=== PATIENT | female | born 1960 | race Caucasian/White ===

== ENCOUNTER 2018-04-14 04:39 | Emergency (ER) | payer MEDICARE, MEDICAID, SELFPAY ==
[2018-04-14 04:40] VITALS: BP 177/111; PULSE 90; RESP 17; TEMP 36.6; O2SAT 93; BMI 35.4
--- NOTE | 2018-04-14 04:48 | ED.VISSUMM ---
- ER Visit Summary Date of Service: 04/14/18 Chief Complaint: Constipation with abdominal cramping History of Present Illness: The patient is a 58 F with a history of hypertension and anxiety and depression. Only prior abdominal surgeries were for a C-sections ?2 and a tubal ligation. Patient states for the last 5-7 days she has had no significant bowel movement. She has a history of constipation. Denies any fever. States she is has lower abdominal cramping. Denies any dysuria, hematuria or urgency. States she is urinating normally. Denies any vaginal bleeding or discharge. Denies any trauma. States she has had some nausea and vomiting. Has never had a bowel obstruction. Has a known umbilical hernia. Physical Examination: Well-appearing older female. Vital signs are stable and afebrile. She does not look septic or toxic. She is in no acute distress. H EENT exam unremarkable. Moist wheeze membranes. Neck nontender. Lungs coarse breath sounds with a history of smoking but no rhonchi or rales. A few scattered minor wheezes. Heart regular rate and rhythm no murmur. Abdomen is soft. Nondistended. Normal bowel sounds. She is overweight. There is a umbilical hernia that easily reduces. It is not strangulated or incarcerated. It is nontender. She has no peritoneal signs. No masses. No pulsatile mass. There is no reproducible tenderness. Moving all 4 extremities. Neurovascularly intact. Back nontender. Neurologically awake and alert with no focal motor deficits. Test Results: Single view KUB film showed increased stool consistent with constipation otherwise unremarkable bowel gas pattern. No signs of obstruction. Emergency Department Course and Treatment: Patient will be treated his constipation. Her abdomen is benign. She will be discharged home with magnesium citrate. Treatment Plan: Oral magnesium citrate. Increase fiber and fluids. Stool softener as needed. Disposition: Discharge Impression: Acute constipation with abdominal cramping This note was generated with [employer] dictation software. It may contain incorrect words, spelling, and punctuation that were not noted in review of the chart prior to signing ED Disposition - Plan for ED Patient: Disposition: Home or Assisted Living Chief Complaint: Abd Pain Instructions: ED Constipation Referrals: Gloria Sheridan MD [Primary Care Provider] - 1-2 Days if not improving Additional Instructions: Plenty of water, fiber such as fruits and vegetables to help with constipation. Magnesium citrate to help with a bowel movement. Follow-up with the primary care physician if not improving.
--- NOTE | 2018-04-14 04:51 | ED.DEP ---
ED Disposition - Plan for ED Patient: Disposition: Home or Assisted Living Chief Complaint: Abd Pain Instructions: ED Constipation Prescriptions: Lisinopril/Hydrochlorothiazide [Zestoretic 20-12.5 mg Tablet] 1 ea PO DAILY #30 tab Referrals: Gloria Sheridan MD [Primary Care Provider] - 1-2 Days if not improving Additional Instructions: Plenty of water, fiber such as fruits and vegetables to help with constipation. Magnesium citrate to help with a bowel movement. Follow-up with the primary care physician if not improving.
[2018-04-14] MEDS: Magnesium Citrate 300 ML PO (05:27)
[2018-04-14 05:29] VITALS: PULSE 66; RESP 15; O2SAT 95
== END 2018-04-14 05:30 | disposition home or self-care (01) ==
PROVIDERS: Emergency Provider Emergency Medicine; Family Provider Internal Medicine; PCP Internal Medicine
DX: K59.00 Constipation, unspecified (principal); R10.9 Unspecified abdominal pain; R11.2 Nausea with vomiting, unspecified; K42.9 Umbilical hernia without obstruction or gangrene; I10 Essential (primary) hypertension; F41.9 Anxiety disorder, unspecified; F32.9 Major depressive disorder, single episode, unspecified; Z79.899 Other long term (current) drug therapy; Z72.0 Tobacco use
CPT/HCPCS: 74018; 99282

== ENCOUNTER 2018-04-24 05:58 | Emergency (ER) | payer MEDICARE, MEDICAID, SELFPAY ==
[2018-04-24 05:59] VITALS: BP 126/78; PULSE 92; RESP 22; TEMP 36.6; O2SAT 93; BMI 37.0
--- NOTE | 2018-04-24 06:17 | ED.DCSUM_ITS ---
- ER Visit Summary Date of Service: 04/24/18 Chief Complaint: Abdominal pain, constipation History of Present Illness: The patient is a 58 F who was seen in the ER on April 14 for constipation. A KUB revealed no obstruction. She was given magnesium citrate. Patient states this did clean her out but her symptoms have returned. She presents tonight by squad. She states she last ate yesterday morning. She is passing small pieces of hard stool. She has been passing gas. Past history significant for constipation, anxiety, hypertension, depression. She has had 2 prior C-sections and a tubal ligation. She does have an umbilical hernia. Physical Examination: Vital signs are unremarkable. Patient sitting upright in bed, moaning and rocking back and forth. Heart is regular rate and rhythm. Lung sounds are clear. Abdomen is soft with mild tenderness in the lower abdomen. There is no guarding or rebound. Hypoactive but present bowel sounds are noted throughout. Test Results: CBC was a white count of 18.4 but normal differential is noted. Hemoglobin is 16.2. Chemistry studies grossly unremarkable. CT scan of the abdomen and pelvis is pending. Emergency Department Course and Treatment: Patient was given morphine, Zofran, Bentyl, and IV fluids. On repeat evaluation she is resting much more comfortably. We will await CT scan results for final disposition and treatment. Treatment Plan: [] Disposition: [] Impression: 1. Abdominal pain 2. Constipation This note was generated with [employer] dictation software. It may contain incorrect words, spelling, and punctuation that were not noted in review of the chart prior to signing ED Disposition - Plan for ED Patient: Chief Complaint: Abd Pain Referrals: Gloria Sheridan MD [Primary Care Provider] -
[2018-04-24] MEDS: Ondansetron 4 MG/2 ML Vial IV (06:19)
[2018-04-24] MEDS: Dicyclomine 20 MG/2 ML Vial IM (06:19)
[2018-04-24] MEDS: Morphine 4 MG/ML Syringe IV (06:19)
[2018-04-24] MEDS: 0.9% Normal Saline 1,000 ML 150 ML IV (06:19)
[2018-04-24 06:36] LABS: Anion Gap 10 (5-15); BUN 13 mg/dL (7-18); BUN/Creat Ratio 11.8 RATIO (10-20); Calcium,Total 9.8 mg/dL (8.5-10.1); Chloride 102 mmol/L (98-107); EST Glomerular Filtration Rate 54 mL/min (>60); Est Glom Filt Rate - Afr Amer 65 mL/min (>60); Estimated Creatinine Clearance 46.96 ml/min; Glucose 142 mg/dL (74-106); Potassium 4.4 mmol/L (3.5-5.1); Sodium Level 137 mmol/L (136-145)
[2018-04-24 06:45] LABS: Absolute Lymphocyte Count 7.07 X10^3/ul (0.83-4.51); Absolute Neutrophil Count 9.7 X10^3/uL (2.0-7.7); Basophil# 0.08 X10^3/uL; Basophil% 0.4 % (0-1); Eosinophil# 0.26 X10^3/uL; Eosinophils% 1.4 % (0-5); Hematocrit 48.4 % (37-47); Hemoglobin 16.2 g/dl (12.0-15.0); Lymphocyte # 7.07 X10^3/ul (4.0); Lymphocyte % 38.5 % (19-41); Mean Corp Hgb Conc 33.5 g/gl (32-36); Mean Corpuscular Volume 95.7 fL (81-99); Mean Platelet Vol. 10.3 fl (6.2-12.0); Monocyte# 1.25 X10^3/uL; Monocyte% 6.8 % (0-10); Neutrophil # 9.68 X10^3/uL (2.7-7.7); Neutrophil % 52.7 % (47-70); Platelet Count 324 K/mm3 (150-450); RBC Distribution Width CV 13.2 % (11.6-14.6); RBC Distribution Width SD 45.7 fl (35.1-43.9); Red Blood Count 5.06 M/mm3 (4.2-5.4); White Blood Count 18.4 K/mm3 (4.4-11.0)
[2018-04-24 06:48] LABS: Differential Indicated SCAN CRITERIA MET; POSITIVE COUNT NO; POSITIVE DIFFERENTIAL YES; POSITIVE MORPHOLOGY NO
[2018-04-24 08:55] VITALS: BP 138/64; PULSE 72; RESP 15; O2SAT 96
[2018-04-24 10:17] VITALS: BP 124/69; PULSE 71; RESP 16; O2SAT 95
--- NOTE | 2018-04-24 12:28 | ED.DEP ---
ED Disposition - Plan for ED Patient: Chief Complaint: Abd Pain Instructions: ED Abdominal Pain Unkn Cause Prescriptions: Hydrocodone/Acetaminophen [[place] 5-325 Tablet] 1 ea PO 4X/DAY PRN PRN 5 Days #20 tab PRN Reason: Pain Metronidazole [Flagyl] 500 mg PO Q8H #21 tab Ciprofloxacin [Cipro] 500 mg PO BID #14 tab Referrals: Gloria Sheridan MD [Primary Care Provider] - 3-5 Days Sarita Montalvo MD [STAFF PHYSICIAN] - As soon as possible
--- NOTE | 2018-04-24 12:30 | ED.VISSUMM ---
- ER Visit Summary Date of Service: 04/24/18 Chief Complaint: [Abdominal pain] History of Present Illness: The patient is a 58 F [who presented to the emergency department complaint of abdominal pain that she has had for over a week. This is an addendum to initial dictation by Dr. Gregoria Belcher who fully evaluated patient initially saw the patient. Care of patient turned over to me in the morning awaiting results of CT scan of abdomen and pelvis. Patient apparently has been having some constipation issues and lower abdominal pain and cramping. Patient has not had any blood in her stool. She has not had any fevers. Patient's initial white blood cell count was elevated at 18,000. CT scan of the abdomen and pelvis obtained was read by radiology as 4.2 cm x 3.9 cm and homogenous hypodensity in the right adrenal gland and recommend correlation with MRI. CT scan also showed 3.2 x 2.5 x 4.6 cm hypodense mass in the cervix and recommended ultrasound for further evaluation. Ultrasound was obtained which showed a 3.3 x 3 x 2.3 cm complex solid cystic mass seen in the cul-de-sac which may represent an ovarian mass.] Physical Examination: [Patient continues to have some discomfort over the left lower quadrant. Her pain is significantly improved compared to presentation.] Test Results: [] Emergency Department Course and Treatment: [I discussed case with Dr. Montalvo who asked to see the patient in the office after discharge from ER.] Treatment Plan: [Patient will go up to the [facility] after discharge from ER. Patient also will follow up with her primary care physician regarding the findings on her adrenal gland to have outpatient MRI to evaluate further. Patient will be given a prescription for Cipro and Flagyl as I cannot rule out early diverticulitis given the location of the patient's pain and the elevated white count. Patient also describing a lot of cramping and pain with defecation. Patient also will be given a prescription for [place] for pain. Patient advised to take a daily stool softener.] Disposition: [Discharged home in stable condition] Impression: [Abdominal pain Adnexal mass Right adrenal mass] This note was generated with [employer] dictation software. It may contain incorrect words, spelling, and punctuation that were not noted in review of the chart prior to signing ED Disposition - Plan for ED Patient: Chief Complaint: Abd Pain Instructions: ED Abdominal Pain Unkn Cause Prescriptions: Hydrocodone/Acetaminophen [[place] 5-325 Tablet] 1 ea PO 4X/DAY PRN PRN 5 Days #20 tab PRN Reason: Pain Metronidazole [Flagyl] 500 mg PO Q8H #21 tab Ciprofloxacin [Cipro] 500 mg PO BID #14 tab Referrals: Gloria Sheridan MD [Primary Care Provider] - 3-5 Days Sarita Montalvo MD [STAFF PHYSICIAN] - As soon as possible
[2018-04-24] MEDS: metroNIDAZOLE 500 MG Tablet PO (12:45)
[2018-04-24] MEDS: Ciprofloxacin 500 MG Tablet PO (12:47)
[2018-04-24 12:53] VITALS: BP 128/74; PULSE 82; RESP 14; O2SAT 97; O2SAT 98
== END 2018-04-24 12:56 | disposition home or self-care (01) ==
PROVIDERS: Emergency Provider Emergency Medicine; Family Provider Internal Medicine; PCP Internal Medicine
DX: R10.32 Left lower quadrant pain (principal); R19.09 Other intra-abdominal and pelvic swelling, mass and lump; E27.9 Disorder of adrenal gland, unspecified; K59.00 Constipation, unspecified; F41.9 Anxiety disorder, unspecified; I10 Essential (primary) hypertension; F32.9 Major depressive disorder, single episode, unspecified; K42.9 Umbilical hernia without obstruction or gangrene; Z79.899 Other long term (current) drug therapy; N83.209 Unspecified ovarian cyst, unspecified side; N94.9 Unspecified condition associated with female genital organs and menstrual cycle
CPT/HCPCS: 74177; 76856; 80048; 82378; 85025; 86304; 96361; 96374; 96375; 99285; J7030; Q9967; A4216; J2405

== ENCOUNTER → 2018-04-24 13:38 | Outpatient (CLI) | payer MEDICARE, MEDICAID, SELFPAY ==
[2018-04-26 10:20] LABS: Cancer Antigen 125 28.9 U/mL (0.0-38.1); Carcinoembryonic Antigen 4.2 ng/mL (0.0-4.7)
== END ==
PROVIDERS: Family Provider Internal Medicine; PCP Internal Medicine; Visit Provider Nurse Practitioner Women's Health
DX: N83.209 Unspecified ovarian cyst, unspecified side (principal); N94.9 Unspecified condition associated with female genital organs and menstrual cycle
CPT/HCPCS: 82378; 86304

== ENCOUNTER 2018-05-14 06:10 | Emergency (ER) | payer MEDICARE, MEDICAID, SELFPAY ==
[2018-05-14 06:17] VITALS: BP 127/63; PULSE 87; RESP 20; TEMP 36.8; O2SAT 95; BMI 37.8
--- NOTE | 2018-05-14 06:31 | CT_ITS ---
STUDY: CT ABDOMEN WITH CONTRAST REASON FOR EXAM: Female, 58 years old. Abdominal pain and constipation. History of recent bowel surgery. Recent oophorectomy. RADIATION DOSAGE (If Supplied By Facility): CTDIvol = ( 18.36 ) mGy, DLP = ( 1162.03 ) mGycm TECHNIQUE: Transaxial images were obtained post I.V. administration of 100 ml of Isovue 300 contrast, and with oral contrast. Sagittal and coronal images were reconstructed. Individualized dose optimization techniques were used for this CT. COMPARISON: Comparison is made with prior study dated April 24, 2018. FINDINGS: Stable minimal increased linear markings in the anterior medial aspect of the lingular segment of the left upper lobe. The visualized portions of the heart are within normal limits. There is hepatomegaly with diffuse hepatic enlargement. Normal gallbladder and extrahepatic biliary system. Normal spleen. Normal pancreas. 4.2 cm x 3.9 cm hypodense mass in the right adrenal gland. This appears to contain fat within it suggestive of a large adrenal adenoma. Normal right kidney. Normal left kidney. There is a small hiatal hernia. Normal small intestine. There are multiple colonic diverticula consistent with diverticulosis. The appendix is visualized and appears normal. There is diffuse atherosclerotic calcification of the abdominal aorta, without a demonstrated aneurysm. Once again, mural thrombus is seen. The distal abdominal aorta has a transverse dimension of 2.3 cm. Normal inferior vena cava. Normal retroperitoneum. Stable 3.7 cm x 1.7 cm cystic structure is seen in the region of the uterine cervix. This may represent a large nabothian cyst. Since prior study, there has been repair of the umbilical hernia. Postoperative changes are seen in the subcutaneous fat. There are mild degenerative changes of the visualized lumbar spine. CT/Abdomen/Pelvis WITH Contrast IMPRESSION: Sigmoid diverticulosis. Stable cystic structure in the region of the uterine fundus suggestive of a possible nabothian cyst. Postoperative changes in the region of the umbilical hernia repair. Electronically Signed: Richard Ndiaye MD at 9:14 EDT Tel [phone], Service support ,
[2018-05-14] MEDS: 0.9% Normal Saline 1,000 ML 150 ML IV (06:41)
[2018-05-14 06:44] LABS: Mucous, Urine 0 SEEN /hpf (<or=2+); Red Blood Cells-Urine 0 SEEN /hpf (0-5)
[2018-05-14 06:54] LABS: Color, Urine Yellow (Yellow); Glucose, Dipstick Normal (Normal); Ketone-Dipstick Negative (Negative); Leukocyte Esterase-Dipstick 500 /ul (Negative); Nitrite-Dipstick Negative (Negative); Occult Blood-Urine 10 /ul (Negative); Protein-Dipstick Negative (Negative); Urine Bilirubin Dipstick Negative (Negative); Urine Clarity Clear (Clear); Urine Urobilinogen Normal (Normal)
[2018-05-14 07:02] LABS: Absolute Lymphocyte Count 3.33 X10^3/ul (0.83-4.51); Absolute Neutrophil Count 9.2 X10^3/uL (2.0-7.7); Bacteria RARE /hpf (None Seen); Basophil# 0.04 X10^3/uL; Basophil% 0.3 % (0-1); Eosinophils% 0.7 % (0-5); Hematocrit 44.4 % (37-47); Hemoglobin 14.6 g/dl (12.0-15.0); Lymphocyte # 3.33 X10^3/ul (4.0); Lymphocyte % 23.9 % (19-41); Mean Corp Hgb Conc 32.9 g/gl (32-36); Mean Corpuscular Hgb 31.1 pg (27.0-32.0); Mean Corpuscular Volume 94.7 fL (81-99); Mean Platelet Vol. 10.1 fl (6.2-12.0); Monocyte# 1.22 X10^3/uL; Monocyte% 8.7 % (0-10); Neutrophil # 9.24 X10^3/uL (2.7-7.7); Neutrophil % 66.3 % (47-70); Platelet Count 291 K/mm3 (150-450); RBC Distribution Width CV 13.3 % (11.6-14.6); RBC Distribution Width SD 45.7 fl (35.1-43.9); Red Blood Count 4.69 M/mm3 (4.2-5.4); Squamous Epithelial Cells - UA 5-10 SEEN /hpf (5-10); White Blood Cells 5-10 SEEN /hpf (0-5)
[2018-05-14 07:07] LABS: POSITIVE COUNT NO; POSITIVE DIFFERENTIAL NO; POSITIVE MORPHOLOGY NO
[2018-05-14 07:09] LABS: Anion Gap 10 (5-15); BUN 14 mg/dL (7-18); BUN/Creat Ratio 16.1 RATIO (10-20); Calcium,Total 9.1 mg/dL (8.5-10.1); Chloride 99 mmol/L (98-107); Creatinine, Serum 0.87 mg/dL (0.55-1.02); EST Glomerular Filtration Rate 71 mL/min (>60); Est Glom Filt Rate - Afr Amer 86 mL/min (>60); Estimated Creatinine Clearance 59.38 ml/min; Glucose 119 mg/dL (74-106); Potassium 3.9 mmol/L (3.5-5.1); Sodium Level 135 mmol/L (136-145)
--- NOTE | 2018-05-14 07:18 | ED.VISSUMM ---
- ER Visit Summary Date of Service: 05/14/18 Chief Complaint: Abdominal pain, constipation History of Present Illness: The patient is a 58 F with history of recurrent abdominal pain and constipation. On workup approximately 1 month ago patient was found to have what appeared to be left ovarian mass. She underwent BSO/hernia repair surgery May 06 for this pelvic mass at [facility] in [place]. Patient states that the pathology report on the ovaries was normal. She states the surgeon told her there is a cystic-like structure in the left lower quadrant but the surgeon believes to be part of the bowel that may be causing intermittent obstruction. Patient now presents with recurrent left lower quadrant pain and spasms and reports constipation. She states she had a small bowel movement this morning prior to arrival. Last bowel movement prior to that was 2 days ago. Physical Examination: Vital signs are unremarkable. Patient is sitting upright in bed. She is intermittently tearful. Head neck examination unremarkable. Heart is regular rate and rhythm. Lung sounds are clear. Abdomen is soft with mild lower abdominal tenderness. No guarding or rebound. Hypoactive bowel sounds noted throughout. Laparoscopy sites are clean without sign of infection. Test Results: CBC was a white count of 14.0 with normal differential. Chemistry studies unremarkable. Urinalysis shows 5-10 white cells, however there are 5-10 epithelial cells as well. No nitrites are noted. Emergency Department Course and Treatment: Patient is given IV fluids. She declines anything for pain. CT abdomen pelvis with contrast will be obtained. This will be sent out to oncoming physician. Treatment Plan: [] Disposition: Pending CT scan Impression: Postop abdominal pain This note was generated with [employer] dictation software. It may contain incorrect words, spelling, and punctuation that were not noted in review of the chart prior to signing ED Disposition - Plan for ED Patient: Chief Complaint: Abd Pain Referrals: Gloria Sheridan MD [Primary Care Provider] -
--- NOTE | 2018-05-14 07:21 | ED.DCSUM_ITS ---
- ER Visit Summary Date of Service: 05/14/18 Chief Complaint: Abdominal pain, constipation History of Present Illness: The patient is a 58 F with history of recurrent abdominal pain and constipation. On workup approximately 1 month ago patient was found to have what appeared to be left ovarian mass. She underwent BSO/ hernia repair surgery May 06 for this pelvic mass at [facility] in [place]. Patient states that the pathology report on the ovaries was normal. She states the surgeon told her there is a cystic-like structure in the left lower quadrant but the surgeon believes to be part of the bowel that may be causing intermittent obstruction. Patient now presents with recurrent left lower quadrant pain and spasms and reports constipation. She states she had a small bowel movement this morning prior to arrival. Last bowel movement prior to that was 2 days ago. Physical Examination: Vital signs are unremarkable. Patient is sitting upright in bed. She is intermittently tearful. Head neck examination unremarkable. Heart is regular rate and rhythm. Lung sounds are clear. Abdomen is soft with mild lower abdominal tenderness. No guarding or rebound. Hypoactive bowel sounds noted throughout. Laparoscopy sites are clean without sign of infection. Test Results: CBC was a white count of 14.0 with normal differential. Chemistry studies unremarkable. Urinalysis shows 5-10 white cells, however there are 5-10 epithelial cells as well. No nitrites are noted. Emergency Department Course and Treatment: Patient is given IV fluids. She declines anything for pain. CT abdomen pelvis with contrast will be obtained. This will be sent out to oncoming physician. Treatment Plan: [] Disposition: Pending CT scan Impression: Postop abdominal pain This note was generated with [employer] dictation software. It may contain incorrect words, spelling, and punctuation that were not noted in review of the chart prior to signing ED Disposition - Plan for ED Patient: Chief Complaint: Abd Pain Referrals: Gloria Sheridan MD [Primary Care Provider] -
[2018-05-14 08:38] VITALS: BP 155/74; PULSE 87; RESP 16; O2SAT 100
--- NOTE | 2018-05-14 09:32 | ED.DCSUM_ITS ---
- ER Visit Summary Date of Service: 05/14/18 Chief Complaint: [] History of Present Illness: The patient is a 58 F [] Physical Examination: [] Test Results: [] Emergency Department Course and Treatment: [] Treatment Plan: [] Disposition: [] Impression: [] This note was generated with [employer] dictation software. It may contain incorrect words, spelling, and punctuation that were not noted in review of the chart prior to signing ED Disposition - Plan for ED Patient: Disposition: Home or Assisted Living Chief Complaint: Abd Pain Instructions: ED Constipation, ED Abdominal Pain Unkn Cause Prescriptions: Dicyclomine HCl [Bentyl] 20 mg PO TIDAC #20 cap Referrals: Gloria Sheridan MD [Primary Care Provider] - Additional Instructions: Drink/take Metamucil 3 times a day until your bowels began to move. After you have results decrease to Metamucil twice a day.
[2018-05-14 10:22] VITALS: BP 154/78; PULSE 81; RESP 16; O2SAT 98
--- NOTE | 2018-05-14 11:01 | ED.VISSUMM ---
- ER Visit Summary Date of Service: 05/14/18 Chief Complaint: [] History of Present Illness: The patient is a 58 F [] Physical Examination: [] Test Results: [] Emergency Department Course and Treatment: [] Treatment Plan: [] Disposition: [] Impression: [] This note was generated with [employer] dictation software. It may contain incorrect words, spelling, and punctuation that were not noted in review of the chart prior to signing ED Disposition - Plan for ED Patient: Disposition: Home or Assisted Living Chief Complaint: Abd Pain Instructions: ED Abdominal Pain Unkn Cause, ED Constipation Prescriptions: Dicyclomine HCl [Bentyl] 20 mg PO TIDAC #20 cap Psyllium Husk [Metamucil] 660 gm PO TID #1 powder Referrals: Gloria Sheridan MD [Primary Care Provider] - Additional Instructions: Drink/take Metamucil 3 times a day until your bowels began to move. After you have results decrease to Metamucil twice a day.
--- NOTE | 2018-05-14 11:04 | ED.DCSUM_ITS ---
- ER Visit Summary Date of Service: 05/14/18 Chief Complaint: [] History of Present Illness: The patient is a 58 F [] Physical Examination: [] Test Results: [] Emergency Department Course and Treatment: [] Treatment Plan: [] Disposition: [] Impression: [] This note was generated with [employer] dictation software. It may contain incorrect words, spelling, and punctuation that were not noted in review of the chart prior to signing ED Disposition - Plan for ED Patient: Disposition: Home or Assisted Living Chief Complaint: Abd Pain Instructions: ED Abdominal Pain Unkn Cause, ED Constipation Prescriptions: Dicyclomine HCl [Bentyl] 20 mg PO TIDAC #20 cap Psyllium Husk [Metamucil] 660 gm PO TID #1 powder Referrals: Gloria Sheridan MD [Primary Care Provider] - Additional Instructions: Drink/take Metamucil 3 times a day until your bowels began to move. After you have results decrease to Metamucil twice a day.
== END 2018-05-14 11:00 | disposition home or self-care (01) ==
PROVIDERS: Emergency Medicine; Emergency Provider Emergency Medicine; Family Provider Internal Medicine; PCP Internal Medicine
DX: R10.32 Left lower quadrant pain (principal); Z98.890 Other specified postprocedural states; Z90.722 Acquired absence of ovaries, bilateral; K59.00 Constipation, unspecified; K57.30 Diverticulosis of large intestine without perforation or abscess without bleeding; N85.8 Other specified noninflammatory disorders of uterus; K21.9 Gastro-esophageal reflux disease without esophagitis; I10 Essential (primary) hypertension; F41.9 Anxiety disorder, unspecified; F32.9 Major depressive disorder, single episode, unspecified; Z87.19 Personal history of other diseases of the digestive system; Z79.899 Other long term (current) drug therapy; Z72.0 Tobacco use
CPT/HCPCS: 74177; 80048; 81001; 85025; 96360; 96361; 99285; Q9967

== ENCOUNTER 2018-06-22 07:10 | Inpatient (IN) | payer MEDICARE, MEDICAID, SELFPAY ==
[2018-06-22 07:11] VITALS: BP 150/107; PULSE 80; RESP 18; TEMP 37; O2SAT 99; BMI 36.6
--- NOTE | 2018-06-22 07:28 | CT_ITS ---
STUDY: CT ABDOMEN AND PELVIS WITH CONTRAST REASON FOR EXAM: Female, 58 years old. Abdominal pain, nausea and bloody stool. RADIATION DOSAGE (If Supplied By Facility): CTDIvol = ( 17.07 ) mGy, DLP = ( 1197.95 ) mGycm TECHNIQUE: Transaxial images were obtained from the dome of the diaphragm to the symphysis pubis without oral contrast. 100 ml of Isovue 300 contrast was administered. Sagittal and coronal images were reconstructed. Individualized dose optimization techniques were used for this CT. COMPARISON: 05/14/2018. FINDINGS: The visualized lung bases are essentially unremarkable. The visualized portions of the heart are within normal limits. Normal liver. Normal gallbladder and extrahepatic biliary system. Normal spleen. Normal pancreas. There again is a 4 cm hypodense mass in the right adrenal gland unchanged since prior examination which may represent adenoma. The left adrenal gland is unremarkable. Normal right kidney. Normal left kidney. There is a small hiatal hernia. There is thickening of the gastric wall probably due to underdistention. The small bowel loops are normal in caliber. There is fecal retention. There is diverticulosis of the sigmoid colon. There is thickening of the descending colon and proximal sigmoid colon likely due to colitis.. There is no evidence of free air. No drainable abscess is seen. The appendix is visualized and appears normal. There again are atherosclerotic calcifications of the abdominal aorta with intramural thrombus. There is ectasia of the distal abdominal aorta. Normal inferior vena cava. Normal retroperitoneum. Normal urinary bladder. There again is a cystic lesion in the region of the cervix measuring about 4.86 x 3 cm unchanged since prior exam. There again is stranding in the anterior abdominal wall consistent with previous hernia repair. Mild degenerative changes in the lower thoracic spine are again seen. CT/Abdomen/Pelvis W IV Cont ONLY IMPRESSION: 1. Thickening of the distal descending colon consistent with colitis extending to the to the region of the sigmoid diverticulosis. 2. No drainable abscess is seen. 3. Persistent cystic lesion in the region of the cervix unchanged since the prior exam. 4. Right adrenal mass unchanged since prior examination. Electronically Signed: Jed Hoff MD at 9:24 EDT Tel , Service support ,
[2018-06-22] MEDS: 0.9% Normal Saline 1,000 ML 125 ML IV ×3 (07:44→17:12)
[2018-06-22] MEDS: Morphine 4 MG/ML Syringe IV (07:44)
[2018-06-22] MEDS: Ondansetron 4 MG/2 ML Vial IV (07:45)
[2018-06-22 07:53] LABS: Absolute Lymphocyte Count 2.37 X10^3/ul (0.83-4.51); Absolute Neutrophil Count 14.8 X10^3/uL (2.0-7.7); Basophil# 0.05 X10^3/uL; Basophil% 0.3 % (0-1); Eosinophil# 0.01 X10^3/uL; Eosinophils% 0.1 % (0-5); Hematocrit 47.3 % (37-47); Hemoglobin 15.6 g/dl (12.0-15.0); Lymphocyte # 2.37 X10^3/ul (4.0); Lymphocyte % 13.1 % (19-41); Mean Corpuscular Hgb 31.4 pg (27.0-32.0); Mean Corpuscular Volume 95.2 fL (81-99); Mean Platelet Vol. 10.1 fl (6.2-12.0); Monocyte# 0.73 X10^3/uL; Neutrophil # 14.84 X10^3/uL (2.7-7.7); Neutrophil % 82.2 % (47-70); Platelet Count 264 K/mm3 (150-450); RBC Distribution Width CV 14.1 % (11.6-14.6); RBC Distribution Width SD 48.8 fl (35.1-43.9); Red Blood Count 4.97 M/mm3 (4.2-5.4); White Blood Count 18.1 K/mm3 (4.4-11.0)
--- NOTE | 2018-06-22 07:54 | ED.VISSUMM ---
- ER Visit Summary Date of Service: 06/22/18 Chief Complaint: Abdominal pain History of Present Illness: The patient is a 58 F who states that last evening she developed nausea and vomiting. He was having abdominal cramps. This morning she had several bowel movements (3) that were loose and had bright red blood with occasional clots. The patient states that she had surgery at the end of April at [facility]. She had umbilical hernia repair and bilateral oophorectomy. The oophorectomy reportedly was done for left ovarian mass per her was found not to be connected with the ovary and was determined to be benign. She took Bentyl at around 11 PM last night and states that helped. She has a history of diverticulosis. Physical Examination: Afebrile vital signs are stable Gen: Well-nourished well-developed obesity Head: Normocephalic atraumatic Eyes: Perrl EOMI ENT: TMs clear no rhinorrhea moist mucous membranes Neck: Supple no lymphadenopathy no JVD nontender CVS: Regular rate rhythm no murmurs normal S1-S2 Respiratory: No distress clear to auscultation bilaterally chest nontender Abdomen: Soft tender in the suprapubic and left lower quadrant regions nondistended normal bowel sounds no masses there are well-healed laparoscopic port incisions Back: Nontender Extremity: Nontender no edema Skin: Normal color no rash Neuro: alert orientated ?3 CN II-XII intact normal strength sensation reflexes gait cerebellar Psych: Anxious and dramatic affect and seemingly writhing around on the bed Test Results: White count elevated 18.1. Lactic acid 2.2. BUN of 20 with a creatinine of 0.95. Normal LFTs and lipase. CT of the abdomen pelvis with IV contrast demonstrated descending colitis. No obvious abscess. The see radiologist's read for further details. Emergency Department Course and Treatment: IV was established patient received IV fluids Zofran and morphine. She initially did not want any morphine and stated that she does not like the way that she feels however given her degree of moaning and writhing she decided she would take some. Before was pushed she was complaining that her whole arm was going numb but that resolved when it was identified that she had not yet received the medication. Since that time the patient has been resting quite comfortably even able to get some sleep. CT was reviewed with the patient as well as her lab work. She received Cipro and Flagyl. Plan is admission into the hospital. Impression: 1. Acute descending colitis 2. Sepsis This note was generated with [employer] dictation software. It may contain incorrect words, spelling, and punctuation that were not noted in review of the chart prior to signing ED Disposition - Plan for ED Patient: Chief Complaint: Abd Pain Referrals: Gloria Sheridan MD [Primary Care Provider] -
[2018-06-22 07:58] LABS: POSITIVE COUNT NO; POSITIVE DIFFERENTIAL NO; POSITIVE MORPHOLOGY NO
[2018-06-22 08:07] LABS: ALB/GLOB Ratio 0.8 RATIO (0.9-2.4); AST(SGOT) 16 U/L (15-37); Alanine Aminotransfer ALT/SGPT 22 U/L (13-56); Albumin, Serum 3.8 g/dL (3.2-5.0); Alkaline Phosphatase 92 U/L (45-117); Anion Gap 7 (5-15); BUN 20 mg/dL (7-18); Calcium,Total 9.7 mg/dL (8.5-10.1); Chloride 103 mmol/L (98-107); Creatinine, Serum 0.95 mg/dL (0.55-1.02); EST Glomerular Filtration Rate 64 mL/min (>60); Est Glom Filt Rate - Afr Amer 77 mL/min (>60); Estimated Creatinine Clearance 54.38 ml/min; Globulin 4.9 g/dL (2.2-4.2); Glucose 148 mg/dL (74-106); Lipase 64 U/L (73-393); Potassium 4.3 mmol/L (3.5-5.1); Protein, Total 8.7 g/dL (6.4-8.2); Sodium Level 136 mmol/L (136-145)
[2018-06-22 08:16] LABS: Lactic Acid 2.2 mmol/L (0.4-2.0)
--- NOTE | 2018-06-22 08:19 | ED.RN ---
lactic 2.2 called from the lab dr salcedo aware
[2018-06-22 08:28] LABS: International Normalized Ratio 0.9; Prothrombin Time (Protime)PT. 12.6 SECONDS (11.7-14.9)
[2018-06-22 08:29] LABS: Partial Thromboplast Time 30.9 Seconds (24.1-36.2)
[2018-06-22 09:00] VITALS: BP 129/56; PULSE 72; RESP 14; O2SAT 93
[2018-06-22] MEDS: Ciprofloxacin 400 MG/200 ML BAG 200 MG IV ×2 (09:37→21:31)
--- NOTE | 2018-06-22 09:51 | NURSING ---
DR ORANTES FOR DR PRESCOTT
--- NOTE | 2018-06-22 09:58 | NURSING ---
MED SURG ACUTE COLITIS ROBS
[2018-06-22 11:03] VITALS: BMI 35.9
[2018-06-22 11:22] VITALS: BP 115/77; PULSE 68; RESP 16; TEMP 36.9; O2SAT 93
[2018-06-22] MEDS: Morphine 2 MG/ML Syringe IV ×3 (11:42→22:17)
[2018-06-22] MEDS: Enoxaparin 40 MG/0.4 ML Syringe SC (11:44)
[2018-06-22 11:47] LABS: Reflex Lactate? Y
[2018-06-22 12:31] LABS: Lactic Acid 1.6 mmol/L (0.4-2.0)
[2018-06-22 14:47] VITALS: BP 100/52; PULSE 66; RESP 16; TEMP 37.2; O2SAT 92
--- NOTE | 2018-06-22 15:31 | HP.PCM_ITS ---
Problem List (1) HTN (hypertension) Status: Chronic (2) Colitis Status: Acute (3) GERD (gastroesophageal reflux disease) Status: Acute (4) HLD (hyperlipidemia) Status: Acute (5) Insomnia Status: Acute History of Present Illness Date of Admission: 06/22/18 Chief Complaint: Abdominal Pain The patient is a 58 year old F with a PMH as above who presents with a 1 day h/o abdominal pain, melena, and dry heaving with nausea. She has had this before with prior episodes of diverticulitis. She had recent abdominal surgery with an umbilical hernia repair as well as an oophorectomy for a mass that was benign. She is also aware of the adrenal mass. In the ER she had a CT scan with fat stranding in the LLQ without perforation. She had a leukocytosis to 18 and a lactic acid of 2.2. VSS. Some fevers and chills, but no SOB or CP. No radiation of her pain. Past Medical History Past Medical History (Chronic Problems): Chronic Problems (Last Updated 04/24/18 @ 13:20 by Chelsey Brunner) HTN (hypertension) (Chronic) Medical History: Medical History (Last Updated 04/24/18 @ 13:20 by Chelsey Brunner) Anxiety F41.9 Depression F32.9 History of high cholesterol Z86.39 PTSD (post-traumatic stress disorder) F43.10 Allergies Latex, Natural Rubber Allergy (Verified 06/22/18 11:15) Rash Penicillins Allergy (Verified 06/22/18 07:14) Rash Home Medications: Ambulatory Orders Medication Instructions Recorded Acetaminophen [Pain Relief] 500 mg PO Q6H PRN PRN 04/14/18 Lisinopril/Hydrochlorothiazide 1 ea PO DAILY #30 tab 04/14/18 [Zestoretic 20-12.5 mg Tablet] Omeprazole [Prilosec] 40 mg PO DAILY 04/24/18 Albuterol Inhaler [Ventolin Hfa 2 puff INHALATION Q4H PRN PRN 05/14/18 (SP)] Dicyclomine HCl [Bentyl] 20 mg PO TIDAC #20 cap 05/14/18 Hydroxyzine HCl 25 mg PO Q6H PRN 05/14/18 Simvastatin [Zocor] 40 mg PO QHS 06/22/18 traZODone [Desyrel] 50 mg PO QHS 06/22/18 Surgical History: Surgical History (Last Updated 04/24/18 @ 13:20 by Chelsey Brunner) H/O tubal ligation Z98.51 History of section, classical Z98.891 Smoking Status: Current every day smoker Alcohol: None Drugs: None - *Family History Maternal History Items: Diabetes, Heart Disease Review of Systems Constitutional: Reports: Chills, Fever HEENT: Denies: Head Aches, Sinus Congestion, Sinus Drainage Cardiovascular: Denies: Chest Pain, Palpitations Respiratory: Denies: Cough, Shortness of breath at rest, Sputum production Gastrointestinal: Reports: Abdominal Pain, Nausea, Melena. Denies: Vomiting Genitourinary: Denies: Dysuria Musculoskeletal: Denies: Joint Pain, Joint Tenderness Skin: Denies: Rash, Wounds Neurological: Denies: Numbness, Tingling, Focal weakness Psychiatric: Denies: Anxiety, Depression Hematologic/ Lymphatic: Denies: Easy Bruising, Easy Bleeding VTE Information - Inpt Only VTE Present on Admission: No Patient Problems: Active and Suspected Problems (Last Updated 04/24/18 @ 13:20 by Chelsey Brunner) Colitis (Acute) GERD (gastroesophageal reflux disease) (Acute) HLD (hyperlipidemia) (Acute) Insomnia (Acute) - Physical Exam General: Alert, Oriented x3, Cooperative, No apparent distress HEENT: Atraumatic, PERRLA, EOMI, Normocephalic Oral: Moist Mucosa Neck: Supple, No JVD Lungs: Normal air movement, No rhonchi, No rales, Wheezes Cardiovascular: Regular rate, Regular Rhythm, Normal S1, Normal S2, No murmurs Abdomen: Soft, Non-Distended, No Hepato-splenomegaly, Tender - mild, to LLQ Extremities: No edema, Capillary Refill Less than 3 Seconds Skin: No rashes, No breakdown Neurological: Neuro grossly intact, Sensory exam intact to light touch and pain Psych/Mental Status: Normal Affect, Appropriate Vital Signs Temp Pulse Resp BP Pulse Ox 98.9 F 66 16 100/52 L 92 06/22/18 14:47 06/22/18 14:47 06/22/18 14:47 06/22/18 14:47 06/22/18 14:47 Oxygen Delivery Method Room Air Weight: 209 lb Body Mass Index (BMI) 35.9 Laboratory Tests Past 24 Hrs 06/22/18 06/22/18 06/22/18 07:42 07:42 07:42 WBC 18.1 H RBC 4.97 Hgb 15.6 H Hct 47.3 H MCV 95.2 MCH 31.4 MCHC 33.0 RDW 14.1 RDW Differential 48.8 H Plt Count 264 MPV 10.1 Immature Gran % (Auto) 0.300 Neut % (Auto) 82.2 H Lymph % (Auto) 13.1 L Mckinley % (Auto) 4.0 Eos % (Auto) 0.1 Baso % (Auto) 0.3 Absolute Neuts (auto) 14.8 H Absolute Lymphs (auto) 2.37 Total Counted Not Reportable PT 12.6 INR 0.9 APTT 30.9 Sodium 136 Potassium 4.3 Chloride 103 Carbon Dioxide 26.0 Anion Gap 7 BUN 20 H Creatinine 0.95 Estim Creat Clear Calc 54.38 Est GFR (MDRD) Af Amer 77 Est GFR (MDRD) Non-Af 64 BUN/Creatinine Ratio 21.0 H Glucose 148 H Lactic Acid Calcium 9.7 Total Bilirubin 0.40 AST 16 ALT 22 Alkaline Phosphatase 92 Total Protein 8.7 H Albumin 3.8 Globulin 4.9 H Albumin/Globulin Ratio 0.8 L Lipase 64 L 06/22/18 06/22/18 07:42 11:55 WBC RBC Hgb Hct MCV MCH MCHC RDW RDW Differential Plt Count MPV Immature Gran % (Auto) Neut % (Auto) Lymph % (Auto) Mckinley % (Auto) Eos % (Auto) Baso % (Auto) Absolute Neuts (auto) Absolute Lymphs (auto) Total Counted PT INR APTT Sodium Potassium Chloride Carbon Dioxide Anion Gap BUN Creatinine Estim Creat Clear Calc Est GFR (MDRD) Af Amer Est GFR (MDRD) Non-Af BUN/Creatinine Ratio Glucose Lactic Acid 2.2 H 1.6 Calcium Total Bilirubin AST ALT Alkaline Phosphatase Total Protein Albumin Globulin Albumin/Globulin Ratio Lipase Assessment/Plan All Active Problems (Last Updated 04/24/18 @ 13:20 by Chelsey Brunner) Colitis (Acute) GERD (gastroesophageal reflux disease) (Acute) HLD (hyperlipidemia) (Acute) Insomnia (Acute) 1. Colitis - c/w Cipro flagyl for now - NPO - IVF@125 - Morphine PRN - Repeat lactate 1.6 2. Wheezing - she denies COPD/Asthma diagnosis - Will c/w albuterol 3. HTN/HLD - stable a 115/77 - C/w BP medications and statin 4. Depression/Anxiety/Insomnia - stable - c/w hydroxyzine and trazodone 5. GERD - stable - c/w PPI DVT: Lovenox Diet: NPO Code Visit Inpatient E&M: 57578 Init Hosp L3
[2018-06-22 20:15] VITALS: BP 106/47; PULSE 73; RESP 20; TEMP 37.1; O2SAT 96
[2018-06-22 20:20] VITALS: PULSE 76; RESP 20
[2018-06-22] MEDS: Atorvastatin Calcium 20 MG Tablet PO (22:09)
[2018-06-22] MEDS: traZODone 50 MG Tablet PO (22:09)
[2018-06-22] MEDS: 0.9% NaCl Peripheral Flush Adult/Peds IV ×2 (22:17→22:32)
[2018-06-23] MEDS: Morphine 2 MG/ML Syringe IV ×3 (03:39→15:50)
[2018-06-23] MEDS: 0.9% NaCl Peripheral Flush Adult/Peds IV (03:43)
[2018-06-23] MEDS: 0.9% Normal Saline 1,000 ML 125 ML IV ×3 (03:47→21:23)
[2018-06-23] MEDS: hydrOXYzine PAM 25 MG Capsule PO (03:47)
[2018-06-23 03:52] VITALS: BP 136/56; PULSE 73; RESP 18; TEMP 36.5; O2SAT 94
--- NOTE | 2018-06-23 03:53 | NURSING ---
Found patient sitting at side of bed talking on phone to her roommate. Patient was complaining that she hasnt been able to drink and eat since coming to this floor. Pt stated she was painful, and had stuffed up sinus from wearing 02 nasal cannula. Pt told roommate, she just wants to go home. When patient hung up. Nurse explained that nothing to eat or drink is the plan of care for someone with colitis. Pt c/o dry mouth, nurse encouraged patient to use mouth swabs set up at bedside for comfort of dry mouth. Pt very anxious. Nurse suggested that giving morphine for her pain, and vistaril for anxiety. Pt agreed to stay. Pt took a walk and is currently sitting in recliner about to fall asleep.
[2018-06-23 07:38] LABS: Absolute Lymphocyte Count 1.89 X10^3/ul (0.83-4.51); Absolute Neutrophil Count 8.1 X10^3/uL (2.0-7.7); Basophil# 0.02 X10^3/uL; Basophil% 0.2 % (0-1); Eosinophil# 0.03 X10^3/uL; Eosinophils% 0.3 % (0-5); Hematocrit 38.4 % (37-47); Hemoglobin 12.3 g/dl (12.0-15.0); Lymphocyte # 1.89 X10^3/ul (4.0); Lymphocyte % 17.4 % (19-41); Mean Corpuscular Hgb 31.1 pg (27.0-32.0); Mean Corpuscular Volume 97.2 fL (81-99); Monocyte# 0.85 X10^3/uL; Monocyte% 7.8 % (0-10); Neutrophil # 8.05 X10^3/uL (2.7-7.7); Neutrophil % 74.1 % (47-70); Platelet Count 194 K/mm3 (150-450); RBC Distribution Width CV 14.3 % (11.6-14.6); RBC Distribution Width SD 50.3 fl (35.1-43.9); Red Blood Count 3.95 M/mm3 (4.2-5.4); White Blood Count 10.9 K/mm3 (4.4-11.0)
[2018-06-23] MEDS: Dicyclomine 10 MG Capsule 20 MG PO ×3 (07:45→15:48)
[2018-06-23 07:50] LABS: POSITIVE COUNT NO; POSITIVE DIFFERENTIAL NO; POSITIVE MORPHOLOGY NO
[2018-06-23 07:54] VITALS: BP 115/45; PULSE 72; RESP 16; TEMP 37.3; O2SAT 92
[2018-06-23] MEDS: Acetaminophen 500 MG Tablet PO ×2 (08:02→23:14)
[2018-06-23 08:11] LABS: Anion Gap 6 (5-15); BUN 9 mg/dL (7-18); BUN/Creat Ratio 14.2 RATIO (10-20); Calcium,Total 8.6 mg/dL (8.5-10.1); Chloride 108 mmol/L (98-107); Creatinine, Serum 0.64 mg/dL (0.55-1.02); EST Glomerular Filtration Rate 101 mL/min (>60); Est Glom Filt Rate - Afr Amer 123 mL/min (>60); Estimated Creatinine Clearance 80.72 ml/min; Glucose 106 mg/dL (74-106); Potassium 3.8 mmol/L (3.5-5.1); Sodium Level 141 mmol/L (136-145)
[2018-06-23] MEDS: Ciprofloxacin 400 MG/200 ML BAG 200 MG IV ×2 (10:05→21:23)
[2018-06-23] MEDS: Enoxaparin 40 MG/0.4 ML Syringe SC (10:05)
[2018-06-23] MEDS: Pantoprazole Sodium 40 MG Tablet PO (10:07)
--- NOTE | 2018-06-23 11:20 | PCM.PN.HOSP ---
Patient Problems: Active and Suspected Problems (Last Updated 04/24/18 @ 13:20 by Chelsey Brunner) Colitis (Acute) GERD (gastroesophageal reflux disease) (Acute) HLD (hyperlipidemia) (Acute) Insomnia (Acute) Subjective: Feels a little better, still with abdominal pain though she has an appetite. She is unsure about discharge today and would like to go home tomorrow even if she tolerates a diet Vitals/I&O's: Vital Signs Temp Pulse Resp BP Pulse Ox 99.2 F H 72 16 115/45 L 92 06/23/18 07:54 06/23/18 07:54 06/23/18 07:54 06/23/18 07:54 06/23/18 07:54 Oxygen Flow Rate (L/min) 2 Oxygen Delivery Method Room Air Weight: 209 lb Body Mass Index (BMI) 35.9 Intake and Output for Last 24 Hours 06/21/18 06/22/18 06/23/18 23:59 23:59 23:59 Intake Total 650 / 650 1976 Output Total 400 / 400 700 / 700 Balance 250 / 250 1277 / 1277 General: Alert, Oriented x3, Cooperative, No apparent distress HEENT: Atraumatic, PERRLA, EOMI, Normocephalic Oral: Moist Mucosa Neck: Supple, No JVD Lungs: Normal air movement, No rhonchi, No rales, Wheezes Cardiovascular: Regular rate, Regular Rhythm, Normal S1, Normal S2, No murmurs Abdomen: Soft, Non-Distended, No Hepato-splenomegaly, Tender - mild, to LLQ Extremities: No edema, Capillary Refill Less than 3 Seconds Skin: No rashes, No breakdown Neurological: Neuro grossly intact, Sensory exam intact to light touch and pain Psych/Mental Status: Normal Affect, Appropriate Laboratory Results 06/22/18 11:55: Lactic Acid 1.6 06/23/18 07:02: WBC 10.9, RBC 3.95 L, Hgb 12.3, Hct 38.4, MCV 97.2, MCH 31.1, MCHC 32.0, RDW 14.3, RDW Differential 50.3 H, Plt Count 194, MPV 10.0, Immature Gran % (Auto) 0.200, Neut % (Auto) 74.1 H, Lymph % (Auto) 17.4 L, [place] % (Auto) 7.8, Eos % (Auto) 0.3, Baso % (Auto) 0.2, Absolute Neuts (auto) 8.1 H, Absolute Lymphs (auto) 1.89, Total Counted Not Reportable 06/23/18 07:02: Sodium 141, Potassium 3.8, Chloride 108 H, Carbon Dioxide 27.0, Anion Gap 6, BUN 9, Creatinine 0.64, Estim Creat Clear Calc 80.72, Est GFR (MDRD) Af Amer 123, Est GFR (MDRD) Non-Af 101, BUN/Creatinine Ratio 14.2, Glucose 106, Calcium 8.6 Current Medications Acetaminophen (Tylenol) 500 mg PO Q6H PRN PRN PRN Reason: PAIN Last Admin: 06/23/18 08:02 Dose: 500 mg Albuterol Sulfate (Ventolin Aerosols) 2.5 mg INHALATION Q4H PRN PRN PRN Reason: Wheezing Atorvastatin Calcium (Lipitor) 20 mg PO QHS [facility] Last Admin: 06/22/18 22:09 Dose: 20 mg Dicyclomine HCl (Bentyl) 20 mg PO TIDAC [facility] Last Admin: 06/23/18 10:12 Dose: 20 mg Enoxaparin Sodium (Lovenox) 40 mg SC DAILY@1000 [facility] Last Admin: 06/23/18 10:05 Dose: 40 mg Hydroxyzine Pamoate (Vistaril Pamoate Capsule) 25 mg PO Q6H PRN PRN PRN Reason: ANXIETY Last Admin: 06/23/18 03:47 Dose: 25 mg Sodium Chloride () 1,000 mls @ 125 mls/hr IV .Q8H [facility] Last Admin: 06/23/18 03:47 Dose: 125 mls/hr Ciprofloxacin (Cipro) 400 mg in 200 mls @ 200 mls/hr IV Q12 [facility] Last Admin: 06/23/18 10:05 Dose: 200 mls/hr Metronidazole (Flagyl) 500 mg in 100 mls @ 100 mls/hr IV Q8 [facility] Last Admin: 06/23/18 07:45 Dose: 100 mls/hr Magnesium Hydroxide (Milk Of Magnesia) 30 ml PO DAILY PRN PRN PRN Reason: Constipation Morphine Sulfate () 2 mg IV Q3H PRN PRN PRN Reason: SEVERE PAIN (6-06/05) Last Admin: 06/23/18 08:00 Dose: 2 mg Pantoprazole Sodium (Protonix) 40 mg PO DAILY [facility] Last Admin: 06/23/18 10:07 Dose: 40 mg Sodium Chloride () 5 - 30 ml IV UD PRN PRN Reason: SALINE FLUSH Last Admin: 06/23/18 03:43 Dose: 10 ml Trazodone HCl (Desyrel) 50 mg PO QHS [facility] Last Admin: 06/22/18 22:09 Dose: 50 mg Medical Necessity - Tobacco Use Smoking Status: Current every day smoker Assessment/Plan All Active Problems (Last Updated 04/24/18 @ 13:20 by Chelsey Brunner) Colitis (Acute) GERD (gastroesophageal reflux disease) (Acute) HLD (hyperlipidemia) (Acute) Insomnia (Acute) 1. Colitis - c/w Cipro flagyl for now - Full - IVF@125, can DC if tolerating PO - Morphine PRN - Repeat lactate 1.6 2. Wheezing - she denies COPD/Asthma diagnosis - Will c/w albuterol 3. HTN/HLD - stable a 115/45 - C/w BP medications and statin 4. Depression/Anxiety/Insomnia - stable - c/w hydroxyzine and trazodone 5. GERD - stable - c/w PPI DVT: Lovenox Diet: Fulls Code Visit Inpatient E&M: 68147 Subs Hosp L2
[2018-06-23 11:35] VITALS: BP 144/59; PULSE 72; RESP 16; TEMP 36.8; O2SAT 92
[2018-06-23 15:00] VITALS: BP 152/66; PULSE 73; RESP 16; TEMP 36.9; O2SAT 94
[2018-06-23 21:07] VITALS: BP 128/60; PULSE 74; RESP 20; TEMP 37.3; O2SAT 94
[2018-06-23] MEDS: traZODone 50 MG Tablet PO (22:38)
[2018-06-23] MEDS: Atorvastatin Calcium 20 MG Tablet PO (22:38)
[2018-06-24] MEDS: hydrOXYzine PAM 25 MG Capsule PO (01:32)
[2018-06-24 05:26] VITALS: BP 155/66; PULSE 77; RESP 18; TEMP 36.5; O2SAT 94
[2018-06-24] MEDS: 0.9% Normal Saline 1,000 ML 125 ML IV (06:18)
[2018-06-24 06:20] LABS: Anion Gap 7 (5-15); BUN 5 mg/dL (7-18); BUN/Creat Ratio 7.9 RATIO (10-20); Calcium,Total 8.6 mg/dL (8.5-10.1); Chloride 110 mmol/L (98-107); Creatinine, Serum 0.63 mg/dL (0.55-1.02); EST Glomerular Filtration Rate 102 mL/min (>60); Est Glom Filt Rate - Afr Amer 123 mL/min (>60); Glucose 101 mg/dL (74-106); Potassium 3.7 mmol/L (3.5-5.1); Sodium Level 144 mmol/L (136-145)
[2018-06-24] MEDS: Dicyclomine 10 MG Capsule 20 MG PO (07:07)
[2018-06-24 07:47] VITALS: PULSE 70; RESP 20; TEMP 36.8; O2SAT 97
--- NOTE | 2018-06-24 09:18 | DCINST_ITS ---
- Discharge Diagnoses Current Active Problems: Current Active and Chronic Problems (Last Updated 04/24/18 @ 13:20 by Chelsey Brunner) HTN (hypertension) (Chronic) Colitis (Acute) GERD (gastroesophageal reflux disease) (Acute) HLD (hyperlipidemia) (Acute) Insomnia (Acute) You will use the following diet at home:: Cardiac, Other - Soft light diet, advance as tolerated. Your food should be the consistency of: Soft (bite-sized & easy to chew/swallow) Discharge Activity: Return to Normal Activity, May not drive while taking narcotic pain medications. Weight Bearing Status: Full weight bearing Call your doctor if you observe: Fever of 101 or Higher, Shortness of breath, Dizziness, Fainting spells, Chest pain, Increased palpitations (irregular heartbeat), Uncontrolled pain Allergies/Adverse Reactions: Allergies Latex, Natural Rubber Allergy (Verified 06/22/18 11:15) Rash Penicillins Allergy (Verified 06/22/18 07:14) Rash Medications to take at Discharge Acetaminophen [Pain Relief] 500 mg PO Q6H PRN PRN 04/14/18 Lisinopril/Hydrochlorothiazide [Zestoretic 20-12.5 mg Tablet] 1 ea PO DAILY #30 tab 04/14/18 Omeprazole [Prilosec] 40 mg PO DAILY 04/24/18 Albuterol Inhaler [Ventolin Hfa] 2 puff INHALATION Q4H PRN PRN 05/14/18 Dicyclomine HCl [Bentyl] 20 mg PO TIDAC #20 cap 05/14/18 Hydroxyzine HCl 25 mg PO Q6H PRN 05/14/18 Simvastatin [Zocor] 40 mg PO QHS 06/22/18 traZODone [Desyrel] 50 mg PO QHS 06/22/18 Ciprofloxacin [Cipro] 500 mg PO BID #20 tablet 06/24/18 Metronidazole [Flagyl] 500 mg PO Q8H #30 tablet 06/24/18 Oxycodone [Oxyir] 5 mg PO Q8H PRN PRN 3 Days #10 tab 06/24/18 The following prescriptions were given: Oxycodone [Oxyir] 5 mg PO Q8H PRN PRN 3 Days #10 tab PRN Reason: Abdominal pain Metronidazole [Flagyl] 500 mg PO Q8H #30 tablet Ciprofloxacin [Cipro] 500 mg PO BID #20 tablet Primary Care Physician: Gloria Sheridan MD [Primary Care Provider] - Please follow up with your Primary Care Physician in: 1 week. Test Results: Test results from this visit will be discussed in further detail at your follow- up appointment, if applicable.
[2018-06-24] MEDS: Acetaminophen 500 MG Tablet PO (09:21)
[2018-06-24] MEDS: Morphine 2 MG/ML Syringe IV (09:24)
[2018-06-24] MEDS: Ciprofloxacin 400 MG/200 ML BAG 200 MG IV (09:25)
[2018-06-24] MEDS: Enoxaparin 40 MG/0.4 ML Syringe SC (09:28)
[2018-06-24] MEDS: Pantoprazole Sodium 40 MG Tablet PO (09:28)
[2018-06-24 09:50] VITALS: RESP 18; O2SAT 97
--- NOTE | 2018-06-24 10:30 | CASEMGMT ---
RN FREDDY Face to Face with patient for initial transition planning/care coordination assessment. RN CM introduced self and role at [facility]. Patient lying in bed, alert and oriented, friend at bedside. Patient willing to participate in assessment and is able to answer all questions appropriately. Care providers, pharmacy, and demographics verified. Patient wishes to discharge home, denies need for home health at this time. Patient states she has no further needs or concerns at this time. CM to follow for discharge planning needs that may arise. PCP: Fatimah Specialists: None Preferred Pharmacy: [facility] Prescription Benefit: Silver Script Living Will/HPOA: None, declined additional information LNOK: Friend, Lacy Jones Living Arrangements: Patient lives alone in 1 story house with 2 steps to enter home. Patient states she is independent Transportation: Self/Friend DME/HHC: Declined needs at this time. Disposition Plan: Patient to discharge home with support from friend and follow-up plans in place. Swathi JENSEN, RN, CM
--- NOTE | 2018-06-24 14:39 | PCM.DC.SUM ---
Discharge Date and Diagnosis Date of Admission: 06/22/18 Date of Discharge: 06/24/18 - Primary Discharge Diagnosis #1 acute colitis of the distal descending colon. #2 stable, chronic right adrenal mass. - Secondary Discharge Diagnosis Chronic Problems (Last Updated 04/24/18 @ 13:20 by Chesley Brunner) HTN (hypertension) (Chronic) Hospital Course and Treatment Imaging Results: Clinical Impression(s) from Imaging Studies Abdomen/Pelvis CT 06/22/18 07:28 IMPRESSION: 1. Thickening of the distal descending colon consistent with colitis extending to the to the region of the sigmoid diverticulosis. 2. No drainable abscess is seen. 3. Persistent cystic lesion in the region of the cervix unchanged since the prior exam. 4. Right adrenal mass unchanged since prior examination. Electronically Signed: Jed Hoff MD at 9:24 EDT Tel , Service support , Operations: None Procedures: None Summary of Care Provided: Patient seen and examined on the day of discharge and appeared to be stable to be discharged home. Her abdominal pain is improved but still there. She has been tolerating full liquid diet. Denies any more nausea vomiting. Denies fever chills. Her vital signs are stable. - Physical Exam General: Alert, Oriented x3, Cooperative, No apparent distress. HEENT: Atraumatic, PERRLA, EOMI. Neck: Supple, No JVD, Negative Carotid Bruits, Trachea Midline, Thyroid Normal. Lungs: Diminished breath sounds bilateral, otherwise clear, no rhonchi, No wheeze, No rales. Cardiovascular: Regular rate, Regular Rhythm, Normal S1, Normal S2, PMI Normal. Abdomen: Bowel Sounds Present, Soft, Non Tender, Non-Distended, No Hepato-splenomegaly. Extremities: No clubbing, No cyanosis, No edema Skin: No rashes, No breakdown Neurological: Neuro grossly intact Vital Signs are stable. Hospital course: This is a 58 years old female patient admitted because of abdominal pain she was found to have acute colitis of the distal descending colon on CT scan abdomen and pelvis. Her routine blood work was remarkable for leukocytosis, otherwise normal. She was treated with IV fluids, IV pain medications and IV antibiotics including IV Flagyl and ciprofloxacin. This acute colitis presumed to be due to infectious etiology likely viral. Patient did not have any diarrhea and no recent history of antibiotic use. Her LFT was normal as well as lipase. With IV antibiotic therapy, her vital cell count improved and symptoms improved as well. Patient tolerated full liquid diet. She continued to have mild right sided abdominal pain which is likely due to the acute colitis but improved. Patient discharged home in a stable medical condition, discharged on oral Flagyl and ciprofloxacin for 10 days of treatment, discharged on OxyIR as needed for pain, recommended to use soft light diet in the next few days and advance as tolerated, recommended follow-up with PCP in 1 week. - Physical Exam General: Alert, Oriented x3, Cooperative HEENT: Atraumatic, PERRLA, EOMI, Normocephalic Oral: Moist Mucosa, No Gingival or Mucosal Lesions/ Ulcerations Neck: Supple, No JVD, Negative Carotid Bruits, Trachea Midline, Thyroid Normal Size and Texture Lungs: Clear to auscultation, No rhonchi, No wheeze, No rales, Diminished Cardiovascular: Regular rate, Regular Rhythm, Normal S1, Normal S2, PMI Normal Abdomen: Bowel Sounds Present, Soft, Non Tender, Non-Distended, No Hepato-splenomegaly Extremities: No clubbing, No cyanosis, No edema Skin: No rashes, No breakdown Neurological: Neuro grossly intact Psych/Mental Status: Normal Affect, Appropriate Vital Signs Temp Pulse Resp BP Pulse Ox 98.3 F 70 18 155/66 H 97 06/24/18 07:47 06/24/18 07:47 06/24/18 09:50 06/24/18 05:26 06/24/18 09:50 Oxygen Flow Rate (L/min) 2 Oxygen Delivery Method Room Air Weight: 209 lb Body Mass Index (BMI) 35.9 Intake and Output for Last 24 Hours 06/22/18 06/23/18 06/24/18 23:59 23:59 23:59 Intake Total 650 / 650 3029 / 3029 1927 / 1927 Output Total 400 / 400 900 / 900 1000 / 1000 Balance 250 / 250 2129 / 2129 927 / 927 Laboratory Tests Past 24 Hrs 06/24/18 05:00 Sodium 144 Potassium 3.7 Chloride 110 H Carbon Dioxide 27.0 Anion Gap 7 BUN 5 L Creatinine 0.63 Estim Creat Clear Calc 82.00 Est GFR (MDRD) Af Amer 123 Est GFR (MDRD) Non-Af 102 BUN/Creatinine Ratio 7.9 L Glucose 101 Calcium 8.6 Discharge Activity: Return to Normal Activity, May not drive while taking narcotic pain medications. Weight Bearing Status: Full weight bearing Call your doctor if you observe: Fever of 101 or Higher, Shortness of breath, Dizziness, Fainting spells, Chest pain, Increased palpitations (irregular heartbeat), Uncontrolled pain Home Medications: Medications to take at Discharge Acetaminophen [Pain Relief] 500 mg PO Q6H PRN PRN 04/14/18 Lisinopril/Hydrochlorothiazide [Zestoretic 20-12.5 mg Tablet] 1 ea PO DAILY #30 tab 04/14/18 Omeprazole [Prilosec] 40 mg PO DAILY 04/24/18 Albuterol Inhaler [Ventolin Hfa] 2 puff INHALATION Q4H PRN PRN 05/14/18 Dicyclomine HCl [Bentyl] 20 mg PO TIDAC #20 cap 05/14/18 Hydroxyzine HCl 25 mg PO Q6H PRN 05/14/18 Simvastatin [Zocor] 40 mg PO QHS 06/22/18 traZODone [Desyrel] 50 mg PO QHS 06/22/18 Ciprofloxacin [Cipro] 500 mg PO BID #20 tablet 06/24/18 Metronidazole [Flagyl] 500 mg PO Q8H #30 tablet 06/24/18 Oxycodone [Oxyir] 5 mg PO Q8H PRN PRN 3 Days #10 tab 06/24/18 Following Prescrptions Were Given to Patient: Oxycodone [Oxyir] 5 mg PO Q8H PRN PRN 3 Days #10 tab PRN Reason: Abdominal pain Metronidazole [Flagyl] 500 mg PO Q8H #30 tablet Ciprofloxacin [Cipro] 500 mg PO BID #20 tablet Primary Care Physician: Gloria Sheridan MD [Primary Care Provider] - Please follow up with your Primary Care Physician in: 1 week. Medical Necessity - Tobacco Use Smoking Status: Current every day smoker Meaningful Use Info Meaningful Use Diagnoses (Choose all that apply): None applicable Code Visit Inpatient E&M: 91920 [facility] Hosp
== END 2018-06-24 11:54 | disposition home or self-care (01) | DRG 392 ==
LOC: ED 07:45 → MS3 10:16
PROVIDERS: Admitting Provider Family Medicine; Emergency Provider Emergency Medicine; Family Provider Internal Medicine; PCP Internal Medicine; Visit Provider Hospitalist
DX: A08.4 Viral intestinal infection, unspecified (principal); K21.9 Gastro-esophageal reflux disease without esophagitis; E78.5 Hyperlipidemia, unspecified; I10 Essential (primary) hypertension; E27.9 Disorder of adrenal gland, unspecified; Z23 Encounter for immunization; Z90.722 Acquired absence of ovaries, bilateral; F17.200 Nicotine dependence, unspecified, uncomplicated
CPT/HCPCS: 36415; 74177; 80048; 80053; 83605; 83690; 85025; 85610; 85730; 94640; 97162; 97166; 99282; 99406; J7030; Q9967; 90686; A4216; J0744; J2405

== ENCOUNTER 2018-11-09 00:25 | Emergency (ER) | payer MEDICARE, SELFPAY ==
[2018-11-09 00:26] VITALS: BP 191/96; PULSE 84; RESP 16; TEMP 36.8; O2SAT 96; BMI 37.5
--- NOTE | 2018-11-09 01:29 | CT_ITS ---
STUDY: CT ABDOMEN AND PELVIS WITH CONTRAST REASON FOR EXAM: Female, 58 years old. Left lower quadrant abdominal pain and rectal bleeding. Patient has history of diverticulitis. RADIATION DOSAGE (If Supplied By Facility): CTDIvol = ( 18.46 ) mGy, DLP = ( 1207.61 ) mGycm TECHNIQUE: Transaxial images were obtained from the dome of the diaphragm to the symphysis pubis without oral contrast. Isovue 300 100 ml IV was administered. Sagittal and coronal images were reconstructed. Individualized dose optimization techniques were used for this CT. COMPARISON: CT of the abdomen and pelvis dated June 22, 2018. FINDINGS: The visualized lung bases are unremarkable. The visualized portions of the heart are within normal limits. Normal liver. The gallbladder is contracted. Normal spleen. Normal pancreas. There is a right adrenal mass measuring approximately 5.1 x 3.6 x 4 cm in size. The left adrenal gland has a normal appearance. Right kidney is smaller in size compared to left kidney suggesting possible sequela of chronic renal insufficiency. There is a nonobstructing calculus in the lower pole of the left kidney measuring about 2 mm in size. There is no evidence for hydronephrosis, hydroureter or radiopaque ureteral calculus. Appears to be thickening of the drew of the gastric fundus which measure up to 2.6 cm. There is no evidence for dilated bowel, ascites or pneumoperitoneum. There is abnormal thickening of the drew of the proximal and mid descending colon. The drew measure up to 12.5 mm in thickness. This may be the result of a colitis. There is also abnormal thickening of the distal descending colon and sigmoid colon. The sigmoid colon appears to have multiple diverticula as well. This may also be related to colitis. The appendix is visualized and appears normal. The down the aorta has extensive atherosclerotic calcification in addition to noncalcified thrombus. 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 This appearance is similar to the previous study. Normal inferior vena cava. Normal retroperitoneum. Normal urinary bladder. Of the uterus has a generally normal appearance. There is a cystic process located posterior to the cervix and measures approximately 4.9 x 2.5 x 3.5 cm in size. There is a large periumbilical ventral hernia containing fat. There are diffuse degenerative changes of the visualized lumbar spine. CT/Abdomen/Pelvis W IV Cont ONLY IMPRESSION: 1. Abnormal thickening of the drew of the descending colon and sigmoid colon suggesting sequela of an acute infectious or inflammatory colitis. 2. 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 3. Nonspecific cystic lesion arising apparently from the posterior cervix. 4. Colonic diverticulosis. Electronically Signed: Janel Urias MD at 3:39 EDT , Service support ,
--- NOTE | 2018-11-09 01:31 | ED.VIS.GEN ---
History of Present Illness Chief Complaint: GI Bleed Informant: Patient Onset: Today Context: Gradual Onset Timing: Continuous Quality: BRBPR Location: rectal Current Severity: Moderate Maximum Severity: Moderate Associated Symptoms: diffuse abd pain, bloating, nausea in waves, chills Narrative: Patient has a history of diverticulosis, feels like she is having a bout of diverticulitis with significant bright red blood per rectum today. She is having diffuse abdominal pain with it. Waves of nausea, no vomiting. [place] like she was having fevers but has no thermometer. No history of bowel surgeries. Has had 5 bloody bowel movements this evening with clots. Denies any preceding melena. No lightheadedness or near syncope or chest pain. She is on no anticoagulants. Prior similar symptoms: Yes - Past Medical History (1) Diverticulosis Status: Chronic (2) Colitis Status: Chronic (3) GERD (gastroesophageal reflux disease) Status: Chronic (4) HLD (hyperlipidemia) Status: Chronic (5) Insomnia Status: Chronic (6) HTN (hypertension) Status: Chronic Past Medical History - Allergies and Home Meds Allergies/Adverse Reactions: Allergies Latex, Natural Rubber Allergy (Verified 11/09/18 00:27) Rash Penicillins Allergy (Verified 11/09/18 00:27) Rash Primary Care Physician: Gloria Sheridan MD [Primary Care Provider] - Surgical History: hysterectomy Lives: Alone Smoking Status: Current every day smoker Drugs: Marijuana - Family History Maternal Family History: Reports: Diabetes, Heart Disease Review of Systems General: Reports: Chills, Fever, Malaise, Subjective. Denies: Sweats Eyes: Denies: Visual changes - bilaterally, Diplopia ENT: Denies: Rhinorrhea, Sore throat Cardiovascular: Denies: Chest pain, Palpitations Respiratory: Denies: Dyspnea, Cough, Dyspnea on exertion Gastrointestinal: Reports: Abdominal pain, Nausea, Hematochezia. Denies: Vomiting, Diarrhea, Melena Genitourinary: Denies: Dysuria, Hematuria, Frequency Musculoskeletal: Denies: Back pain, Extremity Pain Skin: Denies: Rash, Abscess, Wounds Neurological: Denies: Headache, Weakness, Numbness Physical Exam Vital Signs/Narrative: Vital Signs Temp Pulse Resp BP Pulse Ox 11/09/18 00:26 98.2 F 84 16 191/96 H 96 Inital Vital Signs reviewed: Yes General: Well nourished, Well developed, No Acute Distress Head: Normocephalic, Atraumatic Eyes: Perrl, EOMI ENT: Moist mucous membranes, No rhinorrhea Neck: Supple, Nontender Cardiovascular: Regular rate, Regular rhythm, No murmurs Respiratory: No distress, CTA bilaterally, Chest nontender Abdomen: Soft, Nondistended, Normal bowel sounds, Tender - Left lower quadrant, left mid abdomen left upper quadrant. Otherwise, benign abdomen and nontender.. Negative for: Guarding, Rebound tenderness Rectal: Deferred Back: Nontender, Normal Inspection. Negative for: CVA tenderness Extremities: Nontender, No edema Skin: Normal color, No rash, No Trauma Neurological: Alert, Oriented x3, Cranial nerves II-XII grossly intact, Normal Strength, Normal Sensation Psychological: Normal affect, Normal Mood Diagnostic/Tx/Re-eval Impressions Abdomen/Pelvis CT 11/09/18 01:29 IMPRESSION: 1. Abnormal thickening of the drew of the descending colon and sigmoid colon suggesting sequela of an acute infectious or inflammatory colitis. 2. 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 3. Nonspecific cystic lesion arising apparently from the posterior cervix. 4. Colonic diverticulosis. Electronically Signed: Janel Urias MD at 3:39 EDT , Service support , 11/09/18 01:29 Abdomen/Pelvis W IV Cont ONLY [CT] Stat Laboratory Results 11/09/18 11/09/18 11/09/18 01:20 01:20 01:20 WBC 15.6 H RBC 4.93 Hgb 15.8 H Hct 46.2 MCV 93.7 MCH 32.0 MCHC 34.2 RDW 13.3 RDW Differential 44.3 H Plt Count 231 MPV 10.4 Immature Gran % (Auto) 0.300 Neut % (Auto) 84.8 H Lymph % (Auto) 11.2 L [place] % (Auto) 3.6 Eos % (Auto) 0.0 Baso % (Auto) 0.1 Absolute Neuts (auto) 13.3 H Absolute Lymphs (auto) 1.75 Total Counted Not Reportable Sodium 137 Potassium 4.0 Chloride 105 Carbon Dioxide 24.0 Anion Gap 8 BUN 27 H Creatinine 1.07 H Estim Creat Clear Calc 48.28 Est GFR (MDRD) Af Amer 67 Est GFR (MDRD) Non-Af 55 L BUN/Creatinine Ratio 25.2 H Glucose 140 H Calcium 9.2 Total Bilirubin 0.40 AST 18 ALT 22 Alkaline Phosphatase 86 Total Protein 7.9 Albumin 3.7 Globulin 4.2 Albumin/Globulin Ratio 0.9 Urine Color Urine Clarity Urine pH Ur Specific [place] Urine Protein Urine Glucose (UA) Urine Ketones Urine Occult Blood Urine Nitrite Urine Bilirubin Urine Urobilinogen Ur Leukocyte Esterase Urine RBC Urine WBC Ur Squamous Epith Cells Urine Bacteria Urine Mucus Blood Type A NEGATIVE Antibody Screen NEGATIVE 11/09/18 02:35 WBC RBC Hgb Hct MCV MCH MCHC RDW RDW Differential Plt Count MPV Immature Gran % (Auto) Neut % (Auto) Lymph % (Auto) [place] % (Auto) Eos % (Auto) Baso % (Auto) Absolute Neuts (auto) Absolute Lymphs (auto) Total Counted Sodium Potassium Chloride Carbon Dioxide Anion Gap BUN Creatinine Estim Creat Clear Calc Est GFR (MDRD) Af Amer Est GFR (MDRD) Non-Af BUN/Creatinine Ratio Glucose Calcium Total Bilirubin AST ALT Alkaline Phosphatase Total Protein Albumin Globulin Albumin/Globulin Ratio Urine Color Straw Urine Clarity Clear Urine pH 6.0 Ur Specific [place] 1.010 Urine Protein Negative Urine Glucose (UA) Normal Urine Ketones Negative Urine Occult Blood Negative Urine Nitrite Negative Urine Bilirubin Negative Urine Urobilinogen Normal Ur Leukocyte Esterase Negative Urine RBC 0 SEEN Urine WBC 0 SEEN Ur Squamous Epith Cells 0-5 SEEN Urine Bacteria 0 SEEN Urine Mucus 0 SEEN Blood Type Antibody Screen - Medical Decision Making Labs show a leukocytosis in the 15 range, mild prerenal azotemia, and a high hemoglobin almost 16, certainly not anemic. She was monitored for 4-1/2 hours total in the ER prior to discharge, and had no further episodes of rectal bleeding. She was treated with IV fluids, Zofran, oral Bentyl since we were out of parenteral, and she felt much better states that her abdominal pain was gone. CT shows colitis, also presence of diverticulosis and it was not designated as diverticulitis. Since her hemoglobin is so stable and she has apparently stopped bleeding, she wants to go home and I think that is reasonable. Infectious and inflammatory etiologies of her colitis are in the differential. She has a leukocytosis, I think empiric antibiotics are reasonable. She was started on Cipro and Flagyl here and given prescriptions for them. She states she had a colonoscopy 3 years ago at [facility], she states that other than diverticular disease they told her everything looked good and to come back in 10 years. I will refer her to our surgeons, who performs colonoscopies, for further evaluation. If she gets worse she is encouraged to return to the ER and she is comfortable with that overall plan. ED Disposition - Plan for ED Patient: Disposition: Home or Assisted Living Diagnosis: Acute hemorrhagic colitis Instructions: ED Hematochezia Stable, ED Diverticulosis Prescriptions: Dicyclomine HCl [Bentyl] 20 mg PO Q6H PRN PRN #20 capsule PRN Reason: abdominal cramping Ciprofloxacin [Cipro] 500 mg PO BID #20 tablet Metronidazole [Flagyl] 500 mg PO BID #20 tablet Referrals: Gloria Sheridan MD [Primary Care Provider] - Nicki Avila MD [STAFF PHYSICIAN] - 5-7 Days (call for appt)
[2018-11-09 01:40] VITALS: RESP 17
[2018-11-09] MEDS: 0.9% Normal Saline 1,000 ML 1000 ML IV (01:50)
[2018-11-09] MEDS: Ondansetron 4 MG/2 ML Vial IV (01:50)
[2018-11-09 01:52] LABS: Absolute Lymphocyte Count 1.75 X10^3/ul (0.83-4.51); Absolute Neutrophil Count 13.3 X10^3/uL (2.0-7.7); Basophil# 0.02 X10^3/uL; Basophil% 0.1 % (0-1); Hematocrit 46.2 % (37-47); Hemoglobin 15.8 g/dl (12.0-15.0); Lymphocyte # 1.75 X10^3/ul (4.0); Lymphocyte % 11.2 % (19-41); Mean Corp Hgb Conc 34.2 g/gl (32-36); Mean Corpuscular Volume 93.7 fL (81-99); Mean Platelet Vol. 10.4 fl (6.2-12.0); Monocyte# 0.57 X10^3/uL; Monocyte% 3.6 % (0-10); Neutrophil # 13.26 X10^3/uL (2.7-7.7); Neutrophil % 84.8 % (47-70); Platelet Count 231 K/mm3 (150-450); RBC Distribution Width CV 13.3 % (11.6-14.6); RBC Distribution Width SD 44.3 fl (35.1-43.9); Red Blood Count 4.93 M/mm3 (4.2-5.4); White Blood Count 15.6 K/mm3 (4.4-11.0)
[2018-11-09 01:57] LABS: POSITIVE COUNT NO; POSITIVE DIFFERENTIAL NO; POSITIVE MORPHOLOGY NO
[2018-11-09 02:02] LABS: ALB/GLOB Ratio 0.9 RATIO (0.9-2.4); AST(SGOT) 18 U/L (15-37); Alanine Aminotransfer ALT/SGPT 22 U/L (13-56); Albumin, Serum 3.7 g/dL (3.2-5.0); Alkaline Phosphatase 86 U/L (45-117); Anion Gap 8 (5-15); BUN 27 mg/dL (7-18); BUN/Creat Ratio 25.2 RATIO (10-20); Calcium,Total 9.2 mg/dL (8.5-10.1); Chloride 105 mmol/L (98-107); Creatinine, Serum 1.07 mg/dL (0.55-1.02); EST Glomerular Filtration Rate 55 mL/min (>60); Est Glom Filt Rate - Afr Amer 67 mL/min (>60); Estimated Creatinine Clearance 48.28 ml/min; Globulin 4.2 g/dL (2.2-4.2); Glucose 140 mg/dL (74-106); Protein, Total 7.9 g/dL (6.4-8.2); Sodium Level 137 mmol/L (136-145)
[2018-11-09 02:44] LABS: Bacteria 0 SEEN /hpf (None Seen); Color, Urine Straw (Yellow); Glucose, Dipstick Normal (Normal); Ketone-Dipstick Negative (Negative); Leukocyte Esterase-Dipstick Negative /ul (Negative); Mucous, Urine 0 SEEN /hpf (<or=2+); Nitrite-Dipstick Negative (Negative); Occult Blood-Urine Negative /ul (Negative); Protein-Dipstick Negative (Negative); Red Blood Cells-Urine 0 SEEN /hpf (0-5); Urine Bilirubin Dipstick Negative (Negative); Urine Clarity Clear (Clear); Urine Urobilinogen Normal (Normal); White Blood Cells 0 SEEN /hpf (0-5)
[2018-11-09] MEDS: Dicyclomine 10 MG Capsule 20 MG PO (02:54)
[2018-11-09 03:05] LABS: Squamous Epithelial Cells - UA 0-5 SEEN /hpf (5-10)
[2018-11-09] MEDS: metroNIDAZOLE 500 MG Tablet PO (05:00)
[2018-11-09] MEDS: Ciprofloxacin 500 MG Tablet PO (05:00)
[2018-11-09 05:07] VITALS: BP 163/81; PULSE 84; RESP 16; O2SAT 95
== END 2018-11-09 05:12 | disposition home or self-care (01) ==
PROVIDERS: Emergency Provider Emergency Medicine; Family Provider Internal Medicine; PCP Internal Medicine
DX: K52.9 Noninfective gastroenteritis and colitis, unspecified (principal); K57.30 Diverticulosis of large intestine without perforation or abscess without bleeding; K21.9 Gastro-esophageal reflux disease without esophagitis; D72.829 Elevated white blood cell count, unspecified; I10 Essential (primary) hypertension; E78.5 Hyperlipidemia, unspecified; F12.90 Cannabis use, unspecified, uncomplicated; F17.200 Nicotine dependence, unspecified, uncomplicated; Z79.899 Other long term (current) drug therapy
CPT/HCPCS: 74177; 80053; 81001; 85025; 86850; 86900; 96361; 96374; 99284; J7030; Q9967; A4216; J2405

== ENCOUNTER 2019-02-25 02:20 | Inpatient (IN) | payer MEDICARE, SELFPAY ==
[2019-02-25] VITALS (9 sets, daily range): BP systolic 96–139; BP diastolic 45–98; PULSE 61–88; RESP 16–22; TEMP 36.4–37.2; O2SAT 91–96; BMI 37.9; BMI 37.0
--- NOTE | 2019-02-25 02:41 | CT_ITS ---
STUDY: CT ABDOMEN AND PELVIS WITH CONTRAST REASON FOR EXAM: Female, 59 years old. Abdominal pain. Elevated WBC. History of colitis RADIATION DOSAGE (If Supplied By Facility): CTDIvol = ( 18.. 74 ) mGy, DLP = ( 1217.75 ) mGycm TECHNIQUE: Transaxial images were obtained. from the dome of the diaphragm to the symphysis pubis without oral contrast. 100ML IV Isovue 300 was administered. Sagittal and coronal images were reconstructed. Individualized dose optimization techniques were used for this CT. COMPARISON: None. The lung bases are clear. The liver is normal. No dilated intrahepatic biliary radicles. The gallbladder is normal with no calcifications within it. There is no pericholecystic fluid collection or streakiness The spleen is normal. The pancreas is normal. A 4.2 cm benign looking right adrenal mass Hounsfield units ranging from 7-30. The kidneys are normal with no masses, calculi or hydronephrosis The stomach is normal. There is no bowel distention and no acute appendicitis or acute diverticulitis but there is chronic diverticular disease in the sigmoid colon with a well-circumscribed 6.5 x 4.0 x 5.1 cm cystic mass with a small speck of air in its superior aspect. An abscess pocket is suspected. The collection has increased in size from about 3.2 cm in its widest diameter since the last examination of November 09, 2018. No constricting lesions are seen in large bowel. A small umbilical hernia. There is no ascites or any free intraperitoneal air. No indication of epiploic appendagitis Very heavy calcification of the distal aorta and iliac arteries There is no retrocrural, retroperitoneal or mesenteric adenopathy. The bones and joints are normal. The urinary bladder is normal. The uterus is normal. The previously noted 3.2 cm cystic mass posterior to the cervix has increased in size to 5.1 cm .. There is no inguinal or pelvic adenopathy. There is no inguinal hernia. . CT/Abdomen/Pelvis W IV Cont ONLY IMPRESSION: There is chronic diverticular disease involving the cerebral with a well-circumscribed 6.5 x 4.0 x 5.1 cm cystic mass with a speck of air within its superior end. An abscess pocket is suspected. A benign lytic and right adrenal mass. A small umbilical hernia. N.B. : The above information has been verbally conveyed by Gianluca Garsia MD to Mal Poe MD, on 02/25/2019 05:51:51 (ET). Electronically Signed: Gianluca Garsia MD at 5:01 EDT Tel , Service support ,
[2019-02-25] MEDS: proMETHazine 25 MG/ML Syringe 12.5 MG IV (03:08)
[2019-02-25] MEDS: fentaNYL 100 MCG/2 ML Ampul 50 MCG IV ×2 (03:09→05:49)
[2019-02-25] MEDS: 0.9% Normal Saline 1,000 ML 1000 ML IV (03:09)
[2019-02-25 03:35] LABS: Absolute Lymphocyte Count 2.28 X10^3/ul (0.83-4.51); Absolute Neutrophil Count 13.9 X10^3/uL (2.0-7.7); Basophil# 0.04 X10^3/uL; Basophil% 0.2 % (0-1); Eosinophil# 0.17 X10^3/uL; Hematocrit 47.4 % (37-47); Hemoglobin 16.2 g/dl (12.0-15.0); Lymphocyte # 2.28 X10^3/ul (4.0); Lymphocyte % 13.3 % (19-41); Mean Corp Hgb Conc 34.2 g/gl (32-36); Mean Corpuscular Hgb 31.3 pg (27.0-32.0); Mean Corpuscular Volume 91.7 fL (81-99); Mean Platelet Vol. 9.9 fl (6.2-12.0); Monocyte# 0.66 X10^3/uL; Monocyte% 3.9 % (0-10); Neutrophil # 13.87 X10^3/uL (2.7-7.7); Neutrophil % 81.1 % (47-70); Platelet Count 228 K/mm3 (150-450); RBC Distribution Width CV 13.5 % (11.6-14.6); RBC Distribution Width SD 44.6 fl (35.1-43.9); Red Blood Count 5.17 M/mm3 (4.2-5.4); White Blood Count 17.1 K/mm3 (4.4-11.0)
[2019-02-25 03:39] LABS: POSITIVE COUNT NO; POSITIVE DIFFERENTIAL NO; POSITIVE MORPHOLOGY NO
[2019-02-25 03:41] LABS: ALB/GLOB Ratio 0.8 RATIO (0.9-2.4); AST(SGOT) 14 U/L (15-37); Alanine Aminotransfer ALT/SGPT 19 U/L (13-56); Albumin, Serum 3.3 g/dL (3.2-5.0); Alkaline Phosphatase 90 U/L (45-117); Anion Gap 9 (5-15); BUN 30 mg/dL (7-18); BUN/Creat Ratio 22.1 RATIO (10-20); Chloride 103 mmol/L (98-107); Creatinine, Serum 1.36 mg/dL (0.55-1.02); EST Glomerular Filtration Rate 42 mL/min (>60); Est Glom Filt Rate - Afr Amer 51 mL/min (>60); Estimated Creatinine Clearance 37.51 ml/min; Globulin 4.1 g/dL (2.2-4.2); Glucose 142 mg/dL (74-106); Lipase 95 U/L (73-393); Potassium 3.2 mmol/L (3.5-5.1); Protein, Total 7.4 g/dL (6.4-8.2); Sodium Level 138 mmol/L (136-145)
[2019-02-25 04:16] LABS: Bacteria 0 SEEN /hpf (None Seen); Mucous, Urine 0 SEEN /hpf (<or=2+); Red Blood Cells-Urine 0 SEEN /hpf (0-5); Squamous Epithelial Cells - UA 0 SEEN /hpf (5-10); White Blood Cells 0 SEEN /hpf (0-5)
[2019-02-25 04:26] LABS: Color, Urine Yellow (Yellow); Glucose, Dipstick Normal (Normal); Ketone-Dipstick Negative (Negative); Leukocyte Esterase-Dipstick Negative /ul (Negative); Nitrite-Dipstick Negative (Negative); Occult Blood-Urine Negative /ul (Negative); Protein-Dipstick Negative (Negative); Urine Bilirubin Dipstick Negative (Negative); Urine Clarity Clear (Clear); Urine Urobilinogen Normal (Normal)
[2019-02-25] MEDS: Ciprofloxacin 400 MG/200 ML BAG 200 MG IV ×2 (05:27→16:47)
--- NOTE | 2019-02-25 05:33 | PCM.HP.STD ---
Problem List (1) HTN (hypertension) Status: Chronic (2) Colitis Status: Chronic History of Present Illness Date of Admission: 02/25/19 Chief Complaint: abdominal pain The patient is a 59 year old F with a significant history of hypertension; asthma; tobacco abuse who presented to the ED with 3 to 4 days of excruciating left-sided abdominal pain that radiated to her lower abdomen and to her back. Associated with her symptoms is nausea. Because at home patient felt that there was gas in her abdomen as she tried enema. At the emergency department patient reported having multiple loose stools with blood in it. Past Medical History Past Medical History (Chronic Problems): Chronic Problems (Last Reviewed 02/25/19 @ 06:26 by Manolo Oakley MD) HTN (hypertension) (Chronic) Colitis (Chronic) GERD (gastroesophageal reflux disease) (Chronic) HLD (hyperlipidemia) (Chronic) Insomnia (Chronic) Diverticulosis (Chronic) Medical History: Medical History (Last Reviewed 02/25/19 @ 06:26 by Manolo Oakley MD) Anxiety F41.9 Depression F32.9 History of high cholesterol Z86.39 PTSD (post-traumatic stress disorder) F43.10 Allergies Latex, Natural Rubber Allergy (Verified 02/25/19 02:21) Rash Penicillins Allergy (Verified 02/25/19 02:21) Rash Home Medications: Ambulatory Orders Medication Instructions Recorded Lisinopril/Hydrochlorothiazide 1 ea PO DAILY #30 tab 04/14/18 [Zestoretic 20-12.5 mg Tablet] Omeprazole [Prilosec] 40 mg PO DAILY 04/24/18 Albuterol Inhaler [Ventolin Hfa] 2 puff INHALATION Q4H PRN PRN 05/14/18 Simvastatin [Zocor] 40 mg PO QHS 06/22/18 Dicyclomine HCl [Bentyl] 20 mg PO Q6H PRN PRN #20 capsule 11/09/18 Docusate Sodium [Colace] 1 cap PO BID 02/25/19 Surgical History: Surgical History (Last Reviewed 02/25/19 @ 06:26 by Manolo Oakley MD) H/O tubal ligation Z98.51 History of section, classical Z98.891 Surgical History: hysterectomy Lives: Roommate Smoking Status: Current every day smoker Tobacco Use: Cigarettes - *Family History Maternal History Items: Diabetes, Heart Disease Review of Systems Constitutional: Denies: Chills, Fever, Weight Change HEENT: Denies: Head Aches, Sinus Congestion, Sinus Drainage Cardiovascular: Denies: Chest Pain, Palpitations Respiratory: Denies: Cough, Shortness of breath at rest, Sputum production Gastrointestinal: Reports: Abdominal Pain, Nausea. Denies: Vomiting Genitourinary: Denies: Dysuria Musculoskeletal: Denies: Joint Pain, Joint Tenderness Skin: Denies: Rash, Wounds Neurological: Denies: Numbness, Tingling, Focal weakness Psychiatric: Denies: Anxiety, Depression, Homicidal Ideations, Suicidal Ideations Hematologic/ Lymphatic: Denies: Easy Bruising, Easy Bleeding VTE Information - Inpt Only VTE Present on Admission: No VTE Mechan Device Prophylaxis: SCD's VTE Pharm Prophylaxis ordered?: No - Physical Exam General: Alert, Oriented x3, Cooperative HEENT: Atraumatic, PERRLA, EOMI, Normocephalic Neck: Supple, No JVD, Negative Carotid Bruits Lungs: Clear to auscultation, Normal air movement Cardiovascular: Regular rate, No murmurs Abdomen: Bowel Sounds Present, Soft, Tender Extremities: No edema, Capillary Refill Less than 3 Seconds Skin: No rashes, No breakdown Musculoskeletal: No Tenderness to Palpation of Joints or Extremities Neurological: Cranial nerves II-XII grossly intact Psych/Mental Status: Normal Affect, Appropriate Vital Signs Temp Pulse Resp BP Pulse Ox 97.6 F L 69 17 96/45 L 96 02/25/19 02:21 02/25/19 02:21 02/25/19 04:47 02/25/19 02:21 02/25/19 02:21 Oxygen Delivery Method Room Air Weight: 100.2 kg Body Mass Index (BMI) 37.9 Laboratory Tests Past 24 Hrs 02/25/19 02/25/19 02/25/19 03:15 03:15 04:10 WBC 17.1 H RBC 5.17 Hgb 16.2 H Hct 47.4 H MCV 91.7 MCH 31.3 MCHC 34.2 RDW 13.5 RDW Differential 44.6 H Plt Count 228 MPV 9.9 Immature Gran % (Auto) 0.500 Neut % (Auto) 81.1 H Lymph % (Auto) 13.3 L [place] % (Auto) 3.9 Eos % (Auto) 1.0 Baso % (Auto) 0.2 Absolute Neuts (auto) 13.9 H Absolute Lymphs (auto) 2.28 Total Counted Not Reportable Sodium 138 Potassium 3.2 L Chloride 103 Carbon Dioxide 26.0 Anion Gap 9 BUN 30 H Creatinine 1.36 H Estim Creat Clear Calc 37.51 Est GFR (MDRD) Af Amer 51 L Est GFR (MDRD) Non-Af 42 L BUN/Creatinine Ratio 22.1 H Glucose 142 H Calcium 9.0 Total Bilirubin 0.50 AST 14 L ALT 19 Alkaline Phosphatase 90 Total Protein 7.4 Albumin 3.3 Globulin 4.1 Albumin/Globulin Ratio 0.8 L Lipase 95 Urine Color Yellow Urine Clarity Clear Urine pH 6.0 Ur Specific [place] 1.010 Urine Protein Negative Urine Glucose (UA) Normal Urine Ketones Negative Urine Occult Blood Negative Urine Nitrite Negative Urine Bilirubin Negative Urine Urobilinogen Normal Ur Leukocyte Esterase Negative Urine RBC 0 SEEN Urine WBC 0 SEEN Ur Squamous Epith Cells 0 SEEN Urine Bacteria 0 SEEN Urine Mucus 0 SEEN Assessment/Plan The patient is a 59 year old F with a significant history of hypertension; asthma; tobacco abuse who presented to the ED with 3 to 4 days of excruciating left-sided abdominal pain that radiated to her lower abdomen and to her back and found to have leukocytosis and radiographic evidence of diverticular abscess. Diverticulitis with probable diverticular abscess CT of abdomen and pelvis showed chronic diverticular disease and probable abscess. Radiograph was independently reviewed. I agree with radiologist interpretation. Supportive treatment with lactated Ringer's with potassium; IV morphine as needed and IV antiemetics with Zofran. Interventional radiologist consult to see whether abscess can be drained percutaneously. General surgery consult. We will keep n.p.o. PT/INR ordered. Hypertension On presentation her blood pressure was low. No hypertensive medication at this time. Trend blood pressures. ELIAS On presentation her creatinine was 1.36 Review of order echo showed a creatinine baseline of less than 1. BUN over creatinine more than 20. Likely prerenal secondary to hypovolemia from diarrhea Gentle IV hydration Trend BMP Avoid nephrotoxic's. Adrenal mass. Patient reported history of this. Patient to follow outpatient. Tobacco abuse Counselled. Asthma Prn albuterol continued. DVT prophylaxis Because of bloody diarrhea no chemical prophylaxis at this time. SCD ordered. Code Visit Inpatient E&M: 53242 Init Hosp L3
[2019-02-25] MEDS: LORazepam 2 MG/ML Syringe 0.5 MG IV (05:48)
[2019-02-25] MEDS: metroNIDAZOLE 500 MG/100 ML BAG 100 MG IV ×3 (06:26→21:51)
[2019-02-25 07:23] LABS: International Normalized Ratio 1.1; Prothrombin Time (Protime)PT. 13.5 SECONDS (11.7-14.9)
--- NOTE | 2019-02-25 07:36 | ED.VISSUMM ---
- ER Visit Summary Date of Service: 02/25/19 Chief Complaint: Abdominal pain History of Present Illness: The patient is a 59 F arriving by EMS with severe pain the lower abdomen into her back for the past 2 days. She states she had some discomfort about 2 days prior to this. However is gotten gradually worse. She has a history of diverticulitis and colitis. She is seeing Dr. Waldron in the past. Surgical history in the abdomen included by lateral tubal ligation, oophorectomy and hernia repair. She denies any fevers. She states that she has been constipated. Physical Examination: Afebrile vital signs stable Gen: Well-nourished well-developed she does moaning loudly but can stop to allow EMS to speak to nursing Head: Normocephalic atraumatic Eyes: Perrl EOMI ENT: TMs clear no rhinorrhea moist mucous membranes Neck: Supple no lymphadenopathy no JVD nontender CVS: Regular rate rhythm no murmurs normal S1-S2 Respiratory: No distress clear to auscultation bilaterally chest nontender Abdomen: Soft tender to palpation in the suprapubic left lower quadrant with guarding nondistended normal bowel sounds no masses Back: Nontender Extremity: Nontender no edema Skin: Normal color no rash Neuro: alert orientated ?3 CN II-XII intact normal strength sensation Psych: Normal affect normal mood Test Results: White count elevated 17.1. Creatinine 1.36 BUN of 30 urinalysis normal liver lipase normal. CT the pelvis demonstrates a abscess near a significantly diseased colon with diverticulosis. Emergency Department Course and Treatment: I reviewed the patient's prior CT of October and I am concerned that this abscess has been growing since that time. Now this abscess is air in it. I think it is most likely diverticular in nature. Per the radiologist it it would be amendable to CT-guided drainage. Patient received fentanyl and Zofran. Gave her IV fluids Cipro and Flagyl and her plan is admission. The hospitalist and Dr. Alegre were contacted. Impression: 1. Pelvic abscess 2. Acute kidney injury This note was generated with [employer] software. It may contain incorrect words, spelling, and punctuation that were not noted in review of the chart prior to signing ED Disposition - Plan for ED Patient: Disposition: Home or Assisted Living
--- NOTE | 2019-02-25 09:20 | RAD_ITS ---
STUDY: X-RAY CHEST REASON FOR EXAM: Female, 59 years old. Shortness of breath, cough and wheezing. TECHNIQUE: AP and lateral views of the chest. COMPARISON: None. FINDINGS: Mild elevation of the right hemidiaphragm with mild degree of increased linear markings at the right lung base suggestive of atelectasis. There is no demonstrated pleural abnormality. Normal size heart. Normal mediastinum and mackenzie. Normal visualized pulmonary arteries. Normal visualized aortic arch and descending thoracic aorta. Normal visualized thoracic spine. Normal visualized ribs, clavicles, and shoulders. Small hiatal hernia. RAD/Chest PA and Lateral IMPRESSION: Findings suggest a mild degree of right basilar atelectasis and a small hiatal hernia. Electronically Signed: Richard Ndiaye, at 15:18 EDT , Service support ,
--- NOTE | 2019-02-25 09:26 | US_ITS ---
STUDY: ULTRASOUND OF THE FEMALE PELVIS - COMPLETE REASON FOR EXAM: Female, 59 years old. Possible pelvic abscess. LMP: The patient is postmenopausal. TECHNIQUE: Transvaginal TECHNICAL QUALITY: Limited. COMPARISON: Comparison is made with prior CT scan of the abdomen and pelvis done earlier today. FINDINGS: The uterus is anteverted and is in a midline position. The uterus measures 5.1 cm x 3.9 cm x 3.0 cm. Normal uterine cervix. The endometrium measures 3.3 mm in thickness, and is hyperechoic. There is no demonstrated endometrial mass. There is no demonstrated myometrial mass. I.U.D. - The patient does not have an I.U.D. The right ovary is non-visualized. The left ovary is non-visualized. Posterior to the cervix in the cul-de-sac, there is a 4.9 cm x 4.7 cm x 3.7 cm complex cystic collection. This may represent focal abscess collection or blood. US/Transvaginal Non- IMPRESSION: 4.9 cm x 4.7 cm x 3.3 cm complex fluid collection in the posterior cul-de-sac. This may represent either hemorrhagic collection or abscess collection. Electronically Signed: Richard Ndiaye, at 11:48 EDT , Service support ,
[2019-02-25] MEDS: HYDROmorphone 0.5 MG/0.5 ML SYRINGE IV (10:03)
--- NOTE | 2019-02-25 10:06 | PN_ITS ---
Subjective: Severe abdominal pain, suprpubic, and LLQ most prominantly, however points all over when asked where pain is. Severe abdominal cramping. Continues to have urge to move bowels, sits and has small amounts of red blood with mucus. She has had subjective chills this AM. She is wheezy but denies SOB. She does have a hx of asthma. She could not make it through the whole interview as she had to run to the bathroom. She states that it feels like my uterus is being torn in half and it feels like labor. - Physical Exam General: Alert, Oriented x3, Cooperative, - - groaning constantly holding abdomen, in clear discomfort HEENT: Atraumatic, PERRLA, EOMI, Normocephalic Neck: Supple, No JVD, Negative Carotid Bruits Lungs: Normal air movement, Wheezes Cardiovascular: Regular rate, No murmurs Abdomen: Hypoactive Bowel Sounds, Obese, Guarding, Tender, - - referred pain to LLQ when RLQ palpitated. Extremities: No edema, Capillary Refill Less than 3 Seconds Skin: No rashes, No breakdown Musculoskeletal: No Tenderness to Palpation of Joints or Extremities Neurological: Cranial nerves II-XII grossly intact Psych/Mental Status: Normal Affect, Appropriate Vital Signs Temp Pulse Resp BP Pulse Ox 98.0 F 63 16 131/45 H 93 02/25/19 09:08 02/25/19 09:08 02/25/19 09:08 02/25/19 07:02 02/25/19 09:08 Oxygen Delivery Method Room Air Weight: 215 lb 9.793 oz Body Mass Index (BMI) 37.0 Laboratory Tests Past 24 Hrs 02/25/19 02/25/19 02/25/19 03:15 03:15 03:15 WBC 17.1 H RBC 5.17 Hgb 16.2 H Hct 47.4 H MCV 91.7 MCH 31.3 MCHC 34.2 RDW 13.5 RDW Differential 44.6 H Plt Count 228 MPV 9.9 Immature Gran % (Auto) 0.500 Neut % (Auto) 81.1 H Lymph % (Auto) 13.3 L [place] % (Auto) 3.9 Eos % (Auto) 1.0 Baso % (Auto) 0.2 Absolute Neuts (auto) 13.9 H Absolute Lymphs (auto) 2.28 Total Counted Not Reportable PT 13.5 INR 1.1 Sodium 138 Potassium 3.2 L Chloride 103 Carbon Dioxide 26.0 Anion Gap 9 BUN 30 H Creatinine 1.36 H Estim Creat Clear Calc 37.51 Est GFR (MDRD) Af Amer 51 L Est GFR (MDRD) Non-Af 42 L BUN/Creatinine Ratio 22.1 H Glucose 142 H Calcium 9.0 Total Bilirubin 0.50 AST 14 L ALT 19 Alkaline Phosphatase 90 Total Protein 7.4 Albumin 3.3 Globulin 4.1 Albumin/Globulin Ratio 0.8 L Lipase 95 Urine Color Urine Clarity Urine pH Ur Specific [place] Urine Protein Urine Glucose (UA) Urine Ketones Urine Occult Blood Urine Nitrite Urine Bilirubin Urine Urobilinogen Ur Leukocyte Esterase Urine RBC Urine WBC Ur Squamous Epith Cells Urine Bacteria Urine Mucus 02/25/19 04:10 WBC RBC Hgb Hct MCV MCH MCHC RDW RDW Differential Plt Count MPV Immature Gran % (Auto) Neut % (Auto) Lymph % (Auto) [place] % (Auto) Eos % (Auto) Baso % (Auto) Absolute Neuts (auto) Absolute Lymphs (auto) Total Counted PT INR Sodium Potassium Chloride Carbon Dioxide Anion Gap BUN Creatinine Estim Creat Clear Calc Est GFR (MDRD) Af Amer Est GFR (MDRD) Non-Af BUN/Creatinine Ratio Glucose Calcium Total Bilirubin AST ALT Alkaline Phosphatase Total Protein Albumin Globulin Albumin/Globulin Ratio Lipase Urine Color Yellow Urine Clarity Clear Urine pH 6.0 Ur Specific [place] 1.010 Urine Protein Negative Urine Glucose (UA) Normal Urine Ketones Negative Urine Occult Blood Negative Urine Nitrite Negative Urine Bilirubin Negative Urine Urobilinogen Normal Ur Leukocyte Esterase Negative Urine RBC 0 SEEN Urine WBC 0 SEEN Ur Squamous Epith Cells 0 SEEN Urine Bacteria 0 SEEN Urine Mucus 0 SEEN Medical Necessity - Tobacco Use Smoking Status: Current every day smoker Tobacco Use: Cigarettes Assessment/Plan 1. Diverticular abscess with possible involvement of the uterus (per CT) - Severe pain, guarding, leukocytosis, chills. Continue flagyl, cipro. Allergic to PCN - hives. She has not had any PO today. She continues to have pain, cramps, and mucus/bloody BMs. Lipase neg. UA neg. -Attempt transvaginal US, however it is unclear if she will be able to get through the procedure with her current pain and inability to sit very long -nontransvag would require ingestion and holding of oral fluid bolus which i dont feel confident that she should have currently 2. Asthma - wheezing. Obtain CXR. Duoneb x1. No increased O2 demand and no stated SOB 3. ? ELIAS - continue IV fluids 4. Hx colitis, diverticulitis - last endoscopy [address] Mccall. 5. HTN/HLD - hold orals DVT ppx: SCDs This patient was seen by Landon Stone PA-C under the supervision of Dr. Rodriguez.
--- NOTE | 2019-02-25 10:30 | NURSING ---
Update provided to ridge arndt, over the phone.
[2019-02-25] MEDS: Ipratropium/Albuterol Sulfate 3 ML AMPUL.NEB INHALATION (12:13)
[2019-02-25 12:59] LABS: Hematocrit 44.1 % (37-47)
--- NOTE | 2019-02-25 13:30 | CASEMGMT ---
RN CM Assessment Presentation: Diverticulitis w/ possible abcess Intro role of CM and purpose of RN CM assessment to patient. Pt is sleepy, awakens but then falls back to sleep. RN CM requested to call friend Lacy and pt is agreable. Demographics, PCP and Pharmacy verified. -Call to friend Lacy who lives with pt. She verified address (changed in demographics). States pt is independent in ADL, however has difficulty due to back issues. No assistance at home and pt does not use any DME. States a nurse from [facility] comes to see pt once every 6 weeks. RN CM let friend know pt is stable, but sleepy and would not answer phone for now. Friend had called a few times to check on pt. Friend Lacy will attempt to call again this evening or tomorrow. PCP: Dr. Sheridan Specialists: none per pt. Preferred Pharmacy: [facility] Insurance: [employer] [facility] Prescription Benefit: yes LNOK: FriendLacy Living Arrangements: Lives in one story home with 2 steps to enter. Pt lives in friend Lacy. Is independent, but having more difficulty with ADL. Transportation: uses [facility] transportation or friend DME: No DME at home available. HHC: none Patient DC goals: Home DC PLAN: undetermined. PT/OT evaluations are pending. Ana Rosa JENSEN RN ACM
[2019-02-25] MEDS: HYDROmorphone 0.5 MG/0.5 ML SYRINGE 0.2 MG IV (16:18)
[2019-02-25 16:32] LABS: Absolute Lymphocyte Count 2.99 X10^3/ul (0.83-4.51); Absolute Neutrophil Count 8.5 X10^3/uL (2.0-7.7); Basophil# 0.04 X10^3/uL; Basophil% 0.3 % (0-1); Eosinophil# 0.08 X10^3/uL; Eosinophils% 0.6 % (0-5); Hematocrit 43.8 % (37-47); Hemoglobin 14.9 g/dl (12.0-15.0); Lymphocyte # 2.99 X10^3/ul (4.0); Lymphocyte % 23.9 % (19-41); Mean Corpuscular Hgb 31.9 pg (27.0-32.0); Mean Corpuscular Volume 93.8 fL (81-99); Mean Platelet Vol. 9.9 fl (6.2-12.0); Monocyte# 0.89 X10^3/uL; Monocyte% 7.1 % (0-10); Neutrophil # 8.48 X10^3/uL (2.7-7.7); Neutrophil % 67.9 % (47-70); Platelet Count 204 K/mm3 (150-450); RBC Distribution Width CV 13.6 % (11.6-14.6); RBC Distribution Width SD 46.3 fl (35.1-43.9); Red Blood Count 4.67 M/mm3 (4.2-5.4); White Blood Count 12.5 K/mm3 (4.4-11.0)
[2019-02-25 16:37] LABS: POSITIVE COUNT NO; POSITIVE DIFFERENTIAL NO; POSITIVE MORPHOLOGY NO
[2019-02-25 16:53] LABS: Phosphorus 3.7 mg/dL (2.5-4.9)
[2019-02-25 16:54] LABS: Lactic Acid 1.6 mmol/L (0.4-2.0)
[2019-02-25 16:55] LABS: Erythrocyte Sedimentation Rate 16 mm/hr (0-30)
[2019-02-25 16:56] LABS: Anion Gap 10 (5-15); BUN 21 mg/dL (7-18); BUN/Creat Ratio 23.2 RATIO (10-20); Calcium,Total 9.1 mg/dL (8.5-10.1); Chloride 106 mmol/L (98-107); EST Glomerular Filtration Rate 67 mL/min (>60); Est Glom Filt Rate - Afr Amer 81 mL/min (>60); Estimated Creatinine Clearance 56.68 ml/min; Glucose 102 mg/dL (74-106); Sodium Level 140 mmol/L (136-145)
[2019-02-25 19:40] LABS: Hemoglobin A1c 6.4 % (4.2-6.3)
--- NOTE | 2019-02-25 19:54 | CON.PCM_ITS ---
Reason for Consult Date of Consultation: 02/25/19 Reason for Consultation: pelvic mass, ? abscess, hematochezia History of Present Illness: The patient is a 59 year old F who presents with complaint of worsening abdominal pain in the left lower quadrant and pelvic area for the past. she noted some nausea but denied vomiting. With the pain persisted and she presented emergency department. In the emergency department she noted that she had multiple loose stools that were bloody in character. in the emergency department laboratory studies were obtained which inserted a white blood cell count of 17,000. CT scan of the abdomen pelvis was obtained with IV contrast. This demonstrated a 4 cm right adrenal mass. No bowel distention but was felt to be chronic diverticular changes in the sigmoid area along with a cystic mass 6.5 x 4.0 x 5.1 cm in size suspected to be an abscess. The patient had a previous CT scan in October 2018 which demonstrated a cystic area in this location to be 3.2 cm in size. the patient was admitted to the medicine service with plans for evaluation and possible procedures drainage mass. I was consulted for abdominal pain, questionable diverticular abscess and GI bleeding/hematochezia. the patient had presented to [facility] in March 2018. She underwent a CT scan of the abdomen and pelvis due to abdominal pain, constipation or leukocytosis. 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 a 3.2 cm hypodense area in the cervix was noted and CT scan at that time. the patient had a known pelvic mass previously which was questioned to be an ovarian or adnexal mass. The patient presented to [facility] and on May 06, 2018 underwent laparoscopic lysis of adhesions, laparoscopic bilateral salpingo-oophorectomy and laparoscopic umbilical hernia repair. This was performed by Dr. Lul Johnson M.D.interestingly, they did not see on laparoscopic inspection anything consistent with the 3 cm mass noted to be in the cul-de-sac.pathology returned as bilateral tubes and ovaries with 2 ovaries and fallopian tubes negative for malignancy and fibroadipose tissue consistent with a hernia sac. she returned To the emergency department at [facility] with a complaint of continued left lower quadrant pain on May 14, 2018. CT scan again demonstrated a 3.2 similar hypodense area within the cervix. it was questioned whether this represented a large nabothian cyst. CT scan also demonstrated a repair of the previous umbilical hernia. she was admitted to [facility] with a diagnosis of descending to sigmoid colon colitis from June 22 to June 24, 2018. CT scan demonstrated distal ascending colon thickening consistent with colitis extending to the sigmoid colon. There felt to be no drainable abnormalities and a persistent cystic lesion in the cervix was unchanged as was the right adrenal mass. The patient presented to [facility] on November 09, 2018. Again complaining with feeling like she is having about of diverticulitis and bright red blood per rectum. She noted 5 bloody bowel movements that date. CT scan suggested descending colon colitis. patient was discharged with emerged from and antibiotic instruction to follow up. I had seen the patient performed upper and lower endoscopy for issues related to his reflux and for screening colonoscopy. I performed upper and lower endoscopy on March 17, 2014. The patient was found to have mild duodenitis and gastritis. Colonoscopy was attempted but due to advanced diverticulosis and tortuosity was not able to be completed to be on the sigmoid colon. No specific abnormalities were seen in the sigmoid colon. A follow-up barium enema was otherwise unremarkable. Past Medical History Past Medical History (Chronic Problems): Chronic Problems (Last Reviewed 02/25/19 @ 06:26 by Manolo Oakley MD) HTN (hypertension) (Chronic) Colitis (Chronic) GERD (gastroesophageal reflux disease) (Chronic) HLD (hyperlipidemia) (Chronic) Insomnia (Chronic) Diverticulosis (Chronic) Medical History: Medical History (Last Reviewed 02/25/19 @ 06:26 by Manolo Oakley MD) Anxiety F41.9 Depression F32.9 History of high cholesterol Z86.39 PTSD (post-traumatic stress disorder) F43.10 Allergies Latex, Natural Rubber Allergy (Verified 02/25/19 07:05) Rash Penicillins Allergy (Verified 02/25/19 07:05) Rash Home Medications: Ambulatory Orders Medication Instructions Recorded Lisinopril/Hydrochlorothiazide 1 ea PO DAILY #30 tab 04/14/18 [Zestoretic 20-12.5 mg Tablet] Omeprazole [Prilosec] 40 mg PO DAILY 04/24/18 Albuterol Inhaler [Ventolin Hfa] 2 puff INHALATION Q4H PRN PRN 05/14/18 Simvastatin [Zocor] 40 mg PO QHS 10/27/18 Dicyclomine HCl [Bentyl] 20 mg PO Q6H PRN PRN #20 capsule 11/09/18 Docusate Sodium [Colace] 1 cap PO BID 02/25/19 Surgical History: Surgical History (Last Reviewed 02/25/19 @ 06:26 by Manolo Oakley MD) H/O tubal ligation Z98.51 History of section, classical Z98.891 Surgical History: - - bilateral [id number] 10, 2018- [facility] Lives: Roommate Smoking Status: Current every day smoker Tobacco Use: Cigarettes - *Family History Maternal History Items: Diabetes, Heart Disease Review of Systems Constitutional: Denies: Chills, Fever, Weight Change HEENT: Denies: Head Aches, Sinus Congestion, Sinus Drainage Cardiovascular: Denies: Chest Pain, Palpitations Respiratory: Denies: Cough, Shortness of breath at rest, Sputum production Gastrointestinal: Reports: Abdominal Pain, Hematochezia. Denies: Nausea, Vomiting Genitourinary: Denies: Dysuria Musculoskeletal: Denies: Joint Pain, Joint Tenderness Skin: Denies: Rash, Wounds Neurological: Denies: Numbness, Tingling, Focal weakness Psychiatric: Denies: Anxiety, Depression, Homicidal Ideations, Suicidal Ideations Hematologic/ Lymphatic: Denies: Easy Bruising, Easy Bleeding - Physical Exam General: Alert, Oriented x3, Cooperative Lungs: Clear to auscultation, Normal air movement Cardiovascular: Regular rate, No murmurs Abdomen: Bowel Sounds Present, Soft, Tender - left lower quadrant and suprapubic area Vital Signs Temp Pulse Resp BP Pulse Ox 98.0 F 64 16 136/60 H 92 02/25/19 17:40 02/25/19 17:40 02/25/19 17:40 02/25/19 17:40 02/25/19 17:40 Oxygen Delivery Method Room Air Weight: 97.8 kg Body Mass Index (BMI) 37.0 Intake and Output for Last 24 Hours 02/23/19 02/24/19 02/25/19 23:59 23:59 23:59 Intake Total 928 / 928 Balance 928 / 928 Laboratory Tests Past 24 Hrs 02/25/19 02/25/19 02/25/19 03:15 03:15 03:15 WBC 17.1 H RBC 5.17 Hgb 16.2 H Hct 47.4 H MCV 91.7 MCH 31.3 MCHC 34.2 RDW 13.5 RDW Differential 44.6 H Plt Count 228 MPV 9.9 Immature Gran % (Auto) 0.500 Neut % (Auto) 81.1 H Lymph % (Auto) 13.3 L [place] % (Auto) 3.9 Eos % (Auto) 1.0 Baso % (Auto) 0.2 Absolute Neuts (auto) 13.9 H Absolute Lymphs (auto) 2.28 Total Counted Not Reportable ESR PT 13.5 INR 1.1 Sodium 138 Potassium 3.2 L Chloride 103 Carbon Dioxide 26.0 Anion Gap 9 BUN 30 H Creatinine 1.36 H Estim Creat Clear Calc 37.51 Est GFR (MDRD) Af Amer 51 L Est GFR (MDRD) Non-Af 42 L BUN/Creatinine Ratio 22.1 H Glucose 142 H Hemoglobin A1c Lactic Acid Calcium 9.0 Phosphorus Magnesium Total Bilirubin 0.50 AST 14 L ALT 19 Alkaline Phosphatase 90 C-React Prot Ext Range Total Protein 7.4 Albumin 3.3 Globulin 4.1 Albumin/Globulin Ratio 0.8 L Lipase 95 Urine Color Urine Clarity Urine pH Ur Specific [place] Urine Protein Urine Glucose (UA) Urine Ketones Urine Occult Blood Urine Nitrite Urine Bilirubin Urine Urobilinogen Ur Leukocyte Esterase Urine RBC Urine WBC Ur Squamous Epith Cells Urine Bacteria Urine Mucus 02/25/19 02/25/19 02/25/19 03:15 04:10 12:45 WBC RBC Hgb 15.0 Hct 44.1 MCV MCH MCHC RDW RDW Differential Plt Count MPV Immature Gran % (Auto) Neut % (Auto) Lymph % (Auto) [place] % (Auto) Eos % (Auto) Baso % (Auto) Absolute Neuts (auto) Absolute Lymphs (auto) Total Counted ESR PT INR Sodium Potassium Chloride Carbon Dioxide Anion Gap BUN Creatinine Estim Creat Clear Calc Est GFR (MDRD) Af Amer Est GFR (MDRD) Non-Af BUN/Creatinine Ratio Glucose Hemoglobin A1c Lactic Acid Calcium Phosphorus 3.7 Magnesium Total Bilirubin AST ALT Alkaline Phosphatase C-React Prot Ext Range Total Protein Albumin Globulin Albumin/Globulin Ratio Lipase Urine Color Yellow Urine Clarity Clear Urine pH 6.0 Ur Specific [place] 1.010 Urine Protein Negative Urine Glucose (UA) Normal Urine Ketones Negative Urine Occult Blood Negative Urine Nitrite Negative Urine Bilirubin Negative Urine Urobilinogen Normal Ur Leukocyte Esterase Negative Urine RBC 0 SEEN Urine WBC 0 SEEN Ur Squamous Epith Cells 0 SEEN Urine Bacteria 0 SEEN Urine Mucus 0 SEEN 02/25/19 02/25/19 02/25/19 12:45 16:20 16:20 WBC 12.5 H RBC 4.67 Hgb 14.9 Hct 43.8 MCV 93.8 MCH 31.9 MCHC 34.0 RDW 13.6 RDW Differential 46.3 H Plt Count 204 MPV 9.9 Immature Gran % (Auto) 0.200 Neut % (Auto) 67.9 Lymph % (Auto) 23.9 [place] % (Auto) 7.1 Eos % (Auto) 0.6 Baso % (Auto) 0.3 Absolute Neuts (auto) 8.5 H Absolute Lymphs (auto) 2.99 Total Counted Not Reportable ESR 16 PT INR Sodium Potassium Chloride Carbon Dioxide Anion Gap BUN Creatinine Estim Creat Clear Calc Est GFR (MDRD) Af Amer Est GFR (MDRD) Non-Af BUN/Creatinine Ratio Glucose Hemoglobin A1c 6.4 H Lactic Acid 1.6 Calcium Phosphorus Magnesium Total Bilirubin AST ALT Alkaline Phosphatase C-React Prot Ext Range Total Protein Albumin Globulin Albumin/Globulin Ratio Lipase Urine Color Urine Clarity Urine pH Ur Specific [place] Urine Protein Urine Glucose (UA) Urine Ketones Urine Occult Blood Urine Nitrite Urine Bilirubin Urine Urobilinogen Ur Leukocyte Esterase Urine RBC Urine WBC Ur Squamous Epith Cells Urine Bacteria Urine Mucus 02/25/19 16:20 WBC RBC Hgb Hct MCV MCH MCHC RDW RDW Differential Plt Count MPV Immature Gran % (Auto) Neut % (Auto) Lymph % (Auto) [place] % (Auto) Eos % (Auto) Baso % (Auto) Absolute Neuts (auto) Absolute Lymphs (auto) Total Counted ESR PT INR Sodium 140 Potassium 4.0 Chloride 106 Carbon Dioxide 24.0 Anion Gap 10 BUN 21 H Creatinine 0.90 Estim Creat Clear Calc 56.68 Est GFR (MDRD) Af Amer 81 Est GFR (MDRD) Non-Af 67 BUN/Creatinine Ratio 23.2 H Glucose 102 Hemoglobin A1c Lactic Acid Calcium 9.1 Phosphorus Magnesium 2.0 Total Bilirubin AST ALT Alkaline Phosphatase C-React Prot Ext Range 19.50 H Total Protein Albumin Globulin Albumin/Globulin Ratio Lipase Urine Color Urine Clarity Urine pH Ur Specific [place] Urine Protein Urine Glucose (UA) Urine Ketones Urine Occult Blood Urine Nitrite Urine Bilirubin Urine Urobilinogen Ur Leukocyte Esterase Urine RBC Urine WBC Ur Squamous Epith Cells Urine Bacteria Urine Mucus Assessment/Plan seemingly stable until now slightly enlarged pelvic cystic structure questionable cervical cyst, hematochezia, leukocytosis-third episode the patient is being admitted to the medicine service and was started on Cipro and Flagyl. This sounds like his third episode of leukocytosis pain and bloody diarrhea. This ascending more consistent with inflammatory bowel disease. I would plan to perform an unprepped colonoscopy or if she is feeling better in the morning try a gentle prep of Naa lax and Gatorade and attempt colonoscopy later in the day. Stool cultures are currently pending. pelvic cystic structure in the cul-de-sac seems larger than 3 months previously. There was apparently no obvious intra-abdominal mass in the cul-de-sac on laparoscopy. I ultrasound, the cystic mass seems approximately the size previously noted. Would consider gynecology evaluation to assess cervical cyst versus attempted aspiration to assess contents of the cyst as an abscess was considered.. Clinically, diverticulitis should present as an infection or a diverticular bleed but not both. I would therefore be more inclined to believe this is recurrent colitis and that the cyst if there is grown or is not necessarily related to recurrent bleeding and pain episodes
[2019-02-26] VITALS (12 sets, daily range): BP systolic 115–179; BP diastolic 52–103; PULSE 62–89; RESP 16–28; TEMP 36.8–37.1; O2SAT 93–958
[2019-02-26] MEDS: LORazepam 2 MG/ML Syringe 0.5 MG IV ×2 (00:49→09:55)
[2019-02-26] MEDS: 0.9% NaCl Peripheral Flush Adult/Peds IV ×3 (00:50→05:27)
[2019-02-26] MEDS: Ciprofloxacin 400 MG/200 ML BAG 200 MG IV ×2 (04:53→16:58)
[2019-02-26] MEDS: HYDROmorphone 0.5 MG/0.5 ML SYRINGE 0.2 MG IV ×5 (05:06→22:59)
[2019-02-26 05:48] LABS: Absolute Lymphocyte Count 2.15 X10^3/ul (0.83-4.51); Absolute Neutrophil Count 6.9 X10^3/uL (2.0-7.7); Basophil# 0.02 X10^3/uL; Basophil% 0.2 % (0-1); Eosinophil# 0.07 X10^3/uL; Eosinophils% 0.7 % (0-5); Hematocrit 43.3 % (37-47); Hemoglobin 14.4 g/dl (12.0-15.0); Lymphocyte # 2.15 X10^3/ul (4.0); Lymphocyte % 22.1 % (19-41); Mean Corp Hgb Conc 33.3 g/gl (32-36); Mean Corpuscular Hgb 30.9 pg (27.0-32.0); Mean Corpuscular Volume 92.9 fL (81-99); Mean Platelet Vol. 9.7 fl (6.2-12.0); Monocyte# 0.59 X10^3/uL; Monocyte% 6.1 % (0-10); Neutrophil # 6.86 X10^3/uL (2.7-7.7); Neutrophil % 70.7 % (47-70); Platelet Count 223 K/mm3 (150-450); RBC Distribution Width CV 13.5 % (11.6-14.6); RBC Distribution Width SD 44.8 fl (35.1-43.9); Red Blood Count 4.66 M/mm3 (4.2-5.4); White Blood Count 9.7 K/mm3 (4.4-11.0)
[2019-02-26 06:04] LABS: POSITIVE COUNT NO; POSITIVE DIFFERENTIAL NO; POSITIVE MORPHOLOGY NO
[2019-02-26] MEDS: metroNIDAZOLE 500 MG/100 ML BAG 100 MG IV ×3 (06:11→22:48)
[2019-02-26 06:14] LABS: Anion Gap 7 (5-15); BUN 14 mg/dL (7-18); BUN/Creat Ratio 17.8 RATIO (10-20); Calcium,Total 9.2 mg/dL (8.5-10.1); Chloride 106 mmol/L (98-107); Creatinine, Serum 0.78 mg/dL (0.55-1.02); EST Glomerular Filtration Rate 79 mL/min (>60); Est Glom Filt Rate - Afr Amer 96 mL/min (>60); Glucose 126 mg/dL (74-106); Potassium 4.3 mmol/L (3.5-5.1); Sodium Level 139 mmol/L (136-145)
--- NOTE | 2019-02-26 08:26 | PCM.CONS.B ---
- Consult Date of Consult: 02/26/19 59 yo female admitted through the ED for abdominal cramping / pain, diarrhea and tenesmus with bloody and milky appearing stool . CC of nausea, multiple loose stools with blood. Severe LLQ pain radiating to low back and suprapubic region. She states it feels like her uterus is ripping out. She has known h/o diverticulosis/diverticulitis. 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 No PMB No history of abnormal paps. Past Medical History: HTN Colitis 05/2018 GERD Hyperlipidemia Diverticulosis Asthma Insomnia Past Surgical history: Two C sections Bilateral tubal ligation. Abdominal hernia repair Patient relates she had surgery last summer in Mar/Apr (2017) with Dr Yoon in [place] (BATH MIX OPERATOR ONC). Per patient, Dr Yoon took out both ovaries which were benign on pathology, and Dr Yoon informed her that she was full of scar tissue. Family History: unknown Social: Neg EtOH, + marijuana, smoker. Medications: See hospital [facility], includes Flagyl and Cipro Radiology studies: CT of pelvis and abdomen: 6.5 x 4.0 x 5.1 cystic mass with spec of air Cystic mass posterior to cervix 5.1 cm. (inc from 3.2 cm on 03/2018 study) Chronic diverticular disease with well circumscribed 6.5 x 4.0 x 5.1 cm cystic mass . Abscess picket suspected. Pelvic ultrasound: Uterus 5.1 x 3.9 x 3.0 cm with normal cervix. and thin endometrial stripe 3.3 mm. Neither ovary seen No free fluid or free air Posterior to cervix in the cul de sac 4.9 x 4.7 x 3.7 cm complex fluid collection Impression: Posterior to the cervix in the cul-de-sac, there is a 4.9 cm x 4.7 cm x 3.7 cm complex cystic collection. This may represent focal abscess collection or blood. LABS: WBCs at admission 17,100. Normalized by the time of consult. Hgb 16.2. BMP Cr 1.36. Potassium 3.2 Glucose 142. GFR low. UA negative. EXAM: Temp 98.7, pulse 71 BP 115/52 Alert, oriented, NAD, conversant. HEENT normocephalic atraumatic EOMI. Sclerae anicteric Neck supple Cranial nerves grossly intact Lungs: regular respiratory rate and rhythm. Pelvic exam deferred. A/P: Cystic mass posterior to cervix. Prior BSO with BATH MIX OPERATOR ONC, reportedly severe intraabdominal adhesions documented at that surgery per patient. Not likely BATH MIX OPERATOR origin and more likely due to adhesions in the dependent portion of the pelvis 2/2 prior inflammatory process. No h/o abnormal paps, nothing BATH MIX OPERATOR would cause her current symptoms. Suspect atypical presentation due to bowel process, possibly of diverticular disease Discussed impression with Dr Rodriguez.
[2019-02-26] MEDS: Electrolyte Solution/Peg's 4000 ML 2000 ML PO (09:32)
--- NOTE | 2019-02-26 13:00 | CT_ITS ---
PROCEDURE: CT DIRECTED ABSCESS DRAINAGE, PERITONEAL DATE OF EXAMINATION: February 26, 2019. INDICATION: Female, 59 years old. Pelvic abscess. PHYSICIAN: Richard Ndiaye M.D. CONSENT: Written informed consent was obtained having explained the risks, benefits and alternatives in detail with the patient who accepted the risks and agreed to proceed. Laboratory review and clinical assessment was performed. CONSCIOUS SEDATION PROTOCOL: The Drugs used were: 2 mg Versed, IV., and 100 mcg Fentanyl, IV. The sedation time was: 15 minutes. Conscious sedation was started at 2:07 PM estimated at 2:22 PM. The conscious sedation protocol was independently monitored. RADIATION DOSAGE (If Supplied By Facility): CTDIvol = ( 49.04 ) mGy, DLP = ( a 49.25 ) mGycm TECHNIQUE: CT sections were made through the abdomen and pelvis revealing an abscess in the right side of the pelvis. The skin surface was prepped and draped in a sterile fashion. Puncture of this collection was performed initially with a 5 Hungarian catheter and fluid was aspirated. Drainage catheter was then inserted into the collection and formed into position. Additional fluid was aspirated for a total of approximately 35 cc of cloudy red fluid. The catheter was sutured into position to allow for continued drainage. Followup CT sections reveals good position of the catheter. A followup CT examination was ordered within 48 hours.It could be done as indicated however. CT/CT Guidance Abscess Drg w/Cath IMPRESSION: 1. CT directed drainage of a fluid collection using CT image guidance and image documentation as described. 2. Conscious Sedation protocol utilized with independent monitoring Electronically Signed: Richard Ndiaye, at 15:31 EDT , Service support ,
--- NOTE | 2019-02-26 14:00 | FLU_PTH ---
PATIENT: BARI LAUGHLIN LOC: MS3 U#:[id number] AGE/SX: 59/F ROOM: MS311 RE02/25/[address]: Dr. Vesna Rodriguez DO : 1960 BED: 1 DIS: 02/28/2019 SPEC #: [id number] RECD: 02/26/19 14:51 STATUS: SHANNAN RELee #: [id number] ASHLEY: 02/26/19 14:[address]: Vesna Rodriguez DEPT: CYTOLOGY RECD BY: Deacon Johnson ENTERED: 02/28/19 14:48 SP TYPE: Fluid OTHR DR: MD Dr. Angelica Pearce MD Dr. Joseph Agyepong, MD Dr. Richard Guttman, MD Tissues: Abdomen, NOS Procedures: PAS Fungus (control) Special Stain Group II Special Stain Group I Surgery Specimen Level IV AFB Stain (control) Cytospin Fluid HEADER OPERATION: Abscess drainage PRE-OP DIAGNOSIS: Abdomen pain TISSUE SUBMITTED: Abscess drainage DIAGNOSIS CYTOLOGY Abscess drainage (cytospin and cell block): Negative for malignant cells. Marked acute inflammation consistent with abscess. Special stains for acid fast bacilli and fungi are negative for organisms; matched controls are appropriate. MERCY:wayne 03/03/19 CYTOLOGY STUDY Slides are reviewed. CYTOLOGY GROSS Received is 31 ml of cloudy red and green fluid labeled with the patient's name and and designated per the requisition as abscess. Submitted for cytology preparation including cell block. / 02/28/19 TC:2 CPT: 28653, 01706, 27861 x2
[2019-02-26] MEDS: Midazolam 2 MG/2 ML Syringe IV (14:06)
[2019-02-26] MEDS: fentaNYL 100 MCG/2 ML Ampul IV ×2 (14:07→14:22)
--- NOTE | 2019-02-26 14:34 | NURSING ---
02/26/19 am Micro notified this RN of positive enteric panel shiga [address] Mccall notified. He stated maybe we can treat the bacterial infection instead of colonoscopy which would be planned for 02/26/19 am. At 1425 micro notified me that they repeated the enteric panel and it is now negative. The am result was a false positive. infirmary attendant Kwaku updated.
--- NOTE | 2019-02-26 15:14 | CASEMGMT ---
Addendum entered by Brigette Wood 02/26/19 16:09: Per Dr Rodriguez, pt will not be discharged tomorrow d/t drain placed for abscess today by Dr Ndiaye. Spoke w/Chelsey @ [facility] and she states they are able to accept pt. She was made aware pt will not be discharged tomorrow. CM to follow. May need shelter added to [facility]. Original Note: RN FREDDY NOTE: Per Dr Rodriguez, she anticipates pt may discharge or Sunday. To room to talk with pt. Pt states she would like [facility] for therapy once she returns home. Pt confirms she is homebound and it takes considerable amount of effort for her to go places. Pt states she does not have a preference of agency as long as they are in network with her insurance. Call placed to [facility] and referral made. Green sheet on chart if pt discharges . Josef JENSEN RN CM
[2019-02-26 15:20] LABS: Cytology, Body Fluid / CSF SEE PATHOLOGY REPORT
--- NOTE | 2019-02-26 15:20 | CASEMGMT ---
Social Work Call to [facility] and name of pt CM obtained: Peggy Oglesby [phone]. Call placed to Peggy and VM left requesting a return call to discuss possibility of pt receiving services under the Waiver program. DAMIAN Robles
--- NOTE | 2019-02-26 15:58 | PCM.PROGNOTE ---
Subjective: Day #2 Bushra and Harjit Afebrile since admission Blood pressures are stable, blood pressure is mildly elevated when she is having pain Fluid balance since admission is +[phone] All lab was personally reviewed. The white blood cell count today is 9.7, down from 12.5 at admission. Neutrophils are 70.7%. Hemoglobin and platelets are within normal limits. The BUN is down to 14 from 21 with hydration. Creatinine is 0.78, down from 0.9 at admission. The sed rate was normal at 16. Hemoglobin A1c was 6.4. C-reactive protein is mildly elevated at 19.5. The patient was taken to radiology for a CT-guided drainage of the collection posterior to the cervix. There was 35 cc of bloody roa fluid aspirated. A drain was placed. Gram stain and culture of the aspirate are pending. Enteric pathogen panel was negative. C. difficile was negative. Stool lactoferrin was positive. Ova and parasites are pending. I reviewed Dr. Mccullough's consult and discussed with her on the phone. Patient is feeling somewhat better. The pain is adequately controlled with 0.2 mg of IV Dilaudid every few hours. She has not had a bowel movement today. She does complain of some pain at the site of insertion of the drain. She denies nausea and has not had emesis. - Physical Exam General: Alert, Oriented x3, Cooperative, - - Looks much more comfortable today Oral: Dry Mucosa Lungs: Clear to auscultation, Diminished - In the bases Cardiovascular: Regular rate, Regular Rhythm, Normal S1, Normal S2 Abdomen: Bowel Sounds Present, Soft, Non-Distended, Tender - mostly in the pelvis....she feels like her uterus is being pulled apart Extremities: No edema Skin: No rashes Neurological: Cranial nerves II-XII grossly intact, Neuro grossly intact Psych/Mental Status: Normal Affect, Appropriate Vital Signs Temp Pulse Resp BP Pulse Ox 98.4 F 70 18 131/57 H 95 02/26/19 15:30 02/26/19 15:30 02/26/19 15:30 02/26/19 15:30 02/26/19 15:30 Oxygen Delivery Method [4] Room Air Oxygen Delivery Method [3] Room Air Oxygen Delivery Method [2] Room Air Oxygen Delivery Method [1 ( Room Air Initial Baseline)] Oxygen Delivery Method Room Air Weight: 215 lb 9.793 oz Body Mass Index (BMI) 37.0 Intake and Output for Last 24 Hours 02/24/19 02/25/19 02/26/19 23:59 23:59 23:59 Intake Total 928 / 928 2494 / 2494 Output Total 400 / 400 Balance 928 / 928 2094 / 2094 Microbiology Past 72 Hours 02/25/19 16:00 Enteric Bacteriology - Final Stool 02/25/19 20:20 C. difficile DNA Amplification - Final Stool 02/25/19 20:20 Stool Lactoferrin - Final Stool Laboratory Tests Past 24 Hrs 02/25/19 02/25/19 02/25/19 03:15 12:45 16:20 WBC RBC Hgb Hct MCV MCH MCHC RDW RDW Differential Plt Count MPV Immature Gran % (Auto) Neut % (Auto) Lymph % (Auto) [place] % (Auto) Eos % (Auto) Baso % (Auto) Absolute Neuts (auto) Absolute Lymphs (auto) Total Counted ESR Sodium Potassium Chloride Carbon Dioxide Anion Gap BUN Creatinine Estim Creat Clear Calc Est GFR (MDRD) Af Amer Est GFR (MDRD) Non-Af BUN/Creatinine Ratio Glucose Hemoglobin A1c 6.4 H Lactic Acid 1.6 Calcium Phosphorus 3.7 Magnesium C-React Prot Ext Range Miscellaneous Cytology 02/25/19 02/25/19 02/26/19 16:20 16:20 05:34 WBC 12.5 H 9.7 RBC 4.67 4.66 Hgb 14.9 14.4 Hct 43.8 43.3 MCV 93.8 92.9 MCH 31.9 30.9 MCHC 34.0 33.3 RDW 13.6 13.5 RDW Differential 46.3 H 44.8 H Plt Count 204 223 MPV 9.9 9.7 Immature Gran % (Auto) 0.200 0.200 Neut % (Auto) 67.9 70.7 H Lymph % (Auto) 23.9 22.1 [place] % (Auto) 7.1 6.1 Eos % (Auto) 0.6 0.7 Baso % (Auto) 0.3 0.2 Absolute Neuts (auto) 8.5 H 6.9 Absolute Lymphs (auto) 2.99 2.15 Total Counted Not Reportable Not Reportable ESR 16 Sodium 140 Potassium 4.0 Chloride 106 Carbon Dioxide 24.0 Anion Gap 10 BUN 21 H Creatinine 0.90 Estim Creat Clear Calc 56.68 Est GFR (MDRD) Af Amer 81 Est GFR (MDRD) Non-Af 67 BUN/Creatinine Ratio 23.2 H Glucose 102 Hemoglobin A1c Lactic Acid Calcium 9.1 Phosphorus Magnesium 2.0 C-React Prot Ext Range 19.50 H Miscellaneous Cytology 02/26/19 02/26/19 05:34 15:15 WBC RBC Hgb Hct MCV MCH MCHC RDW RDW Differential Plt Count MPV Immature Gran % (Auto) Neut % (Auto) Lymph % (Auto) [place] % (Auto) Eos % (Auto) Baso % (Auto) Absolute Neuts (auto) Absolute Lymphs (auto) Total Counted ESR Sodium 139 Potassium 4.3 Chloride 106 Carbon Dioxide 26.0 Anion Gap 7 BUN 14 Creatinine 0.78 Estim Creat Clear Calc 65.40 Est GFR (MDRD) Af Amer 96 Est GFR (MDRD) Non-Af 79 BUN/Creatinine Ratio 17.8 Glucose 126 H Hemoglobin A1c Lactic Acid Calcium 9.2 Phosphorus Magnesium C-React Prot Ext Range Miscellaneous Cytology Pending Medical Necessity - Tobacco Use Smoking Status: Current every day smoker Tobacco Use: Cigarettes Assessment/Plan Impressions 1. pelvic abscess - drained with CT guidance on 02/26/19 and a drain was left in 3. bloody diarrhea -etiology? 4. HTN 5. Acute kidney injury 6. Diverticulosis 7. PTSD 8. Obesity 9. Prediabetes/glucose intolerance with a hemoglobin A1c of 6.4 Continue Flagyl and Cipro Repeat CT scan in 48 hours Advance diet to clears D/W Dr. Mccall - since we have no source for the bloody diarrhea and she has had this twice in the past year will plan on a colonoscopy Sunday Dietitian consult to educate the patient regarding carb control and weight loss Code Visit Inpatient E&M: 16511 Subs Hosp L2
[2019-02-26] MEDS: ALPRAZolam 0.25 MG Tablet PO (17:09)
[2019-02-27] VITALS (8 sets, daily range): BP systolic 135–200; BP diastolic 66–104; PULSE 65–90; RESP 16–18; TEMP 36.7–36.9; O2SAT 68–97
[2019-02-27] MEDS: LORazepam 2 MG/ML Syringe 0.5 MG IV (02:04)
[2019-02-27] MEDS: Ciprofloxacin 400 MG/200 ML BAG 200 MG IV ×2 (04:47→17:14)
[2019-02-27] MEDS: HYDROmorphone 0.5 MG/0.5 ML SYRINGE IV ×4 (05:03→22:55)
[2019-02-27] MEDS: metroNIDAZOLE 500 MG/100 ML BAG 100 MG IV ×3 (05:58→22:46)
--- NOTE | 2019-02-27 08:07 | PCM.PN.SRG ---
Subjective: Missed Note February 26-patient with continued left lower quadrant pain - Physical Exam General: Alert, Oriented x3 Lungs: Clear to auscultation, Normal air movement Cardiovascular: Regular rate, No murmurs Abdomen: Bowel Sounds Present, Soft, Tender - suprapubic and left lower quadrant area Vital Signs Temp Pulse Resp BP Pulse Ox 98.3 F 66 18 173/69 H 94 02/27/19 02:05 02/27/19 05:02 02/27/19 05:02 02/27/19 05:02 02/27/19 05:02 Oxygen Delivery Method [4] Room Air Oxygen Delivery Method [3] Room Air Oxygen Delivery Method [2] Room Air Oxygen Delivery Method [1 ( Room Air Initial Baseline)] Oxygen Delivery Method Room Air Weight: 97.8 kg Body Mass Index (BMI) 37.0 Intake and Output for Last 24 Hours 02/25/19 02/26/19 02/27/19 23:59 23:59 23:59 Intake Total 928 / 928 3338 / 3338 2496 / 2496 Output Total 900 / 900 1323 / 1323 Balance 928 / 928 2438 / 2438 1173 / 1173 Microbiology Past 72 Hours 02/25/19 16:00 Enteric Bacteriology - Final Stool 02/25/19 20:20 C. difficile DNA Amplification - Final Stool 02/25/19 20:20 Stool Lactoferrin - Final Stool Laboratory Tests Past 24 Hrs 02/26/19 15:15 Miscellaneous Cytology Pending Medical Necessity - Tobacco Use Smoking Status: Current every day smoker Tobacco Use: Cigarettes Assessment/Plan seemingly stable until now slightly enlarged pelvic cystic structure questionable cervical cyst, hematochezia, leukocytosis-third episode the patient is being admitted to the medicine service and was started on Cipro and Flagyl. This sounds like his third episode of leukocytosis pain and bloody diarrhea. This ascending more consistent with inflammatory bowel disease. I would plan to perform an unprepped colonoscopy or if she is feeling better in the morning try a gentle prep of Naa lax and Gatorade and attempt colonoscopy later in the day. Stool cultures are currently pending. pelvic cystic structure in the cul-de-sac seems larger than 3 months previously. There was apparently no obvious intra-abdominal mass in the cul-de-sac on laparoscopy. I ultrasound, the cystic mass seems approximately the size previously noted. Would consider gynecology evaluation to assess cervical cyst versus attempted aspiration to assess contents of the cyst as an abscess was considered. Clinically, diverticulitis should present as an infection or a diverticular bleed but not both. I would therefore be more inclined to believe this is recurrent colitis and that the cyst if there is grown or is not necessarily related to recurrent bleeding and pain episodes. I initially stool culture returned as positive for shiga toxin. Repeat test demonstrated no positive stool cultures-negative C. difficile, negative enteric pathogens. Fecal leukocytes were positive. initially planned for bowel prep this morning and colonoscopy later in the afternoon but then plan for drainage of abscess and CT scan which otherwise could not be done until Sunday was felt to be more clinically necessary. We'll plan for endoscopy in the next few days.
--- NOTE | 2019-02-27 08:10 | PCM.PN.SRG ---
Subjective: less abdominal pain after drainage of abscess but still left-sided complaints. Now buttock discomfort at drain site - Physical Exam General: Alert, Oriented x3, Cooperative Lungs: Clear to auscultation, Normal air movement Cardiovascular: Regular rate, No murmurs Abdomen: Bowel Sounds Present, Soft, Tender - less tender in suprapubic and left lower quadrant, pigtail draining buttock has serous bloody fluid. Vital Signs Temp Pulse Resp BP Pulse Ox 98.3 F 66 18 173/69 H 94 02/27/19 02:05 02/27/19 05:02 02/27/19 05:02 02/27/19 05:02 02/27/19 05:02 Oxygen Delivery Method [4] Room Air Oxygen Delivery Method [3] Room Air Oxygen Delivery Method [2] Room Air Oxygen Delivery Method [1 ( Room Air Initial Baseline)] Oxygen Delivery Method Room Air Weight: 97.8 kg Body Mass Index (BMI) 37.0 Intake and Output for Last 24 Hours 02/25/19 02/26/19 02/27/19 23:59 23:59 23:59 Intake Total 928 / 928 3338 / 3338 2496 / 2496 Output Total 900 / 900 1323 / 1323 Balance 928 / 928 2438 / 2438 1173 / 1173 Microbiology Past 72 Hours 02/25/19 16:00 Enteric Bacteriology - Final Stool 02/25/19 20:20 C. difficile DNA Amplification - Final Stool 02/25/19 20:20 Stool Lactoferrin - Final Stool Laboratory Tests Past 24 Hrs 02/26/19 15:15 Miscellaneous Cytology Pending Medical Necessity - Tobacco Use Smoking Status: Current every day smoker Tobacco Use: Cigarettes Assessment/Plan seemingly stable until now slightly enlarged pelvic cystic structure questionable cervical cyst, hematochezia, leukocytosis-third episode the patient is being admitted to the medicine service and was started on Cipro and Flagyl. This sounds like his third episode of leukocytosis pain and bloody diarrhea. This ascending more consistent with inflammatory bowel disease. I would plan to perform an unprepped colonoscopy or if she is feeling better in the morning try a gentle prep of Naa lax and Gatorade and attempt colonoscopy later in the day. Stool cultures are currently pending. pelvic cystic structure in the cul-de-sac seems larger than 3 months previously. There was apparently no obvious intra-abdominal mass in the cul-de-sac on laparoscopy. I ultrasound, the cystic mass seems approximately the size previously noted. Would consider gynecology evaluation to assess cervical cyst versus attempted aspiration to assess contents of the cyst as an abscess was considered. Clinically, diverticulitis should present as an infant infection or a diverticular bleed but not both. I would therefore be more inclined to believe this is recurrent colitis and that the cyst if there is grown or is not necessarily related to recurrent bleeding and pain episodes. I initially stool culture returned as positive for shiga toxin. Repeat test demonstrated no positive stool cultures-negative C. difficile, negative enteric pathogens. Fecal leukocytes were positive. initially planned for bowel prep this morning and colonoscopy later in the afternoon but then plan for drainage of abscess and CT scan which otherwise could not be done until Sunday was felt to be more clinically necessary. we'll plan for bowel prep later today and colonoscopy tomorrow. Cytology and cultures are pending from fluid. Questionable more consistent with cysts and abscesses? Follow drainage output
[2019-02-27] MEDS: Electrolyte Solution/Peg's 4000 ML 2000 ML PO (16:17)
--- NOTE | 2019-02-27 17:01 | NURSING ---
report given to carey ramires on ms3
--- NOTE | 2019-02-27 17:58 | PCM.PROGNOTE ---
Subjective: Day #3 Cipro and Flagyl Afebrile Vital signs are stable. Blood pressures intermittently elevated depending on her level of anxiety. Preliminary on the culture of the drainage from the pelvic abscess is 3+ group C strep Less pelvic pain today. No N/V. Scheduled for colonoscopy tomorrow. Having local pain at the drain site. - Physical Exam General: Alert, Oriented x3, Cooperative Oral: Moist Mucosa Lungs: Clear to auscultation Cardiovascular: Regular rate, Regular Rhythm, Normal S1, Normal S2, No Gallop Abdomen: Bowel Sounds Present, Soft, Non-Distended, Tender - mild LLQ and suprapubic.....mostly she is complaining of pain at the drain site Extremities: No edema Skin: No rashes Vital Signs Temp Pulse Resp BP Pulse Ox 98.3 F 85 18 200/104 H 68 02/27/19 17:49 02/27/19 17:49 02/27/19 17:49 02/27/19 17:49 02/27/19 17:49 Oxygen Delivery Method [4] Room Air Oxygen Delivery Method [3] Room Air Oxygen Delivery Method [2] Room Air Oxygen Delivery Method [1 ( Room Air Initial Baseline)] Oxygen Delivery Method Room Air Weight: 215 lb 9.793 oz Body Mass Index (BMI) 37.0 Intake and Output for Last 24 Hours 02/25/19 02/26/19 02/27/19 23:59 23:59 23:59 Intake Total 928 / 928 3338 / 3338 4392 / 4392 Output Total 900 / 900 2323 / 2323 Balance 928 / 928 2438 / 2438 2069 / 2069 Microbiology Past 72 Hours 02/26/19 15:15 Gram Stain - Final Fluid - Other Body Fluid Culture - Preliminary Streptococcus group C 02/25/19 16:00 Enteric Bacteriology - Final Stool 02/25/19 20:20 C. difficile DNA Amplification - Final Stool 02/25/19 20:20 Stool Lactoferrin - Final Stool Medical Necessity - Tobacco Use Smoking Status: Current every day smoker Tobacco Use: Cigarettes Assessment/Plan Impressions 1. pelvic abscess - drained with CT guidance on 02/26/19 and a drain was left in. Culture with Group C strep - final is pending. 3. bloody diarrhea -etiology? 4. HTN 5. Acute kidney injury-resolved 6. Diverticulosis 7. PTSD 8. Obesity 9. Prediabetes/glucose intolerance with a hemoglobin A1c of 6.4 Continue Flagyl and ULISES CIpro. Start Erythromycin Repeat the CT tomorrow afternoon or Sunday Continue clears in preparation for endoscopy tomorrow Recheck lab in the AM Code Visit Inpatient E&M: 70349 Subs Hosp L1
[2019-02-27] MEDS: ALPRAZolam 0.25 MG Tablet PO (18:08)
[2019-02-27] MEDS: Ondansetron 4 MG/2 ML Vial IV (19:15)
[2019-02-27] MEDS: levoFLOXacin IV 500 MG/100 ML BAG 100 MG IV (20:43)
[2019-02-27] MEDS: 0.9% NaCl Peripheral Flush Adult/Peds IV ×2 (20:58→22:55)
[2019-02-28] VITALS (9 sets, daily range): BP systolic 114–154; BP diastolic 48–98; PULSE 61–77; RESP 18; TEMP 36.3–37.1; O2SAT 93–97
[2019-02-28] MEDS: HYDROmorphone 0.5 MG/0.5 ML SYRINGE IV ×2 (03:16→09:04)
[2019-02-28] MEDS: 0.9% NaCl Peripheral Flush Adult/Peds IV ×4 (03:16→13:37)
[2019-02-28] MEDS: LORazepam 2 MG/ML Syringe 0.5 MG IV (04:16)
--- NOTE | 2019-02-28 05:00 | EKG12_ITS ---
Test Reason : AM EKG Blood Pressure : / mmHG Vent. Rate : 061 BPM Atrial Rate : 061 BPM P-R Int : 160 ms QRS Dur : 084 ms QT Int : 436 ms P-R-T Axes : 067 081 039 degrees QTc Int : 438 ms Normal sinus rhythm Nonspecific ST abnormality Abnormal ECG Confirmed by JACE LENNON, TOM ([id number]), writer editor DON JEFFREY ([id number]) on 03/03/2019 1:55:32 PM Referred By: KELSEY Confirmed By:TOM MCCORMICK MD
[2019-02-28] MEDS: metroNIDAZOLE 500 MG/100 ML BAG 100 MG IV ×2 (05:03→13:37)
--- NOTE | 2019-02-28 06:09 | NURSING ---
CALLED REPORT TO ENDO
[2019-02-28 06:21] LABS: Absolute Lymphocyte Count 1.71 X10^3/ul (0.83-4.51); Basophil# 0.02 X10^3/uL; Basophil% 0.3 % (0-1); Eosinophil# 0.14 X10^3/uL; Eosinophils% 1.9 % (0-5); Hematocrit 39.6 % (37-47); Hemoglobin 12.9 g/dl (12.0-15.0); Lymphocyte # 1.71 X10^3/ul (4.0); Lymphocyte % 22.7 % (19-41); Mean Corp Hgb Conc 32.6 g/gl (32-36); Mean Corpuscular Hgb 30.5 pg (27.0-32.0); Mean Corpuscular Volume 93.6 fL (81-99); Mean Platelet Vol. 9.7 fl (6.2-12.0); Monocyte# 0.61 X10^3/uL; Monocyte% 8.1 % (0-10); Neutrophil # 5.04 X10^3/uL (2.7-7.7); Neutrophil % 66.9 % (47-70); Platelet Count 192 K/mm3 (150-450); RBC Distribution Width CV 13.2 % (11.6-14.6); RBC Distribution Width SD 43.8 fl (35.1-43.9); Red Blood Count 4.23 M/mm3 (4.2-5.4); White Blood Count 7.5 K/mm3 (4.4-11.0)
[2019-02-28 06:22] LABS: POSITIVE COUNT NO; POSITIVE DIFFERENTIAL NO; POSITIVE MORPHOLOGY NO
[2019-02-28 06:42] LABS: Anion Gap 6 (5-15); BUN 6 mg/dL (7-18); BUN/Creat Ratio 7.9 RATIO (10-20); Calcium,Total 8.6 mg/dL (8.5-10.1); Chloride 107 mmol/L (98-107); Creatinine, Serum 0.76 mg/dL (0.55-1.02); EST Glomerular Filtration Rate 82 mL/min (>60); Est Glom Filt Rate - Afr Amer 100 mL/min (>60); Estimated Creatinine Clearance 67.13 ml/min; Glucose 96 mg/dL (74-106); Potassium 3.9 mmol/L (3.5-5.1); Sodium Level 143 mmol/L (136-145)
--- NOTE | 2019-02-28 07:11 | PN_ITS ---
Subjective: All events of the past 24 hours of been reviewed. Day #4 tarsha quinolone and Flagyl ( changed to Levaquin from Cipro yesterday for better Strep coverage) Afebrile. Blood pressures are erratic secondary to intermittent anxiety She is maintaining appropriate oxygen saturation on room air. All lab was personally reviewed. White blood cell count today is 7.5 with a normal differential. Hemoglobin and platelets are within normal limits. BMP is unremarkable. Preliminary report on the fluid drained from the pelvis is group C strep, anaerobic culture is pending - Physical Exam Vital Signs Temp Pulse Resp BP Pulse Ox 97.3 F L 77 18 154/98 H 94 02/28/19 03:04 02/28/19 03:04 02/28/19 03:04 02/28/19 03:04 02/28/19 03:04 Oxygen Delivery Method [4] Room Air Oxygen Delivery Method [3] Room Air Oxygen Delivery Method [2] Room Air Oxygen Delivery Method [1 ( Room Air Initial Baseline)] Oxygen Delivery Method Room Air Weight: 215 lb 9.793 oz Body Mass Index (BMI) 37.0 Intake and Output for Last 24 Hours 02/26/19 02/27/19 02/28/19 23:59 23:59 23:59 Intake Total 3338 / 3338 6080 / 6080 840 / 840 Output Total 900 / 900 2328 / 2328 Balance 2438 / 2438 3752 / 3752 840 / 840 Microbiology Past 72 Hours 02/26/19 15:15 Gram Stain - Final Fluid - Other Body Fluid Culture - Preliminary Streptococcus group C 02/25/19 16:00 Enteric Bacteriology - Final Stool 02/25/19 20:20 C. difficile DNA Amplification - Final Stool 02/25/19 20:20 Stool Lactoferrin - Final Stool Laboratory Tests Past 24 Hrs 02/28/19 02/28/19 05:50 05:50 WBC 7.5 RBC 4.23 Hgb 12.9 Hct 39.6 MCV 93.6 MCH 30.5 MCHC 32.6 RDW 13.2 RDW Differential 43.8 Plt Count 192 MPV 9.7 Immature Gran % (Auto) 0.100 Neut % (Auto) 66.9 Lymph % (Auto) 22.7 [place] % (Auto) 8.1 Eos % (Auto) 1.9 Baso % (Auto) 0.3 Absolute Neuts (auto) 5.0 Absolute Lymphs (auto) 1.71 Total Counted Not Reportable Sodium 143 Potassium 3.9 Chloride 107 Carbon Dioxide 30.0 Anion Gap 6 BUN 6 L Creatinine 0.76 Estim Creat Clear Calc 67.13 Est GFR (MDRD) Af Amer 100 Est GFR (MDRD) Non-Af 82 BUN/Creatinine Ratio 7.9 L Glucose 96 Calcium 8.6 Medical Necessity - Tobacco Use Smoking Status: Current every day smoker Tobacco Use: Cigarettes
--- NOTE | 2019-02-28 07:44 | OP.ENDO_ITS ---
02/28/2019 Gloria Sheridan [address] [id number] Re : Colonoscopy procedure for Beatris Micah Dear Dr. Sheridan This procedure was performed on Thursday, February 28, 2019. My impressions and recommendations are as follows: Impressions : - Diverticulosis in the sigmoid colon. - The distal rectum and anal verge are normal on retroflexion view. - No specimens collected. Recommendations : - [facility]. - No recommendation at this time regarding repeat colonoscopy. - Continue present medications. My findings are described in the full procedure note, which is enclosed. If I can be of further assistance, please feel free to contact me at Doctor phone number(s): , Work: . Sincerely, Ced Mccall MD 02/28/2019 7:43:45 AM This report has been signed electronically.
[2019-02-28] MEDS: levoFLOXacin IV 500 MG/100 ML BAG 100 MG IV (09:57)
--- NOTE | 2019-02-28 16:58 | PN.SURG_ITS ---
Subjective: still left upper quadrant discomfort - Physical Exam General: Alert, Oriented x3 Lungs: Clear to auscultation, Normal air movement Cardiovascular: Regular rate, No murmurs Abdomen: Bowel Sounds Present, Soft, Tender - left upper quadrant andsome suprapubic area. Pigtail drain, serosanguineous with minimal output Vital Signs Temp Pulse Resp BP Pulse Ox 98.8 F 61 18 126/48 H 94 02/28/19 14:44 02/28/19 14:44 02/28/19 14:44 02/28/19 14:44 02/28/19 14:44 Oxygen Delivery Method [4] Room Air Oxygen Delivery Method [3] Room Air Oxygen Delivery Method [2] Room Air Oxygen Delivery Method [1 ( Room Air Initial Baseline)] Oxygen Delivery Method Room Air Weight: 97.8 kg Body Mass Index (BMI) 37.0 Intake and Output for Last 24 Hours 02/26/19 02/27/19 02/28/19 23:59 23:59 23:59 Intake Total 3338 / 3338 6080 / 6080 2052 Output Total 900 / 900 2328 / 2328 Balance 2438 / 2438 3752 / 3752 2052 Microbiology Past 72 Hours 02/26/19 15:15 Gram Stain - Final Fluid - Other Body Fluid Culture - Final Streptococcus group C Anaerobic Culture - Preliminary Checking for anaerobes, further studies to follow. 02/25/19 16:00 Enteric Bacteriology - Final Stool 02/25/19 20:20 C. difficile DNA Amplification - Final Stool 02/25/19 20:20 Stool Lactoferrin - Final Stool Laboratory Tests Past 24 Hrs 02/28/19 02/28/19 05:50 05:50 WBC 7.5 RBC 4.23 Hgb 12.9 Hct 39.6 MCV 93.6 MCH 30.5 MCHC 32.6 RDW 13.2 RDW Differential 43.8 Plt Count 192 MPV 9.7 Immature Gran % (Auto) 0.100 Neut % (Auto) 66.9 Lymph % (Auto) 22.7 [place] % (Auto) 8.1 Eos % (Auto) 1.9 Baso % (Auto) 0.3 Absolute Neuts (auto) 5.0 Absolute Lymphs (auto) 1.71 Total Counted Not Reportable Sodium 143 Potassium 3.9 Chloride 107 Carbon Dioxide 30.0 Anion Gap 6 BUN 6 L Creatinine 0.76 Estim Creat Clear Calc 67.13 Est GFR (MDRD) Af Amer 100 Est GFR (MDRD) Non-Af 82 BUN/Creatinine Ratio 7.9 L Glucose 96 Calcium 8.6 Medical Necessity - Tobacco Use Smoking Status: Current every day smoker Tobacco Use: Cigarettes Assessment/Plan seemingly stable until now slightly enlarged pelvic cystic structure questionable cervical cyst, hematochezia, leukocytosis-third episode the patient is being admitted to the medicine service and was started on Cipro and Flagyl. This sounds like his third episode of leukocytosis pain and bloody diarrhea. This ascending more consistent with inflammatory bowel disease. I would plan to perform an unprepped colonoscopy or if she is feeling better in the morning try a gentle prep of Naa lax and Gatorade and attempt colonoscopy later in the day. Stool cultures are currently pending. pelvic cystic structure in the cul-de-sac seems larger than 3 months previously. There was apparently no obvious intra-abdominal mass in the cul-de-sac on laparoscopy. I ultrasound, the cystic mass seems approximately the size previously noted. Would consider gynecology evaluation to assess cervical cyst versus attempted aspiration to assess contents of the cyst as an abscess was considered. pigtail drain placed by interventional radiology. Culture returned as staphylococcal group C. Patient currently on antibiotics. Clinically, diverticulitis should present as an infection or a diverticular bleed but not both. I would therefore be more inclined to believe this is recurrent colitis and that the cyst if there is grown or is not necessarily related to recurrent bleeding and pain episodes. I initially stool culture returned as positive for shiga toxin. Repeat test demonstrated no positive stool cultures-negative C. difficile, negative enteric pathogens. Fecal leukocytes were positive. initially planned for bowel prep this morning and colonoscopy later in the afternoon but then plan for drainage of abscess and CT scan which otherwise could not be done until Sunday was felt to be more clinically necessary. bowel prep was performed yesterday. Patient was taken for attempted colonoscopy. Again due to tortuosity was able to advance the scope beyond 40 cm. Few diverticula were noted. The mucosa appeared unremarkable. There was no signs of blood. Postprocedure barium enema was a ordered but could not be obtained due to over scheduling. I'm comfortable with the patient and discharged home on antibiotics with plans for follow-up in my office next week will most likely consider referral to GI for endoscopy versus outpatient barium enema
--- NOTE | 2019-02-28 17:37 | PCM.DC ---
You will use the following diet at home:: Other - low residue Your food should be the consistency of: Regular Your liquids should be the consistency of: Regular/Thin Call your doctor if you observe: Fever of 101 or Higher, Inability to have a bowel movement, Shortness of breath, Dizziness, Uncontrolled pain, - - Recurrent bloody diarrhea Call your PCP if severe diarrhea ( > 5 stools a day), painful sores in the mouth, painful swallowing, rash or itching. Taking a probiotic such as Lactobacillus or Kefir can help with loose stools while taking antibiotics. Additional Instructions: I can not give you a prescription to obtain an out patient CT of the abdomen because I am not your PCP. you can follow up with Dr. mccall next week or you can follow up with your PCP to arrange for an OP CT. I suggest you see Dr. Mccall because he can pull the drain if the fluid collection has resolved. Allergies/Adverse Reactions: Allergies Latex, Natural Rubber Allergy (Verified 02/25/19 07:05) Rash Penicillins Allergy (Verified 02/25/19 07:05) Rash Medications to take at Discharge Lisinopril/Hydrochlorothiazide [Zestoretic 20-12.5 mg Tablet] 1 ea PO DAILY #30 tab 04/14/18 Omeprazole [Prilosec] 40 mg PO DAILY 04/24/18 Albuterol Inhaler [Ventolin Hfa] 2 puff INHALATION Q4H PRN PRN 05/14/18 Simvastatin [Zocor] 40 mg PO QHS 06/22/18 Dicyclomine HCl [Bentyl] 20 mg PO Q6H PRN PRN #20 capsule 11/09/18 Docusate Sodium [Colace] 1 cap PO BID 02/25/19 Levofloxacin [Levaquin] 500 mg PO DAILY #6 tab 02/28/19 Metronidazole [Flagyl] 500 mg PO TID #18 tab 02/28/19 The following prescriptions were given: Metronidazole [Flagyl] 500 mg PO TID #18 tab Transmission Status: Pending to [facility] #30 Levofloxacin [Levaquin] 500 mg PO DAILY #6 tab Transmission Status: Pending to [facility] Primary Care Physician: Gloria Sheridan MD [Primary Care Provider] - Please follow up with your Primary Care Physician in: next week Test Results: Test results from this visit will be discussed in further detail at your follow-up appointment, if applicable. Please Follow Up With: Ced Mccall MD When: next week Proposed Discharge Date: 02/28/19
--- NOTE | 2019-02-28 17:44 | PCM.DC.SUM ---
Discharge Date and Diagnosis - Problem List Patient Problems: Active and Suspected Problems (Last Reviewed 02/25/19 @ 06:26 by Manolo Oakley MD) Pelvic abscess (Acute) Date of Admission: 02/25/19 Date of Discharge: 02/28/19 - Primary Discharge Diagnosis Active and Suspected Problems (Last Reviewed 02/25/19 @ 06:26 by Manolo Oakley MD) Pelvic abscess (Acute)-due to group C strep. Final culture still pending at the time she left AGAINST MEDICAL ADVICE Placement of drain into the pelvic abscess by interventional radiology [place] PreDiabetes] bloody diarrhea - etiology unknown Hypokalemia - Secondary Discharge Diagnosis Chronic Problems (Last Reviewed 02/25/19 @ 06:26 by Manolo Oakley MD) HTN (hypertension) (Chronic) Colitis recurrent GERD (gastroesophageal reflux disease) (Chronic) HLD (hyperlipidemia) (Chronic) Insomnia (Chronic) Diverticulosis (Chronic) PTSD obesity Hospital Course and Treatment Imaging Results: Clinical Impression(s) from Imaging Studies Abdomen/Pelvis CT 02/25/19 02:41 IMPRESSION: There is chronic diverticular disease involving the cerebral with a well-circumscribed 6.5 x 4.0 x 5.1 cm cystic mass with a speck of air within its superior end. An abscess pocket is suspected. A benign lytic and right adrenal mass. A small umbilical hernia. N.B. : The above information has been verbally conveyed by Gianluca Garsia MD to Mal Poe MD, on 02/25/2019 05:51:51 (ET). Electronically Signed: Gianluca Garsia MD at 5:01 EDT Tel , Service support , ADDENDUM: 02/25/19 1128 IMPRESSION: There is chronic diverticular disease involving the cerebral with a well-circumscribed 6.5 x 4.0 x 5.1 cm cystic mass with a speck of air within its superior end. An abscess pocket is suspected. A benign lytic and right adrenal mass. A small umbilical hernia. N.B. : The above information has been verbally conveyed by Gianluca Garsia MD to Mal Poe MD, on 02/25/2019 05:51:51 (ET). Electronically Signed: Gianluca Garsia MD at 5:01 EDT Tel , Service support , Chest X-Ray 02/25/19 09:20 IMPRESSION: Findings suggest a mild degree of right basilar atelectasis and a small hiatal hernia. Electronically Signed: Richard Ndiaye, at 15:18 EDT , Service support , Transvaginal US 02/25/19 09:26 IMPRESSION: 4.9 cm x 4.7 cm x 3.3 cm complex fluid collection in the posterior cul-de-sac. This may represent either hemorrhagic collection or abscess collection. Electronically Signed: Richard Ndiaye, at 11:48 EDT , Service support , Abscess Drainage CT 02/26/19 13:00 IMPRESSION: 1. CT directed drainage of a fluid collection using CT image guidance and image documentation as described. 2. Conscious Sedation protocol utilized with independent monitoring Electronically Signed: Richard Ndiaye, at 15:31 EDT , Service support , Laboratory Results - last 24 hr 02/28/19 02/28/19 05:50 05:50 WBC 7.5 RBC 4.23 Hgb 12.9 Hct 39.6 MCV 93.6 MCH 30.5 MCHC 32.6 RDW 13.2 RDW Differential 43.8 Plt Count 192 MPV 9.7 Immature Gran % (Auto) 0.100 Neut % (Auto) 66.9 Lymph % (Auto) 22.7 [place] % (Auto) 8.1 Eos % (Auto) 1.9 Baso % (Auto) 0.3 Absolute Neuts (auto) 5.0 Absolute Lymphs (auto) 1.71 Total Counted Not Reportable Sodium 143 Potassium 3.9 Chloride 107 Carbon Dioxide 30.0 Anion Gap 6 BUN 6 L Creatinine 0.76 Estim Creat Clear Calc 67.13 Est GFR (MDRD) Af Amer 100 Est GFR (MDRD) Non-Af 82 BUN/Creatinine Ratio 7.9 L Glucose 96 Calcium 8.6 Microbiology 02/26/19 15:15 Fluid - Other Gram Stain - Final 02/26/19 15:15 Fluid - Other Body Fluid Culture - Final Streptococcus group C 02/26/19 15:15 Fluid - Other Anaerobic Culture - Preliminary Checking for anaerobes, further studies to follow. 02/25/19 16:00 Stool Enteric Bacteriology - Final 02/25/19 20:20 Stool C. difficile DNA Amplification - Final 02/25/19 20:20 Stool Stool Lactoferrin - Final Dr. Ced Mccall[facility] general surgery Dr. Angelica Mccullough-gynecology Operations: None Procedures: Colonoscopy - Impressions : - Diverticulosis in the sigmoid colon. - The distal rectum and anal verge are normal on retroflexion view. - No specimens collected., - - placement of drain in pelvic abscess by Dr. Ndiaye Summary of Care Provided: The patient is a 59YO female with a past medical history of hypertension, suspected infectious colitis in May 2018, GERD, hyperlipidemia, insomnia and diverticulosis. She presented to the emergency department at [facility] on 02/25/2019 complaining of severe left-sided abdominal pain radiating into the low back and suprapubic area. This was associated with nausea. She reported having multiple loose stools with blood in it. Vital signs at presentation to the emergency room were temp 97.6, pulse rate 69, blood pressure 96/45, respiratory rate 22 and she was 96% saturated on room air. The white blood cell count was 17.1 with left shift. Hemoglobin was 16.2 with normochromic normocytic indices and the platelets were within normal limits. Potassium was low at 3.2 and the BUN was elevated at 30 with a creatinine of 1.36, creat in May [address] scan of the abdomen and pelvis without oral contrast showed chronic sigmoid diverticular disease with a well-circumscribed 6.5 x 4.0 x 5.1 cm cystic mass with a small speck of air in its superior aspect? Not sure where this cystic mass s....I could not visualize and Dr. Mccall did not see either. Enteric pathogen panel was negative. Fecal leukocytes were positive. Ova and parasites are still pending. C. difficile was negative. ESR was normal at 16 and the CRP was mildly increased at 19.5. There was also a cystic mass posterior to the cervix which had increased in size from 3.2 cm to 5.1 cm when compared to an ultrasound done of the pelvis in March 2018. She saw Stella Faith in March [address] Shayne Dunn however, She was referred to [facility] and apparently had a BL oophorectomy and the ovaries were benign. There was no comment made on a pelvic abscess at that time. Dr. Ndiaye was consulted for a CT guided drainage of the reported abscess in the sigmoid or adjacent to the sigmoid but he requested a vaginal US because he felt the abscess was posterior to the cervix and not related to the sigmoid colon. He ultimately inserted a drain in the pelvic abscess posterior to the cervix on 02/26/2019. Approximately 35 cc of purulent looking material was aspirated. Preliminary results on the culture of the abscess fluid is group C strep with anaerobic culture still pending. She is allergic to PCN and Cipro was changed to Levaquin for better Strep coverage. Flagyl was continued. On 02/28 she was taken for colonoscopy by Dr. Mccall. He was unable to reach the cecum but did find diverticulosis in the sigmoid colon. The distal rectum and anal verge were normal on retroflexion view. No specimens were collected. He recommended continuing Levaquin and Flagyl since the diarrhea resolved with antibiotics. She was to have a repeat CT of the abd and pelvis on 03/01 with oral and IV contrast but, she elected to leave [place]. I did supply her with prescriptions for Levaquin and Flagyl to complete 10 days of treatment. She will have to follow up with either Dr. Mccall or Dr. Sheridan to arrange for an OP repeat CT scan with oral and IV contrast. The DC in the bulb suction was clear and appeared serosanguineous on the the day of DC. I recommended she follow up with Dr. Mccall since he can remove the drain if indicated. PHYSICAL EXAM: GENERAL: alert, oriented X 3, NAD, ambulating in the halls, histrionic ORAL: moist mucosa, no mucosal lesions NECK: No JVD, supple, trachea midline LUNGS: CTA, symmetric chest expansion HEART: RRR, Normal S1 and S2, no rub, no gallop ABDOMEN: soft, NT, ND, BS present, no guarding with palpation EXTREMITIES: no edema, no cyanosis, no calf tenderness SKIN: No rashes, no breakdown NEUROLOGIC: no focal neurologic deficits PSYCH: loud and histrionic at times. This note was generated with [employer] dictation software. It may contain incorrect words, spelling, and punctuation that were not noted in checking the note before signing. Patient Problems: Active and Suspected Problems (Last Reviewed 02/25/19 @ 06:26 by Manolo Oakley MD) Pelvic abscess (Acute) - Physical Exam Vital Signs Temp Pulse Resp BP Pulse Ox 98.8 F 61 18 126/48 H 94 02/28/19 14:44 02/28/19 14:44 02/28/19 14:44 02/28/19 14:44 02/28/19 14:44 Oxygen Delivery Method [4] Room Air Oxygen Delivery Method [3] Room Air Oxygen Delivery Method [2] Room Air Oxygen Delivery Method [1 ( Room Air Initial Baseline)] Oxygen Delivery Method Room Air Weight: 215 lb 9.793 oz Body Mass Index (BMI) 37.0 Intake and Output for Last 24 Hours 02/26/19 02/27/19 02/28/19 23:59 23:59 23:59 Intake Total 3338 / 3338 6080 / 6080 2663 / 2663 Output Total 900 / 900 2328 / 2328 Balance 2438 / 2438 3752 / 3752 2663 / 2663 Microbiology Past 72 Hours 02/26/19 15:15 Gram Stain - Final Fluid - Other Body Fluid Culture - Final Streptococcus group C Anaerobic Culture - Preliminary Checking for anaerobes, further studies to follow. 02/25/19 16:00 Enteric Bacteriology - Final Stool 02/25/19 20:20 C. difficile DNA Amplification - Final Stool 02/25/19 20:20 Stool Lactoferrin - Final Stool Laboratory Tests Past 24 Hrs 02/28/19 02/28/19 05:50 05:50 WBC 7.5 RBC 4.23 Hgb 12.9 Hct 39.6 MCV 93.6 MCH 30.5 MCHC 32.6 RDW 13.2 RDW Differential 43.8 Plt Count 192 MPV 9.7 Immature Gran % (Auto) 0.100 Neut % (Auto) 66.9 Lymph % (Auto) 22.7 [place] % (Auto) 8.1 Eos % (Auto) 1.9 Baso % (Auto) 0.3 Absolute Neuts (auto) 5.0 Absolute Lymphs (auto) 1.71 Total Counted Not Reportable Sodium 143 Potassium 3.9 Chloride 107 Carbon Dioxide 30.0 Anion Gap 6 BUN 6 L Creatinine 0.76 Estim Creat Clear Calc 67.13 Est GFR (MDRD) Af Amer 100 Est GFR (MDRD) Non-Af 82 BUN/Creatinine Ratio 7.9 L Glucose 96 Calcium 8.6 Call your doctor if you observe: Fever of 101 or Higher, Inability to have a bowel movement, Shortness of breath, Dizziness, Uncontrolled pain, - - Recurrent bloody diarrhea Call your PCP if severe diarrhea ( > 5 stools a day), painful sores in the mouth, painful swallowing, rash or itching. Taking a probiotic such as Lactobacillus or Kefir can help with loose stools while taking antibiotics. Home Medications: Medications to take at Discharge Lisinopril/Hydrochlorothiazide [Zestoretic 20-12.5 mg Tablet] 1 ea PO DAILY #30 tab 04/14/18 Omeprazole [Prilosec] 40 mg PO DAILY 04/24/18 Albuterol Inhaler [Ventolin Hfa] 2 puff INHALATION Q4H PRN PRN 05/14/18 Simvastatin [Zocor] 40 mg PO QHS 06/22/18 Dicyclomine HCl [Bentyl] 20 mg PO Q6H PRN PRN #20 capsule 11/09/18 Docusate Sodium [Colace] 1 cap PO BID 02/25/19 Levofloxacin [Levaquin] 500 mg PO DAILY #6 tab 02/28/19 Metronidazole [Flagyl] 500 mg PO TID #18 tab 02/28/19 Following Prescrptions Were Given to Patient: Metronidazole [Flagyl] 500 mg PO TID #18 tab Transmission Status: Pending to [facility] #30 Levofloxacin [Levaquin] 500 mg PO DAILY #6 tab Transmission Status: Pending to [facility] #[facility] Primary Care Physician: Gloria Sheridan MD [Primary Care Provider] - Please follow up with your Primary Care Physician in: next week Please Follow Up With: Ced Mccall MD When: next week Disposition: Against Medical Advice Minutes spent on discharge:: 30 Patient Condition:: Stable Medical Necessity - Tobacco Use Smoking Status: Current every day smoker Tobacco Use: Cigarettes Meaningful Use Info Meaningful Use Diagnoses (Choose all that apply): None applicable Code Visit Inpatient E&M: 08580 Disch Hosp
--- NOTE | 2019-02-28 17:45 | NURSING ---
Patient stating she wants to leave. Throwing phone around room. States she has bills to pay. Educated her on the importance of staying due to the SONIA drain in place and need for antibiotics. States she just cannot stay here any long and she has things to get done. AMA paperwork explained. Dr. Rodriguez notified. Dr. Rodriguez decided to discharge patient with antibiotics. Patient calling to find a ride home.
[2019-02-28] MEDS: ALPRAZolam 0.25 MG Tablet PO (18:00)
== END 2019-02-28 19:15 | disposition left against medical advice (07) | DRG 758 ==
LOC: ED 06:11 → PCU 06:37 → MS3 02-27 17:41
PROVIDERS: Physician Assistant; Surgery; Admitting Provider Hospitalist; Emergency Provider Emergency Medicine; Family Provider Internal Medicine; PCP Internal Medicine; Visit Provider Internal Medicine
PROC: 0DJD8ZZ Inspection of Lower Intestinal Tract, Via Natural or Artificial Opening Endoscopic (ICD-10-PCS; CPT 45378; principal; 2019-02-28 06:55)
DX: N73.0 Acute parametritis and pelvic cellulitis (principal); N17.9 Acute kidney failure, unspecified; J45.909 Unspecified asthma, uncomplicated; F17.210 Nicotine dependence, cigarettes, uncomplicated; R73.03 Prediabetes; E87.6 Hypokalemia; I10 Essential (primary) hypertension; K21.9 Gastro-esophageal reflux disease without esophagitis; E66.9 Obesity, unspecified; F43.10 Post-traumatic stress disorder, unspecified; E78.5 Hyperlipidemia, unspecified; G47.00 Insomnia, unspecified; R19.7 Diarrhea, unspecified; K52.9 Noninfective gastroenteritis and colitis, unspecified; K57.30 Diverticulosis of large intestine without perforation or abscess without bleeding; Z88.0 Allergy status to penicillin; B95.4 Other streptococcus as the cause of diseases classified elsewhere; Z68.37 Body mass index [BMI] 37.0-37.9, adult
CPT/HCPCS: 36415; 71046; 74177; 75989; 76830; 80048; 80053; 81001; 83036; 83605; 83630; 83690; 83735; 84100; 85014; 85018; 85025; 85610; 85652; 86140; 87070; 87075; 87077; 87177; 87205; 87209; 87493; 87506; 88108; 88305; 88312; 88313; 93005; 94640; 97803; 99156; 99285; J7030; J7040; J7120; Q9967; A4216; J0744; J2405

== ENCOUNTER → 2019-03-07 | Outpatient (CLI) | payer MEDICARE, SELFPAY ==
[2019-02-25 07:02] VITALS: BMI 37.0
--- NOTE | 2019-03-07 09:24 | RAD_ITS ---
STUDY: X-RAY - ABDOMEN/PELVIS REASON FOR EXAM: Female, 59 years old. 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 TECHNIQUE: Single AP view of the abdomen / pelvis. COMPARISON: None. FINDINGS: A refractory technician film was obtained. A drainage catheter is seen in the right hemipelvis. A moderate amount of fecal material is seen throughout the colon. Further cleansing is required. RAD/Abdomen Single View IMPRESSION: Residual fecal material precluding barium enema. The barium enema will be re-scheduled following further bowel prep. Electronically Signed: Richard Ndiaye, at 12:36 EDT , Service support ,
== END | disposition home or self-care (01) ==
LOC: RAD 09:22
PROVIDERS: Family Provider Internal Medicine; PCP Internal Medicine; Referring Provider Surgery; Visit Provider Surgery
DX: Z53.9 Procedure and treatment not carried out, unspecified reason (principal)
CPT/HCPCS: 74018

== ENCOUNTER → 2019-03-12 | Outpatient (CLI) | payer MEDICARE, SELFPAY ==
[2019-02-25 07:02] VITALS: BMI 37.0
--- NOTE | 2019-03-12 09:10 | RAD_ITS ---
STUDY: X-RAY - ABDOMEN/PELVIS REASON FOR EXAM: Female, 59 years old. 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 TECHNIQUE: Single AP view of the abdomen / pelvis. COMPARISON: Comparison is made with prior examination dated March 07, 2019. FINDINGS: Residual fecal material is seen in the rectosigmoid colon. Further operation is recommended for barium enema. Stable appearance of the right percutaneous catheter in the pelvis. RAD/Abdomen Single View IMPRESSION: Residual fecal material in the rectosigmoid colon. Further bowel prep is recommended for barium enema. Electronically Signed: Richard Ndiaye, at 12:38 EDT , Service support ,
== END | disposition home or self-care (01) ==
LOC: RAD 08:58
PROVIDERS: Family Provider Internal Medicine; PCP Internal Medicine; Referring Provider Surgery; Visit Provider Surgery
DX: A49.8 Other bacterial infections of unspecified site (principal); Z53.9 Procedure and treatment not carried out, unspecified reason
CPT/HCPCS: 74018

== ENCOUNTER 2019-04-18 04:25 | Inpatient (IN) | payer MEDICARE, SELFPAY ==
[2019-02-25 07:02] VITALS: BMI 37.0
[2019-04-18] VITALS (9 sets, daily range): BP systolic 112–153; BP diastolic 53–85; PULSE 63–87; RESP 18–22; TEMP 36–37.3; O2SAT 93–98; BMI 36.8; BMI 36.3; BMI 36.4
--- NOTE | 2019-04-18 04:39 | CT_ITS ---
HISTORY: CONSTIPATION, LOW BACK PAIN, RECTUM AND VAGINAl PAIN X 1 DAY, HX PELVIC ABSCESS, OOPHRECTOMY, HERNIA REPAIR, ADRENAL MASS, HTN EXAMINATION: CT Abdomen And Pelvis W/ Contrast TECHNIQUE: Helically acquired images were obtained of the abdomen and pelvis following IV contrast. A radiation dose optimization technique was used for this scan. IV Contrast dosage and agent: 100ML Isovue 300 Oral contrast: None. COMPARISON: 02/25/2019 and 05/14/2018 FINDINGS: Lower thorax: Clear. No pleural effusion or pericardial effusion. Normal liver, spleen, pancreas, gallbladder, and biliary system. Both kidneys are normal in position. Bilateral renal opacification without evidence of hydronephrosis, pyelonephritis, or suspicious renal lesion. 3 x 1 mm calyceal stone, lower pole of the left kidney. Right adrenal stable 4.3 cm circumscribed low density lesion. Normal left adrenal. Atherosclerotic abdominal aorta with a stable infrarenal 2.7 cm fusiform aneurysm. Aneurysm shows considerable mural thrombus together with calcified plaque salting and high-grade aortic stenosis. 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 Diverticulosis coli. Pelvis: The posterior cul-de-sac shows an oval circumscribed fluid collection with fluid level in keeping with residual or recurrent abscess measuring approximately 7 x 3 x 4 cm. Previous abscess drainage at this locale. The abscess lies posterior to the uterus and anterior to the rectum. No pneumoperitoneum. No significant free pelvic fluid. Ventral abdominal Wall: 4 cm fat-containing umbilical hernia. CT/Abdomen/Pelvis W IV Cont ONLY IMPRESSION: 1. Posterior cul-de-sac residual or recurrent 7 x 3 cm abscess with air-fluid level. 2. Diverticulosis coli. No pneumoperitoneum or free fluid. 3. 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 The aortoiliac findings appear unchanged. 4. Additional chronic findings include stable right adrenal lesion and fat-containing umbilical hernia. Individualized dose optimization techniques were used for this CT. at 0604 Reported and signed by: Ray Corral MD Electronically Signed: Ray Corral, at 6:02 EDT Tel , Service support ,
--- NOTE | 2019-04-18 04:40 | ED.VIS.GEN ---
History of Present Illness Chief Complaint: Abd Pain Informant: Patient Narrative: Stated for the last 2 days she has had some lower abdominal pain. It radiates into her back and into her rectal region. She does have a history of diverticular abscess as well as colitis. She is unsure if this is the cause or she does has to have a BM. Her last normal bowel movement was 2 days ago. She is passing gas. In February of this year she had to have an abscess drained. No fevers or chills. No nausea or vomiting. She is been using Tylenol. Current severity is moderate. - Past Medical History (1) Pelvic abscess Status: Acute (2) Colitis Status: Chronic (3) Diverticulosis Status: Chronic (4) GERD (gastroesophageal reflux disease) Status: Chronic (5) HLD (hyperlipidemia) Status: Chronic (6) HTN (hypertension) Status: Chronic (7) Insomnia Status: Chronic (8) Diarrhea Status: Resolved (9) Hematochezia Status: Resolved Past Medical History - Allergies and Home Meds Allergies/Adverse Reactions: Allergies Latex, Natural Rubber Allergy (Verified 04/18/19 05:02) Rash Penicillins Allergy (Verified 04/18/19 05:02) Rash Primary Care Physician: Gloria Sheridan MD [Primary Care Provider] - Prior records reviewed: Yes Past Medical History: - - See problem list, reviewed Surgical History: - - bilateral [id number] 10, 2018- [facility] Smoking Status: Current every day smoker Alcohol: None Drugs: None - Family History Maternal Family History: Reports: Diabetes, Heart Disease Review of Systems General: Denies: Chills, Fever, Sweats Eyes: Denies: Visual changes - bilaterally, Diplopia ENT: Denies: Rhinorrhea, Sore throat Cardiovascular: Denies: Chest pain, Palpitations Respiratory: Denies: Dyspnea, Cough, Dyspnea on exertion Gastrointestinal: Reports: Abdominal pain, Nausea, Constipation. Denies: Vomiting, Diarrhea, Melena, Hematochezia Genitourinary: Denies: Dysuria, Hematuria, Frequency Musculoskeletal: Reports: Back pain. Denies: Extremity Pain Skin: Denies: Rash, Wounds Neurological: Denies: Headache, Weakness, Numbness Physical Exam Vital Signs/Narrative: Vital Signs Temp Pulse Resp BP Pulse Ox 04/18/19 04:25 96.8 F L 87 22 H 146/85 H 96 General: Well nourished, Well developed, No Acute Distress Head: Normocephalic, Atraumatic Eyes: Perrl, EOMI ENT: Moist mucous membranes, No rhinorrhea Neck: Supple, Nontender Cardiovascular: Regular rate, Regular rhythm, No murmurs Respiratory: No distress, CTA bilaterally, Chest nontender Abdomen: Soft, Nondistended, Normal bowel sounds, Tender - Tender lower abdomen diffusely. Negative for: Nontender Back: Nontender, Normal Inspection Extremities: Nontender, No edema Skin: Normal color, No rash Neurological: Alert, Oriented x3, Cranial nerves II-XII grossly intact, Normal Strength, Normal Sensation Psychological: Normal affect, Normal Mood Diagnostic/Tx/Re-eval - Medical Decision Making Given IV fluids Zofran morphine. Lab work CT abdomen pelvis with IV contrast obtained. Work shows a white count of 19,000. Positive left shift. CT abdomen pelvis shows a recurrent abscess in the cul-de-sac. She had this drained last month. She had a drain in for a week and was removed by Dr. Ndiaye with surgery. She recovered well and it returned. She was given Cipro and Flagyl and will be admitted. Spoke to Dr. Waldron. He feels this is not general surgical nature. He did do a colonoscopy and found no inflammation to her diverticuli. He feels this is related to her uterus or cervix. She has a history of bilateral salpingo-oophorectomy last year. This was done in [place]. Does not have a current BUSINESS OBJECTS ANALYST locally. Of note the patient does have a chronic aortic aneurysm 2.7 cm with complete chronic occlusion of the iliacs ED Disposition - Plan for ED Patient: Disposition: Psychiatric Hospital or Unit Diagnosis: Pelvic abscess in female Referrals: Gloria Sheridan MD [Primary Care Provider] -
[2019-04-18 04:46] LABS: Absolute Lymphocyte Count 4.15 X10^3/uL (0.83-4.51); Absolute Neutrophil Count 13.6 X10^3/uL (2.0-7.7); Basophil# 0.07 X10^3/uL; Basophil% 0.4 % (0-1); Eosinophil# 0.04 X10^3/uL; Eosinophils% 0.2 % (0-5); Hematocrit 44.7 % (37-47); Hemoglobin 15.3 g/dL (12.0-15.0); Lymphocyte # 4.15 X10^3/ul (4.0); Lymphocyte % 21.4 % (19-41); Mean Corp Hgb Conc 34.2 g/dL (32-36); Mean Corpuscular Hgb 31.8 pg (27.0-32.0); Mean Corpuscular Volume 92.9 fL (81-99); Mean Platelet Vol. 10.2 fl (6.2-12.0); Monocyte# 1.41 X10^3/uL; Monocyte% 7.3 % (0-10); NRBC Flagged by Analyzer 0 % (0-5); Neutrophil # 13.64 X10^3/uL (2.7-7.7); Neutrophil % 70.1 % (47-70); Platelet Count 236 K/mm3 (150-450); RBC Distribution Width CV 12.8 % (11.6-14.6); Red Blood Count 4.81 M/mm3 (4.2-5.4); White Blood Count 19.4 K/mm3 (4.4-11.0)
[2019-04-18] MEDS: Morphine 4 MG/ML Syringe IV (04:46)
[2019-04-18] MEDS: Ondansetron 4 MG/2 ML Vial IV (04:46)
[2019-04-18] MEDS: 0.9% Normal Saline 1,000 ML 1000 ML IV (04:46)
[2019-04-18 04:56] LABS: Anion Gap 7 (5-15); BUN 12 mg/dL (7-18); BUN/Creat Ratio 16.6 RATIO (10-20); Calcium,Total 9.7 mg/dL (8.5-10.1); Chloride 104 mmol/L (98-107); Creatinine, Serum 0.72 mg/dL (0.55-1.02); EST Glomerular Filtration Rate 87 mL/min (>60); Est Glom Filt Rate - Afr Amer 105 mL/min (>60); Estimated Creatinine Clearance 70.85 ml/min; Glucose 132 mg/dL (74-106); Sodium Level 138 mmol/L (136-145)
[2019-04-18 05:54] LABS: Bacteria 0 SEEN /hpf (None Seen); Red Blood Cells-Urine 0 SEEN /hpf (0-5); White Blood Cells 0 SEEN /hpf (0-5)
[2019-04-18 06:03] LABS: Color, Urine Yellow (Yellow); Glucose, Dipstick Normal (Normal); Ketone-Dipstick Negative (Negative); Leukocyte Esterase-Dipstick Negative /ul (Negative); Nitrite-Dipstick Negative (Negative); Occult Blood-Urine Negative /ul (Negative); Protein-Dipstick Negative (Negative); Specific Gravity, Urine 1.005 (1.002-1.030); Urine Bilirubin Dipstick Negative (Negative); Urine Clarity Clear (Clear); Urine Urobilinogen Normal (Normal)
[2019-04-18 06:09] LABS: Squamous Epithelial Cells - UA 0-5 SEEN /hpf (5-10)
--- NOTE | 2019-04-18 06:14 | ED.RN ---
HOSPITALIST PAGED FOR DR BOJORQUEZ
--- NOTE | 2019-04-18 06:19 | HP.PCM_ITS ---
History of Present Illness The patient is a 59 year old F [] Past Medical History Past Medical History (Chronic Problems): Chronic Problems (Last Reviewed 02/25/19 @ 06:26 by Manolo Oakley MD) HTN (hypertension) (Chronic) Colitis (Chronic) GERD (gastroesophageal reflux disease) (Chronic) HLD (hyperlipidemia) (Chronic) Insomnia (Chronic) Diverticulosis (Chronic) Medical History: Medical History (Last Reviewed 02/25/19 @ 06:26 by Manolo Oakley MD) Anxiety F41.9 Depression F32.9 History of high cholesterol Z86.39 PTSD (post-traumatic stress disorder) F43.10 Allergies Latex, Natural Rubber Allergy (Verified 04/18/19 05:02) Rash Penicillins Allergy (Verified 04/18/19 05:02) Rash Home Medications: Ambulatory Orders Medication Instructions Recorded Lisinopril/Hydrochlorothiazide 1 ea PO DAILY #30 tab 04/14/18 [Zestoretic 20-12.5 mg Tablet] Omeprazole [Prilosec] 40 mg PO DAILY 04/24/18 Albuterol Inhaler [Ventolin Hfa] 2 puff INHALATION Q4H PRN PRN 05/14/18 Simvastatin [Zocor] 40 mg PO QHS 06/22/18 Docusate Sodium [Colace] 1 cap PO BID 02/25/19 Acetaminophen [Tylenol Extra 500 mg PO Q6H PRN PRN 04/18/19 Strength] Baclofen 10 mg PO TID PRN 04/18/19 Buspirone HCl 10 mg PO TID 04/18/19 Dicyclomine HCl [Bentyl] 10 mg PO Q6H PRN PRN 04/18/19 Gabapentin [Neurontin] 300 mg PO DAILY 04/18/19 Meloxicam [Mobic] 15 mg PO DAILY 04/18/19 Polyethylene Glycol 3350 [Miralax] 17 gm PO DAILY 04/18/19 Varenicline Tartrate [Chantix] 1 mg PO BID 04/18/19 Surgical History: Surgical History (Last Reviewed 02/25/19 @ 06:26 by Manolo Oakley MD) H/O tubal ligation Z98.51 History of section, classical Z98.891 Surgical History: - - bilateral fbozdmbk-agsniyruvpra-Ycwmnxpgo 10, [facility] Smoking Status: Current every day smoker Alcohol: None Drugs: None - *Family History Maternal History Items: Diabetes, Heart Disease - Physical Exam Vital Signs Temp Pulse Resp BP Pulse Ox 96.8 F L 87 22 H 146/85 H 96 04/18/19 04:25 04/18/19 04:25 04/18/19 04:25 04/18/19 04:25 04/18/19 04:25 Oxygen Delivery Method Room Air Weight: 97.2 kg Body Mass Index (BMI) 36.8 Laboratory Tests Past 24 Hrs 04/18/19 04/18/19 04/18/19 04:25 04:25 05:45 WBC 19.4 H RBC 4.81 Hgb 15.3 H Hct 44.7 MCV 92.9 MCH 31.8 MCHC 34.2 RDW Std Deviation 44.0 H RDW Coeff of Lola 12.8 Plt Count 236 MPV 10.2 Immature Gran % (Auto) 0.600 Neut % (Auto) 70.1 H Lymph % (Auto) 21.4 [place] % (Auto) 7.3 Eos % (Auto) 0.2 Baso % (Auto) 0.4 Absolute Neuts (auto) 13.6 H Absolute Lymphs (auto) 4.15 Nucleated RBC % 0 Sodium 138 Potassium 4.0 Chloride 104 Carbon Dioxide 27.0 Anion Gap 7 BUN 12 Creatinine 0.72 Estim Creat Clear Calc 70.85 Est GFR (MDRD) Af Amer 105 Est GFR (MDRD) Non-Af 87 BUN/Creatinine Ratio 16.6 Glucose 132 H Calcium 9.7 Urine Color Yellow Urine Clarity Clear Urine pH 7.0 Ur Specific [place] 1.005 Urine Protein Negative Urine Glucose (UA) Normal Urine Ketones Negative Urine Occult Blood Negative Urine Nitrite Negative Urine Bilirubin Negative Urine Urobilinogen Normal Ur Leukocyte Esterase Negative Urine RBC 0 SEEN Urine WBC 0 SEEN Ur Squamous Epith Cells 0-5 SEEN Urine Bacteria 0 SEEN Urine Mucus Not Reportable Assessment/Plan All Active Problems (Last Reviewed 02/25/19 @ 06:26 by Manolo Oakley MD) Diarrhea (Resolved) Hematochezia (Resolved) Pelvic abscess (Acute)
[2019-04-18] MEDS: Ciprofloxacin 400 MG/200 ML BAG 200 MG IV ×2 (06:22→22:22)
--- NOTE | 2019-04-18 06:27 | ED.RN ---
DR [address] FOR DR BOJORQUEZ
--- NOTE | 2019-04-18 08:08 | HP.PCM_ITS ---
Problem List (1) Sepsis Status: Acute (2) Pelvic abscess in female Status: Acute History of Present Illness Date of Admission: 04/18/19 Chief Complaint: back and abdominal pain The patient is a 59 year old F presents with a several week history of back pain. Over the past couple days, it has been gotten worse and also pain in her suprapubic region. Patient was seen and February and had a pelvic abscess at that t mayra which was aspirated and had a drain throughout group C strep. Patient said that she had drainage for a few weeks but left AGAINST MEDICAL ADVICE during hospitalization because she said she had to pay bills at home. When she presented the last time she had more left-sided abdominal pain associated with her diverticulitis that she initially presented with. She was suddenly found to have a pelvic abscess which led to the time. Dr. Alegre, of general surgery, was contacted and he anoscopy did not feel that the abscess was GI related. He recommended again evaluation. Dr. Montalvo was contacted and said that she would see the patient in consultation [] Past Medical History Past Medical History (Chronic Problems): Chronic Problems (Last Reviewed 02/25/19 @ 06:26 by Manolo Oakley MD) HTN (hypertension) (Chronic) Colitis (Chronic) GERD (gastroesophageal reflux disease) (Chronic) HLD (hyperlipidemia) (Chronic) Insomnia (Chronic) Diverticulosis (Chronic) Medical History: Medical History (Last Reviewed 04/18/19 @ 08:10 by Amrit Lacy DO) Anxiety F41.9 Depression F32.9 History of high cholesterol Z86.39 PTSD (post-traumatic stress disorder) F43.10 Allergies Latex, Natural Rubber Allergy (Verified 04/18/19 05:02) Rash Penicillins Allergy (Verified 04/18/19 05:02) Rash Home Medications: Ambulatory Orders Medication Instructions Recorded Lisinopril/Hydrochlorothiazide 1 ea PO DAILY #30 tab 04/14/18 [Zestoretic 20-12.5 mg Tablet] Omeprazole [Prilosec] 40 mg PO DAILY 04/24/18 Albuterol Inhaler [Ventolin Hfa] 2 puff INHALATION Q4H PRN PRN 05/14/18 Simvastatin [Zocor] 40 mg PO QHS 06/22/18 Docusate Sodium [Colace] 1 cap PO BID 02/25/19 Acetaminophen [Tylenol Extra 500 mg PO Q6H PRN PRN 04/18/19 Strength] Baclofen 10 mg PO TID PRN 04/18/19 Buspirone HCl 10 mg PO TID 04/18/19 Dicyclomine HCl [Bentyl] 10 mg PO Q6H PRN PRN 04/18/19 Gabapentin [Neurontin] 300 mg PO DAILY 04/18/19 Meloxicam [Mobic] 15 mg PO DAILY 04/18/19 Polyethylene Glycol 3350 [Miralax] 17 gm PO DAILY 04/18/19 Varenicline Tartrate [Chantix] 1 mg PO BID 04/18/19 Surgical History: Surgical History (Last Reviewed 04/18/19 @ 08:10 by Amrit Lacy DO) H/O tubal ligation Z98.51 History of section, classical Z98.891 Surgical History: - - bilateral pxqkjaax-epdfxboejhcn-Moesgkvem 10, 2018- [facility] Psychiatric 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 Denies: Fever, Night Sweats Eyes: Denies: Blurred vision, Double vision HEENT: Denies: Head Aches, Sinus Congestion, Sinus Drainage Cardiovascular: Denies: Chest Pain, Edema, Palpitations Respiratory: Denies: Cough, Shortness of breath at rest, Sputum production Gastrointestinal: Reports: Abdominal Pain - suprapubic, Nausea. Denies: Vomiting Genitourinary: Denies: Dysuria Musculoskeletal: Denies: Joint Pain, Joint Tenderness Skin: Denies: Dryness, Jaundice Neurological: Reports: Balance problems, - - Sciatica Psychiatric: Denies: Anxiety, Depression Endocrine: Denies: Change in Body Habitus Hematologic/ Lymphatic: Denies: Easy Bruising, Easy Bleeding, Hx of blood clot Comment: A 10 point review of systems were negative except as mentioned in the history of present illness and the other review of systems. VTE Information - Inpt Only VTE Present on Admission: No VTE Mechan Device Prophylaxis: None VTE Pharm Prophylaxis ordered?: Yes Patient Problems: Active and Suspected Problems (Last Reviewed 02/25/19 @ 06:26 by Manolo Oakley MD) Pelvic abscess in female (Acute) Sepsis (Acute) - Physical Exam General: Alert, Cooperative, No apparent distress HEENT: Atraumatic, PERRLA, EOMI, Normocephalic Oral: Moist Mucosa, No Gingival or Mucosal Lesions/ Ulcerations Neck: No Nodes, Thyroid Normal Size and Texture Lungs: Clear to auscultation, Normal air movement, No rhonchi, No wheeze, No rales, Diminished Cardiovascular: Regular rate, Regular Rhythm, Normal S1, Normal S2, No murmurs Abdomen: Bowel Sounds Present, Soft, Non-Distended, No Hepato-splenomegaly, Obese, Tender - suprapubic Extremities: No edema, No Calf Tenderness Skin: No rashes, No breakdown Musculoskeletal: No Tenderness to Palpation of Joints or Extremities, No Muscle Wasting Neurological: Cranial nerves II-XII grossly intact, Deep Tendon Reflexes 2+/4 and Symmetrical Psych/Mental Status: Normal Affect, Appropriate Vital Signs Temp Pulse Resp BP Pulse Ox 37.1 C 74 18 153/73 H 95 04/18/19 06:24 04/18/19 06:24 04/18/19 06:24 04/18/19 07:18 04/18/19 06:24 Oxygen Delivery Method Room Air Weight: 97.2 kg Body Mass Index (BMI) 36.8 Intake and Output for Last 24 Hours 04/16/19 04/17/19 04/18/19 23:59 23:59 23:59 Intake Total 1100 / 1100 Balance 1100 / 1100 Laboratory Tests Past 24 Hrs 04/18/19 04/18/19 04/18/19 04:25 04:25 05:45 WBC 19.4 H RBC 4.81 Hgb 15.3 H Hct 44.7 MCV 92.9 MCH 31.8 MCHC 34.2 RDW Std Deviation 44.0 H RDW Coeff of Lola 12.8 Plt Count 236 MPV 10.2 Immature Gran % (Auto) 0.600 Neut % (Auto) 70.1 H Lymph % (Auto) 21.4 [place] % (Auto) 7.3 Eos % (Auto) 0.2 Baso % (Auto) 0.4 Absolute Neuts (auto) 13.6 H Absolute Lymphs (auto) 4.15 Nucleated RBC % 0 Sodium 138 Potassium 4.0 Chloride 104 Carbon Dioxide 27.0 Anion Gap 7 BUN 12 Creatinine 0.72 Estim Creat Clear Calc 70.85 Est GFR (MDRD) Af Amer 105 Est GFR (MDRD) Non-Af 87 BUN/Creatinine Ratio 16.6 Glucose 132 H Calcium 9.7 Urine Color Yellow Urine Clarity Clear Urine pH 7.0 Ur Specific [place] 1.005 Urine Protein Negative Urine Glucose (UA) Normal Urine Ketones Negative Urine Occult Blood Negative Urine Nitrite Negative Urine Bilirubin Negative Urine Urobilinogen Normal Ur Leukocyte Esterase Negative Urine RBC 0 SEEN Urine WBC 0 SEEN Ur Squamous Epith Cells 0-5 SEEN Urine Bacteria 0 SEEN Urine Mucus Not Reportable Clinical Impression(s) from Imaging Studies Abdomen/Pelvis CT 04/18/19 04:39 IMPRESSION: 1. Posterior cul-de-sac residual or recurrent 7 x 3 cm abscess with air-fluid level. 2. Diverticulosis coli. No pneumoperitoneum or free fluid. 3. 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 The aortoiliac findings appear unchanged. 4. Additional chronic findings include stable right adrenal lesion and fat-containing umbilical hernia. Individualized dose optimization techniques were used for this CT. at 0604 Reported and signed by: Ray Corral MD Electronically Signed: Ray Corral, at 6:02 EDT Tel , Service support , Assessment/Plan All Active Problems (Last Reviewed 02/25/19 @ 06:26 by Manolo Oakley MD) Pelvic abscess in female (Acute) Sepsis (Acute) Diarrhea (Resolved) Hematochezia (Resolved) Pelvic abscess (Acute) 1. Sepsis * POA * 2/4 SIRS criteria: RR 22, WBC 19.4 * 2/2 pelvic abscess * check lactate * Recd metronidazole, cipro and CTX in ED and will continue on the floor * IV fluids 2. Pelvic abscess * Larger than last time. * +group C strep last time * continue current abx for now * consult Sign Manufacturer for evaluation * DW patient that she needs a procedure: another perc drain (which wouldn't be able to be done until next week) or surgery. She asked me what would need to be done surgery, told her that would be to remove the abscess but beyond that I could not speculate. But I told her that this would be done at the discretion and recommendation of the gynecology service. I told the patient that it is possible she may need to have another drain placed but she was very upset and said that this needs to be completely taken care of. Try to talk with her and calm her down this patient was very worked up over this but did seem to have some understanding after a very lengthy conversation. In the meantime, to continue with antibiotics and monitor. 3. Diabetes mellitus type 2, diet controlled * Sliding scale insulin 4. PTSD and anxiety * Continue with buspirone * My concern is that the patient may make some rational decisions that she last time she was in the hospital state that she had to pay off some bills. I am concerned that patient may make some additional rash decisions and could potentially leave AGAINST MEDICAL ADVICE again though she has not threatening to do so at this time. 5. VTE prophylaxis: Moderate risk. Low molecular weight heparin Code Visit Inpatient E&M: 81629 Init Hosp L3
[2019-04-18] MEDS: Ceftriaxone 1 GM/50 ML BAG IV (08:41)
[2019-04-18] MEDS: 0.9% Normal Saline 1,000 ML 150 ML IV ×2 (09:04→16:13)
[2019-04-18] MEDS: Morphine 2 MG/ML Syringe IV ×3 (09:05→22:08)
[2019-04-18] MEDS: metroNIDAZOLE 500 MG/100 ML BAG 100 MG IV ×2 (10:36→16:14)
[2019-04-18] MEDS: Pantoprazole Sodium 40 MG Tablet PO (11:01)
[2019-04-18] MEDS: Docusate Sodium 100 MG Capsule PO ×2 (11:01→22:17)
[2019-04-18] MEDS: Polyethylene Glycol 3350 17 GM PACKET PO (11:01)
[2019-04-18] MEDS: Lisinopril 20 MG Tablet PO (11:01)
[2019-04-18] MEDS: Enoxaparin 40 MG/0.4 ML Syringe SC (11:01)
[2019-04-18] MEDS: Varenicline 1 MG Tablet PO ×2 (11:02→22:16)
[2019-04-18] MEDS: Gabapentin 300 MG Capsule PO (11:02)
[2019-04-18] MEDS: hydroCHLOROthiazide 12.5mg 12.5 MG PO (11:02)
[2019-04-18] MEDS: Meloxicam 15 MG Tablet PO (11:02)
--- NOTE | 2019-04-18 11:40 | CASEMGMT ---
RN CM Face to Face with patient for initial transition planning/care coordination assessment. RN CM introduced self and role at [facility]. Patient lying in bed, alert and oriented. Patient willing to participate in assessment and is able to answer all questions appropriately. Care providers, pharmacy, and demographics verified. Patient wishes to discharge home, denies need for home health at this time. Patient states she has no further needs or concerns at this time. CM to follow for discharge planning needs that may arise. PCP: Fatimah Specialists: Stefany José Pharmacy: [facility] Insurance: [employer] [facility] Prescription Benefit: yes Living Will/HPOA: none LNOK: Friend Lacy Living Arrangements: Patient lives with friend in 1 story home with 2 steps to enter the home. Patient independent at home. [facility] DME/HHC: Patient denies DME in the home or previous HHC. Patient states she has CM at [facility] Disposition Plan: Patient to discharge home with support from friend and follow-up plans in place. CM to monitor for need for HHC pending course of treatment. Swathi ACUNAN, RN, CM
[2019-04-18] MEDS: busPIRone 5 MG Tablet 10 MG PO ×2 (13:34→22:16)
[2019-04-18 13:41] LABS: Bedside Glucose 113 mg/dL (70-110)
[2019-04-18] MEDS: Glucerna Shake 120 ML LIQUID PO (16:12)
[2019-04-18 16:16] LABS: Bedside Glucose 146 mg/dL (70-110)
[2019-04-18] MEDS: 0.9% NaCl Peripheral Flush Adult/Peds IV (17:34)
--- NOTE | 2019-04-18 21:30 | DCINST_ITS ---
- Discharge Diagnoses Current Active Problems: Current Active and Chronic Problems (Last Reviewed 04/18/19 @ 08:10 by Amrit Lacy DO) Pelvic abscess in female (Acute) Sepsis (Acute) Reason(s) for Visit for Discharge Instructions: Abd pain Allergies/Adverse Reactions: Allergies Latex, Natural Rubber Allergy (Verified 04/18/19 05:02) Rash Penicillins Allergy (Verified 04/18/19 05:02) Rash Medications to take at Discharge Lisinopril/Hydrochlorothiazide [Zestoretic 20-12.5 mg Tablet] 1 ea PO DAILY #30 tab 04/14/18 Omeprazole [Prilosec] 40 mg PO DAILY 04/24/18 Albuterol Inhaler [Ventolin Hfa] 2 puff INHALATION Q4H PRN PRN 05/14/18 Simvastatin [Zocor] 40 mg PO QHS 06/22/18 Docusate Sodium [Colace] 1 cap PO BID 02/25/19 Acetaminophen [Tylenol Extra Strength] 500 mg PO Q6H PRN PRN 04/18/19 Baclofen 10 mg PO TID PRN 04/18/19 Buspirone HCl 10 mg PO TID 04/18/19 Dicyclomine HCl 10 mg PO QHS 04/18/19 Dicyclomine HCl [Bentyl] 10 mg PO Q8 04/18/19 Gabapentin [Neurontin] 300 mg PO DAILY 04/18/19 Meloxicam [Mobic] 15 mg PO DAILY 04/18/19 Polyethylene Glycol 3350 [Miralax] 17 gm PO DAILY 04/18/19 Varenicline Tartrate [Chantix] 1 mg PO BID 04/18/19 Primary Care Physician: Gloria Sheridan MD [Primary Care Provider] - Test Results: Test results from this visit will be discussed in further detail at your follow- up appointment, if applicable. Proposed Discharge Date: 04/18/19
[2019-04-18] MEDS: Atorvastatin Calcium 20 MG Tablet PO (22:17)
--- NOTE | 2019-04-18 22:47 | NURSING ---
[facility] Care with Transfer will be here 20-30minutes.
[2019-04-19 00:16] LABS: Bedside Glucose 132 mg/dL (70-110)
== END 2019-04-18 23:30 | disposition short-term general hospital (02) | DRG 872 ==
LOC: ED 06:23 → MS3 07:54
PROVIDERS: Emergency Provider Emergency Medicine; Family Provider Internal Medicine; PCP Internal Medicine
DX: A41.9 Sepsis, unspecified organism (principal); N73.9 Female pelvic inflammatory disease, unspecified; F43.10 Post-traumatic stress disorder, unspecified; F41.9 Anxiety disorder, unspecified
CPT/HCPCS: 74177; 80048; 81001; 82962; 85025; 97166; 97802; 99285; 99406; J7030; Q9967; A4216; J0744; J2405

== ENCOUNTER 2019-05-03 14:51 | Emergency (ER) | payer MEDICARE, SELFPAY ==
[2019-04-18 08:17] VITALS: BMI 36.3
[2019-05-03 14:53] VITALS: BP 167/88; PULSE 64; RESP 18; TEMP 36.7; O2SAT 97; BMI 37.0
--- NOTE | 2019-05-03 15:25 | ED.DCSUM_ITS ---
- ER Visit Summary Date of Service: 05/03/19 Chief Complaint: Perineal pain and vaginal itching History of Present Illness: The patient is a 59 F who presents with vaginal itching and perineal pain is been getting worse over the past 5 days. Patient is being treated for diverticular abscess with Rocephin through PICC line. Patient developed vaginal itching and rash that has been getting worse. Patient describes as burning. Patient was recently started on fluconazole for 14 days. Patient states her pain is worse with urination and with sitting and walking. Patient denies any fevers or chills. Patient had an episode of nausea but denies any vomiting. Patient denies any chest pain or shortness of breath. Physical Examination: Vital signs are stable. Patient is afebrile. Patient is in no acute distress. Oral mucosa is pink and moist. Neck is supple. Trachea is midline. There is no JVD noted. Heart was regular rate and rhythm. Lungs are clear and equal bilaterally. Abdomen is soft. Bowel sounds are normal. There is no tenderness. Cranial nerves II through XII are intact. There are no focal motor or sensory deficits noted. Examination of the perineum shows an erythematous area with scaling along the borders that is consistent with tinea cruris Test Results: The comprehensive metabolic profile were within normal limits. Urinalysis shows leukocyte esterase of 100 with 0-5 white blood cells. This is most likely contaminant. However the patient is currently on Rocephin. Emergency Department Course and Treatment: The perineum was cleaned. Topical lidocaine was applied. Patient was given a prescription for Lotrisone lotion. Patient was instructed to continue her fluconazole as prescribed as well. Patient was instructed to follow-up with her primary care physician in 5 to 7 days. Patient understood and was agreeable with the plan. All questions were answered. Disposition: Discharge home Impression: Tinea cruris This note was generated with [employer] dictation software. It may contain incorrect words, spelling, and punctuation that were not noted in review of the chart prior to signing ED Disposition - Plan for ED Patient: Disposition: Home or Assisted Living Diagnosis: Tinea cruris Instructions: TINEA CRURIS, General Prescriptions: Clotrimazole/Betamethasone Dip [Clotrimazole-Betamethasone Lot] 10 ml TP BID #200 ml Prescription Printed Referrals: Gloria Sheridan MD [Primary Care Provider] - 3-5 Days
[2019-05-03 15:42] LABS: Mucous, Urine 0 SEEN /hpf (<or=2+); Red Blood Cells-Urine 0 SEEN /hpf (0-5)
[2019-05-03 15:52] LABS: Color, Urine Yellow (Yellow); Glucose, Dipstick Normal (Normal); Ketone-Dipstick Negative (Negative); Leukocyte Esterase-Dipstick 100 /ul (Negative); Nitrite-Dipstick Negative (Negative); Occult Blood-Urine Negative /ul (Negative); Protein-Dipstick Negative (Negative); Specific Gravity, Urine 1.015 (1.002-1.030); Urine Bilirubin Dipstick Negative (Negative); Urine Clarity Sl. Cloudy (Clear); Urine Urobilinogen Normal (Normal)
[2019-05-03] MEDS: 0.9% Normal Saline 1,000 ML 1000 ML IV (15:53)
[2019-05-03 16:05] LABS: Absolute Lymphocyte Count 3.01 X10^3/uL (0.83-4.51); Absolute Neutrophil Count 6.5 X10^3/uL (2.0-7.7); Basophil# 0.08 X10^3/uL; Basophil% 0.7 % (0-1); Eosinophil# 0.18 X10^3/uL; Eosinophils% 1.7 % (0-5); Hematocrit 41.3 % (37-47); Hemoglobin 13.6 g/dL (12.0-15.0); Lymphocyte # 3.01 X10^3/ul (4.0); Lymphocyte % 28.1 % (19-41); Mean Corp Hgb Conc 32.9 g/dL (32-36); Mean Corpuscular Hgb 31.9 pg (27.0-32.0); Mean Corpuscular Volume 96.9 fL (81-99); Mean Platelet Vol. 9.8 fl (6.2-12.0); Monocyte# 0.94 X10^3/uL; Monocyte% 8.8 % (0-10); NRBC Flagged by Analyzer 0 % (0-5); Neutrophil # 6.48 X10^3/uL (2.7-7.7); Neutrophil % 60.3 % (47-70); Platelet Count 300 K/mm3 (150-450); RBC Distribution Width CV 13.5 % (11.6-14.6); RBC Distribution Width SD 48.2 fl (35.1-43.9); Red Blood Count 4.26 M/mm3 (4.2-5.4); White Blood Count 10.7 K/mm3 (4.4-11.0)
[2019-05-03 16:06] LABS: Squamous Epithelial Cells - UA 0-5 SEEN /hpf (5-10); White Blood Cells 5-10 SEEN /hpf (0-5)
[2019-05-03 16:07] LABS: Bacteria RARE /hpf (None Seen)
[2019-05-03 16:09] LABS: ALB/GLOB Ratio 0.7 RATIO (0.9-2.4); AST(SGOT) 9 U/L (15-37); Alanine Aminotransfer ALT/SGPT 18 U/L (13-56); Albumin, Serum 3.4 g/dL (3.2-5.0); Alkaline Phosphatase 77 U/L (45-117); Anion Gap 3 (5-15); BUN 23 mg/dL (7-18); BUN/Creat Ratio 24.6 RATIO (10-20); Calcium,Total 9.6 mg/dL (8.5-10.1); Chloride 105 mmol/L (98-107); Creatinine, Serum 0.94 mg/dL (0.55-1.02); EST Glomerular Filtration Rate 65 mL/min (>60); Est Glom Filt Rate - Afr Amer 78 mL/min (>60); Estimated Creatinine Clearance 54.27 ml/min; Globulin 4.6 g/dL (2.2-4.2); Glucose 103 mg/dL (74-106); Sodium Level 140 mmol/L (136-145)
[2019-05-03 17:55] VITALS: BP 139/74; PULSE 68; RESP 18; O2SAT 97
== END 2019-05-03 18:49 | disposition home or self-care (01) ==
PROVIDERS: Emergency Provider Emergency Medicine; Family Provider Internal Medicine; PCP Internal Medicine
DX: B35.6 Tinea cruris (principal); K57.92 Diverticulitis of intestine, part unspecified, without perforation or abscess without bleeding; M54.9 Dorsalgia, unspecified; G89.29 Other chronic pain; E11.9 Type 2 diabetes mellitus without complications; I10 Essential (primary) hypertension; Z79.899 Other long term (current) drug therapy; F17.200 Nicotine dependence, unspecified, uncomplicated
CPT/HCPCS: 36415; 36592; 80053; 81001; 85025; 96360; 96361; 99284; J7030; A4216

== ENCOUNTER → 2019-09-24 12:50 | Outpatient (CLI) | payer MEDICARE, MEDICAID, SELFPAY ==
--- NOTE | 2019-09-24 13:17 | RAD_ITS ---
HISTORY: NECK PAIN COMPARISON: None FINDINGS: # of images incl. paperwork: 5 XR Spine Cervical 5 Views: 5 5 views of the cervical spine were obtained. All 7 cervical vertebral bodies are identified. No acute cervical spine fracture or subluxation. Normal cervical spine alignment. Odontoid is intact. Some uncovertebral hypertrophy is present at the C4-C5 and C6 levels. Some facet arthropathy is present. Bilateral calcific plaque is present within the carotid bulbs. RAD/Cerv Spine 4 or 5 Views IMPRESSION: No acute cervical spine fracture or subluxation. at 0601 Reported and signed by: Alexander Sharpe MD Electronically Signed: Alexander Sharpe MD at 6:00 EST Tel , Service support ,
== END ==
PROVIDERS: PCP Internal Medicine; Referring Provider Anesthesiology Pain Medicine; Visit Provider Anesthesiology Pain Medicine
DX: M54.2 Cervicalgia (principal)
CPT/HCPCS: 72050

== ENCOUNTER 2019-11-25 13:30 | Outpatient (RCR) | payer MEDICARE, MEDICAID, SELFPAY ==
--- NOTE | 2019-09-29 11:59 | HP.PTEVAL ---
Patient's Visit Information BARI LAUGHLIN is a 59 year old F referred to Physical Therapy by BRIT Diaz with a diagnosis of LUMBOSACRAL SPONDYLOSIS,LUMBAR RADICULOPATHY, DDD,. Date of Evaluation: 09/29/19 Physical Therapist: Dwain Galeas, PT, Cert MDT, OCS - Visit Plan Frequency: 2x /Week Duration: 4 Weeks Plan: PRECAUTION: LATEX ALLEGY. PT INTERVENTIONS BLE STRENGTHENING,POSTURAL EX'S,DLS,ENDURANCE PROGRAM - Subjective Findings: This 59 y/o female presents to physical therpy with back pain. Patient has multiple comorbities from being hospitalized 3 times past year with colonectomy,hernia repair and uterus with extensive hospital stay ,which was done in June.Pateint has open wound from surgery with drainage. Patient had developed weakness has difficulty with walking and distance with legs give way. Patient has had bcak pain for many years. Symptoms located symtrical lumbar . Aggraveting factors walking,standing,requires rest periods,bending ,lifting. alleviating factors rest. Patient has parathesia in legs. Coughing/sneezing-. Patient has difficulty with sleeping. Patient pain affects ability to perform ADLS' ,housework tasks and function.Patient also has DJD right. Patient seen pain managemnt had on epidural injection.Patient has had prior [facility] PT.PRECAUTION: LATEX ALLERGY. SOCAIL: single. VOCATION: disbality - Pain Bilateral Back Pain Intensity (Out of 10): 4 Pain Intensity Range: 10 - Objective POSTURE: mild foward posture. NEURO: c/o parathesia/tingling ,reflexes L3-4,L4-5,L5-S1. SYMMTRIES: align. PALAPTION: tender LS. GAIT: reciprocal antalgic gait foward posture ,slow leana. MMT: quads/hams R 3+/5,L 4-/5,HIP flexion /abd 3+/5,ankle 4/5. FLEXABLITY: hams mild hamstrings - Special Tests L/S Slump test left side: Negative L/S Slump test right side: Negative L/S Left Straight Leg Raise: Negative L/S Right Straight Leg Raise: Negative Lumbar Standing: Flexion - Mechanical Response: No effect Lumbar Standing: Flexion - Symptoms During Testing: No effect Lumbar Standing: Flexion - Symptoms After Testing: No effect Lumbar Standing: Extension - Mechanical Response: No effect Lumbar Standing: Extension - Symptoms During Testing: Increases Lumbar Standing: Extension - Symptoms After Testing: No worse Lumbar Standing: Right Side Glides - Mechanical Response: No effect Lumbar Standing: Right Side [place] - Symptoms During Testing: No effect Lumbar Standing: Right Side [place] - Symptoms After Testing: No effect Lumbar Standing: Left Side [place] - Mechanical Response: No effect Lumbar Standing: Left Side [place] - Symptoms During Testing: No effect Lumbar Standing: Left Side [place] - Symptoms After Testing: No effect - Goals Goal 1:: Independant with HEP. Goal Time Frame: 4-6 Weeks Goal 2:: Patient to decrease pain by 50% or > to improve function. Goal Time Frame: 4-6 Weeks Goal 3:: Patient increase lumbar ROM for function of recovery Goal Time Frame: 4-6 Weeks Goal 4:: Patient to improve strength quads/hams 4-/5 R,L 4/5,hip 4-/5 to improve function. Goal Time Frame: 4-6 Weeks Goal 5:: Patient to improve back owestry score by 5 points or > to improve QOL. Goal Time Frame: 4-6 Weeks Goal 6:: patient improve functional endurance with gait in community Goal Time Frame: 4-6 Weeks - Rehabilitation Potential Physical Therapy Diagnosis: This patient has multiple comorbities with being hospitalized past year with colon surgey this past Nov. along with back pain and weakness in legs impairs walking satnding affec ting ADLS' Rehabilitation Potential: Good - Anticipated Interventions Patient/Client Instruction: Educate patient on: Condition, Plan of Care For the Purpose of:: To decrease pain, To improve muscle performance and motor function, To improve ability to perform ADL's, To increase tolerance to activity/condition/position, To improve performance and independence with ADL's, To improve ability of physical actions for home/community/work/leisure, To improve gait and locomotor functions, To increase flexibility/ROM, To improve endurance, To improve balance, To improve ability to perform tasks related to life management Therapeutic Exercise to Include: Strength training, Endurance training, Balance training, Body mechanics, Postural training, Flexibilty training, Dynamic Lumbar Stabilization Comment: BLE For the Purpose of:: To decrease pain, To increase ROM, To improve muscle performance and motor function, To improve ability to perform ADL's, To increase tolerance to activity/condition/position, To improve ability of physical actions for home/community/work/leisure, To improve gait and locomotor functions, To decrease soft tissue restriction, To improve endurance, To improve balance, To improve ability to perform tasks related to life management TENS: Yes IF ES: Yes Thermo therapy (hot pack): Yes Ultrasound (thermal/non thermal): Yes For the Purpose of:: To decrease pain, To increase ROM, To improve health of tissue, To decrease soft tissue restriction Thank you for the opportunity to evaluate your patient. For Medicare and Medicare HMO plans, please review the plan of care and approve it. It will need to be FAXED BACK to us at [phone] for Medicare purposes. For Medicare only, by signing this I certify the plan of care. Please let me know if there are questions or concerns regarding this plan of care. Physician Signature: Date:
--- NOTE | 2019-09-29 19:52 | HP.PTEVAL ---
Patient's Visit Information BARI LAUGHLIN is a 59 year old F referred to Physical Therapy by BRIT Diaz with a diagnosis of LUMBOSACRAL SPONDYLOSIS,LUMBAR RADICULOPATHY, DDD,. Date of Evaluation: 09/29/19 Physical Therapist: Dwain Galeas, PT, Cert MDT, OCS - Visit Plan Frequency: 2x /Week Duration: 4 Weeks Plan: PRECAUTION: LATEX ALLEGY. RECOMMENDING ROLLATOR WALKER WITH SEAT FOR GAIT DUE TO DECREASE ENDURANCE AND STRENGTH IN ORDER TO MAINTAIN PATIENTS FUNCTION. PT INTERVENTIONS BLE STRENGTHENING,POSTURAL EX'S,DLS,ENDURANCE PROGRAM - Subjective Findings: This 59 y/o female presents to physical therpy with back pain. Patient has multiple comorbities from being hospitalized 3 times past year with colonectomy,hernia repair and uterus with extensive hospital stay ,which was done in June.Pateint has open wound from surgery with drainage. Patient had developed weakness has difficulty with walking and distance with legs give way. Patient has had back pain for many years. Symptoms located symtrical lumbar . Aggraveting factors walking,standing,requires rest periods,bending ,lifting. alleviating factors rest. Patient has parathesia in legs. Coughing/sneezing-. Patient has difficulty with sleeping. Patient pain affects ability to perform ADLS' ,housework tasks and function.Patient also has DJD right. Patient seen pain managemnt had on epidural injection.Patient has had prior [facility] PT.PRECAUTION: LATEX ALLERGY. SOCAIL: single. VOCATION: disbality - Pain Bilateral Back Pain Intensity (Out of 10): 4 Pain Intensity Range: 10 - Objective POSTURE: mild foward posture. NEURO: c/o parathesia/tingling ,reflexes L3-4,L4-5,L5-S1. SYMMTRIES: align. PALAPTION: tender LS. GAIT: reciprocal antalgic gait foward posture ,slow leana. MMT: quads/hams R 3+/5,L 4-/5,HIP flexion /abd 3+/5,ankle 4/5. FLEXABLITY: hams mild hamstrings - Special Tests L/S Slump test left side: Negative L/S Slump test right side: Negative L/S Left Straight Leg Raise: Negative L/S Right Straight Leg Raise: Negative Lumbar Standing: Flexion - Mechanical Response: No effect Lumbar Standing: Flexion - Symptoms During Testing: No effect Lumbar Standing: Flexion - Symptoms After Testing: No effect Lumbar Standing: Extension - Mechanical Response: No effect Lumbar Standing: Extension - Symptoms During Testing: Increases Lumbar Standing: Extension - Symptoms After Testing: No worse Lumbar Standing: Right Side Glides - Mechanical Response: No effect Lumbar Standing: Right Side [place] - Symptoms During Testing: No effect Lumbar Standing: Right Side [place] - Symptoms After Testing: No effect Lumbar Standing: Left Side [place] - Mechanical Response: No effect Lumbar Standing: Left Side [place] - Symptoms During Testing: No effect Lumbar Standing: Left Side [place] - Symptoms After Testing: No effect - Goals Goal 1:: Independant with HEP. Goal Time Frame: 4-6 Weeks Goal 2:: Patient to decrease pain by 50% or > to improve function. Goal Time Frame: 4-6 Weeks Goal 3:: Patient increase lumbar ROM for function of recovery Goal Time Frame: 4-6 Weeks Goal 4:: Patient to improve strength quads/hams 4-/5 R,L 4/5,hip 4-/5 to improve function. Goal Time Frame: 4-6 Weeks Goal 5:: Patient to improve back owestry score by 5 points or > to improve QOL. Goal Time Frame: 4-6 Weeks Goal 6:: patient improve functional endurance with gait in community Goal Time Frame: 4-6 Weeks - Rehabilitation Potential Physical Therapy Diagnosis: This patient has multiple comorbities with being hospitalized past year with colon surgey this past Nov. along with back pain and weakness in legs impairs walking satnding affecting ADLS' Rehabilitation Potential: Good - Anticipated Interventions Patient/Client Instruction: Educate patient on: Condition, Plan of Care For the Purpose of:: To decrease pain, To improve muscle performance and motor function, To improve ability to perform ADL's, To increase tolerance to activity/condition/position, To improve performance and independence with ADL's, To improve ability of physical actions for home/community/work/leisure, To improve gait and locomotor functions, To increase flexibility/ROM, To improve endurance, To improve balance, To improve ability to perform tasks related to life management Therapeutic Exercise to Include: Strength training, Endurance training, Balance training, Body mechanics, Postural training, Flexibilty training, Dynamic Lumbar Stabilization Comment: BLE For the Purpose of:: To decrease pain, To increase ROM, To improve muscle performance and motor function, To improve ability to perform ADL's, To increase tolerance to activity/condition/position, To improve ability of physical actions for home/community/work/leisure, To improve gait and locomotor functions, To decrease soft tissue restriction, To improve endurance, To improve balance, To improve ability to perform tasks related to life management TENS: Yes IF ES: Yes Thermo therapy (hot pack): Yes Ultrasound (thermal/non thermal): Yes For the Purpose of:: To decrease pain, To increase ROM, To improve health of tissue, To decrease soft tissue restriction Thank you for the opportunity to evaluate your patient. For Medicare and Medicare HMO plans, please review the plan of care and approve it. It will need to be FAXED BACK to us at [phone] for Medicare purposes. For Medicare only, by signing this I certify the plan of care. Please let me know if there are questions or concerns regarding this plan of care. Physician Signature: Date:
--- NOTE | 2019-12-23 12:41 | HP.PTDCNRP_ITS ---
BARI LAUGHLIN was seen in my office for initial evaluation on 09/29/19. The following Plan of Care was established for this patient: Initial Frequency: 2x /Week Initial Duration: 4 Weeks Patient/Client Instruction: Educate patient on: Condition, Plan of Care For the Purpose of:: To decrease pain, To improve muscle performance and motor function, To improve ability to perform ADL's, To increase tolerance to activity/condition/position, To improve performance and independence with ADL's, To improve ability of physical actions for home/community/work/leisure, To improve gait and locomotor functions, To increase flexibility/ROM, To improve endurance, To improve balance, To improve ability to perform tasks related to life management Therapeutic Exercise to Include: Strength training, Endurance training, Balance training, Body mechanics, Postural training, Flexibilty training, Dynamic Lumbar Stabilization For the Purpose of:: To decrease pain, To increase ROM, To improve muscle performance and motor function, To improve ability to perform ADL's, To increase tolerance to activity/condition/position, To improve ability of physical actions for home/community/work/leisure, To improve gait and locomotor functions, To d ecrease soft tissue restriction, To improve endurance, To improve balance, To improve ability to perform tasks related to life management TENS: Yes IF ES: Yes Thermo therapy (hot pack): Yes Ultrasound (thermal/non thermal): Yes For the Purpose of:: To decrease pain, To increase ROM, To improve health of tissue, To decrease soft tissue restriction This patient was last seen in our office . Pertinent comments regarding their Physical therapy will appear below: Patient seen for PT for lumbar radiculopathy for DLS,postural,ex's and conditioning ,thus is d/c admist of COVID-19 At this point I will be discontinuing this patient from physical therapy. I would be happy to see this patient again in the future if found appropriate by the physician. Thank you! Dwain Galeas, PT, Cert MDT, OCS
== END 2019-11-25 19:00 | disposition home or self-care (01) ==
LOC: PT 13:30
PROVIDERS: PCP Internal Medicine; Referring Provider Nurse Practitioner Family; Visit Provider Nurse Practitioner Family
DX: M51.17 Intervertebral disc disorders with radiculopathy, lumbosacral region (principal); M47.27 Other spondylosis with radiculopathy, lumbosacral region; M46.96 Unspecified inflammatory spondylopathy, lumbar region
CPT/HCPCS: 97110; 97162

== ENCOUNTER 2021-07-15 16:53 | Emergency (ER) | payer MEDICARE, MEDICAID, SELFPAY ==
[2021-07-15 16:54] VITALS: BP 159/90; PULSE 65; RESP 18; TEMP 36.6; O2SAT 97; BMI 36.7
--- NOTE | 2021-07-15 18:03 | EKG12_ITS ---
Test Reason : Blood Pressure : / mmHG Vent. Rate : 064 BPM Atrial Rate : 064 BPM P-R Int : 158 ms QRS Dur : 084 ms QT Int : 432 ms P-R-T Axes : 073 082 054 degrees QTc Int : 445 ms Normal sinus rhythm Normal ECG Confirmed by ISABELLA LENNON, ANDREA ([id number]), staff editor DON JEFFREY ([id number]) on 07/18/2021 1:17:44 PM Referred By: GISSELL Confirmed By:ANDREA MASON MD
--- NOTE | 2021-07-15 18:04 | EDS_ITS ---
HPI History of Present Illness Chief Complaint: General Illness Detail of Chief Complaint: Fatigue and generalized weakness Informant: patient Narrative Narrative: Patient presents to the emergency department with symptoms off and on for about a month. Patient was advised by her top lift nailer to come in and get evaluated. Patient complains of exertional dyspnea and just not having energy. Patient states that she has stage III kidney disease however she is not on dialysis currently. Patient denies any fever or recent illness. She denies urinary symptoms. She thinks maybe she has had a bit decreased urine output. She denies chest pain. She states that she has no pain anywhere. She denies blood in her stool or black tarry stools. Patient has had the Covid vaccine. She denies vomiting or diarrhea. Prior similar symptoms: No PFSH PFSH Medical History (Updated 07/15/21 @ 21:[address] Azucena Mccann, DO) Anxiety Depression History of high cholesterol PTSD (post-traumatic stress disorder) Home Medications albuterol sulfate [Ventolin HFA] 2 puff INHALATION Q4H PRN PRN 05/14/18 [History Last Taken 06/21/18] acetaminophen 500 mg PO Q6H PRN PRN 04/18/19 [History Last Taken Unknown] carvedilol 25 mg PO BID 07/15/21 [History Last Taken Unknown] nifedipine 60 mg PO BID 07/15/21 [History Last Taken Unknown] prednisone 20 mg PO BID #6 tab 07/15/21 [Rx Last Taken Unknown] Allergy/AdvReac Type Severity Reaction Status Date / Time Latex, Natural Rubber Allergy Rash Verified 07/15/21 16:56 Penicillins Allergy Rash Verified 07/15/21 16:56 Surgical History H/O tubal ligation History of section, classical Social History (Updated 04/24/18 @ 15:07 by Stella Faith NP, [employer]) Smoking Status: Current every day smoker tobacco type: cigarettes ROS ROS ED Constitutional Constitutional ED: Reports systems reviewed and no addt'l complaints, except as documented; Denies body ache(s), change in weight or chills Eyes Eyes: Denies acute decrease in peripheral vision, change in vision, double vision or loss of vision ENT ENT ED: Reports none; Denies ear pain, lip swelling, loss taste/smell, neck pain, otalgia or sore throat Cardiovascular Cardiovascular: Reports none; Denies abdominal pain, chest pain with activity, leg edema, lightheadedness, palpitations, rapid heart rate or syncope Respiratory/Chest Respiratory/Chest: Reports none; Denies change in mental status, dry cough, dyspnea, hemoptysis, shortness of breath at rest or shortness of breath with exertion Gastrointestinal Gastrointestinal: Reports none; Denies abdominal pain, change in stool character, diarrhea, hematemesis, hematochezia, melena, rectal bleeding or vomi ting Genitourinary Genitourinary ED: Reports none; Denies abdominal discomfort, anuria, dysuria, genital pain or polyuria Musculoskeletal Musculoskeletal: Reports none; Denies arthralgias, back pain, difficulty walking, extremity pain, muscle weakness or myalgias Integumentary Reports none; Denies abscess or rash Neurologic Neurologic: Reports none and weakness; Denies abnormal gait, confusion, focal weakness, frequent falls, headache(s), loss of vision, numbness, paresthesias, radicular pain or vertigo Psychiatric Psychiatric: Reports systems reviewed and no addt'l complaints, except as documented and none; Denies behavioral changes, confusion, difficulty concentrating, hallucinations, suicidal ideation, tactile hallucinations or visual hallucinations Endocrine Endocrinology: Denies none, cold intolerance, excessive sweating, fatigue or heat intolerance Hematologic/Lymphatic Hematologic/Lymphatic: Reports none; Denies anemia, easy bleeding or easy bruisi ng Allergic/Immunologic Allergic/Immunologic ED: Denies as per HPI, none, lip swelling, mouth swelling, throat swelling, tongue swelling or hives EXAM Physical Exam Const Vital Signs: 07/15/21 16:54 07/15/21 18:21 07/15/21 19:00 Temperature 97.8 F Temperature Source Temporal Pulse Rate 65 69 Respiratory Rate 18 Respiratory Effort Short of Breath Respiratory Pattern Blood Pressure 159/90 H Blood Pressure Mean 113 Pulse Ox 97 93 Oxygen Delivery Method Room Air Room Air 07/15/21 20:01 07/15/21 20:03 07/15/21 20:12 Temperature Temperature Source Pulse Rate 65 64 62 Respiratory Rate 20 H 20 H Respiratory Effort Respiratory Pattern Normal Blood Pressure Blood Pressure Mean Pulse Ox 89 96 Oxygen Delivery Method Room Air Room Air Positive well nourished and well developed General Appearance ED: well developed and NAD HEENT Reports TM's clear and moist mucous membranes normocephalic and atraumatic; Negative for trauma or tenderness Tympanic Membrane ED: Yes TM's clear Eyes PERRL and EOMs intact bilaterally General Eye ED: Negative for pale conjunctiva or scleral icterus Neck no lymphadenopathy, supple and no JVD General: Negative for tenderness Chest Wall inspection of chest normal and palpation of chest normal Chest: Negative for tenderness Resp normal respiratory effort and clear to auscultation bilaterally Effort and Inspection: Negative for respiratory distress or pain with movement Auscultation: Negative for rhonchi, wheezes or diminished lung sounds Cardio regular rate, regular rhythm, S1 normal heart sound, S2 normal heart sound and no murmurs Peripheral Pulses: pulses 2+ throughout GI normal to inspection, nondistended, normoactive bowel sounds, soft to palpation, non-tender, non-distended and no masses Back/Spine no CVA tenderness and no thoracic nor lumbar tenderness Extremity normal to inspection General Extremety ED: Negative for edema General Extremity: Negative for edema Neuro oriented x3, CN's II-XII intact bilaterally, no sensory deficits noted and gait normal Sensorium / Orientation: awake, alert, oriented to person, oriented to place and oriented to time Motor Exam: strength 5/5 throughout and strength abnormal Psych mental status grossly normal Skin no rashes or lesions noted and no wounds MDM MDM MDM Narrative Medical decision making narrative: IV line established on arrival. Patient was given a DuoNeb aerosol and started on prednisone 40 mg p.o. Her lab work-up only significant for slightly elevated white count of 12.8. Urinalysis was normal. Chest x-ray was unremarkable. Etiology of her generalized weakness is unclear. Patient will be given a prescription for prednisone for 3 days as she did have some wheezing on exam and has been complaining of some dyspnea. She is a longtime smoker and I suspect she likely has a component of COPD. Lab Data Attestation: I reviewed the patient's lab results. Labs: Laboratory Results - last 24 hr 07/15/21 07/15/21 07/15/21 18:19 18:19 18:54 WBC 12.8 H RBC 3.86 L Hgb 12.0 Hct 34.2 L MCV 88.6 MCH 31.1 MCHC 35.1 RDW Std Deviation 46.0 H RDW Coeff of Lola 14.3 Plt Count 219 MPV 9.4 Immature Gran % (Auto) 0.500 Neut % (Auto) 70.6 H Lymph % (Auto) 20.2 [place] % (Auto) 6.8 Eos % (Auto) 1.5 Baso % (Auto) 0.4 Absolute Neuts (auto) 9.0 H Absolute Lymphs (auto) 2.59 Nucleated RBC % 0 Sodium 138 Potassium 3.4 L Chloride 107 Carbon Dioxide 25.0 Anion Gap 6 BUN 35 H Creatinine 2.77 H Estim Creat Clear Calc 17.95 Est GFR (MDRD) Af Amer 22 L Est GFR (MDRD) Non-Af 18 L BUN/Creatinine Ratio 12.6 Glucose 102 Calcium 8.7 Troponin I High Sens 22 Urine Color Yellow Urine Clarity Sl. Cloudy Urine pH 6.0 Ur Specific [place] 1.020 Urine Protein 500 H Urine Glucose (UA) Normal Urine Ketones Negative Urine Occult Blood 25 H Urine Nitrite Negative Urine Bilirubin Negative Urine Urobilinogen Normal Ur Leukocyte Esterase Negative Urine RBC 0-5 SEEN Urine WBC 0 SEEN Ur Squamous Epith Cells 0-5 SEEN Urine Bacteria 0 SEEN Urine Mucus 0 SEEN Radiography Chest X-Ray - ED: 1 View Diagnostic Testing: Clinical Impression(s) from Imaging Studies Chest X-Ray 07/15/21 18:25 IMPRESSION: Minimal fluid in the right fissure. Electronically Signed: John Ramon MD at 18:49 EST , Service support , 1 view chest x-ray obtained interpreted by myself as no acute disease process. Radiology felt patient had minimal fluid in the right fissure. EKG Initial EKG: Attestation: I personally reviewed and interpreted this EKG as follows: Comments: Sinus rhythm with a ventricular rate of 64 bpm with no acute ST segment changes Discharge Plan Triage Chief Complaint: General Illness ED Provider: Azucena Mccann Dx/Rx/DC Orders Clinical Impression: Fatigue, Acute dyspnea Instructions: ED Dyspnea, ED Weakness (Uncertain Cause) Prescriptions: New prednisone 20 mg tablet 20 mg PO BID Qty: 6 RF: 0 No Action albuterol sulfate [Ventolin HFA] 1 INHALER inhaler 2 puff inhalation Q4H PRN PRN (Reason: Wheezing) RF: 0 acetaminophen 500 MG tablet 500 mg PO Q6H PRN PRN (Reason: Pain) RF: 0 carvedilol 25 mg Tablet 25 mg PO BID RF: 0 nifedipine 60 mg Tablet Extended Release 60 mg PO BID RF: 0 Primary Care Provider: Elvin Becerra Referrals: Elvin Becerra MD [Primary Care Provider] - 3-5 Days Disposition Disposition: Home, Self Care
[2021-07-15] MEDS: 0.9% Normal Saline 1,000 ML 150 ML IV (18:22)
--- NOTE | 2021-07-15 18:25 | RAD_ITS ---
STUDY: X-RAY CHEST REASON FOR EXAM: Female, 61 years old. Technologist Notes SENT BY LIBRARY TECHNICAL ASSISTANT FOR EVAL OF FATIGUE, STAGE 3 RENAL DISEASE dyspnea TECHNIQUE: XR Chest 1 View COMPARISON: 02/25/2019 FINDINGS: There is no pneumothorax. Minimal fluid in the right fissure. Normal size heart. Normal mediastinum and mackenzie. Normal visualized pulmonary arteries. There is atherosclerotic calcification of the aortic arch with tortuosity. There are diffuse degenerative changes of the visualized thoracic spine. There is degenerative osteoarthritis of the bilateral shoulders. There is no demonstrated abnormality of the visualized soft tissue structures of the upper abdomen. RAD/Chest 1 View (Portable) IMPRESSION: Minimal fluid in the right fissure. Electronically Signed: John Ramon MD at 18:49 EST , Service support ,
[2021-07-15 18:40] LABS: Absolute Lymphocyte Count 2.59 X10^3/uL (0.83-4.51); Basophil# 0.05 X10^3/uL; Basophil% 0.4 % (0-1); Eosinophil# 0.19 X10^3/uL; Eosinophils% 1.5 % (0-5); Hematocrit 34.2 % (37-47); Lymphocyte # 2.59 X10^3/ul (0.83-4.51); Lymphocyte % 20.2 % (19-41); Mean Corp Hgb Conc 35.1 g/dL (32-36); Mean Corpuscular Hgb 31.1 pg (27.0-32.0); Mean Corpuscular Volume 88.6 fL (81-99); Mean Platelet Vol. 9.4 fl (6.2-12.0); Monocyte# 0.87 X10^3/uL; Monocyte% 6.8 % (0-10); NRBC Flagged by Analyzer 0 % (0-5); Neutrophil # 9.04 X10^3/uL (2.7-7.7); Neutrophil % 70.6 % (47-70); Platelet Count 219 K/mm3 (150-450); RBC Distribution Width CV 14.3 % (11.6-14.6); Red Blood Count 3.86 M/mm3 (4.2-5.4); White Blood Count 12.8 K/mm3 (4.4-11.0)
[2021-07-15 18:57] LABS: Anion Gap 6 (5-15); BUN 35 mg/dL (7-18); BUN/Creat Ratio 12.6 RATIO (10-20); Calcium,Total 8.7 mg/dL (8.5-10.1); Chloride 107 mmol/L (98-107); Creatinine, Serum 2.77 mg/dL (0.55-1.02); EST Glomerular Filtration Rate 18 mL/min (>60); Est Glom Filt Rate - Afr Amer 22 mL/min (>60); Estimated Creatinine Clearance 17.95 ml/min; Glucose 102 mg/dL (74-106); Potassium 3.4 mmol/L (3.5-5.1); Sodium Level 138 mmol/L (136-145); Troponin-I HS 22 pg/mL (3.0-54.0)
[2021-07-15 18:59] LABS: Bacteria 0 SEEN /hpf (None Seen); Mucous, Urine 0 SEEN /hpf (<or=2+); White Blood Cells 0 SEEN /hpf (0-5)
[2021-07-15 19:00] VITALS: PULSE 69; O2SAT 93
[2021-07-15 19:01] LABS: Color, Urine Yellow (Yellow); Glucose, Dipstick Normal (Normal); Ketone-Dipstick Negative (Negative); Leukocyte Esterase-Dipstick Negative /ul (Negative); Nitrite-Dipstick Negative (Negative); Occult Blood-Urine 25 /ul (Negative); Protein-Dipstick 500 mg/dl (Negative); Urine Bilirubin Dipstick Negative (Negative); Urine Clarity Sl. Cloudy (Clear); Urine Urobilinogen Normal (Normal)
[2021-07-15 19:08] LABS: Red Blood Cells-Urine 0-5 SEEN /hpf (0-5); Squamous Epithelial Cells - UA 0-5 SEEN /hpf (5-10)
[2021-07-15] MEDS: predniSONE 20 MG Tablet 40 MG PO (20:00)
[2021-07-15 20:01] VITALS: PULSE 65; RESP 20; O2SAT 89
[2021-07-15 20:03] VITALS: PULSE 64; RESP 20
[2021-07-15] MEDS: Ipratropium/Albuterol Sulfate 3 ML AMPUL.NEB INHALATION (20:03)
[2021-07-15 20:12] VITALS: PULSE 62; O2SAT 96
[2021-07-15 21:27] VITALS: BP 150/78; PULSE 65; RESP 18; O2SAT 92
== END 2021-07-15 21:28 | disposition home or self-care (01) ==
PROVIDERS: Emergency Provider Emergency Medicine; PCP Family Medicine
DX: R06.00 Dyspnea, unspecified (principal); R53.83 Other fatigue; E78.00 Pure hypercholesterolemia, unspecified; F32.A Depression, unspecified; F43.10 Post-traumatic stress disorder, unspecified; Z79.899 Other long term (current) drug therapy; F17.210 Nicotine dependence, cigarettes, uncomplicated
CPT/HCPCS: 71045; 80048; 81001; 84484; 85025; 87426; 93005; 94640; 96360; 96361; 99283; J7030; A4216

== ENCOUNTER 2021-10-02 14:46 | Emergency (ER) | payer MEDICARE, MEDICAID, SELFPAY ==
[2021-10-02] VITALS (12 sets, daily range): BP systolic 133–190; BP diastolic 60–88; PULSE 69–80; RESP 17–90; TEMP 36.1; O2SAT 90–98; BMI 36.6
--- NOTE | 2021-10-02 14:51 | ED.RN ---
Patient tearful when asked regarding suicidal ideations. States I am just scared and not sure how I am going to do dialysis at home. Patient denies intentions, denies plan for suicide.
--- NOTE | 2021-10-02 15:11 | EKG12_ITS ---
Test Reason : SOB Blood Pressure : / mmHG Vent. Rate : 073 BPM Atrial Rate : 073 BPM P-R Int : 154 ms QRS Dur : 094 ms QT Int : 436 ms P-R-T Axes : 062 064 068 degrees QTc Int : 480 ms Normal sinus rhythm Nonspecific ST abnormality Abnormal ECG Confirmed by ISABELLA LENNON, ANDREA ([id number]), metropolitan editor DON JEFFREY ([id number]) on 10/03/2021 12:29:21 PM Referred By: LUCERO Confirmed By:ANDREA MASON MD
--- NOTE | 2021-10-02 15:37 | EDS_ITS ---
HPI <LEFTY Rod - Last Filed: 10/02/21 21:08> History of Present Illness Chief Complaint: Shortness of Breath Narrative Narrative: 61-year-old female with PMH of HTN, HLD, asthma, CKD, renal artery stenosis presents with progressive fatigue, dyspnea on exertion, nausea over the last 6 months. She states her kidneys have been getting worse and she was told she had blockages in the renal arteries. A week and a half ago they did a catheterization procedure at [place] but were unable to stent them. She is a patient of Dr. Dwain Fonseca, wound care center consultant at [facility], who is arranging peritoneal dialysis. He is also been adjusting her BP meds over the last few days. She takes nifedipine 60 mg once daily and clonidine 0.1 mg as needed if her SBP goes above 160. She states today she felt more nauseous and weak which prompted her to come in. PFSH <LEFTY Rod - Last Filed: 10/02/21 21:08> [facility] Medical History (Updated 10/02/21 @ 14:54 by Estefania Mckeon) Anxiety Asthma Depression History of high cholesterol Kidney disease PTSD (post-traumatic stress disorder) Home Medications albuterol sulfate [Ventolin HFA] 2 puff INHALATION Q4H PRN PRN 05/14/18 [History Last Taken 06/21/18] acetaminophen 500 mg PO Q6H PRN PRN 04/18/19 [History Last Taken Unknown] nifedipine 60 mg PO BID 07/15/21 [History Last Taken Unknown] cholecalciferol (vitamin D3) 25 mcg PO DAILY 10/02/21 [History Last Taken Unknown] clonidine HCl 0.1 mg PO DAILY 10/02/21 [History Last Taken Unknown] furosemide 40 mg PO DAILY 10/02/21 [History Last Taken Unknown] omeprazole 40 mg PO DAILY 10/02/21 [History Last Taken Unknown] Allergy/AdvReac Type Severity Reaction Status Date / Time Latex, Natural Rubber Allergy Rash Verified 10/02/21 14:53 Penicillins Allergy Rash Verified 10/02/21 14:53 Surgical History H/O tubal ligation History of section, classical Social History (Updated 04/24/18 @ 15:07 by Stella Faith NP, [employer]) Smoking Status: Current every day smoker tobacco type: cigarettes ROS <LEFTY Rod - Last Filed: 10/02/21 21:08> ROS ED ROS Narrative Constitutional: Positive for malaise. Negative for fever, chills. Eyes: Negative for visual change. ENT: Negative for sore throat, ear pain, rhinorrhea. CVS: Negative for palpitations, chest pain, syncope. Respiratory: Positive for shortness of breath. Negative for cough, orthopnea. GI: Positive for nausea. Negative for abdominal pain, vomiting, diarrhea, constipation, melena, hematochezia. : Negative for dysuria, hematuria or frequency. Neuro: Negative for headache, motor/sensory dysfunction. Skin: Negative for rash, abscess, or wound. Heme: Negative for easy bruising, bleeding, lymphadenopathy. EXAM <LEFTY Rod - Last Filed: 10/02/21 21:08> Physical Exam Narrative Exam Narrative: CONST: Patient sitting in no acute distress. EYES: Normal inspection. ENT: Normal inspection, moist mucous membranes. NECK: Normal inspection. RESP: No respiratory distress, CTAB. CVS: Regular rate and rhythm, no murmur, no gallop. ABD: Soft and nontender, no guarding or rebound, nondistended. SKIN: Color normal, no rash, warm, dry, intact. EXTREMITIES: Normal appearance, trace pedal edema. NEURO: Oriented x4. PSYCH: Normal affect. Const Vital Signs: 10/02/21 14:47 10/02/21 14:51 10/02/21 14:53 Temperature 97.0 F L 97.0 F L Temperature Source Oral Oral Pulse Rate 78 75 Respiratory Rate 19 H 20 H Respiratory Effort Short of Breath Respiratory Depth Normal Respiratory Pattern Normal Blood Pressure 163/70 H 163/70 H Blood Pressure Mean 101 101 Pulse Ox 97 97 Oxygen Delivery Method Room Air Room Air Room Air Oxygen Flow Rate (L/min) 10/02/21 16:00 10/02/21 17:00 10/02/21 17:55 Temperature Temperature Source Pulse Rate 77 80 Respiratory Rate 27 H 21 H Respiratory Effort Respiratory Depth Respiratory Pattern Blood Pressure 173/79 H 190/88 H Blood Pressure Mean 110 122 Pulse Ox 93 91 91 Oxygen Delivery Method Room Air Nasal Cannula Nasal Cannula Oxygen Flow Rate (L/min) 2 2 10/02/21 19:05 10/02/21 19:26 10/02/21 21:00 Temperature Temperature Source Pulse Rate 79 71 Respiratory Rate 90 H 17 Respiratory Effort Respiratory Depth Respiratory Pattern Blood Pressure 187/72 H 187/72 H 140/60 H Blood Pressure Mean 110 110 86 Pulse Ox 90 93 94 Oxygen Delivery Method Nasal Cannula Nasal Cannula Nasal Cannula Oxygen Flow Rate (L/min) 5 5 5 10/02/21 22:07 Temperature Temperature Source Pulse Rate 72 Respiratory Rate 20 H Respiratory Effort Respiratory Depth Respiratory Pattern Blood Pressure 145/71 H Blood Pressure Mean 95 Pulse Ox 93 Oxygen Delivery Method Nasal Cannula Oxygen Flow Rate (L/min) 5 <Dr. Armando Ochoa DO - Last Filed: 10/02/21 22:33> Physical Exam Const Vital Signs: 10/02/21 14:47 10/02/21 14:51 10/02/21 14:53 Temperature 97.0 F L 97.0 F L Temperature Source Oral Oral Pulse Rate 78 75 Respiratory Rate 19 H 20 H Respiratory Effort Short of Breath Respiratory Depth Normal Respiratory Pattern Normal Blood Pressure 163/70 H 163/70 H Blood Pressure Mean 101 101 Pulse Ox 97 97 Oxygen Delivery Method Room Air Room Air Room Air Oxygen Flow Rate (L/min) 10/02/21 16:00 10/02/21 17:00 10/02/21 17:55 Temperature Temperature Source Pulse Rate 77 80 Respiratory Rate 27 H 21 H Respiratory Effort Respiratory Depth Respiratory Pattern Blood Pressure 173/79 H 190/88 H Blood Pressure Mean 110 122 Pulse Ox 93 91 91 Oxygen Delivery Method Room Air Nasal Cannula Nasal Cannula Oxygen Flow Rate (L/min) 2 2 10/02/21 19:05 10/02/21 19:26 10/02/21 21:00 Temperature Temperature Source Pulse Rate 79 71 Respiratory Rate 90 H 17 Respiratory Effort Respiratory Depth Respiratory Pattern Blood Pressure 187/72 H 187/72 H 140/60 H Blood Pressure Mean 110 110 86 Pulse Ox 90 93 94 Oxygen Delivery Method Nasal Cannula Nasal Cannula Nasal Cannula Oxygen Flow Rate (L/min) 5 5 5 10/02/21 22:07 Temperature Temperature Source Pulse Rate 72 Respiratory Rate 20 H Respiratory Effort Respiratory Depth Respiratory Pattern Blood Pressure 145/71 H Blood Pressure Mean 95 Pulse Ox 93 Oxygen Delivery Method Nasal Cannula Oxygen Flow Rate (L/min) 5 MDM <LEFTY Rod - Last Filed: 10/02/21 21:08> MDM MDM Narrative Medical decision making narrative: Patient presents for evaluation of multiple complaints including progressive weakness, nausea, dyspnea on exertion that has been ongoing for months. She is also had intermittent chest pain. She appears well and nontoxic. Vital signs were unremarkable. She has had slightly elevated blood pressures but states her wound care center consultant goal is SBP under 160. On exam her heart is regular rate and rhythm, lungs are clear, abdomen soft and nontender, trace pedal edema is present. Labs show acute anemia of 9.1. She also has renal failure with BUN/creatinine of 43/4.43. Potassium is low at 2.9. Hemoccult was obtained due to the anemia and is negative. After review of records on [facility] [place] from 09/21/21 her hemoglobin was 9.0 and renal function 3.8 so this is not significantly changed. However today her troponin is elevated at 1338. EKG is normal sinus rhythm with no acute ischemic changes. Delta troponin is 1512. Patient's chest pain improved after administration of aspirin and morphine but with rising troponins I am concerned for NSTEMI. She also initially was in the low 90s on room air but became hypoxic and is requiring 5 L nasal cannula. I discussed with the hospitalist who feels with her renal issues and ongoing set up in anticipation of peritoneal dialysis she should be transferred to [facility]. Case was discussed with [facility] press tool maker, Dr. Sammi Angel, who advised heparin and agreed to transfer. Patient will be transferred as soon as a bed becomes a vailable. Diagnoses 1. Chronic renal failure 2. Hypokalemia 3. NSTEMI 4. Hypoxia 5. Anemia Lab Data Labs: Laboratory Results - last 24 hr 10/02/21 10/02/21 10/02/21 15:42 15:42 17:50 WBC 13.2 H RBC 2.88 L Hgb 9.1 L Hct 25.1 L MCV 87.2 MCH 31.6 MCHC 36.3 H RDW Std Deviation 46.7 H RDW Coeff of Lola 14.5 Plt Count 331 MPV 9.1 Immature Gran % (Auto) 0.600 Neut % (Auto) 83.3 H Lymph % (Auto) 9.3 L [place] % (Auto) 5.3 Eos % (Auto) 1.0 Baso % (Auto) 0.5 Absolute Neuts (auto) 11.0 H Absolute Lymphs (auto) 1.23 Nucleated RBC % 0 PT INR APTT Sodium 135 L Potassium 2.9 L Chloride 103 Carbon Dioxide 23.0 Anion Gap 9 BUN 43 H Creatinine 4.43 H Estim Creat Clear Calc 11.22 Est GFR (MDRD) Af Amer 13 L Est GFR (MDRD) Non-Af 11 L BUN/Creatinine Ratio 9.7 L Glucose 137 H Calcium 8.8 Troponin I High Sens 1338 H* 1517 H* 10/02/21 19:42 WBC RBC Hgb Hct MCV MCH MCHC RDW Std Deviation RDW Coeff of Lola Plt Count MPV Immature Gran % (Auto) Neut % (Auto) Lymph % (Auto) [place] % (Auto) Eos % (Auto) Baso % (Auto) Absolute Neuts (auto) Absolute Lymphs (auto) Nucleated RBC % PT 13.4 INR 1.1 APTT 34.3 Sodium Potassium Chloride Carbon Dioxide Anion Gap BUN Creatinine Estim Creat Clear Calc Est GFR (MDRD) Af Amer Est GFR (MDRD) Non-Af BUN/Creatinine Ratio Glucose Calcium Troponin I High Sens Radiography Diagnostic Testing: Clinical Impression(s) from Imaging Studies Chest X-Ray 10/02/21 15:55 IMPRESSION: Chronic appearing basilar interstitial markings with underlying bronchiectasis not excluded. No definite focal airspace disease. Electronically Signed: Landry Guzman DO at 16:12 EST Reading Location ID and State: [address] [place] [address] , Service support , EKG Initial EKG: Attestation: I personally reviewed and interpreted this EKG as follows: Comments: Normal sinus rhythm, 73 bpm, normal intervals and no acute ischemic changes <Dr. Armando Ochoa DO - Last Filed: 10/02/21 22:33> [facility] MDM Narrative Medical decision making narrative: Patient seen and evaluated on arrival by the PA. I agree with her history and physical exam as well as work-up. This is a 61-year-old male who presented with intermittent chest pain as well as complaints of progressive weakness shortness of breath some nausea which had been progressing over the course of months. Her vital signs are stable although she is hypertensive. She has chronic hypertension as well as renal artery stenosis which cannot be stented. It was reported that her goal systolic blood pressure should be under 160. She was given clonidine and her blood pressure has responded and is currently 145/71. EKG was obtained and on my interpretation this is a normal sinus rhythm with a ventricular rate of 71bpm without ST elevation or depression. Patient does also report that she has progressive worsening creatinine and was supposed to be set up at [facility] for peritoneal dialysis that she was not a candidate for a fistula due to poor access. She states they looked repeatedly at [facility]. Patient also has chronic anemia secondary to kidney disease. She has no history of black or bloody stools. She is Hemoccult negative here today. Her hemoglobin is 9.1. Creatinine is elevated at 4.43. Potassium is low at 2.9 and this was repleted. Previously her creatinine was 3.8 and her hemoglobin was 9 on 126 122. High-sensitivity troponin is positive at 1338. Delta troponin elevated at 2 hours is again elevated moving up at 1512. Patient initially reported chest pain had improved. It was noted that she was needing oxygen while she was sleeping however she has been turned up to 5 L currently. Chest x-ray on my interpretation does not show any acute cardiopulmonary process and the r adiologist does agree. Patient was initially attempted to be admitted to [facility] however Dr. Grant he did prefer the patient went to [facility] where she can get her renal care as well as her cardiac care. It is noted that if we cannot get her transfer that we would have to keep her here. The PA did discuss the case with Dr. Sammi Angel at [facility] and heparin drip was started. Patient was accepted in transfer is pending. Patient will have a repeat troponin drawn. Patient will be signed out to incoming ED physician. If the delay to care is prolonged greater than 6 hours we will attempt to admit the patient to [facility]. Patient is currently stable. Diagnoses 1. Chronic renal failure 2. Hypokalemia 3. NSTEMI 4. Hypoxia 5. Anemia Lab Data Attestation: I reviewed the patient's lab results. Labs: Laboratory Results - last 24 hr 10/02/21 10/02/21 10/02/21 15:42 15:42 17:50 WBC 13.2 H RBC 2.88 L Hgb 9.1 L Hct 25.1 L MCV 87.2 MCH 31.6 MCHC 36.3 H RDW Std Deviation 46.7 H RDW Coeff of Lola 14.5 Plt Count 331 MPV 9.1 Immature Gran % (Auto) 0.600 Neut % (Auto) 83.3 H Lymph % (Auto) 9.3 L [place] % (Auto) 5.3 Eos % (Auto) 1.0 Baso % (Auto) 0.5 Absolute Neuts (auto) 11.0 H Absolute Lymphs (auto) 1.23 Nucleated RBC % 0 PT INR APTT Sodium 135 L Potassium 2.9 L Chloride 103 Carbon Dioxide 23.0 Anion Gap 9 BUN 43 H Creatinine 4.43 H Estim Creat Clear Calc 11.22 Est GFR (MDRD) Af Amer 13 L Est GFR (MDRD) Non-Af 11 L BUN/Creatinine Ratio 9.7 L Glucose 137 H Calcium 8.8 Troponin I High Sens 1338 H* 1517 H* 10/02/21 19:42 WBC RBC Hgb Hct MCV MCH MCHC RDW Std Deviation RDW Coeff of Lola Plt Count MPV Immature Gran % (Auto) Neut % (Auto) Lymph % (Auto) [place] % (Auto) Eos % (Auto) Baso % (Auto) Absolute Neuts (auto) Absolute Lymphs (auto) Nucleated RBC % PT 13.4 INR 1.1 APTT 34.3 Sodium Potassium Chloride Carbon Dioxide Anion Gap BUN Creatinine Estim Creat Clear Calc Est GFR (MDRD) Af Amer Est GFR (MDRD) Non-Af BUN/Creatinine Ratio Glucose Calcium Troponin I High Sens Radiography Diagnostic Testing: Clinical Impression(s) from Imaging Studies Chest X-Ray 10/02/21 15:55 IMPRESSION: Chronic appearing basilar interstitial markings with underlying bronchiectasis not excluded. No definite focal airspace disease. Electronically Signed: Landry Guzman DO at 16:12 EST Reading Location ID and State: [facility] / [place] , Service support , Discharge Plan Triage Chief Complaint: Shortness of Breath Other Complaint: Palpitations ED Provider: Lucina Carney Dx/Rx/DC Orders Prescriptions: No Action albuterol sulfate [Ventolin HFA] 1 INHALER inhaler 2 puff inhalation Q4H PRN PRN (Reason: Wheezing) RF: 0 acetaminophen 500 MG tablet 500 mg PO Q6H PRN PRN (Reason: Pain) RF: 0 nifedipine 60 mg Tablet Extended Release 60 mg PO BID RF: 0 furosemide 40 mg tablet 40 mg PO DAILY RF: 0 clonidine HCl 0.1 mg tablet 0.1 mg PO DAILY RF: 0 omeprazole 40 mg capsule,delayed release(DR/EC) 40 mg PO DAILY RF: 0 cholecalciferol (vitamin D3) 25 mcg (1,000 unit) capsule 25 mcg PO DAILY RF: 0 Primary Care Provider: Elvin Becerra
--- NOTE | 2021-10-02 15:55 | RAD_ITS ---
STUDY: X-RAY CHEST REASON FOR EXAM: Female, 61 years old. dyspnea TECHNIQUE: Dyspnea. COMPARISON: None. FINDINGS: Bilateral mid lung atelectatic changes versus scarring is present. Chronic appearing basilar interstitial markings are noted. There is no demonstrated pleural abnormality. Normal size heart. Normal mediastinum and mackenzie. Normal visualized pulmonary arteries. Normal visualized aortic arch and descending thoracic aorta. Normal visualized thoracic spine. Normal visualized ribs, clavicles, and shoulders. There is no demonstrated abnormality of the visualized soft tissue structures of the upper abdomen. RAD/Chest 1 View (Portable) IMPRESSION: Chronic appearing basilar interstitial markings with underlying bronchiectasis not excluded. No definite focal airspace disease. Electronically Signed: Landry Guzman DO at 16:12 EST ,
[2021-10-02] MEDS: Morphine 4 MG/ML Syringe IV (15:59)
[2021-10-02] MEDS: Ondansetron 4 MG/2 ML Vial IV (15:59)
[2021-10-02 16:01] LABS: Absolute Lymphocyte Count 1.23 X10^3/uL (0.83-4.51); Basophil# 0.06 X10^3/uL; Basophil% 0.5 % (0-1); Eosinophil# 0.13 X10^3/uL; Hematocrit 25.1 % (37-47); Hemoglobin 9.1 g/dL (12.0-15.0); Lymphocyte # 1.23 X10^3/ul (0.83-4.51); Lymphocyte % 9.3 % (19-41); Mean Corp Hgb Conc 36.3 g/dL (32-36); Mean Corpuscular Hgb 31.6 pg (27.0-32.0); Mean Corpuscular Volume 87.2 fL (81-99); Mean Platelet Vol. 9.1 fl (6.2-12.0); Monocyte% 5.3 % (0-10); NRBC Flagged by Analyzer 0 % (0-5); Neutrophil # 11.01 X10^3/uL (2.7-7.7); Neutrophil % 83.3 % (47-70); Platelet Count 331 K/mm3 (150-450); RBC Distribution Width CV 14.5 % (11.6-14.6); RBC Distribution Width SD 46.7 fl (35.1-43.9); Red Blood Count 2.88 M/mm3 (4.2-5.4); White Blood Count 13.2 K/mm3 (4.4-11.0)
[2021-10-02 16:21] LABS: Anion Gap 9 (5-15); BUN 43 mg/dL (7-18); BUN/Creat Ratio 9.7 RATIO (10-20); Calcium,Total 8.8 mg/dL (8.5-10.1); Chloride 103 mmol/L (98-107); Creatinine, Serum 4.43 mg/dL (0.55-1.02); EST Glomerular Filtration Rate 11 mL/min (>60); Est Glom Filt Rate - Afr Amer 13 mL/min (>60); Estimated Creatinine Clearance 11.22 ml/min; Glucose 137 mg/dL (74-106); Potassium 2.9 mmol/L (3.5-5.1); Sodium Level 135 mmol/L (136-145); Troponin-I HS 1338 pg/mL (3.0-54.0)
[2021-10-02] MEDS: 0.9% Normal Saline 1,000 ML 999 ML IV (17:00)
[2021-10-02 18:36] LABS: Troponin-I HS 1517 pg/mL (3.0-54.0)
--- NOTE | 2021-10-02 19:13 | ED.RN ---
CALLED [facility] FOR TRANSFER, SAID WE NEED THE COVID RESULTS FIRST
[2021-10-02] MEDS: cloNIDine HCl 0.1 MG Tablet PO (19:25)
[2021-10-02] MEDS: Heparin Injection (Vial) 5,000 UNIT/ML VIAL 7500 UNIT IV (19:59)
[2021-10-02 20:01] LABS: International Normalized Ratio 1.1; Prothrombin Time (Protime)PT. 13.4 SECONDS (11.7-14.9)
[2021-10-02] MEDS: HEPARIN/D5w 25,000 UNITS 25,000 UNITS/250 ML IV.SOLN. 14 UNITS IV (20:01)
[2021-10-02 20:02] LABS: Partial Thromboplast Time 34.3 Seconds (24.1-36.2)
[2021-10-02] MEDS: Aspirin 325 MG Tablet PO (20:03)
[2021-10-02] MEDS: Potassium Chloride Oral Tablet 20 MEQ 40 MEQ PO (21:54)
--- NOTE | 2021-10-02 22:00 | EKG12_ITS ---
Test Reason : REPEAT Blood Pressure : / mmHG Vent. Rate : 071 BPM Atrial Rate : 071 BPM P-R Int : 150 ms QRS Dur : 092 ms QT Int : 440 ms P-R-T Axes : 054 044 051 degrees QTc Int : 478 ms Normal sinus rhythm Nonspecific ST abnormality Abnormal ECG Confirmed by ISABELLA LENNON, ANDREA ([id number]), order editor DON JEFFREY ([id number]) on 10/03/2021 12:28:05 PM Referred By: RAFIA Confirmed By:ANDREA MASON MD
[2021-10-02] MEDS: fentaNYL 100 MCG/2 ML Ampul 25 MCG IV (22:05)
[2021-10-02 22:47] LABS: Troponin-I HS 2056 pg/mL (3.0-54.0)
== END 2021-10-03 00:18 | disposition short-term general hospital (02) ==
PROVIDERS: Student in an Organized Health Care Education/Training Program; Emergency Provider Physician Assistant; PCP Family Medicine; Visit Provider Physician Assistant
DX: I12.9 Hypertensive chronic kidney disease with stage 1 through stage 4 chronic kidney disease, or unspecified chronic kidney disease (principal); I70.1 Atherosclerosis of renal artery; I21.4 Non-ST elevation (NSTEMI) myocardial infarction; E78.00 Pure hypercholesterolemia, unspecified; D63.1 Anemia in chronic kidney disease; E87.6 Hypokalemia; N18.9 Chronic kidney disease, unspecified; E78.5 Hyperlipidemia, unspecified; F17.210 Nicotine dependence, cigarettes, uncomplicated; F32.A Depression, unspecified; F43.10 Post-traumatic stress disorder, unspecified; J45.909 Unspecified asthma, uncomplicated; Z79.899 Other long term (current) drug therapy; D64.9 Anemia, unspecified; R09.02 Hypoxemia; F41.9 Anxiety disorder, unspecified
CPT/HCPCS: 71045; 80048; 82274; 84484; 85025; 85610; 85730; 87426; 93005; 96361; 96365; 96366; 96374; 96375; 99285; J7030; A4216; J2405

== ENCOUNTER 2021-10-15 08:20 | Outpatient (REF) | payer SELFPAY ==
[2021-10-15 09:26] LABS: Hematocrit 24.3 % (37-47); Hemoglobin 8.2 g/dL (12.0-15.0); Mean Corp Hgb Conc 33.7 g/dL (32-36); Mean Corpuscular Hgb 31.1 pg (27.0-32.0); Mean Platelet Vol. 10.2 fl (6.2-12.0); Platelet Count 331 K/mm3 (150-450); RBC Distribution Width CV 15.3 % (11.6-14.6); RBC Distribution Width SD 50.7 fl (35.1-43.9); Red Blood Count 2.64 M/mm3 (4.2-5.4); White Blood Count 11.8 K/mm3 (4.4-11.0)
[2021-10-15 09:52] LABS: Albumin, Serum 2.8 g/dL (3.2-5.0); Anion Gap 9 (5-15); BUN 47 mg/dL (7-18); BUN/Creat Ratio 11.8 RATIO (10-20); Chloride 97 mmol/L (98-107); EST Glomerular Filtration Rate 12 mL/min (>60); Est Glom Filt Rate - Afr Amer 15 mL/min (>60); Glucose 176 mg/dL (74-106); Potassium 3.7 mmol/L (3.5-5.1); Sodium Level 133 mmol/L (136-145)
[2021-10-15 10:43] LABS: Hemoglobin A1c 5.5 % (3.8-5.6)
[2021-10-17 09:44] LABS: Vitamin D,25 Hydroxy 32.6 ng/mL
== END 2021-10-15 23:59 | disposition home or self-care (01) ==
LOC: OLS.SW300 08:20
PROVIDERS: PCP Family Medicine; Referring Provider Internal Medicine; Visit Provider Internal Medicine
DX: E11.22 Type 2 diabetes mellitus with diabetic chronic kidney disease (principal); Z99.2 Dependence on renal dialysis; I50.9 Heart failure, unspecified; N18.5 Chronic kidney disease, stage 5; E78.5 Hyperlipidemia, unspecified; D64.9 Anemia, unspecified
CPT/HCPCS: 36415; 80048; 82040; 82306; 83036; 84443; 85027

== ENCOUNTER 2022-11-14 08:59 | Emergency (ER) | payer MEDICARE, MEDICAID, SELFPAY ==
[2022-11-14 09:00] VITALS: BP 170/68; PULSE 68; RESP 15; TEMP 36.5; O2SAT 93; BMI 30.7
--- NOTE | 2022-11-14 09:14 | EX.ED.DYSGE1 ---
HPI History of Present Illness Chief Complaint: Shortness of Breath Narrative Narrative: 62-year-old for male past medical history of hypertension, asthma, end-stage renal disease, gets dialysis every Sunday, , and Sunday presents with shortness of breath that she had at dialysis this morning. She last received her complete dialysis on Sunday, 3 days ago. She was at dialysis and felt like she could not breathe. She states that she felt like she had a wound VAC on her and that the air was getting sucked out. She used her albuterol inhaler without relief of her symptoms. She states that in she felt like she had a panic attack. EMS was called and after the nebulizer treatment, she feels improved. She is a smoker. She denies any fevers or chills. She has a chronic cough. She states she does not see a alteration worker. No increased welling of her legs, no other symptoms. She states that its been a while since she has been on steroids for her breathing. [facility] Medical History Anxiety Asthma Depression History of high cholesterol Kidney disease PTSD (post-traumatic stress disorder) Home Medications albuterol sulfate 90 mcg/actuation aerosol inhaler (Ventolin HFA) 2 puff inhalation Q4H PRN PRN Wheezing 05/14/18 [History Last Taken 06/21/18] acetaminophen 500 mg tablet 500 mg PO Q6H PRN PRN Pain 04/18/19 [History Last Taken Unknown] nifedipine 60 mg tablet,extended release 60 mg PO BID 07/15/21 [History Last Taken Unknown] cholecalciferol (vitamin D3) 25 mcg (1,000 unit) capsule 25 mcg PO DAILY 10/02/21 [History Last Taken Unknown] clonidine HCl 0.1 mg tablet 0.1 mg PO DAILY 10/02/21 [History Last Taken Unknown] furosemide 40 mg tablet 40 mg PO DAILY 10/02/21 [History Last Taken Unknown] omeprazole 40 mg capsule,delayed release 40 mg PO DAILY 10/02/21 [History Last Taken Unknown] albuterol sulfate 90 mcg/actuation aerosol inhaler (Ventolin HFA) 1 - 2 puff inhalation Q4H PRN PRN Wheezing #1 ea 11/14/22 [Rx Last Taken Unknown] prednisone 20 mg tablet 40 mg PO DAILY #14 tabs 11/14/22 [Rx Last Taken Unknown] Allergy/AdvReac Type Severity Reaction Status Date / Time Latex, Natural Rubber Allergy Rash Verified 10/02/21 14:53 Penicillins Allergy Rash Verified 10/02/21 14:53 Surgical History H/O tubal ligation History of section, classical Social History Smoking Status: Current every day smoker tobacco type: cigarettes ROS ROS ED ROS Narrative Constitutional: No fever, no chills. HEENT: No sore throat. No neck pain. No loss of vision. No rhinorrhea. Cardiovascular: No chest pain. No palpitations. No pedal edema. Respiratory: Chronic cough, positive shortness of breath. Abdominal: No abdominal pain. No nausea. No vomiting. Genitourinary: No dysuria. No hematuria. Musculoskeletal: No myalgias. No arthralgias. Neurologic: No headaches. No dizziness. No lightheadedness. Skin: No rash. No change in color. Psychiatric: No depression. No anxiety. EXAM Physical Exam Narrative Exam Narrative: Afebrile. Vital signs noted. HEENT: Normocephalic. Atraumatic. PERRL, EOMI. Neck soft and supple. No point tenderness or step off. Cardiovascular: Regular rate and rhythm. No murmurs, rubs, or gallops appreciated. Respiratory: No tachypnea. Positive expiratory wheezing. Speaking in full sentences. Gastrointestinal: Abdomen soft, nontender, with normoactive bowel sounds. No rebound or guarding. Neurological: Awake. Alert. Nonfocal, nonlateralizing. Skin: No rash. Normal color. No pallor. Musculoskeletal: No pedal edema. Full range of motion extremities. Theatric: Calm, cooperative. Const Vital Signs: 11/14/22 09:00 11/14/22 09:24 11/14/22 10:29 Temperature 97.7 F L Temperature Source Oral Pulse Rate 68 64 Respiratory Rate 15 22 H Respiratory Pattern Tachypnea Blood Pressure 170/68 H Blood Pressure Mean 102 Pulse Ox 93 85 Oxygen Delivery Method Room Air Room Air Oxygen Flow Rate (L/min) 11/14/22 10:29 11/14/22 11:02 Temperature Temperature Source Pulse Rate 74 Respiratory Rate 18 21 H Respiratory Pattern Blood Pressure 168/68 H Blood Pressure Mean 101 Pulse Ox 92 95 Oxygen Delivery Method Nasal Cannula Nasal Cannula Oxygen Flow Rate (L/min) 2 2 MDM MDM MDM Narrative Medical decision making narrative: I do feel that the patient may have underlying COPD and not simply asthma. She was administered Solu-Medrol 125 mg intravenously. She will be given another DuoNeb aerosolized treatment for her continued wheezing. Currently pulse ox 93% on room air. I will obtain a chest x-ray to rule out a pneumonia or pneumothorax. I do feel that she may have had a panic attack afterwards as she has a history of anxiety in review of her EMR. Additionally, in review of her prior ED visit, about a month ago she presented with shortness of breath and dyspnea. I will check her electrolytes to make sure she does not require emergent dialysis. EKG was obtained and interpreted by myself as normal sinus rhythm at 66 bpm without ectopy or acute ST changes. No STEMI. No significant change from EKG reviewed from October 02, 2021. I reviewed her laboratory work, she has slightly elevated white count of 11.6 which I think is nonspecific, hemoglobin stable at 10.8, hematocrit 31.7. Normal platelet count of 188. Potassium is slightly low at 3.2, BUN is elevated at 19 and creatinine 2.56 consistent with her end-stage renal disease. Glucose appropriately elevated at 114 with a normal anion gap of 7. Chest x-ray interpreted by myself shows no acute process, no significant fluid overload. I reviewed the radiology report which confirms my independent interpretation. After Solu-Medrol and a DuoNeb aerosolized treatment, she states she is feeling markedly improved. However, at rest she had transient hypoxia at 84% was placed on 2-1/2 L. She may have a VQ mismatch after her aerosols and steroids. However, given the significant hypoxia, I discussed with her observation overnight. Patient states that she would like to sign out AGAINST MEDICAL ADVICE because she has a dog and 5 cats at home that no one else can care for. She was not hypoxic when she made this decision, and I do feel that she has the capacity to sign out AGAINST MEDICAL ADVICE. She was told that she can return to the emergency department at any time for reevaluation. I will still write her prescription for an albuterol inhaler to use every 4-6 hours, and for prednisone burst of 40 mg daily for the next week. She will follow-up with her primary care physician. Additionally, as she is signing out AGAINST MEDICAL ADVICE she was advised to call her land department head to see when she should have her dialysis performed, whether it be tonight, tomorrow, or if he can wait until , during her next scheduled appointment. Disposition is signed out AGAINST MEDICAL ADVICE. Patient is in stable condition. History & Record Review Discussion w/independent historian: Patient Additional record(s) reviewed:: Prior ED visit Lab Data Attestation: I reviewed the patient's lab results. Labs: Laboratory Results - last 24 hr 11/14/22 11/14/22 09:25 09:25 WBC 11.6 H RBC 3.26 L Hgb 10.8 L Hct 31.7 L MCV 97.2 MCH 33.1 H MCHC 34.1 RDW Std Deviation 47.2 H RDW Coeff of Lola 13.2 Plt Count 188 MPV 9.7 Immature Gran % (Auto) 0.400 Neut % (Auto) 75.8 H Lymph % (Auto) 13.9 L [place] % (Auto) 7.4 Eos % (Auto) 2.0 Baso % (Auto) 0.5 Absolute Neuts (auto) 8.8 H Absolute Lymphs (auto) 1.60 Nucleated RBC % 0 Sodium 138 Potassium 3.2 L Chloride 101 Carbon Dioxide 30.0 Anion Gap 7 BUN 19 H Creatinine 2.56 H Estim Creat Clear Calc 19.98 Est GFR (MDRD) Af Amer 24 L Est GFR (MDRD) Non-Af 20 L BUN/Creatinine Ratio 7.4 L Glucose 114 H Calcium 8.7 Radiography Diagnostic Testing: Clinical Impression(s) from Imaging Studies Chest X-Ray 11/14/22 09:30 IMPRESSION: No acute abnormality is seen. Electronically Signed: Richard Ndiaye MD at 9:56 EDT , Discharge Plan Triage Chief Complaint: Shortness of Breath ED Provider: Reggie Quintanilla Dx/Rx/DC Orders Clinical Impression: Shortness of breath, Hypoxia, Left against medical advice Instructions: ED COPD Flare, ED Dyspnea Prescriptions: New albuterol sulfate [Ventolin HFA] 90 mcg/actuation HFA aerosol inhaler 1 - 2 puff inhalation Q4H PRN PRN (Reason: Wheezing) Qty: 1 0RF prednisone 20 mg tablet 40 mg PO DAILY Qty: 14 0RF No Action albuterol sulfate [Ventolin HFA] 1 INHALER inhaler 2 puff inhalation Q4H PRN PRN (Reason: Wheezing) acetaminophen 500 MG tablet 500 mg PO Q6H PRN PRN (Reason: Pain) nifedipine 60 mg Tablet Extended Release 60 mg PO BID furosemide 40 mg tablet 40 mg PO DAILY Label Comments: Take 1 tablet by mouth once daily. clonidine HCl 0.1 mg tablet 0.1 mg PO DAILY Label Comments: Take 1 tablet by mouth three times daily as needed (for Upper blood pressure number >160). omeprazole 40 mg capsule,delayed release(DR/EC) 40 mg PO DAILY Label Comments: Take 1 capsule by mouth once daily. cholecalciferol (vitamin D3) 25 mcg (1,000 unit) capsule 25 mcg PO DAILY Label Comments: Take 1 capsule by mouth once daily. Primary Care Provider: Elvin Becerra Referrals: Elvin Becerra MD [Primary Care Provider] - As soon as possible Activity Restrictions/Additional Instructions: Call your land department head to see when you should have dialysis, either later today, tomorrow, or if they want you to wait until . Disposition Disposition: Against Medical Advice
[2022-11-14] MEDS: Ipratropium/Albuterol Sulfate 3 ML AMPUL.NEB INHALATION (09:23)
[2022-11-14 09:24] VITALS: PULSE 64; RESP 22
[2022-11-14] MEDS: MethylPREDNISolone 125 MG/2 ML Vial IV (09:30)
--- NOTE | 2022-11-14 09:30 | RAD_ITS ---
STUDY: X-RAY CHEST REASON FOR EXAM: Female, 62 years old. Shortness of Breath TECHNIQUE: Single AP portable view of the chest. COMPARISON: Comparison is made with prior study dated October 02, 2021. FINDINGS: A right-sided double catheter seen with the tip at the junction of the superior vena cava and right atrium. EKG methods are seen. Surgical clips are seen in the right axilla. The lungs are clear and expanded. There is no demonstrated pleural abnormality. There is mild cardiac enlargement. Normal mediastinum and mackenzie. Normal visualized pulmonary arteries. There is atherosclerotic calcification of the aortic arch with tortuosity. Normal visualized thoracic spine. Normal visualized ribs, clavicles, and shoulders. Findings suggestive of a small hiatal hernia. RAD/Chest 1 View (Portable) IMPRESSION: No acute abnormality is seen. Electronically Signed: Richard Ndiaye MD at 9:56 EDT ,
[2022-11-14 09:41] LABS: Absolute Neutrophil Count 8.8 X10^3/uL (2.0-7.7); Basophil# 0.06 X10^3/uL; Basophil% 0.5 % (0-1); Eosinophil# 0.23 X10^3/uL; Hematocrit 31.7 % (37-47); Hemoglobin 10.8 g/dL (12.0-15.0); Lymphocyte % 13.9 % (19-41); Mean Corp Hgb Conc 34.1 g/dL (32-36); Mean Corpuscular Hgb 33.1 pg (27.0-32.0); Mean Corpuscular Volume 97.2 fL (81-99); Mean Platelet Vol. 9.7 fl (6.2-12.0); Monocyte# 0.86 X10^3/uL; Monocyte% 7.4 % (0-10); NRBC Flagged by Analyzer 0 % (0-5); Neutrophil # 8.75 X10^3/uL (2.7-7.7); Neutrophil % 75.8 % (47-70); Platelet Count 188 K/mm3 (150-450); RBC Distribution Width CV 13.2 % (11.6-14.6); RBC Distribution Width SD 47.2 fl (35.1-43.9); Red Blood Count 3.26 M/mm3 (4.2-5.4); White Blood Count 11.6 K/mm3 (4.4-11.0)
[2022-11-14 09:53] LABS: Anion Gap 7 (5-15); BUN 19 mg/dL (7-18); BUN/Creat Ratio 7.4 RATIO (10-20); Calcium,Total 8.7 mg/dL (8.5-10.1); Chloride 101 mmol/L (98-107); Creatinine, Serum 2.56 mg/dL (0.55-1.02); EST Glomerular Filtration Rate 20 mL/min (>60); Est Glom Filt Rate - Afr Amer 24 mL/min (>60); Estimated Creatinine Clearance 19.98 ml/min; Glucose 114 mg/dL (74-106); Potassium 3.2 mmol/L (3.5-5.1); Sodium Level 138 mmol/L (136-145)
[2022-11-14 10:29] VITALS: RESP 18; O2SAT 85; O2SAT 92
[2022-11-14 11:02] VITALS: BP 168/68; PULSE 74; RESP 21; O2SAT 95
[2022-11-14 11:16] VITALS: O2SAT 91
--- NOTE | 2022-11-14 11:33 | ED.RN ---
pt leaving against medication advice. encouraged pt to see if someone could help with her animals so she could return and be admitted. pt states that she needs to find someone to take her animals d/t her having a hard time caring for them. this rn recommended calling the [facility] to see if the could assist.
[2022-11-14 11:35] VITALS: BP 166/58; PULSE 76; RESP 18; O2SAT 87
== END 2022-11-14 11:36 | disposition left against medical advice (07) ==
PROVIDERS: Emergency Provider Emergency Medicine; PCP Family Medicine; Visit Provider Emergency Medicine
DX: Z53.29 Procedure and treatment not carried out because of patient's decision for other reasons (principal); Z99.2 Dependence on renal dialysis; N18.6 End stage renal disease; I12.0 Hypertensive chronic kidney disease with stage 5 chronic kidney disease or end stage renal disease; R06.02 Shortness of breath; E78.00 Pure hypercholesterolemia, unspecified; F17.210 Nicotine dependence, cigarettes, uncomplicated; R09.02 Hypoxemia; Z79.52 Long term (current) use of systemic steroids
CPT/HCPCS: 71045; 80048; 85025; 93005; 94640; A4216

== ENCOUNTER 2022-11-14 14:38 | Inpatient (IN) | payer MEDICARE, MEDICAID, SELFPAY ==
[2022-11-14] VITALS (8 sets, daily range): BP systolic 139–179; BP diastolic 50–72; PULSE 70–75; RESP 11–18; TEMP 36.4–36.8; O2SAT 92–95; BMI 31.7; BMI 29.8
--- NOTE | 2022-11-14 14:54 | ED.VIS.DYS ---
HPI History of Present Illness Chief Complaint: Cough Narrative Narrative: 62-year-old female past medical history of end-stage renal disease, asthma, smoker, was seen earlier in the emergency department by myself and then subsequently signed out AGAINST MEDICAL ADVICE. She was evaluated for shortness of breath and anxiety earlier this morning, but signed out AGAINST MEDICAL ADVICE because she needed to take care of her dog and 5 cats at home. She states that while she was at home taking care of her animals, she became dyspneic on exertion. Upon arrival to the ED, she was still hypoxic at 85 to 88% on room air. She does not wear oxygen at home. [facility] Medical History Anxiety Asthma Depression History of high cholesterol Kidney disease PTSD (post-traumatic stress disorder) Home Medications albuterol sulfate 90 mcg/actuation aerosol inhaler (Ventolin HFA) 2 puff inhalation Q4H PRN PRN Wheezing 05/14/18 [History Last Taken 06/21/18] acetaminophen 500 mg tablet 500 mg PO Q6H PRN PRN Pain 04/18/19 [History Last Taken Unknown] nifedipine 60 mg tablet,extended release 60 mg PO BID 07/15/21 [History Last Taken Unknown] cholecalciferol (vitamin D3) 25 mcg (1,000 unit) capsule 25 mcg PO DAILY 10/02/21 [History Last Taken Unknown] albuterol sulfate 90 mcg/actuation aerosol inhaler (Ventolin HFA) 1 - 2 puff inhalation Q4H PRN PRN Wheezing #1 ea 11/14/22 [Rx Last Taken Unknown] aspirin 81 mg tablet,delayed release 81 mg PO DAILY 11/14/22 [History Last Taken Unknown] atorvastatin 80 mg tablet 80 mg PO DAILY 11/14/22 [History Last Taken Unknown] carvedilol 25 mg tablet 25 mg PO BID 11/14/22 [History Last Taken Unknown] clonidine 0.1 mg/24 hr weekly transdermal patch 1 patch transdermal QWEEK 11/14/22 [History Last Taken Unknown] clopidogrel 75 mg tablet 75 mg PO DAILY 11/14/22 [History Last Taken Unknown] furosemide 80 mg tablet (Lasix) See Rx Instructions .Route .COMPLEX 11/14/22 [History Last Taken Unknown] mirtazapine 7.5 mg tablet 7.5 mg PO DAILY 11/14/22 [History Last Taken Unknown] pantoprazole 40 mg tablet,delayed release 40 mg PO DAILY 11/14/22 [History Last Taken Unknown] prednisone 20 mg tablet 50 mg PO DAILY 11/14/22 [History Last Taken Unknown] sevelamer carbonate 800 mg tablet 800 mg PO TIDCM 11/14/22 [History Last Taken Unknown] vitamin B complex-vitamin C-folic acid 0.8 mg tablet (Mojgan-Kirk) 1 tab PO DAILY 11/14/22 [History Last Taken Unknown] Allergy/AdvReac Type Severity Reaction Status Date / Time Latex, Natural Rubber Allergy Rash Verified 11/14/22 14:44 Penicillins Allergy Rash Verified 11/14/22 14:44 Surgical History H/O tubal ligation History of section, classical Social History Smoking Status: Current every day smoker tobacco type: cigarettes ROS ROS ED ROS Narrative Constitutional: No fever, no chills. HEENT: No sore throat. No neck pain. No loss of vision. No rhinorrhea. Cardiovascular: No chest pain. No palpitations. No pedal edema. Respiratory: No cough, positive shortness of breath and dyspnea on exertion. Abdominal: No abdominal pain. No nausea. No vomiting. Genitourinary: No dysuria. No hematuria. Musculoskeletal: No myalgias. No arthralgias. Neurologic: No headaches. No dizziness. No lightheadedness. Skin: No rash. No change in color. Psychiatric: No depression. Positive anxiety. States was scared to be at home alone secondary to her breathing difficulty. EXAM Physical Exam Narrative Exam Narrative: Afebrile. Vital signs noted. HEENT: Normocephalic. Atraumatic. PERRL, EOMI. Neck soft and supple. No point tenderness or step off. Cardiovascular: Regular rate and rhythm. No murmurs, rubs, or gallops appreciated. Respiratory: No tachypnea. Coarse breath sounds bilaterally, positive occasional expiratory wheezing. Gastrointestinal: Abdomen soft, nontender, with normoactive bowel sounds. No rebound or guarding. Neurological: Awake. Alert. Nonfocal, nonlateralizing. Skin: No rash. Normal color. No pallor. Musculoskeletal: No pedal edema. Full range of motion extremities. Const Vital Signs: 11/14/22 14:39 11/14/22 14:46 Temperature 98.2 F 98.2 F Temperature Source Temporal Temporal Pulse Rate 74 73 Respiratory Rate 18 16 Blood Pressure 179/63 H 174/72 H Blood Pressure Mean 101 106 Pulse Ox 92 92 Oxygen Delivery Method Room Air Nasal Cannula Oxygen Flow Rate (L/min) 2 MDM MDM MDM Narrative Medical decision making narrative: She had a work-up for her hypoxia and shortness of breath earlier this morning. I feel she is having more of a COPD exacerbation. Smoking cessation was once again discussed. She will be given a DuoNeb aerosolized treatment here. I discussed the patient with Dr. Sanders for admission to the medical surgical floor. Patient is in stable condition. Disposition is admit. History & Record Review Discussion w/independent historian: Patient Additional record(s) reviewed:: Prior ED visit Discharge Plan Dx/Rx/DC Orders Clinical Impression: Shortness of breath, Hypoxia, COPD exacerbation, Smoker Disposition Disposition: Acute Care Hospital [facility]
[2022-11-14] MEDS: Ipratropium/Albuterol Sulfate 3 ML AMPUL.NEB INHALATION ×2 (15:09→18:57)
--- NOTE | 2022-11-14 15:58 | HP.PCM.HOS_ITS ---
HPI - General General Date of Admission: 11/14/22 HPI Narrative BARI LAUGHLIN, is a 62 F who presents to the hospital this morning with significant shortness of breath at that time she was found to be 85% on room air and was started on oxygen however she decided to leave AMA. She had gotten short of breath while at dialysis and did not even complete a full run of dialysis today. She reported to the hospital by 3 hours after she left AMA because she was short of breath and panicking at home she called EMS. On return to the ER she was found to be 87% on room air and started back on oxygen. She did initially have some respiratory distress with tachypnea and disordered breathing however at the time of my evaluation she was more comfortable. Her white count is little bit elevated her hemoglobin is stable her renal function is at 2.56 unclear as to what her baseline is but she does receive dialysis every Sunday, , Sunday. Chest x-ray today was unremarkable. She states that she has a history of asthma but is never been told whether or not she has COPD, she is a smoker was never followed with pulmonology as an outpatient. [facility] Medical History (Updated 11/14/22 @ 16:10 by Bindu Mejias) Anxiety Asthma Congestive heart failure (CHF) Coronary artery disease Depression Diabetes Dialysis patient History of high cholesterol Kidney disease Migraines Myocardial infarct PTSD (post-traumatic stress disorder) Sleep apnea Substance abuse Home Medications albuterol sulfate 90 mcg/actuation aerosol inhaler (Ventolin HFA) 2 puff inhalation Q4H PRN PRN Wheezing 05/14/18 [History Last Taken 06/21/18] acetaminophen 500 mg tablet 500 mg PO Q6H PRN PRN Pain 04/18/19 [History Last Taken Unknown] nifedipine 60 mg tablet,extended release 60 mg PO BID 07/15/21 [History Last Taken Unknown] cholecalciferol (vitamin D3) 25 mcg (1,000 unit) capsule 25 mcg PO DAILY 10/02/21 [History Last Taken Unknown] albuterol sulfate 90 mcg/actuation aerosol inhaler (Ventolin HFA) 1 - 2 puff inhalation Q4H PRN PRN Wheezing #1 ea 11/14/22 [Rx Last Taken Unknown] aspirin 81 mg tablet,delayed release 81 mg PO DAILY 11/14/22 [History Last Taken Unknown] atorvastatin 80 mg tablet 80 mg PO DAILY 11/14/22 [History Last Taken Unknown] carvedilol 25 mg tablet 25 mg PO BID 11/14/22 [History Last Taken Unknown] clonidine 0.1 mg/24 hr weekly transdermal patch 1 patch transdermal QWEEK 11/14/22 [History Last Taken Unknown] clopidogrel 75 mg tablet 75 mg PO DAILY 11/14/22 [History Last Taken Unknown] furosemide 80 mg tablet (Lasix) See Rx Instructions .Route .COMPLEX 11/14/22 [History Last Taken Unknown] mirtazapine 7.5 mg tablet 7.5 mg PO DAILY 11/14/22 [History Last Taken Unknown] pantoprazole 40 mg tablet,delayed release 40 mg PO DAILY 11/14/22 [History Last Taken Unknown] prednisone 20 mg tablet 50 mg PO DAILY 11/14/22 [History Last Taken Unknown] sevelamer carbonate 800 mg tablet 800 mg PO TIDCM 11/14/22 [History Last Taken Unknown] vitamin B complex-vitamin C-folic acid 0.8 mg tablet (Mojgan-Kirk) 1 tab PO DAILY 11/14/22 [History Last Taken Unknown] Allergy/AdvReac Type Severity Reaction Status Date / Time Latex, Natural Rubber Allergy Rash Verified 11/14/22 14:44 Penicillins Allergy Rash Verified 11/14/22 14:44 Family History (Updated 11/14/22 @ 16:[address] Valnetin Sanders MD) Other CAD (coronary artery disease) Heart disease Surgical History (Updated 11/14/22 @ 16:07 by Bindu Mejias) H/O tubal ligation History of section, classical History of coronary artery stent placement Social History Smoking Status: Current every day smoker tobacco type: cigarettes ROS Constitutional Constitutional: Denies chills, fatigue, fever(s) or malaise Eyes Eyes: Denies blurry vision ENT HEENT: Denies headache(s) or nasal discharge Cardiovascular Cardiovascular: Denies chest pain, dyspnea on exertion or syncope Respiratory/Chest Respiratory/Chest: Reports shortness of breath at rest and shortness of breath with exertion; Denies cough Gastrointestinal Gastrointestinal: Denies constipation, diarrhea, nausea or vomiting Genitourinary Genitourinary: Denies dysuria Neurologic Neurologic: Denies focal weakness, numbness or tremor(s) Psychiatric Psychiatric: Denies anxiety or depression Vital Signs Vital Signs Vital Signs: 11/14/22 14:39 11/14/22 14:46 11/14/22 15:11 Temperature 98.2 F 98.2 F Temperature Source Temporal Temporal Pulse Rate 74 73 74 Respiratory Rate 18 16 16 Respiratory Effort Respiratory Depth Respiratory Pattern Normal Blood Pressure 179/63 H 174/72 H Blood Pressure Mean 101 106 Pulse Ox 92 92 Oxygen Delivery Method Room Air Nasal Cannula Oxygen Flow Rate (L/min) 2 11/14/22 15:11 11/14/22 15:39 Temperature 97.5 F L Temperature Source Temporal Pulse Rate 75 Respiratory Rate 16 Respiratory Effort Pursed Lip Respiratory Depth Shallow Respiratory Pattern Normal Blood Pressure 139/70 H Blood Pressure Mean 93 Pulse Ox 94 Oxygen Delivery Method Nasal Cannula Nasal Cannula Oxygen Flow Rate (L/min) 2 3 Weight Weight: 184 lb 11.958 oz Body Mass Index (BMI) 31.7 Physical Exam Narrative General: Alert, Oriented x3, Cooperative, No apparent distress HEENT: Atraumatic, PERRLA, EOMI, Normocephalic Oral: Moist Mucosa Neck: Supple, No JVD Lungs: Diminished, Normal air movement, No rhonchi, wheeze, No rales Cardiovascular: Regular rate, Regular Rhythm, Normal S1, Normal S2, No murmurs Abdomen: Soft, Non Tender, Non-Distended, No Hepato-splenomegaly Extremities: No edema, Capillary Refill Less than 3 Seconds, she has a right upper arm scar from her fistula with a thrill monitor wound Skin: No rashes, No breakdown Musculoskeletal: No Tenderness to Palpation of Joints or Extremities Neurological: Cranial nerves II-XII grossly intact, Motor Exam 5/5 strength throughout, Sensory exam intact to light touch and pain Psych/Mental Status: Normal Affect, Appropriate Assessment & Plan Assessment/Plan (1) Hypoxia: (2) COPD exacerbation: PLAN: Plan 1. Acute hypoxia with COPD exacerbation ? Continue with steroids and nebulizers ? Would recommend outpatient follow-up with pulmonology ? Chest x-ray was negative for any acute pathology ? Wean oxygen as able 2. HTN/HLD/CAD status post stent ? Blood pressures are currently stable ? Can resume her aspirin and Plavix as well as her Lipitor ? Can also resume her home Lasix and monitor her renal function ? Can resume all of her home pressure medications 3. End-stage renal disease on dialysis ? We will consult nephrology for dialysis ? She did have recent fistula surgery on her right upper extremity, wound is about 2 weeks old with significant scar burden and surrounding vascular issues, will monitor consult wound care 4. GERD ? Stable ? Continue with PPI DVT: SCDs Spent 75 minutes in chart review and in direct patient care Charges/Coding Visit Charges Inpatient E&M: 63457 Init Hosp L3
--- NOTE | 2022-11-14 16:37 | NURSING ---
acute dialysis nurse informed of patient's admittence w/ nephrology consulted.
[2022-11-14] MEDS: SEVELAMER CARBONATE 800 MG TABLET PO (17:17)
[2022-11-14] MEDS: NIFEdipine 60 MG Tablet PO (17:17)
[2022-11-14] MEDS: Carvedilol 25 MG Tablet PO (17:17)
[2022-11-14] MEDS: Atorvastatin Calcium 80 MG Tablet PO (17:17)
[2022-11-14] MEDS: 0.9% Saline Lock 10 ML Syringe IV ×2 (17:18→21:52)
[2022-11-15] VITALS (14 sets, daily range): BP systolic 137–205; BP diastolic 56–97; PULSE 63–83; RESP 18; TEMP 36.6–36.9; O2SAT 94–99
[2022-11-15] MEDS: 0.9% Saline Lock 10 ML Syringe IV ×6 (03:08→20:49)
[2022-11-15] MEDS: hydrALAZINE 20 MG/ML Vial 10 MG IV ×2 (03:08→15:31)
[2022-11-15] MEDS: Mirtazapine 15 MG Tablet 7.5 MG PO (05:34)
[2022-11-15] MEDS: Pantoprazole Sodium 40 MG Tablet PO (05:36)
[2022-11-15] MEDS: Carvedilol 25 MG Tablet PO ×2 (05:36→20:49)
[2022-11-15] MEDS: Aspirin E.C. 81 MG Tablet PO (05:36)
[2022-11-15] MEDS: Furosemide 80 MG Tablet PO ×2 (05:36→18:04)
[2022-11-15 05:37] LABS: Absolute Lymphocyte Count 0.89 X10^3/uL (0.83-4.51); Basophil# 0.01 X10^3/uL; Basophil% 0.1 % (0-1); Hemoglobin 10.7 g/dL (12.0-15.0); Lymphocyte # 0.89 X10^3/ul (0.83-4.51); Lymphocyte % 9.6 % (19-41); Mean Corp Hgb Conc 33.4 g/dL (32-36); Mean Corpuscular Hgb 33.2 pg (27.0-32.0); Mean Corpuscular Volume 99.4 fL (81-99); Mean Platelet Vol. 9.9 fl (6.2-12.0); Monocyte# 0.31 X10^3/uL; Monocyte% 3.3 % (0-10); NRBC Flagged by Analyzer 0 % (0-5); Neutrophil # 8.01 X10^3/uL (2.7-7.7); Neutrophil % 86.1 % (47-70); Platelet Count 200 K/mm3 (150-450); RBC Distribution Width CV 13.2 % (11.6-14.6); RBC Distribution Width SD 48.4 fl (35.1-43.9); Red Blood Count 3.22 M/mm3 (4.2-5.4); White Blood Count 9.3 K/mm3 (4.4-11.0)
[2022-11-15] MEDS: Clopidogrel Bisulfate 75 MG Tablet PO (05:37)
[2022-11-15 05:58] LABS: Anion Gap 8 (5-15); BUN 34 mg/dL (7-18); BUN/Creat Ratio 8.3 RATIO (10-20); Calcium,Total 9.3 mg/dL (8.5-10.1); Chloride 101 mmol/L (98-107); Creatinine, Serum 4.08 mg/dL (0.55-1.02); EST Glomerular Filtration Rate 12 mL/min (>60); Est Glom Filt Rate - Afr Amer 14 mL/min (>60); Estimated Creatinine Clearance 12.03 ml/min; Glucose 147 mg/dL (74-106); Potassium 4.3 mmol/L (3.5-5.1); Sodium Level 136 mmol/L (136-145)
[2022-11-15] MEDS: Ipratropium/Albuterol Sulfate 3 ML AMPUL.NEB INHALATION ×2 (07:00→19:09)
--- NOTE | 2022-11-15 07:50 | PCM.PN.HOSP ---
Reason for Visit Reason for Visit: Diagnoses Chronic obstructive pulmonary disease with (acute) exacerbation (11/14/22) Hypoxemia (11/14/22) Subjective Subjective Patient is a 62-year-old female admitted with progressive shortness of breath and assessment of COPD with acute exacerbation made admitted to regular nursing floor for further management Objective Data Objective Data Vital Signs: Vital Signs Temp Pulse Resp BP Pulse Ox O2 Del Method O2 Flow Rate 97.9 F 75 18 165/65 H 94 Nasal Cannula 1 11/15/22 02:35 11/15/22 07:00 11/15/22 07:00 11/15/22 07:26 11/15/22 07:00 11/15/22 07:00 11/15/22 07:00 Oxygen Flow Rate (L/min) 1 Oxygen Delivery Method Nasal Cannula Weight: 78.953 kg Body Mass Index (BMI) 29.8 Lab / Micro Data Result Diagrams: 11/15/22 05:08 11/15/22 05:08 Labs: Laboratory Results - last 24 hr 11/15/22 05:08: WBC 9.3, RBC 3.22 L, Hgb 10.7 L, Hct 32.0 L, MCV 99.4 H, MCH 33.2 H, MCHC 33.4, RDW Std Deviation 48.4 H, RDW Coeff of Lola 13.2, Plt Count 200, MPV 9.9, Immature Gran % (Auto) 0.900, Neut % (Auto) 86.1 H, Lymph % (Auto) 9.6 L, [place] % (Auto) 3.3, Eos % (Auto) 0.0, Baso % (Auto) 0.1, Absolute Neuts (auto) 8.0 H, Absolute Lymphs (auto) 0.89, Nucleated RBC % 0 11/15/22 05:08: Sodium 136, Potassium 4.3, Chloride 101, Carbon Dioxide 27.0, Anion Gap 8, BUN 34 H, Creatinine 4.08 H, Estim Creat Clear Calc 12.03, Est GFR (MDRD) Af Amer 14 L, Est GFR (MDRD) Non-Af 12 L, BUN/Creatinine Ratio 8.3 L, Glucose 147 H, Calcium 9.3 Physical Exam Narrative GENERAL: cooperative HEENT: Atraumatic; normocephalic EYES; Anicteric, Normal Conjunctiva NECK; supple, normal thyroid, RESPIRATORY: Diminished to auscultation CARDIOVASCULAR: Regular S1 S2, GI: soft, normoactive bowel sounds, : No Renal angle tenderness; EXTREMITIES: No edema, no clubbing, MUSCULOSKELETAL: no muscle wasting NEURO: Awake; no lateralizing signs. SKIN: No Rash PSYCH; Flat affect Assessment & Plan Assessment/Plan (1) Hypoxia: (2) COPD exacerbation: PLAN: Plan Patient is a 62-year-old female admitted with progressive shortness of breath and assessment of COPD with acute exacerbation made admitted to regular nursing floor for further management 1. COPD with acute exacerbation - Patient started on bronchodilator treatment, systemic steroid as well as antibiotic therapy. Patient placed on oxygen titrated to keep saturation greater than 90. 2. Coronary artery disease ? With previous PCI did continue recommended medications including aspirin, Plavix, atorvastatin beta-blockers 3. Dyslipidemia -Patient is on statin therapy, continued at home dose 4. Hypertension - Blood pressure controlled, home medications continued with dose adjustment as needed 5. End-stage renal disease ? On dialysis nephrology consulted for dialysis orders 6. GERD ? On PPI 7.DVT prophylaxis ? SC heparin Time spent in the patient's overall evaluation,decision-making process, review of diagnostic data, adjustment of management, discussion with other providers, nursing nursing and ancillary staff involved in patient's care documentation, 57 Minutes Charges/Coding Visit Charges Inpatient E&M: 62009 [facility] L3
--- NOTE | 2022-11-15 07:54 | WOUNDNOTE ---
wound photo: right upper inner arm
[2022-11-15] MEDS: SEVELAMER CARBONATE 800 MG TABLET PO ×3 (09:06→18:04)
--- NOTE | 2022-11-15 10:05 | CASEMGMT ---
JOHAN HAYES Face to Face with patient for initial transition planning/care coordination assessment. RN FREDDY introduced self and role at [facility]. Patient lying in bed, alert and oriented. Patient willing to participate in assessment and is able to answer all questions appropriately. Care providers, pharmacy, and demographics verified. Patient wishes to discharge home, denies need for home health at this time. JOHAN HAYES discussed Patient Link program with patient and is interested, referral made to Patient Link. Patient states she has no further needs or concerns at this time. CM to follow for discharge planning needs that may arise. PCP: [facility] Specialists: El[facility] vascular [facility]; Raymundo [facility] Preferred Pharmacy: [facility] Insurance: [employer] Prescription Benefit: yes Living Will/HPOA: none LNOK: aunt Living Arrangements: Patient lives alone in a first floor apartment with 3 steps to enter. Patient states she is independent at home. Transportation: Self, [place], [employer] DME/HHC: Patient has cane and walker at home. Will monitor for home oxygen. No previous HHC or SNF. Patient attends HD at [facility]. Patient has previously been to [facility], no previous HHC. Disposition Plan: Patient to discharge home with patient link, family support, and follow-up plans in place. Swathi JENSEN, RN, CM
[2022-11-15] MEDS: NIFEdipine 60 MG Tablet PO ×2 (10:21→20:49)
--- NOTE | 2022-11-15 10:40 | CON.PCM.RE_ITS ---
Assessment & Plan Assessment/Plan (1) ESRD (end stage renal disease): (2) COPD exacerbation: (3) Anemia of chronic disease: (4) HTN (hypertension): PLAN: Plan This is a 62-year-old female with past medical history significant for ESRD on hemodialysis Sunday who last dialyzed yesterday at the kidney center before coming off dialysis early due to complaints of shortness of breath and difficulty breathing. Patient dialyzed almost 2 hours yesterday. Reviewed chest x-ray, no infiltrates or pulmonary edema. Patient's potassium and bicarb as well as volume status is acceptable therefore no acute indication for [employer] today; patient appears near euvolemic today. We will plan for dialysis tomorrow. Patient is receiving treatment for COPD including IV steroids and DuoNeb treatments. Patient reports breathing is better, oxygenation has improved and she is on nasal cannula at 1 L. Blood pressures acceptable on current antihypertensives. Patient has a history of anemia of chronic disease, current hemoglobin trends are acceptable. Patient does have right upper arm AV fistula which was recently created. She has since followed up with vascular and had noted incisional drainage therefore just recently finished 1 week course of oral antibiotics. Patient continues to follow with vascular for AV fistula and is scheduled for further surgery first week of November. At this time we are using tunneled dialysis catheter for hemodialysis. Further orders forthcoming as hospitalization evolves. Thank you allowing us participate in the care of Ms. Laughlin. HPI Consult Data Date of Consult: 11/15/22 HPI Narrative HPI Narrative: BARI LAUGHLIN, is a 62 F with past medical history significant for hypertension, ESRD on hemodialysis Sunday schedule, history of diverticulitis and recurrent colitis with status post multiple bowel surgeries, history of pelvic abscess status post drain, history of tobacco abuse, history of anxiety who presented to the emergency room with complaints of shortness of breath during dialysis. Patient was admitted for exacerbation of asthma and/or COPD; chest x-ray was negative for any acute pathology. We were consulted as patient has a history of ESRD and for dialysis management. Patient did go to her dialysis center yesterday and underwent about 2 hours of hemodialysis but came off treatment early due to difficulty breathing. Patient reports her breathing is better today. She reports good appetite. Denies any recent fever or chills. Denies any nausea, vomiting or diarrhea. [facility] Medical History (Updated 11/15/22 @ 10:48 by BRIT Sexton) Anxiety Asthma Congestive heart failure (CHF) Coronary artery disease Depression Diabetes Dialysis patient History of high cholesterol Kidney disease Migraines Myocardial infarct PTSD (post-traumatic stress disorder) Sleep apnea Substance abuse Home Medications albuterol sulfate 90 mcg/actuation aerosol inhaler (Ventolin HFA) 2 puff inhalation Q4H PRN PRN Wheezing 05/14/18 [History Last Taken 11/14/22] acetaminophen 500 mg tablet 500 mg PO Q6H PRN PRN Pain 04/18/19 [History Last Taken Unknown] nifedipine 60 mg tablet,extended release 60 mg PO BID Check with primary doctor 07/15/21 [History Last Taken 11/14/22] cholecalciferol (vitamin D3) 25 mcg (1,000 unit) capsule 25 mcg PO DAILY supplement 10/02/21 [History Last Taken 11/14/22] albuterol sulfate 90 mcg/actuation aerosol inhaler (Ventolin HFA) 1 - 2 puff inhalation Q4H PRN PRN Wheezing #1 ea 11/14/22 [Rx Last Taken Unknown] aspirin 81 mg tablet,delayed release 81 mg PO DAILY heart 11/14/22 [History Last Taken 11/14/22] atorvastatin 80 mg tablet 80 mg PO DINNER cholesterol 11/14/22 [History Last Taken 11/13/22] carvedilol 25 mg tablet 25 mg PO BID heart 11/14/22 [History Last Taken 11/14/22] clonidine 0.1 mg/24 hr weekly transdermal patch 1 patch transdermal QWEEK bp? 11/14/22 [History Last Taken 11/10/22] clopidogrel 75 mg tablet 75 mg PO DAILY heart 11/14/22 [History Last Taken 11/14/22] furosemide 80 mg tablet (Lasix) See Rx Instructions .Route .COMPLEX water pill 11/14/22 [History Last Taken 11/14/22] mirtazapine 7.5 mg tablet 7.5 mg PO QHS sleep 11/14/22 [History Last Taken 11/13/22] nitroglycerin 0.4 mg sublingual tablet 0.4 mg sublingual DAILY PRN Heartburn 11/14/22 [History Last Taken Unknown] pantoprazole 40 mg tablet,delayed release 40 mg PO DAILY Check with primary doctor 11/14/22 [History Last Taken 11/14/22] prednisone 20 mg tablet 50 mg PO DAILY steroid 11/14/22 [History Last Taken 11/14/22] sevelamer carbonate 800 mg tablet 800 mg PO TIDCM Check with primary doctor 11/14/22 [History Last Taken 11/14/22] vitamin B complex-vitamin C-folic acid 0.8 mg tablet (Mojgan-Kirk) 1 tab PO DAILY supplement 11/14/22 [History Last Taken 11/14/22] Allergy/AdvReac Type Severity Reaction Status Date / Time Latex, Natural Rubber Allergy Rash Verified 11/14/22 14:44 Penicillins Allergy Rash Verified 11/14/22 14:44 Family History (Updated 11/14/22 @ 16:[address] Valentin Sanders MD) Other CAD (coronary artery disease) Heart disease Surgical History (Updated 11/14/22 @ 16:07 by Bindu Mejias) H/O tubal ligation History of section, classical History of coronary artery stent placement Social History Smoking Status: Current every day smoker tobacco type: cigarettes ROS ROS Narrative As per HPI Physical Exam Narrative Alert and oriented x3, no apparent distress S1, S2, RRR Lung sounds clear anteriorly, diminished breath sounds posterior bases with faint expiratory wheezing. No rhonchi or rales noted Abdomen soft, nontender, positive bowel sounds x4 quadrants No pitting edema noted bilateral lower legs, feet or arms Right upper arm AV fistula with positive thrill and bruit noted. Dry scab noted to incision. No redness or drainage noted. Tunneled dialysis catheter dressing clean, dry and intact Lab / Micro Data Result Diagrams: 11/15/22 05:08 11/15/22 05:08 Labs: Laboratory Results - last 24 hr 11/15/22 05:08: WBC 9.3, RBC 3.22 L, Hgb 10.7 L, Hct 32.0 L, MCV 99.4 H, MCH 33.2 H, MCHC 33.4, RDW Std Deviation 48.4 H, RDW Coeff of Lola 13.2, Plt Count 200, MPV 9.9, Immature Gran % (Auto) 0.900, Neut % (Auto) 86.1 H, Lymph % (Auto) 9.6 L, [place] % (Auto) 3.3, Eos % (Auto) 0.0, Baso % (Auto) 0.1, Absolute Neuts (auto) 8.0 H, Absolute Lymphs (auto) 0.89, Nucleated RBC % 0 11/15/22 05:08: Sodium 136, Potassium 4.3, Chloride 101, Carbon Dioxide 27.0, Anion Gap 8, BUN 34 H, Creatinine 4.08 H, Estim Creat Clear Calc 12.03, Est GFR (MDRD) Af Amer 14 L, Est GFR (MDRD) Non-Af 12 L, BUN/Creatinine Ratio 8.3 L, Glucose 147 H, Calcium 9.3
--- NOTE | 2022-11-15 14:58 | CASEMGMT ---
Provided pt with a local healthcare provider directory. Pt denies further needs.
[2022-11-15] MEDS: cloNIDine HCl 0.1 MG Patch TD (18:47)
[2022-11-15] MEDS: hydrALAZINE 20 MG/ML Vial IV (19:52)
[2022-11-15] MEDS: Acetaminophen 325 MG Tablet 650 MG PO (20:48)
[2022-11-15] MEDS: Atorvastatin Calcium 80 MG Tablet PO (20:49)
[2022-11-16] VITALS (8 sets, daily range): BP systolic 148–176; BP diastolic 56–69; PULSE 67–80; RESP 16–18; TEMP 36.1–37.4; O2SAT 93–97
[2022-11-16] MEDS: 0.9% Saline Lock 10 ML Syringe IV ×2 (02:41→04:32)
[2022-11-16] MEDS: hydrALAZINE 20 MG/ML Vial 10 MG IV (02:41)
--- NOTE | 2022-11-16 04:44 | NURSING ---
pt asked rn to call [facility] [phone] and leave message that she doesn't need picked up this am for dialysis. msg left and pt aware
[2022-11-16] MEDS: Ipratropium/Albuterol Sulfate 3 ML AMPUL.NEB INHALATION ×2 (07:02→10:07)
[2022-11-16 07:12] LABS: Absolute Lymphocyte Count 0.95 X10^3/uL (0.83-4.51); Absolute Neutrophil Count 12.5 X10^3/uL (2.0-7.7); Basophil# 0.02 X10^3/uL; Basophil% 0.1 % (0-1); Hematocrit 33.2 % (37-47); Hemoglobin 10.8 g/dL (12.0-15.0); Lymphocyte # 0.95 X10^3/ul (0.83-4.51); Lymphocyte % 6.6 % (19-41); Mean Corp Hgb Conc 32.5 g/dL (32-36); Mean Corpuscular Hgb 32.8 pg (27.0-32.0); Mean Corpuscular Volume 100.9 fL (81-99); Mean Platelet Vol. 9.9 fl (6.2-12.0); Monocyte# 0.65 X10^3/uL; Monocyte% 4.5 % (0-10); NRBC Flagged by Analyzer 0 % (0-5); Neutrophil # 12.54 X10^3/uL (2.7-7.7); Neutrophil % 87.5 % (47-70); Platelet Count 227 K/mm3 (150-450); RBC Distribution Width CV 13.4 % (11.6-14.6); RBC Distribution Width SD 49.9 fl (35.1-43.9); Red Blood Count 3.29 M/mm3 (4.2-5.4); White Blood Count 14.4 K/mm3 (4.4-11.0)
[2022-11-16 07:44] LABS: Anion Gap 12 (5-15); BUN 54 mg/dL (7-18); BUN/Creat Ratio 12.1 RATIO (10-20); Calcium,Total 9.3 mg/dL (8.5-10.1); Chloride 99 mmol/L (98-107); Creatinine, Serum 4.46 mg/dL (0.55-1.02); EST Glomerular Filtration Rate 11 mL/min (>60); Est Glom Filt Rate - Afr Amer 13 mL/min (>60); Glucose 151 mg/dL (74-106); Magnesium 2.2 mg/dL (1.6-2.6); Phosphorus 5.8 mg/dL (2.5-4.9); Potassium 4.4 mmol/L (3.5-5.1); Sodium Level 135 mmol/L (136-145)
--- NOTE | 2022-11-16 07:56 | PN.HOSP_ITS ---
Reason for Visit Reason for Visit: Diagnoses Chronic obstructive pulmonary disease with (acute) exacerbation (11/14/22) Hypoxemia (11/14/22) Subjective Subjective Patient seen admit to some improvement in her overall breathing. Plan is for patient to be assessed for home oxygen needs Objective Data Objective Data Vital Signs: Vital Signs Temp Pulse Resp BP Pulse Ox O2 Del Method O2 Flow Rate 97 F L 80 18 168/67 H 94 Nasal Cannula 1 11/16/22 02:40 11/16/22 07:03 11/16/22 07:03 11/16/22 02:40 11/16/22 07:03 11/16/22 07:03 11/16/22 07:03 Oxygen Flow Rate (L/min) 1 Oxygen Delivery Method Nasal Cannula Weight: 78.953 kg Body Mass Index (BMI) 29.8 Intake & Output: Intake and Output for Last 24 Hours 11/14/22 11/15/22 11/16/22 23:59 23:59 23:59 Intake Total 480 / 480 Balance 480 / 480 Medical Nutrition Assessment Dietitian: Malnutrition Criteria Met Start: 11/15/22 11:41 Freq: Status: Active Protocol: Document 11/15/22 11:41 AG (Rec: 11/15/22 11:41 AG [id number]) Nutrition Malnutrition Evidence of Malnutrition Exists Yes Malnutrition (severe): Chronic Evidenced By Suboptimal Energy Intake ( Severe),Weight Loss (Severe) Clinical Problem Chronic Disease or Condition Related Malnutrition Etiology severe, chronic malnutrition related to inadequate energy intake w/ increased energy needs d/t dialysis Signs/Symptoms as evidenced by reported unintentional ~40#/19% wt loss x 3 months; estimated PO intake meeting <75% of estimated energy needs > 3 months Status Active Problem Recommendation Dietitian Recommendations/Changes continue cardiac diet as tolerated; will add 240mL Nepro w/ breakfast for additional calories/protein if consumed. Will consider liberalizing diet if PO intake remains poor. Lab / Micro Data Result Diagrams: 11/16/22 06:33 11/16/22 06:33 Labs: Laboratory Results - last 24 hr 11/16/22 06:33: WBC 14.4 H, RBC 3.29 L, Hgb 10.8 L, Hct 33.2 L, MCV 100.9 H, MCH 32.8 H, MCHC 32.5, RDW Std Deviation 49.9 H, RDW Coeff of Lola 13.4, Plt Count 227, MPV 9.9, Immature Gran % (Auto) 1.300 H, Neut % (Auto) 87.5 H, Lymph % (Auto) 6.6 L, [place] % (Auto) 4.5, Eos % (Auto) 0.0, Baso % (Auto) 0.1, Absolute Neuts (auto) 12.5 H, Absolute Lymphs (auto) 0.95, Nucleated RBC % 0 11/16/22 06:33: Sodium 135 L, Potassium 4.4, Chloride 99, Carbon Dioxide 24.0, Anion Gap 12, BUN 54 H, Creatinine 4.46 H, Estim Creat Clear Calc 11.00, Est GFR (MDRD) Af Amer 13 L, Est GFR (MDRD) Non-Af 11 L, BUN/Creatinine Ratio 12.1, Glucose 151 H, Calcium 9.3, Phosphorus 5.8 H, Magnesium 2.2 Physical Exam Narrative GENERAL: cooperative HEENT: Atraumatic; normocephalic EYES; Anicteric, Normal Conjunctiva NECK; supple, normal thyroid, RESPIRATORY: Diminished to auscultation CARDIOVASCULAR: Regular S1 S2, GI: soft, normoactive bowel sounds, : No Renal angle tenderness; EXTREMITIES: No edema, no clubbing, MUSCULOSKELETAL: no muscle wasting NEURO: Awake; no lateralizing signs. SKIN: No Rash PSYCH; Flat affect Assessment & Plan Assessment/Plan (1) Hypoxia: (2) COPD exacerbation: PLAN: Plan Patient is a 62-year-old female admitted with progressive shortness of breath and assessment of COPD with acute exacerbation made admitted to regular nursing floor for further management 1. COPD with acute exacerbation - Patient started on bronchodilator treatment, systemic steroid as well as antibiotic therapy. Patient placed on oxygen titrated to keep saturation greater than 90. 2. Coronary artery disease ? With previous PCI did continue recommended medications including aspirin, Plavix, atorvastatin beta-blockers 3. Dyslipidemia -Patient is on statin therapy, continued at home dose 4. Hypertension - Blood pressure controlled, home medications continued with dose adjustment as needed 5. End-stage renal disease ? On dialysis nephrology consulted for dialysis orders 6. GERD ? On PPI 7.DVT prophylaxis ? SC heparin Time spent in the patient's overall evaluation,decision-making process, review of diagnostic data, adjustment of management, discussion with other providers, nursing nursing and ancillary staff involved in patient's care documentation, 37 Minutes Charges/Coding Visit Charges Inpatient E&M: 30875 [facility] L2
[2022-11-16] MEDS: Mirtazapine 15 MG Tablet 7.5 MG PO (08:30)
[2022-11-16] MEDS: Furosemide 80 MG Tablet PO (08:30)
[2022-11-16] MEDS: Aspirin E.C. 81 MG Tablet PO (08:31)
[2022-11-16] MEDS: SEVELAMER CARBONATE 800 MG TABLET PO ×3 (08:31→17:39)
[2022-11-16] MEDS: Pantoprazole Sodium 40 MG Tablet PO (08:31)
[2022-11-16] MEDS: NIFEdipine 60 MG Tablet PO (08:31)
[2022-11-16] MEDS: Carvedilol 25 MG Tablet PO ×2 (08:31→17:43)
[2022-11-16] MEDS: Clopidogrel Bisulfate 75 MG Tablet PO (08:32)
--- NOTE | 2022-11-16 10:08 | CASEMGMT ---
TC to [facility], the latest dialysis time today is arrival at 11am. Plan for pt to receive dialysis today and then dc. Pt does not qualify for home oxygen.
--- NOTE | 2022-11-16 10:11 | PCM.PN.REN ---
Subjective Subjective Sitting up on side of bed. Denies any complaints. Denies any shortness of breath. No overnight events. Objective Data Objective Data Vital Signs: Vital Signs Temp Pulse Resp BP Pulse Ox O2 Del Method O2 Flow Rate 99.4 F H 77 18 169/69 H 94 Nasal Cannula 1 11/16/22 08:52 11/16/22 10:08 11/16/22 10:08 11/16/22 08:52 11/16/22 08:56 11/16/22 08:52 11/16/22 08:52 Oxygen Flow Rate (L/min) 1 Oxygen Delivery Method Nasal Cannula Weight: 78.953 kg Body Mass Index (BMI) 29.8 Intake & Output: Intake and Output for Last 24 Hours 11/14/22 11/15/22 11/16/22 23:59 23:59 23:59 Intake Total 480 / 480 Balance 480 / 480 Medical Nutrition Assessment Dietitian: Malnutrition Criteria Met Start: 11/15/22 11:41 Freq: Status: Active Protocol: Document 11/15/22 11:41 AG (Rec: 11/15/22 11:41 AG [id number]) Nutrition Malnutrition Evidence of Malnutrition Exists Yes Malnutrition (severe): Chronic Evidenced By Suboptimal Energy Intake ( Severe),Weight Loss (Severe) Clinical Problem Chronic Disease or Condition Related Malnutrition Etiology severe, chronic malnutrition related to inadequate energy intake w/ increased energy needs d/t dialysis Signs/Symptoms as evidenced by reported unintentional ~40#/19% wt loss x 3 months; estimated PO intake meeting <75% of estimated energy needs > 3 months Status Active Problem Recommendation Dietitian Recommendations/Changes continue cardiac diet as tolerated; will add 240mL Nepro w/ breakfast for additional calories/protein if consumed. Will consider liberalizing diet if PO intake remains poor. Lab / Micro Data Result Diagrams: 11/16/22 06:33 11/16/22 06:33 Labs: Laboratory Results - last 24 hr 11/16/22 06:33: WBC 14.4 H, RBC 3.29 L, Hgb 10.8 L, Hct 33.2 L, MCV 100.9 H, MCH 32.8 H, MCHC 32.5, RDW Std Deviation 49.9 H, RDW Coeff of Lola 13.4, Plt Count 227, MPV 9.9, Immature Gran % (Auto) 1.300 H, Neut % (Auto) 87.5 H, Lymph % (Auto) 6.6 L, [place] % (Auto) 4.5, Eos % (Auto) 0.0, Baso % (Auto) 0.1, Absolute Neuts (auto) 12.5 H, Absolute Lymphs (auto) 0.95, Nucleated RBC % 0 11/16/ 06:33: Sodium 135 L, Potassium 4.4, Chloride 99, Carbon Dioxide 24.0, Anion Gap 12, BUN 54 H, Creatinine 4.46 H, Estim Creat Clear Calc 11.00, Est GFR (MDRD) Af Amer 13 L, Est GFR (MDRD) Non-Af 11 L, BUN/Creatinine Ratio 12.1, Glucose 151 H, Calcium 9.3, Phosphorus 5.8 H, Magnesium 2.2 Physical Exam Narrative Alert and oriented x3, no apparent distress S1, S2, RRR Lung sounds clear anteriorly, faint expiratory wheezing. No rhonchi or rales noted Abdomen soft, nontender, positive bowel sounds x4 quadrants No pitting edema noted bilateral lower legs, feet or arms Right upper arm AV fistula with positive thrill and bruit noted. Dry scab noted to incision. No redness or drainage noted. Dressing dry and intact over part of the incision. Tunneled dialysis catheter dressing clean, dry and intact Assessment & Plan Assessment/Plan (1) ESRD (end stage renal disease): (2) COPD exacerbation: (3) Anemia of chronic disease: (4) HTN (hypertension): PLAN: Plan - ESRD on hemodialysis Sunday; patient to dialyze today over 3.5 hours with around 1-2 L fluid removal. Patient typically does not have large fluid gains between treatment and able to get to EDW - COPD, improving on IV steroids and DuoNeb treatments. Patient reports breathing is better, oxygenation has improved and she is on nasal cannula at 1L - Blood pressures acceptable on carvedilol, furosemide, nifedipine, clonidine - history of anemia of chronic disease, current hemoglobin trends are acceptable; hemoglobin 10.8 - Patient continues to follow with vascular for post AV fistula surgery and is scheduled for further surgery first week of November. At this time we are using tunneled dialysis catheter for hemodialysis. -Discharge planning in progress
[2022-11-16] MEDS: Lactulose 20 GM/30 ML UDC PO (11:04)
--- NOTE | 2022-11-16 11:31 | DS.PCM_ITS ---
Providers Date of Admission: 11/14/22 Date of Discharge: 11/16/22 Primary Care Physician: Dr. 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 Comment: Reason for Consult:: Right arm scab from fistula Reason For Visit: COPD EXACERBATION, HYPOXIA Diagnosis Discharge Diagnosis (1) ESRD (end stage renal disease): Status: Acute Code(s): N18.6 - End stage renal disease (2) COPD exacerbation: Status: Chronic Code(s): J44.1 - Chronic obstructive pulmonary disease with (acute) exacerbation (3) Anemia of chronic disease: Status: Chronic Code(s): D63.8 - Anemia in other chronic diseases classified elsewhere (4) HTN (hypertension): Status: Chronic Code(s): I10 - Essential (primary) hypertension Plan Patient is a 62-year-old female admitted with progressive shortness of breath and assessment of COPD with acute exacerbation made admitted to regular nursing floor for further management 1. COPD with acute exacerbation - Patient started on bronchodilator treatment, systemic steroid as well as antibiotic therapy. Patient placed on oxygen titrated to keep saturation greater than 90. 2. Coronary artery disease ? With previous PCI did continue recommended medications including aspirin, Plavix, atorvastatin beta-blockers 3. Dyslipidemia -Patient is on statin therapy, continued at home dose 4. Hypertension - Blood pressure controlled, home medications continued with dose adjustment as needed 5. End-stage renal disease ? On dialysis nephrology consulted for dialysis orders 6. GERD ? On PPI 7.DVT prophylaxis ? SC heparin Time spent in the patient's overall evaluation,decision-making process, review of diagnostic data, adjustment of management, discussion with other providers, nursing nursing and ancillary staff involved in patient's care documentation, 37 Minutes Medications at Discharge Home Medications albuterol sulfate 90 mcg/actuation aerosol inhaler (Ventolin HFA) 2 puff inhalation Q4H PRN PRN Wheezing 05/14/18 acetaminophen 500 mg tablet 500 mg PO Q6H PRN PRN Pain 04/18/19 nifedipine 60 mg tablet,extended release 60 mg PO BID Check with primary doctor 11/19/21 cholecalciferol (vitamin D3) 25 mcg (1,000 unit) capsule 25 mcg PO DAILY supplement 10/02/21 albuterol sulfate 90 mcg/actuation aerosol inhaler (Ventolin HFA) 1 - 2 puff inhalation Q4H PRN PRN Wheezing #1 ea 11/14/22 aspirin 81 mg tablet,delayed release 81 mg PO DAILY heart 11/14/22 atorvastatin 80 mg tablet 80 mg PO DINNER cholesterol 11/14/22 carvedilol 25 mg tablet 25 mg PO BID heart 11/14/22 clonidine 0.1 mg/24 hr weekly transdermal patch 1 patch transdermal QWEEK bp? 11/14/22 clopidogrel 75 mg tablet 75 mg PO DAILY heart 11/14/22 furosemide 80 mg tablet (Lasix) See Rx Instructions .Route .COMPLEX water pill 11/14/22 mirtazapine 7.5 mg tablet 7.5 mg PO QHS sleep 11/14/22 nitroglycerin 0.4 mg sublingual tablet 0.4 mg sublingual DAILY PRN Heartburn 11/14/22 pantoprazole 40 mg tablet,delayed release 40 mg PO DAILY Check with primary doct or 11/14/22 prednisone 20 mg tablet 50 mg PO DAILY steroid 11/14/22 sevelamer carbonate 800 mg tablet 800 mg PO TIDCM Check with primary doctor 11/14/22 vitamin B complex-vitamin C-folic acid 0.8 mg tablet (Mojgan-Kirk) 1 tab PO DAILY supplement 11/14/22 azithromycin 500 mg tablet 500 mg PO DAILY 5 days #5 tabs 11/16/22 guaifenesin 600 mg tablet, extended release 12 hr (Mucus Relief ER) 1,200 mg PO Q12H cough #20 tabs 11/16/22 prednisone 20 mg tablet 40 mg PO DAILY #10 tabs 11/16/22 Hospital Course Summary of Care Provided Minutes Spent on Discharge: 37 Physical Exam Narrative GENERAL: cooperative HEENT: Atraumatic; normocephalic EYES; Anicteric, Normal Conjunctiva NECK; supple, normal thyroid, RESPIRATORY: Diminished to auscultation CARDIOVASCULAR: Regular S1 S2, GI: soft, normoactive bowel sounds, : No Renal angle tenderness; EXTREMITIES: No edema, no clubbing, MUSCULOSKELETAL: no muscle wasting NEURO: Awake; no lateralizing signs. SKIN: No Rash PSYCH; Flat affect Medical Records Data Medical Nutrition Assessment Dietitian: Malnutrition Criteria Met Start: 11/15/22 11:41 Freq: Status: Active Protocol: Document 11/15/22 11:41 (Rec: 11/15/22 11:41 AG [id number]) Nutrition Malnutrition Evidence of Malnutrition Exists Yes Malnutrition (severe): Chronic Evidenced By Suboptimal Energy Intake ( Severe),Weight Loss (Severe) Clinical Problem Chronic Disease or Condition Related Malnutrition Etiology severe, chronic malnutrition related to inadequate energy intake w/ increased energy needs d/t dialysis Signs/Symptoms as evidenced by reported unintentional ~40#/19% wt loss x 3 months; estimated PO intake meeting <75% of estimated energy needs > 3 months Status Active Problem Recommendation Dietitian Recommendations/Changes continue cardiac diet as tolerated; will add 240mL Nepro w/ breakfast for additional calories/protein if consumed. Will consider liberalizing diet if PO intake remains poor. Weight / BMI Weight Weight: 78.953 kg Body Mass Index (BMI) 29.8 ABG / Lab / Microbiology Data Result Diagrams: 11/16/22 06:33 11/16/22 06:33 Laboratory: Laboratory Results - last 24 hr 11/16/22 06:33: WBC 14.4 H, RBC 3.29 L, Hgb 10.8 L, Hct 33.2 L, MCV 100.9 H, MCH 32.8 H, MCHC 32.5, RDW Std Deviation 49.9 H, RDW Coeff of Lola 13.4, Plt Count 227, MPV 9.9, Immature Gran % (Auto) 1.300 H, Neut % (Auto) 87.5 H, Lymph % (Auto) 6.6 L, Toombs % (Auto) 4.5, Eos % (Auto) 0.0, Baso % (Auto) 0.1, Absolute Neuts (auto) 12.5 H, Absolute Lymphs (auto) 0.95, Nucleated RBC % 0 11/16/22 06:33: Sodium 135 L, Potassium 4.4, Chloride 99, Carbon Dioxide 24.0, Anion Gap 12, BUN 54 H, Creatinine 4.46 H, Estim Creat Clear Calc 11.00, Est GFR (MDRD) Af Amer 13 L, Est GFR (MDRD) Non-Af 11 L, BUN/Creatinine Ratio 12.1, Glucose 151 H, Calcium 9.3, Phosphorus 5.8 H, Magnesium 2.2 D/C Instructions Discharge Diet: Renal Diet Discharge Activity: Return to Normal Activity Call your doctor if you observe: Fever of 101 or Higher, Shortness of breath, Fainting spells and Chest pain Meaningful Use Info Meaningful Use Diagnoses (Choose all that apply): None applicable Discharge Plan Admission Admit Date/Time: 11/14/22 15:11 Attending Provider: Thomas Muir Primary Care Provider: Elvin Becerra Consulting Providers: Adrian Vazquez ; Valentin Sanders Discharge Orders/Prescriptions Prescriptions: New prednisone 20 mg tablet 40 mg PO DAILY Qty: 10 0RF azithromycin 500 mg tablet 500 mg PO DAILY 5 Days Qty: 5 0RF guaifenesin [Mucus Relief ER] 600 mg tablet extended release 12hr 1,200 mg PO Q12H Qty: 20 0RF Continued albuterol sulfate [Ventolin HFA] 1 INHALER inhaler 2 puff inhalation Q4H PRN PRN (Reason: Wheezing) acetaminophen 500 MG tablet 500 mg PO Q6H PRN PRN (Reason: Pain) nifedipine 60 mg Tablet Extended Release 60 mg PO BID cholecalciferol (vitamin D3) 25 mcg (1,000 unit) capsule 25 mcg PO DAILY Label Comments: Take 1 capsule by mouth once daily. albuterol sulfate [Ventolin HFA] 90 mcg/actuation HFA aerosol inhaler 1 - 2 puff inhalation Q4H PRN PRN (Reason: Wheezing) Qty: 1 0RF atorvastatin 80 mg tablet 80 mg PO DINNER Label Comments: Take 1 tablet by mouth daily at bedtime. carvedilol 25 mg tablet 25 mg PO BID Label Comments: TAKE 1 TABLET BY MOUTH TWICE DAILY clonidine 0.1 mg/24 hr patch weekly 1 patch transdermal QWEEK Label Comments: APPLY 1 PATCH EVERY WEEK Rx Instructions: Every fri clopidogrel 75 mg tablet 75 mg PO DAILY Label Comments: Take 1 tablet by mouth once daily. aspirin 81 mg tablet,delayed release (DR/EC) 81 mg PO DAILY furosemide [Lasix] 80 mg Tablet See Rx Instructions .ROUTE .COMPLEX Rx Instructions: 1 tab once daily on tu, thurs, sat 1 tabe twice daily on mon, wed, fri, and sun pantoprazole 40 mg tablet,delayed release (DR/EC) 40 mg PO DAILY Label Comments: TAKE 1 TABLET BY MOUTH EVERY DAY at 6am Mojgan-Kirk 0.8 mg tablet 1 tab PO DAILY Label Comments: TAKE 1 TABLET BY MOUTH EVERY DAY mirtazapine 7.5 mg tablet 7.5 mg PO QHS Label Comments: Take 1 tablet by mouth daily at bedtime. sevelamer carbonate 800 mg tablet 800 mg PO TIDCM Label Comments: TAKE 1 TABLET BY MOUTH THREE TIMES A DAY WITH MEALS prednisone 20 mg tablet 50 mg PO DAILY nitroglycerin 0.4 mg tablet, sublingual 0.4 mg sublingual DAILY PRN (Reason: Heartburn) Label Comments: Dissolve 1 tablet under the tongue as needed for chest pain. Referrals / Follow Up: Elvin Becerra MD [Primary Care Provider] - In 1 Week Disposition Disposition (needs filled in before D/C Order can be placed): Home, Self Care Charges/Coding Visit Charges Inpatient E&M: 51430 Disch Hosp >30min
--- NOTE | 2022-11-16 16:16 | DIALYSIS ---
Hemodialysis tx completed x 3 hours without complications. Pt tolerated tx fair, hypertensive throughout tx. Fluid removed 600ml. Verbal report to JOHAN Domniguez post tx
[2022-11-16] MEDS: Atorvastatin Calcium 80 MG Tablet PO (17:43)
== END 2022-11-16 18:33 | disposition home or self-care (01) | DRG 190 ==
LOC: ED 15:13 → MS3 16:22
PROVIDERS: Admitting Provider Family Medicine; Emergency Provider Emergency Medicine; PCP Family Medicine; Visit Provider Internal Medicine
DX: J44.1 Chronic obstructive pulmonary disease with (acute) exacerbation (principal); N18.6 End stage renal disease; I12.0 Hypertensive chronic kidney disease with stage 5 chronic kidney disease or end stage renal disease; D63.8 Anemia in other chronic diseases classified elsewhere; E11.22 Type 2 diabetes mellitus with diabetic chronic kidney disease; Z99.2 Dependence on renal dialysis; F17.210 Nicotine dependence, cigarettes, uncomplicated; K21.9 Gastro-esophageal reflux disease without esophagitis; I25.10 Atherosclerotic heart disease of native coronary artery without angina pectoris; E78.5 Hyperlipidemia, unspecified; Z79.82 Long term (current) use of aspirin; Z79.02 Long term (current) use of antithrombotics/antiplatelets; Z95.5 Presence of coronary angioplasty implant and graft
CPT/HCPCS: 36415; 71045; 80048; 83735; 84100; 85025; 90937; 93005; 94640; 96374; 97802; 99285; 99406; J7030; A4216; G0257

== ENCOUNTER 2022-12-20 12:30 | Outpatient (CLI) | payer MEDICARE, MEDICAID, SELFPAY ==
[2022-12-20 12:59] VITALS: BP 144/52; PULSE 58; RESP 20; TEMP 36.3; O2SAT 92; BMI 30.8
[2022-12-20] MEDS: 0.9% NaCl Peripheral Flush Adult/Peds IV (13:36)
[2022-12-20 14:04] VITALS: BP 144/52; PULSE 58; RESP 20; TEMP 36.3; O2SAT 92
[2022-12-20 14:19] VITALS: BP 143/48; PULSE 62; RESP 16; TEMP 36.8
[2022-12-20 15:19] VITALS: BP 163/47; PULSE 64; RESP 16; TEMP 37.1
[2022-12-20 16:08] VITALS: BP 162/47; PULSE 65; RESP 16; TEMP 37.3; O2SAT 90
== END 2022-12-20 12:31 | disposition home or self-care (01) ==
LOC: MEDOUTP 12:34
PROVIDERS: PCP Family Medicine; Referring Provider Internal Medicine; Visit Provider Internal Medicine
DX: D64.9 Anemia, unspecified (principal)
CPT/HCPCS: 36430; 86850; 86900; 86901; 86920; 86922; J7040; P9016; A4216

== ENCOUNTER 2022-12-22 21:08 | Emergency (ER) | payer MEDICARE, MEDICAID, SELFPAY ==
[2022-12-22 21:10] VITALS: BP 159/49; PULSE 69; RESP 18; TEMP 36.8; O2SAT 76; BMI 33.2
[2022-12-22 21:17] VITALS: O2SAT 92
--- NOTE | 2022-12-22 21:57 | EDS_ITS ---
HPI History of Present Illness HPI Narrative: 62-year-old female. History of diabetes end-stage renal disease dialysis. Recently had a fistula placed in her right upper arm and had it revised at the [facility]. Over the last several days has become red, warm and uncomfortable. She believes it is infected. Chief Complaint: Wound Informant: patient Onset/Context/Timing Onset: Days Context: Gradual Onset Timing: Continuous Current Severity: Mild Maximum Severity: Mild Associated Symptoms Associated Symptoms: Negative for Parasthesia, Weakness or Loss of Funtion Narrative Narrative: 62-year-old female with a history of diabetes, end-stage renal disease dialysis. Recent fistula with revision right upper extremity. Now red, warm and tender. Concerned it is infected. Prior similar symptoms: No Recent Illness/Hospitalization: Yes PFSH PFSH Medical History Anxiety Asthma Congestive heart failure (CHF) Coronary artery disease Depression Diabetes Dialysis patient History of high cholesterol Kidney disease Migraines Myocardial infarct PTSD (post-traumatic stress disorder) Sleep apnea Substance abuse Home Medications albuterol sulfate 90 mcg/actuation aerosol inhaler (Ventolin HFA) 2 puff inhalation Q4H PRN PRN Wheezing 05/14/18 [History Last Taken 11/14/22] acetaminophen 500 mg tablet 500 mg PO Q6H PRN PRN Pain 04/18/19 [History Last Taken Unknown] nifedipine 60 mg tablet,extended release 60 mg PO BID Check with primary doctor 07/15/21 [History Last Taken 11/14/22] cholecalciferol (vitamin D3) 25 mcg (1,000 unit) capsule 25 mcg PO DAILY supplement 10/02/21 [History Last Taken 11/14/22] albuterol sulfate 90 mcg/actuation aerosol inhaler (Ventolin HFA) 1 - 2 puff inhalation Q4H PRN PRN Wheezing #1 ea 11/14/22 [Rx Last Taken Unknown] aspirin 81 mg tablet,delayed release 81 mg PO DAILY heart 11/14/22 [History Last Taken 11/14/22] atorvastatin 80 mg tablet 80 mg PO DINNER cholesterol 11/14/22 [History Last Taken 11/13/22] carvedilol 25 mg tablet 25 mg PO BID heart 11/14/22 [History Last Taken 11/14/22] clonidine 0.1 mg/24 hr weekly transdermal patch 1 patch transdermal QWEEK bp? 11/14/22 [History Last Taken 11/10/22] clopidogrel 75 mg tablet 75 mg PO DAILY heart 11/14/22 [History Last Taken 11/14/22] furosemide 80 mg tablet (Lasix) See Rx Instructions .Route .COMPLEX water pill 11/14/22 [History Last Taken 11/14/22] mirtazapine 7.5 mg tablet 7.5 mg PO QHS sleep 11/14/22 [History Last Taken 11/13/22] nitroglycerin 0.4 mg sublingual tablet 0.4 mg sublingual DAILY PRN Heartburn 11/14/22 [History Last Taken Unknown] pantoprazole 40 mg tablet,delayed release 40 mg PO DAILY Check with primary doctor 11/14/22 [History Last Taken 11/14/22] prednisone 20 mg tablet 50 mg PO DAILY steroid 11/14/22 [History Last Taken 11/14/22] sevelamer carbonate 800 mg tablet 800 mg PO TIDCM Check with primary doctor 11/14/22 [History Last Taken 11/14/22] vitamin B complex-vitamin C-folic acid 0.8 mg tablet (Mojgan-Kirk) 1 tab PO DAILY supplement 11/14/22 [History Last Taken 11/14/22] azithromycin 500 mg tablet 500 mg PO DAILY 5 days #5 tabs 11/16/22 [Rx Last Taken Unknown] guaifenesin 600 mg tablet, extended release 12 hr (Mucus Relief ER) 1,200 mg PO Q12H cough #20 tabs 11/16/22 [Rx Last Taken Unknown] prednisone 20 mg tablet 40 mg PO DAILY #10 tabs 11/16/22 [Rx Last Taken Unknown] Allergy/AdvReac Type Severity Reaction Status Date / Time Latex, Natural Rubber Allergy Rash Verified 12/22/22 21:15 Penicillins Allergy Rash Verified 12/22/22 21:15 Family History Other CAD (coronary artery disease) Heart disease Surgical History H/O tubal ligation History of section, classical History of coronary artery stent placement Social History Smoking Status: Current every day smoker tobacco type: cigarettes ROS ROS ED ROS Narrative Right upper arm red and swollen. Tender. Review of Systems ROS Unobtainable: Denies due to encephalopathy Constitutional Constitutional ED: Denies chills or fever(s) Eyes Eyes: Denies blurry vision ENT ENT ED: Denies ear pain Cardiovascular Cardiovascular: Denies chest pain Respiratory/Chest Respiratory/Chest: Denies cough Gastrointestinal Gastrointestinal: Denies abdominal pain, constipation, diarrhea, melena, nausea or vomiting Genitourinary Genitourinary ED: Denies dysuria Musculoskeletal Musculoskeletal: Denies back pain Integumentary Denies abscess Neurologic Neurologic: Denies headache(s) Psychiatric Psychiatric: Denies anxiety or depression Hematologic/Lymphatic Hematologic/Lymphatic: Denies easy bleeding Allergic/Immunologic Allergic/Immunologic ED: Denies mouth swelling EXAM Physical Exam Narrative Exam Narrative: 62-year-old female no acute distress. Vital signs stable afebrile. She is typically on oxygen her nasal cannula is 92 on 4 L. H EENT exam unremarkable. Neck nontender no JVD. Lungs clear to auscultation. Heart regular rhythm no murmur. Chest wall nontender. She has a right-sided Vas-Cath. Abdomen soft nontender. Moving all 4 extremities. Right medial upper arm by the bicep medially she has a fistula that appears to be infected. It is red, swollen, tender with some drainage. Primarily edematous fluid I do not see any kira pus. 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 Left lower extremity swelling at the graft from those incisions are dry and clean. Calves are nontender without edema. Neurologically she is awake and alert. Const Vital Signs: 12/22/22 21:10 12/22/22 21:17 Temperature 98.2 F Temperature Source Oral Pulse Rate 69 Respiratory Rate 18 Blood Pressure 159/49 H Blood Pressure Mean 85 Pulse Ox 76 92 Oxygen Delivery Method Room Air Nasal Cannula Oxygen Flow Rate (L/min) 4 Positive well nourished, well developed and obese; Negative for cachectic, contractures or unkempt General Appearance ED: well developed and NAD; Negative for unkempt, cachectic, contractures, cyanotic or diaphoretic Nutritional Appearance: obese; Negative for cachectic HEENT Reports moist mucous membranes normocephalic and atraumatic; Negative for trauma or tenderness Eyes PERRL and EOMs intact bilaterally General Eye ED: Negative for other Neck full ROM and supple General: Negative for tenderness Lymph Lymphatic: Negative for other Chest Wall inspection of chest normal and palpation of chest normal Chest: Negative for other Resp normal respiratory effort and clear to auscultation bilaterally Effort and Inspection: Negative for pain with movement Auscultation: Negative for rales, rhonchi or wheezes Cardio regular rate, regular rhythm, S1 normal heart sound, S2 normal heart sound and no murmurs GI non-tender, non-distended and no masses Inspection: Negative for abdominal distention Auscultation: normoactive bowel sounds Palpation: soft; Negative for tender Back/Spine no CVA tenderness General Back: Negative for CVA tenderness Cervical Spine: Negative for cervical spine tenderness Thoracic Spine / Upper Back: Negative for thoracic spinal tenderness Lumbar Spine / Lower Back: Negative for lumbar spinal tenderness Extremity full ROM; Negative for normal to inspection Extremity Narrative: Status post right upper arm fistula that is now infected with redness, tenderness and cellulitis. Hand is neurovascularly intact. General Extremety ED: Yes edema General Extremity: edema Neuro oriented x3, CN's II-XII intact bilaterally, moves all extremities and no focal motor deficits Sensorium / Orientation: alert, oriented to person, oriented to place and oriented to time; Negative for orientation impaired or lethargic Motor Exam: strength 5/5 throughout Psych mental status grossly normal Appearance: Negative for unkempt Attitude: No agitated Mood & Affect: Negative for depressed, anxious or tearful Skin Skin Narrative: Right upper arm incision is infected. Surrounding cellulitis. General Skin Exam: Negative for petechiae Lesions: no lesions Rashes: No no rashes and rashes noted Trauma: no lacerations or abrasions MDM MDM MDM Narrative Medical decision making narrative: 62-year-old status post dialysis fistula right arm that needs revised. Now is infected. She was started on IV Unasyn. Screening labs will be obtained. She had this initially done about 3-1/2 weeks ago at [facility] I will contact them to see if they will accept her back in transfer. Repeat exam patient is doing well at 1045. The cellulitis does not look any worse. She is receiving her IV Unasyn. She did receive morphine for pain and said it greatly improved her discomfort. She is resting comfortably. I am awaiting to speak to the [facility] if they can take her she will be transferred there. If they have no bed available she will be admitted here. History & Record Review Discussion w/independent historian: Patient Lab Data Attestation: I reviewed the patient's lab results. Lab results narrative: CBC shows an elevated white count 18.3. The patient is chronically anemic as a hemoglobin of 7.9 with hematocrit of 23 which is her baseline. Chemistries unremarkable glucose of 130. Dialysis patient BUN of 55 creatinine 4.73. Discharge Plan Triage Chief Complaint: Wound ED Provider: Mario Gregory Dx/Rx/DC Orders Clinical Impression: Cellulitis of arm, right, Infected surgical wound, History of diabetes leslie litus, History of end stage renal disease, Family history of anemia of chronic illness Prescriptions: No Action albuterol sulfate [Ventolin HFA] 1 INHALER inhaler 2 puff inhalation Q4H PRN PRN (Reason: Wheezing) acetaminophen 500 MG tablet 500 mg PO Q6H PRN PRN (Reason: Pain) nifedipine 60 mg Tablet Extended Release 60 mg PO BID cholecalciferol (vitamin D3) 25 mcg (1,000 unit) capsule 25 mcg PO DAILY Label Comments: Take 1 capsule by mouth once daily. albuterol sulfate [Ventolin HFA] 90 mcg/actuation HFA aerosol inhaler 1 - 2 puff inhalation Q4H PRN PRN (Reason: Wheezing) Qty: 1 0RF atorvastatin 80 mg tablet 80 mg PO DINNER Label Comments: Take 1 tablet by mouth daily at bedtime. carvedilol 25 mg tablet 25 mg PO BID Label Comments: TAKE 1 TABLET BY MOUTH TWICE DAILY clonidine 0.1 mg/24 hr patch weekly 1 patch transdermal QWEEK Label Comments: APPLY 1 PATCH EVERY WEEK Rx Instructions: Every fri clopidogrel 75 mg tablet 75 mg PO DAILY Label Comments: Take 1 tablet by mouth once daily. aspirin 81 mg tablet,delayed release (DR/EC) 81 mg PO DAILY furosemide [Lasix] 80 mg Tablet See Rx Instructions .ROUTE .COMPLEX Rx Instructions: 1 tab once daily on , , sat 1 tabe twice daily on mon, wed, fri, and sun pantoprazole 40 mg tablet,delayed release (DR/EC) 40 mg PO DAILY Label Comments: TAKE 1 TABLET BY MOUTH EVERY DAY at 6am Mojgan-Kirk 0.8 mg tablet 1 tab PO DAILY Label Comments: TAKE 1 TABLET BY MOUTH EVERY DAY mirtazapine 7.5 mg tablet 7.5 mg PO QHS Label Comments: Take 1 tablet by mouth daily at bedtime. sevelamer carbonate 800 mg tablet 800 mg PO TIDCM Label Comments: TAKE 1 TABLET BY MOUTH THREE TIMES A DAY WITH MEALS prednisone 20 mg tablet 50 mg PO DAILY nitroglycerin 0.4 mg tablet, sublingual 0.4 mg sublingual DAILY PRN (Reason: Heartburn) Label Comments: Dissolve 1 tablet under the tongue as needed for chest pain. prednisone 20 mg tablet 40 mg PO DAILY Qty: 10 0RF azithromycin 500 mg tablet 500 mg PO DAILY 5 Days Qty: 5 0RF guaifenesin [Mucus Relief ER] 600 mg tablet extended release 12hr 1,200 mg PO Q12H Qty: 20 0RF Primary Care Provider: Elvin Becerra Referrals: Elvin Becerra MD [Primary Care Provider] - Disposition Disposition: Acute Care Hospital
[2022-12-22 22:15] LABS: Absolute Lymphocyte Count 0.75 X10^3/uL (0.83-4.51); Basophil# 0.04 X10^3/uL; Basophil% 0.2 % (0-1); Eosinophil# 0.11 X10^3/uL; Eosinophils% 0.6 % (0-5); Hemoglobin 7.9 g/dL (12.0-15.0); Lymphocyte # 0.75 X10^3/ul (0.83-4.51); Lymphocyte % 4.1 % (19-41); Mean Corp Hgb Conc 34.3 g/dL (32-36); Mean Corpuscular Hgb 33.6 pg (27.0-32.0); Mean Corpuscular Volume 97.9 fL (81-99); Mean Platelet Vol. 9.7 fl (6.2-12.0); Monocyte# 1.23 X10^3/uL; Monocyte% 6.7 % (0-10); NRBC Flagged by Analyzer 0 % (0-5); Neutrophil # 16.01 X10^3/uL (2.7-7.7); Neutrophil % 87.6 % (47-70); Platelet Count 175 K/mm3 (150-450); RBC Distribution Width CV 14.5 % (11.6-14.6); RBC Distribution Width SD 51.9 fl (35.1-43.9); Red Blood Count 2.35 M/mm3 (4.2-5.4); White Blood Count 18.3 K/mm3 (4.4-11.0)
[2022-12-22 22:19] LABS: POSITIVE DIFFERENTIAL NO
[2022-12-22 22:20] LABS: POSITIVE COUNT NO; POSITIVE MORPHOLOGY NO
[2022-12-22] MEDS: Ondansetron 4 MG/2 ML Vial IV (22:20)
[2022-12-22] MEDS: Morphine 4 MG/ML Syringe IV (22:21)
[2022-12-22 22:34] LABS: Anion Gap 7 (5-15); BUN 55 mg/dL (7-18); BUN/Creat Ratio 11.6 RATIO (10-20); Calcium,Total 8.8 mg/dL (8.5-10.1); Chloride 102 mmol/L (98-107); Creatinine, Serum 4.73 mg/dL (0.55-1.02); EST Glomerular Filtration Rate 10 mL/min (>60); Est Glom Filt Rate - Afr Amer 12 mL/min (>60); Estimated Creatinine Clearance 9.94 ml/min; Glucose 130 mg/dL (74-106); Potassium 3.5 mmol/L (3.5-5.1); Sodium Level 134 mmol/L (136-145)
[2022-12-22 23:08] VITALS: PULSE 62; RESP 18; O2SAT 92
[2022-12-23 01:00] VITALS: BP 160/55; PULSE 60; RESP 17; O2SAT 96
[2022-12-23 01:12] VITALS: BP 158/77; PULSE 63; RESP 17; O2SAT 93
[2022-12-23] MEDS: Morphine 4 MG/ML Syringe IV (02:57)
== END 2022-12-23 03:16 | disposition short-term general hospital (02) ==
PROVIDERS: Emergency Provider Emergency Medicine; PCP Family Medicine; Visit Provider Emergency Medicine
DX: T81.49XA Infection following a procedure, other surgical site, initial encounter (principal); I50.9 Heart failure, unspecified; E11.22 Type 2 diabetes mellitus with diabetic chronic kidney disease; N18.6 End stage renal disease; L03.113 Cellulitis of right upper limb; I25.10 Atherosclerotic heart disease of native coronary artery without angina pectoris; E78.00 Pure hypercholesterolemia, unspecified; F17.210 Nicotine dependence, cigarettes, uncomplicated; D64.9 Anemia, unspecified; J45.909 Unspecified asthma, uncomplicated; Z79.899 Other long term (current) drug therapy; Z79.82 Long term (current) use of aspirin; Z79.02 Long term (current) use of antithrombotics/antiplatelets; G47.30 Sleep apnea, unspecified; Z95.5 Presence of coronary angioplasty implant and graft
CPT/HCPCS: 80048; 85025; 96365; 96366; 96375; 96376; 99284; J7050; A4216; J0295; J2405

== ENCOUNTER 2023-03-27 10:22 | Emergency (ER) | payer MEDICARE, MEDICAID, SELFPAY ==
[2023-03-27] VITALS (7 sets, daily range): BP systolic 105–166; BP diastolic 61–64; PULSE 64–65; RESP 18–20; TEMP 36.4; O2SAT 85–93; BMI 30.7
--- NOTE | 2023-03-27 10:38 | ED.VIS.LOWEX ---
HPI History of Present Illness HPI Narrative: Patient presents with left knee injury that occurred today. Patient states she tripped over her neighbors dog's leash. Patient states she landed on both knees but her left knee is worse. Patient states her pain is worse with any weightbearing. Patient describes the pain as sharp and throbbing. Patient states she has some weakness in her left knee due to the pain. Patient denies any paresthesias. Patient states she did hit her head but denies any loss of consciousness. Patient denies any other injuries. Chief Complaint: Lower Extremity Injury Informant: patient Occured/Mechanism Mechanism/Context: Yes fall Onset/Context/Timing Onset: Today Context: Sudden Onset Timing: Continuous Quality of Pain: Sharp and Throbbing Location: Left knee Worsened by: Weightbearing Relieved by: Nothing Associated Symptoms Associated Symptoms: Positive for Weakness; Negative for Parasthesia or Loss of Funtion Narrative Tetanus Immunization: Unknown [facility] Medical History Anxiety Asthma Congestive heart failure (CHF) Coronary artery disease Depression Diabetes Dialysis patient History of high cholesterol Kidney disease Migraines Myocardial infarct PTSD (post-traumatic stress disorder) Sleep apnea Substance abuse Home Medications albuterol sulfate 90 mcg/actuation aerosol inhaler (Ventolin HFA) 2 puff inhalation Q4H PRN PRN Wheezing 05/14/18 [History Last Taken 11/14/22] acetaminophen 500 mg tablet 500 mg PO Q6H PRN PRN Pain 04/18/19 [History Last Taken Unknown] nifedipine 60 mg tablet,extended release 60 mg PO BID Check with primary doctor 07/15/21 [History Last Taken 11/14/22] cholecalciferol (vitamin D3) 25 mcg (1,000 unit) capsule 25 mcg PO DAILY supplement 10/02/21 [History Last Taken 11/14/22] albuterol sulfate 90 mcg/actuation aerosol inhaler (Ventolin HFA) 1 - 2 puff inhalation Q4H PRN PRN Wheezing #1 ea 11/14/22 [Rx Last Taken Unknown] aspirin 81 mg tablet,delayed release 81 mg PO DAILY heart 11/14/22 [History Last Taken 11/14/22] atorvastatin 80 mg tablet 80 mg PO DINNER cholesterol 11/14/22 [History Last Taken 11/13/22] carvedilol 25 mg tablet 25 mg PO BID heart 11/14/22 [History Last Taken 11/14/22] clonidine 0.1 mg/24 hr weekly transdermal patch 1 patch transdermal QWEEK bp? 11/14/22 [History Last Taken 11/10/22] clopidogrel 75 mg tablet 75 mg PO DAILY heart 11/14/22 [History Last Taken 11/14/22] furosemide 80 mg tablet (Lasix) See Rx Instructions .Route .COMPLEX water pill 11/14/22 [History Last Taken 11/14/22] mirtazapine 7.5 mg tablet 7.5 mg PO QHS sleep 11/14/22 [History Last Taken 11/13/22] nitroglycerin 0.4 mg sublingual tablet 0.4 mg sublingual DAILY PRN Heartburn 11/14/22 [History Last Taken Unknown] pantoprazole 40 mg tablet,delayed release 40 mg PO DAILY Check with primary doctor 11/14/22 [History Last Taken 11/14/22] prednisone 20 mg tablet 50 mg PO DAILY steroid 11/14/22 [History Last Taken 11/14/22] sevelamer carbonate 800 mg tablet 800 mg PO TIDCM Check with primary doctor 11/14/22 [History Last Taken 11/14/22] vitamin B complex-vitamin C-folic acid 0.8 mg tablet (Mojgan-Kirk) 1 tab PO DAILY supplement 11/14/22 [History Last Taken 11/14/22] azithromycin 500 mg tablet 500 mg PO DAILY 5 days #5 tabs 11/16/22 [Rx Last Taken Unknown] guaifenesin 600 mg tablet, extended release 12 hr (Mucus Relief ER) 1,200 mg (2 x 600 mg) PO Q12H cough #20 tabs 11/16/22 [Rx Last Taken Unknown] prednisone 20 mg tablet 40 mg (2 x 20 mg) PO DAILY #10 tabs 11/16/22 [Rx Last Taken Unknown] hydrocodone-acetaminophen 5-325mg 5mg-325mg 1 tab PO Q6H PRN PRN Pain 3 days #10 TABLETS 03/27/23 [Rx Last Taken Unknown] Allergy/AdvReac Type Severity Reaction Status Date / Time Latex, Natural Rubber Allergy Rash Verified 03/27/23 10:23 Penicillins Allergy Rash Verified 03/27/23 10:23 Family History Other CAD (coronary artery disease) Heart disease Surgical History H/O tubal ligation History of section, classical History of coronary artery stent placement Social History Smoking Status: Current every day smoker tobacco type: cigarettes ROS ROS ED Constitutional Constitutional ED: Denies chills or fever(s) Eyes Eyes: Denies blurry vision or change in vision ENT ENT ED: Denies rhinorrhea or sore throat Cardiovascular Cardiovascular: Denies chest pain or palpitations Respiratory/Chest Respiratory/Chest: Denies cough or dyspnea Gastrointestinal Gastrointestinal: Denies nausea or vomiting Genitourinary Genitourinary ED: Denies dysuria or hematuria Musculoskeletal Musculoskeletal: Denies back pain or neck pain Integumentary Denies abscess or rash Neurologic Neurologic: Denies headache(s) or weakness Allergic/Immunologic Allergic/Immunologic ED: Denies mouth swelling or urticaria EXAM Physical Exam Const Vital Signs: 03/27/23 10:23 Temperature 97.5 F L Temperature Source Temporal Pulse Rate 64 Respiratory Rate 20 H Blood Pressure 105/61 Blood Pressure Mean 75 Pulse Ox 91 Oxygen Delivery Method Room Air Positive well nourished and well developed General Appearance ED: well developed and NAD HEENT Reports moist mucous membranes Extremity Extremity Narrative: There is tenderness, edema, and ecchymosis over the anterior and lateral aspects of the left knee. There is no obvious deformity noted. There is no effusion noted. Range of motion was limited in flexion of the left knee secondary to pain. There is no laxity appreciated. There is no obvious deformity noted. Pedal pulses are equal bilaterally. Sensation was intact to light touch bilaterally in the lower extremities. Strength is 5/5 bilaterally in the lower extremities. Extensor mechanism is intact. Neuro oriented x3, CN's II-XII intact bilaterally, moves all extremities and no sensory deficits noted Sensorium / Orientation: alert Motor Exam: strength 5/5 throughout Psych mental status grossly normal MDM MDM MDM Narrative Medical decision making narrative: Differential diagnosis includes left knee sprain, fracture, and contusion. X-rays of the left knee will be obtained to assess for fracture. Radiography Diagnostic Testing: Clinical Impression(s) from Imaging Studies Knee X-Ray 03/27/23 11:04 IMPRESSION: No acute abnormality is seen. Electronically Signed: Richard Ndiaye MD at 11:17 EDT , X-rays of the left knee were obtained. There are 4 views. On my independent interpretation, there is no acute fracture or dislocation noted. Radiologist also interpreted the x-rays and agrees. Treatment and Re-Evaluation Narrative: Smoking cessation was discussed. Patient was advised of her findings. Patient was instructed to ice and elevate the left knee. Patient was given a prescription for a short course of Remer to take as needed for pain. Patient was instructed to follow-up with her primary care physician in 5 to 7 days. Discharge Plan Triage Chief Complaint: Lower Extremity Injury ED Provider: Amrit Puente Dx/Rx/DC Orders Clinical Impression: Left knee sprain, Smoker Instructions: ED Knee Sprain Prescriptions: New hydrocodone-acetaminophen [hydrocodone-acetaminophen] 5-325 mg tablet 1 tab PO Q6H PRN PRN (Reason: Pain) 3 Days Qty: 10 0RF No Action albuterol sulfate [Ventolin HFA] 1 INHALER inhaler 2 puff inhalation Q4H PRN PRN (Reason: Wheezing) acetaminophen 500 MG tablet 500 mg PO Q6H PRN PRN (Reason: Pain) nifedipine 60 mg Tablet Extended Release 60 mg PO BID cholecalciferol (vitamin D3) 25 mcg (1,000 unit) capsule 25 mcg PO DAILY Patient Comments: Take 1 capsule by mouth once daily. albuterol sulfate [Ventolin HFA] 90 mcg/actuation HFA aerosol inhaler 1 - 2 puff inhalation Q4H PRN PRN (Reason: Wheezing) Qty: 1 0RF atorvastatin 80 mg tablet 80 mg PO DINNER Patient Comments: Take 1 tablet by mouth daily at bedtime. carvedilol 25 mg tablet 25 mg PO BID Patient Comments: TAKE 1 TABLET BY MOUTH TWICE DAILY clonidine 0.1 mg/24 hr patch weekly 1 patch transdermal QWEEK Patient Comments: APPLY 1 PATCH EVERY WEEK Rx Instructions: Every sun clopidogrel 75 mg tablet 75 mg PO DAILY Patient Comments: Take 1 tablet by mouth once daily. aspirin 81 mg tablet,delayed release (DR/EC) 81 mg PO DAILY furosemide [Lasix] 80 mg Tablet See Rx Instructions .ROUTE .COMPLEX Rx Instructions: 1 tab once daily on , th, sat 1 tabe twice daily on mon, wed, fri, and sun pantoprazole 40 mg tablet,delayed release (DR/EC) 40 mg PO DAILY Patient Comments: TAKE 1 TABLET BY MOUTH EVERY DAY at 6am Mojgan-Kirk 0.8 mg tablet 1 tab PO DAILY Patient Comments: TAKE 1 TABLET BY MOUTH EVERY DAY mirtazapine 7.5 mg tablet 7.5 mg PO QHS Patient Comments: Take 1 tablet by mouth daily at bedtime. sevelamer carbonate 800 mg tablet 800 mg PO TIDCM Patient Comments: TAKE 1 TABLET BY MOUTH THREE TIMES A DAY WITH MEALS prednisone 20 mg tablet 50 mg PO DAILY nitroglycerin 0.4 mg tablet, sublingual 0.4 mg sublingual DAILY PRN (Reason: Heartburn) Patient Comments: Dissolve 1 tablet under the tongue as needed for chest pain. prednisone 20 mg tablet 40 mg PO DAILY Qty: 10 0RF azithromycin 500 mg tablet 500 mg PO DAILY 5 Days Qty: 5 0RF guaifenesin [Mucus Relief ER] 600 mg tablet extended release 12hr 1,200 mg PO Q12H Qty: 20 0RF Primary Care Provider: Elvin Becerra Referrals: Elvin Becerra MD [Primary Care Provider] - 5-7 Days Disposition Disposition: Home, Self Care
--- NOTE | 2023-03-27 11:04 | RAD_ITS ---
STUDY: X-RAY - LEFT KNEE REASON FOR EXAM: Female, 63 years old. Injury/Pain TECHNIQUE: 4 view(s) of the knee. COMPARISON: None. FINDINGS: Normal visualized distal femur. Normal visualized proximal tibia and fibula. Normal proximal tibiofibular articulation. Normal medial femorotibial compartment. Normal lateral femorotibial compartment. Normal patellofemoral articulation. Surgical clips are seen overlying the medial aspect of the thigh suggestive of possible vascular procedure. RAD/Knee 4 or More Views IMPRESSION: No acute abnormality is seen. Electronically Signed: Ricahrd Ndiaye MD at 11:17 EDT ,
--- NOTE | 2023-03-27 12:27 | ED.RN ---
PT STATES TO THIS RN AT 1228 THAT SHE TOOK HOME INHALER TO IMPROVE SPO2. PT NOW 88% ON ROOM AIR.
== END 2023-03-27 12:54 | disposition home or self-care (01) ==
PROVIDERS: Emergency Provider Emergency Medicine; PCP Family Medicine; Visit Provider Emergency Medicine
DX: S83.92XA Sprain of unspecified site of left knee, initial encounter (principal); I50.9 Heart failure, unspecified; E11.9 Type 2 diabetes mellitus without complications; F17.210 Nicotine dependence, cigarettes, uncomplicated; I25.10 Atherosclerotic heart disease of native coronary artery without angina pectoris; E78.00 Pure hypercholesterolemia, unspecified; Z79.899 Other long term (current) drug therapy; Z79.82 Long term (current) use of aspirin; Z79.02 Long term (current) use of antithrombotics/antiplatelets; G47.30 Sleep apnea, unspecified; I25.2 Old myocardial infarction; Z95.5 Presence of coronary angioplasty implant and graft; W01.10XA Fall on same level from slipping, tripping and stumbling with subsequent striking against unspecified object, initial encounter
CPT/HCPCS: 73564; 99282

== ENCOUNTER 2023-06-21 11:26 | Emergency (ER) | payer MEDICARE, MEDICAID, SELFPAY ==
[2023-06-21 11:28] VITALS: BP 193/62; PULSE 70; RESP 18; TEMP 35.7; O2SAT 95; BMI 29.4
--- NOTE | 2023-06-21 12:01 | EDS_ITS ---
HPI History of Present Illness HPI Narrative: Patient presents with hematoma to her right upper arm that has been getting worse over the past 1 to 2 weeks. Patient states she was at dialysis and moved her arm. Patient states that her dialysis infiltrated. Patient states she has been going to dialysis since this happened and she has not had any problems accessing her dialysis fistula. Patient states she has been getting dialysis regularly without any problems. Patient states she has some pain in her right upper arm whenever she bumps it on something. Patient admits to some chronic numbness and tingling in her right arm but denies any other paresthesias or weakness. Patient denies any fevers or chills. Patient states they told me to come to the emergency department to see if it could be drained. Chief Complaint: Wound Check Informant: patient Onset/Context/Timing Onset: Weeks Context: Sudden Onset Timing: Continuous Quality of Pain: Dull and Aching Location: Right upper arm Worsened by: Palpation Relieved by: Nothing Associated Symptoms Associated Symptoms: Positive for Parasthesia (Chronic); Negative for Weakness or Loss of Funtion PFS PFS Medical History Anxiety Asthma Congestive heart failure (CHF) Coronary artery disease Depression Diabetes Dialysis patient History of high cholesterol Kidney disease Migraines Myocardial infarct PTSD (post-traumatic stress disorder) Sleep apnea Substance abuse Home Medications albuterol sulfate 90 mcg/actuation aerosol inhaler (Ventolin HFA) 2 puff inhalation Q4H PRN PRN Wheezing 05/14/18 [History Last Taken 11/14/22] acetaminophen 500 mg tablet 500 mg PO Q6H PRN PRN Pain 04/18/19 [History Last Taken Unknown] nifedipine 60 mg tablet,extended release 60 mg PO BID Check with primary doctor 07/15/21 [History Last Taken 11/14/22] cholecalciferol (vitamin D3) 25 mcg (1,000 unit) capsule 25 mcg PO DAILY supplement 10/02/21 [History Last Taken 11/14/22] albuterol sulfate 90 mcg/actuation aerosol inhaler (Ventolin HFA) 1 - 2 puff inhalation Q4H PRN PRN Wheezing #1 ea 11/14/22 [Rx Last Taken Unknown] aspirin 81 mg tablet,delayed release 81 mg PO DAILY heart 11/14/22 [History Last Taken 11/14/22] atorvastatin 80 mg tablet 80 mg PO DINNER cholesterol 11/14/22 [History Last Taken 11/13/22] carvedilol 25 mg tablet 25 mg PO BID heart 11/14/22 [History Last Taken 11/14/22] clonidine 0.1 mg/24 hr weekly transdermal patch 1 patch transdermal QWEEK bp? 11/14/22 [History Last Taken 11/10/22] clopidogrel 75 mg tablet 75 mg PO DAILY heart 11/14/22 [History Last Taken 11/14/22] furosemide 80 mg tablet (Lasix) See Rx Instructions .Route .COMPLEX water pill 11/14/22 [History Last Taken 11/14/22] mirtazapine 7.5 mg tablet 7.5 mg PO QHS sleep 11/14/22 [History Last Taken 11/13/22] nitroglycerin 0.4 mg sublingual tablet 0.4 mg sublingual DAILY PRN Heartburn 11/14/22 [History Last Taken Unknown] pantoprazole 40 mg tablet,delayed release 40 mg PO DAILY Check with primary doctor 11/14/22 [History Last Taken 11/14/22] sevelamer carbonate 800 mg tablet 800 mg PO TIDCM Check with primary doctor 0 11/14/22 [History Last Taken 11/14/22] vitamin B complex-vitamin C-folic acid 0.8 mg tablet (Mojgan-Kirk) 1 tab PO DAILY supplement 11/14/22 [History Last Taken 11/14/22] guaifenesin 600 mg tablet, extended release 12 hr (Mucus Relief ER) 1,200 mg (2 x 600 mg) PO Q12H cough #20 tabs 11/16/22 [Rx Last Taken Unknown] hydrocodone-acetaminophen 5-325mg 5mg-325mg 1 tab PO Q6H PRN PRN Pain 3 days #10 TABLETS 03/27/23 [Rx Last Taken Unknown] Allergy/AdvReac Type Severity Reaction Status Date / Time Latex, Natural Rubber Allergy Rash Verified 06/21/23 11:28 Penicillins Allergy Rash Verified 06/21/23 11:28 Family History Other CAD (coronary artery disease) Heart disease Surgical History H/O tubal ligation History of arteriovenostomy for renal dialysis History of section, classical History of colectomy History of coronary artery stent placement History of ligation of vein History of total hysterectomy Hx of umbilical hernia repair Social History Smoking Status: Current every day smoker tobacco type: cigarettes ROS ROS ED Constitutional Constitutional ED: Denies chills or fever(s) Eyes Eyes: Denies blurry vision or change in vision ENT ENT ED: Denies rhinorrhea or sore throat Cardiovascular Cardiovascular: Denies chest pain or palpitations Respiratory/Chest Respiratory/Chest: Denies cough or dyspnea Gastrointestinal Gastrointestinal: Denies nausea or vomiting Genitourinary Genitourinary ED: Denies dysuria or hematuria Musculoskeletal Musculoskeletal: Reports back pain; Denies neck pain Integumentary Denies abscess or rash Neurologic Neurologic: Denies headache(s) or weakness Allergic/Immunologic Allergic/Immunologic ED: Denies mouth swelling or urticaria EXAM Physical Exam Const Vital Signs: 06/21/23 11:28 Temperature 96.3 F L Temperature Source Temporal Pulse Rate 70 Respiratory Rate 18 Blood Pressure 193/62 H Blood Pressure Mean 105 Pulse Ox 95 Oxygen Delivery Method Room Air Positive well nourished and well developed General Appearance ED: well developed and NAD HEENT Reports moist mucous membranes Neck full ROM and supple Extremity Extremity Narrative: There is a hematoma to the right upper arm. It is soft. Upper arm compartments are soft. There is a palpable thrill over the fistula in the right upper arm. There is no thrill palpated over the hematoma. There is full range of motion. There is no deformity noted. Sensation was intact to light touch in the radial, median, and ulnar areas. Strength is 5/5 in the radial, median, and ulnar areas. Neuro oriented x3, CN's II-XII intact bilaterally, moves all extremities and no focal motor deficits Sensorium / Orientation: alert Motor Exam: strength 5/5 throughout Psych mental status grossly normal MDM MDM MDM Narrative Medical decision making narrative: Patient was advised that this is a localized hematoma to her right upper arm. I do not feel this requires emergent drainage. Patient was instructed to use warm compresses to the area. Patient was instructed to follow-up with her vascular surgeon for possible drainage. Patient was instructed to return if any worsening of the swelling or signs of compartment syndrome. Patient understands and is agreeable with the plan. All questions were answered. Discharge Plan Triage Chief Complaint: Wound Check ED Provider: Amrit Puente Dx/Rx/DC Orders Clinical Impression: Hematoma, ESRD (end stage renal disease) Instructions: ED Hematoma Prescriptions: No Action albuterol sulfate [Ventolin HFA] 1 INHALER inhaler 2 puff inhalation Q4H PRN PRN (Reason: Wheezing) acetaminophen 500 MG tablet 500 mg PO Q6H PRN PRN (Reason: Pain) nifedipine 60 mg Tablet Extended Release 60 mg PO BID cholecalciferol (vitamin D3) 25 mcg (1,000 unit) capsule 25 mcg PO DAILY Patient Comments: Take 1 capsule by mouth once daily. albuterol sulfate [Ventolin HFA] 90 mcg/actuation HFA aerosol inhaler 1 - 2 puff inhalation Q4H PRN PRN (Reason: Wheezing) Qty: 1 0RF atorvastatin 80 mg tablet 80 mg PO DINNER Patient Comments: Take 1 tablet by mouth daily at bedtime. carvedilol 25 mg tablet 25 mg PO BID Patient Comments: TAKE 1 TABLET BY MOUTH TWICE DAILY clonidine 0.1 mg/24 hr patch weekly 1 patch transdermal QWEEK Patient Comments: APPLY 1 PATCH EVERY WEEK Rx Instructions: Every fri clopidogrel 75 mg tablet 75 mg PO DAILY Patient Comments: Take 1 tablet by mouth once daily. aspirin 81 mg tablet,delayed release (DR/EC) 81 mg PO DAILY furosemide [Lasix] 80 mg Tablet See Rx Instructions .ROUTE .COMPLEX Rx Instructions: 1 tab once daily on tu, th, sat 1 tabe twice daily on mon, wed, fri, and sun pantoprazole 40 mg tablet,delayed release (DR/EC) 40 mg PO DAILY Patient Comments: TAKE 1 TABLET BY MOUTH EVERY DAY at 6am Mojgan-Kirk 0.8 mg tablet 1 tab PO DAILY Patient Comments: TAKE 1 TABLET BY MOUTH EVERY DAY mirtazapine 7.5 mg tablet 7.5 mg PO QHS Patient Comments: Take 1 tablet by mouth daily at bedtime. sevelamer carbonate 800 mg tablet 800 mg PO TIDCM Patient Comments: TAKE 1 TABLET BY MOUTH THREE TIMES A DAY WITH MEALS nitroglycerin 0.4 mg tablet, sublingual 0.4 mg sublingual DAILY PRN (Reason: Heartburn) Patient Comments: Dissolve 1 tablet under the tongue as needed for chest pain. guaifenesin [Mucus Relief ER] 600 mg tablet extended release 12hr 1,200 mg PO Q12H Qty: 20 0RF hydrocodone-acetaminophen [hydrocodone-acetaminophen] 5-325 mg tablet 1 tab PO Q6H PRN PRN (Reason: Pain) 3 Days Qty: 10 0RF Primary Care Provider: Elvin Becerra Referrals: Elvin Becerra MD [Primary Care Provider] - 5-7 Days Disposition Disposition: Home, Self Care
== END 2023-06-21 12:32 | disposition home or self-care (01) ==
PROVIDERS: Emergency Provider Emergency Medicine; PCP Family Medicine; Visit Provider Emergency Medicine
DX: S40.021A Contusion of right upper arm, initial encounter (principal); Z99.2 Dependence on renal dialysis; I50.9 Heart failure, unspecified; E11.22 Type 2 diabetes mellitus with diabetic chronic kidney disease; N18.6 End stage renal disease; E78.00 Pure hypercholesterolemia, unspecified; I25.10 Atherosclerotic heart disease of native coronary artery without angina pectoris; F17.210 Nicotine dependence, cigarettes, uncomplicated; X58.XXXA Exposure to other specified factors, initial encounter; Y92.89 Other specified places as the place of occurrence of the external cause; I25.2 Old myocardial infarction; J45.909 Unspecified asthma, uncomplicated; Z79.899 Other long term (current) drug therapy; Z79.82 Long term (current) use of aspirin; Z79.02 Long term (current) use of antithrombotics/antiplatelets; G47.30 Sleep apnea, unspecified; Z90.49 Acquired absence of other specified parts of digestive tract; Z95.5 Presence of coronary angioplasty implant and graft; Z90.710 Acquired absence of both cervix and uterus
CPT/HCPCS: 99282

== ENCOUNTER 2023-08-07 10:55 | Inpatient (IN) | payer MEDICARE, MEDICAID, SELFPAY ==
[2023-08-07] VITALS (18 sets, daily range): BP systolic 114–160; BP diastolic 53–127; PULSE 72–84; RESP 16–28; TEMP 36.2–37.3; O2SAT 81–99; BMI 29.6; BMI 27.4
--- NOTE | 2023-08-07 11:06 | EKG12_ITS ---
Test Reason : SOB Blood Pressure : / mmHG Vent. Rate : 075 BPM Atrial Rate : 075 BPM P-R Int : 152 ms QRS Dur : 076 ms QT Int : 432 ms P-R-T Axes : 047 045 040 degrees QTc Int : 482 ms Normal sinus rhythm Nonspecific ST and T wave abnormality Abnormal ECG Confirmed by ANDREA LENNON, BELEN ([id number]), editorial director BENNY WATKINS ([id number]) on 08/13/2023 7:04:19 AM Referred By: Confirmed By:KATELYN MENDEZ MD
--- NOTE | 2023-08-07 11:10 | ED.VIS.DYS ---
HPI History of Present Illness Chief Complaint: Shortness of Breath Detail of Chief Complaint: Dyspnea, cough, right-sided pleuritic chest pain Informant: patient Onset/Context/Timing Onset: Days Context: sudden Timing: Continuous and Waxes and wanes Quality: Positive for Dyspnea on exertion and Wheezing; Negative for Orthopnea or PND Current Severity: Mild Maximum Severity: Severe Worsened by: Exertion and Coughing Relieved by: Nothing Associated Symptoms cough and sweats; Negative for rhinorrhea, post nasal drip, ear pain, fever, sore throat, subjective or chills Chest Pain: Positive for Intermittent and Sharp (Over the right lower lobe anteriorly) Narrative Narrative: Patient is a 63-year-old woman with history of end-stage renal disease on hemodialysis Sunday, and Sunday. She had a Vas-Cath placed left side by Dr. Johnson June 13. Operative note was reviewed. Patient denies history of PE or DVT. She does report cough. She states she is unable to get the sputum up and out. She sleeps with 1 pillow. She denies PND. She denies leg pain, swelling or discoloration. She denies history of congestive heart failure. She denies ill contacts to her knowledge. Of note after reviewing prior records patient is noted to have history of congestive heart failure. She denies headache, visual, ocular auditory symptoms. She does endorse change in voice. That started 2 to 3 days ago. She denies abdominal pain, nausea, vomiting or diarrhea. She states she still urinates. She denies dysuria, frequency, urgency or hematuria. She reports compliance with her medication. PE Risk Factors: Negative for Cancer, OCP + Smoking + > 35, Prior DVT or PE, Recent immobilization, Recent surgery or Recent travel Prior similar symptoms: No Recent Illness/Hospitalization: No PFSH PFSH Medical History Anxiety Asthma Congestive heart failure (CHF) Coronary artery disease Depression Diabetes Dialysis patient History of high cholesterol Kidney disease Migraines Myocardial infarct PTSD (post-traumatic stress disorder) Sleep apnea Substance abuse Home Medications cholecalciferol (vitamin D3) 25 mcg (1,000 unit) capsule 50 mcg PO DAILY SUPPLEMENT 10/02/21 [History Last Taken 08/07/23] aspirin 81 mg tablet,delayed release 81 mg PO DAILY HEART 11/14/22 [History Last Taken 08/07/23] atorvastatin 80 mg tablet 80 mg PO QHS CHOLESTEROL 11/14/22 [History Last Taken 08/06/23] carvedilol 25 mg tablet 25 mg PO BID HEART 11/14/22 [History Last Taken 08/07/23] clopidogrel 75 mg tablet 75 mg PO DAILY BLOOD THINNER 11/14/22 [History Last Taken 08/07/23] furosemide 80 mg tablet (Lasix) 80 mg PO TUTHSA FLUID 11/14/22 [History Last Taken 08/07/23] mirtazapine 7.5 mg tablet 7.5 mg PO QHS INSOMNIA 11/14/22 [History Last Taken 08/06/23] nitroglycerin 0.4 mg sublingual tablet 0.4 mg sublingual DAILY PRN CHEST PAIN 11/14/22 [History Last Taken Unknown] pantoprazole 40 mg tablet,delayed release 40 mg PO DAILY ACID REFLUX 11/14/22 [History Last Taken 08/07/23] sevelamer carbonate 800 mg tablet 800 mg PO TIDCM PHOSPHATE 11/14/22 [History Last Taken 08/06/23] vitamin B complex-vitamin C-folic acid 0.8 mg tablet (Mojgan-Kirk) 1 tab PO DAILY SUPPLEMENT 11/14/22 [History Last Taken 08/07/23] guaifenesin 600 mg tablet, extended release 12 hr (Mucus Relief ER) 1,200 mg (2 x 600 mg) PO Q12H COUGH #20 tabs 11/16/22 [Rx Last Taken 08/07/23] acetaminophen 325 mg capsule 650 mg PO BID PRN PAIN 08/07/23 [History Last Taken 08/06/23] albuterol sulfate 90 mcg/actuation aerosol inhaler (Ventolin HFA) 1 puff inhalation Q4H PRN WHEEZING 08/07/23 [History Last Taken Unknown] furosemide 80 mg tablet 80 mg PO BID FLUID 08/07/23 [History Last Taken 08/06/23] nifedipine 90 mg tablet,extended release 24 hr 90 mg PO BID BLOOD PRESSURE 08/07/23 [History Last Taken 08/07/23] sertraline 25 mg tablet 25 mg PO DAILY DEPRESSION 08/07/23 [History Last Taken 08/07/23] Allergy/AdvReac Type Severity Reaction Status Date / Time Latex, Natural Rubber Allergy Rash Verified 06/21/23 11:28 Penicillins Allergy Rash Verified 06/21/23 11:28 Family History Other CAD (coronary artery disease) Heart disease Surgical History H/O tubal ligation History of arteriovenostomy for renal dialysis History of section, classical History of colectomy History of coronary artery stent placement History of ligation of vein History of total hysterectomy Hx of umbilical hernia repair Social History (Updated 08/07/23 @ 11:[address] Torsten Velasquez MD) household members: none Smoking Status: Current every day smoker tobacco type: cigarettes substance use type: does not use ROS ROS ED Constitutional Constitutional ED: Denies chills, fever(s), sweats or weight loss Eyes Eyes: Denies blurry vision, change in vision or diplopia ENT ENT ED: Denies ear pain, rhinorrhea or sore throat Cardiovascular Cardiovascular: Reports chest pain; Denies orthopnea, palpitations, paroxysmal nocturnal dyspnea or racing heartbeat Respiratory/Chest Respiratory/Chest: Reports cough, dyspnea, dyspnea on exertion and sputum; Denies orthopnea or paroxysmal nocturnal dyspnea Gastrointestinal Gastrointestinal: Denies abdominal pain, constipation, diarrhea, nausea or vomiting Genitourinary Genitourinary ED: Denies dysuria, hematuria or urinary frequency Musculoskeletal Musculoskeletal: Denies arthralgias or myalgias Integumentary Denies rash Neurologic Neurologic: Denies headache(s) or paresthesias Endocrine Endocrinology: Denies cold intolerance or heat intolerance Hematologic/Lymphatic Hematologic/Lymphatic: Denies easy bleeding or easy bruising EXAM Physical Exam Const Vital Signs: 08/07/23 10:57 08/07/23 11:08 08/07/23 11:09 Temperature 98.7 F 98.7 F 98.7 F Temperature Source Oral Oral Oral Pulse Rate 73 72 74 Respiratory Rate 17 22 H Respiratory Effort Respiratory Depth Respiratory Pattern Blood Pressure 157/127 H 157/127 H Blood Pressure Mean 137 137 Pulse Ox 86 81 86 Oxygen Delivery Method Nasal Cannula Nasal Cannula Nasal Cannula Oxygen Flow Rate (L/min) 4 4 08/07/23 11:19 08/07/23 11:20 08/07/23 11:28 Temperature Temperature Source Pulse Rate Respiratory Rate Respiratory Effort Short of Breath Labored Head Bobbing Respiratory Depth Shallow Respiratory Pattern Tachypnea Blood Pressure 114/93 H Blood Pressure Mean 100 Pulse Ox 97 Oxygen Delivery Method Nasal Cannula Nasal Cannula Oxygen Flow Rate (L/min) 4 4 08/07/23 11:42 08/07/23 11:23 08/07/23 12:25 Temperature 98.7 F Temperature Source Oral Pulse Rate 75 74 84 Respiratory Rate 28 H 24 H 18 Respiratory Effort Respiratory Depth Respiratory Pattern Normal Blood Pressure 155/57 H 146/65 H Blood Pressure Mean 89 92 Pulse Ox 95 95 Oxygen Delivery Method Nasal Cannula Nasal Cannula Oxygen Flow Rate (L/min) 4 4 08/07/23 14:03 Temperature 99.2 F H Temperature Source Oral Pulse Rate 78 Respiratory Rate 24 H Respiratory Effort Respiratory Depth Respiratory Pattern Blood Pressure 145/67 H Blood Pressure Mean 93 Pulse Ox 94 Oxygen Delivery Method Nasal Cannula Oxygen Flow Rate (L/min) 6 Positive well nourished, well developed and obese Constitutional Narrative: Patient is in obvious respiratory distress with use of accessory muscles and retractions. She gives 1-2 word sentences. She is able to say 1 or 2 letters of the alphabet before gasping for breath. She denies prior intubation. She states she does have a history of COPD. 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 General Appearance ED: well developed; Negative for NAD or pallor Nutritional Appearance: obese HEENT Reports dry mucous membranes HEENT Narrative: Ears are normal. Nares patent. Posterior pharynx unremarkable. Patient does have a hoarse voice. atraumatic Mouth ED: Yes dry mucous membranes Mouth: dry mucous membranes Eyes PERRL and EOMs intact bilaterally Eyes Narrative: Conjunctive are slightly pink. General Eye ED: Negative for scleral icterus Neck no lymphadenopathy, supple, no meningeal signs and no JVD Chest Wall Chest Narrative: Vas-Cath noted left subclavian region. Resp No normal respiratory effort and No clear to auscultation bilaterally Resp Narrative: Patient has use of accessory muscles. There is retractions. Trachea is midline. There is no stridor. Limited answers due to respiratory distress. There is increased expiratory phase with wheezing noted throughout. Breath sounds diminished left side greater than right. There is dullness to percussion on the left. Cardio regular rate, regular rhythm, S1 normal heart sound, S2 normal heart sound and no murmurs GI non-tender, non-distended and no masses Auscultation: normoactive bowel sounds Palpation: soft Back/Spine no CVA tenderness Extremity Extremity Narrative: There is mild edema of the lower extremities. Patient is noted to have a fistula right arm. General Extremety ED: Yes edema General Extremity: edema Neuro oriented x3, CN's II-XII intact bilaterally and no sensory deficits noted Bethesda Coma Scale: document GCS findings Spontaneous Obeys Commands Oriented 15 Sensorium / Orientation: alert Psych Attitude: agitated Skin Skin Narrative: There are multiple bruises noted. General Skin Exam: Negative for jaundice or pallor Sepsis Attestation Sepsis Attestation: Sepsis Ruled Out MDM MDM MDM Narrative Medical decision making narrative: Differential diagnoses include pneumothorax, exacerbated COPD due to respiratory infection, exacerbated COPD due to pneumonia, pulmonary embolus is a possibility since she is complaining of right-sided pleuritic chest pain. If chest x-ray does not reveal any abnormality and workup is unremarkable for infectious etiology will obtain CTA to evaluate for pulmonary embolus. Surgical record authored by Dr. Johnson was reviewed. Will obtain CTA to rule out pulmonary embolus also to help delineate if there is an infiltrate left lower lobe. White count is elevated. However differential is broad and uncertain whether patient truly does have an infectious process. Therefore will withhold antibiotics until CTA is performed. History & Record Review Additional record(s) reviewed:: Prior outpatient record, Prior ED visit and Prior labs Lab Data Attestation: I reviewed the patient's lab results. Lab results narrative: White count is elevated 16,000 with shift. There is no bandemia. Patient's hemoglobin is markedly elevated which raises concern for hemoconcentration. Patient's BUN is normal with a creatinine of 2.38. Per old records she is on hemodialysis Sunday, and Sunday. Albumin is slightly low at 2.5. Lactate is normal at 0.9. Labs: Laboratory Results - last 24 hr 08/07/23 11:20 WBC 16.0 H RBC 3.52 L Hgb 11.2 L Hct 35.0 L MCV 99.4 H MCH 31.8 MCHC 32.0 RDW Std Deviation 56.1 H RDW Coeff of Lola 15.6 H Plt Count 291 MPV 8.9 Immature Gran % (Auto) 0.600 Neut % (Auto) 89.7 H Lymph % (Auto) 2.6 L Pierce % (Auto) 5.7 Eos % (Auto) 1.0 Baso % (Auto) 0.4 Absolute Neuts (auto) 14.4 H Absolute Lymphs (auto) 0.41 L Nucleated RBC % 0 Differential Comment SCANNED Sodium 138 Potassium 3.2 L Chloride 97 L Carbon Dioxide 33.0 H Anion Gap 8 BUN 16 Creatinine 2.38 H Estim Creat Clear Calc 20.35 Est GFR (MDRD) Af Amer 26 L Est GFR (MDRD) Non-Af 22 L BUN/Creatinine Ratio 6.7 L Glucose 133 H Lactic Acid 0.9 Calcium 8.2 L Total Bilirubin 0.50 AST 15 ALT 17 Alkaline Phosphatase 67 Total Protein 7.3 Albumin 2.5 L Globulin 4.8 H Albumin/Globulin Ratio 0.5 L ABG Data Attestation: I personally reviewed and interpreted this ABG as follows: Interpretation: ABG reveals no acid-base disturbance. Patient does have a significant AA gradient. She is hypoxic. This is on 4 L. ABG results: ABG 08/07/23 12:10 Specimen Type ART Sample Site L Radial pH 7.45 Bicarbonate Actual 31.2 H Total CO2 33 Base Excess 7 H O2 Saturation 89 L O2 % 4.0 ABG pCO2 44.9 ABG pO2 54 L Kit Test Positive O2 Delivery Device Cannula Vent Mode Not entered Radiography Chest X-Ray - ED: 1 View and Read by ED Physician (Small right pleural effusion with possible atelectasis cannot rule out infiltrate. Patient has a significant left pleural effusion with obscuring of the left heart border. Unable to determine if there is infiltrate or not. This is a new finding since October 2022. Vas-Cath is noted left side.) Diagnostic Testing: Clinical Impression(s) from Imaging Studies Chest X-Ray 08/07/23 11:35 IMPRESSION: Mild degree of CHF with large left pleural effusion with the left basilar atelectasis with mild atelectasis at the right lung base. Electronically Signed: Richard Ndiaye MD at 12:34 EST , Chest CTA 08/07/23 12:38 IMPRESSION: Bilateral pleural effusions left greater than right with compressive atelectasis at the lung bases worse on the left side. Small to moderate sized pericardial effusion. 3.9 cm x 3 cm fat-containing mass in the right adrenal gland with calcifications. Unchanged since prior study dated April 18, 2019. Electronically Signed: Richard Ndiaye MD at 13:57 EST , CT of the chest for pulmonary embolus reveals a moderate to large left pleural effusion. There is a moderate right pleural effusion with atelectasis. There is no obvious PE per my review. Patient also has evidence of a pericardial effusion. Awaiting formal read by radiologist. Rhythm Strip Rhythm Strip: Sinus Rhythm Rate: 80 EKG Initial EKG: Attestation: I personally reviewed and interpreted this EKG as follows: Interpretation: Sinus Rhythm (Sinus rhythm rate of 75 with significant artifact due to respiratory distress. [place] interval is 152 ms. Cures duration 76 ms. QT duration 432 ms. [place] is normal.) Management Discussion w/another healthcare provider: Hospitalist (Hospitals been paged for admission. She was made aware of patient's history, physical and findings.) and Radiologist (Since the adrenal mass is calcified this will need further investigation.) Treatment and Re-Evaluation :: Patient is still complaining of significant right-sided pleuritic chest pain. CTA for pulm embolus was ordered. Patient will require admission. This will also help delineate if there is an infiltrate on the left side which may be obscured because of the significant left pleural effusion. Critical Care Time Critical Care Time: Yes Critical care time (excluding procedures): 30-74 minutes (32), Including time spent: (History, physical, documentation, independent rotation of laboratory results and chest x-ray,), Discussing w/Patient &/or Family/Weed Burner, Discussing w/Consultants and Arranging Admission or Transfer Discharge Plan Dx/Rx/DC Orders Clinical Impression: Acute hypoxemic respiratory failure, HLD (hyperlipidemia), Anemia of chronic disease, HTN (hypertension), Bilateral pleural effusion, Acute pericardial effusion, End-stage renal disease on hemodialysis, Pleuritic pain, Leukocytosis, Mass of right adrenal gland Disposition Disposition: [facility]
[2023-08-07] MEDS: MethylPREDNISolone 125 MG/2 ML Vial IV (11:22)
[2023-08-07] MEDS: Albuterol 2.5 MG/3 ML VIAL.NEB. INHALATION ×3 (11:23)
[2023-08-07] MEDS: Ipratropium/Albuterol Sulfate 3 ML AMPUL.NEB INHALATION ×2 (11:23→21:30)
[2023-08-07 11:25] LABS: Absolute Lymphocyte Count 0.41 X10^3/uL (0.83-4.51); Absolute Neutrophil Count 14.4 X10^3/uL (2.0-7.7); Basophil# 0.06 X10^3/uL; Basophil% 0.4 % (0-1); Eosinophil# 0.16 X10^3/uL; Hemoglobin 11.2 g/dL (12.0-15.0); Lymphocyte # 0.41 X10^3/ul (0.83-4.51); Lymphocyte % 2.6 % (19-41); Mean Corpuscular Hgb 31.8 pg (27.0-32.0); Mean Corpuscular Volume 99.4 fL (81-99); Mean Platelet Vol. 8.9 fl (6.2-12.0); Monocyte# 0.91 X10^3/uL; Monocyte% 5.7 % (0-10); NRBC Flagged by Analyzer 0 % (0-5); Neutrophil # 14.38 X10^3/uL (2.7-7.7); Neutrophil % 89.7 % (47-70); POSITIVE DIFFERENTIAL YES; Platelet Count 291 K/mm3 (150-450); RBC Distribution Width CV 15.6 % (11.6-14.6); RBC Distribution Width SD 56.1 fl (35.1-43.9); Red Blood Count 3.52 M/mm3 (4.2-5.4)
[2023-08-07 11:30] LABS: Differential Indicated SCAN CRITERIA MET
--- NOTE | 2023-08-07 11:35 | RAD_ITS ---
STUDY: X-RAY CHEST REASON FOR EXAM: Female, 63 years old. Cough, wheezing, respiratory distress TECHNIQUE: Single AP portable view of the chest. COMPARISON: Comparison is made with prior study dated November 14, 2022. FINDINGS: A left-sided dialysis catheter seen with the tip in the right atrium. EKG electrodes are seen. Surgical clips are seen overlying the proximal right arm. Large left pleural effusion with underlying atelectasis and/or infiltration. Blunting of the right burton angle with increased markings at the right lung base. Mild degree of CHF. Normal size heart. Normal mediastinum and mackenzie. Normal visualized pulmonary arteries. Normal visualized aortic arch and descending thoracic aorta. There are diffuse degenerative changes of the visualized thoracic spine. Normal visualized ribs, clavicles, and shoulders. There is no demonstrated abnormality of the visualized soft tissue structures of the upper abdomen. RAD/Chest 1 View (Portable) IMPRESSION: Mild degree of CHF with large left pleural effusion with the left basilar atelectasis with mild atelectasis at the right lung base. Electronically Signed: Richard Ndiaye MD at 12:34 EST ,
[2023-08-07 11:47] LABS: Differential Comment SCANNED
[2023-08-07 11:52] LABS: ALB/GLOB Ratio 0.5 RATIO (0.9-2.4); AST(SGOT) 15 U/L (15-37); Alanine Aminotransfer ALT/SGPT 17 U/L (13-56); Albumin, Serum 2.5 g/dL (3.2-5.0); Alkaline Phosphatase 67 U/L (45-117); Anion Gap 8 (5-15); BUN 16 mg/dL (7-18); BUN/Creat Ratio 6.7 RATIO (10-20); Calcium,Total 8.2 mg/dL (8.5-10.1); Chloride 97 mmol/L (98-107); Creatinine, Serum 2.38 mg/dL (0.55-1.02); EST Glomerular Filtration Rate 22 mL/min (>60); Est Glom Filt Rate - Afr Amer 26 mL/min (>60); Estimated Creatinine Clearance 20.35 ml/min; Globulin 4.8 g/dL (2.2-4.2); Glucose 133 mg/dL (74-106); Potassium 3.2 mmol/L (3.5-5.1); Protein, Total 7.3 g/dL (6.4-8.2); Sodium Level 138 mmol/L (136-145)
[2023-08-07 11:53] LABS: Lactic Acid 0.9 mmol/L (0.4-1.9)
[2023-08-07 12:13] LABS: Allen Test Positive; Base Excess 7 mmol/L (-2 to +2); Bicarbonate 31.2 mmol/L (22-26); Blood Gas Specimen Type ART; Mode Not entered; O2 Delivery Device Cannula; PO2 54 mmHG (75-100); SITE L Radial; SO2 89 % (95-99); Total Carbon Dioxide 33 mmol/L; pCO2 44.9 mmHg (35-45); pH 7.45 (7.35-7.45)
--- NOTE | 2023-08-07 12:38 | CT_ITS ---
STUDY: CTA CHEST REASON FOR EXAM: Female, 63 years old. PE high probability RADIATION DOSAGE (If Supplied By Facility): CTDIvol = ( 8.91 ) mGy, DLP = ( 506.17 ) mGycm TECHNIQUE: The examination was performed with the intravenous administration of IV 100mL [id number]. Post-processing of the angiographic images was performed, with multiplanar reformation and 3D reconstruction. Individualized dose optimization techniques were used for this CT. COMPARISON: Comparison is made with prior chest radiograph done earlier today. FINDINGS: Normal enhancement of the main pulmonary artery and right and left pulmonary arteries. Normal enhancement of the bilateral peripheral pulmonary arteries. There is no demonstrated pulmonary embolism. There is atherosclerotic calcification of the aortic arch with tortuosity. There is no demonstrated aortic dissection. Small to moderate-sized pericardial effusion. There are calcifications of the coronary arteries. Normal mediastinum. Normal hilar regions. Normal visualized trachea and bronchi. Bilateral pleural effusions left greater than right with compressive atelectasis at the lung bases worse on the left side. Normal pleura. Normal chest wall structures. There are degenerative changes of thoracic spine. There is a 3.9 cm x 3 cm fat-containing mass in the right adrenal gland with calcifications. This is unchanged as compared to prior CT scan the abdomen dated April 18, 2019. CT/CTA Chest W/WO Contrast IMPRESSION: Bilateral pleural effusions left greater than right with compressive atelectasis at the lung bases worse on the left side. Small to moderate sized pericardial effusion. 3.9 cm x 3 cm fat-containing mass in the right adrenal gland with calcifications. Unchanged since prior study dated April 18, 2019. Electronically Signed: Richard Ndiaye MD at 13:57 EST ,
[2023-08-07] MEDS: Morphine 4 MG/ML Syringe IV (12:42)
--- NOTE | 2023-08-07 14:05 | NURSING ---
DR LEIGHA CHAVEZ
--- NOTE | 2023-08-07 14:17 | NURSING ---
PCU [facility] RESP FAILURE, BILATERAL PLEURAL EFFUSION, PERICARDIAL EFFUSION
--- NOTE | 2023-08-07 14:27 | HP.PCM.HOS_ITS ---
HPI - General General Date of Admission: 08/07/23 Date of Service: 08/07/23 Chief Complaint: SOB HPI Narrative BARI LAUGHLIN, is a 63-year-old female history of end-stage renal disease on hemodialysis Sunday, , Sunday with Vas-Cath placed by Dr. Avila June 13, sleep apnea, PTSD, depression, coronary artery disease, GERD who presented to [facility] 08/07/2023 with cough and increasing shortness of breath with some pleuritic right-sided chest pain. In ED patient initially 81% on 4 L nasal cannula and became tachypneic with respiratory rate of 28 but this improved to 95% on 4 L nasal cannula and respiratory rate went down to 18, heart rate and blood pressure as well as temperature within normal limits. Did have ABG which showed pO2 of 54 on 4 L nasal cannula. In ED chest x-ray with large left pleural effusion and mild degree of CHF and CTA obtained given her pleuritic chest pain and this showed bilateral pleural effusions left greater than right with compressive atelectasis at bases and small to moderate pericardial effusion. Because of patient's tachypnea and hypoxia hospitalist contacted for admission. Patient evaluated at bedside and intermittently very irritable and uncooperative and was an inconsistent historian. Reported her shortness of breath is only been since last night however revealed she was recently started on 2 L of nasal cannula that she got on Sunday but was not able to explain this further. She said she has a chronic cough but feels it is worse today though she is not getting anything up, has also had some right-sided pleuritic chest pain since dialysis earlier today. Does seem to have some increased swelling in lower extremities as well. Unable to get any further meaningful history. [facility] Medical History Anxiety Asthma Congestive heart failure (CHF) Coronary artery disease Depression Diabetes Dialysis patient History of high cholesterol Kidney disease Migraines Myocardial infarct PTSD (post-traumatic stress disorder) Sleep apnea Substance abuse Home Medications cholecalciferol (vitamin D3) 25 mcg (1,000 unit) capsule 50 mcg PO DAILY SUPPLEMENT 10/02/21 [History Last Taken 08/07/23] aspirin 81 mg tablet,delayed release 81 mg PO DAILY HEART 11/14/22 [History Last Taken 08/07/23] atorvastatin 80 mg tablet 80 mg PO QHS CHOLESTEROL 11/14/22 [History Last Taken 08/06/23] carvedilol 25 mg tablet 25 mg PO BID HEART 11/14/22 [History Last Taken 08/07/23] clopidogrel 75 mg tablet 75 mg PO DAILY BLOOD THINNER 11/14/22 [History Last Taken 08/07/23] furosemide 80 mg tablet (Lasix) 80 mg PO TUTHSA FLUID 11/14/22 [History Last Taken 08/07/23] mirtazapine 7.5 mg tablet 7.5 mg PO QHS INSOMNIA 11/14/22 [History Last Taken 08/06/23] nitroglycerin 0.4 mg sublingual tablet 0.4 mg sublingual DAILY PRN CHEST PAIN 11/14/22 [History Last Taken Unknown] pantoprazole 40 mg tablet,delayed release 40 mg PO DAILY ACID REFLUX 11/14/22 [History Last Taken 08/07/23] sevelamer carbonate 800 mg tablet 800 mg PO TIDCM PHOSPHATE 11/14/22 [History Last Taken 08/06/23] vitamin B complex-vitamin C-folic acid 0.8 mg tablet (Mojgan-Kirk) 1 tab PO DAILY SUPPLEMENT 11/14/22 [History Last Taken 08/07/23] guaifenesin 600 mg tablet, extended release 12 hr (Mucus Relief ER) 1,200 mg (2 x 600 mg) PO Q12H COUGH #20 tabs 11/16/22 [Rx Last Taken 08/07/23] acetaminophen 325 mg capsule 650 mg PO BID PRN PAIN 08/07/23 [History Last Taken 08/06/23] albuterol sulfate 90 mcg/actuation aerosol inhaler (Ventolin HFA) 1 puff inhalation Q4H PRN WHEEZING 08/07/23 [History Last Taken Unknown] furosemide 80 mg tablet 80 mg PO BID FLUID 08/07/23 [History Last Taken 08/06/23] nifedipine 90 mg tablet,extended release 24 hr 90 mg PO BID BLOOD PRESSURE 08/07/23 [History Last Taken 08/07/23] sertraline 25 mg tablet 25 mg PO DAILY DEPRESSION 08/07/23 [History Last Taken 08/07/23] Allergy/AdvReac Type Severity Reaction Status Date / Time Latex, Natural Rubber Allergy Rash Verified 06/21/23 11:28 Penicillins Allergy Rash Verified 06/21/23 11:28 Family History Other CAD (coronary artery disease) Heart disease Surgical History H/O tubal ligation History of arteriovenostomy for renal dialysis History of section, classical History of colectomy History of coronary artery stent placement History of ligation of vein History of total hysterectomy Hx of umbilical hernia repair Social History (Updated 08/07/23 @ 11:[address] Torsten Velasquez MD) household members: none Smoking Status: Current every day smoker tobacco type: cigarettes substance use type: does not use ROS ROS Narrative General: Denies fever/chills HENT: Denies headache, denies stuffy nose, denies sore throat EYES: Denies changes in vision Resp: Increasing SOB, increasing cough x1 day Cardiac: Denies chest pain GI: Denies abdominal pain, denies changes in bowel, denies nausea/vomiting : Denies changes in urination Extremity: increased swelling in LE, left chronically > R MSK: Denies weakness Neuro: Denies any numbness/tingling Heme: Denies any bleeding or bruising Skin: Denies rashes Psychiatric: Increased irritable and does not want to stay Vital Signs Vital Signs Vital Signs: 08/07/23 10:57 08/07/23 11:08 08/07/23 11:09 Temperature 98.7 F 98.7 F 98.7 F Temperature Source Oral Oral Oral Pulse Rate 73 72 74 Respiratory Rate 17 22 H Respiratory Effort Respiratory Depth Respiratory Pattern Blood Pressure 157/127 H 157/127 H Blood Pressure Mean 137 137 Pulse Ox 86 81 86 Oxygen Delivery Method Nasal Cannula Nasal Cannula Nasal Cannula Oxygen Flow Rate (L/min) 4 4 08/07/23 11:19 08/07/23 11:20 08/07/23 11:28 Temperature Temperature Source Pulse Rate Respiratory Rate Respiratory Effort Short of Breath Labored Head Bobbing Respiratory Depth Shallow Respiratory Pattern Tachypnea Blood Pressure 114/93 H Blood Pressure Mean 100 Pulse Ox 97 Oxygen Delivery Method Nasal Cannula Nasal Cannula Oxygen Flow Rate (L/min) 4 4 08/07/23 11:42 08/07/23 11:23 08/07/23 12:25 Temperature 98.7 F Temperature Source Oral Pulse Rate 75 74 84 Respiratory Rate 28 H 24 H 18 Respiratory Effort Respiratory Depth Respiratory Pattern Normal Blood Pressure 155/57 H 146/65 H Blood Pressure Mean 89 92 Pulse Ox 95 95 Oxygen Delivery Method Nasal Cannula Nasal Cannula Oxygen Flow Rate (L/min) 4 4 08/07/23 14:03 Temperature 99.2 F H Temperature Source Oral Pulse Rate 78 Respiratory Rate 24 H Respiratory Effort Respiratory Depth Respiratory Pattern Blood Pressure 145/67 H Blood Pressure Mean 93 Pulse Ox 94 Oxygen Delivery Method Nasal Cannula Oxygen Flow Rate (L/min) 6 Weight Weight: 78.4 kg Body Mass Index (BMI) 29.6 Physical Exam Narrative General: Alert, oriented HEENT: Atraumatic, normocephalic Eyes: Anicteric, normal conjunctiva, extraocular movements grossly intact Neck: Supple Respiratory: Diminished bilaterally with increased respiratory effort Cardiovascular: Regular rate GI: Soft, nontender, nondistended Extremities: Trace to 1+ edema right lower extremity 1+ left lower extremity which she reports is chronically greater than right Musculoskeletal: Moving all extremities Neuro: No overt focal neurological deficits Skin: No overt rashes appreciated Psych: Very irritable and intermittently explosive Results Lab / Micro Data 08/07/23 11:20 08/07/23 11:20 Labs: Laboratory Results - last 24 hr 08/07/23 11:20: WBC 16.0 H, RBC 3.52 L, Hgb 11.2 L, Hct 35.0 L, MCV 99.4 H, MCH 31.8, MCHC 32.0, RDW Std Deviation 56.1 H, RDW Coeff of Lola 15.6 H, Plt Count 291, MPV 8.9, Immature Gran % (Auto) 0.600, Neut % (Auto) 89.7 H, Lymph % (Auto) 2.6 L, [place] % (Auto) 5.7, Eos % (Auto) 1.0, Baso % (Auto) 0.4, Absolute Neuts (auto) 14.4 H, Absolute Lymphs (auto) 0.41 L, Nucleated RBC % 0, Differential Comment SCANNED, Sodium 138, Potassium 3.2 L, Chloride 97 L, Carbon Dioxide 33.0 H, Anion Gap 8, BUN 16, Creatinine 2.38 H, Estim Creat Clear Calc 20.35, Est GFR (MDRD) Af Amer 26 L, Est GFR (MDRD) Non-Af 22 L, BUN/Creatinine Ratio 6.7 L, Glucose 133 H, Lactic Acid 0.9, Calcium 8.2 L, Total Bilirubin 0.50, AST 15, ALT 17, Alkaline Phosphatase 67, Total Protein 7.3, Albumin 2.5 L, Globulin 4.8 H, Albumin/Globulin Ratio 0.5 L Micro: Microbiology 08/07/23 11:31 Nasal Secretion SARS-CoV-2 & FLU Antigen (Rapid) - Final 08/07/23 11:31 Mucosa - Nasopharyngeal Rapid RSV (DFA) - Final ABG Data ABG results: ABG 08/07/23 12:10 Specimen Type ART Sample Site L Radial pH 7.45 Bicarbonate Actual 31.2 H Total CO2 33 Base Excess 7 H O2 Saturation 89 L O2 % 4.0 ABG pCO2 44.9 ABG pO2 54 L Kit Test Positive O2 Delivery Device Cannula Vent Mode Not entered Rhythm Strip Rhythm Strip: Sinus Rhythm Rate: 80 Imagaing Radiology Impression Chest X-Ray 08/07/23 11:35 IMPRESSION: Mild degree of CHF with large left pleural effusion with the left basilar atelectasis with mild atelectasis at the right lung base. Electronically Signed: Richard Ndiaye MD at 12:34 EST , Chest CTA 08/07/23 12:38 IMPRESSION: Bilateral pleural effusions left greater than right with compressive atelectasis at the lung bases worse on the left side. Small to moderate sized pericardial effusion. 3.9 cm x 3 cm fat-containing mass in the right adrenal gland with calcifications. Unchanged since prior study dated April 18, 2019. Electronically Signed: Richard Ndiaye MD at 13:57 EST , Assessment & Plan Assessment/Plan (1) Acute hypoxemic respiratory failure: (2) Bilateral pleural effusion: (3) ESRD (end stage renal disease): (4) GERD (gastroesophageal reflux disease): (5) HTN (hypertension): PLAN: Plan # Acute hypoxia with increased shortness of breath secondary to bilateral pleural effusions left greater than right -initially 81% on 4 L nasal cannula and became tachypneic with respiratory rate of 28 but this improved to 95% on 4 L nasal cannula and respiratory rate went down to 18, heart rate and blood pressure as well as temperature within normal limits - ABG which showed pO2 of 54 on 4 L nasal cannula -chest x-ray with large left pleural effusion and mild degree of CHF -CTA obtained given her pleuritic chest pain and this with no PE but bilateral pleural effusions left greater than right and small pericardial effusion -Patient still mildly tachypneic and requiring 6 L, will place order for thoracentesis -Order BNP and echo -Unclear if infectious component as patient has had increased cough and elevated white blood cell count, will add CAP coverage and sputum studies and respiratory panels in the event there is an infectious component -Daily weights, I's and O's, incentive spirometry -Mucinex and nebs #Pericardial effusion -Will order echo to better assess #Adrenal mass -3.9 cm x 3 cm fat-containing mass in the right adrenal gland with calcifications. Unchanged since prior study dated April 18, 2019. #End-stage renal disease on HD Sunday, , Sunday -Consult nephrology #PTSD and depression -Continue home medications #GERD -Continue PPI #CAD -Holding Plavix pending thoracentesis, this will need resumed when able, continue other home medications # Hypertension -Continue home medications #DVT ppx: Heparin subcu Raven Wylie MD Charges/Coding Visit Charges Inpatient E&M: 84253 Init Hosp L2
--- NOTE | 2023-08-07 14:33 | ECHOD_ITS ---
Reason For Study: DYSPNEA/SOB Procedure This was a 2D Doppler, Color Flow transthoracic echocardiogram. Exam performed in department. Left Ventricle Normal LV size. The estimated ejection fraction is 60 %. No evidence for diastolic dysfunction. No regional wall motion abnormalities noted. Right Ventricle Normal RV size. Normal systolic function. Atria Normal left atrium. Normal right atrium. No doppler evidence for ASD. Mitral Valve There is moderate to severe mitral annular calcification. There is no mitral valve stenosis. No mitral valve insufficiency. Tricuspid Valve There is no tricuspid stenosis. Unable to estimate RV systolic pressure due to inadequate jet, pulmonary artery pressure probably normal. Aortic Valve Trisinus/trileaflet aortic valve. There is no aortic stenosis. No aortic valve insufficiency. Pulmonic Valve There is no pulmonic valvular stenosis. No pulmonic valve insufficiency. Great Vessels Normal aortic root. Pericardium/Pleural Small pericardial effusion. MMode/2D Measurements & Calculations LVIDd: 4.8 cm IVSd: 1.3 cm Ao root diam: 3.0 cm LVIDs: 3.2 cm LVPWd: 1.1 cm FS: 33.8 % LAV(MOD-bp): 52.9 ml LVAd ap4: 32.4 cm2 SV(MOD-sp4): 74.8 ml LAV(MOD-bp) Indexed: 28.7 ml/m2 LVLd ap4: 7.5 cm LAV(MOD-sp2): 50.1 ml EDV(MOD-sp4): 114.0 ml LAV(MOD-sp4): 53.6 ml EDV(sp4-el): 118.7 ml LVAs ap4: 17.2 cm2 LVLs ap4: 6.4 cm ESV(MOD-sp4): 39.2 ml ESV(sp4-el): 39.2 ml EF(MOD-sp4): 65.6 % EF(sp4-el): 67.0 % SV(sp4-el): 79.5 ml LA A4 area: 20.1 cm2 LA dimension(2D): 3.4 cm RA A4 area: 16.4 cm2 Time Measurements MV dec time: 0.22 sec Doppler Measurements & Calculations MV E max edgardo: 127.0 cm/sec Lat Peak E' Edgardo: 12.7 cm/sec Med Peak E' Edgardo: 7.0 cm/sec MV A max edgardo: 98.8 cm/sec E/E' lat: 10.0 E/E' med: 18.2 MV E/A: 1.3 Ao V2 max: 162.2 cm/sec LV V1 max: 134.9 cm/sec PA V2 max: 108.1 cm/sec Ao max P.5 mmHg LV V1 max P.3 mmHg ECHO/Echo Complete Interpretation Summary The estimated ejection fraction is 60 %. No evidence for diastolic dysfunction. Small pericardial effusion. Ordering Physician: Raven Wylie Referring Physician: YANA JEAN Performed By: Karma Walker, LIZETT
[2023-08-07 15:07] LABS: BNP,B-Type NATRIURETIC PEPTIDE 1114.1 pg/mL (0-100)
[2023-08-07 15:09] LABS: T4 Free Direct 1.02 ng/dL (0.76-1.46)
[2023-08-07] MEDS: Lidocaine 2% (20 ml mdv) 20 ML Vial INFILT (15:10)
--- NOTE | 2023-08-07 15:10 | FLU_PTH ---
PATHOLOGY RESULTS PATIENT: BARI LAUGHLIN LOC: [facility] U#:[id number] AGE/SX: 63/F ROOM: ICU02 RE08/07/[address]: Dr. Aden Larry MD : 1960 BED: 1 DIS: 08/23/2023 SPEC #: [id number] RECD: 08/08/23 07:44 STATUS: SHANNAN RELee #: [id number] ASHLEY: 08/07/23 15:[address]: Ana Luisa Rosa DEPT: CYTOLOGY RECD BY: Roxana Dawkins ENTERED: 08/08/23 07:45 SP TYPE: Fluid OTHR DR: MD Dr. Raven Wilson MD Dr. William Lago, MD Tissues: Pleural fluid, NOS Procedures: Special Stain Group II Surgery Specimen Level IV Cytospin Fluid HEADER OPERATION: Ultrasound-guided thoracentesis PRE-OP DIAGNOSIS: Left pleural effusion TISSUE SUBMITTED: Thoracentesis fluid for cytology DIAGNOSIS CYTOLOGY Thoracentesis fluid for cytology (cytospin and cell block): Negative for malignant cells. See comment. [facility]:wayne 08/09/2023 COMMENT Clinical correlation and appropriate follow up are necessary. CYTOLOGY STUDY Slides are reviewed. CYTOLOGY GROSS Received is 75 ml of yellow cloudy fluid labeled with the patient's name and and designated per the requisition as thoracentesis. Submitted for cytology preparation including cell block. / wayne 08/08/2023 TC:5 CPT: 63269, 01258
--- NOTE | 2023-08-07 15:20 | RAD_ITS ---
STUDY: X-RAY CHEST REASON FOR EXAM: Female, 63 years old. Post thora TECHNIQUE: A PA inspiration and expiration views. COMPARISON: Comparison is made with prior study done earlier today. FINDINGS: The patient status post left thoracentesis. There is no evidence of pneumothorax. RAD/Chest Insp/Exp 2 View IMPRESSION: Status post left thoracentesis. No evidence of pneumothorax. Electronically Signed: Richard Ndiaye MD at 15:38 EST ,
--- NOTE | 2023-08-07 15:26 | PRO.PCM_ITS ---
Procedure Report Date of Procedure: 08/07/23 Assessment & Plan Assessment/Plan (1) Bilateral pleural effusion: PLAN: PROCEDURE: Ultrasound Guided Thoracentesis ORDERING PROVIDER: Dr. Raven Wylie INDICATION: Female, 63 years old. Bilateral pleural effusions. PROVIDER: MARJAN Maldonado PROCEDURE: The risks, benefits, and alternatives to the procedure were explained to the patient. The specific risks of bleeding, infection, and pneumothorax requiring chest tube insertion were discussed and accepted. This patient did verify that her last dose of Plavix was today. Thoracentesis is a very low bleeding risk procedure, and this patient has a HAS-BLED score of 2 for renal failure and Plavix. Per SIR guideline, for a patient with a HAS-BLED score of 2, there is no need to hold antithrombotics paracentesis. Written informed consent was obtained. The patient was placed in the sitting, upright position. Ultrasonographic evaluation of the bilateral lower pleural spaces was carried out. An adequate pocket was identified in the left lower pleural space.The overlying skin was prepped and draped in sterile fashion. 2% lidocaine was administered subcutaneously for local anesthesia. Under ultrasound guidance, a 5-Polish thoracentesis needle/catheter system was advanced into the left posterior lower pleural fluid collection. 1280 ml of clear yellow colored fluid was drained. 100 mL of this fluid was collected and sent to the laboratory for analysis, as per requesting physician. The catheter was removed, and a sterile dressing was applied. The patient tolerated the procedure well. A chest x-ray was ordered. IMPRESSION: Successful ultrasound-guided thoracentesis of left pleural effusion Procedures Radiology Radiology US Procedures: 99652 Thoracentesis
[2023-08-07 15:34] LABS: Cytology, Body Fluid / CSF SEE PATHOLOGY REPORT
[2023-08-07 16:14] LABS: Body Fluid Mononuclear WBC # 0.727 10^3/uL; Body Fluid Mononuclear WBC % 73.5 %; Body Fluid Polynuclear WBC # 0.263 10^3/uL; Body Fluid Polynuclear WBC % 26.5 %; Body Fluid Total Cells Counted 1.029 10^3/ul
[2023-08-07 16:28] LABS: Glucose, Body Fluid 111 mg/dL (40-70); LDH,Body Fluid 242 Units/L (Not Establ.); Protein, Body Fluid 3.6 g/dL (Not Establ.)
[2023-08-07 16:55] LABS: Auto B Fluid Analyzer BKGD Ct COUNTS W/IN LIMITS (W/IN LIMITS)
[2023-08-07 16:56] LABS: Appearance/Body Fluid CLEAR; Color/Body Fluid YELLOW; Source- Body Fluid THORACENTESIS
[2023-08-07 16:57] LABS: Red Cell Count/Body Fluid 45 /mm3
[2023-08-07 17:18] LABS: Lymphocytes 7 %; Neutrophil (Segs) 34 %
[2023-08-07 17:19] LABS: Monocytes 58 %; Other Cell Type/BF 1 %
[2023-08-07 17:29] LABS: Body Fluid QC Type(s) BF1Q
[2023-08-07 19:13] LABS: ALB/GLOB Ratio 0.6 RATIO (0.9-2.4); Globulin 4.6 g/dL (2.2-4.2); LDH 208 U/L (84-246); Protein, Total 7.2 g/dL (6.4-8.2)
[2023-08-07] MEDS: Ceftriaxone 2 GM in 0.9% Normal Saline (50mL MB+) 50 ML IV (20:05)
[2023-08-07] MEDS: Potassium Chloride Oral Tablet 20 MEQ PO (20:09)
[2023-08-07] MEDS: Furosemide 40 MG/4 ML Vial IV (20:39)
[2023-08-07] MEDS: oxyCODONE 5 MG Tablet PO (20:52)
[2023-08-07] MEDS: 0.9% Saline Lock 10 ML Syringe IV (21:03)
[2023-08-07] MEDS: Azithromycin 500 MG in Dextrose 5%-Water (250mL Bag) 250 ML 250 MG IV (21:03)
[2023-08-07] MEDS: Mirtazapine 15 MG Tablet 7.5 MG PO (22:18)
[2023-08-07] MEDS: NIFEdipine 90 MG Tablet PO (22:18)
[2023-08-07] MEDS: guaiFENesin 1,200 MG Tablet 1200 MG PO (22:18)
[2023-08-07] MEDS: Heparin Injection (Vial) 5,000 UNIT/ML VIAL 5000 UNIT SC (22:19)
[2023-08-07] MEDS: Atorvastatin Calcium 80 MG Tablet PO (22:19)
[2023-08-07] MEDS: Carvedilol 25 MG Tablet PO (22:19)
[2023-08-08] VITALS (7 sets, daily range): BP systolic 147–157; BP diastolic 61–66; PULSE 70–76; RESP 16–20; TEMP 36.4–36.8; O2SAT 85–93; BMI 28.0
[2023-08-08 08:07] LABS: Hematocrit 32.3 % (37-47); Hemoglobin 10.4 g/dL (12.0-15.0); Mean Corp Hgb Conc 32.2 g/dL (32-36); Mean Corpuscular Hgb 33.1 pg (27.0-32.0); Mean Corpuscular Volume 102.9 fL (81-99); Mean Platelet Vol. 9.2 fl (6.2-12.0); Platelet Count 260 K/mm3 (150-450); RBC Distribution Width CV 15.9 % (11.6-14.6); RBC Distribution Width SD 59.7 fl (35.1-43.9); Red Blood Count 3.14 M/mm3 (4.2-5.4)
[2023-08-08 08:40] LABS: Anion Gap 7 (5-15); BUN 40 mg/dL (7-18); BUN/Creat Ratio 11.1 RATIO (10-20); Calcium,Total 9.8 mg/dL (8.5-10.1); Chloride 97 mmol/L (98-107); Creatinine, Serum 3.59 mg/dL (0.55-1.02); EST Glomerular Filtration Rate 14 mL/min (>60); Est Glom Filt Rate - Afr Amer 16 mL/min (>60); Estimated Creatinine Clearance 13.49 ml/min; Glucose 159 mg/dL (74-106); Potassium 3.9 mmol/L (3.5-5.1); Sodium Level 135 mmol/L (136-145); Thyroid Stim Hormone (TSH) 1.07 uIU/mL (0.358-3.74)
[2023-08-08] MEDS: Heparin Injection (Vial) 5,000 UNIT/ML VIAL 5000 UNIT SC ×2 (08:51→21:30)
[2023-08-08] MEDS: Aspirin E.C. 81 MG Tablet PO (08:51)
[2023-08-08] MEDS: Carvedilol 25 MG Tablet PO ×2 (08:51→21:29)
[2023-08-08] MEDS: SEVELAMER CARBONATE 800 MG TABLET PO ×3 (08:51→17:14)
[2023-08-08] MEDS: Furosemide 40 MG/4 ML Vial IV ×2 (08:52→17:14)
[2023-08-08] MEDS: Clopidogrel Bisulfate 75 MG Tablet PO (08:53)
[2023-08-08] MEDS: NIFEdipine 90 MG Tablet PO ×2 (08:53→21:30)
[2023-08-08] MEDS: Folic Acid/Vitamin B Comp W-C 1 Capsule 1 CAP PO (08:53)
[2023-08-08] MEDS: guaiFENesin 1,200 MG Tablet 1200 MG PO ×2 (08:53→21:30)
[2023-08-08] MEDS: Sertraline 50 MG Tablet 25 MG PO (08:54)
[2023-08-08] MEDS: Pantoprazole Sodium 40 MG Tablet PO (08:54)
[2023-08-08] MEDS: Cholecalciferol (VIT D3) 25 MCG TABLET (1,000 UNITS) 50 MCG PO (08:54)
[2023-08-08] MEDS: 0.9% Saline Lock 10 ML Syringe IV ×5 (08:55→22:46)
[2023-08-08] MEDS: oxyCODONE 5 MG Tablet PO (09:00)
--- NOTE | 2023-08-08 12:45 | PN_ITS ---
Subjective Subjective Patient seen and examined. SHe was admitted with a complaint of shortness of breath. Imaging done showed a large left pleural effusion with evidence of heart failure. CT of the chest showed bilateral effusions left greater than right with compressive atelectasis mild to moderate pericardial effusion. She had thoracentesis done and is being diuresed with Lasix. She still feels short of breath today though she is status much better. She is wheezing. She denies any chest pain or palpitations, dizziness, nausea or vomiting or any other symptoms. Review of systems otherwise negative. Objective Data Objective Data Vital Signs: Vital Signs Temp Pulse Resp BP Pulse Ox O2 Del Method O2 Flow Rate 98.2 F 72 18 147/66 H 92 Nasal Cannula 6 08/08/23 09:15 08/08/23 09:15 08/08/23 09:15 08/08/23 09:15 08/08/23 09:15 08/08/23 09:15 08/08/23 09:15 Oxygen Flow Rate (L/min) 6 Oxygen Delivery Method Nasal Cannula Weight: 163 lb 2.273 oz Body Mass Index (BMI) 28.0 Intake & Output: Intake and Output for Last 24 Hours 08/06/23 08/07/23 08/08/23 23:59 23:59 23:59 Intake Total 765 / 765 670 / 670 Output Total 1430 / 1430 0 / 0 Balance -665 / -665 670 / 670 Lab / Micro Data 08/08/23 07:30 08/08/23 07:30 Labs: Laboratory Results - last 24 hr 08/07/23 11:20: Lactate Dehydrogenase 208, B-Natriuretic Peptide 1114.1 H, Total Protein 7.2, Globulin 4.6 H, Albumin/Globulin Ratio 0.6 L, Free T4 1.02 08/07/23 15:10: Fluid Source THORACENTESIS, Fluid Color YELLOW, Fluid Appearance CLEAR, Fluid WBC 0.990, Fluid RBC 45, Fluid Tot Cell Count 1.029 H, Fld Polynuclear WBCs # 0.263, Fld Polynuclear WBCs % 26.5, Fluid Mononuclear WBCs 0.727, Fld Mononuclear WBCs % 73.5, Fluid Neutrophils 34, Fluid Lymphocytes 7, Fluid Monocytes 58, Fluid Other Cells 1, Fl Pathologist Comment May follow, Fluid Glucose 111 H, Fluid Total Protein 3.6, Fluid LDH 242, Fluid Comment 2 SEE COMMENT 08/08/23 07:30: WBC 17.0 H, RBC 3.14 L, Hgb 10.4 L, Hct 32.3 L, MCV 102.9 H, MCH 33.1 H, MCHC 32.2, RDW Std Deviation 59.7 H, RDW Coeff of Lola 15.9 H, Plt Count 260, MPV 9.2, Sodium 135 L, Potassium 3.9, Chloride 97 L, Carbon Dioxide 31.0, Anion Gap 7, BUN 40 H, Creatinine 3.59 H, Estim Creat Clear Calc 13.49, Est GFR (MDRD) Af Amer 16 L, Est GFR (MDRD) Non-Af 14 L, BUN/Creatinine Ratio 11.1, Glucose 159 H, Calcium 9.8, TSH 1.07 Micro: Microbiology 08/07/23 15:10 Fluid - Thoracentesis Fluid Gram Stain - Final 08/07/23 21:25 Mucosa - Nasopharyngeal Respiratory Panel (PCR) - Final 08/07/23 11:31 Nasal Secretion SARS-CoV-2 & FLU Antigen (Rapid) - Final 08/07/23 11:31 Mucosa - Nasopharyngeal Rapid RSV (DFA) - Final Radiography Diagnostic Testing: Radiology Impression Chest CTA 08/07/23 12:38 IMPRESSION: Bilateral pleural effusions left greater than right with compressive atelectasis at the lung bases worse on the left side. Small to moderate sized pericardial effusion. 3.9 cm x 3 cm fat-containing mass in the right adrenal gland with calcifications. Unchanged since prior study dated April 18, 2019. Electronically Signed: Richard Ndiaye MD at 13:57 EST , Chest X-Ray 08/07/23 15:20 IMPRESSION: Status post left thoracentesis. No evidence of pneumothorax. Electronically Signed: Richard Ndiaye MD at 15:38 EST , Rhythm Strip Rhythm Strip: Sinus Rhythm Rate: 80 Physical Exam Const alert, oriented x3 and no apparent distress General Appearance: cooperative HEENT normocephalic, head/scalp atraumatic, moist oral mucous membranes and oropharynx normal Eyes PERRL and EOMs intact bilaterally Neck no lymphadenopathy and supple Lymph Lymphatic: no lymphadenopathy noted and no lymphedema noted Resp Resp Narrative: Moderately diminished breath sounds bibasilarly. Lungs sound very tight. Few expiratory crackles. On 6L of oxygen by nasal canula. Cardio regular rate, regular rhythm, S1 normal heart sound, S2 normal heart sound and no murmurs GI normal to inspection, nondistended, normoactive bowel sounds, soft to palpation, non-tender and non-distended Extremity normal capillary refill, no clubbing, cyanosis or edema and no calf tenderness General Extremity: no tenderness to palpation of joints or extremities Skin General Skin Exam: no breakdown and turgor normal Neuro CN's II-XII intact bilaterally, no focal motor deficits, no sensory deficits not ed and deep tendon reflexes 2+ bilaterally Motor Exam: strength 5/5 throughout and general weakness Psych thought process normal, cooperative and affect normal Appearance: appropriate Assessment & Plan Assessment/Plan (1) Bilateral pleural effusion: (2) Acute hypoxemic respiratory failure: (3) Acute pericardial effusion: PLAN: Plan #Acute hypoxic respiratory failure * due to fluid overload and bilateral pleural effusions. * Chest CT showed bilateral effusion, with large effusion on the left. * had thoracentesis yesterday with removal of 1280mls * titrate oxygen to maintain sats >90% * breathing treatment with bronchodilators * 2D echo pending * currently on 6L of oxygen * on IV antibiotics also to cover any possible pneumonia * will add on IV prednisone due o wheezing and patient's long history of smoking * per Light criteria, fluid is a transudative effusion #Acute heart failure of [facility] EF * BNP is 1114. Likely due to heart failure. * 2D echo pending * not being diuresed due ot ESRD state. Should improve with dialysis * # Adrenal mass: Imaging showed a 3.9 x 3 cm right adrenal gland lesion which was a change since previous studies from March 2019. #ESRD: on HD on Sunday, or Sunday. #GERD: on PPI #CAD: plavix held due to thoracentesis. #Hypertension; DVT prophylaxis: heparin Charges/Coding Visit Charges Inpatient E&M: 67193 Subs Hosp L3
[2023-08-08] MEDS: Ipratropium/Albuterol Sulfate 3 ML AMPUL.NEB INHALATION ×2 (12:52→20:22)
--- NOTE | 2023-08-08 13:30 | CASEMGMT ---
JOHAN HAYES Face to Face with patient for initial transition planning/care coordination assessment. RN CM introduced self and role at [facility]. Patient lying in bed, alert and oriented. Patient willing to participate in assessment and is able to answer all questions appropriately. Care providers, pharmacy, and demographics verified. Patient wishes to discharge home, will monitor progress with therapy. Patient states she has no further needs or concerns at this time. CM to follow for discharge planning needs that may arise. PCP: Hernan Specialists: Jacoby Rosenthal, glaze handler; Cindy, cardiologsit; Vascular at [facility] Preferred Pharmacy: [facility] Insurance: [employer] Prescription Benefit: yes Living Will/HPOA: none LNOK: aunt Living Arrangements: Patient lives alone in a first floor apartment with 3 steps and railing to enter the home. Patient is independent at home. Transportation: Self DME/HHC: Patient has cane, rollator, and home oxygen with [employer] with 2lpm. Patient has been to [facility] in the past. Patient has had HHC in the past but could not recall agency Disposition Plan: Patient to discharge home with follow-up plans in place. Will monitor for increase in home oxygen and possible HHC Swathi JENSEN, RN, CM
--- NOTE | 2023-08-08 14:26 | PCM.CONS.R ---
Assessment & Plan Assessment/Plan (1) End-stage renal disease on hemodialysis: (2) Bilateral pleural effusion: (3) Anemia of chronic disease: PLAN: Plan This is a 63-year-old female with past medical history significant for ESRD on hemodialysis Sunday schedule who presented emergency room with complaints of shortness of breath after dialysis. Found to have bilateral pleural effusions and pericardial effusion. Nephrology consulted for hemodialysis needs. There is no acute indication for [facility] today, will plan for dialysis tomorrow over 3.5 hours and attempt fluid removal as patient/blood pressure tolerates. Likely will lower dry weight, outpatient EDW 74.5 kg, this was recently lowered. Patient underwent thoracentesis with 1280 mL fluid removed today and sent. Per patient breathing has improved, she is also receiving breathing treatments, IV steroids and IV antibiotics. Will continue IV Lasix as ordered as patient still has urine output. Echo shows EF 60%, no evidence diastolic dysfunction, normal LV size, small pericardial effusion. Patient has history of anemia of chronic disease and receives SANTINO and iron at dialysis. Will monitor hemoglobin trends. Current blood pressures acceptable, recommend holding carvedilol and Procardia mornings of dialysis. Further orders forthcoming as hospitalization evolves, thank you for allowing us to participate in the care of Ms. Laughlin. HPI Consult Data Date of Consult: 08/08/23 HPI Narrative HPI Narrative: BARI LAUGHLIN, is a 63 F with past medical history significant for ESRD on hemodialysis Sunday who presented to the emergency room yesterday from dialysis center with complaints of worsening shortness of breath after dialysis as well as anxiety. Workup in the emergency room included chest x-ray patient found to have large left pleural effusion, mild degree of CHF; CTA showed bilateral pleural effusions left greater than right, small to moderate pericardial effusion. Patient was admitted for further evaluation and treatment. Nephrology consulted for hemodialysis needs. Patient underwent thoracentesis today and reports breathing has improved. She denies any recent fever chills, nausea, vomiting or diarrhea [facility] Medical History (Updated 08/07/23 @ 18:07 by Bindu Mejias) AAA (abdominal aortic aneurysm) Anxiety Asthma Congestive heart failure (CHF) Coronary artery disease Depression Diabetes Dialysis patient History of high cholesterol Kidney disease Migraines Myocardial infarct On home oxygen therapy PTSD (post-traumatic stress disorder) Sleep apnea Substance abuse Home Medications cholecalciferol (vitamin D3) 25 mcg (1,000 unit) capsule 50 mcg PO DAILY SUPPLEMENT 10/02/21 [History Last Taken 08/07/23] aspirin 81 mg tablet,delayed release 81 mg PO DAILY HEART 11/14/22 [History Last Taken 08/07/23] atorvastatin 80 mg tablet 80 mg PO QHS CHOLESTEROL 11/14/22 [History Last Taken 08/06/23] carvedilol 25 mg tablet 25 mg PO BID HEART 11/14/22 [History Last Taken 08/07/23] clopidogrel 75 mg tablet 75 mg PO DAILY BLOOD THINNER 11/14/22 [History Last Taken 08/07/23] furosemide 80 mg tablet (Lasix) 80 mg PO TUTHSA FLUID 11/14/22 [History Last Taken 08/07/23] mirtazapine 7.5 mg tablet 7.5 mg PO QHS INSOMNIA 11/14/22 [History Last Taken 08/06/23] nitroglycerin 0.4 mg sublingual tablet 0.4 mg sublingual DAILY PRN CHEST PAIN 11/14/22 [History Last Taken Unknown] pantoprazole 40 mg tablet,delayed release 40 mg PO DAILY ACID REFLUX 11/14/22 [History Last Taken 08/07/23] sevelamer carbonate 800 mg tablet 800 mg PO TIDCM PHOSPHATE 11/14/22 [History Last Taken 08/06/23] vitamin B complex-vitamin C-folic acid 0.8 mg tablet (Mojgan-Kirk) 1 tab PO DAILY SUPPLEMENT 11/14/22 [History Last Taken 08/07/23] guaifenesin 600 mg tablet, extended release 12 hr (Mucus Relief ER) 1,200 mg (2 x 600 mg) PO Q12H COUGH #20 tabs 11/16/22 [Rx Last Taken 08/07/23] acetaminophen 325 mg capsule 650 mg PO BID PRN PAIN 08/07/23 [History Last Taken 08/06/23] albuterol sulfate 90 mcg/actuation aerosol inhaler (Ventolin HFA) 1 puff inhalation Q4H PRN WHEEZING 08/07/23 [History Last Taken Unknown] furosemide 80 mg tablet 80 mg PO BID FLUID 08/07/23 [History Last Taken 08/06/23] nifedipine 90 mg tablet,extended release 24 hr 90 mg PO BID BLOOD PRESSURE 08/07/23 [History Last Taken 08/07/23] sertraline 25 mg tablet 25 mg PO DAILY DEPRESSION 08/07/23 [History Last Taken 08/07/23] Allergy/AdvReac Type Severity Reaction Status Date / Time Latex, Natural Rubber Allergy Rash Verified 06/21/23 11:28 Penicillins Allergy Rash Verified 06/21/23 11:28 Family History Other CAD (coronary artery disease) Heart disease Surgical History H/O tubal ligation History of arteriovenostomy for renal dialysis History of section, classical History of colectomy History of coronary artery stent placement History of ligation of vein History of total hysterectomy Hx of umbilical hernia repair Social History (Updated 08/07/23 @ 11:[address] Torsten Velasquez MD) household members: none Smoking Status: Current every day smoker tobacco type: cigarettes substance use type: does not use ROS ROS Narrative As in HPI and past medical history Physical Exam Narrative Alert orient x 3, no apparent distress S1, S2, RRR Diminished breath sounds, no rhonchi or rales Abdomen soft, nontender No pitting edema Left chest tunneled HD catheter dressing clean, dry and intact Right upper arm AV fistula positive thrill and bruit Lab / Micro Data 08/08/23 07:30 08/08/23 07:30 Labs: Laboratory Results - last 24 hr 08/07/23 11:20: Lactate Dehydrogenase 208, B-Natriuretic Peptide 1114.1 H, Total Protein 7.2, Globulin 4.6 H, Albumin/Globulin Ratio 0.6 L, Free T4 1.02 08/07/23 15:10: Fluid Source THORACENTESIS, Fluid Color YELLOW, Fluid Appearance CLEAR, Fluid WBC 0.990, Fluid RBC 45, Fluid Tot Cell Count 1.029 H, Fld Polynuclear WBCs # 0.263, Fld Polynuclear WBCs % 26.5, Fluid Mononuclear WBCs 0.727, Fld Mononuclear WBCs % 73.5, Fluid Neutrophils 34, Fluid Lymphocytes 7, Fluid Monocytes 58, Fluid Other Cells 1, Fl Pathologist Comment May follow, Fluid Glucose 111 H, Fluid Total Protein 3.6, Fluid LDH 242, Fluid Comment 2 SEE COMMENT 08/08/23 07:30: WBC 17.0 H, RBC 3.14 L, Hgb 10.4 L, Hct 32.3 L, MCV 102.9 H, MCH 33.1 H, MCHC 32.2, RDW Std Deviation 59.7 H, RDW Coeff of Lola 15.9 H, Plt Count 260, MPV 9.2, Sodium 135 L, Potassium 3.9, Chloride 97 L, Carbon Dioxide 31.0, Anion Gap 7, BUN 40 H, Creatinine 3.59 H, Estim Creat Clear Calc 13.49, Est GFR (MDRD) Af Amer 16 L, Est GFR (MDRD) Non-Af 14 L, BUN/Creatinine Ratio 11.1, Glucose 159 H, Calcium 9.8, TSH 1.07 Micro: Microbiology 08/07/23 15:10 Fluid - Thoracentesis Fluid Gram Stain - Final 08/07/23 21:25 Mucosa - Nasopharyngeal Respiratory Panel (PCR) - Final 08/07/23 11:31 Nasal Secretion SARS-CoV-2 & FLU Antigen (Rapid) - Final 08/07/23 11:31 Mucosa - Nasopharyngeal Rapid RSV (DFA) - Final Rhythm Strip Rhythm Strip: Sinus Rhythm Rate: 80 Imagaing Radiology Impression Echocardiogram 08/07/23 14:33 Interpretation Summary The estimated ejection fraction is 60 %. No evidence for diastolic dysfunction. Small pericardial effusion. Ordering Physician: Raven Wylie Referring Physician: YANA JEAN Performed By: Karma Walker, RDCS Chest X-Ray 08/07/23 15:20 IMPRESSION: Status post left thoracentesis. No evidence of pneumothorax. Electronically Signed: Richard Ndiaye MD at 15:38 EST ,
[2023-08-08] MEDS: Ceftriaxone 2 GM in 0.9% Normal Saline (50mL MB+) 50 ML IV (21:25)
[2023-08-08] MEDS: Atorvastatin Calcium 80 MG Tablet PO (21:30)
[2023-08-08] MEDS: Mirtazapine 15 MG Tablet 7.5 MG PO (21:31)
[2023-08-08] MEDS: Azithromycin 500 MG in Dextrose 5%-Water (250mL Bag) 250 ML 250 MG IV (22:25)
[2023-08-08] MEDS: HYDROmorphone Inj 0.2 MG/ML SYRINGE 0.200000000000000011 MG IV (22:45)
[2023-08-09] VITALS (14 sets, daily range): BP systolic 147–197; BP diastolic 61–98; PULSE 66–80; RESP 17–20; TEMP 36.6–36.8; O2SAT 86–96; BMI 28.8; BMI 29.5; BMI 29.3
[2023-08-09] MEDS: 0.9% Saline Lock 10 ML Syringe IV ×4 (05:53→22:12)
[2023-08-09] MEDS: Ipratropium/Albuterol Sulfate 3 ML AMPUL.NEB INHALATION ×2 (07:28→19:15)
[2023-08-09 07:55] LABS: Absolute Lymphocyte Count 0.44 X10^3/uL (0.83-4.51); Basophil# 0.05 X10^3/uL; Basophil% 0.3 % (0-1); Eosinophil# 0.03 X10^3/uL; Eosinophils% 0.2 % (0-5); Hematocrit 31.6 % (37-47); Hemoglobin 9.9 g/dL (12.0-15.0); Lymphocyte # 0.44 X10^3/ul (0.83-4.51); Lymphocyte % 2.6 % (19-41); Mean Corp Hgb Conc 31.3 g/dL (32-36); Mean Corpuscular Hgb 31.7 pg (27.0-32.0); Mean Corpuscular Volume 101.3 fL (81-99); Mean Platelet Vol. 9.3 fl (6.2-12.0); Monocyte% 2.3 % (0-10); NRBC Flagged by Analyzer 0 % (0-5); Neutrophil # 16.04 X10^3/uL (2.7-7.7); Neutrophil % 93.1 % (47-70); POSITIVE DIFFERENTIAL YES; Platelet Count 268 K/mm3 (150-450); RBC Distribution Width CV 15.1 % (11.6-14.6); RBC Distribution Width SD 55.5 fl (35.1-43.9); Red Blood Count 3.12 M/mm3 (4.2-5.4); White Blood Count 17.2 K/mm3 (4.4-11.0)
[2023-08-09 08:06] LABS: Differential Indicated SCAN CRITERIA MET
[2023-08-09 08:30] LABS: Pathologist Comment/Body Fluid Reviewed
[2023-08-09 08:32] LABS: Differential Comment SCANNED
[2023-08-09] MEDS: PureFlow B 2K Dialysis Soln 1 BAG 6 BAG PF (08:41)
[2023-08-09] MEDS: 0.9% Normal Saline 1,000 ML IV.SOLN. 1000 ML OPERA.SITE (08:41)
[2023-08-09] MEDS: Aspirin E.C. 81 MG Tablet PO (09:21)
[2023-08-09] MEDS: SEVELAMER CARBONATE 800 MG TABLET PO ×3 (09:21→17:47)
[2023-08-09 10:34] LABS: Anion Gap 12 (5-15); BUN 53 mg/dL (7-18); BUN/Creat Ratio 12.6 RATIO (10-20); Calcium,Total 8.9 mg/dL (8.5-10.1); Chloride 98 mmol/L (98-107); Creatinine, Serum 4.21 mg/dL (0.55-1.02); EST Glomerular Filtration Rate 11 mL/min (>60); Est Glom Filt Rate - Afr Amer 14 mL/min (>60); Glucose 130 mg/dL (74-106); Potassium 4.3 mmol/L (3.5-5.1); Sodium Level 136 mmol/L (136-145)
--- NOTE | 2023-08-09 11:54 | PCM.PN.REN ---
Subjective Subjective Resting in bed. Seen and examined on dialysis. No overnight events. Reports has been having some anxiety. Objective Data Objective Data Vital Signs: Vital Signs Temp Pulse Resp BP Pulse Ox O2 Del Method O2 Flow Rate 97.9 F 80 18 149/98 H 86 High Flow 9 08/09/23 09:20 08/09/23 11:25 08/09/23 11:25 08/09/23 11:25 08/09/23 11:25 08/09/23 11:25 08/09/23 11:25 Oxygen Flow Rate (L/min) 9 Oxygen Delivery Method High Flow Weight: 78.109 kg Body Mass Index (BMI) 29.5 Intake & Output: Intake and Output for Last 24 Hours 08/07/23 08/08/23 08/09/23 23:59 23:59 23:59 Intake Total 765 / 765 1785 / 1785 0 / 0 Output Total 1430 / 1430 0 / 0 200 / 200 Balance -665 / -665 1785 / 1785 -200 / -200 Lab / Micro Data 08/09/23 07:30 08/09/23 07:30 Labs: Laboratory Results - last 24 hr 08/07/23 15:10: Fl Pathologist Comment Reviewed 08/09/23 07:30: WBC 17.2 H, RBC 3.12 L, Hgb 9.9 L, Hct 31.6 L, MCV 101.3 H, MCH 31.7, MCHC 31.3 L, RDW Std Deviation 55.5 H, RDW Coeff of Lola 15.1 H, Plt Count 268, MPV 9.3, Immature Gran % (Auto) 1.500 H, Neut % (Auto) 93.1 H, Lymph % (Auto) 2.6 L, [place] % (Auto) 2.3, Eos % (Auto) 0.2, Baso % (Auto) 0.3, Absolute Neuts (auto) 16.0 H, Absolute Lymphs (auto) 0.44 L, Nucleated RBC % 0, Differential Comment SCANNED, Sodium 136, Potassium 4.3, Chloride 98, Carbon Dioxide 26.0, Anion Gap 12, BUN 53 H, Creatinine 4.21 H, Estim Creat Clear Calc 11.50, Est GFR (MDRD) Af Amer 14 L, Est GFR (MDRD) Non-Af 11 L, BUN/Creatinine Ratio 12.6, Glucose 130 H, Calcium 8.9 Micro: Microbiology 08/09/23 04:59 Urine, Clean Catch Streptococcus pneumoniae Antigen (M - Final 08/09/23 04:59 Urine, Clean Catch Legionella Antigen - Final 08/08/23 10:17 Sputum, Expectorated/Coughed Gram Stain - Final 08/07/23 15:10 Fluid - Thoracentesis Fluid Gram Stain - Final 08/07/23 21:25 Mucosa - Nasopharyngeal Respiratory Panel (PCR) - Final 08/07/23 11:31 Nasal Secretion SARS-CoV-2 & FLU Antigen (Rapid) - Final 08/07/23 11:31 Mucosa - Nasopharyngeal Rapid RSV (DFA) - Final Radiography Diagnostic Testing: Radiology Impression Echocardiogram 08/07/23 14:33 Interpretation Summary The estimated ejection fraction is 60 %. No evidence for diastolic dysfunction. Small pericardial effusion. Ordering Physician: Raven Wylie Referring Physician: YANA JEAN Performed By: Karma Walker RDCS Rhythm Strip Rhythm Strip: Sinus Rhythm Rate: 80 Physical Exam Narrative Alert orient x 3, no apparent distress S1, S2, RRR Diminished breath sounds, no rhonchi or rales Abdomen soft, nontender No pitting edema Left chest tunneled HD catheter dressing clean, dry and intact; accessed for hemodialysis Right upper arm AV fistula positive thrill and bruit Assessment & Plan Assessment/Plan (1) End-stage renal disease on hemodialysis: (2) Bilateral pleural effusion: (3) Anemia of chronic disease: PLAN: Plan - ESRD on hemodialysis Sunday schedule; undergoing hemodialysis today with around 2 L fluid removal. Will evaluate for dialysis needs tomorrow. Outpatient EDW was 74.5 kg. Weight this morning 78 kg. Likely will have new lowered dry weight by time of hospital discharge - bilateral pleural effusions and pericardial effusion. s/p thoracentesis with 1280 mL fluid removed and fluid sent. Per patient breathing has improved, she is also receiving breathing treatments, IV steroids and IV antibiotics. Will continue IV Lasix as ordered as patient still has urine output. Echo shows EF 60%, no evidence diastolic dysfunction, normal LV size, small pericardial effusion. Patient also has history of anxiety which may cause difficulty breathing at times for patient. - history of anemia of chronic disease and receives SANTINO and iron at dialysis. Will monitor hemoglobin trends. - Current blood pressures acceptable, recommend holding carvedilol and Procardia mornings of dialysis.
[2023-08-09] MEDS: Heparin 10,000 UNITS/10 ML Vial IV (11:56)
[2023-08-09] MEDS: oxyCODONE 5 MG Tablet PO (12:27)
[2023-08-09] MEDS: Sertraline 50 MG Tablet 25 MG PO (12:27)
[2023-08-09] MEDS: Cholecalciferol (VIT D3) 25 MCG TABLET (1,000 UNITS) 50 MCG PO (12:28)
[2023-08-09] MEDS: guaiFENesin 1,200 MG Tablet 1200 MG PO ×2 (12:29→21:38)
[2023-08-09] MEDS: Folic Acid/Vitamin B Comp W-C 1 Capsule 1 CAP PO (12:29)
[2023-08-09] MEDS: Clopidogrel Bisulfate 75 MG Tablet PO (12:29)
[2023-08-09] MEDS: NIFEdipine 90 MG Tablet PO ×2 (12:29→21:38)
[2023-08-09] MEDS: Carvedilol 25 MG Tablet PO ×2 (12:29→21:37)
[2023-08-09] MEDS: Pantoprazole Sodium 40 MG Tablet PO (12:29)
[2023-08-09] MEDS: Heparin Injection (Vial) 5,000 UNIT/ML VIAL 5000 UNIT SC ×2 (12:30→21:38)
[2023-08-09] MEDS: Furosemide 40 MG/4 ML Vial IV ×2 (12:30→17:47)
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
[2023-08-09] MEDS: Senna/Docusate Sodium 1 Tablet 2 TABLET PO (14:37)
[2023-08-09] MEDS: Ceftriaxone 2 GM in 0.9% Normal Saline (50mL MB+) 50 ML IV (21:36)
[2023-08-09] MEDS: Azithromycin 500 MG in Dextrose 5%-Water (250mL Bag) 250 ML 250 MG IV (21:36)
[2023-08-09] MEDS: Mirtazapine 15 MG Tablet 7.5 MG PO (21:37)
[2023-08-09] MEDS: Atorvastatin Calcium 80 MG Tablet PO (21:38)
[2023-08-10] VITALS (10 sets, daily range): BP systolic 170–183; BP diastolic 66–68; PULSE 67–84; RESP 16–20; TEMP 36.5–36.7; O2SAT 85–94; BMI 29.3
[2023-08-10] MEDS: 0.9% Saline Lock 10 ML Syringe IV ×4 (06:20→21:46)
[2023-08-10] MEDS: Ipratropium/Albuterol Sulfate 3 ML AMPUL.NEB INHALATION ×3 (07:19→19:55)
[2023-08-10 07:45] LABS: Absolute Lymphocyte Count 0.77 X10^3/uL (0.83-4.51); Absolute Neutrophil Count 15.5 X10^3/uL (2.0-7.7); Basophil# 0.04 X10^3/uL; Basophil% 0.2 % (0-1); Eosinophil# 0.08 X10^3/uL; Eosinophils% 0.5 % (0-5); Hematocrit 31.3 % (37-47); Hemoglobin 9.8 g/dL (12.0-15.0); Lymphocyte # 0.77 X10^3/ul (0.83-4.51); Lymphocyte % 4.4 % (19-41); Mean Corp Hgb Conc 31.3 g/dL (32-36); Mean Corpuscular Hgb 31.6 pg (27.0-32.0); Mean Platelet Vol. 9.1 fl (6.2-12.0); Monocyte# 0.66 X10^3/uL; Monocyte% 3.8 % (0-10); NRBC Flagged by Analyzer 0 % (0-5); Neutrophil # 15.53 X10^3/uL (2.7-7.7); Neutrophil % 89.2 % (47-70); Platelet Count 275 K/mm3 (150-450); RBC Distribution Width CV 15.1 % (11.6-14.6); RBC Distribution Width SD 56.3 fl (35.1-43.9); White Blood Count 17.4 K/mm3 (4.4-11.0)
[2023-08-10 08:04] LABS: Anion Gap 8 (5-15); BUN 47 mg/dL (7-18); BUN/Creat Ratio 13.9 RATIO (10-20); Calcium,Total 9.3 mg/dL (8.5-10.1); Chloride 98 mmol/L (98-107); Creatinine, Serum 3.39 mg/dL (0.55-1.02); EST Glomerular Filtration Rate 14 mL/min (>60); Est Glom Filt Rate - Afr Amer 18 mL/min (>60); Estimated Creatinine Clearance 14.29 ml/min; Glucose 96 mg/dL (74-106); Potassium 4.1 mmol/L (3.5-5.1); Sodium Level 135 mmol/L (136-145)
[2023-08-10] MEDS: NIFEdipine 90 MG Tablet PO ×2 (08:32→22:51)
[2023-08-10] MEDS: Carvedilol 25 MG Tablet PO ×2 (08:32→22:51)
[2023-08-10] MEDS: Pantoprazole Sodium 40 MG Tablet PO (08:32)
[2023-08-10] MEDS: Clopidogrel Bisulfate 75 MG Tablet PO (08:32)
[2023-08-10] MEDS: SEVELAMER CARBONATE 800 MG TABLET PO ×3 (08:32→17:45)
[2023-08-10] MEDS: Cholecalciferol (VIT D3) 25 MCG TABLET (1,000 UNITS) 50 MCG PO (08:32)
[2023-08-10] MEDS: Aspirin E.C. 81 MG Tablet PO (08:32)
[2023-08-10] MEDS: Furosemide 40 MG/4 ML Vial IV ×2 (08:33→17:45)
[2023-08-10] MEDS: guaiFENesin 1,200 MG Tablet 1200 MG PO ×2 (08:33→22:51)
[2023-08-10] MEDS: Heparin Injection (Vial) 5,000 UNIT/ML VIAL 5000 UNIT SC ×2 (08:33→21:45)
[2023-08-10] MEDS: Sertraline 50 MG Tablet 25 MG PO (08:34)
[2023-08-10] MEDS: Folic Acid/Vitamin B Comp W-C 1 Capsule 1 CAP PO (08:34)
[2023-08-10] MEDS: Acetaminophen 325 MG Tablet 650 MG PO (08:38)
[2023-08-10] MEDS: Senna/Docusate Sodium 1 Tablet 2 TABLET PO (08:38)
--- NOTE | 2023-08-10 10:40 | PCM.PN.REN ---
Subjective Subjective Sitting up in bed. Reports feeling better overall today. Reports breathing has improved. Denies any shortness of breath at rest. Objective Data Objective Data Vital Signs: Vital Signs Temp Pulse Resp BP Pulse Ox O2 Del Method O2 Flow Rate 97.7 F L 73 18 183/66 H 94 High Flow 7 08/10/23 08:51 08/10/23 08:51 08/10/23 08:51 08/10/23 08:51 08/10/23 08:51 08/10/23 08:51 08/10/23 08:51 Oxygen Flow Rate (L/min) 7 Oxygen Delivery Method High Flow Weight: 77.56 kg Body Mass Index (BMI) 29.3 Intake & Output: Intake and Output for Last 24 Hours 08/08/23 08/09/23 08/10/23 23:59 23:59 23:59 Intake Total 1785 / 1785 705 / 725 Output Total 0 / 0 2240 / 2240 0 / 0 Balance 1785 / 1785 -1535 / -1515 Lab / Micro Data 08/10/23 07:15 08/10/23 07:15 Labs: Laboratory Results - last 24 hr 08/10/23 07:15: WBC 17.4 H, RBC 3.10 L, Hgb 9.8 L, Hct 31.3 L, MCV 101.0 H, MCH 31.6, MCHC 31.3 L, RDW Std Deviation 56.3 H, RDW Coeff of Lola 15.1 H, Plt Count 275, MPV 9.1, Immature Gran % (Auto) 1.900 H, Neut % (Auto) 89.2 H, Lymph % (Auto) 4.4 L, [place] % (Auto) 3.8, Eos % (Auto) 0.5, Baso % (Auto) 0.2, Absolute Neuts (auto) 15.5 H, Absolute Lymphs (auto) 0.77 L, Nucleated RBC % 0, Sodium 135 L, Potassium 4.1, Chloride 98, Carbon Dioxide 29.0, Anion Gap 8, BUN 47 H, Creatinine 3.39 H, Estim Creat Clear Calc 14.29, Est GFR (MDRD) Af Amer 18 L, Est GFR (MDRD) Non-Af 14 L, BUN/Creatinine Ratio 13.9, Glucose 96, Calcium 9.3 Micro: Microbiology 08/08/23 10:17 Sputum, Expectorated/Coughed Gram Stain - Final 08/08/23 10:17 Sputum, Expectorated/Coughed Respiratory Culture - Final Presumptive C albicans 08/07/23 15:10 Fluid - Thoracentesis Fluid Gram Stain - Final 08/07/23 15:10 Fluid - Thoracentesis Fluid Body Fluid Culture - Final No growth aerobically. 08/09/23 04:59 Urine, Clean Catch Streptococcus pneumoniae Antigen (M - Final 08/09/23 04:59 Urine, Clean Catch Legionella Antigen - Final 08/07/23 21:25 Mucosa - Nasopharyngeal Respiratory Panel (PCR) - Final 08/07/23 11:31 Nasal Secretion SARS-CoV-2 & FLU Antigen (Rapid) - Final 08/07/23 11:31 Mucosa - Nasopharyngeal Rapid RSV (DFA) - Final Rhythm Strip Rhythm Strip: Sinus Rhythm Rate: 80 Physical Exam Narrative Alert orient x 3, no apparent distress S1, S2, RRR Diminished breath sounds, no rhonchi or rales Abdomen soft, nontender No pitting edema Left chest tunneled HD catheter dressing clean, dry and intact Right upper arm AV fistula positive thrill and bruit Assessment & Plan Assessment/Plan (1) End-stage renal disease on hemodialysis: (2) Bilateral pleural effusion: (3) Anemia of chronic disease: PLAN: Plan - ESRD on hemodialysis Sunday schedule; patient underwent hemodialysis yesterday with around 2 L fluid removal. No acute indication for [employer]OR OF MEDICAL SERVICES today. Will plan for dialysis tomorrow over at least 3.5hrs with around 3 L fluid removal as patient/blood pressure tolerates. Will obtain chest x-ray tomorrow morning predialysis. Outpatient EDW was 74.5 kg. Weight predialysis yesterday 78 kg. Likely will have new lowered dry weight by time of hospital discharge - bilateral pleural effusions (L > R) and pericardial effusion. s/p left thoracentesis with 1280 mL fluid removed and fluid sent. Per patient breathing has improved, she is also receiving breathing treatments, IV steroids and IV antibiotics. Will continue IV Lasix as ordered as patient still has urine output. Echo shows EF 60%, no evidence diastolic dysfunction, normal LV size, small pericardial effusion. Patient also has history of anxiety which may cause difficulty breathing at times for patient. - history of anemia of chronic disease and receives SANTINO and iron at dialysis. Will monitor hemoglobin trends. - Current blood pressures acceptable, recommend holding carvedilol and Procardia mornings of dialysis.
--- NOTE | 2023-08-10 11:01 | PN_ITS ---
Subjective Subjective Patient seen and examined. She had no active complaints today. She is still has wheezing, but no nausea, vomiting. She is still feels short of breath. She is now on 7L of oxygen. Review of systems is otherwise negative. Objective Data Objective Data Vital Signs: Vital Signs Temp Pulse Resp BP Pulse Ox O2 Del Method O2 Flow Rate 97.7 F L 73 18 183/66 H 94 High Flow 7 08/10/23 08:51 08/10/23 08:51 08/10/23 08:51 08/10/23 08:51 08/10/23 08:51 08/10/23 08:51 08/10/23 08:51 Oxygen Flow Rate (L/min) 7 Oxygen Delivery Method High Flow Weight: 170 lb 15.848 oz Body Mass Index (BMI) 29.3 Intake & Output: Intake and Output for Last 24 Hours 08/08/23 08/09/23 08/10/23 23:59 23:59 23:59 Intake Total 1785 / 1785 705 / 725 Output Total 0 / 0 2240 / 2240 0 / 0 Balance 1785 / 1785 -1535 / -1515 Lab / Micro Data 08/10/23 07:15 08/10/23 07:15 Labs: Laboratory Results - last 24 hr 08/10/23 07:15: WBC 17.4 H, RBC 3.10 L, Hgb 9.8 L, Hct 31.3 L, MCV 101.0 H, MCH 31.6, MCHC 31.3 L, RDW Std Deviation 56.3 H, RDW Coeff of Lola 15.1 H, Plt Count 275, MPV 9.1, Immature Gran % (Auto) 1.900 H, Neut % (Auto) 89.2 H, Lymph % (Auto) 4.4 L, [place] % (Auto) 3.8, Eos % (Auto) 0.5, Baso % (Auto) 0.2, Absolute Neuts (auto) 15.5 H, Absolute Lymphs (auto) 0.77 L, Nucleated RBC % 0, Sodium 135 L, Potassium 4.1, Chloride 98, Carbon Dioxide 29.0, Anion Gap 8, BUN 47 H, Creatinine 3.39 H, Estim Creat Clear Calc 14.29, Est GFR (MDRD) Af Amer 18 L, Est GFR (MDRD) Non-Af 14 L, BUN/Creatinine Ratio 13.9, Glucose 96, Calcium 9.3 Micro: Microbiology 08/07/23 15:10 Fluid - Thoracentesis Fluid Gram Stain - Final 08/07/23 15:10 Fluid - Thoracentesis Fluid Body Fluid Culture - Final No growth aerobically. 08/07/23 15:10 Fluid - Thoracentesis Fluid Anaerobic Culture - Preliminary No growth in 48 hours. 08/08/23 10:17 Sputum, Expectorated/Coughed Gram Stain - Final 08/08/23 10:17 Sputum, Expectorated/Coughed Respiratory Culture - Final Presumptive C albicans 08/09/23 04:59 Urine, Clean Catch Streptococcus pneumoniae Antigen (M - Fi nal 08/09/23 04:59 Urine, Clean Catch Legionella Antigen - Final 08/07/23 21:25 Mucosa - Nasopharyngeal Respiratory Panel (PCR) - Final 08/07/23 11:31 Nasal Secretion SARS-CoV-2 & FLU Antigen (Rapid) - Final 08/07/23 11:31 Mucosa - Nasopharyngeal Rapid RSV (DFA) - Final Rhythm Strip Rhythm Strip: Sinus Rhythm Rate: 80 Physical Exam Const alert, oriented x3 and no apparent distress General Appearance: cooperative HEENT normocephalic, head/scalp atraumatic, moist oral mucous membranes and oropharynx normal Eyes PERRL and EOMs intact bilaterally Neck no lymphadenopathy and supple Lymph Lymphatic: no lymphadenopathy noted and no lymphedema noted Resp Resp Narrative: moderately diminished breath sounds bibasally, mild bilateral wheezing, no crackles. On 7L of oxygen by nasal canula. Cardio regular rate, regular rhythm, S1 normal heart sound, S2 normal heart sound and no murmurs GI normal to inspection, nondistended, normoactive bowel sounds, soft to palpation, non-tender and non-distended Extremity normal capillary refill, no clubbing, cyanosis or edema and no calf tenderness General Extremity: no tenderness to palpation of joints or extremities Skin General Skin Exam: no breakdown and turgor normal Neuro CN's II-XII intact bilaterally, no focal motor deficits, no sensory deficits noted and deep tendon reflexes 2+ bilaterally Motor Exam: strength 5/5 throughout and general weakness Psych thought process normal, cooperative and affect normal Appearance: appropriate Assessment & Plan Assessment/Plan (1) Bilateral pleural effusion: (2) Acute hypoxemic respiratory failure: (3) Acute pericardial effusion: PLAN: Plan #Acute hypoxic respiratory failure * due to fluid overload and bilateral pleural effusions as well as probable COPD exacerbation * Chest CT showed bilateral effusion, with large effusion on the left. * had thoracentesis on admission with removal of 1280mls * titrate oxygen to maintain sats >90% * breathing treatment with bronchodilators * 2D echo showed EF of 60% with no evidence of diastolic dysfunction and no regional wall motion abnormalities noted. Small pericardial effusion. * Now up to 7L of oxygen. * On ceftriaxone and azithromycin * will add on IV prednisone due of wheezing and patient's long history of smoking * per Light criteria, fluid is a transudative effusion * will repeat CXR today as she is still shorgt of breath #Acute heart failure with preserved EF * BNP is 1114. Likely due to heart failure. * 2D echo as above * not being diuresed due ot ESRD state. Should improve with dialysis * #Probable COPD exacerbation: * Patient has a long history of smoking. Also wheezing. * on IV solumedrol * Titrate oxygen to maintain saturation above 90%. Breathing treatments with bronchodilators. 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 #ESRD: on HD on Sunday, and Sunday. Nephrology on board. On sevelamer #GERD: on PPI #CAD: plavix held due to thoracentesis. DVT prophylaxis: heparin Charges/Coding Visit Charges Inpatient E&M: 30694 Subs Hosp L2
[2023-08-10] MEDS: oxyCODONE 5 MG Tablet PO ×2 (11:58→22:51)
--- NOTE | 2023-08-10 14:52 | RAD_ITS ---
STUDY: X-RAY CHEST REASON FOR EXAM: Female, 63 years old. shortness of breath TECHNIQUE: PA and lateral views of the chest. COMPARISON: 08/07/2023 FINDINGS: Tunneled left internal jugular dialysis catheter which is unchanged. The lungs are clear and expanded. Enlarging bilateral moderate pleural effusions with bibasilar atelectasis. There is moderate cardiac enlargement. Normal mediastinum and mackenzie. There is prominence of the pulmonary hilar arteries and peripheral pulmonary arteries, consistent with congestive heart failure (CHF). Normal visualized aortic arch and descending thoracic aorta. Normal visualized thoracic spine. Normal visualized ribs, clavicles, and shoulders. There is no demonstrated abnormality of the visualized soft tissue structures of the upper abdomen. RAD/Chest PA and Lateral IMPRESSION: Volume overload with enlarging moderate bilateral pleural effusions. Electronically Signed: Ced Beebe MD at 17:13 EST ,
--- NOTE | 2023-08-10 15:45 | CASEMGMT ---
Per nursing admission questions patient does not have a Healthcare Power of Carpet Technician or Healthcare Living Will and is not interested in documents. Naty Lei [employer]
[2023-08-10] MEDS: Azithromycin 500 MG in Dextrose 5%-Water (250mL Bag) 250 ML 250 MG IV (21:45)
[2023-08-10] MEDS: Ceftriaxone 2 GM in 0.9% Normal Saline (50mL MB+) 50 ML IV (21:45)
[2023-08-10] MEDS: Ondansetron 4 MG/2 ML Vial IV (21:46)
[2023-08-10] MEDS: Mirtazapine 15 MG Tablet 7.5 MG PO (22:50)
[2023-08-10] MEDS: Atorvastatin Calcium 80 MG Tablet PO (22:51)
[2023-08-11] VITALS (33 sets, daily range): BP systolic 110–257; BP diastolic 37–173; PULSE 54–89; RESP 12–23; TEMP 36.4–37.1; O2SAT 85–100; BMI 29.4; BMI 28.3
--- NOTE | 2023-08-11 00:13 | NURSING ---
Patient appeared to be SOB at 0000 when this nurse entered room. SpO2 assessed and while on 6L NC oxygen saturation 87%. Patient sat up and flow rate increased to 9 without much improvement. When flow rate increased to 13, oxygen saturation increased to 91%. Respiratory contacted and airvo to be initiated.
--- NOTE | 2023-08-11 00:17 | PCM.HOSP.N ---
Hospitalist Note Patient with worsening respiratory status, increased oxygen needs, will trial airvo but given review of chart suspect will need BIPAP given overload concurrently.
--- NOTE | 2023-08-11 00:20 | CPS ---
Pt did not tolerate AIRVO at all. Switched pt to bipap 15/10 65% spo2 93%
[2023-08-11] MEDS: Ipratropium/Albuterol Sulfate 3 ML AMPUL.NEB INHALATION ×4 (03:02→19:17)
--- NOTE | 2023-08-11 07:00 | RAD_ITS ---
EXAM: XR CHEST, 2 VIEWS CLINICAL INDICATION: shortness of breath TECHNIQUE: Frontal and lateral views of the chest. COMPARISON: 08/10/2023. FINDINGS: LUNGS AND PLEURAL SPACES: Bilateral pleural effusions and opacities in the lower lungs bilaterally that may be due to atelectasis and/or edema similar to the prior exam. No pneumothorax. HEART: Stable cardiomegaly. MEDIASTINUM: Central airways and mediastinal contour are unremarkable. BONES/JOINTS: Unremarkable. No acute fracture. SOFT TISSUES: Unremarkable. TUBES, LINES AND DEVICES: No change dialysis catheter. RAD/Chest PA and Lateral IMPRESSION: 1. Bilateral pleural effusions and opacities in the lower lungs bilaterally that may be due to atelectasis and/or edema similar to the prior exam. 2. Stable cardiomegaly. 3. No change dialysis catheter. Electronically Signed: Jason Guillen MD at 5:36 EST ,
[2023-08-11 07:05] LABS: Absolute Lymphocyte Count 0.86 X10^3/uL (0.83-4.51); Absolute Neutrophil Count 13.6 X10^3/uL (2.0-7.7); Basophil# 0.06 X10^3/uL; Basophil% 0.4 % (0-1); Eosinophil# 0.05 X10^3/uL; Eosinophils% 0.3 % (0-5); Hematocrit 31.2 % (37-47); Hemoglobin 9.7 g/dL (12.0-15.0); Lymphocyte # 0.86 X10^3/ul (0.83-4.51); Lymphocyte % 5.5 % (19-41); Mean Corp Hgb Conc 31.1 g/dL (32-36); Mean Corpuscular Hgb 31.6 pg (27.0-32.0); Mean Corpuscular Volume 101.6 fL (81-99); Mean Platelet Vol. 9.2 fl (6.2-12.0); Monocyte# 0.64 X10^3/uL; Monocyte% 4.1 % (0-10); NRBC Flagged by Analyzer 0 % (0-5); Neutrophil # 13.59 X10^3/uL (2.7-7.7); Platelet Count 284 K/mm3 (150-450); RBC Distribution Width CV 14.9 % (11.6-14.6); RBC Distribution Width SD 55.8 fl (35.1-43.9); Red Blood Count 3.07 M/mm3 (4.2-5.4); White Blood Count 15.6 K/mm3 (4.4-11.0)
[2023-08-11 07:26] LABS: Anion Gap 5 (5-15); BUN 40 mg/dL (7-18); BUN/Creat Ratio 9.1 RATIO (10-20); Calcium,Total 8.9 mg/dL (8.5-10.1); Chloride 98 mmol/L (98-107); Creatinine, Serum 4.38 mg/dL (0.55-1.02); EST Glomerular Filtration Rate 11 mL/min (>60); Est Glom Filt Rate - Afr Amer 13 mL/min (>60); Estimated Creatinine Clearance 11.06 ml/min; Glucose 89 mg/dL (74-106); Potassium 4.3 mmol/L (3.5-5.1); Sodium Level 134 mmol/L (136-145)
[2023-08-11] MEDS: Pantoprazole Sodium 40 MG Tablet PO (09:29)
[2023-08-11] MEDS: Sertraline 50 MG Tablet 25 MG PO (09:29)
[2023-08-11] MEDS: NIFEdipine 90 MG Tablet PO ×2 (09:29→21:24)
[2023-08-11] MEDS: SEVELAMER CARBONATE 800 MG TABLET PO ×2 (09:30→18:37)
[2023-08-11] MEDS: Aspirin E.C. 81 MG Tablet PO (09:30)
[2023-08-11] MEDS: Cholecalciferol (VIT D3) 25 MCG TABLET (1,000 UNITS) 50 MCG PO (09:30)
[2023-08-11] MEDS: Carvedilol 25 MG Tablet PO ×2 (09:31→21:18)
[2023-08-11] MEDS: Heparin Injection (Vial) 5,000 UNIT/ML VIAL 5000 UNIT SC ×2 (09:31→21:23)
[2023-08-11] MEDS: guaiFENesin 1,200 MG Tablet 1200 MG PO ×2 (09:31→21:24)
[2023-08-11] MEDS: Furosemide 40 MG/4 ML Vial IV ×2 (09:31→18:37)
[2023-08-11] MEDS: Folic Acid/Vitamin B Comp W-C 1 Capsule 1 CAP PO (09:32)
[2023-08-11] MEDS: Clopidogrel Bisulfate 75 MG Tablet PO (09:32)
--- NOTE | 2023-08-11 10:10 | CPS ---
Attempted ABG draw times one without success. Patient refused second attempt. RN and charge nurse aware.
--- NOTE | 2023-08-11 12:52 | EX.PCM.CONCC ---
Assessment & Plan Assessment/Plan (1) Bilateral pleural effusion: PLAN: Plan Assessment Acute on chronic hypoxic respiratory failure COPD exacerbation Volume overload and pulmonary edema ESRD on hemodialysis Bilateral pleural effusion Pericardial effusion Anemia of chronic disease CAD on aspirin and Plavix HTN Tobacco use Plan ?Reports she is on home oxygen. She is unsure of amount of oxygen she is usually on ? She received thoracentesis with around 1200 cc pleural fluid removed. Pleural fluid protein was less than 50% of serum however LDH was more than 60% of serum LDH which by definition would make fluid Exudative however being on Lasix may disrupt some of the pleural fluid chemistry readings and thus serum albumin to fluid albumin ratio would be a better test however unfortunately pleural fluid albumin was not tested. However given the patient's overall clinical status suspect that fluid is secondary to volume overload ? Chest x-ray today similar to post thoracentesis chest x-ray with signs of volume overload. Patient is due for dialysis today with the hopes that this improves her oxygen requirements. Discussed with medicine team if patient continues to be on 10+ liters via nasal cannula then patient to be transferred to the ICU -Upon evaluation patient did not appear to be in respiratory distress. I did wanted an ABG to ensure accurate PaO2 however patient refused it. ?If patient continues to be hypoxic despite dialysis today she may benefit from [id number] dialysis given her volume overload and hypertension ? Continue Solu-Medrol and breathing treatments. ? Monitor for worsening hemodynamics given pericardial effusion although per reports pericardial effusion is small ? PT OT, incentive spirometry and DVT prophylaxis HPI Consult Data Date of Consult: 08/11/23 HPI Narrative Reason for Consultation: Acute hypoxic respiratory failure HPI Narrative: BARI LAUGHLIN, is a 63 F past medical history of chronic hypoxic respiratory failure on home oxygen, ESRD on hemodialysis TTS, HTN, hyperlipidemia and COPD who presents with acute shortness of breath and volume overload. She underwent thoracentesis on the with over a liter of fluid removed. Patient continued to have shortness of breath. She is somewhat irritable and does not provide good history but reports that she has been having shortness of breath for several days now. She reports that she is a smoker but quit 2 weeks ago. She was found to have a vaping device on her person while she is in the hospital but insisted that she is not vaping. On evaluation patient was on 13 L of oxygen via nasal cannula. Apparently she refused heated high flow and BiPAP because she was not comfortable. She appeared comfortable on nasal cannula was speaking in full sentences. She was however frustrated with her current clinical status. [facility] Medical History (Updated 08/07/23 @ 18:07 by Bindu Mejias) AAA (abdominal aortic aneurysm) Anxiety Asthma Congestive heart failure (CHF) Coronary artery disease Depression Diabetes Dialysis patient History of high cholesterol Kidney disease Migraines Myocardial infarct On home oxygen therapy PTSD (post-traumatic stress disorder) Sleep apnea Substance abuse Home Medications cholecalciferol (vitamin D3) 25 mcg (1,000 unit) capsule 50 mcg PO DAILY SUPPLEMENT 10/02/21 [History Last Taken 08/07/23] aspirin 81 mg tablet,delayed release 81 mg PO DAILY HEART 11/14/22 [History Last Taken 08/07/23] atorvastatin 80 mg tablet 80 mg PO QHS CHOLESTEROL 11/14/22 [History Last Taken 08/06/23] carvedilol 25 mg tablet 25 mg PO BID HEART 11/14/22 [History Last Taken 08/07/23] clopidogrel 75 mg tablet 75 mg PO DAILY BLOOD THINNER 11/14/22 [History Last Taken 08/07/23] furosemide 80 mg tablet (Lasix) 80 mg PO TUTHSA FLUID 11/14/22 [History Last Taken 08/07/23] mirtazapine 7.5 mg tablet 7.5 mg PO QHS INSOMNIA 11/14/22 [History Last Taken 08/06/23] nitroglycerin 0.4 mg sublingual tablet 0.4 mg sublingual DAILY PRN CHEST PAIN 11/14/22 [History Last Taken Unknown] pantoprazole 40 mg tablet,delayed release 40 mg PO DAILY ACID REFLUX 11/14/22 [History Last Taken 08/07/23] sevelamer carbonate 800 mg tablet 800 mg PO TIDCM PHOSPHATE 11/14/22 [History Last Taken 08/06/23] vitamin B complex-vitamin C-folic acid 0.8 mg tablet (Mojgan-Kirk) 1 tab PO DAILY SUPPLEMENT 11/14/22 [History Last Taken 08/07/23] guaifenesin 600 mg tablet, extended release 12 hr (Mucus Relief ER) 1,200 mg (2 x 600 mg) PO Q12H COUGH #20 tabs 11/16/22 [Rx Last Taken 08/07/23] acetaminophen 325 mg capsule 650 mg PO BID PRN PAIN 08/07/23 [History Last Taken 08/06/23] albuterol sulfate 90 mcg/actuation aerosol inhaler (Ventolin HFA) 1 puff inhalation Q4H PRN WHEEZING 08/07/23 [History Last Taken Unknown] furosemide 80 mg tablet 80 mg PO BID FLUID 08/07/23 [History Last Taken 08/06/23] nifedipine 90 mg tablet,extended release 24 hr 90 mg PO BID BLOOD PRESSURE 08/07/23 [History Last Taken 08/07/23] sertraline 25 mg tablet 25 mg PO DAILY DEPRESSION 08/07/23 [History Last Taken 08/07/23] Allergy/AdvReac Type Severity Reaction Status Date / Time Latex, Natural Rubber Allergy Rash Verified 06/21/23 11:28 Penicillins Allergy Rash Verified 06/21/23 11:28 Family History Other CAD (coronary artery disease) Heart disease Surgical History H/O tubal ligation History of arteriovenostomy for renal dialysis History of section, classical History of colectomy History of coronary artery stent placement History of ligation of vein History of total hysterectomy Hx of umbilical hernia repair Social History (Updated 08/07/23 @ 11:[address] Torsten Velasquez MD) household members: none Smoking Status: Current every day smoker tobacco type: cigarettes substance use type: does not use ROS ROS Narrative Pertinent positives and pertinent negatives as noted in HPI. All other systems were reviewed and are negative Physical Exam Narrative General alert oriented in no acute distress HEENT. Normocephalic atraumatic, pupils equal and reactive Respiratory reduced air entry bilaterally, end expiratory wheeze Cardiac S1-S2, regular rate and rhythm GI abdomen soft and nontender MSK no lower extremity edema Skin no rashes Neuro moves all extremities, no dysarthria, no facial droop Lab / Micro Data 08/11/23 06:38 08/11/23 06:38 Labs: Laboratory Results - last 24 hr 08/07/23 15:10: Miscellaneous Cytology SEE PATHOLOGY REPORT 08/11/23 06:38: WBC 15.6 H, RBC 3.07 L, Hgb 9.7 L, Hct 31.2 L, MCV 101.6 H, MCH 31.6, MCHC 31.1 L, RDW Std Deviation 55.8 H, RDW Coeff of Lola 14.9 H, Plt Count 284, MPV 9.2, Immature Gran % (Auto) 2.700 H, Neut % (Auto) 87.0 H, Lymph % (Auto) 5.5 L, [place] % (Auto) 4.1, Eos % (Auto) 0.3, Baso % (Auto) 0.4, Absolute Neuts (auto) 13.6 H, Absolute Lymphs (auto) 0.86, Nucleated RBC % 0, Sodium 134 L, Potassium 4.3, Chloride 98, Carbon Dioxide 31.0, Anion Gap 5, BUN 40 H, Creatinine 4.38 H, Estim Creat Clear Calc 11.06, Est GFR (MDRD) Af Amer 13 L, Est GFR (MDRD) Non-Af 11 L, BUN/Creatinine Ratio 9.1 L, Glucose 89, Calcium 8.9 Micro: Microbiology 08/07/23 15:10 Fluid - Thoracentesis Fluid Gram Stain - Final 08/07/23 15:10 Fluid - Thoracentesis Fluid Body Fluid Culture - Final No growth aerobically. 08/07/23 15:10 Fluid - Thoracentesis Fluid Anaerobic Culture - Preliminary No growth in 48 hours. 08/08/23 10:17 Sputum, Expectorated/Coughed Gram Stain - Final 08/08/23 10:17 Sputum, Expectorated/Coughed Respiratory Culture - Final Presumptive C albicans Rhythm Strip Rhythm Strip: Sinus Rhythm Rate: 80 Imagaing Radiology Impression Chest X-Ray 08/10/23 14:52 IMPRESSION: Volume overload with enlarging moderate bilateral pleural effusions. Electronically Signed: Ced Beebe MD at 17:13 EST , Charges/Coding Visit Charges Inpatient E&M: 86533 Init Hosp L3
--- NOTE | 2023-08-11 13:53 | PN_ITS ---
Subjective Subjective Patient seen and examined. She is requiring increasing amounts of oxygen and was up to 15 L this morning. Subsequently came down to 10 L but was up to 13 L by afternoon. She says she still feels short of breath. She is still wheezing. She is not coughing and denies any chest pain or palpitations, dizziness or any other symptoms. Review of systems otherwise negative. Objective Data Objective Data Vital Signs: Vital Signs Temp Pulse Resp BP Pulse Ox O2 Del Method O2 Flow Rate 97.8 F 55 L 18 150/54 H 93 High Flow 13 08/11/23 09:41 08/11/23 13:40 08/11/23 13:40 08/11/23 13:40 08/11/23 13:40 08/11/23 13:40 08/11/23 13:40 FiO2 65 08/11/23 00:25 Oxygen Flow Rate (L/min) 13 Oxygen Delivery Method High Flow Weight: 171 lb 4.787 oz Body Mass Index (BMI) 29.4 Intake & Output: Intake and Output for Last 24 Hours 08/09/23 08/10/23 08/11/23 23:59 23:59 23:59 Intake Total 705 / 725 1065 / 1265 500 / 500 Output Total 2240 / 2240 0 / 0 0 / 0 Balance -1535 / -1515 1065 / 1265 500 / 500 Lab / Micro Data 08/11/23 06:38 08/11/23 06:38 Labs: Laboratory Results - last 24 hr 08/11/23 06:38: WBC 15.6 H, RBC 3.07 L, Hgb 9.7 L, Hct 31.2 L, MCV 101.6 H, MCH 31.6, MCHC 31.1 L, RDW Std Deviation 55.8 H, RDW Coeff of Lola 14.9 H, Plt Count 284, MPV 9.2, Immature Gran % (Auto) 2.700 H, Neut % (Auto) 87.0 H, Lymph % (Auto) 5.5 L, [place] % (Auto) 4.1, Eos % (Auto) 0.3, Baso % (Auto) 0.4, Absolute Neuts (auto) 13.6 H, Absolute Lymphs (auto) 0.86, Nucleated RBC % 0, Sodium 134 L, Potassium 4.3, Chloride 98, Carbon Dioxide 31.0, Anion Gap 5, BUN 40 H, Creatinine 4.38 H, Estim Creat Clear Calc 11.06, Est GFR (MDRD) Af Amer 13 L, Est GFR (MDRD) Non-Af 11 L, BUN/Creatinine Ratio 9.1 L, Glucose 89, Calcium 8.9 Micro: Microbiology 08/07/23 15:10 Fluid - Thoracentesis Fluid Gram Stain - Final 08/07/23 15:10 Fluid - Thoracentesis Fluid Body Fluid Culture - Final No growth aerobically. 08/07/23 15:10 Fluid - Thoracentesis Fluid Anaerobic Culture - Preliminary No growth in 48 hours. 08/08/23 10:17 Sputum, Expectorated/Coughed Gram Stain - Final 08/08/23 10:17 Sputum, Expectorated/Coughed Respiratory Culture - Final Presumptive C albicans 08/09/23 04:59 Urine, Clean Catch Streptococcus pneumoniae Antigen (M - Final 08/09/23 04:59 Urine, Clean Catch Legionella Antigen - Final 08/07/23 21:25 Mucosa - Nasopharyngeal Respiratory Panel (PCR) - Final 08/07/23 11:31 Nasal Secretion SARS-CoV-2 & FLU Antigen (Rapid) - Final 08/07/23 11:31 Mucosa - Nasopharyngeal Rapid RSV (DFA) - Final Radiography Diagnostic Testing: Radiology Impression Chest X-Ray 08/10/23 14:52 IMPRESSION: Volume overload with enlarging moderate bilateral pleural effusions. Electronically Signed: Ced Beebe MD at 17:13 EST , Rhythm Strip Rhythm Strip: Sinus Rhythm Rate: 80 Physical Exam Const alert and oriented x3 Constitutional Narrative: in mild respiratory distress General Appearance: cooperative HEENT normocephalic, head/scalp atraumatic, moist oral mucous membranes and oropharynx normal Eyes PERRL and EOMs intact bilaterally Neck no lymphadenopathy and supple Lymph Lymphatic: no lymphadenopathy noted and no lymphedema noted Resp Resp Narrative: moderately diminished breath sounds bibasally, mild bilateral wheezing, no crackles. On 13L of oxygen by nasal canula. Cardio regular rate, regular rhythm, S1 normal heart sound, S2 normal heart sound and no murmurs GI normal to inspection, nondistended, normoactive bowel sounds, soft to palpation, non-tender and non-distended Extremity normal capillary refill, no clubbing, cyanosis or edema and no calf tenderness General Extremity: no tenderness to palpation of joints or extremities Skin General Skin Exam: no breakdown and turgor normal Neuro CN's II-XII intact bilaterally, no focal motor deficits, no sensory deficits noted and deep tendon reflexes 2+ bilaterally Motor Exam: strength 5/5 throughout and general weakness Psych thought process normal, cooperative and affect normal Appearance: appropriate Assessment & Plan Assessment/Plan (1) Bilateral pleural effusion: (2) Acute hypoxemic respiratory failure: (3) Acute pericardial effusion: PLAN: Plan #Acute hypoxic respiratory failure * due to fluid overload and bilateral pleural effusions as well as probable COPD exacerbation * Chest CT showed bilateral effusion, with large effusion on the left. * had thoracentesis on admission with removal of 1280mls * titrate oxygen to maintain sats >90% * breathing treatment with bronchodilators * 2D echo showed EF of 60% with no evidence of diastolic dysfunction and no regional wall motion abnormalities noted. Small pericardial effusion. * On ceftriaxone and azithromycin. Also on IV Solu-Medrol. * Now up to 13 L of oxygen and required as much as 15 L of oxygen. * Repeat chest x-ray done showed enlarging bilateral pleural effusions. * Pulmonology consulted due to increasing oxygen requirements. She is getting dialysis today which will help with fluid removal. * Low threshold to transfer to ICU. * #Acute heart failure with preserved EF * BNP is 1114. Likely due to heart failure. * 2D echo as above * not being diuresed due ot ESRD state. * mnanagment as above * #Probable COPD exacerbation: * Patient has a long history of smoking. Also wheezing. * on IV solumedrol * requiring increasing amounts of oxygen, so pulmonology consulted * Titrate oxygen to maintain saturation above 90%. Breathing treatments with bronchodilators. 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 #ESRD: on HD on Sunday, and Sunday. Nephrology on board. On sevelamer #GERD: on PPI #CAD: plavix held due to thoracentesis. DVT prophylaxis: heparin Charges/Coding Visit Charges Inpatient E&M: 64498 Subs Hosp L3
[2023-08-11] MEDS: PureFlow B 2K Dialysis Soln 1 BAG 6 BAG PF (14:53)
[2023-08-11] MEDS: 0.9% Normal Saline 1,000 ML IV.SOLN. 1000 ML OPERA.SITE (14:53)
[2023-08-11] MEDS: Heparin 10,000 UNITS/10 ML Vial IV (14:54)
[2023-08-11] MEDS: 0.9% Saline Lock 10 ML Syringe IV ×2 (14:54→21:19)
--- NOTE | 2023-08-11 15:20 | NURSING ---
Patient will be transferred to ICU for increasing oxygen demands
[2023-08-11] MEDS: oxyCODONE 5 MG Tablet PO ×2 (16:43→21:31)
[2023-08-11] MEDS: Ceftriaxone 2 GM in 0.9% Normal Saline (50mL MB+) 50 ML IV (21:18)
[2023-08-11] MEDS: Mirtazapine 15 MG Tablet 7.5 MG PO (21:24)
[2023-08-11] MEDS: Atorvastatin Calcium 80 MG Tablet PO (21:24)
[2023-08-11] MEDS: Azithromycin 500 MG in Dextrose 5%-Water (250mL Bag) 250 ML 250 MG IV (21:56)
[2023-08-11] MEDS: Mag Hydrox/Al Hydrox/Simeth 30 ML UDC 15 ML PO (23:18)
[2023-08-12] VITALS (38 sets, daily range): BP systolic 111–190; BP diastolic 43–73; PULSE 50–121; RESP 15–31; TEMP 35.9–36.6; O2SAT 87–99; BMI 28.3
--- NOTE | 2023-08-12 | IMM_PTH ---
PATHOLOGY RESULTS PATIENT: BARI LAUGHLIN LOC: [facility] U#:[id number] AGE/SX: 63/F ROOM: ICU02 RE08/07/[address]: Dr. Aden Larry MD : 1960 BED: 1 DIS: 08/23/2023 SPEC #: [id number] RECD: 08/15/23 14:48 STATUS: SHANNAN REQ #: [id number] ASHLEY: 08/12/23 00:[address]: Valentin Sanders DEPT: IMMUNOHISTOCHEMISTRY RECD BY: Lupe Whittington ENTERED: 08/15/23 14:50 SP TYPE: IMMUNO OTHR DR: MD Dr. Ermias Guadalupe, MD Dr. Kamran Son Dr., MD Dr. Mark Tereletsky, DO Dr. Paige Pierce, MD Dr. Tanmay Panchabhai, MD Dr. William Lago, MD Christina Muller, INTERNATIONAL LOGISTICS COORDINATOR-C Tissues: THORACIC FLUID Procedures: RCC (add) NAPSIN A (add) [place] Ret (add) CK20 (add) CK5-6 (add) CK7 (add) CK8 (add) HEP PAR (add) MN (add) TTF1 (add) Vimentin (add) Pankeratin (add) P40 (add) CD68 (ADD) ER (initial) PHYSICIAN & INSTITUTION [address] [address] SPECIMEN INFORMATION: Tissue Source: Thoracentesis fluid Clinical Info: Pleural effusion Specimen Number: [id number] CPT code: 43075, 30442 x14 METHODOLOGY: Deparaffinized sections of prefer/formalin-fixed tissue or PAP/DQ stained slides are incubated with monoclonal/polyclonal antibodies/oligonucleotide probes. Localization is made via biotin free immunoperoxidase method. Appropriate controls are performed and reacted as expected. Results on target cell population are indicated in the following table: RESULTS: ANTIBODY / CLONE RESULT ER (6F11) negative MN (1E2) negative AE1-3 (AE1/AE3/PCK26) negative * CK7 (OV-TL12/30) negative * CK8 (58uwtqX91) negative * CK20 (KS20.8) negative Vimentin (V9) negative * CD68 (KP-1) negative TTF-1 (8G7G3/1) negative Napsin A (Rabbit Polyclonal) negative HepPar (OCh1E5) negative RCC (PN-15) negative CALRET (polyclonal) negative * CK5-6 (D5 & 1684) negative * P40 (BC28) negative *?Positive in mesothelial cells. These tests were developed and their performance characteristics determined by [facility]. They may not have been cleared or approved by the U.S. Food and Drug Administration. The FDA has determined that such clearance or approval is not necessary. The above immunohistochemical/dualISH markers are ordered and reviewed by the Pathologist. INTERPRETATION: Thoracentesis fluid (cell block): Negative for malignant cells. See comment. SJ:wayne 08/16/2023 Comment: Reactive mesothelial cells are noted.
[2023-08-12] MEDS: hydrALAZINE 20 MG/ML Vial 10 MG IV (00:19)
[2023-08-12] MEDS: hydrALAZINE 20 MG/ML Vial IV ×3 (02:43→23:19)
[2023-08-12] MEDS: 0.9% Saline Lock 10 ML Syringe IV ×8 (02:43→23:20)
[2023-08-12] MEDS: Metoprolol Tartrate 5 MG/5 ML Vial IV ×2 (04:13→06:22)
[2023-08-12 04:30] LABS: Absolute Lymphocyte Count 0.61 X10^3/uL (0.83-4.51); Absolute Neutrophil Count 12.7 X10^3/uL (2.0-7.7); Basophil# 0.05 X10^3/uL; Basophil% 0.3 % (0-1); Eosinophil# 0.05 X10^3/uL; Eosinophils% 0.3 % (0-5); Hematocrit 32.8 % (37-47); Hemoglobin 10.2 g/dL (12.0-15.0); Lymphocyte # 0.61 X10^3/ul (0.83-4.51); Lymphocyte % 4.2 % (19-41); Mean Corp Hgb Conc 31.1 g/dL (32-36); Mean Corpuscular Hgb 30.9 pg (27.0-32.0); Mean Corpuscular Volume 99.4 fL (81-99); Mean Platelet Vol. 8.9 fl (6.2-12.0); Monocyte# 0.63 X10^3/uL; Monocyte% 4.3 % (0-10); NRBC Flagged by Analyzer 0 % (0-5); Neutrophil # 12.69 X10^3/uL (2.7-7.7); Neutrophil % 86.7 % (47-70); Platelet Count 258 K/mm3 (150-450); RBC Distribution Width CV 14.7 % (11.6-14.6); RBC Distribution Width SD 53.4 fl (35.1-43.9); White Blood Count 14.6 K/mm3 (4.4-11.0)
[2023-08-12 04:51] LABS: Anion Gap 8 (5-15); BUN 51 mg/dL (7-18); BUN/Creat Ratio 15.7 RATIO (10-20); Calcium,Total 9.3 mg/dL (8.5-10.1); Chloride 99 mmol/L (98-107); Creatinine, Serum 3.25 mg/dL (0.55-1.02); EST Glomerular Filtration Rate 15 mL/min (>60); Est Glom Filt Rate - Afr Amer 18 mL/min (>60); Glucose 114 mg/dL (74-106); LDH 202 U/L (84-246); Sodium Level 137 mmol/L (136-145)
--- NOTE | 2023-08-12 05:50 | PCM.HOSP.N ---
Hospitalist Note BP elevated, hydralazine PRN not markedly effective. Will dose with IV BB. Will need oral regimen adjustment pending further BP trending.
[2023-08-12] MEDS: Clopidogrel Bisulfate 75 MG Tablet PO (08:20)
[2023-08-12] MEDS: Sertraline 50 MG Tablet 25 MG PO (08:20)
[2023-08-12] MEDS: guaiFENesin 1,200 MG Tablet 1200 MG PO ×2 (08:20→20:42)
[2023-08-12] MEDS: Carvedilol 25 MG Tablet PO ×2 (08:20→20:41)
[2023-08-12] MEDS: NIFEdipine 90 MG Tablet PO ×2 (08:21→20:41)
[2023-08-12] MEDS: Folic Acid/Vitamin B Comp W-C 1 Capsule 1 CAP PO (08:21)
[2023-08-12] MEDS: Cholecalciferol (VIT D3) 25 MCG TABLET (1,000 UNITS) 50 MCG PO (08:21)
[2023-08-12] MEDS: Pantoprazole Sodium 40 MG Tablet PO (08:21)
[2023-08-12] MEDS: Furosemide 40 MG/4 ML Vial IV ×2 (08:26→17:09)
[2023-08-12] MEDS: Aspirin E.C. 81 MG Tablet PO (08:26)
[2023-08-12 09:03] LABS: Blood Gas Specimen Type VEN; O2 Delivery Device Not entered; SITE L Brach; VBG BASE EXCESS 1 mmol/L (-1.0-3.5); VBG Bicarbonate 26 mmol/L (22-26); VBG PO2 47 mmHg (25-40); VBG SO2 81 % (50-70); VBG TCO2 28 mmol/L (23-33); VBG pCO2 45.4 mmHg (41-51); VBG pH 7.37 (7.32-7.42)
[2023-08-12] MEDS: SEVELAMER CARBONATE 800 MG TABLET PO ×2 (09:17→17:10)
[2023-08-12] MEDS: Heparin Injection (Vial) 5,000 UNIT/ML VIAL 5000 UNIT SC ×2 (09:17→20:40)
--- NOTE | 2023-08-12 10:19 | RAD_ITS ---
EXAM: XR CHEST, 1 VIEW CLINICAL INDICATION: Postthoracentesis. TECHNIQUE: Frontal view of the chest. COMPARISON: 08/11/2023. FINDINGS: LUNGS AND PLEURAL SPACES: Subsegmental atelectases in the right lower lung zone and mild compressive atelectasis of left lung base. Horizontal linear scarring subsegmental atelectases in the left midlung is unchanged. Bilateral pleural effusions. No pneumothorax. HEART: Cardiomegaly is unchanged. MEDIASTINUM: Central airways and mediastinal contour are unremarkable. BONES/JOINTS: Unremarkable. No acute fracture. SOFT TISSUES: Unremarkable. TUBES, LINES AND DEVICES: Left IJ approach double lumen catheter tip remains in the distal SVC. RAD/Chest 1 View (Portable) IMPRESSION: 1. No pneumothorax or acute cardiopulmonary pathology following thoracentesis. 2. Subsegmental atelectasis in the right lung zone, compressive atelectasis of left lung base and horizontal linear subsegmental atelectasis or scarring in the left midlung are unchanged. Electronically Signed: Reggie Uriarte MD at 14:00 EST ,
[2023-08-12] MEDS: LORazepam 2 MG/ML Syringe 1 MG IV (10:26)
[2023-08-12] MEDS: HYDROmorphone Inj 0.2 MG/ML SYRINGE 0.200000000000000011 MG IV ×2 (10:27→20:35)
--- NOTE | 2023-08-12 11:00 | FLU_PTH ---
PATHOLOGY RESULTS PATIENT: BARI LAUGHLIN LOC: [facility] U#:[id number] AGE/SX: 63/F ROOM: ICU02 RE08/07/[address]: Dr. Aden Larry MD : 1960 BED: 1 DIS: 08/23/2023 SPEC #: [id number] RECD: 08/14/23 12:57 STATUS: SHANNAN RELee #: [id number] ASHLEY: 08/12/23 11:[address]: Valentin Sanders DEPT: CYTOLOGY RECD BY: Rachel Arias ENTERED: 08/14/23 12:57 SP TYPE: Fluid OTHR DR: MD Dr. Ermias Guadalupe, MD Dr. Kamran Son Dr., MD Dr. Mark Tereletsky, DO Dr. Paige Pierce, MD Dr. Tanmay Panchabhai, MD Dr. William Lago, MD Christina Muller, BROOM MAN-C Tissues: THORACIC FLUID Procedures: Special Stain Group II Mucicarmine Stain (control) Surgery Specimen Level IV Cytospin Fluid HEADER OPERATION: Thoracentesis PRE-OP DIAGNOSIS: Pleural effusion TISSUE SUBMITTED: Thoracentesis fluid for cytology DIAGNOSIS CYTOLOGY Thoracentesis fluid for cytology (cytospin and cell block): Negative for malignant cells. See comment. SJ:wayne 08/16/2023 COMMENT Immunohistochemistry ([id number]) supports the above diagnosis. Reactive mesothelial cells are noted. Mucin stain with matched control is also used in the evaluation of the specimen. Case has been reviewed in consultation with Dr. Roy who concurs with the above diagnosis. IDC:AM CYTOLOGY STUDY Slides are reviewed. CYTOLOGY GROSS Received is 10 ml of elen cloudy fluid labeled with the patient's name and and designated per the requisition as thoracentesis. Submitted for cytology preparation including cell block. / wayne 08/14/2023 TC:5 CPT: 37312, 02714, 74742
--- NOTE | 2023-08-12 11:19 | PCM.OP.PRO ---
Procedure Report Date of Procedure: 08/12/23 Date of Procedure: 08/12/23 US guided R sided thoracentesis Indication: Acute on chronic hypoxic resp failure , Large pleural effusion Consent obtained from patient A time-out was completed verifying correct patient, procedure, site, positioning, and special equipment if applicable. The patient?s <right> side was prepped and draped in a sterile manner after the appropriate infiltration level was confirmed by ultrasound. 1% lidocaine was used anesthetize the surrounding skin. A finder needle was then used to locate fluid and clear yellow fluid was obtained. A 10-blade scalpel used to make the incision. The thoracentesis catheter was then threaded without difficulty. The patient had <1000mL> of orange fluid removed. A post-procedure chest x-ray was ordered and the fluid will be sent for several studies. Procedures Hospitalists Procedures: 88941 Aspirate Pleura w/Imaging
--- NOTE | 2023-08-12 12:12 | PN.CC_ITS ---
Assessment & Plan Assessment/Plan (1) Bilateral pleural effusion: PLAN: Plan Assessment * Acute on chronic hypoxic respiratory failure * COPD exacerbation * Volume overload and pulmonary edema * ESRD on hemodialysis * Bilateral pleural effusion s/p b/l thoras * Pericardial effusion * Anemia of chronic disease * CAD on aspirin and Plavix * HTN * Tobacco use Plan ?Reports she is on home oxygen. She is unsure of amount of oxygen she is usually on ? She received thoracentesis with around 1200 cc pleural fluid removed from L on 08/07. Today R thora with 1000cc removed and she had alot of pain despite manual drainage instead of the -ve pressure bottle. Post procedural CXR showing signs of trapped lung. Fluid sent for eval. -She remains very hypoxic and uncooperative. Her sats improved with Airvo but precedex had to be started as well as a dose of ativan and dilaudid. She will benefit from daily HD as she appears volume overloaded as evident by her b/l Pleural effusions and persistent elevated bp. Nephro will evaluate. ? Continue Solu-Medrol and breathing treatments. ? Monitor for worsening hemodynamics given pericardial effusion although per reports pericardial effusion is small ? PT OT, incentive spirometry and DVT prophylaxis Subjective Subjective continues to be hypoxic. Initially refused airvo due to feeling of claustrophobia. She then agreed after she took her ativan and dilaudid. She was complaining of pain with the thora. likely 2/2 trapped lung Objective Data Objective Data Vital Signs: Vital Signs Temp Pulse Resp BP Pulse Ox O2 Del Method O2 Flow Rate 36.2 C L 52 L 16 138/55 H 97 Airvo 60 08/12/23 12:00 08/12/23 12:00 08/12/23 12:00 08/12/23 12:00 08/12/23 12:00 08/12/23 12:00 08/12/23 12:00 FiO2 92 08/12/23 12:00 Oxygen Flow Rate (L/min) 60 Oxygen Delivery Method Airvo Weight: 75 kg Body Mass Index (BMI) 28.3 Intake & Output: Intake and Output for Last 24 Hours 08/10/23 08/11/23 08/12/23 23:59 23:59 23:59 Intake Total 1065 / 1265 925 / 925 210 / 210 Output Total 0 / 0 2750 / 2750 1200 / 1200 Balance 1065 / 1265 -1825 / -1825 -990 / -990 Lab / Micro Data 08/12/23 04:19 08/12/23 04:19 Labs: Laboratory Results - last 24 hr 08/12/23 04:19: WBC 14.6 H, RBC 3.30 L, Hgb 10.2 L, Hct 32.8 L, MCV 99.4 H, MCH 30.9, MCHC 31.1 L, RDW Std Deviation 53.4 H, RDW Coeff of Lola 14.7 H, Plt Count 258, MPV 8.9, Immature Gran % (Auto) 4.200 H, Neut % (Auto) 86.7 H, Lymph % (Auto) 4.2 L, [place] % (Auto) 4.3, Eos % (Auto) 0.3, Baso % (Auto) 0.3, Absolute Neuts (auto) 12.7 H, Absolute Lymphs (auto) 0.61 L, Nucleated RBC % 0, Sodium 137, Potassium 4.0, Chloride 99, Carbon Dioxide 30.0, Anion Gap 8, BUN 51 H, Creatinine 3.25 H, Estim Creat Clear Calc 14.90, Est GFR (MDRD) Af Amer 18 L, Est GFR (MDRD) Non-Af 15 L, BUN/Creatinine Ratio 15.7, Glucose 114 H, Calcium 9.3, Lactate Dehydrogenase 202 Micro: Microbiology 08/07/23 15:10 Fluid - Thoracentesis Fluid Gram Stain - Final 08/07/23 15:10 Fluid - Thoracentesis Fluid Body Fluid Culture - Final No growth aerobically. 08/07/23 15:10 Fluid - Thoracentesis Fluid Anaerobic Culture - Preliminary No growth in 48 hours. 08/08/23 10:17 Sputum, Expectorated/Coughed Gram Stain - Final 08/08/23 10:17 Sputum, Expectorated/Coughed Respiratory Culture - Final Presumptive C albicans 08/09/23 04:59 Urine, Clean Catch Streptococcus pneumoniae Antigen (M - Final 08/09/23 04:59 Urine, Clean Catch Legionella Antigen - Final 08/07/23 21:25 Mucosa - Nasopharyngeal Respiratory Panel (PCR) - Final 08/07/23 11:31 Nasal Secretion SARS-CoV-2 & FLU Antigen (Rapid) - Final 08/07/23 11:31 Mucosa - Nasopharyngeal Rapid RSV (DFA) - Final ABG Data ABG results: ABG 08/12/23 08:58 Specimen Type SORAYA Sample Site L Brach O2 % 12.0 VBG pH 7.37 VBG pO2 47 H VBG HCO3 26 VBG Total CO2 28 VBG O2 Sat (Calc) 81 H VBG Base Excess 1 POC Mix VBG pCO2 Pt Tmp 45.4 O2 Delivery Device Not entered Radiography Diagnostic Testing: Radiology Impression Chest X-Ray 08/11/23 07:00 IMPRESSION: 1. Bilateral pleural effusions and opacities in the lower lungs bilaterally that may be due to atelectasis and/or edema similar to the prior exam. 2. Stable cardiomegaly. 3. No change dialysis catheter. Electronically Signed: Jason Guillen MD at 5:36 EST , Rhythm Strip Rhythm Strip: Sinus Rhythm Rate: 80 Physical Exam Narrative General alert oriented HEENT. Normocephalic atraumatic, pupils equal and reactive Respiratory reduced air entry bilaterally, end expiratory wheeze Cardiac S1-S2, regular rate and rhythm GI abdomen soft and nontender MSK 1+ lower extremity edema Skin no rashes Neuro moves all extremities, no dysarthria, no facial droop Charges/Coding Visit Charges Inpatient E&M: 54322 Subs Hosp L3
[2023-08-12] MEDS: Ipratropium/Albuterol Sulfate 3 ML AMPUL.NEB INHALATION ×2 (12:14→19:18)
--- NOTE | 2023-08-12 12:53 | PN.HOSP_ITS ---
Reason for Visit Reason for Visit: Diagnoses Essential (primary) hypertension (08/07/23) Acute pericarditis, unspecified (08/07/23) Pleural effusion, not elsewhere classified (08/07/23) Acute respiratory failure with hypoxia (08/07/23) Gastro-esophageal reflux disease without esophagitis (08/07/23) End stage renal disease (08/07/23) Subjective Subjective Patient was seen and examined today, I talked briefly with pulmonary medicine about her care. She underwent a right thoracentesis today with removal of approximately 1000 cc of blood-tinged fluid. Patient is currently on Airvo at this time. Objective Data Objective Data Vital Signs: Vital Signs Temp Pulse Resp BP Pulse Ox O2 Del Method O2 Flow Rate 97.2 F L 53 L 16 138/55 H 97 Airvo 60 08/12/23 12:00 08/12/23 12:14 08/12/23 12:14 08/12/23 12:00 08/12/23 12:14 08/12/23 12:00 08/12/23 12:00 FiO2 90 08/12/23 12:14 Oxygen Flow Rate (L/min) 60 Oxygen Delivery Method Airvo Weight: 75 kg Body Mass Index (BMI) 28.3 Intake & Output: Intake and Output for Last 24 Hours 08/10/23 08/11/23 08/12/23 23:59 23:59 23:59 Intake Total 1065 / 1265 925 / 925 210 / 210 Output Total 0 / 0 2750 / 2750 1200 / 1200 Balance 1065 / 1265 -1825 / -1825 -990 / -990 Lab / Micro Data 08/12/23 04:19 08/12/23 04:19 Labs: Laboratory Results - last 24 hr 08/12/23 04:19: WBC 14.6 H, RBC 3.30 L, Hgb 10.2 L, Hct 32.8 L, MCV 99.4 H, MCH 30.9, MCHC 31.1 L, RDW Std Deviation 53.4 H, RDW Coeff of Lola 14.7 H, Plt Count 258, MPV 8.9, Immature Gran % (Auto) 4.200 H, Neut % (Auto) 86.7 H, Lymph % (Auto) 4.2 L, [place] % (Auto) 4.3, Eos % (Auto) 0.3, Baso % (Auto) 0.3, Absolute Neuts (auto) 12.7 H, Absolute Lymphs (auto) 0.61 L, Nucleated RBC % 0, Sodium 137, Potassium 4.0, Chloride 99, Carbon Dioxide 30.0, Anion Gap 8, BUN 51 H, Creatinine 3.25 H, Estim Creat Clear Calc 14.90, Est GFR (MDRD) Af Amer 18 L, Est GFR (MDRD) Non-Af 15 L, BUN/Creatinine Ratio 15.7, Glucose 114 H, Calcium 9.3, Lactate Dehydrogenase 202 Micro: Microbiology 08/07/23 15:10 Fluid - Thoracentesis Fluid Gram Stain - Final 08/07/23 15:10 Fluid - Thoracentesis Fluid Body Fluid Culture - Final No growth aerobically. 08/07/23 15:10 Fluid - Thoracentesis Fluid Anaerobic Culture - Preliminary No growth in 48 hours. 08/08/23 10:17 Sputum, Expectorated/Coughed Gram Stain - Final 08/08/23 10:17 Sputum, Expectorated/Coughed Respiratory Culture - Final Presumptive C albicans 08/09/23 04:59 Urine, Clean Catch Streptococcus pneumoniae Antigen (M - Final 08/09/23 04:59 Urine, Clean Catch Legionella Antigen - Final 08/07/23 21:25 Mucosa - Nasopharyngeal Respiratory Panel (PCR) - Final 08/07/23 11:31 Nasal Secretion SARS-CoV-2 & FLU Antigen (Rapid) - Final 08/07/23 11:31 Mucosa - Nasopharyngeal Rapid RSV (DFA) - Final ABG Data ABG results: ABG 08/12/23 08:58 Specimen Type SORAYA Sample Site L Brach O2 % 12.0 VBG pH 7.37 VBG pO2 47 H VBG HCO3 26 VBG Total CO2 28 VBG O2 Sat (Calc) 81 H VBG Base Excess 1 POC Mix VBG pCO2 Pt Tmp 45.4 O2 Delivery Device Not entered Radiography Diagnostic Testing: Radiology Impression Chest X-Ray 08/11/23 07:00 IMPRESSION: 1. Bilateral pleural effusions and opacities in the lower lungs bilaterally that may be due to atelectasis and/or edema similar to the prior exam. 2. Stable cardiomegaly. 3. No change dialysis catheter. Electronically Signed: Jason Guillen MD at 5:36 EST , Rhythm Strip Rhythm Strip: Sinus Rhythm Rate: 80 Physical Exam Const alert and no apparent distress General Appearance: cooperative, well kempt and well developed Orientation / Consciousness: awake, oriented to person and oriented to place HEENT normocephalic, head/scalp atraumatic and moist oral mucous membranes Eyes PERRL, EOMs intact bilaterally and conjunctivae normal Neck supple, no JVD, thyroid normal and no carotid bruits General: trachea midline Resp normal respiratory effort, no retractions and no use of accessory muscles Resp Narrative: Breath sounds are diminished bilaterally at the bases Auscultation: Negative for rales, rhonchi or wheezes Cardio regular rate, regular rhythm, S1 normal heart sound, S2 normal heart sound, no murmurs, no rub and no gallops GI normal to inspection, nondistended, normoactive bowel sounds, soft to palpation, non-tender and non-distended Extremity no clubbing, cyanosis or edema Skin no rashes or lesions noted General Skin Exam: no breakdown Neuro CN's II-XII intact bilaterally, moves all extremities, no focal motor deficits and no sensory deficits noted Sensorium / Orientation: awake, alert, oriented to person and oriented to place Speech: speech normal Psych Psych Narrative: Patient appears mildly anxious at the time of my examination Assessment & Plan Assessment/Plan (1) Acute hypoxemic respiratory failure: PLAN: Plan 1. Acute on chronic hypoxic respiratory failure-patient is currently on Airvo, pulmonary medicine is participating in her care #2 bilateral pleural effusions-status post thoracentesis right side today #3 end-stage renal disease on hemodialysis-nephrology is participating in her care #4 exacerbation of COPD-patient will continue Solu-Medrol and aerosol treatment #5 anemia of chronic renal disease-labs will be monitored #6 essential hypertension-patient will remain on her present medications Total clinical time spent by myself addressing the patient's medical issues, reviewing all of her data, and collaborating with patient's care team: 35 minutes Charges/Coding Visit Charges Inpatient E&M: 06779 Subs Hosp L2
[2023-08-12 13:18] LABS: Hematocrit 32.3 % (37-47); Hemoglobin 10.2 g/dL (12.0-15.0)
[2023-08-12 13:27] LABS: Glucose, Body Fluid 121 mg/dL (40-70); LDH,Body Fluid 224 Units/L (Not Establ.); Protein, Body Fluid 2.8 g/dL (Not Establ.)
[2023-08-12 13:47] LABS: Body Fluid Mononuclear WBC # 1.398 10^3/uL; Body Fluid Mononuclear WBC % 84.2 %; Body Fluid Polynuclear WBC # 0.262 10^3/uL; Body Fluid Polynuclear WBC % 15.8 %; Body Fluid Total Cells Counted 1.757 10^3/ul; Red Cell Count/Body Fluid 0.009 10^6/ul
[2023-08-12 14:56] LABS: Auto B Fluid Analyzer BKGD Ct COUNTS W/IN LIMITS (W/IN LIMITS); Color/Body Fluid YELLOW; Lymphocytes 61 %; Macrophages 25 %; Mesothelial Cells 1 %; Monocytes 1 %; Neutrophil (Segs) 12 %; Source- Body Fluid THORACENTESIS
[2023-08-12 14:57] LABS: Appearance/Body Fluid CLOUDY; Body Fluid QC Type(s) BF1Q
[2023-08-12 17:38] LABS: Bedside Glucose 117 mg/dL (74-106)
[2023-08-12] MEDS: Ceftriaxone 2 GM in 0.9% Normal Saline (50mL MB+) 50 ML IV (20:35)
[2023-08-12] MEDS: Atorvastatin Calcium 80 MG Tablet PO (20:40)
[2023-08-12] MEDS: Mirtazapine 15 MG Tablet 7.5 MG PO (20:41)
--- NOTE | 2023-08-12 21:08 | PCM.PN.REN ---
Subjective Subjective events noted. in ICU. s/p right thoracocentesis. remains dyspneic. Objective Data Objective Data Vital Signs: Vital Signs Temp Pulse Resp BP Pulse Ox O2 Del Method O2 Flow Rate 97 F L 66 20 H 176/64 H 95 Airvo 60 08/12/23 18:00 08/12/23 19:00 08/12/23 19:00 08/12/23 19:00 08/12/23 19:00 08/12/23 19:00 08/12/23 19:00 FiO2 70 08/12/23 19:00 Oxygen Flow Rate (L/min) 60 Oxygen Delivery Method Airvo Weight: 75 kg Body Mass Index (BMI) 28.3 Intake & Output: Intake and Output for Last 24 Hours 08/10/23 08/11/23 08/12/23 23:59 23:59 23:59 Intake Total 1065 / 1265 925 / 925 210 / 210 Output Total 0 / 0 2750 / 2750 1200 / 1200 Balance 1065 / 1265 -1825 / -1825 -990 / -990 Lab / Micro Data 08/12/23 13:10 08/12/23 04:19 Labs: Laboratory Results - last 24 hr 08/12/23 04:19: WBC 14.6 H, RBC 3.30 L, Hgb 10.2 L, Hct 32.8 L, MCV 99.4 H, MCH 30.9, MCHC 31.1 L, RDW Std Deviation 53.4 H, RDW Coeff of Lola 14.7 H, Plt Count 258, MPV 8.9, Immature Gran % (Auto) 4.200 H, Neut % (Auto) 86.7 H, Lymph % (Auto) 4.2 L, [place] % (Auto) 4.3, Eos % (Auto) 0.3, Baso % (Auto) 0.3, Absolute Neuts (auto) 12.7 H, Absolute Lymphs (auto) 0.61 L, Nucleated RBC % 0, Sodium 137, Potassium 4.0, Chloride 99, Carbon Dioxide 30.0, Anion Gap 8, BUN 51 H, Creatinine 3.25 H, Estim Creat Clear Calc 14.90, Est GFR (MDRD) Af Amer 18 L, Est GFR (MDRD) Non-Af 15 L, BUN/Creatinine Ratio 15.7, Glucose 114 H, Calcium 9.3, Lactate Dehydrogenase 202 08/12/23 11:00: Fluid Source THORACENTESIS, Fluid Color YELLOW, Fluid Appearance CLOUDY, Fluid WBC 1.660, Fluid RBC 0.009, Fluid Tot Cell Count 1.757 H, Fld Polynuclear WBCs # 0.262, Fld Polynuclear WBCs % 15.8, Fluid Mononuclear WBCs 1.398, Fld Mononuclear WBCs % 84.2, Fluid Neutrophils 12, Fluid Lymphocytes 61, Fluid Monocytes 1, Fluid Macrophages 25, Fld Mesothelial Cells 1, Fl Pathologist Comment May follow, Fluid Glucose 121 H, Fluid Total Protein 2.8, Fluid LDH 224, Fluid Comment 2 SEE COMMENT 08/12/23 13:10: Hgb 10.2 L, Hct 32.3 L 08/12/23 17:17: POC Glucose 117 H Micro: Microbiology 08/12/23 11:00 Fluid - Thoracentesis Fluid Gram Stain - Final 08/07/23 15:10 Fluid - Thoracentesis Fluid Gram Stain - Final 08/07/23 15:10 Fluid - Thoracentesis Fluid Body Fluid Culture - Final No growth aerobically. 08/07/23 15:10 Fluid - Thoracentesis Fluid Anaerobic Culture - Preliminary No growth in 48 hours. 08/08/23 10:17 Sputum, Expectorated/Coughed Gram Stain - Final 08/08/23 10:17 Sputum, Expectorated/Coughed Respiratory Culture - Final Presumptive C albicans 08/09/23 04:59 Urine, Clean Catch Streptococcus pneumoniae Antigen (M - Final 08/09/23 04:59 Urine, Clean Catch Legionella Antigen - Final 08/07/23 21:25 Mucosa - Nasopharyngeal Respiratory Panel (PCR) - Final 08/07/23 11:31 Nasal Secretion SARS-CoV-2 & FLU Antigen (Rapid) - Final 08/07/23 11:31 Mucosa - Nasopharyngeal Rapid RSV (DFA) - Final ABG Data ABG results: ABG 08/12/23 08:58 Specimen Type SORAYA Sample Site L Brach O2 % 12.0 VBG pH 7.37 VBG pO2 47 H VBG HCO3 26 VBG Total CO2 28 VBG O2 Sat (Calc) 81 H VBG Base Excess 1 POC Mix VBG pCO2 Pt Tmp 45.4 O2 Delivery Device Not entered Radiography Diagnostic Testing: Radiology Impression Chest X-Ray 08/11/23 07:00 IMPRESSION: 1. Bilateral pleural effusions and opacities in the lower lungs bilaterally that may be due to atelectasis and/or edema similar to the prior exam. 2. Stable cardiomegaly. 3. No change dialysis catheter. Electronically Signed: Jason Guillen MD at 5:36 EST , Chest X-Ray 08/12/23 10:19 IMPRESSION: 1. No pneumothorax or acute cardiopulmonary pathology following thoracentesis. 2. Subsegmental atelectasis in the right lung zone, compressive atelectasis of left lung base and horizontal linear subsegmental atelectasis or scarring in the left midlung are unchanged. Electronically Signed: Reggie Uriarte MD at 14:00 EST , Rhythm Strip Rhythm Strip: Sinus Rhythm Rate: 80 Physical Exam Narrative S1, S2, RRR Diminished breath sounds, no rhonchi or rales Abdomen soft, nontender No pitting edema Left chest tunneled HD catheter dressing clean, dry and intact Right upper arm AV fistula positive thrill and bruit Assessment & Plan Assessment/Plan (1) End-stage renal disease on hemodialysis: (2) Bilateral pleural effusion: (3) Anemia of chronic disease: PLAN: Plan - ESRD on hemodialysis Sunday schedule; HD yesterday. CXR reviewed. s/p r thoracocentesis. trapped lung on right side. will send SEAN levels due to repeated significant effusions. will plan for UF tomorrow. will likely do daily HD for few sessions and assess.
[2023-08-13] VITALS (46 sets, daily range): BP systolic 101–202; BP diastolic 51–91; PULSE 51–126; RESP 12–26; TEMP 35.9–36.8; O2SAT 88–98; BMI 26.8; BMI 25.9
[2023-08-13] MEDS: Metoprolol Tartrate 5 MG/5 ML Vial IV (02:43)
[2023-08-13 05:35] LABS: Absolute Lymphocyte Count 0.82 X10^3/uL (0.83-4.51); Absolute Neutrophil Count 14.4 X10^3/uL (2.0-7.7); Anion Gap 10 (5-15); BUN 65 mg/dL (7-18); BUN/Creat Ratio 16.2 RATIO (10-20); Basophil% 0.6 % (0-1); Calcium,Total 9.5 mg/dL (8.5-10.1); Chloride 100 mmol/L (98-107); Creatinine, Serum 4.01 mg/dL (0.55-1.02); EST Glomerular Filtration Rate 12 mL/min (>60); Eosinophil# 0.03 X10^3/uL; Eosinophils% 0.2 % (0-5); Est Glom Filt Rate - Afr Amer 14 mL/min (>60); Estimated Creatinine Clearance 12.08 ml/min; Glucose 121 mg/dL (74-106); Hematocrit 33.4 % (37-47); Hemoglobin 10.4 g/dL (12.0-15.0); Lymphocyte # 0.82 X10^3/ul (0.83-4.51); Lymphocyte % 4.9 % (19-41); Mean Corp Hgb Conc 31.1 g/dL (32-36); Mean Corpuscular Hgb 31.3 pg (27.0-32.0); Mean Corpuscular Volume 100.6 fL (81-99); Mean Platelet Vol. 9.4 fl (6.2-12.0); Monocyte# 0.61 X10^3/uL; Monocyte% 3.7 % (0-10); NRBC Flagged by Analyzer 0 % (0-5); Neutrophil # 14.35 X10^3/uL (2.7-7.7); Platelet Count 267 K/mm3 (150-450); Potassium 4.7 mmol/L (3.5-5.1); RBC Distribution Width CV 14.8 % (11.6-14.6); RBC Distribution Width SD 54.2 fl (35.1-43.9); Red Blood Count 3.32 M/mm3 (4.2-5.4); Sodium Level 136 mmol/L (136-145); White Blood Count 16.7 K/mm3 (4.4-11.0)
--- NOTE | 2023-08-13 06:25 | RAD_ITS ---
STUDY: X-RAY CHEST REASON FOR EXAM: Female, 63 years old. hypoxia TECHNIQUE: Single AP portable view of the chest. COMPARISON: Yesterday FINDINGS: Stable appearance of EKG leads and a left subclavian catheter. Lungs are underexpanded with persistent opacifications in both lung bases and bilateral pleural effusions. Overall, no interval change since previous study. Normal size heart. Normal mediastinum and mackenzie. Normal visualized pulmonary arteries. There is atherosclerotic calcification of the aortic arch with tortuosity. There are diffuse degenerative changes of the visualized thoracic spine. Normal visualized ribs, clavicles, and shoulders. There is no demonstrated abnormality of the visualized soft tissue structures of the upper abdomen. RAD/Chest 1 View (Portable) IMPRESSION: No interval change Electronically Signed: Raffi August MD at 10:58 EST ,
[2023-08-13] MEDS: Ipratropium/Albuterol Sulfate 3 ML AMPUL.NEB INHALATION ×3 (07:36→20:16)
[2023-08-13] MEDS: 0.9% Saline Lock 10 ML Syringe IV ×2 (08:10→20:00)
[2023-08-13] MEDS: 0.9% Normal Saline 1,000 ML IV.SOLN. 1000 ML OPERA.SITE (08:10)
--- NOTE | 2023-08-13 08:20 | PN.CC_ITS ---
Assessment & Plan Assessment/Plan (1) Bilateral pleural effusion: (2) Acute hypoxemic respiratory failure: PLAN: Plan RECOMMENDATIONS: 1. Continue aggressive volume removal 2. Wean oxygen as tolerated 3. Increase activity as tolerated 4. Continue empiric antibiotics, Solu-Medrol with bronchodilators for now 5. Discontinue Precedex therapy off the OCT 6. Possible outpatient thoracic surgery evaluation IMPRESSIONS: 1. Acute on chronic hypoxic respiratory failure secondary to fluid overload with bilateral pleural effusions Unclear if patient has an element of trapped lung. Patient has received bilateral thoracentesis with rapid reaccumulation and fluid studies consistent with a transudate. Patient does appear to be overall volume overloaded. Continue to wean supplemental oxygen as tolerated. Patient is a smoker with some concern of COPD, so the use of Solu-Medrol and breathing treatments would be appropriate. Clinical suspicion is for a multifactorial etiology. Chest x- ray this morning does show some improvement, but persistence of effusions. Transudate effusions do not typically lead to trapped lung. Patient may need outpatient evaluation by thoracic surgery. It is unclear if this lung can be recruited again as patient may have had fibrotic contraction secondary to persistent effusion versus previous empyema 2. End-stage renal disease on hemodialysis Patient does appear to be volume overloaded at this time. Patient with hypertension overnight. Continue volume removal as tolerated. Defer to nephrology on timing of hemodialysis. 3. Anemia of chronic disease/hypertension/CAD/history of tobacco abuse/anxiety Complicates care, management, recovery and prognosis. Patient does have a history of GI bleed in the past, but hemoglobins appear to be at her baseline. Patient does have significant hypertension, but this may be secondary to volume overloaded. Patient is on baseline medications. Subjective Subjective Patient did okay overnight. Patient is still requiring Airvo to maintain saturations. Patient did have a thoracentesis yesterday and reportedly had discomfort. Patient also able to tolerate hemodialysis with 2.5 L removed yes terday. Patient been sleeping most of the evening, but reportedly told nursing that she needs to be sedated to tolerate Airvo. Objective Data Objective Data Vital Signs: Vital Signs Temp Pulse Resp BP Pulse Ox O2 Del Method O2 Flow Rate 36.1 C L 56 L 16 143/57 H 95 Airvo 60 08/13/23 07:55 08/13/23 08:16 08/13/23 08:16 08/13/23 08:16 08/13/23 08:16 08/13/23 08:16 08/13/23 08:00 FiO2 50 08/13/23 08:16 Oxygen Flow Rate (L/min) 60 Oxygen Delivery Method Airvo Weight: 70.8 kg Body Mass Index (BMI) 26.8 Intake & Output: Intake and Output for Last 24 Hours 08/11/23 08/12/23 08/13/23 23:59 23:59 23:59 Intake Total 925 / 925 260 / 510 600 / 600 Output Total 2750 / 2750 1200 / 1450 400 / 400 Balance -1825 / -1825 -940 / -940 200 / 200 Lab / Micro Data Attestation: I reviewed the patient's lab results. 08/13/23 05:05 08/13/23 05:05 Labs: Laboratory Results - last 24 hr 08/12/23 11:00: Fluid Source THORACENTESIS, Fluid Color YELLOW, Fluid Appearance CLOUDY, Fluid WBC 1.660, Fluid RBC 0.009, Fluid Tot Cell Count 1.757 H, Fld Polynuclear WBCs # 0.262, Fld Polynuclear WBCs % 15.8, Fluid Mononuclear WBCs 1.398, Fld Mononuclear WBCs % 84.2, Fluid Neutrophils 12, Fluid Lymphocytes 61, Fluid Monocytes 1, Fluid Macrophages 25, Fld Mesothelial Cells 1, Fl Pathologist Comment May follow, Fluid Glucose 121 H, Fluid Total Protein 2.8, Fluid LDH 224, Fluid Comment 2 SEE COMMENT 08/12/23 13:10: Hgb 10.2 L, Hct 32.3 L 08/12/23 17:17: POC Glucose 117 H 08/13/23 05:05: WBC 16.7 H, RBC 3.32 L, Hgb 10.4 L, Hct 33.4 L, MCV 100.6 H, MCH 31.3, MCHC 31.1 L, RDW Std Deviation 54.2 H, RDW Coeff of Lola 14.8 H, Plt Count 267, MPV 9.4, Immature Gran % (Auto) 4.600 H, Neut % (Auto) 86.0 H, Lymph % (Auto) 4.9 L, [place] % (Auto) 3.7, Eos % (Auto) 0.2, Baso % (Auto) 0.6, Absolute Neuts (auto) 14.4 H, Absolute Lymphs (auto) 0.82 L, Nucleated RBC % 0, Sodium 136, Potassium 4.7, Chloride 100, Carbon Dioxide 26.0, Anion Gap 10, BUN 65 H, Creatinine 4.01 H, Estim Creat Clear Calc 12.08, Est GFR (MDRD) Af Amer 14 L, Est GFR (MDRD) Non-Af 12 L, BUN/Creatinine Ratio 16.2, Glucose 121 H, Calcium 9.5 Micro: Microbiology 08/12/23 11:00 Fluid - Thoracentesis Fluid Gram Stain - Final 08/07/23 15:10 Fluid - Thoracentesis Fluid Gram Stain - Final 08/07/23 15:10 Fluid - Thoracentesis Fluid Body Fluid Culture - Final No growth aerobically. 08/07/23 15:10 Fluid - Thoracentesis Fluid Anaerobic Culture - Preliminary No growth in 48 hours. 08/08/23 10:17 Sputum, Expectorated/Coughed Gram Stain - Final 08/08/23 10:17 Sputum, Expectorated/Coughed Respiratory Culture - Final Presumptive C albicans 08/09/23 04:59 Urine, Clean Catch Streptococcus pneumoniae Antigen (M - Final 08/09/23 04:59 Urine, Clean Catch Legionella Antigen - Final 08/07/23 21:25 Mucosa - Nasopharyngeal Respiratory Panel (PCR) - Final 08/07/23 11:31 Nasal Secretion SARS-CoV-2 & FLU Antigen (Rapid) - Final 08/07/23 11:31 Mucosa - Nasopharyngeal Rapid RSV (DFA) - Final ABG Data ABG results: ABG 08/12/23 08:58 Specimen Type SORAYA Sample Site L Brach O2 % 12.0 VBG pH 7.37 VBG pO2 47 H VBG HCO3 26 VBG Total CO2 28 VBG O2 Sat (Calc) 81 H VBG Base Excess 1 POC Mix VBG pCO2 Pt Tmp 45.4 O2 Delivery Device Not entered Radiography Diagnostic Testing: Radiology Impression Chest X-Ray 08/12/23 10:19 IMPRESSION: 1. No pneumothorax or acute cardiopulmonary pathology following thoracentesis. 2. Subsegmental atelectasis in the right lung zone, compressive atelectasis of left lung base and horizontal linear subsegmental atelectasis or scarring in the left midlung are unchanged. Electronically Signed: Reggie Uriarte MD at 14:00 EST , Rhythm Strip Rhythm Strip: Sinus Rhythm Rate: 64 Physical Exam Const Constitutional Narrative: Resting comfortably on my evaluation. HEENT normocephalic and head/scalp atraumatic HEENT Narrative: Airvo in place Eyes PERRL and conjunctivae normal Neck full ROM Resp Auscultation: wheezes expiratory wheezes (End); Negative for rales or rhonchi Percussion: dullness Cardio regular rate, regular rhythm, S1 normal heart sound, S2 normal heart sound, no murmurs, no rub and no gallops GI normal to inspection, nondistended, normoactive bowel sounds Extremity General Extremity: edema; Negative for clubbing Neuro no focal motor deficits Psych Mood & Affect: flat affect Charges/Coding Visit Charges Inpatient E&M: 01157 Subs Hosp L3
--- NOTE | 2023-08-13 08:49 | PN.HOSP_ITS ---
Subjective Subjective Doing well and respiratory status is stable while on Airvo. She did have a thoracentesis which was transudative and dialysis yesterday. She is negative almost 2 L of fluid Objective Data Objective Data Vital Signs: Vital Signs Temp Pulse Resp BP Pulse Ox O2 Del Method O2 Flow Rate 96.9 F L 56 L 18 140/59 H 90 Airvo 50 08/13/23 07:55 08/13/23 08:43 08/13/23 08:43 08/13/23 08:43 08/13/23 08:43 08/13/23 08:43 08/13/23 08:43 FiO2 50 08/13/23 08:28 Oxygen Flow Rate (L/min) 50 Oxygen Delivery Method Airvo Weight: 156 lb 1.396 oz Body Mass Index (BMI) 26.8 Intake & Output: Intake and Output for Last 24 Hours 08/12/23 08/13/23 08/14/23 03:59 03:59 03:59 Intake Total 725 / 725 510 / 510 350 / 350 Output Total 2750 / 2750 1450 / 1450 150 / 150 Balance -2025 / -2025 -940 / -940 200 / 200 Lab / Micro Data 08/13/23 05:05 08/13/23 05:05 Labs: Laboratory Results - last 24 hr 08/12/23 11:00: Fluid Source THORACENTESIS, Fluid Color YELLOW, Fluid Appearance CLOUDY, Fluid WBC 1.660, Fluid RBC 0.009, Fluid Tot Cell Count 1.757 H, Fld Polynuclear WBCs # 0.262, Fld Polynuclear WBCs % 15.8, Fluid Mononuclear WBCs 1.398, Fld Mononuclear WBCs % 84.2, Fluid Neutrophils 12, Fluid Lymphocytes 61, Fluid Monocytes 1, Fluid Macrophages 25, Fld Mesothelial Cells 1, Fl Pathologist Comment May follow, Fluid Glucose 121 H, Fluid Total Protein 2.8, Fluid LDH 224, Fluid Comment 2 SEE COMMENT 08/12/23 13:10: Hgb 10.2 L, Hct 32.3 L 08/12/23 17:17: POC Glucose 117 H 08/13/23 05:05: WBC 16.7 H, RBC 3.32 L, Hgb 10.4 L, Hct 33.4 L, MCV 100.6 H, MCH 31.3, MCHC 31.1 L, RDW Std Deviation 54.2 H, RDW Coeff of Lola 14.8 H, Plt Count 267, MPV 9.4, Immature Gran % (Auto) 4.600 H, Neut % (Auto) 86.0 H, Lymph % (Auto) 4.9 L, [place] % (Auto) 3.7, Eos % (Auto) 0.2, Baso % (Auto) 0.6, Absolute Neuts (auto) 14.4 H, Absolute Lymphs (auto) 0.82 L, Nucleated RBC % 0, Sodium 136, Potassium 4.7, Chloride 100, Carbon Dioxide 26.0, Anion Gap 10, BUN 65 H, Creatinine 4.01 H, Estim Creat Clear Calc 12.08, Est GFR (MDRD) Af Amer 14 L, Est GFR (MDRD) Non-Af 12 L, BUN/Creatinine Ratio 16.2, Glucose 121 H, Calcium 9.5 Micro: Microbiology 08/12/23 11:00 Fluid - Thoracentesis Fluid Gram Stain - Final 08/07/23 15:10 Fluid - Thoracentesis Fluid Gram Stain - Final 08/07/23 15:10 Fluid - Thoracentesis Fluid Body Fluid Culture - Final No growth aerobically. 08/07/23 15:10 Fluid - Thoracentesis Fluid Anaerobic Culture - Preliminary No growth in 48 hours. 08/08/23 10:17 Sputum, Expectorated/Coughed Gram Stain - Final 08/08/23 10:17 Sputum, Expectorated/Coughed Respiratory Culture - Final Presumptive C albicans 08/09/23 04:59 Urine, Clean Catch Streptococcus pneumoniae Antigen (M - Final 08/09/23 04:59 Urine, Clean Catch Legionella Antigen - Final 08/07/23 21:25 Mucosa - Nasopharyngeal Respiratory Panel (PCR) - Final 08/07/23 11:31 Nasal Secretion SARS-CoV-2 & FLU Antigen (Rapid) - Final 08/07/23 11:31 Mucosa - Nasopharyngeal Rapid RSV (DFA) - Final ABG Data ABG results: ABG 08/12/23 08:58 Specimen Type SORAYA Sample Site L Brach O2 % 12.0 VBG pH 7.37 VBG pO2 47 H VBG HCO3 26 VBG Total CO2 28 VBG O2 Sat (Calc) 81 H VBG Base Excess 1 POC Mix VBG pCO2 Pt Tmp 45.4 O2 Delivery Device Not entered Radiography Diagnostic Testing: Radiology Impression Chest X-Ray 08/12/23 10:19 IMPRESSION: 1. No pneumothorax or acute cardiopulmonary pathology following thoracentesis. 2. Subsegmental atelectasis in the right lung zone, compressive atelectasis of left lung base and horizontal linear subsegmental atelectasis or scarring in the left midlung are unchanged. Electronically Signed: Reggie Uriarte MD at 14:00 EST , Rhythm Strip Rhythm Strip: Sinus Rhythm Rate: 64 Physical Exam Narrative General: Alert, Oriented x3, Cooperative, No apparent distress HEENT: Atraumatic, PERRLA, EOMI, Normocephalic Oral: Moist Mucosa Neck: Supple, No JVD Lungs: Diminished, normal air movement, No rhonchi, wheeze, No rales Cardiovascular: Regular rate, Regular Rhythm, Normal S1, Normal S2, No murmurs Abdomen: Soft, Non Tender, Non-Distended, No Hepato-splenomegaly Extremities: Edema, Capillary Refill Less than 3 Seconds Skin: No rashes, No breakdown Musculoskeletal: No Tenderness to Palpation of Joints or Extremities Neurological: Cranial nerves II-XII grossly intact, Motor Exam 5/5 strength throughout, Sensory exam intact to light touch and pain Psych/Mental Status: Flat Assessment & Plan Assessment/Plan (1) Acute hypoxemic respiratory failure: PLAN: Plan 1. Acute on chronic hypoxic respiratory failure secondary to volume overload and bilateral pleural effusions/COPD exacerbation ? Status postthoracentesis ? Continue with Airvo ? Appreciate pulmonology's assistance ? Continue with dialysis ? Continue with Solu-Medrol, continue with Rocephin ? Per discussion with pulmonology there is feeling that she has possible trapped lung which is not typically due to a transudative effusion so may benefit from outpatient evaluation by thoracic surgery when stable 2. End-stage renal disease/anemia of chronic disease ? Stable, continue to monitor hemoglobin ? Continue with dialysis ? Appreciate nephrology's assistance 3. HTN/HLD/CAD ? Echo on this admission with an EF of 60% and no diastolic dysfunction ? Continue with her blood pressure medications ? We will monitor make adjustments as necessary ? Continue with diuresis 4. GERD ? Stable ? Continue with PPI 5. Anxiety/depression ? Stable ? Continue with Remeron and Zoloft DVT: Heparin Charges/Coding Visit Charges Inpatient E&M: 05863 Subs Hosp L2
--- NOTE | 2023-08-13 09:12 | NURSING ---
pt attempted to eat breakfast, but could not eat w/ airvo on. pt took removed airvo, but SPO2 dropped to 72%. pt advised to discontinue eating for now & resume airvo. pt expressed extreme frustration stating no one ever lets me eat . This RN advised that at this point in time her airway is most important & that respiratory may re-evaluate to find a solution. pt back on airvo Sao2 back up to 90% at this time
--- NOTE | 2023-08-13 10:36 | PCM.PN.REN ---
Subjective Subjective Patient is on dialysis, tolerating treatment well. Objective Data Objective Data Vital Signs: Vital Signs Temp Pulse Resp BP Pulse Ox O2 Del Method O2 Flow Rate 96.9 F L 51 L 13 132/58 H 95 Airvo 50 08/13/23 07:55 08/13/23 10:30 08/13/23 10:30 08/13/23 10:30 08/13/23 10:30 08/13/23 10:30 08/13/23 10:30 FiO2 50 08/13/23 08:28 Oxygen Flow Rate (L/min) 50 Oxygen Delivery Method Airvo Weight: 70.8 kg Body Mass Index (BMI) 26.8 Intake & Output: Intake and Output for Last 24 Hours 08/11/23 08/12/23 08/13/23 23:59 23:59 23:59 Intake Total 925 / 925 260 / 510 600 / 600 Output Total 2750 / 2750 1200 / 1450 400 / 400 Balance -1825 / -1825 -940 / -940 200 / 200 Lab / Micro Data 08/13/23 05:05 08/13/23 05:05 Labs: Laboratory Results - last 24 hr 08/12/23 11:00: Fluid Source THORACENTESIS, Fluid Color YELLOW, Fluid Appearance CLOUDY, Fluid WBC 1.660, Fluid RBC 0.009, Fluid Tot Cell Count 1.757 H, Fld Polynuclear WBCs # 0.262, Fld Polynuclear WBCs % 15.8, Fluid Mononuclear WBCs 1.398, Fld Mononuclear WBCs % 84.2, Fluid Neutrophils 12, Fluid Lymphocytes 61, Fluid Monocytes 1, Fluid Macrophages 25, Fld Mesothelial Cells 1, Fl Pathologist Comment May follow, Fluid Glucose 121 H, Fluid Total Protein 2.8, Fluid LDH 224, Fluid Comment 2 SEE COMMENT 08/12/23 13:10: Hgb 10.2 L, Hct 32.3 L 08/12/23 17:17: POC Glucose 117 H 08/13/23 05:05: WBC 16.7 H, RBC 3.32 L, Hgb 10.4 L, Hct 33.4 L, MCV 100.6 H, MCH 31.3, MCHC 31.1 L, RDW Std Deviation 54.2 H, RDW Coeff of Lola 14.8 H, Plt Count 267, MPV 9.4, Immature Gran % (Auto) 4.600 H, Neut % (Auto) 86.0 H, Lymph % (Auto) 4.9 L, [place] % (Auto) 3.7, Eos % (Auto) 0.2, Baso % (Auto) 0.6, Absolute Neuts (auto) 14.4 H, Absolute Lymphs (auto) 0.82 L, Nucleated RBC % 0, Sodium 136, Potassium 4.7, Chloride 100, Carbon Dioxide 26.0, Anion Gap 10, BUN 65 H, Creatinine 4.01 H, Estim Creat Clear Calc 12.08, Est GFR (MDRD) Af Amer 14 L, Est GFR (MDRD) Non-Af 12 L, BUN/Creatinine Ratio 16.2, Glucose 121 H, Calcium 9.5 Micro: Microbiology 08/07/23 15:10 Fluid - Thoracentesis Fluid Gram Stain - Final 08/07/23 15:10 Fluid - Thoracentesis Fluid Body Fluid Culture - Final No growth aerobically. 08/07/23 15:10 Fluid - Thoracentesis Fluid Anaerobic Culture - Final No growth in 5 days. 08/12/23 11:00 Fluid - Thoracentesis Fluid Gram Stain - Final 08/08/23 10:17 Sputum, Expectorated/Coughed Gram Stain - Final 08/08/23 10:17 Sputum, Expectorated/Coughed Respiratory Culture - Final Presumptive C albicans 08/09/23 04:59 Urine, Clean Catch Streptococcus pneumoniae Antigen (M - Final 08/09/23 04:59 Urine, Clean Catch Legionella Antigen - Final 08/07/23 21:25 Mucosa - Nasopharyngeal Respiratory Panel (PCR) - Final 08/07/23 11:31 Nasal Secretion SARS-CoV-2 & FLU Antigen (Rapid) - Final 08/07/23 11:31 Mucosa - Nasopharyngeal Rapid RSV (DFA) - Final Radiography Diagnostic Testing: Radiology Impression Chest X-Ray 08/12/23 10:19 IMPRESSION: 1. No pneumothorax or acute cardiopulmonary pathology following thoracentesis. 2. Subsegmental atelectasis in the right lung zone, compressive atelectasis of left lung base and horizontal linear subsegmental atelectasis or scarring in the left midlung are unchanged. Electronically Signed: Reggie Uriarte MD at 14:00 EST , Rhythm Strip Rhythm Strip: Sinus Rhythm Rate: 64 Physical Exam Narrative Alert, oriented S1, S2, RRR Diminished breath sounds with scattered rales Abdomen soft, nontender No pitting edema to her legs Left chest tunneled HD catheter accessed for hemodialysis Right upper arm AV fistula positive thrill and bruit Assessment & Plan Assessment/Plan (1) End-stage renal disease on hemodialysis: (2) Bilateral pleural effusion: (3) Anemia of chronic disease: PLAN: Plan - ESRD on hemodialysis Sunday schedule; patient undergoing hemodialysis/sequential treatment today over 3 hours and attempting 3 L fluid removal. Will plan for hemodialysis again tomorrow over 3-1/2 hours and attempt 3-4 L fluid removal as patient/blood pressure tolerates. Outpatient EDW was 74.5 kg. Weight this morning 70.8 kg. Quite possibly new lowered EDW around 65 kg. Status post left thoracentesis with 1.2 L off on 08/07, right thoracentesis with 1 L 08/12. Will send SEAN, p-ANCA and c-ANCA levels due to repeated significant effusions. Hold antihypertensives morning of dialysis. -Anemia of chronic disease; hemoglobin 10.4. Does not need SANTINO with dialysis today.
[2023-08-13] MEDS: Heparin 10,000 UNITS/10 ML Vial IV (10:57)
[2023-08-13] MEDS: LORazepam 2 MG/ML Syringe 1 MG IV (11:05)
[2023-08-13] MEDS: HYDROmorphone Inj 0.2 MG/ML SYRINGE 0.200000000000000011 MG IV ×2 (11:25→21:21)
[2023-08-13] MEDS: Furosemide 40 MG/4 ML Vial IV ×2 (11:26→16:40)
[2023-08-13] MEDS: Lidocaine 5% Patch 1 PATCH TOPICAL (11:26)
[2023-08-13] MEDS: SEVELAMER CARBONATE 800 MG TABLET PO ×2 (11:27→16:40)
[2023-08-13] MEDS: Carvedilol 25 MG Tablet PO ×2 (11:27→19:52)
[2023-08-13] MEDS: Pantoprazole Sodium 40 MG Tablet PO (11:27)
[2023-08-13] MEDS: Heparin Injection (Vial) 5,000 UNIT/ML VIAL 5000 UNIT SC ×2 (11:27→19:52)
[2023-08-13] MEDS: NIFEdipine 90 MG Tablet PO ×2 (11:28→19:53)
[2023-08-13] MEDS: Folic Acid/Vitamin B Comp W-C 1 Capsule 1 CAP PO (11:28)
[2023-08-13] MEDS: Sertraline 50 MG Tablet 25 MG PO (11:28)
[2023-08-13] MEDS: guaiFENesin 1,200 MG Tablet 1200 MG PO ×2 (11:29→19:53)
[2023-08-13] MEDS: Clopidogrel Bisulfate 75 MG Tablet PO (11:30)
[2023-08-13] MEDS: Aspirin E.C. 81 MG Tablet PO (11:39)
[2023-08-13] MEDS: Cholecalciferol (VIT D3) 25 MCG TABLET (1,000 UNITS) 50 MCG PO (11:39)
[2023-08-13 16:09] LABS: Amylase Body Fluid 29 U/L (.); pH, Body Fluid 11254 7.2 (Not Estab.)
[2023-08-13] MEDS: Atorvastatin Calcium 80 MG Tablet PO (19:53)
[2023-08-13] MEDS: Ceftriaxone 2 GM in 0.9% Normal Saline (50mL MB+) 50 ML IV (19:53)
[2023-08-13] MEDS: Mirtazapine 15 MG Tablet 7.5 MG PO (19:54)
[2023-08-13] MEDS: hydrALAZINE 20 MG/ML Vial IV (21:21)
[2023-08-13] MEDS: Enalaprilat 1.25 MG/ML Vial IV (22:31)
[2023-08-14] VITALS (44 sets, daily range): BP systolic 101–231; BP diastolic 44–98; PULSE 55–96; RESP 12–24; TEMP 36.2–36.8; O2SAT 30–98; BMI 25.9; BMI 25.2
[2023-08-14 04:09] LABS: Absolute Neutrophil Count 12.4 X10^3/uL (2.0-7.7); Basophil# 0.07 X10^3/uL; Basophil% 0.5 % (0-1); Eosinophil# 0.01 X10^3/uL; Eosinophils% 0.1 % (0-5); Hematocrit 33.1 % (37-47); Hemoglobin 10.4 g/dL (12.0-15.0); Lymphocyte % 6.2 % (19-41); Mean Corp Hgb Conc 31.4 g/dL (32-36); Mean Corpuscular Volume 98.8 fL (81-99); Mean Platelet Vol. 9.4 fl (6.2-12.0); Monocyte# 0.51 X10^3/uL; Monocyte% 3.5 % (0-10); NRBC Flagged by Analyzer 0 % (0-5); Neutrophil % 84.9 % (47-70); Platelet Count 291 K/mm3 (150-450); RBC Distribution Width SD 54.4 fl (35.1-43.9); Red Blood Count 3.35 M/mm3 (4.2-5.4); White Blood Count 14.6 K/mm3 (4.4-11.0)
[2023-08-14 04:36] LABS: Anion Gap 12 (5-15); BUN 86 mg/dL (7-18); BUN/Creat Ratio 17.5 RATIO (10-20); Chloride 100 mmol/L (98-107); Creatinine, Serum 4.91 mg/dL (0.55-1.02); EST Glomerular Filtration Rate 9 mL/min (>60); Est Glom Filt Rate - Afr Amer 11 mL/min (>60); Estimated Creatinine Clearance 9.86 ml/min; Glucose 106 mg/dL (74-106); Potassium 5.3 mmol/L (3.5-5.1); Sodium Level 136 mmol/L (136-145)
[2023-08-14] MEDS: hydrALAZINE 20 MG/ML Vial IV (05:03)
--- NOTE | 2023-08-14 06:25 | PN.CC_ITS ---
Assessment & Plan Assessment/Plan (1) Bilateral pleural effusion: (2) Acute hypoxemic respiratory failure: PLAN: Plan RECOMMENDATIONS: 1. Ongoing dialysis per nephrology recommendations. 2. Continue to wean supplemental oxygen to maintain saturations at or above 90%. 3. Antimicrobials to complete 7 days of therapy. 4. Continue bronchodilators and steroids. 5. Encourage incentive spirometer use and mobilize patient as tolerated. IMPRESSIONS: 1. Acute on chronic hypoxic respiratory failure secondary to fluid overload with bilateral pleural effusions Unclear if patient has an element of trapped lung. The patient has received bilateral thoracentesis with rapid reaccumulation and fluid studies consistent with a transudate. Continue to wean supplemental oxygen as tolerated. The patient is a smoker with some concern of COPD, so the use of Solu-Medrol and breathing treatments would be appropriate. The patient may ultimately require outpatient thoracic surgery evaluation. It is unclear if this lung can be recruited again as patient may have had fibrotic contraction secondary to persistent effusion. 2. End-stage renal disease on hemodialysis Continue ongoing hemodialysis support per nephrology recommendations. 3. Anemia of chronic disease/hypertension/CAD/history of tobacco abuse/anxiety Complicates care, management, recovery and prognosis. The patient does have a history of GI bleed in the past, but hemoglobins appear to be at her baseline. This note was generated with [employer] dictation software. It may contain incorrect words, spelling, and punctuation that were not noted in checking the note before signing. Subjective Subjective The patient was seen and examined at the bedside this morning. Events from the last 24 hours have been reviewed. The patient is currently afebrile, hemodynamically stable and maintaining appropriate oxygen saturations on 10 L/min high flow nasal cannula. No overnight issues were identified by the nursing staff. The patient is documented to be overall net -5.1 L for the hospitalization. Potassium is elevated at 5.3 with a creatinine of 4.9. Objective Data Objective Data The patient's most recent lab work, culture data and imaging studies have all been personally reviewed. Surface echocardiogram demonstrated an ejection fraction of 60%. Infectious workup has been unrevealing to date. Vital Signs: Vital Signs Temp Pulse Resp BP Pulse Ox O2 Del Method O2 Flow Rate 98.1 F 57 L 14 140/60 H 94 High Flow 10 08/14/23 06:00 08/14/23 06:00 08/14/23 06:00 08/14/23 06:00 08/14/23 06:00 08/14/23 06:00 08/14/23 06:00 FiO2 72 08/13/23 19:00 Oxygen Flow Rate (L/min) 10 Oxygen Delivery Method High Flow Weight: 152 lb 5.431 oz Body Mass Index (BMI) 25.9 Intake & Output: Intake and Output for Last 24 Hours 08/12/23 08/13/23 08/14/23 23:59 23:59 23:59 Intake Total 260 / 510 650 / 880 230 / 230 Output Total 1200 / 1450 3770 / 3870 125 / 125 Balance -940 / -940 -3120 / -2990 105 / 105 Lab / Micro Data Attestation: I reviewed the patient's lab results. 08/14/23 03:58 08/14/23 03:58 Labs: Laboratory Results - last 24 hr 08/07/23 15:10: Fluid pH 7.2, Fluid Amylase 29 08/14/23 03:58: WBC 14.6 H, RBC 3.35 L, Hgb 10.4 L, Hct 33.1 L, MCV 98.8, MCH 31.0, MCHC 31.4 L, RDW Std Deviation 54.4 H, RDW Coeff of Lola 15.0 H, Plt Count 291, MPV 9.4, Immature Gran % (Auto) 4.800 H, Neut % (Auto) 84.9 H, Lymph % (Auto) 6.2 L, [place] % (Auto) 3.5, Eos % (Auto) 0.1, Baso % (Auto) 0.5, Absolute Neuts (auto) 12.4 H, Absolute Lymphs (auto) 0.90, Nucleated RBC % 0, Sodium 136, Potassium 5.3 H, Chloride 100, Carbon Dioxide 24.0, Anion Gap 12, BUN 86 H, Creatinine 4.91 H, Estim Creat Clear Calc 9.86, Est GFR (MDRD) Af Amer 11 L, Est GFR (MDRD) Non-Af 9 L, BUN/Creatinine Ratio 17.5, Glucose 106, Calcium 9.0 Micro: Microbiology 08/12/23 11:00 Fluid - Thoracentesis Fluid Gram Stain - Final 08/12/23 11:00 Fluid - Thoracentesis Fluid Body Fluid Culture - Preliminary No growth-Final to follow 08/07/23 15:10 Fluid - Thoracentesis Fluid Gram Stain - Final 08/07/23 15:10 Fluid - Thoracentesis Fluid Body Fluid Culture - Final No growth aerobically. 08/07/23 15:10 Fluid - Thoracentesis Fluid Anaerobic Culture - Final No growth in 5 days. 08/08/23 10:17 Sputum, Expectorated/Coughed Gram Stain - Final 08/08/23 10:17 Sputum, Expectorated/Coughed Respiratory Culture - Final Presumptive C albicans 08/09/23 04:59 Urine, Clean Catch Streptococcus pneumoniae Antigen (M - Fin al 08/09/23 04:59 Urine, Clean Catch Legionella Antigen - Final 08/07/23 21:25 Mucosa - Nasopharyngeal Respiratory Panel (PCR) - Final 08/07/23 11:31 Nasal Secretion SARS-CoV-2 & FLU Antigen (Rapid) - Final 08/07/23 11:31 Mucosa - Nasopharyngeal Rapid RSV (DFA) - Final Radiography Diagnostic Testing: Radiology Impression Chest X-Ray 08/13/23 06:25 IMPRESSION: No interval change Electronically Signed: Raffi August MD at 10:58 EST , Rhythm Strip Rhythm Strip: Sinus Rhythm Rate: 64 Physical Exam Const alert and no apparent distress General Appearance: cooperative HEENT normocephalic, head/scalp atraumatic and moist oral mucous membranes Eyes PERRL, EOMs intact bilaterally and conjunctivae normal Neck supple General: trachea midline Chest inspection of chest normal Resp normal respiratory effort Auscultation: Negative for rales, rhonchi or wheezes Cardio regular rate, regular rhythm, S1 normal heart sound and S2 normal heart sound Heart Sounds: murmur GI normal to inspection, nondistended, normoactive bowel sounds Extremity General Extremity: edema; Negative for clubbing Skin no rashes or lesions noted Neuro CN's II-XII intact bilaterally, moves all extremities and no focal motor deficits Psych Mood & Affect: flat affect Charges/Coding Visit Charges Inpatient E&M: 19606 Subs Hosp L2
[2023-08-14] MEDS: Ipratropium/Albuterol Sulfate 3 ML AMPUL.NEB INHALATION ×2 (06:54→18:49)
[2023-08-14] MEDS: 0.9% Normal Saline 1,000 ML IV.SOLN. 1000 ML OPERA.SITE (07:53)
[2023-08-14] MEDS: PureFlow B 2K Dialysis Soln 1 BAG 6 BAG PF (07:53)
[2023-08-14] MEDS: 0.9% Saline Lock 10 ML Syringe IV (07:53)
[2023-08-14] MEDS: Clopidogrel Bisulfate 75 MG Tablet PO (08:50)
[2023-08-14] MEDS: Cholecalciferol (VIT D3) 25 MCG TABLET (1,000 UNITS) 50 MCG PO (08:50)
[2023-08-14] MEDS: Heparin Injection (Vial) 5,000 UNIT/ML VIAL 5000 UNIT SC ×2 (08:50→20:38)
[2023-08-14] MEDS: Sertraline 50 MG Tablet 25 MG PO (08:50)
[2023-08-14] MEDS: SEVELAMER CARBONATE 800 MG TABLET PO ×3 (08:50→16:26)
[2023-08-14] MEDS: Furosemide 40 MG/4 ML Vial IV ×2 (08:51→16:25)
[2023-08-14] MEDS: Carvedilol 25 MG Tablet PO ×2 (08:51→20:38)
[2023-08-14] MEDS: Aspirin E.C. 81 MG Tablet PO (08:51)
[2023-08-14] MEDS: guaiFENesin 1,200 MG Tablet 1200 MG PO ×2 (08:51→20:38)
[2023-08-14] MEDS: NIFEdipine 90 MG Tablet PO ×2 (08:51→20:38)
[2023-08-14] MEDS: Lidocaine 5% Patch 1 PATCH TOPICAL (08:51)
[2023-08-14] MEDS: Pantoprazole Sodium 40 MG Tablet PO (08:52)
[2023-08-14] MEDS: Folic Acid/Vitamin B Comp W-C 1 Capsule 1 CAP PO (08:52)
--- NOTE | 2023-08-14 09:42 | PCM.PN.HOSP ---
Subjective Subjective Doing well, breathing little bit better had 3 L taken off with dialysis yesterday Objective Data Objective Data Vital Signs: Vital Signs Temp Pulse Resp BP Pulse Ox O2 Del Method O2 Flow Rate 97.1 F L 63 18 110/55 L 87 High Flow 9 08/14/23 07:29 08/14/23 09:30 08/14/23 09:30 08/14/23 09:30 08/14/23 09:30 08/14/23 09:30 08/14/23 09:30 FiO2 72 08/13/23 19:00 Oxygen Flow Rate (L/min) 9 Oxygen Delivery Method High Flow Weight: 152 lb 5.431 oz Body Mass Index (BMI) 25.9 Intake & Output: Intake and Output for Last 24 Hours 08/13/23 08/14/23 08/15/23 03:59 03:59 03:59 Intake Total 510 / 510 630 / 630 0 / 0 Output Total 1450 / 1450 3620 / 3620 25 / 25 Balance -940 / -940 -2990 / -2990 -25 / -25 Lab / Micro Data 08/14/23 03:58 08/14/23 03:58 Labs: Laboratory Results - last 24 hr 08/07/23 15:10: Fluid pH 7.2, Fluid Amylase 29 08/14/23 03:58: WBC 14.6 H, RBC 3.35 L, Hgb 10.4 L, Hct 33.1 L, MCV 98.8, MCH 31.0, MCHC 31.4 L, RDW Std Deviation 54.4 H, RDW Coeff of Lola 15.0 H, Plt Count 291, MPV 9.4, Immature Gran % (Auto) 4.800 H, Neut % (Auto) 84.9 H, Lymph % (Auto) 6.2 L, [place] % (Auto) 3.5, Eos % (Auto) 0.1, Baso % (Auto) 0.5, Absolute Neuts (auto) 12.4 H, Absolute Lymphs (auto) 0.90, Nucleated RBC % 0, Sodium 136, Potassium 5.3 H, Chloride 100, Carbon Dioxide 24.0, Anion Gap 12, BUN 86 H, Creatinine 4.91 H, Estim Creat Clear Calc 9.86, Est GFR (MDRD) Af Amer 11 L, Est GFR (MDRD) Non-Af 9 L, BUN/Creatinine Ratio 17.5, Glucose 106, Calcium 9.0 Micro: Microbiology 08/12/23 11:00 Fluid - Thoracentesis Fluid Gram Stain - Final 08/12/23 11:00 Fluid - Thoracentesis Fluid Body Fluid Culture - Preliminary No growth-Final to follow 08/12/23 11:00 Fluid - Thoracentesis Fluid Anaerobic Culture - Preliminary No growth in 48 hours. 08/07/23 15:10 Fluid - Thoracentesis Fluid Gram Stain - Final 08/07/23 15:10 Fluid - Thoracentesis Fluid Body Fluid Culture - Final No growth aerobically. 08/07/23 15:10 Fluid - Thoracentesis Fluid Anaerobic Culture - Final No growth in 5 days. 08/08/23 10:17 Sputum, Expectorated/Coughed Gram Stain - Final 08/08/23 10:17 Sputum, Expectorated/Coughed Respiratory Culture - Final Presumptive C albicans 08/09/23 04:59 Urine, Clean Catch Streptococcus pneumoniae Antigen (M - Final 08/09/23 04:59 Urine, Clean Catch Legionella Antigen - Final 08/07/23 21:25 Mucosa - Nasopharyngeal Respiratory Panel (PCR) - Final 08/07/23 11:31 Nasal Secretion SARS-CoV-2 & FLU Antigen (Rapid) - Final 08/07/23 11:31 Mucosa - Nasopharyngeal Rapid RSV (DFA) - Final Radiography Diagnostic Testing: Radiology Impression Chest X-Ray 08/13/23 06:25 IMPRESSION: No interval change Electronically Signed: Raffi August MD at 10:58 EST Reading Location ID and State: [facility] / [place] , Service support , Rhythm Strip Rhythm Strip: Sinus Rhythm Rate: 64 Physical Exam Narrative General: Alert, Oriented x3, Cooperative, No apparent distress HEENT: Atraumatic, PERRLA, EOMI, Normocephalic Oral: Moist Mucosa Neck: Supple, No JVD Lungs: Diminished, normal air movement, No rhonchi, wheeze, No rales Cardiovascular: Regular rate, Regular Rhythm, Normal S1, Normal S2, No murmurs Abdomen: Soft, Non Tender, Non-Distended, No Hepato-splenomegaly Extremities: Edema, Capillary Refill Less than 3 Seconds Skin: No rashes, No breakdown Musculoskeletal: No Tenderness to Palpation of Joints or Extremities Neurological: Cranial nerves II-XII grossly intact, Motor Exam 5/5 strength throughout, Sensory exam intact to light touch and pain Psych/Mental Status: Flat Assessment & Plan Assessment/Plan (1) Acute hypoxemic respiratory failure: PLAN: Plan 1. Acute on chronic hypoxic respiratory failure secondary to volume overload and bilateral pleural effusions/COPD exacerbation ? Status postthoracentesis ? Continue with Airvo ? Appreciate pulmonology's assistance ? Continue with dialysis ? Continue with Solu-Medrol, continue with Rocephin ? Per discussion with pulmonology there is feeling that she has possible trapped lung which is not typically due to a transudative effusion so may benefit from outpatient evaluation by thoracic surgery when stable 2. End-stage renal disease/anemia of chronic disease ? Stable, continue to monitor hemoglobin ? Continue with dialysis ? Appreciate nephrology's assistance 3. HTN/HLD/CAD ? Echo on this admission with an EF of 60% and no diastolic dysfunction ? Continue with her blood pressure medications ? We will monitor make adjustments as necessary ? Continue with diuresis 4. GERD ? Stable ? Continue with PPI 5. Anxiety/depression ? Stable ? Continue with Remeron and Zoloft DVT: Heparin Charges/Coding Visit Charges Inpatient E&M: 24116 Subs Hosp L2
--- NOTE | 2023-08-14 10:07 | NURSING ---
pt c/o new onset numbness, cold in fingers of access arm. extremity feels cold to touch, consistent w/ Moseley Syndrome. fistula has good thrill/bruit. fistula has egg sized hematoma from previous infiltration back in May, pt thinks . currently using dialysis cvc for treatment
[2023-08-14] MEDS: Heparin 10,000 UNITS/10 ML Vial IV (10:42)
[2023-08-14 11:09] LABS: ANTINUCLEAR ANTIBODIES DIRECT Negative (Negative)
[2023-08-14] MEDS: Acetaminophen 325 MG Tablet 650 MG PO (11:52)
[2023-08-14] MEDS: oxyCODONE 5 MG Tablet PO ×2 (11:52→16:25)
[2023-08-14 12:25] LABS: Cytology, Body Fluid / CSF SEE PATHOLOGY REPORT
--- NOTE | 2023-08-14 13:36 | CASEMGMT ---
RN FREDDY Follow-up: This RN CM met with pt at bedside. Pt resting quietly with eyes closed, easily aroused. Discussed pt's discharge goal which pt states is to return home with her 9 cats and 1 dog. Pt states the person who is currently caring for them cannot care for them forever and that she does not have a choice but to return home to care for her animals. Pt states she attends hemodialysis for the past year at [facility] on T/H/S and states she has someone who transports her. Pt states she is not going to a SNF as she experienced an infection in her arm during a previous stay and she does not want to return. This RN CM encouraged pt to participate in therapy to improve her strength to help her reach her discharge goal of home and to care for her animals. Pt then states I couldn't care for them before. Why do you think I had someone coming by the house! Pt inconsistent in her view of her ability to care for self and return home. Continued to encourage pt to increase her mobility for increased strength. Pt upset and states I just want to sleep! Will continue to follow pt's progress in therapy for further determination of discharge disposition. Maxim Delgado RN ACM
--- NOTE | 2023-08-14 14:03 | PCM.PN.REN ---
Subjective Subjective Somewhat sleepy today Objective Data Objective Data Vital Signs: Vital Signs Temp Pulse Resp BP Pulse Ox O2 Del Method O2 Flow Rate 97.7 F L 59 L 20 H 141/55 H 93 Nasal Cannula 9 08/14/23 13:00 08/14/23 13:00 08/14/23 13:00 08/14/23 13:00 08/14/23 13:32 08/14/23 13:32 08/14/23 13:32 FiO2 72 08/13/23 19:00 Oxygen Flow Rate (L/min) 9 Oxygen Delivery Method Nasal Cannula Weight: 66.9 kg Body Mass Index (BMI) 25.2 Intake & Output: Intake and Output for Last 24 Hours 08/12/23 08/13/23 08/14/23 23:59 23:59 23:59 Intake Total 260 / 510 650 / 880 230 / 230 Output Total 1200 / 1450 3770 / 3870 2700 / 2700 Balance -940 / -940 -3120 / -2990 -2470 / -2470 Lab / Micro Data 08/14/23 03:58 08/14/23 03:58 Labs: Laboratory Results - last 24 hr 08/07/23 15:10: Fluid pH 7.2, Fluid Amylase 29 08/13/23 05:05: SEAN Screen Negative 08/14/23 03:58: WBC 14.6 H, RBC 3.35 L, Hgb 10.4 L, Hct 33.1 L, MCV 98.8, MCH 31.0, MCHC 31.4 L, RDW Std Deviation 54.4 H, RDW Coeff of Lola 15.0 H, Plt Count 291, MPV 9.4, Immature Gran % (Auto) 4.800 H, Neut % (Auto) 84.9 H, Lymph % (Auto) 6.2 L, [place] % (Auto) 3.5, Eos % (Auto) 0.1, Baso % (Auto) 0.5, Absolute Neuts (auto) 12.4 H, Absolute Lymphs (auto) 0.90, Nucleated RBC % 0, Sodium 136, Potassium 5.3 H, Chloride 100, Carbon Dioxide 24.0, Anion Gap 12, BUN 86 H, Creatinine 4.91 H, Estim Creat Clear Calc 9.86, Est GFR (MDRD) Af Amer 11 L, Est GFR (MDRD) Non-Af 9 L, BUN/Creatinine Ratio 17.5, Glucose 106, Calcium 9.0 Micro: Microbiology 08/12/23 11:00 Fluid - Thoracentesis Fluid Gram Stain - Final 08/12/23 11:00 Fluid - Thoracentesis Fluid Body Fluid Culture - Preliminary No growth-Final to follow 08/12/23 11:00 Fluid - Thoracentesis Fluid Anaerobic Culture - Preliminary No growth in 48 hours. 08/07/23 15:10 Fluid - Thoracentesis Fluid Gram Stain - Final 08/07/23 15:10 Fluid - Thoracentesis Fluid Body Fluid Culture - Final No growth aerobically. 08/07/23 15:10 Fluid - Thoracentesis Fluid Anaerobic Culture - Final No growth in 5 days. 08/08/23 10:17 Sputum, Expectorated/Coughed Gram Stain - Final 08/08/23 10:17 Sputum, Expectorated/Coughed Respiratory Culture - Final Presumptive C albicans 08/09/23 04:59 Urine, Clean Catch Streptococcus pneumoniae Antigen (M - Final 08/09/23 04:59 Urine, Clean Catch Legionella Antigen - Final 08/07/23 21:25 Mucosa - Nasopharyngeal Respiratory Panel (PCR) - Final 08/07/23 11:31 Nasal Secretion SARS-CoV-2 & FLU Antigen (Rapid) - Final 08/07/23 11:31 Mucosa - Nasopharyngeal Rapid RSV (DFA) - Final Rhythm Strip Rhythm Strip: Sinus Rhythm Rate: 64 Physical Exam Narrative Alert, oriented S1, S2, RRR Diminished breath sounds with scattered rales Abdomen soft, nontender No pitting edema to her legs Left chest tunneled HD catheter accessed for hemodialysis Right upper arm AV fistula positive thrill and bruit Assessment & Plan Assessment/Plan (1) End-stage renal disease on hemodialysis: (2) Bilateral pleural effusion: (3) Anemia of chronic disease: PLAN: Plan - ESRD on hemodialysis Sunday schedule; volume removal with dialysis today. Overall doing better. Chest x-ray shows improving effusions. Currently saturating well on nasal cannula. Serologies are pending. -Anemia of chronic disease; hemoglobin 10.4. Does not need SANTINO with dialysis today.
[2023-08-14 15:08] LABS: Cytoplasmic Ab (C-ANCA) <1:20 titer (Neg:<1:20); Perinuclear Ab (P-ANCA) <1:20 titer (Neg:<1:20)
[2023-08-14] MEDS: Senna/Docusate Sodium 1 Tablet 2 TABLET PO (16:25)
[2023-08-14] MEDS: Atorvastatin Calcium 80 MG Tablet PO (20:38)
[2023-08-14] MEDS: Mirtazapine 15 MG Tablet 7.5 MG PO (20:39)
[2023-08-15] VITALS (47 sets, daily range): BP systolic 88–199; BP diastolic 46–83; PULSE 55–72; RESP 13–24; TEMP 36–36.6; O2SAT 82–98; BMI 26.1; BMI 24.9
--- NOTE | 2023-08-15 03:31 | CPS ---
[0325] Water bag replaced to maintain humidity for pt. while wearing AirVo.
[2023-08-15] MEDS: hydrALAZINE 20 MG/ML Vial IV (05:22)
[2023-08-15 05:42] LABS: Absolute Lymphocyte Count 0.99 X10^3/uL (0.83-4.51); Absolute Neutrophil Count 14.1 X10^3/uL (2.0-7.7); Basophil# 0.08 X10^3/uL; Basophil% 0.5 % (0-1); Eosinophil# 0.01 X10^3/uL; Eosinophils% 0.1 % (0-5); Hematocrit 34.5 % (37-47); Hemoglobin 11.1 g/dL (12.0-15.0); Lymphocyte # 0.99 X10^3/ul (0.83-4.51); Mean Corp Hgb Conc 32.2 g/dL (32-36); Mean Corpuscular Hgb 31.8 pg (27.0-32.0); Mean Corpuscular Volume 98.9 fL (81-99); Mean Platelet Vol. 9.3 fl (6.2-12.0); Monocyte# 0.51 X10^3/uL; Monocyte% 3.1 % (0-10); NRBC Flagged by Analyzer 0 % (0-5); Neutrophil # 14.14 X10^3/uL (2.7-7.7); Neutrophil % 86.2 % (47-70); Platelet Count 269 K/mm3 (150-450); RBC Distribution Width CV 15.1 % (11.6-14.6); Red Blood Count 3.49 M/mm3 (4.2-5.4); White Blood Count 16.4 K/mm3 (4.4-11.0)
[2023-08-15 06:02] LABS: Anion Gap 9 (5-15); BUN 79 mg/dL (7-18); BUN/Creat Ratio 18.3 RATIO (10-20); Chloride 100 mmol/L (98-107); Creatinine, Serum 4.31 mg/dL (0.55-1.02); EST Glomerular Filtration Rate 11 mL/min (>60); Est Glom Filt Rate - Afr Amer 13 mL/min (>60); Estimated Creatinine Clearance 11.24 ml/min; Glucose 123 mg/dL (74-106); Potassium 4.9 mmol/L (3.5-5.1); Sodium Level 135 mmol/L (136-145)
[2023-08-15] MEDS: Acetaminophen 325 MG Tablet 650 MG PO ×2 (06:07→15:04)
[2023-08-15] MEDS: oxyCODONE 5 MG Tablet PO ×2 (06:08→15:04)
[2023-08-15] MEDS: Senna/Docusate Sodium 1 Tablet 2 TABLET PO (06:08)
[2023-08-15] MEDS: Ipratropium/Albuterol Sulfate 3 ML AMPUL.NEB INHALATION ×3 (07:13→19:05)
--- NOTE | 2023-08-15 07:49 | RAD_ITS ---
HISTORY: increased oxygen needs. TECHNIQUE: XR Chest 1 View. COMPARISON: 08/13/2023. FINDINGS: LINES/TUBES: Left internal jugular central venous catheter tip at the superior cavoatrial junction. CARDIOMEDIASTINAL BORDERS: Stable enlargement of the cardiac silhouette. LUNGS: Right upper lobe opacity unchanged. Increased bibasilar opacities. PLEURA: Mild pleural effusions, increased on the right. RAD/Chest 1 View (Portable) IMPRESSION: Mild pleural effusions with increased bibasilar atelectasis or pneumonia. Electronically Signed: Lizette Dunn MD at 8:10 EST ,
[2023-08-15] MEDS: 0.9% Normal Saline 1,000 ML IV.SOLN. 1000 ML OPERA.SITE (08:38)
[2023-08-15] MEDS: 0.9% Saline Lock 10 ML Syringe IV (08:39)
[2023-08-15 09:08] LABS: Albumin, Body Fluid 1.6 g/dL (Not Estab.)
--- NOTE | 2023-08-15 10:10 | PN.CC_ITS ---
Assessment & Plan Assessment/Plan (1) Bilateral pleural effusion: (2) Acute hypoxemic respiratory failure: PLAN: Plan RECOMMENDATIONS: 1. Ongoing dialysis per nephrology recommendations. 2. Continue to wean supplemental oxygen to maintain saturations at or above 90%. 3. Antimicrobials to complete 7 days of therapy. 4. Continue bronchodilators and wean steroids. 5. Encourage incentive spirometer use and mobilize patient as tolerated. IMPRESSIONS: 1. Acute on chronic hypoxic respiratory failure secondary to fluid overload with bilateral pleural effusions Unclear if patient has an element of trapped lung. The patient has received bilateral thoracentesis with rapid reaccumulation and fluid studies consistent with a transudate. Continue to wean supplemental oxygen as tolerated. The patient is a smoker with some concern of COPD, so the use of Solu-Medrol and breathing treatments would be appropriate. Patient will have the Solu-Medrol weaned today. The patient may ultimately require outpatient thoracic surgery evaluation, but surgical options would be very limited. It is unclear if this lung can be recruited again as patient may have had fibrotic contraction secondary to persistent effusion. Chest x-ray this morning shows stability to improvement compared to yesterday. If patient persists in high oxygen requirements, may need to evaluate for possible shunt 2. End-stage renal disease on hemodialysis Continue ongoing hemodialysis support per nephrology recommendations. 3. Anemia of chronic disease/hypertension/CAD/history of tobacco abuse/anxie ty Complicates care, management, recovery and prognosis. The patient does have a history of GI bleed in the past, but hemoglobins appear to be at her baseline. This note was generated with [employer] dictation software. It may contain incorrect words, spelling, and punctuation that were not noted in checking the note before signing. Subjective Subjective Patient did okay through the day yesterday. Patient was able to make it down to 6 L nasal cannula shortly after receiving hemodialysis. However, over the course of the evening patient became progressively hypoxic. Patient was requiring Airvo at 100% overnight. Patient is not very helpful in providing additional information. Patient did have a bowel movement overnight. Patient has been hypertensive, but some hypotension has been noted with volume removal with dialysis. Objective Data Objective Data Vital Signs: Vital Signs Temp Pulse Resp BP Pulse Ox O2 Del Method O2 Flow Rate 36.6 C 59 L 17 96/46 L 87 Airvo 60 08/15/23 00:00 08/15/23 10:00 08/15/23 10:00 08/15/23 10:00 08/15/23 10:00 08/15/23 10:00 08/15/23 10:00 FiO2 71 08/15/23 10:00 Oxygen Flow Rate (L/min) 60 Oxygen Delivery Method Airvo Weight: 69.3 kg Body Mass Index (BMI) 26.1 Intake & Output: Intake and Output for Last 24 Hours 08/13/23 08/14/23 08/15/23 23:59 23:59 23:59 Intake Total 650 / 880 230 / 230 Output Total 3770 / 3870 2700 / 2700 150 / 150 Balance -3120 / -2990 -2470 / -2470 -150 / -150 Lab / Micro Data Attestation: I reviewed the patient's lab results. 08/15/23 05:30 08/15/23 05:30 Labs: Laboratory Results - last 24 hr 08/12/23 11:00: Fluid Albumin 1.6 08/13/23 05:05: SEAN Screen Negative, [place]-1 Antibody Not Reportable, SS-A/Ro IgG Antibody Not Reportable, SS-B/La IgG Antibody Not Reportable, Sm (Starr) Antibody Not Reportable, HOT DIP PLATING SUPERVISOR Antibody Not Reportable, Scl-70 Scleroderma Ab Not Reportable, Double Strand DNA Ab Not Reportable, Centromere B Antibody Not Reportable 08/13/23 10:55: c-ANCA Antibody <1:20, Atypical p-ANCA <1:20, p-ANCA Antibody <1:20 08/15/23 05:30: WBC 16.4 H, RBC 3.49 L, Hgb 11.1 L, Hct 34.5 L, MCV 98.9, MCH 3 1.8, MCHC 32.2, RDW Std Deviation 54.0 H, RDW Coeff of Lola 15.1 H, Plt Count 269, MPV 9.3, Immature Gran % (Auto) 4.100 H, Neut % (Auto) 86.2 H, Lymph % (Auto) 6.0 L, [place] % (Auto) 3.1, Eos % (Auto) 0.1, Baso % (Auto) 0.5, Absolute Neuts (auto) 14.1 H, Absolute Lymphs (auto) 0.99, Nucleated RBC % 0, Sodium 135 L, Potassium 4.9, Chloride 100, Carbon Dioxide 26.0, Anion Gap 9, BUN 79 H, Creatinine 4.31 H, Estim Creat Clear Calc 11.24, Est GFR (MDRD) Af Amer 13 L, Est GFR (MDRD) Non-Af 11 L, BUN/Creatinine Ratio 18.3, Glucose 123 H, Calcium 9.0 Micro: Microbiology 08/12/23 11:00 Fluid - Thoracentesis Fluid Gram Stain - Final 08/12/23 11:00 Fluid - Thoracentesis Fluid Body Fluid Culture - Final Culture exhibits no growth. 08/12/23 11:00 Fluid - Thoracentesis Fluid Anaerobic Culture - Preliminary No growth in 48 hours. 08/07/23 15:10 Fluid - Thoracentesis Fluid Gram Stain - Final 08/07/23 15:10 Fluid - Thoracentesis Fluid Body Fluid Culture - Final No growth aerobically. 08/07/23 15:10 Fluid - Thoracentesis Fluid Anaerobic Culture - Final No growth in 5 days. 08/08/23 10:17 Sputum, Expectorated/Coughed Gram Stain - Final 08/08/23 10:17 Sputum, Expectorated/Coughed Respiratory Culture - Final Presumptive C albicans 08/09/23 04:59 Urine, Clean Catch Streptococcus pneumoniae Antigen (M - Final 08/09/23 04:59 Urine, Clean Catch Legionella Antigen - Final 08/07/23 21:25 Mucosa - Nasopharyngeal Respiratory Panel (PCR) - Final 08/07/23 11:31 Nasal Secretion SARS-CoV-2 & FLU Antigen (Rapid) - Final 08/07/23 11:31 Mucosa - Nasopharyngeal Rapid RSV (DFA) - Final Radiography Diagnostic Testing: Radiology Impression Chest X-Ray 08/15/23 07:49 IMPRESSION: Mild pleural effusions with increased bibasilar atelectasis or pneumonia. Electronically Signed: Lizette Dunn MD at 8:10 EST , Rhythm Strip Rhythm Strip: Sinus Rhythm Rate: 64 Physical Exam Const alert and no apparent distress Constitutional Narrative: Resting comfortably on my evaluation. Patient appears to be voluntarily not interacting General Appearance: cooperative HEENT normocephalic, head/scalp atraumatic and moist oral mucous membranes Eyes PERRL, EOMs intact bilaterally and conjunctivae normal Neck full ROM and supple General: trachea midline Chest inspection of chest normal Resp normal respiratory effort Auscultation: Negative for rales, rhonchi or wheezes Percussion: dullness Cardio regular rate, regular rhythm, S1 normal heart sound, S2 normal heart sound, no murmurs, no rub and no gallops Heart Sounds: murmur GI normal to inspection, nondistended, normoactive bowel sounds Extremity General Extremity: edema; Negative for clubbing Skin no rashes or lesions noted Neuro CN's II-XII intact bilaterally, moves all extremities and no focal motor deficits Psych Mood & Affect: flat affect Charges/Coding Visit Charges Inpatient E&M: 44902 Subs Hosp L3
--- NOTE | 2023-08-15 11:01 | PN.HOSP_ITS ---
Subjective Subjective No issues overnight, she still requiring Airvo and she had a chest x-ray today which actually shows improvement. Appreciate pulmonology assistance Objective Data Objective Data Vital Signs: Vital Signs Temp Pulse Resp BP Pulse Ox O2 Del Method O2 Flow Rate 97 F L 59 L 20 H 96/47 L 89 Airvo 60 08/15/23 08:00 08/15/23 10:59 08/15/23 10:59 08/15/23 10:59 08/15/23 10:59 08/15/23 10:59 08/15/23 10:59 FiO2 90 08/15/23 10:59 Oxygen Flow Rate (L/min) 60 Oxygen Delivery Method Airvo Weight: 152 lb 12.485 oz Body Mass Index (BMI) 26.1 Intake & Output: Intake and Output for Last 24 Hours 08/14/23 08/15/23 08/16/23 03:59 03:59 03:59 Intake Total 630 / 630 0 / 0 Output Total 3620 / 3620 2600 / 2600 150 / 150 Balance -2990 / -2990 -2600 / -2600 -150 / -150 Lab / Micro Data 08/15/23 05:30 08/15/23 05:30 Labs: Laboratory Results - last 24 hr 08/12/23 11:00: Fluid Albumin 1.6 08/13/23 05:05: SEAN Screen Negative, [place]-1 Antibody Not Reportable, SS-A/Ro IgG Antibody Not Reportable, SS-B/La IgG Antibody Not Reportable, Sm (Starr) Antibody Not Reportable, HEEL SEAT FILLER Antibody Not Reportable, Scl-70 Scleroderma Ab Not Reportable, Double Strand DNA Ab Not Reportable, Centromere B Antibody Not Reportable 08/13/23 10:55: c-ANCA Antibody <1:20, Atypical p-ANCA <1:20, p-ANCA Antibody <1:20 08/15/23 05:30: WBC 16.4 H, RBC 3.49 L, Hgb 11.1 L, Hct 34.5 L, MCV 98.9, MCH 31.8, MCHC 32.2, RDW Std Deviation 54.0 H, RDW Coeff of Lola 15.1 H, Plt Count 269, MPV 9.3, Immature Gran % (Auto) 4.100 H, Neut % (Auto) 86.2 H, Lymph % (Auto) 6.0 L, [place] % (Auto) 3.1, Eos % (Auto) 0.1, Baso % (Auto) 0.5, Absolute Neuts (auto) 14.1 H, Absolute Lymphs (auto) 0.99, Nucleated RBC % 0, Sodium 135 L, Potassium 4.9, Chloride 100, Carbon Dioxide 26.0, Anion Gap 9, BUN 79 H, Creatinine 4.31 H, Estim Creat Clear Calc 11.24, Est GFR (MDRD) Af Amer 13 L, Est GFR (MDRD) Non-Af 11 L, BUN/Creatinine Ratio 18.3, Glucose 123 H, Calcium 9.0 Micro: Microbiology 08/12/23 11:00 Fluid - Thoracentesis Fluid Gram Stain - Final 08/12/23 11:00 Fluid - Thoracentesis Fluid Body Fluid Culture - Final Culture exhibits no growth. 08/12/23 11:00 Fluid - Thoracentesis Fluid Anaerobic Culture - Preliminary No growth in 48 hours. 08/07/23 15:10 Fluid - Thoracentesis Fluid Gram Stain - Final 08/07/23 15:10 Fluid - Thoracentesis Fluid Body Fluid Culture - Final No growth aerobically. 08/07/23 15:10 Fluid - Thoracentesis Fluid Anaerobic Culture - Final No growth in 5 days. 08/08/23 10:17 Sputum, Expectorated/Coughed Gram Stain - Final 08/08/23 10:17 Sputum, Expectorated/Coughed Respiratory Culture - Final Presumptive C albicans 08/09/23 04:59 Urine, Clean Catch Streptococcus pneumoniae Antigen (M - Final 08/09/23 04:59 Urine, Clean Catch Legionella Antigen - Final 08/07/23 21:25 Mucosa - Nasopharyngeal Respiratory Panel (PCR) - Final 08/07/23 11:31 Nasal Secretion SARS-CoV-2 & FLU Antigen (Rapid) - Final 08/07/23 11:31 Mucosa - Nasopharyngeal Rapid RSV (DFA) - Final Radiography Diagnostic Testing: Radiology Impression Chest X-Ray 08/15/23 07:49 IMPRESSION: Mild pleural effusions with increased bibasilar atelectasis or pneumonia. Electronically Signed: Lizette Dunn MD at 8:10 EST , Rhythm Strip Rhythm Strip: Sinus Rhythm Rate: 64 Physical Exam Narrative General: Alert, Oriented x3, Cooperative, No apparent distress HEENT: Atraumatic, PERRLA, EOMI, Normocephalic Oral: Moist Mucosa Neck: Supple, No JVD Lungs: Diminished, normal air movement, No rhonchi, wheeze, No rales Cardiovascular: Regular rate, Regular Rhythm, Normal S1, Normal S2, No murmurs Abdomen: Soft, Non Tender, Non-Distended, No Hepato-splenomegaly Extremities: Edema, Capillary Refill Less than 3 Seconds Skin: No rashes, No breakdown Musculoskeletal: No Tenderness to Palpation of Joints or Extremities Neurological: Cranial nerves II-XII grossly intact, Motor Exam 5/5 strength throughout, Sensory exam intact to light touch and pain Psych/Mental Status: Flat Assessment & Plan Assessment/Plan (1) Acute hypoxemic respiratory failure: PLAN: Plan 1. Acute on chronic hypoxic respiratory failure secondary to volume overload and bilateral pleural effusions/COPD exacerbation ? Status postthoracentesis ? Continue with Airvo ? Appreciate pulmonology's assistance ? Continue with dialysis ? Continue with Solu-Medrol, she completed a course of Rocephin ? Per discussion with pulmonology there is feeling that she has possible trapped lung which is not typically due to a transudative effusion so may benefit from outpatient evaluation by thoracic surgery when stable 2. End-stage renal disease/anemia of chronic disease ? Stable, continue to monitor hemoglobin ? Continue with dialysis ? Appreciate nephrology's assistance 3. HTN/HLD/CAD ? Echo on this admission with an EF of 60% and no diastolic dysfunction ? Continue with her blood pressure medications ? We will monitor make adjustments as necessary ? Continue with diuresis 4. GERD ? Stable ? Continue with PPI 5. Anxiety/depression ? Stable ? Continue with Remeron and Zoloft DVT: Heparin Charges/Coding Visit Charges Inpatient E&M: 24993 Subs Hosp L2
[2023-08-15] MEDS: Heparin 10,000 UNITS/10 ML Vial IV (11:43)
[2023-08-15] MEDS: Sertraline 50 MG Tablet 25 MG PO (11:44)
[2023-08-15] MEDS: Pantoprazole Sodium 40 MG Tablet PO (11:44)
[2023-08-15] MEDS: Carvedilol 25 MG Tablet PO ×2 (11:45→20:47)
[2023-08-15] MEDS: Cholecalciferol (VIT D3) 25 MCG TABLET (1,000 UNITS) 50 MCG PO (11:45)
[2023-08-15] MEDS: Heparin Injection (Vial) 5,000 UNIT/ML VIAL 5000 UNIT SC ×2 (11:46→20:48)
[2023-08-15] MEDS: guaiFENesin 1,200 MG Tablet 1200 MG PO ×2 (11:46→20:48)
[2023-08-15] MEDS: Furosemide 40 MG/4 ML Vial IV ×2 (11:46→17:15)
[2023-08-15] MEDS: Aspirin E.C. 81 MG Tablet PO (11:46)
[2023-08-15] MEDS: Folic Acid/Vitamin B Comp W-C 1 Capsule 1 CAP PO (11:47)
[2023-08-15] MEDS: Clopidogrel Bisulfate 75 MG Tablet PO (11:47)
[2023-08-15] MEDS: NIFEdipine 90 MG Tablet PO ×2 (11:47→20:48)
[2023-08-15] MEDS: SEVELAMER CARBONATE 800 MG TABLET PO ×2 (11:47→17:15)
[2023-08-15] MEDS: Polyethylene Glycol 3350 17 GM PACKET PO (14:27)
--- NOTE | 2023-08-15 15:09 | PCM.PN.REN ---
Subjective Subjective Resting in bed. Denies any complaints. Reports breathing is better after dialysis today. Objective Data Objective Data Vital Signs: Vital Signs Temp Pulse Resp BP Pulse Ox O2 Del Method O2 Flow Rate 97.6 F L 60 20 H 136/64 H 92 Airvo 60 08/15/23 11:00 08/15/23 14:00 08/15/23 14:00 08/15/23 14:00 08/15/23 14:00 08/15/23 14:00 08/15/23 13:16 FiO2 90 08/15/23 14:00 Oxygen Flow Rate (L/min) 60 Oxygen Delivery Method Airvo Weight: 66.3 kg Body Mass Index (BMI) 24.9 Intake & Output: Intake and Output for Last 24 Hours 08/13/23 08/14/23 08/15/23 23:59 23:59 23:59 Intake Total 650 / 880 230 / 230 120 / 120 Output Total 3770 / 3870 2700 / 2700 3150 / 3150 Balance -3120 / -2990 -2470 / -2470 -3030 / -3030 Lab / Micro Data 08/15/23 05:30 08/15/23 05:30 Labs: Laboratory Results - last 24 hr 08/12/23 11:00: Fluid Albumin 1.6 08/13/23 05:05: CLIFTON-1 Antibody Not Reportable, SS-A/Ro IgG Antibody Not Reportable, SS-B/La IgG Antibody Not Reportable, Sm (Starr) Antibody Not Reportable, FLEXIBLE BABYSITTER Antibody Not Reportable, Scl-70 Scleroderma Ab Not Reportable, Double Strand DNA Ab Not Reportable, Centromere B Antibody Not Reportable 08/15/23 05:30: WBC 16.4 H, RBC 3.49 L, Hgb 11.1 L, Hct 34.5 L, MCV 98.9, MCH 31.8, MCHC 32.2, RDW Std Deviation 54.0 H, RDW Coeff of Lola 15.1 H, Plt Count 269, MPV 9.3, Immature Gran % (Auto) 4.100 H, Neut % (Auto) 86.2 H, Lymph % (Auto) 6.0 L, [place] % (Auto) 3.1, Eos % (Auto) 0.1, Baso % (Auto) 0.5, Absolute Neuts (auto) 14.1 H, Absolute Lymphs (auto) 0.99, Nucleated RBC % 0, Sodium 135 L, Potassium 4.9, Chloride 100, Carbon Dioxide 26.0, Anion Gap 9, BUN 79 H, Creatinine 4.31 H, Estim Creat Clear Calc 11.24, Est GFR (MDRD) Af Amer 13 L, Est GFR (MDRD) Non-Af 11 L, BUN/Creatinine Ratio 18.3, Glucose 123 H, Calcium 9.0 Micro: Microbiology 08/12/23 11:00 Fluid - Thoracentesis Fluid Gram Stain - Final 08/12/23 11:00 Fluid - Thoracentesis Fluid Body Fluid Culture - Final Culture exhibits no growth. 08/12/23 11:00 Fluid - Thoracentesis Fluid Anaerobic Culture - Preliminary No growth in 48 hours. 08/07/23 15:10 Fluid - Thoracentesis Fluid Gram Stain - Final 08/07/23 15:10 Fluid - Thoracentesis Fluid Body Fluid Culture - Final No growth aerobically. 08/07/23 15:10 Fluid - Thoracentesis Fluid Anaerobic Culture - Final No growth in 5 days. 08/08/23 10:17 Sputum, Expectorated/Coughed Gram Stain - Final 08/08/23 10:17 Sputum, Expectorated/Coughed Respiratory Culture - Final Presumptive C albicans 08/09/23 04:59 Urine, Clean Catch Streptococcus pneumoniae Antigen (M - Final 08/09/23 04:59 Urine, Clean Catch Legionella Antigen - Final 08/07/23 21:25 Mucosa - Nasopharyngeal Respiratory Panel (PCR) - Final 08/07/23 11:31 Nasal Secretion SARS-CoV-2 & FLU Antigen (Rapid) - Final 08/07/23 11:31 Mucosa - Nasopharyngeal Rapid RSV (DFA) - Final Radiography Diagnostic Testing: Radiology Impression Chest X-Ray 08/15/23 07:49 IMPRESSION: Mild pleural effusions with increased bibasilar atelectasis or pneumonia. Electronically Signed: Lizette Dunn MD at 8:10 EST , Rhythm Strip Rhythm Strip: Sinus Rhythm Rate: 64 Physical Exam Narrative Alert, oriented S1, S2, RRR Diminished breath sounds, coarse productive cough Abdomen soft, nontender No pitting edema to her legs Left chest tunneled HD catheter accessed for hemodialysis Right upper arm AV fistula positive thrill and bruit Assessment & Plan Assessment/Plan (1) End-stage renal disease on hemodialysis: (2) Bilateral pleural effusion: (3) Anemia of chronic disease: PLAN: Plan - ESRD on hemodialysis Sunday schedule; volume removal with dialysis again today. Tolerated around 3L fluid removal with HD today, will evaluate for dialysis/UF again tomorrow. continue lasix. Serologies; p-ANCA, c-ANCA and SEAN screen are all negative -Anemia of chronic disease; patient receives SANTINO with dialysis. Will monitor hemoglobin trends
[2023-08-15] MEDS: Mag Hydrox/Al Hydrox/Simeth 30 ML UDC 15 ML PO (15:27)
[2023-08-15] MEDS: Mirtazapine 15 MG Tablet 7.5 MG PO (20:48)
[2023-08-15] MEDS: Atorvastatin Calcium 80 MG Tablet PO (21:20)
[2023-08-16] VITALS (49 sets, daily range): BP systolic 76–228; BP diastolic 43–72; PULSE 51–600; RESP 13–23; TEMP 36–36.6; O2SAT 3–97; BMI 25.9; BMI 24.8
--- NOTE | 2023-08-16 04:47 | CPS ---
Water bag changed
[2023-08-16 07:04] LABS: Absolute Lymphocyte Count 1.28 X10^3/uL (0.83-4.51); Absolute Neutrophil Count 12.5 X10^3/uL (2.0-7.7); Basophil# 0.05 X10^3/uL; Basophil% 0.3 % (0-1); Eosinophil# 0.01 X10^3/uL; Eosinophils% 0.1 % (0-5); Hematocrit 36.9 % (37-47); Hemoglobin 11.9 g/dL (12.0-15.0); Lymphocyte # 1.28 X10^3/ul (0.83-4.51); Lymphocyte % 8.7 % (19-41); Mean Corp Hgb Conc 32.2 g/dL (32-36); Mean Corpuscular Hgb 31.5 pg (27.0-32.0); Mean Corpuscular Volume 97.6 fL (81-99); Mean Platelet Vol. 9.8 fl (6.2-12.0); Monocyte% 4.1 % (0-10); NRBC Flagged by Analyzer 0 % (0-5); Neutrophil # 12.45 X10^3/uL (2.7-7.7); Neutrophil % 84.1 % (47-70); POSITIVE COUNT YES; Platelet Count 223 K/mm3 (150-450); RBC Distribution Width SD 53.6 fl (35.1-43.9); Red Blood Count 3.78 M/mm3 (4.2-5.4); White Blood Count 14.8 K/mm3 (4.4-11.0)
[2023-08-16] MEDS: Ipratropium/Albuterol Sulfate 3 ML AMPUL.NEB INHALATION ×3 (07:12→19:08)
[2023-08-16 07:28] LABS: Anion Gap 11 (5-15); BUN 101 mg/dL (7-18); BUN/Creat Ratio 18.3 RATIO (10-20); Calcium,Total 9.8 mg/dL (8.5-10.1); Chloride 97 mmol/L (98-107); Creatinine, Serum 5.53 mg/dL (0.55-1.02); EST Glomerular Filtration Rate 8 mL/min (>60); Est Glom Filt Rate - Afr Amer 10 mL/min (>60); Estimated Creatinine Clearance 8.76 ml/min; Glucose 119 mg/dL (74-106); Potassium 5.5 mmol/L (3.5-5.1); Sodium Level 132 mmol/L (136-145)
[2023-08-16 07:31] LABS: Differential Indicated SCAN CRITERIA MET
[2023-08-16] MEDS: PureFlow B 2K Dialysis Soln 1 BAG 6 BAG PF (08:08)
[2023-08-16] MEDS: 0.9% Normal Saline 1,000 ML IV.SOLN. 1000 ML OPERA.SITE (08:08)
[2023-08-16] MEDS: 0.9% Saline Lock 10 ML Syringe IV ×3 (08:09→23:35)
[2023-08-16 08:36] LABS: Differential Comment SCANNED; Platelet Estimate ADEQUATE (ADEQ)
[2023-08-16] MEDS: Midodrine HCl 5 MG Tablet 10 MG PO (08:40)
[2023-08-16] MEDS: SEVELAMER CARBONATE 800 MG TABLET PO ×3 (08:55→15:50)
[2023-08-16] MEDS: oxyCODONE 5 MG Tablet PO ×2 (09:26→15:50)
[2023-08-16] MEDS: Cholecalciferol (VIT D3) 25 MCG TABLET (1,000 UNITS) 50 MCG PO (09:27)
[2023-08-16] MEDS: Clopidogrel Bisulfate 75 MG Tablet PO (09:27)
[2023-08-16] MEDS: Pantoprazole Sodium 40 MG Tablet PO (09:27)
[2023-08-16] MEDS: Folic Acid/Vitamin B Comp W-C 1 Capsule 1 CAP PO (09:27)
[2023-08-16] MEDS: guaiFENesin 1,200 MG Tablet 1200 MG PO ×2 (09:28→20:36)
[2023-08-16] MEDS: Sertraline 50 MG Tablet 25 MG PO (09:28)
--- NOTE | 2023-08-16 09:41 | ECHOL_ITS ---
Reason For Study: EVAL FOR INTRACARDIAC SHUNT Procedure This was a limited 2D transthoracic echocardiogram. Exam performed portable in ICU/CCU. Left Ventricle Normal LV size. Mild concentric left ventricular hypertrophy. The estimated ejection fraction is 60 %. Unable to assess diastolic function based on available data. Right Ventricle Normal RV size. Normal systolic function. Atria The left and right atria are normal. Bubble contrast study negative for right to left interatrial shunt. Mitral Valve Moderate mitral annular calcification. The mitral valve chordae are thickened and/or calcified. Tricuspid Valve Normal tricuspid valve. Aortic Valve Trisinus/trileaflet aortic valve. Mild focal aortic valve calcification. Pulmonic Valve Normal pulmonic valve. Great Vessels Normal aortic root. Pericardium/Pleural No pericardial effusion. Left pleural effusion. Medication Performed a rapid injection of agitated mix of 9 cc saline and 1cc air to assess for atrial septal defect. MMode/2D Measurements & Calculations LVIDd: 4.6 cm IVSd: 1.3 cm Ao root diam: 3.2 cm LVIDs: 3.1 cm LVPWd: 1.2 cm FS: 33.7 % LAV(MOD-bp): 61.8 ml LVAd ap4: 32.4 cm2 LVAd ap2: 24.4 cm2 LAV(MOD-bp) Indexed: 35.5 ml/m2 LVLd ap4: 8.1 cm LVLd ap2: 8.5 cm LAV(MOD-sp2): 56.4 ml EDV(MOD-sp4): 107.0 ml EDV(MOD-sp2): 60.3 ml LAV(MOD-sp4): 56.3 ml EDV(sp4-el): 109.0 ml EDV(sp2-el): 59.9 ml LVAs ap4: 18.8 cm2 LVAs ap2: 12.3 cm2 LVLs ap4: 7.1 cm LVLs ap2: 6.0 cm ESV(MOD-sp4): 43.7 ml ESV(MOD-sp2): 22.3 ml ESV(sp4-el): 42.6 ml ESV(sp2-el): 21.4 ml EF(MOD-sp4): 59.2 % EF(MOD-sp2): 63.0 % EF(sp4-el): 60.9 % SV(MOD-sp4): 63.4 ml SV(MOD-sp2): 38.0 ml SV(sp4-el): 66.4 ml LA A4 area: 20.7 cm2 LA dimension(2D): 5.0 cm RA A4 area: 18.4 cm2 ECHO/Echo, Limited Study Interpretation Summary The estimated ejection fraction is 60 %. Mild concentric left ventricular hypertrophy. Bubble contrast study negative for right to left interatrial shunt. Full echo done 08/07/23. Ordering Physician: Chris Licea Referring Physician: Elvin Becerra Performed By: Nohemi Hassan RDCS, RVT
--- NOTE | 2023-08-16 09:41 | PCM.PN.INT ---
Assessment & Plan Assessment/Plan (1) Bilateral pleural effusion: (2) Acute hypoxemic respiratory failure: PLAN: Plan RECOMMENDATIONS: 1. Ongoing dialysis per nephrology recommendations. 2. Continue to wean supplemental oxygen to maintain saturations at or above 90%. 3. Antimicrobials to complete 7 days of therapy. 4. Continue bronchodilators and steroids. 5. Encourage incentive spirometer use and mobilize patient as tolerated. 6. Perform therapeutic thoracentesis on right IMPRESSIONS: 1. Acute on chronic hypoxic respiratory failure secondary to fluid overload with bilateral pleural effusions Unclear if patient has an element of trapped lung. The patient has received bilateral thoracentesis with rapid reaccumulation and fluid studies consistent with a transudate. Continue to wean supplemental oxygen as tolerated. The patient is a smoker with some concern of COPD, so the use of Solu-Medrol and breathing treatments would be appropriate. Chest x-ray shows persistence of right pleural effusion. Patient with shunt like physiology. Will add a limited echocardiogram to evaluate for intracardiac shunt. Patient will also be ordered a thoracentesis as patient may have an intrapulmonary shunt associated with collapse. 2. End-stage renal disease on hemodialysis Continue ongoing hemodialysis support per nephrology recommendations. Patient has had over 12 L removed over the course of the hospitalization and still has a pleural effusion. Pleural effusion was transudate, but patient is starting to have more hypotension associated with volume removal. Patient does not have significant edema, so it is unclear if fluid overload is the reason for persistence and hypoxia. Nephrology is following. 3. Anemia of chronic disease/hypertension/CAD/history of tobacco abuse/anxiety Complicates care, management, recovery and prognosis. The patient does have a history of GI bleed in the past, but hemoglobins appear to be at her baseline. Patient's anemia does not appear to be significant to explain patient's symptoms This note was generated with [employer] dictation software. It may contain incorrect words, spelling, and punctuation that were not noted in checking the note before signing. Subjective Subjective Patient did okay overnight. Patient continues to require significant amount of supplemental oxygen to maintain saturations. Patient continues to have significant removal with dialysis, but is not affecting her oxygen status in the last 24 hours. Patient also has had some lower blood pressures associated with volume removal. Patient is not reporting any pain. Objective Data Objective Data Vital Signs: Vital Signs Temp Pulse Resp BP Pulse Ox O2 Del Method O2 Flow Rate 36.6 C 56 L 18 94/50 L 80 Airvo 60 08/16/23 08:00 08/16/23 09:24 08/16/23 09:24 08/16/23 09:24 08/16/23 09:24 08/16/23 09:24 08/16/23 09:24 FiO2 100 08/16/23 09:24 Oxygen Flow Rate (L/min) 60 Oxygen Delivery Method Airvo Weight: 69 kg Body Mass Index (BMI) 25.9 Intake & Output: Intake and Output for Last 24 Hours 08/14/23 08/15/23 08/16/23 23:59 23:59 23:59 Intake Total 230 / 230 860 / 860 100 / 100 Output Total 2700 / 2700 3150 / 3150 Balance -2470 / -2470 -2290 / -2290 100 / 100 Lab / Micro Data Attestation: I reviewed the patient's lab results. 08/16/23 06:50 08/16/23 06:50 Labs: Laboratory Results - last 24 hr 08/16/23 06:50: WBC 14.8 H, RBC 3.78 L, Hgb 11.9 L, Hct 36.9 L, MCV 97.6, MCH 31.5, MCHC 32.2, RDW Std Deviation 53.6 H, RDW Coeff of Lola 15.0 H, Plt Count 223, MPV 9.8, Immature Gran % (Auto) 2.700 H, Neut % (Auto) 84.1 H, Lymph % (Auto) 8.7 L, [place] % (Auto) 4.1, Eos % (Auto) 0.1, Baso % (Auto) 0.3, Absolute Neuts (auto) 12.5 H, Absolute Lymphs (auto) 1.28, Nucleated RBC % 0, Differential Comment SCANNED, Platelet Estimate ADEQUATE, Sodium 132 L, Potassium 5.5 H, Chloride 97 L, Carbon Dioxide 24.0, Anion Gap 11, BUN 101 H*, Creatinine 5.53 H, Estim Creat Clear Calc 8.76, Est GFR (MDRD) Af Amer 10 L, Est GFR (MDRD) Non-Af 8 L, BUN/Creatinine Ratio 18.3, Glucose 119 H, Calcium 9.8 Micro: Microbiology 08/12/23 11:00 Fluid - Thoracentesis Fluid Gram Stain - Final 08/12/23 11:00 Fluid - Thoracentesis Fluid Body Fluid Culture - Final Culture exhibits no growth. 08/12/23 11:00 Fluid - Thoracentesis Fluid Anaerobic Culture - Preliminary No growth in 48 hours. 08/07/23 15:10 Fluid - Thoracentesis Fluid Gram Stain - Final 08/07/23 15:10 Fluid - Thoracentesis Fluid Body Fluid Culture - Final No growth aerobically. 08/07/23 15:10 Fluid - Thoracentesis Fluid Anaerobic Culture - Final No growth in 5 days. 08/08/23 10:17 Sputum, Expectorated/Coughed Gram Stain - Final 08/08/23 10:17 Sputum, Expectorated/Coughed Respiratory Culture - Final Presumptive C albicans 08/09/23 04:59 Urine, Clean Catch Streptococcus pneumoniae Antigen (M - Final 08/09/23 04:59 Urine, Clean Catch Legionella Antigen - Final 08/07/23 21:25 Mucosa - Nasopharyngeal Respiratory Panel (PCR) - Final 08/07/23 11:31 Nasal Secretion SARS-CoV-2 & FLU Antigen (Rapid) - Final 08/07/23 11:31 Mucosa - Nasopharyngeal Rapid RSV (DFA) - Final Rhythm Strip Rhythm Strip: Sinus Rhythm Rate: 54 Physical Exam Const alert and no apparent distress Constitutional Narrative: Resting comfortably on my evaluation. Patient appears to be voluntarily not interacting General Appearance: cooperative HEENT normocephalic, head/scalp atraumatic and moist oral mucous membranes Eyes PERRL, EOMs intact bilaterally and conjunctivae normal Neck full ROM and supple General: trachea midline Chest inspection of chest normal Resp normal respiratory effort Auscultation: Negative for rales, rhonchi or wheezes Percussion: dullness Mid: right and Lower: right Cardio regular rate, regular rhythm, S1 normal heart sound, S2 normal heart sound, no rub and no gallops Heart Sounds: murmur GI normal to inspection, nondistended, normoactive bowel sounds Extremity General Extremity: Negative for clubbing or edema Skin no rashes or lesions noted Neuro CN's II-XII intact bilaterally, moves all extremities and no focal motor deficits Psych Mood & Affect: flat affect Charges/Coding Visit Charges Inpatient E&M: 60322 Subs Hosp L3
[2023-08-16 10:25] LABS: Pathologist Comment/Body Fluid Reviewed
[2023-08-16] MEDS: Furosemide 40 MG/4 ML Vial IV ×2 (10:30→20:34)
[2023-08-16] MEDS: Aspirin E.C. 81 MG Tablet PO (10:30)
[2023-08-16] MEDS: Heparin Injection (Vial) 5,000 UNIT/ML VIAL 5000 UNIT SC ×2 (10:35→20:36)
--- NOTE | 2023-08-16 10:46 | PN.RENAL_ITS ---
Subjective Subjective Seen and examined on dialysis. Currently tolerating treatment well. Dialyzing over 4 hours and had been attempting around 3 or more liter fluid removal but due to symptomatic hypotension goal fluid removal was backed off. Objective Data Objective Data Vital Signs: Vital Signs Temp Pulse Resp BP Pulse Ox O2 Del Method O2 Flow Rate 97.8 F 53 L 17 129/49 H 89 Airvo 60 08/16/23 08:00 08/16/23 10:42 08/16/23 10:42 08/16/23 10:42 08/16/23 10:42 08/16/23 10:42 08/16/23 10:00 FiO2 91 08/16/23 10:00 Oxygen Flow Rate (L/min) 60 Oxygen Delivery Method Airvo Weight: 69 kg Body Mass Index (BMI) 25.9 Intake & Output: Intake and Output for Last 24 Hours 08/14/23 08/15/23 08/16/23 23:59 23:59 23:59 Intake Total 230 / 230 860 / 860 100 / 100 Output Total 2700 / 2700 3150 / 3150 Balance -2470 / -2470 -2290 / -2290 100 / 100 Lab / Micro Data 08/16/23 06:50 08/16/23 06:50 Labs: Laboratory Results - last 24 hr 08/12/23 11:00: Fl Pathologist Comment Reviewed 08/16/23 06:50: WBC 14.8 H, RBC 3.78 L, Hgb 11.9 L, Hct 36.9 L, MCV 97.6, MCH 31.5, MCHC 32.2, RDW Std Deviation 53.6 H, RDW Coeff of Lola 15.0 H, Plt Count 223, MPV 9.8, Immature Gran % (Auto) 2.700 H, Neut % (Auto) 84.1 H, Lymph % (Auto) 8.7 L, [place] % (Auto) 4.1, Eos % (Auto) 0.1, Baso % (Auto) 0.3, Absolute Neuts (auto) 12.5 H, Absolute Lymphs (auto) 1.28, Nucleated RBC % 0, Differential Comment SCANNED, Platelet Estimate ADEQUATE, Sodium 132 L, Potassium 5.5 H, Chloride 97 L, Carbon Dioxide 24.0, Anion Gap 11, BUN 101 H*, Creatinine 5.53 H, Estim Creat Clear Calc 8.76, Est GFR (MDRD) Af Amer 10 L, Est GFR (MDRD) Non-Af 8 L, BUN/Creatinine Ratio 18.3, Glucose 119 H, Calcium 9.8 Micro: Microbiology 08/12/23 11:00 Fluid - Thoracentesis Fluid Gram Stain - Final 08/12/23 11:00 Fluid - Thoracentesis Fluid Body Fluid Culture - Final Culture exhibits no growth. 08/12/23 11:00 Fluid - Thoracentesis Fluid Anaerobic Culture - Preliminary No growth in 48 hours. 08/07/23 15:10 Fluid - Thoracentesis Fluid Gram Stain - Final 08/07/23 15:10 Fluid - Thoracentesis Fluid Body Fluid Culture - Final No growth aerobically. 08/07/23 15:10 Fluid - Thoracentesis Fluid Anaerobic Culture - Final No growth in 5 days. 08/08/23 10:17 Sputum, Expectorated/Coughed Gram Stain - Final 08/08/23 10:17 Sputum, Expectorated/Coughed Respiratory Culture - Final Presumptive C albicans 08/09/23 04:59 Urine, Clean Catch Streptococcus pneumoniae Antigen (M - Fi nal 08/09/23 04:59 Urine, Clean Catch Legionella Antigen - Final 08/07/23 21:25 Mucosa - Nasopharyngeal Respiratory Panel (PCR) - Final 08/07/23 11:31 Nasal Secretion SARS-CoV-2 & FLU Antigen (Rapid) - Final 08/07/23 11:31 Mucosa - Nasopharyngeal Rapid RSV (DFA) - Final Rhythm Strip Rhythm Strip: Sinus Rhythm Rate: 54 Physical Exam Narrative Alert, oriented S1, S2, RRR Diminished breath sounds, coarse productive cough Abdomen soft, nontender No pitting edema to her legs Left chest tunneled HD catheter accessed for hemodialysis Right upper arm AV fistula positive thrill and bruit Assessment & Plan Assessment/Plan (1) End-stage renal disease on hemodialysis: (2) Bilateral pleural effusion: (3) Anemia of chronic disease: PLAN: Plan - ESRD on hemodialysis Sunday schedule; hemodialysis today over 4 hours on 2K bath. Had been attempting around 3 to 4 L fluid removal with HD today however due to symptomatic hypotension goal fluid removal was backed off. Will not plan for HD/sequential treatment tomorrow unless acute need arises. Likely next hemodialysis session will be on Sunday. Outpatient EDW was 74.5 kg. Continue lasix. Serologies; p-ANCA, c-ANCA and SEAN screen are all negative -Mild hyperkalemia likely secondary to dietary indiscretion. Continue on renal diet. Lasix. -Anemia of chronic disease; Hemoglobin 11.9 today. No need for SANTINO today. -Patient continues to require significant amount of supplemental oxygen. Echo and thoracentesis today. On IV steroids, breathing treatments
[2023-08-16] MEDS: Heparin 10,000 UNITS/10 ML Vial IV (11:37)
--- NOTE | 2023-08-16 12:38 | CASEMGMT ---
JOHAN CM NOTE: Call received from Ermelinda pt's transition care management specialist from [facility] requesting an update on how pt is doing. Update given. She states she will f/u again w/CM at a later date. Josef JENSEN RN CM
[2023-08-16] MEDS: Lidocaine 2% (20 ml mdv) 20 ML Vial INFILT (14:58)
--- NOTE | 2023-08-16 15:14 | PN.HOSP_ITS ---
Subjective Subjective No issues overnight, she still requiring oxygen via Airvo Objective Data Objective Data Vital Signs: Vital Signs Temp Pulse Resp BP Pulse Ox O2 Del Method O2 Flow Rate 97.8 F 67 15 136/57 H 90 Airvo 60 08/16/23 12:00 08/16/23 14:01 08/16/23 13:22 08/16/23 14:01 08/16/23 13:00 08/16/23 14:01 08/16/23 14:01 FiO2 90 08/16/23 14:01 Oxygen Flow Rate (L/min) 60 Oxygen Delivery Method Airvo Weight: 145 lb 8.081 oz Body Mass Index (BMI) 24.8 Intake & Output: Intake and Output for Last 24 Hours 08/15/23 08/16/23 08/17/23 03:59 03:59 03:59 Intake Total 0 / 0 860 / 860 300 / 300 Output Total 2600 / 2600 3150 / 3150 2120 / 2120 Balance -2600 / -2600 -2290 / -2290 -1820 / -1820 Lab / Micro Data 08/16/23 06:50 08/16/23 06:50 Labs: Laboratory Results - last 24 hr 08/12/23 11:00: Fl Pathologist Comment Reviewed 08/16/23 06:50: WBC 14.8 H, RBC 3.78 L, Hgb 11.9 L, Hct 36.9 L, MCV 97.6, MCH 31.5, MCHC 32.2, RDW Std Deviation 53.6 H, RDW Coeff of Lola 15.0 H, Plt Count 223, MPV 9.8, Immature Gran % (Auto) 2.700 H, Neut % (Auto) 84.1 H, Lymph % (Auto) 8.7 L, [place] % (Auto) 4.1, Eos % (Auto) 0.1, Baso % (Auto) 0.3, Absolute Neuts (auto) 12.5 H, Absolute Lymphs (auto) 1.28, Nucleated RBC % 0, Differential Comment SCANNED, Platelet Estimate ADEQUATE, Sodium 132 L, Potassium 5.5 H, Chloride 97 L, Carbon Dioxide 24.0, Anion Gap 11, BUN 101 H*, Creatinine 5.53 H, Estim Creat Clear Calc 8.76, Est GFR (MDRD) Af Amer 10 L, Est GFR (MDRD) Non-Af 8 L, BUN/Creatinine Ratio 18.3, Glucose 119 H, Calcium 9.8 Micro: Microbiology 08/12/23 11:00 Fluid - Thoracentesis Fluid Gram Stain - Final 08/12/23 11:00 Fluid - Thoracentesis Fluid Body Fluid Culture - Final Culture exhibits no growth. 08/12/23 11:00 Fluid - Thoracentesis Fluid Anaerobic Culture - Preliminary No growth in 48 hours. 08/07/23 15:10 Fluid - Thoracentesis Fluid Gram Stain - Final 08/07/23 15:10 Fluid - Thoracentesis Fluid Body Fluid Culture - Final No growth aerobically. 08/07/23 15:10 Fluid - Thoracentesis Fluid Anaerobic Culture - Final No growth in 5 days. 08/08/23 10:17 Sputum, Expectorated/Coughed Gram Stain - Final 08/08/23 10:17 Sputum, Expectorated/Coughed Respiratory Culture - Final Presumptive C albicans 08/09/23 04:59 Urine, Clean Catch Streptococcus pneumoniae Antigen (M - Final 08/09/23 04:59 Urine, Clean Catch Legionella Antigen - Final 08/07/23 21:25 Mucosa - Nasopharyngeal Respiratory Panel (PCR) - Final 08/07/23 11:31 Nasal Secretion SARS-CoV-2 & FLU Antigen (Rapid) - Final 08/07/23 11:31 Mucosa - Nasopharyngeal Rapid RSV (DFA) - Final Rhythm Strip Rhythm Strip: Sinus Rhythm Rate: 54 Physical Exam Narrative General: Alert, Oriented x3, Cooperative, No apparent distress HEENT: Atraumatic, PERRLA, EOMI, Normocephalic Oral: Moist Mucosa Neck: Supple, No JVD Lungs: Diminished, normal air movement, No rhonchi, no wheeze, No rales Cardiovascular: Regular rate, Regular Rhythm, Normal S1, Normal S2, No murmurs Abdomen: Soft, Non Tender, Non-Distended, No Hepato-splenomegaly Extremities: Edema, Capillary Refill Less than 3 Seconds Skin: No rashes, No breakdown Musculoskeletal: No Tenderness to Palpation of Joints or Extremities Neurological: Cranial nerves II-XII grossly intact, Motor Exam 5/5 strength throughout, Sensory exam intact to light touch and pain Psych/Mental Status: Flat Assessment & Plan Assessment/Plan (1) Acute hypoxemic respiratory failure: PLAN: Plan 1. Acute on chronic hypoxic respiratory failure secondary to volume overload and bilateral pleural effusions/COPD exacerbation ? Continue with Airvo ? Appreciate pulmonology's assistance ? Continue with dialysis, plan for thoracentesis today ? Continue with Solu-Medrol, she completed a course of Rocephin ? Per discussion with pulmonology there is feeling that she has possible trapped lung which is not typically due to a transudative effusion so may benefit from outpatient evaluation by thoracic surgery when stable 2. End-stage renal disease/anemia of chronic disease ? Stable, continue to monitor hemoglobin ? Continue with dialysis ? Appreciate nephrology's assistance 3. HTN/HLD/CAD ? Echo on this admission with an EF of 60% and no diastolic dysfunction ? Continue with her blood pressure medications ? We will monitor make adjustments as necessary ? Continue with diuresis 4. GERD ? Stable ? Continue with PPI 5. Anxiety/depression ? Stable ? Continue with Remeron and Zoloft DVT: Heparin Charges/Coding Visit Charges Inpatient E&M: 28717 Subs Hosp L2
--- NOTE | 2023-08-16 15:20 | RAD_ITS ---
STUDY: X-RAY CHEST REASON FOR EXAM: Female, 63 years old. Post thoracentesis -- portable. will be doing thora in icu room. TECHNIQUE: AP inspiration and expiration views. COMPARISON: Comparison is made with prior study dated August 15, 2023. FINDINGS: The patient is status post left thoracentesis. No evidence of pneumothorax. RAD/Chest Insp/Exp 2 View IMPRESSION: Status post left thoracentesis. No evidence of pneumothorax. Electronically Signed: Richard Ndiaye MD at 15:35 EST ,
--- NOTE | 2023-08-16 15:37 | PRO.PCM_ITS ---
Procedure Report Date of Procedure: 08/16/23 Assessment & Plan Assessment/Plan (1) Bilateral pleural effusion: PLAN: Plan PROCEDURE: Ultrasound Guided Thoracentesis ORDERING PROVIDER: Dr. Chris Licea INDICATION: Female, 63 years old. Recurrent bilateral pleural effusion. PROVIDER: MARJAN Maldonado PROCEDURE: The risks, benefits, and alternatives to the procedure were explained to the patient. The specific risks of bleeding, infection, and pneumothorax requiring chest tube insertion were discussed and accepted. Written informed consent was obtained. The patient was placed in the sitting, upright position. Ultrasonographic evaluation of the bilateral lower pleural spaces was carried out. An adequate pocket was identified in the left lower pleural space.The overlying skin was prepped and draped in sterile fashion. 2% lidocaine was administered subcutaneously for local anesthesia. Under ultrasound guidance, a 5-[place] thoracentesis needle/catheter system was advanced into the left posterior lower pleural fluid collection. 290 ml of clear yellow colored fluid was drained. The catheter was removed, and a sterile dressing was applied. The patient tolerated the procedure well. A chest x-ray was ordered. IMPRESSION: Successful ultrasound-guided thoracentesis of left pleural effusion Procedures Radiology Radiology US Procedures: 53838 Thoracentesis
[2023-08-16] MEDS: Atorvastatin Calcium 80 MG Tablet PO (20:36)
[2023-08-16] MEDS: Carvedilol 25 MG Tablet PO (20:37)
[2023-08-16] MEDS: NIFEdipine 90 MG Tablet PO (20:38)
[2023-08-16] MEDS: Mirtazapine 15 MG Tablet 7.5 MG PO (20:38)
[2023-08-17] VITALS (36 sets, daily range): BP systolic 99–188; BP diastolic 48–100; PULSE 58–88; RESP 15–25; TEMP 35.9–37.1; O2SAT 88–97; BMI 25.4
--- NOTE | 2023-08-17 01:10 | CPS ---
Changed water bag on AirVo
[2023-08-17] MEDS: 0.9% Saline Lock 10 ML Syringe IV ×2 (05:41→08:39)
[2023-08-17] MEDS: hydrALAZINE 20 MG/ML Vial IV ×2 (05:41→18:10)
[2023-08-17 06:17] LABS: Albumin, Serum 2.6 g/dL (3.2-5.0); BUN 71 mg/dL (7-18); BUN/Creat Ratio 18.8 RATIO (10-20); Calcium,Total 9.2 mg/dL (8.5-10.1); Chloride 104 mmol/L (98-107); Creatinine, Serum 3.77 mg/dL (0.55-1.02); EST Glomerular Filtration Rate 13 mL/min (>60); Est Glom Filt Rate - Afr Amer 15 mL/min (>60); Estimated Creatinine Clearance 12.85 ml/min; Glucose 148 mg/dL (74-106); Potassium 4.7 mmol/L (3.5-5.1); Sodium Level 137 mmol/L (136-145)
--- NOTE | 2023-08-17 06:58 | PCM.PN.INT ---
Assessment & Plan Assessment/Plan (1) Bilateral pleural effusion: (2) Acute hypoxemic respiratory failure: PLAN: Plan RECOMMENDATIONS: 1. No dialysis planned for today 2. Continue to wean supplemental oxygen to maintain saturations at or above 90%. 3. Completed antibiotic course 4. Continue bronchodilators, but transition to p.o. steroids 5. Encourage incentive spirometer use and mobilize patient as tolerated. 6. Perform therapeutic thoracentesis on right IMPRESSIONS: 1. Acute on chronic hypoxic respiratory failure secondary to fluid overload with bilateral pleural effusions Unclear if patient has an element of trapped lung. The patient has received bilateral thoracentesis with rapid reaccumulation and fluid studies consistent with a transudate. Continue to wean supplemental oxygen as tolerated. The patient is a smoker with some concern of COPD, so the use of Solu-Medrol and breathing treatments would be appropriate. Chest x-ray shows persistence of right pleural effusion. Patient with shunt like physiology. Limited echocardiogram was negative for intracardiac shunt. Patient will also be ordered a thoracentesis on the right as patient may have an intrapulmonary shunt associated with collapse. 2. End-stage renal disease on hemodialysis Continue ongoing hemodialysis support per nephrology recommendations. Patient has had over 12 L removed over the course of the hospitalization and still has a pleural effusion. Pleural effusion was transudate, but patient is starting to have more hypotension associated with volume removal. Patient does not have significant edema, so it is unclear if fluid overload is the reason for persistence and hypoxia. Nephrology is following. 3. Anemia of chronic disease/hypertension/CAD/history of tobacco abuse/anxiety Complicates care, management, recovery and prognosis. The patient does have a history of GI bleed in the past, but hemoglobins appear to be at her baseline. Patient's anemia does not appear to be significant to explain patient's symptoms This note was generated with [employer] dictation software. It may contain incorrect words, spelling, and punctuation that were not noted in checking the note before signing. Subjective Subjective Patient did okay overnight. Patient did have some hypotension associated with dialysis, but tolerated it without pressors. Patient continues to require significant FiO2 to maintain saturations. Patient reports she feels she needs to have a bowel movement, but otherwise is denying any abdominal pain. Objective Data Objective Data Patient did have a thoracentesis on the left yesterday with approximately 250 cc removed. Vital Signs: Vital Signs Temp Pulse Resp BP Pulse Ox O2 Del Method O2 Flow Rate 36.4 C L 68 19 H 143/55 H 93 Airvo 60 08/17/23 06:00 08/17/23 06:00 08/17/23 06:00 08/17/23 06:00 08/17/23 06:00 08/17/23 06:00 08/16/23 17:00 FiO2 80 08/17/23 06:00 Oxygen Flow Rate (L/min) 60 Oxygen Delivery Method Airvo Weight: 67.7 kg Body Mass Index (BMI) 25.4 Intake & Output: Intake and Output for Last 24 Hours 08/15/23 08/16/23 08/17/23 23:59 23:59 23:59 Intake Total 860 / 860 600 / 600 200 / 200 Output Total 3150 / 3150 2460 / 2460 Balance -2290 / -2290 -1860 / -1860 200 / 200 Lab / Micro Data 08/16/23 06:50 08/17/23 05:35 Labs: Laboratory Results - last 24 hr 08/12/23 11:00: Fl Pathologist Comment Reviewed 08/16/23 06:50: WBC 14.8 H, RBC 3.78 L, Hgb 11.9 L, Hct 36.9 L, MCV 97.6, MCH 31.5, MCHC 32.2, RDW Std Deviation 53.6 H, RDW Coeff of Lola 15.0 H, Plt Count 223, MPV 9.8, Immature Gran % (Auto) 2.700 H, Neut % (Auto) 84.1 H, Lymph % (Auto) 8.7 L, Hitchcock % (Auto) 4.1, Eos % (Auto) 0.1, Baso % (Auto) 0.3, Absolute Neuts (auto) 12.5 H, Absolute Lymphs (auto) 1.28, Nucleated RBC % 0, Differential Comment SCANNED, Platelet Estimate ADEQUATE, Sodium 132 L, Potassium 5.5 H, Chloride 97 L, Carbon Dioxide 24.0, Anion Gap 11, BUN 101 H*, Creatinine 5.53 H, Estim Creat Clear Calc 8.76, Est GFR (MDRD) Af Amer 10 L, Est GFR (MDRD) Non-Af 8 L, BUN/Creatinine Ratio 18.3, Glucose 119 H, Calcium 9.8 08/17/23 05:35: Sodium 137, Potassium 4.7, Chloride 104, Carbon Dioxide 24.0, BUN 71 H, Creatinine 3.77 H, Estim Creat Clear Calc 12.85, Est GFR (MDRD) Af Amer 15 L, Est GFR (MDRD) Non-Af 13 L, BUN/Creatinine Ratio 18.8, Glucose 148 H, Calcium 9.2, Phosphorus 5.0 H, Albumin 2.6 L Micro: Microbiology 08/12/23 11:00 Fluid - Thoracentesis Fluid Gram Stain - Final 08/12/23 11:00 Fluid - Thoracentesis Fluid Body Fluid Culture - Final Culture exhibits no growth. 08/12/23 11:00 Fluid - Thoracentesis Fluid Anaerobic Culture - Preliminary No growth in 48 hours. 08/07/23 15:10 Fluid - Thoracentesis Fluid Gram Stain - Final 08/07/23 15:10 Fluid - Thoracentesis Fluid Body Fluid Culture - Final No growth aerobically. 08/07/23 15:10 Fluid - Thoracentesis Fluid Anaerobic Culture - Final No growth in 5 days. 08/08/23 10:17 Sputum, Expectorated/Coughed Gram Stain - Final 08/08/23 10:17 Sputum, Expectorated/Coughed Respiratory Culture - Final Presumptive C albicans 08/09/23 04:59 Urine, Clean Catch Streptococcus pneumoniae Antigen (M - Final 08/09/23 04:59 Urine, Clean Catch Legionella Antigen - Final 08/07/23 21:25 Mucosa - Nasopharyngeal Respiratory Panel (PCR) - Final 08/07/23 11:31 Nasal Secretion SARS-CoV-2 & FLU Antigen (Rapid) - Final 08/07/23 11:31 Mucosa - Nasopharyngeal Rapid RSV (DFA) - Final Radiography Diagnostic Testing: Radiology Impression Echocardiogram 08/16/23 09:41 Interpretation Summary The estimated ejection fraction is 60 %. Mild concentric left ventricular hypertrophy. Bubble contrast study negative for right to left interatrial shunt. Full echo done 08/07/23. Ordering Physician: Chris Licea Referring Physician: lEvin Becerra Performed By: Nohemi Hassan, KEARACS, RVT Chest X-Ray 08/16/23 15:20 IMPRESSION: Status post left thoracentesis. No evidence of pneumothorax. Electronically Signed: Richard Ndiaye MD at 15:35 EST , Rhythm Strip Rhythm Strip: Sinus Rhythm Rate: 68 Physical Exam Const alert and no apparent distress Constitutional Narrative: Resting comfortably on my evaluation. No conversational dyspnea General Appearance: cooperative HEENT normocephalic, head/scalp atraumatic and moist oral mucous membranes Eyes PERRL, EOMs intact bilaterally and conjunctivae normal Neck full ROM and supple General: trachea midline Chest inspection of chest normal Resp normal respiratory effort Auscultation: Negative for rales, rhonchi or wheezes Percussion: dullness Mid: right and Lower: right Cardio regular rate, regular rhythm, S1 normal heart sound, S2 normal heart sound, no rub and no gallops Heart Sounds: murmur GI normal to inspection, nondistended, normoactive bowel sounds Extremity General Extremity: Negative for clubbing or edema Skin no rashes or lesions noted Neuro CN's II-XII intact bilaterally, moves all extremities and no focal motor deficits Psych Mood & Affect: flat affect Charges/Coding Visit Charges Inpatient E&M: 96268 Subs Hosp L3
[2023-08-17] MEDS: Ipratropium/Albuterol Sulfate 3 ML AMPUL.NEB INHALATION ×3 (07:02→19:05)
[2023-08-17] MEDS: Heparin Injection (Vial) 5,000 UNIT/ML VIAL 5000 UNIT SC ×2 (08:30→20:46)
[2023-08-17] MEDS: NIFEdipine 90 MG Tablet PO ×2 (08:30→20:45)
[2023-08-17] MEDS: guaiFENesin 1,200 MG Tablet 1200 MG PO ×2 (08:32→20:45)
[2023-08-17] MEDS: predniSONE 20 MG Tablet 40 MG PO (08:32)
[2023-08-17] MEDS: SEVELAMER CARBONATE 800 MG TABLET PO ×3 (08:33→17:21)
[2023-08-17] MEDS: Cholecalciferol (VIT D3) 25 MCG TABLET (1,000 UNITS) 50 MCG PO (08:33)
[2023-08-17] MEDS: Carvedilol 25 MG Tablet PO ×2 (08:33→20:45)
[2023-08-17] MEDS: Pantoprazole Sodium 40 MG Tablet PO (08:34)
[2023-08-17] MEDS: Sertraline 50 MG Tablet 25 MG PO (08:34)
[2023-08-17] MEDS: Clopidogrel Bisulfate 75 MG Tablet PO (08:35)
[2023-08-17] MEDS: Folic Acid/Vitamin B Comp W-C 1 Capsule 1 CAP PO (08:35)
[2023-08-17] MEDS: Furosemide 40 MG/4 ML Vial IV ×2 (08:38→17:21)
--- NOTE | 2023-08-17 09:06 | PCM.PN.REN ---
Documented by User: BRIT Sexton 08/17/23 09:12 Subjective Subjective Sitting up in bed eating breakfast. Still requiring high flow O2, will desat quickly when O2 removed. Objective Data Objective Data Vital Signs: Vital Signs Temp Pulse Resp BP Pulse Ox O2 Del Method O2 Flow Rate 97.6 F L 66 19 H 143/55 H 93 Airvo 60 08/17/23 06:00 08/17/23 07:04 08/17/23 07:04 08/17/23 06:00 08/17/23 07:04 08/17/23 06:00 08/16/23 17:00 FiO2 80 08/17/23 07:04 Oxygen Flow Rate (L/min) 60 Oxygen Delivery Method Airvo Weight: 67.7 kg Body Mass Index (BMI) 25.4 Intake & Output: Intake and Output for Last 24 Hours 08/15/23 08/16/23 08/17/23 23:59 23:59 23:59 Intake Total 860 / 860 600 / 600 200 / 200 Output Total 3150 / 3150 2460 / 2460 Balance -2290 / -2290 -1860 / -1860 200 / 200 Lab / Micro Data 08/16/23 06:50 08/17/23 05:35 Labs: Laboratory Results - last 24 hr 08/12/23 11:00: Fl Pathologist Comment Reviewed, Miscellaneous Cytology SEE PATHOLOGY REPORT 08/17/23 05:35: Sodium 137, Potassium 4.7, Chloride 104, Carbon Dioxide 24.0, BUN 71 H, Creatinine 3.77 H, Estim Creat Clear Calc 12.85, Est GFR (MDRD) Af Amer 15 L, Est GFR (MDRD) Non-Af 13 L, BUN/Creatinine Ratio 18.8, Glucose 148 H, Calcium 9.2, Phosphorus 5.0 H, Albumin 2.6 L Micro: Microbiology 08/12/23 11:00 Fluid - Thoracentesis Fluid Gram Stain - Final 08/12/23 11:00 Fluid - Thoracentesis Fluid Body Fluid Culture - Final Culture exhibits no growth. 08/12/23 11:00 Fluid - Thoracentesis Fluid Anaerobic Culture - Preliminary No growth in 48 hours. 08/07/23 15:10 Fluid - Thoracentesis Fluid Gram Stain - Final 08/07/23 15:10 Fluid - Thoracentesis Fluid Body Fluid Culture - Final No growth aerobically. 08/07/23 15:10 Fluid - Thoracentesis Fluid Anaerobic Culture - Final No growth in 5 days. 08/08/23 10:17 Sputum, Expectorated/Coughed Gram Stain - Final 08/08/23 10:17 Sputum, Expectorated/Coughed Respiratory Culture - Final Presumptive C albicans 08/09/23 04:59 Urine, Clean Catch Streptococcus pneumoniae Antigen (M - Final 08/09/23 04:59 Urine, Clean Catch Legionella Antigen - Final 08/07/23 21:25 Mucosa - Nasopharyngeal Respiratory Panel (PCR) - Final 08/07/23 11:31 Nasal Secretion SARS-CoV-2 & FLU Antigen (Rapid) - Final 08/07/23 11:31 Mucosa - Nasopharyngeal Rapid RSV (DFA) - Final Radiography Diagnostic Testing: Radiology Impression Echocardiogram 08/16/23 09:41 Interpretation Summary The estimated ejection fraction is 60 %. Mild concentric left ventricular hypertrophy. Bubble contrast study negative for right to left interatrial shunt. Full echo done 08/07/23. Ordering Physician: Chris Licea Referring Physician: Elvin Becerra Performed By: Nohemi Hassan, LIZETT, RVT Chest X-Ray 08/16/23 15:20 IMPRESSION: Status post left thoracentesis. No evidence of pneumothorax. Electronically Signed: Richard Ndiaye MD at 15:35 EST , Rhythm Strip Rhythm Strip: Sinus Rhythm Rate: 68 Physical Exam Narrative Alert, oriented S1, S2, RRR Diminished breath sounds, coarse productive cough Abdomen soft, nontender No pitting edema to her legs Left chest tunneled HD catheter Right upper arm AV fistula positive thrill and bruit Assessment & Plan Assessment/Plan (1) End-stage renal disease on hemodialysis: (2) Bilateral pleural effusion: (3) Anemia of chronic disease: PLAN: Plan - ESRD on hemodialysis Sunday schedule; no acute indication for renal placement therapy or sequential treatment today. Patient tolerated dialysis yesterday over 4 hours but only able to tolerate around 1 L fluid removal. We had been attempting around 3 to 4 L fluid removal however due to symptomatic hypotension goal fluid removal was backed off. Plan for hemodialysis tomorrow. Per cumulative I&O she is net -12 L, weight down 10 kg this hospitalization. Outpatient EDW was 74.5 kg. Continue lasix. Serologies; p-ANCA, c-ANCA and SEAN screen are all negative -Mild hyperkalemia likely secondary to dietary indiscretion, resolved with hemodialysis. Continue on renal diet. Lasix. -Anemia of chronic disease; Hemoglobin 11.9. No need for SANTINO at this time. -Patient continues to require significant amount of supplemental oxygen. Patient had left thoracentesis with 290 mL fluid removal yesterday. Plan for right thoracentesis today. On IV steroids, breathing treatments. Echo bubble contrast study negative for right to left interatrial shunt, EF 60% Documented by User: Dr. Adrian Vazquez MD 08/17/23 15:19 Objective Data Lab / Micro Data 08/16/23 06:50 08/17/23 05:35 Assessment & Plan Assessment/Plan (1) End-stage renal disease on hemodialysis: (2) Bilateral pleural effusion: (3) Anemia of chronic disease: PLAN: Plan - ESRD on hemodialysis Sunday schedule; no acute indication for renal placement therapy or sequential treatment today. Patient tolerated dialysis yesterday over 4 hours but only able to tolerate around 1 L fluid removal. We had been attempting around 3 to 4 L fluid removal however due to symptomatic hypotension goal fluid removal was backed off. Plan for hemodialysis tomorrow. Per cumulative I&O she is net -12 L, weight down 10 kg this hospitalization. Outpatient EDW was 74.5 kg. Continue lasix. Serologies; p-ANCA, c-ANCA and SEAN screen are all negative -Mild hyperkalemia likely secondary to dietary indiscretion, resolved with hemodialysis. Continue on renal diet. Lasix. -Anemia of chronic disease; Hemoglobin 11.9. No need for SANTINO at this time. -Patient continues to require significant amount of supplemental oxygen. Patient had left thoracentesis with 290 mL fluid removal yesterday. Plan for right thoracentesis today. On IV steroids, breathing treatments. Echo bubble contrast study negative for right to left interatrial shunt, EF 60% Addendum Patient was seen and examined independently. She is back on airvo. Chest x-ray shows improving effusions. Pleural fluid analysis is transudative. She has a history of daily dialysis for most of this week. Removed about 11 L. Still continues to accumulate pleural fluid. We will plan for dialysis tomorrow. May be passed 1 hour UF and then hemodialysis.
[2023-08-17] MEDS: Aspirin E.C. 81 MG Tablet PO (11:48)
--- NOTE | 2023-08-17 12:22 | PCM.PN.HOSP ---
Subjective Subjective No issues overnight, tolerated a left thoracentesis yesterday pulmonology would like to have a thoracentesis on the right today if possible Objective Data Objective Data Vital Signs: Vital Signs Temp Pulse Resp BP Pulse Ox O2 Del Method O2 Flow Rate 97.5 F L 65 20 H 131/48 H 92 Airvo 60 08/17/23 08:00 08/17/23 11:00 08/17/23 11:00 08/17/23 10:00 08/17/23 11:00 08/17/23 10:00 08/17/23 10:00 FiO2 80 08/17/23 11:00 Oxygen Flow Rate (L/min) 60 Oxygen Delivery Method Airvo Weight: 149 lb 4.047 oz Body Mass Index (BMI) 25.4 Intake & Output: Intake and Output for Last 24 Hours 08/16/23 08/17/23 08/18/23 03:59 03:59 03:59 Intake Total 860 / 860 600 / 600 200 / 200 Output Total 3150 / 3150 2460 / 2460 Balance -2290 / -2290 -1860 / -1860 200 / 200 Lab / Micro Data 08/16/23 06:50 08/17/23 05:35 Labs: Laboratory Results - last 24 hr 08/12/23 11:00: Miscellaneous Cytology SEE PATHOLOGY REPORT 08/17/23 05:35: Sodium 137, Potassium 4.7, Chloride 104, Carbon Dioxide 24.0, BUN 71 H, Creatinine 3.77 H, Estim Creat Clear Calc 12.85, Est GFR (MDRD) Af Amer 15 L, Est GFR (MDRD) Non-Af 13 L, BUN/Creatinine Ratio 18.8, Glucose 148 H, Calcium 9.2, Phosphorus 5.0 H, Albumin 2.6 L Micro: Microbiology 08/12/23 11:00 Fluid - Thoracentesis Fluid Gram Stain - Final 08/12/23 11:00 Fluid - Thoracentesis Fluid Body Fluid Culture - Final Culture exhibits no growth. 08/12/23 11:00 Fluid - Thoracentesis Fluid Anaerobic Culture - Final No growth in 5 days. 08/07/23 15:10 Fluid - Thoracentesis Fluid Gram Stain - Final 08/07/23 15:10 Fluid - Thoracentesis Fluid Body Fluid Culture - Final No growth aerobically. 08/07/23 15:10 Fluid - Thoracentesis Fluid Anaerobic Culture - Final No growth in 5 days. 08/08/23 10:17 Sputum, Expectorated/Coughed Gram Stain - Final 08/08/23 10:17 Sputum, Expectorated/Coughed Respiratory Culture - Final Presumptive C albicans 08/09/23 04:59 Urine, Clean Catch Streptococcus pneumoniae Antigen (M - Final 08/09/23 04:59 Urine, Clean Catch Legionella Antigen - Final 08/07/23 21:25 Mucosa - Nasopharyngeal Respiratory Panel (PCR) - Final 08/07/23 11:31 Nasal Secretion SARS-CoV-2 & FLU Antigen (Rapid) - Final 08/07/23 11:31 Mucosa - Nasopharyngeal Rapid RSV (DFA) - Final Radiography Diagnostic Testing: Radiology Impression Echocardiogram 08/16/23 09:41 Interpretation Summary The estimated ejection fraction is 60 %. Mild concentric left ventricular hypertrophy. Bubble contrast study negative for right to left interatrial shunt. Full echo done 08/07/23. Ordering Physician: Chris Licea Referring Physician: Elvin Becerra Performed By: Nohemi Hassan, KEARACS, RVT Chest X-Ray 08/16/23 15:20 IMPRESSION: Status post left thoracentesis. No evidence of pneumothorax. Electronically Signed: Richard Ndiaye MD at 15:35 EST , Rhythm Strip Rhythm Strip: Sinus Rhythm Rate: 68 Physical Exam Narrative General: Alert, Oriented x3, Cooperative, No apparent distress HEENT: Atraumatic, PERRLA, EOMI, Normocephalic Oral: Moist Mucosa Neck: Supple, No JVD Lungs: Diminished, normal air movement, No rhonchi, no wheeze, No rales Cardiovascular: Regular rate, Regular Rhythm, Normal S1, Normal S2, No murmurs Abdomen: Soft, Non Tender, Non-Distended, No Hepato-splenomegaly Extremities: Edema, Capillary Refill Less than 3 Seconds Skin: No rashes, No breakdown Musculoskeletal: No Tenderness to Palpation of Joints or Extremities Neurological: Cranial nerves II-XII grossly intact, Motor Exam 5/5 strength throughout, Sensory exam intact to light touch and pain Psych/Mental Status: Flat Assessment & Plan Assessment/Plan (1) Acute hypoxemic respiratory failure: PLAN: Plan 1. Acute on chronic hypoxic respiratory failure secondary to volume overload and bilateral pleural effusions/COPD exacerbation ? Continue with Airvo ? Appreciate pulmonology's assistance ? Continue with dialysis, plan for thoracentesis today ? Continue with Solu-Medrol, she completed a course of Rocephin ? Per discussion with pulmonology there is feeling that she has possible trapped lung which is not typically due to a transudative effusion so may benefit from outpatient evaluation by thoracic surgery when stable 2. End-stage renal disease/anemia of chronic disease ? Stable, continue to monitor hemoglobin ? Continue with dialysis ? Appreciate nephrology's assistance 3. HTN/HLD/CAD ? Echo on this admission with an EF of 60% and no diastolic dysfunction ? Continue with her blood pressure medications ? We will monitor make adjustments as necessary ? Continue with diuresis 4. GERD ? Stable ? Continue with PPI 5. Anxiety/depression ? Stable ? Continue with Remeron and Zoloft DVT: Heparin Charges/Coding Visit Charges Inpatient E&M: 62467 Subs Hosp L2
--- NOTE | 2023-08-17 12:34 | PRO.PCM_ITS ---
Procedure Report Date of Procedure: 08/17/23 Assessment & Plan Assessment/Plan (1) Bilateral pleural effusion: PLAN: PROCEDURE: Ultrasound Guided Thoracentesis ORDERING PROVIDER: Dr. Chris Licea INDICATION: Female, 63 years old. Right pleural effusion. PROVIDER: MARJAN Maldonado PROCEDURE: The risks, benefits, and alternatives to the procedure were explained to the patient. The specific risks of bleeding, infection, and pneumothorax requiring chest tube insertion were discussed and accepted. Written informed consent was obtained. The patient was placed in the sitting, upright position. Ultrasonographic evaluation of the bilateral lower pleural spaces was carried out. An adequate pocket was identified in the right lower pleural space.The overlying skin was prepped and draped in sterile fashion. 2% lidocaine was administered subcutaneously for local anesthesia. Under ultrasound guidance, a 5-Mohawk thoracentesis needle/catheter system was advanced into the right posterior lower pleural fluid collection. 270 ml of clear yellow colored fluid was drained. The catheter was removed, and a sterile dressing was applied. The patient tolerated the procedure well. A chest x-ray was ordered. IMPRESSION: Successful ultrasound-guided thoracentesis of right pleural effusion Procedures Radiology Radiology US Procedures: [id number] Thoracentesis
[2023-08-17] MEDS: oxyCODONE 5 MG Tablet PO ×2 (12:42→20:54)
[2023-08-17] MEDS: Lidocaine 2% (20 ml mdv) 20 ML Vial INFILT (12:59)
--- NOTE | 2023-08-17 13:11 | RAD_ITS ---
STUDY: X-RAY CHEST REASON FOR EXAM: Female, 63 years old. Post thora TECHNIQUE: AP and inspiration expiration views. COMPARISON: Comparison is made with prior study dated August 16, 2023. FINDINGS: The patient is status post right thoracentesis. No evidence of pneumothorax. RAD/Chest Insp/Exp 2 View IMPRESSION: No evidence of pneumothorax on the post right thoracentesis examination. Electronically Signed: Richard Ndiaye MD at 13:35 EST ,
[2023-08-17] MEDS: Mirtazapine 15 MG Tablet 7.5 MG PO (20:45)
[2023-08-17] MEDS: Atorvastatin Calcium 80 MG Tablet PO (20:45)
[2023-08-17] MEDS: Acetaminophen 325 MG Tablet 650 MG PO (20:55)
[2023-08-17] MEDS: MELATONIN 3 MG TABLET PO (20:56)
[2023-08-18] VITALS (40 sets, daily range): BP systolic 81–204; BP diastolic 41–90; PULSE 49–75; RESP 12–76; TEMP 36–36.6; O2SAT 84–100; BMI 25.7; BMI 25.5
[2023-08-18 06:02] LABS: Absolute Lymphocyte Count 1.46 X10^3/uL (0.83-4.51); Absolute Neutrophil Count 13.6 X10^3/uL (2.0-7.7); Basophil# 0.05 X10^3/uL; Basophil% 0.3 % (0-1); Eosinophil# 0.02 X10^3/uL; Eosinophils% 0.1 % (0-5); Hematocrit 30.8 % (37-47); Hemoglobin 9.7 g/dL (12.0-15.0); Lymphocyte # 1.46 X10^3/ul (0.83-4.51); Lymphocyte % 8.9 % (19-41); Mean Corp Hgb Conc 31.5 g/dL (32-36); Mean Corpuscular Hgb 31.4 pg (27.0-32.0); Mean Corpuscular Volume 99.7 fL (81-99); Mean Platelet Vol. 9.9 fl (6.2-12.0); Monocyte% 6.1 % (0-10); NRBC Flagged by Analyzer 0 % (0-5); Neutrophil % 82.8 % (47-70); Platelet Count 194 K/mm3 (150-450); RBC Distribution Width CV 15.4 % (11.6-14.6); RBC Distribution Width SD 55.7 fl (35.1-43.9); Red Blood Count 3.09 M/mm3 (4.2-5.4); White Blood Count 16.4 K/mm3 (4.4-11.0)
[2023-08-18 06:17] LABS: Albumin, Serum 2.5 g/dL (3.2-5.0); BUN 89 mg/dL (7-18); BUN/Creat Ratio 18.6 RATIO (10-20); Chloride 101 mmol/L (98-107); Creatinine, Serum 4.78 mg/dL (0.55-1.02); EST Glomerular Filtration Rate 10 mL/min (>60); Est Glom Filt Rate - Afr Amer 12 mL/min (>60); Estimated Creatinine Clearance 10.13 ml/min; Glucose 122 mg/dL (74-106); Phosphorus 5.3 mg/dL (2.5-4.9); Potassium 4.7 mmol/L (3.5-5.1); Sodium Level 134 mmol/L (136-145)
--- NOTE | 2023-08-18 06:46 | PCM.PN.INT ---
Assessment & Plan Assessment/Plan (1) Bilateral pleural effusion: (2) Acute hypoxemic respiratory failure: PLAN: Plan RECOMMENDATIONS: 1. Routine dialysis today 2. Continue to wean supplemental oxygen to maintain saturations at or above 90%. 3. Completed antibiotic course. Monitor clinically 4. Continue bronchodilators. Wean steroids over the next 12 to 14 days 5. Encourage incentive spirometer use and mobilize patient as tolerated. 6. Possible transfer for CT surgery evaluation 7. Check chest x-ray tomorrow a.m. IMPRESSIONS: 1. Acute on chronic hypoxic respiratory failure secondary to fluid overload with bilateral pleural effusions Unclear if patient has an element of trapped lung. The patient has a total of 4 thoracentesis procedures, to each side, with rapid reaccumulation and fluid studies consistent with a transudate. Continue to wean supplemental oxygen as tolerated. The patient is a smoker with some concern of COPD, so the use of steroids and breathing treatments would be appropriate. Chest x-ray shows persistence of right pleural effusion and yesterday's thoracentesis had only 300 cc removed. It is possible patient will require a cardiothoracic evaluation. Patient with shunt like physiology. Limited echocardiogram was negative for intracardiac shunt. Shunt physiology appears to be improving 2. End-stage renal disease on hemodialysis Continue ongoing hemodialysis support per nephrology recommendations. Patient has had over 12 L removed over the course of the hospitalization and still has a pleural effusion. Pleural effusion was transudate, but patient is starting to have more hypotension associated with volume removal. Patient does not have significant edema, so it is unclear if fluid overload is the reason for persistence and hypoxia. Nephrology is following. Patient should receive standard dialysis at this point. 3. Anemia of chronic disease/hypertension/CAD/history of tobacco abuse/anxiety Complicates care, management, recovery and prognosis. The patient does have a history of GI bleed in the past, but hemoglobins appear to be at her baseline. Patient's anemia does not appear to be significant to explain patient's symptoms This note was generated with [employer] dictation software. It may contain incorrect words, spelling, and punctuation that were not noted in checking the note before signing. Subjective Subjective Patient did okay overnight. Patient did not have dialysis yesterday, but did have a thoracentesis with marginal output. Patient has improved on oxygen status overnight. Patient continues to report generalized discomfort, but was very drowsy during my evaluation as she has recently received oxycodone Objective Data Objective Data Vital Signs: Vital Signs Temp Pulse Resp BP Pulse Ox O2 Del Method O2 Flow Rate 36.0 C L 54 L 15 117/48 L 94 Airvo 60 08/18/23 04:00 08/18/23 06:00 08/18/23 06:00 08/18/23 06:00 08/18/23 06:00 08/18/23 06:00 08/18/23 06:00 FiO2 55 08/18/23 06:00 Oxygen Flow Rate (L/min) 60 Oxygen Delivery Method Airvo Weight: 67.7 kg Body Mass Index (BMI) 25.4 Intake & Output: Intake and Output for Last 24 Hours 08/16/23 08/17/23 08/18/23 23:59 23:59 23:59 Intake Total 600 / 600 200 / 200 Output Total 2460 / 2460 270 / 270 Balance -1860 / -1860 -70 / -70 Lab / Micro Data Attestation: I reviewed the patient's lab results. 08/18/23 05:55 08/18/23 05:55 Labs: Laboratory Results - last 24 hr 08/12/23 11:00: Miscellaneous Cytology SEE PATHOLOGY REPORT 08/18/23 05:55: WBC 16.4 H, RBC 3.09 L, Hgb 9.7 L, Hct 30.8 L, MCV 99.7 H, MCH 31.4, MCHC 31.5 L, RDW Std Deviation 55.7 H, RDW Coeff of Lola 15.4 H, Plt Count 194, MPV 9.9, Immature Gran % (Auto) 1.800 H, Neut % (Auto) 82.8 H, Lymph % (Auto) 8.9 L, [place] % (Auto) 6.1, Eos % (Auto) 0.1, Baso % (Auto) 0.3, Absolute Neuts (auto) 13.6 H, Absolute Lymphs (auto) 1.46, Nucleated RBC % 0, Sodium 134 L, Potassium 4.7, Chloride 101, Carbon Dioxide 23.0, BUN 89 H, Creatinine 4.78 H, Estim Creat Clear Calc 10.13, Est GFR (MDRD) Af Amer 12 L, Est GFR (MDRD) Non-Af 10 L, BUN/Creatinine Ratio 18.6, Glucose 122 H, Calcium 9.0, Phosphorus 5.3 H, Albumin 2.5 L Micro: Microbiology 08/12/23 11:00 Fluid - Thoracentesis Fluid Gram Stain - Final 08/12/23 11:00 Fluid - Thoracentesis Fluid Body Fluid Culture - Final Culture exhibits no growth. 08/12/23 11:00 Fluid - Thoracentesis Fluid Anaerobic Culture - Final No growth in 5 days. 08/07/23 15:10 Fluid - Thoracentesis Fluid Gram Stain - Final 08/07/23 15:10 Fluid - Thoracentesis Fluid Body Fluid Culture - Final No growth aerobically. 08/07/23 15:10 Fluid - Thoracentesis Fluid Anaerobic Culture - Final No growth in 5 days. 08/08/23 10:17 Sputum, Expectorated/Coughed Gram Stain - Final 08/08/23 10:17 Sputum, Expectorated/Coughed Respiratory Culture - Final Presumptive C albicans 08/09/23 04:59 Urine, Clean Catch Streptococcus pneumoniae Antigen (M - Final 08/09/23 04:59 Urine, Clean Catch Legionella Antigen - Final 08/07/23 21:25 Mucosa - Nasopharyngeal Respiratory Panel (PCR) - Final 08/07/23 11:31 Nasal Secretion SARS-CoV-2 & FLU Antigen (Rapid) - Final 08/07/23 11:31 Mucosa - Nasopharyngeal Rapid RSV (DFA) - Final Radiography Diagnostic Testing: Radiology Impression Chest X-Ray 08/17/23 13:11 IMPRESSION: No evidence of pneumothorax on the post right thoracentesis examination. Electronically Signed: Richard Ndiaye MD at 13:35 EST , Rhythm Strip Rhythm Strip: Sinus Rhythm Rate: 60 Physical Exam Const alert and no apparent distress Constitutional Narrative: Resting comfortably on my evaluation. No conversational dyspnea General Appearance: cooperative HEENT normocephalic, head/scalp atraumatic and moist oral mucous membranes Eyes PERRL, EOMs intact bilaterally and conjunctivae normal Neck full ROM and supple General: trachea midline Chest inspection of chest normal Resp normal respiratory effort Auscultation: Negative for rales, rhonchi or wheezes Percussion: dullness Mid: right and Lower: right Cardio regular rate, regular rhythm, S1 normal heart sound, S2 normal heart sound, no rub and no gallops Heart Sounds: murmur GI normal to inspection, nondistended, normoactive bowel sounds Extremity General Extremity: Negative for clubbing or edema Skin no rashes or lesions noted Neuro CN's II-XII intact bilaterally, moves all extremities and no focal motor deficits Psych Mood & Affect: flat affect Charges/Coding Visit Charges Inpatient E&M: 25544 Subs Hosp L3
[2023-08-18] MEDS: Ipratropium/Albuterol Sulfate 3 ML AMPUL.NEB INHALATION ×3 (06:57→19:16)
[2023-08-18] MEDS: PureFlow B 2K Dialysis Soln 1 BAG 6 BAG PF (07:34)
[2023-08-18] MEDS: 0.9% Normal Saline 1,000 ML IV.SOLN. 1000 ML OPERA.SITE (07:34)
[2023-08-18] MEDS: 0.9% Saline Lock 10 ML Syringe IV ×3 (07:35→17:35)
[2023-08-18] MEDS: Epoetin Alfa epbx 10,000 UNITS/ML 10000 UNIT IV (07:49)
[2023-08-18] MEDS: SEVELAMER CARBONATE 800 MG TABLET PO ×3 (09:15→17:35)
--- NOTE | 2023-08-18 09:16 | PN.HOSP_ITS ---
Subjective Subjective No issues overnight, maintaining on Airvo Objective Data Objective Data Vital Signs: Vital Signs Temp Pulse Resp BP Pulse Ox O2 Del Method O2 Flow Rate 97.7 F L 55 L 16 132/53 H 95 Airvo 60 08/18/23 07:20 08/18/23 09:00 08/18/23 09:00 08/18/23 09:00 08/18/23 09:00 08/18/23 09:00 08/18/23 09:00 FiO2 94 08/18/23 09:00 Oxygen Flow Rate (L/min) 60 Oxygen Delivery Method Airvo Weight: 150 lb 5.684 oz Body Mass Index (BMI) 25.7 Intake & Output: Intake and Output for Last 24 Hours 08/17/23 08/18/23 08/19/23 03:59 03:59 03:59 Intake Total 600 / 600 200 / 200 Output Total 2460 / 2460 270 / 270 Balance -1860 / -1860 -70 / -70 Lab / Micro Data 08/18/23 05:55 08/18/23 05:55 Labs: Laboratory Results - last 24 hr 08/18/23 05:55: WBC 16.4 H, RBC 3.09 L, Hgb 9.7 L, Hct 30.8 L, MCV 99.7 H, MCH 31.4, MCHC 31.5 L, RDW Std Deviation 55.7 H, RDW Coeff of Lola 15.4 H, Plt Count 194, MPV 9.9, Immature Gran % (Auto) 1.800 H, Neut % (Auto) 82.8 H, Lymph % (Auto) 8.9 L, [place] % (Auto) 6.1, Eos % (Auto) 0.1, Baso % (Auto) 0.3, Absolute Neuts (auto) 13.6 H, Absolute Lymphs (auto) 1.46, Nucleated RBC % 0, Sodium 134 L, Potassium 4.7, Chloride 101, Carbon Dioxide 23.0, BUN 89 H, Creatinine 4.78 H , Estim Creat Clear Calc 10.13, Est GFR (MDRD) Af Amer 12 L, Est GFR (MDRD) Non- Af 10 L, BUN/Creatinine Ratio 18.6, Glucose 122 H, Calcium 9.0, Phosphorus 5.3 H , Albumin 2.5 L Micro: Microbiology 08/12/23 11:00 Fluid - Thoracentesis Fluid Gram Stain - Final 08/12/23 11:00 Fluid - Thoracentesis Fluid Body Fluid Culture - Final Culture exhibits no growth. 08/12/23 11:00 Fluid - Thoracentesis Fluid Anaerobic Culture - Final No growth in 5 days. 08/07/23 15:10 Fluid - Thoracentesis Fluid Gram Stain - Final 08/07/23 15:10 Fluid - Thoracentesis Fluid Body Fluid Culture - Final No growth aerobically. 08/07/23 15:10 Fluid - Thoracentesis Fluid Anaerobic Culture - Final No growth in 5 days. 08/08/23 10:17 Sputum, Expectorated/Coughed Gram Stain - Final 08/08/23 10:17 Sputum, Expectorated/Coughed Respiratory Culture - Final Presumptive C albicans 08/09/23 04:59 Urine, Clean Catch Streptococcus pneumoniae Antigen (M - Final 08/09/23 04:59 Urine, Clean Catch Legionella Antigen - Final 08/07/23 21:25 Mucosa - Nasopharyngeal Respiratory Panel (PCR) - Final 08/07/23 11:31 Nasal Secretion SARS-CoV-2 & FLU Antigen (Rapid) - Final 08/07/23 11:31 Mucosa - Nasopharyngeal Rapid RSV (DFA) - Final Radiography Diagnostic Testing: Radiology Impression Chest X-Ray 08/17/23 13:11 IMPRESSION: No evidence of pneumothorax on the post right thoracentesis examination. Electronically Signed: Richard Ndiaye MD at 13:35 EST Reading Location ID and State: [address] [place] [address] , Service support , Rhythm Strip Rhythm Strip: Sinus Rhythm Rate: 60 Physical Exam Narrative General: Alert, Oriented x3, Cooperative, No apparent distress HEENT: Atraumatic, PERRLA, EOMI, Normocephalic Oral: Moist Mucosa Neck: Supple, No JVD Lungs: Diminished, normal air movement, No rhonchi, no wheeze, No rales Cardiovascular: Regular rate, Regular Rhythm, Normal S1, Normal S2, No murmurs Abdomen: Soft, Non Tender, Non-Distended, No Hepato-splenomegaly Extremities: Edema, Capillary Refill Less than 3 Seconds Skin: No rashes, No breakdown Musculoskeletal: No Tenderness to Palpation of Joints or Extremities Neurological: Cranial nerves II-XII grossly intact, Motor Exam 5/5 strength throughout, Sensory exam intact to light touch and pain Psych/Mental Status: Flat Assessment & Plan Assessment/Plan (1) Acute hypoxemic respiratory failure: PLAN: Plan 1. Acute on chronic hypoxic respiratory failure secondary to volume overload and bilateral pleural effusions/COPD exacerbation ? Continue with Airvo ? Appreciate pulmonology's assistance ? Continue with dialysis, plan for thoracentesis today ? Continue with Solu-Medrol, she completed a course of Rocephin ? Per discussion with pulmonology there is feeling that she has possible trapped lung which is not typically due to a transudative effusion unfortunately 2 different thoracenteses were unable to resolve the effusions completely and she still requiring significant amount of oxygen so we will attempt to transfer care to tertiary facility with thoracic surgery availability 2. End-stage renal disease/anemia of chronic disease ? Stable, continue to monitor hemoglobin ? Continue with dialysis ? Appreciate nephrology's assistance 3. HTN/HLD/CAD ? Echo on this admission with an EF of 60% and no diastolic dysfunction ? Continue with her blood pressure medications ? We will monitor make adjustments as necessary ? Continue with diuresis 4. GERD ? Stable ? Continue with PPI 5. Anxiety/depression ? Stable ? Continue with Remeron and Zoloft DVT: Heparin Charges/Coding Visit Charges Inpatient E&M: 91977 Subs Hosp L2
[2023-08-18] MEDS: Heparin 10,000 UNITS/10 ML Vial IV (10:32)
[2023-08-18] MEDS: predniSONE 20 MG Tablet 40 MG PO (11:14)
[2023-08-18] MEDS: Heparin Injection (Vial) 5,000 UNIT/ML VIAL 5000 UNIT SC ×2 (11:15→21:48)
[2023-08-18] MEDS: Aspirin E.C. 81 MG Tablet PO (11:15)
[2023-08-18] MEDS: Furosemide 40 MG/4 ML Vial IV ×2 (11:16→17:35)
[2023-08-18] MEDS: Carvedilol 25 MG Tablet PO ×2 (11:17→21:48)
[2023-08-18] MEDS: guaiFENesin 1,200 MG Tablet 1200 MG PO ×2 (11:18→21:48)
[2023-08-18] MEDS: Cholecalciferol (VIT D3) 25 MCG TABLET (1,000 UNITS) 50 MCG PO (11:18)
[2023-08-18] MEDS: Sertraline 50 MG Tablet 25 MG PO (11:18)
[2023-08-18] MEDS: NIFEdipine 90 MG Tablet PO ×2 (11:21→21:48)
[2023-08-18] MEDS: Clopidogrel Bisulfate 75 MG Tablet PO (11:21)
[2023-08-18] MEDS: Pantoprazole Sodium 40 MG Tablet PO (11:21)
[2023-08-18] MEDS: Folic Acid/Vitamin B Comp W-C 1 Capsule 1 CAP PO (11:22)
[2023-08-18] MEDS: oxyCODONE 5 MG Tablet PO ×2 (11:38→21:46)
[2023-08-18] MEDS: Acetaminophen 325 MG Tablet 650 MG PO (21:45)
[2023-08-18] MEDS: MELATONIN 3 MG TABLET PO (21:46)
[2023-08-18] MEDS: Mirtazapine 15 MG Tablet 7.5 MG PO (21:48)
[2023-08-18] MEDS: Atorvastatin Calcium 80 MG Tablet PO (21:48)
[2023-08-19] VITALS (34 sets, daily range): BP systolic 121–180; BP diastolic 47–97; PULSE 54–75; RESP 13–24; TEMP 35.9–36.7; O2SAT 82–96; BMI 26.8
[2023-08-19 05:07] LABS: Absolute Lymphocyte Count 1.47 X10^3/uL (0.83-4.51); Basophil# 0.03 X10^3/uL; Basophil% 0.2 % (0-1); Eosinophil# 0.01 X10^3/uL; Eosinophils% 0.1 % (0-5); Hematocrit 30.8 % (37-47); Hemoglobin 9.6 g/dL (12.0-15.0); Lymphocyte # 1.47 X10^3/ul (0.83-4.51); Lymphocyte % 7.5 % (19-41); Mean Corp Hgb Conc 31.2 g/dL (32-36); Mean Corpuscular Hgb 31.3 pg (27.0-32.0); Mean Corpuscular Volume 100.3 fL (81-99); Mean Platelet Vol. 10.4 fl (6.2-12.0); Monocyte# 0.81 X10^3/uL; Monocyte% 4.1 % (0-10); NRBC Flagged by Analyzer 0 % (0-5); Neutrophil % 86.3 % (47-70); Platelet Count 179 K/mm3 (150-450); RBC Distribution Width CV 15.4 % (11.6-14.6); RBC Distribution Width SD 56.9 fl (35.1-43.9); Red Blood Count 3.07 M/mm3 (4.2-5.4); White Blood Count 19.7 K/mm3 (4.4-11.0)
[2023-08-19 05:24] LABS: Albumin, Serum 2.5 g/dL (3.2-5.0); BUN 65 mg/dL (7-18); BUN/Creat Ratio 17.9 RATIO (10-20); Chloride 102 mmol/L (98-107); Creatinine, Serum 3.64 mg/dL (0.55-1.02); EST Glomerular Filtration Rate 13 mL/min (>60); Est Glom Filt Rate - Afr Amer 16 mL/min (>60); Estimated Creatinine Clearance 13.31 ml/min; Glucose 132 mg/dL (74-106); Phosphorus 4.7 mg/dL (2.5-4.9); Potassium 4.8 mmol/L (3.5-5.1); Sodium Level 134 mmol/L (136-145)
--- NOTE | 2023-08-19 05:40 | RAD_ITS ---
STUDY: X-RAY CHEST REASON FOR EXAM: Female, 63 years old. Follow-up effusion TECHNIQUE: Single AP portable view of the chest. COMPARISON: 08/17/2023 FINDINGS: Tunneled left internal jugular dialysis catheter which is unchanged. The lungs are clear and expanded. No change in the moderate right pleural effusion and small left pleural effusion with bibasilar atelectasis. There is moderate cardiac enlargement. No change in the widening right paratracheal stripe likely from tortuous vasculature. Normal visualized pulmonary arteries. Normal visualized aortic arch and descending thoracic aorta. Normal visualized thoracic spine. Normal visualized ribs, clavicles, and shoulders. There is no demonstrated abnormality of the visualized soft tissue structures of the upper abdomen. RAD/Chest 1 View (Portable) IMPRESSION: No change from 08/17/2023. Electronically Signed: Cde Beebe MD at 8:44 EST ,
[2023-08-19] MEDS: Ipratropium/Albuterol Sulfate 3 ML AMPUL.NEB INHALATION ×3 (07:13→20:02)
--- NOTE | 2023-08-19 07:25 | PN.CC_ITS ---
Assessment & Plan Assessment/Plan (1) Bilateral pleural effusion: (2) Acute hypoxemic respiratory failure: PLAN: Plan RECOMMENDATIONS: 1. Routine dialysis per nephrology. Appears euvolemic 2. Continue to wean supplemental oxygen to maintain saturations at or above 90%. 3. Completed antibiotic course. Monitor clinically 4. Continue bronchodilators. Wean steroids over the next 12 to 14 days 5. Encourage incentive spirometer use and mobilize patient as tolerated. 6. Possible transfer for CT surgery evaluation IMPRESSIONS: 1. Acute on chronic hypoxic respiratory failure secondary to fluid overload with bilateral pleural effusions Unclear if patient has an element of trapped lung. The patient has a total of 4 thoracentesis procedures, to each side, with rapid reaccumulation and fluid studies consistent with a transudate. Continue to wean supplemental oxygen as tolerated. The patient is a smoker with some concern of COPD, so the use of steroids and breathing treatments would be appropriate. Chest x-ray shows persistence of right pleural effusion despite 4 thoracentesis procedures. It is possible patient will require a cardiothoracic evaluation. Patient continues with shunt like physiology. Clinical suspicion is a lung shunt secondary to collapse. Limited echocardiogram was negative for intracardiac shunt. Patient has not been able to tolerate nasal cannula for over a week 2. End-stage renal disease on hemodialysis Continue ongoing hemodialysis support per nephrology recommendations. Patient has had over 12 L removed over the course of the hospitalization and still has a pleural effusion. Pleural effusion was transudate, but patient is starting to have more hypotension associated with volume removal. Patient does not have significant edema, so it is unclear if fluid overload is the reason for persistence and hypoxia. Nephrology is following. Patient should receive standard dialysis at this point. It does not appear patient has any more volume to remove clinically 3. Anemia of chronic disease/hypertension/CAD/history of tobacco abuse/anxiety Complicates care, management, recovery and prognosis. The patient does have a history of GI bleed in the past, but hemoglobins appear to be at her baseline. Patient's anemia does not appear to be significant to explain patient's symptoms This note was generated with [employer] software. It may contain incorrect words, spelling, and punctuation that were not noted in checking the note before signing. Subjective Subjective Patient did well overnight and has been maintained on 50% FiO2. However, not much fluid could be taken off with dialysis yesterday. Patient subjectively is not reporting any pain at this time. Objective Data Objective Data Chest x-ray shows better aeration on the right, but still significant effusion. Vital Signs: Vital Signs Temp Pulse Resp BP Pulse Ox O2 Del Method O2 Flow Rate 35.9 C L 57 L 19 H 147/53 H 95 Airvo 60 08/19/23 04:00 08/19/23 07:11 08/19/23 07:11 08/19/23 07:00 08/19/23 07:11 08/19/23 07:00 08/19/23 07:00 FiO2 81 08/19/23 07:11 Oxygen Flow Rate (L/min) 60 Oxygen Delivery Method Airvo Weight: 71.2 kg Body Mass Index (BMI) 26.8 Intake & Output: Intake and Output for Last 24 Hours 08/17/23 08/18/23 08/19/23 23:59 23:59 23:59 Intake Total 200 / 200 480 / 480 Output Total 270 / 270 210 / 210 Balance -70 / -70 -210 / -210 480 / 480 Lab / Micro Data 08/19/23 04:55 08/19/23 04:55 Labs: Laboratory Results - last 24 hr 08/19/23 04:55: WBC 19.7 H, RBC 3.07 L, Hgb 9.6 L, Hct 30.8 L, MCV 100.3 H, MCH 31.3, MCHC 31.2 L, RDW Std Deviation 56.9 H, RDW Coeff of Lola 15.4 H, Plt Count 179, MPV 10.4, Immature Gran % (Auto) 1.800 H, Neut % (Auto) 86.3 H, Lymph % (Auto) 7.5 L, [place] % (Auto) 4.1, Eos % (Auto) 0.1, Baso % (Auto) 0.2, Absolute Neuts (auto) 17.0 H, Absolute Lymphs (auto) 1.47, Nucleated RBC % 0, Sodium 134 L, Potassium 4.8, Chloride 102, Carbon Dioxide 23.0, BUN 65 H, Creatinine 3.64 H , Estim Creat Clear Calc 13.31, Est GFR (MDRD) Af Amer 16 L, Est GFR (MDRD) Non- Af 13 L, BUN/Creatinine Ratio 17.9, Glucose 132 H, Calcium 9.0, Phosphorus 4.7, Albumin 2.5 L Micro: Microbiology 08/12/23 11:00 Fluid - Thoracentesis Fluid Gram Stain - Final 08/12/23 11:00 Fluid - Thoracentesis Fluid Body Fluid Culture - Final Culture exhibits no growth. 08/12/23 11:00 Fluid - Thoracentesis Fluid Anaerobic Culture - Final No growth in 5 days. 08/07/23 15:10 Fluid - Thoracentesis Fluid Gram Stain - Final 08/07/23 15:10 Fluid - Thoracentesis Fluid Body Fluid Culture - Final No growth aerobically. 08/07/23 15:10 Fluid - Thoracentesis Fluid Anaerobic Culture - Final No growth in 5 days. 08/08/23 10:17 Sputum, Expectorated/Coughed Gram Stain - Final 08/08/23 10:17 Sputum, Expectorated/Coughed Respiratory Culture - Final Presumptive C albicans 08/09/23 04:59 Urine, Clean Catch Streptococcus pneumoniae Antigen (M - Final 08/09/23 04:59 Urine, Clean Catch Legionella Antigen - Final 08/07/23 21:25 Mucosa - Nasopharyngeal Respiratory Panel (PCR) - Final 08/07/23 11:31 Nasal Secretion SARS-CoV-2 & FLU Antigen (Rapid) - Final 08/07/23 11:31 Mucosa - Nasopharyngeal Rapid RSV (DFA) - Final Rhythm Strip Rhythm Strip: Sinus Rhythm Rate: 58 Physical Exam Const alert and no apparent distress Constitutional Narrative: Resting comfortably on my evaluation. No conversational dyspnea. Airvo in place. General Appearance: cooperative HEENT normocephalic, head/scalp atraumatic and moist oral mucous membranes Eyes PERRL, EOMs intact bilaterally and conjunctivae normal Neck full ROM and supple General: trachea midline Chest inspection of chest normal Resp normal respiratory effort Auscultation: Negative for rales, rhonchi or wheezes Percussion: dullness Mid: right and Lower: right Cardio regular rate, regular rhythm, S1 normal heart sound, S2 normal heart sound, no rub and no gallops Heart Sounds: murmur GI normal to inspection, nondistended, normoactive bowel sounds Extremity General Extremity: Negative for clubbing or edema Skin no rashes or lesions noted Neuro CN's II-XII intact bilaterally, moves all extremities and no focal motor deficits Psych Mood & Affect: flat affect Charges/Coding Visit Charges Inpatient E&M: 53048 Subs Hosp L3
[2023-08-19] MEDS: predniSONE 20 MG Tablet 40 MG PO (08:31)
[2023-08-19] MEDS: 0.9% Saline Lock 10 ML Syringe IV ×5 (08:31→22:49)
[2023-08-19] MEDS: Aspirin E.C. 81 MG Tablet PO (08:32)
[2023-08-19] MEDS: SEVELAMER CARBONATE 800 MG TABLET PO ×3 (08:32→17:13)
[2023-08-19] MEDS: Carvedilol 25 MG Tablet PO ×2 (08:33→20:37)
[2023-08-19] MEDS: guaiFENesin 1,200 MG Tablet 1200 MG PO ×2 (08:33→20:38)
[2023-08-19] MEDS: Folic Acid/Vitamin B Comp W-C 1 Capsule 1 CAP PO (08:34)
[2023-08-19] MEDS: Pantoprazole Sodium 40 MG Tablet PO (08:34)
[2023-08-19] MEDS: Cholecalciferol (VIT D3) 25 MCG TABLET (1,000 UNITS) 50 MCG PO (08:34)
[2023-08-19] MEDS: NIFEdipine 90 MG Tablet PO ×2 (08:34→20:38)
[2023-08-19] MEDS: Clopidogrel Bisulfate 75 MG Tablet PO (08:34)
[2023-08-19] MEDS: Sertraline 50 MG Tablet 25 MG PO (08:35)
--- NOTE | 2023-08-19 08:35 | PN.HOSP_ITS ---
Subjective Subjective No issues overnight Objective Data Objective Data Vital Signs: Vital Signs Temp Pulse Resp BP Pulse Ox O2 Del Method O2 Flow Rate 96.7 F L 57 L 19 H 147/53 H 95 Airvo 60 08/19/23 04:00 08/19/23 07:11 08/19/23 07:11 08/19/23 07:00 08/19/23 07:11 08/19/23 07:00 08/19/23 07:00 FiO2 81 08/19/23 07:11 Oxygen Flow Rate (L/min) 60 Oxygen Delivery Method Airvo Weight: 156 lb 15.506 oz Body Mass Index (BMI) 26.8 Intake & Output: Intake and Output for Last 24 Hours 08/18/23 08/19/23 08/20/23 03:59 03:59 03:59 Intake Total 200 / 200 480 / 480 Output Total 270 / 270 210 / 210 Balance -70 / -70 -210 / -210 480 / 480 Lab / Micro Data 08/19/23 04:55 08/19/23 04:55 Labs: Laboratory Results - last 24 hr 08/19/23 04:55: WBC 19.7 H, RBC 3.07 L, Hgb 9.6 L, Hct 30.8 L, MCV 100.3 H, MCH 31.3, MCHC 31.2 L, RDW Std Deviation 56.9 H, RDW Coeff of Lola 15.4 H, Plt Count 179, MPV 10.4, Immature Gran % (Auto) 1.800 H, Neut % (Auto) 86.3 H, Lymph % (Auto) 7.5 L, [place] % (Auto) 4.1, Eos % (Auto) 0.1, Baso % (Auto) 0.2, Absolute Neuts (auto) 17.0 H, Absolute Lymphs (auto) 1.47, Nucleated RBC % 0, Sodium 134 L, Potassium 4.8, Chloride 102, Carbon Dioxide 23.0, BUN 65 H, Creatinine 3.64 H , Estim Creat Clear Calc 13.31, Est GFR (MDRD) Af Amer 16 L, Est GFR (MDRD) Non- Af 13 L, BUN/Creatinine Ratio 17.9, Glucose 132 H, Calcium 9.0, Phosphorus 4.7, Albumin 2.5 L Micro: Microbiology 08/12/23 11:00 Fluid - Thoracentesis Fluid Gram Stain - Final 08/12/23 11:00 Fluid - Thoracentesis Fluid Body Fluid Culture - Final Culture exhibits no growth. 08/12/23 11:00 Fluid - Thoracentesis Fluid Anaerobic Culture - Final No growth in 5 days. 08/07/23 15:10 Fluid - Thoracentesis Fluid Gram Stain - Final 08/07/23 15:10 Fluid - Thoracentesis Fluid Body Fluid Culture - Final No growth aerobically. 08/07/23 15:10 Fluid - Thoracentesis Fluid Anaerobic Culture - Final No growth in 5 days. 08/08/23 10:17 Sputum, Expectorated/Coughed Gram Stain - Final 08/08/23 10:17 Sputum, Expectorated/Coughed Respiratory Culture - Final Presumptive C albicans 08/09/23 04:59 Urine, Clean Catch Streptococcus pneumoniae Antigen (M - Final 08/09/23 04:59 Urine, Clean Catch Legionella Antigen - Final 08/07/23 21:25 Mucosa - Nasopharyngeal Respiratory Panel (PCR) - Final 08/07/23 11:31 Nasal Secretion SARS-CoV-2 & FLU Antigen (Rapid) - Final 08/07/23 11:31 Mucosa - Nasopharyngeal Rapid RSV (DFA) - Final Rhythm Strip Rhythm Strip: Sinus Rhythm Rate: 58 Physical Exam Narrative General: Alert, Oriented x3, Cooperative, No apparent distress HEENT: Atraumatic, PERRLA, EOMI, Normocephalic Oral: Moist Mucosa Neck: Supple, No JVD Lungs: Diminished, normal air movement, No rhonchi, no wheeze, No rales Cardiovascular: Regular rate, Regular Rhythm, Normal S1, Normal S2, No murmurs Abdomen: Soft, Non Tender, Non-Distended, No Hepato-splenomegaly Extremities: Edema, Capillary Refill Less than 3 Seconds Skin: No rashes, No breakdown Musculoskeletal: No Tenderness to Palpation of Joints or Extremities Neurological: Cranial nerves II-XII grossly intact, Motor Exam 5/5 strength throughout, Sensory exam intact to light touch and pain Psych/Mental Status: Flat Assessment & Plan Assessment/Plan (1) Acute hypoxemic respiratory failure: PLAN: Plan 1. Acute on chronic hypoxic respiratory failure secondary to volume overload and bilateral pleural effusions/COPD exacerbation ? Continue with Airvo ? Appreciate pulmonology's assistance ? Continue with dialysis, plan for thoracentesis today ? Continue with Solu-Medrol, she completed a course of Rocephin ? Per discussion with pulmonology there is feeling that she has possible trapped lung which is not typically due to a transudative effusion unfortunately 2 different thoracenteses were unable to resolve the effusions completely and she still requiring significant amount of oxygen so we will attempt to transfer care to tertiary facility with thoracic surgery availability 2. End-stage renal disease/anemia of chronic disease ? Stable, continue to monitor hemoglobin ? Continue with dialysis ? Appreciate nephrology's assistance 3. HTN/HLD/CAD ? Echo on this admission with an EF of 60% and no diastolic dysfunction ? Continue with her blood pressure medications ? We will monitor make adjustments as necessary ? Continue with diuresis 4. GERD ? Stable ? Continue with PPI 5. Anxiety/depression ? Stable ? Continue with Remeron and Zoloft DVT: Heparin Charges/Coding Visit Charges Inpatient E&M: 56302 Subs Hosp L2
[2023-08-19] MEDS: Furosemide 40 MG/4 ML Vial IV ×2 (10:46→17:13)
[2023-08-19] MEDS: Heparin Injection (Vial) 5,000 UNIT/ML VIAL 5000 UNIT SC ×2 (10:46→20:38)
--- NOTE | 2023-08-19 11:19 | CASEMGMT ---
Tertiary facilities in-network with patient's insurnace: [facility], [facility], , [facility]
--- NOTE | 2023-08-19 12:42 | NURSING ---
disc vape pen in pts possession, [facility] policy regarding vaping, dangers of O2/combustion and effect to pt's already compromised lungs. This RN offered locking in pt med drawer or secured envelope to safe. Pt states it doesn't even work, it belongs to (my friend) Vesna, I'm not using it . Disc if not working shouldnt be an issue to lock up or throw away. Pt called her friend Vesna who stated on speaker phone if its not working just throw it away . on returning to pt to bed an hour later. Subject again broached with pt. She threw it across the room and said there, if its such a big deal . This RN retrieved vape pen, thanked pt for her cooperation and placed vape in trash out of the room.
[2023-08-19] MEDS: Mag Hydrox/Al Hydrox/Simeth 30 ML UDC 15 ML PO ×2 (15:17→20:39)
[2023-08-19] MEDS: MELATONIN 3 MG TABLET PO (20:37)
[2023-08-19] MEDS: Atorvastatin Calcium 80 MG Tablet PO (20:38)
[2023-08-19] MEDS: Mirtazapine 15 MG Tablet 7.5 MG PO (20:38)
[2023-08-19] MEDS: oxyCODONE 5 MG Tablet PO (20:38)
[2023-08-19] MEDS: Ondansetron 4 MG/2 ML Vial IV (22:00)
[2023-08-19] MEDS: hydrALAZINE 20 MG/ML Vial IV (22:48)
[2023-08-20] VITALS (30 sets, daily range): BP systolic 105–166; BP diastolic 40–89; PULSE 54–71; RESP 13–26; TEMP 35.9–36.6; O2SAT 90–96; BMI 26.7
[2023-08-20 03:51] LABS: Absolute Lymphocyte Count 0.79 X10^3/uL (0.83-4.51); Absolute Neutrophil Count 13.4 X10^3/uL (2.0-7.7); Basophil# 0.02 X10^3/uL; Basophil% 0.1 % (0-1); Hematocrit 28.8 % (37-47); Hemoglobin 9.2 g/dL (12.0-15.0); Lymphocyte # 0.79 X10^3/ul (0.83-4.51); Lymphocyte % 5.2 % (19-41); Mean Corp Hgb Conc 31.9 g/dL (32-36); Mean Corpuscular Hgb 31.8 pg (27.0-32.0); Mean Corpuscular Volume 99.7 fL (81-99); Mean Platelet Vol. 10.4 fl (6.2-12.0); Monocyte# 0.59 X10^3/uL; Monocyte% 3.9 % (0-10); NRBC Flagged by Analyzer 0 % (0-5); Neutrophil # 13.42 X10^3/uL (2.7-7.7); Neutrophil % 89.2 % (47-70); Platelet Count 192 K/mm3 (150-450); RBC Distribution Width CV 15.5 % (11.6-14.6); RBC Distribution Width SD 55.9 fl (35.1-43.9); Red Blood Count 2.89 M/mm3 (4.2-5.4); White Blood Count 15.1 K/mm3 (4.4-11.0)
[2023-08-20 04:00] LABS: Anion Gap 10 (5-15); BUN 84 mg/dL (7-18); BUN/Creat Ratio 18.6 RATIO (10-20); Calcium,Total 8.7 mg/dL (8.5-10.1); Chloride 100 mmol/L (98-107); Creatinine, Serum 4.52 mg/dL (0.55-1.02); EST Glomerular Filtration Rate 10 mL/min (>60); Est Glom Filt Rate - Afr Amer 13 mL/min (>60); Estimated Creatinine Clearance 10.72 ml/min; Glucose 118 mg/dL (74-106); Sodium Level 136 mmol/L (136-145)
--- NOTE | 2023-08-20 06:05 | PN.CC_ITS ---
Assessment & Plan Assessment/Plan (1) Bilateral pleural effusion: (2) Acute hypoxemic respiratory failure: PLAN: Plan RECOMMENDATIONS: 1. Routine dialysis per nephrology. Appears euvolemic 2. Continue to wean supplemental oxygen to maintain saturations at or above 90%. 3. Completed antibiotic course. Monitor clinically 4. Continue bronchodilators. Wean steroids over the next 12 to 14 days 5. Encourage incentive spirometer use and mobilize patient as tolerated. 6. Possible transfer for CT surgery evaluation. Check chest x-ray tomorrow IMPRESSIONS: 1. Acute on chronic hypoxic respiratory failure secondary to fluid overload with bilateral pleural effusions Unclear if patient has an element of trapped lung. The patient has a total of 4 thoracentesis procedures, to each side, with rapid reaccumulation and fluid studies consistent with a transudate. Continue to wean supplemental oxygen as tolerated. The patient is a smoker with some concern of COPD, so the use of steroids and breathing treatments would be appropriate. Chest x-ray shows persistence of right pleural effusion despite 4 thoracentesis procedures. Patient continues to have shunt physiology. Conservative measures have not been successful. Patient may need chest tube versus VATS procedure. No bed is available at a tertiary facility at this time. 2. End-stage renal disease on hemodialysis Continue ongoing hemodialysis support per nephrology recommendations. Patient has had over 12 L removed over the course of the hospitalization and still has a pleural effusion. Pleural effusion was transudate, but patient is starting to have more hypotension associated with volume removal. Patient does not have significant edema, so it is unclear if fluid overload is the reason for persistence and hypoxia. Nephrology is following. Patient should receive standard dialysis at this point. It does not appear patient has any more volume to remove clinically 3. Anemia of chronic disease/hypertension/CAD/history of tobacco abuse/anxiety Complicates care, management, recovery and prognosis. The patient does have a history of GI bleed in the past, but hemoglobins appear to be at her baseline. Patient's anemia does not appear to be significant to explain patient's symptoms This note was generated with [employer] dictation software. It may contain incorrect words, spelling, and punctuation that were not noted in checking the note before signing. Subjective Subjective Patient did okay overnight from a hemodynamic standpoint. Patient is still requiring high FiO2. Nursing reports patient has been trying to use incentive spirometer. Patient is reporting achieving 1 L volume with incentive spirometer, but only reaching 500 cc on my evaluation. Patient is not reporting any chest pain. Patient has tolerated p.o. diet. Objective Data Objective Data Vital Signs: Vital Signs Temp Pulse Resp BP Pulse Ox O2 Del Method O2 Flow Rate 35.9 C L 59 L 20 H 119/48 L 91 Airvo 60 08/20/23 04:00 08/20/23 05:00 08/20/23 05:00 08/20/23 05:00 08/20/23 05:00 08/20/23 05:00 08/20/23 05:00 FiO2 90 08/20/23 05:00 Oxygen Flow Rate (L/min) 60 Oxygen Delivery Method Airvo Weight: 71.2 kg Body Mass Index (BMI) 26.8 Intake & Output: Intake and Output for Last 24 Hours 08/18/23 08/19/23 08/20/23 23:59 23:59 23:59 Intake Total 650 / 650 Output Total 210 / 210 300 / 500 375 / 375 Balance -210 / -210 350 / 150 -375 / -375 Lab / Micro Data Attestation: I reviewed the patient's lab results. 08/20/23 03:08 08/20/23 03:08 Labs: Laboratory Results - last 24 hr 08/20/23 03:08: WBC 15.1 H, RBC 2.89 L, Hgb 9.2 L, Hct 28.8 L, MCV 99.7 H, MCH 31.8, MCHC 31.9 L, RDW Std Deviation 55.9 H, RDW Coeff of Lola 15.5 H, Plt Count 192, MPV 10.4, Immature Gran % (Auto) 1.600 H, Neut % (Auto) 89.2 H, Lymph % (Auto) 5.2 L, [place] % (Auto) 3.9, Eos % (Auto) 0.0, Baso % (Auto) 0.1, Absolute Neuts (auto) 13.4 H, Absolute Lymphs (auto) 0.79 L, Nucleated RBC % 0, Sodium 136, Potassium 5.0, Chloride 100, Carbon Dioxide 26.0, Anion Gap 10, BUN 84 H, Creatinine 4.52 H, Estim Creat Clear Calc 10.72, Est GFR (MDRD) Af Amer 13 L, Est GFR (MDRD) Non-Af 10 L, BUN/Creatinine Ratio 18.6, Glucose 118 H, Calcium 8.7 Micro: Microbiology 08/12/23 11:00 Fluid - Thoracentesis Fluid Gram Stain - Final 08/12/23 11:00 Fluid - Thoracentesis Fluid Body Fluid Culture - Final Culture exhibits no growth. 08/12/23 11:00 Fluid - Thoracentesis Fluid Anaerobic Culture - Final No growth in 5 days. 08/07/23 15:10 Fluid - Thoracentesis Fluid Gram Stain - Final 08/07/23 15:10 Fluid - Thoracentesis Fluid Body Fluid Culture - Final No growth aerobically. 08/07/23 15:10 Fluid - Thoracentesis Fluid Anaerobic Culture - Final No growth in 5 days. 08/08/23 10:17 Sputum, Expectorated/Coughed Gram Stain - Final 08/08/23 10:17 Sputum, Expectorated/Coughed Respiratory Culture - Final Presumptive C albicans 08/09/23 04:59 Urine, Clean Catch Streptococcus pneumoniae Antigen (M - Final 08/09/23 04:59 Urine, Clean Catch Legionella Antigen - Final 08/07/23 21:25 Mucosa - Nasopharyngeal Respiratory Panel (PCR) - Final 08/07/23 11:31 Nasal Secretion SARS-CoV-2 & FLU Antigen (Rapid) - Final 08/07/23 11:31 Mucosa - Nasopharyngeal Rapid RSV (DFA) - Final Radiography Diagnostic Testing: Radiology Impression Chest X-Ray 08/19/23 05:40 IMPRESSION: No change from 08/17/2023. Electronically Signed: Ced Beebe MD at 8:44 EST , Rhythm Strip Rhythm Strip: Sinus Rhythm Rate: 58 Physical Exam Const alert and no apparent distress Constitutional Narrative: Resting comfortably on my evaluation. No conversational dyspnea. Airvo in place. General Appearance: cooperative HEENT normocephalic, head/scalp atraumatic and moist oral mucous membranes Eyes PERRL, EOMs intact bilaterally and conjunctivae normal Neck full ROM and supple General: trachea midline Chest inspection of chest normal Resp normal respiratory effort Auscultation: Negative for rales, rhonchi or wheezes Percussion: dullness Mid: right and Lower: right Cardio regular rate, regular rhythm, S1 normal heart sound, S2 normal heart sound, no rub and no gallops Heart Sounds: murmur GI normal to inspection, nondistended, normoactive bowel sounds Extremity General Extremity: Negative for clubbing or edema Skin no rashes or lesions noted Neuro CN's II-XII intact bilaterally, moves all extremities and no focal motor deficits Psych Mood & Affect: flat affect Charges/Coding Visit Charges Inpatient E&M: 88776 Subs Hosp L3
[2023-08-20] MEDS: Ipratropium/Albuterol Sulfate 3 ML AMPUL.NEB INHALATION ×3 (07:11→18:55)
--- NOTE | 2023-08-20 08:26 | PN.HOSP_ITS ---
Subjective Subjective No issues overnight, awaiting transfer to [facility] Objective Data Objective Data Vital Signs: Vital Signs Temp Pulse Resp BP Pulse Ox O2 Del Method O2 Flow Rate 96.6 F L 54 L 18 137/43 H 94 Airvo 60 08/20/23 04:00 08/20/23 08:00 08/20/23 08:00 08/20/23 08:00 08/20/23 08:00 08/20/23 08:00 08/20/23 08:00 FiO2 80 08/20/23 08:00 Oxygen Flow Rate (L/min) 60 Oxygen Delivery Method Airvo Weight: 156 lb 11.979 oz Body Mass Index (BMI) 26.7 Intake & Output: Intake and Output for Last 24 Hours 08/19/23 08/20/23 08/21/23 03:59 03:59 03:59 Intake Total 650 / 650 Output Total 210 / 210 500 / 500 175 / 175 Balance -210 / -210 150 / 150 -175 / -175 Lab / Micro Data 08/20/23 03:08 08/20/23 03:08 Labs: Laboratory Results - last 24 hr 08/20/23 03:08: WBC 15.1 H, RBC 2.89 L, Hgb 9.2 L, Hct 28.8 L, MCV 99.7 H, MCH 31.8, MCHC 31.9 L, RDW Std Deviation 55.9 H, RDW Coeff of Lola 15.5 H, Plt Count 192, MPV 10.4, Immature Gran % (Auto) 1.600 H, Neut % (Auto) 89.2 H, Lymph % (Auto) 5.2 L, [place] % (Auto) 3.9, Eos % (Auto) 0.0, Baso % (Auto) 0.1, Absolute Neuts (auto) 13.4 H, Absolute Lymphs (auto) 0.79 L, Nucleated RBC % 0, Sodium 136, Potassium 5.0, Chloride 100, Carbon Dioxide 26.0, Anion Gap 10, BUN 84 H, Creatinine 4.52 H, Estim Creat Clear Calc 10.72, Est GFR (MDRD) Af Amer 13 L, Est GFR (MDRD) Non-Af 10 L, BUN/Creatinine Ratio 18.6, Glucose 118 H, Calcium 8.7 Micro: Microbiology 08/12/23 11:00 Fluid - Thoracentesis Fluid Gram Stain - Final 08/12/23 11:00 Fluid - Thoracentesis Fluid Body Fluid Culture - Final Culture exhibits no growth. 08/12/23 11:00 Fluid - Thoracentesis Fluid Anaerobic Culture - Final No growth in 5 days. 08/07/23 15:10 Fluid - Thoracentesis Fluid Gram Stain - Final 08/07/23 15:10 Fluid - Thoracentesis Fluid Body Fluid Culture - Final No growth aerobically. 08/07/23 15:10 Fluid - Thoracentesis Fluid Anaerobic Culture - Final No growth in 5 days. 08/08/23 10:17 Sputum, Expectorated/Coughed Gram Stain - Final 08/08/23 10:17 Sputum, Expectorated/Coughed Respiratory Culture - Final Presumptive C albicans 08/09/23 04:59 Urine, Clean Catch Streptococcus pneumoniae Antigen (M - Final 08/09/23 04:59 Urine, Clean Catch Legionella Antigen - Final 08/07/23 21:25 Mucosa - Nasopharyngeal Respiratory Panel (PCR) - Final 08/07/23 11:31 Nasal Secretion SARS-CoV-2 & FLU Antigen (Rapid) - Final 08/07/23 11:31 Mucosa - Nasopharyngeal Rapid RSV (DFA) - Final Radiography Diagnostic Testing: Radiology Impression Chest X-Ray 08/19/23 05:40 IMPRESSION: No change from 08/17/2023. Electronically Signed: Ced Beebe MD at 8:44 EST , Rhythm Strip Rhythm Strip: Sinus Rhythm Rate: 58 Physical Exam Narrative General: Alert, Oriented x3, Cooperative, No apparent distress HEENT: Atraumatic, PERRLA, EOMI, Normocephalic Oral: Moist Mucosa Neck: Supple, No JVD Lungs: Diminished, normal air movement, No rhonchi, no wheeze, No rales Cardiovascular: Regular rate, Regular Rhythm, Normal S1, Normal S2, No murmurs Abdomen: Soft, Non Tender, Non-Distended, No Hepato-splenomegaly Extremities: Edema, Capillary Refill Less than 3 Seconds Skin: No rashes, No breakdown Musculoskeletal: No Tenderness to Palpation of Joints or Extremities Neurological: Cranial nerves II-XII grossly intact, Motor Exam 5/5 strength throughout, Sensory exam intact to light touch and pain Psych/Mental Status: Flat Assessment & Plan Assessment/Plan (1) Acute hypoxemic respiratory failure: PLAN: Plan 1. Acute on chronic hypoxic respiratory failure secondary to volume overload and bilateral pleural effusions/COPD exacerbation ? Continue with Airvo ? Appreciate pulmonology's assistance ? Continue with dialysis as already had multiple thoracentesis these ? Continue with Solu-Medrol, she completed a course of Rocephin ? Discussed the case with the MICU at [facility] they have accepted her in transfer for possible thoracic surgery evaluation 2. End-stage renal disease/anemia of chronic disease ? Stable, continue to monitor hemoglobin ? Continue with dialysis ? Appreciate nephrology's assistance 3. HTN/HLD/CAD ? Echo on this admission with an EF of 60% and no diastolic dysfunction ? Continue with her blood pressure medications ? We will monitor make adjustments as necessary ? Continue with diuresis 4. GERD ? Stable ? Continue with PPI 5. Anxiety/depression ? Stable ? Continue with Remeron and Zoloft DVT: Heparin Charges/Coding Visit Charges Inpatient E&M: 65089 Subs Hosp L2
[2023-08-20] MEDS: SEVELAMER CARBONATE 800 MG TABLET PO ×3 (08:42→17:44)
[2023-08-20] MEDS: NIFEdipine 90 MG Tablet PO ×2 (08:42→21:46)
[2023-08-20] MEDS: Folic Acid/Vitamin B Comp W-C 1 Capsule 1 CAP PO (08:42)
[2023-08-20] MEDS: guaiFENesin 1,200 MG Tablet 1200 MG PO ×2 (08:42→21:46)
[2023-08-20] MEDS: Carvedilol 25 MG Tablet PO ×2 (08:43→21:46)
[2023-08-20] MEDS: Pantoprazole Sodium 40 MG Tablet PO (08:43)
[2023-08-20] MEDS: Cholecalciferol (VIT D3) 25 MCG TABLET (1,000 UNITS) 50 MCG PO (08:43)
[2023-08-20] MEDS: Aspirin E.C. 81 MG Tablet PO (08:43)
[2023-08-20] MEDS: Furosemide 40 MG/4 ML Vial IV ×2 (08:44→17:44)
[2023-08-20] MEDS: Heparin Injection (Vial) 5,000 UNIT/ML VIAL 5000 UNIT SC ×2 (08:44→21:46)
[2023-08-20] MEDS: Clopidogrel Bisulfate 75 MG Tablet PO (08:44)
[2023-08-20] MEDS: predniSONE 20 MG Tablet 40 MG PO (08:44)
[2023-08-20] MEDS: Sertraline 50 MG Tablet 25 MG PO (08:45)
[2023-08-20] MEDS: Polyethylene Glycol 3350 17 GM PACKET PO ×2 (09:09→15:20)
[2023-08-20] MEDS: Mag Hydrox/Al Hydrox/Simeth 30 ML UDC 15 ML PO (15:23)
[2023-08-20] MEDS: oxyCODONE 5 MG Tablet PO (21:43)
[2023-08-20] MEDS: MELATONIN 3 MG TABLET PO (21:43)
[2023-08-20] MEDS: Acetaminophen 325 MG Tablet 650 MG PO (21:44)
[2023-08-20] MEDS: Mirtazapine 15 MG Tablet 7.5 MG PO (21:45)
[2023-08-20] MEDS: Atorvastatin Calcium 80 MG Tablet PO (21:45)
[2023-08-20] MEDS: Senna/Docusate Sodium 1 Tablet 2 TABLET PO (21:47)
[2023-08-21] VITALS (43 sets, daily range): BP systolic 103–291; BP diastolic 40–108; PULSE 16–68; RESP 13–71; TEMP 36–37.1; O2SAT 80–95; BMI 27.1; BMI 26.8
[2023-08-21] MEDS: Ipratropium/Albuterol Sulfate 3 ML AMPUL.NEB INHALATION ×4 (01:00→19:24)
[2023-08-21 05:45] LABS: Albumin, Serum 2.6 g/dL (3.2-5.0); BUN 93 mg/dL (7-18); BUN/Creat Ratio 18.6 RATIO (10-20); Chloride 99 mmol/L (98-107); Creatinine, Serum 5.01 mg/dL (0.55-1.02); EST Glomerular Filtration Rate 9 mL/min (>60); Est Glom Filt Rate - Afr Amer 11 mL/min (>60); Estimated Creatinine Clearance 9.67 ml/min; Glucose 97 mg/dL (74-106); Phosphorus 4.6 mg/dL (2.5-4.9); Potassium 5.2 mmol/L (3.5-5.1); Sodium Level 132 mmol/L (136-145)
--- NOTE | 2023-08-21 05:55 | RAD_ITS ---
STUDY: X-RAY CHEST REASON FOR EXAM: Female, 63 years old patient presents for follow-up of pleural effusion. TECHNIQUE: Single AP portable view of the chest. COMPARISON: August 19, 2023. FINDINGS: There is a left-sided tunneled catheter with the tip of the catheter in right atrium. Cardiac monitoring leads are present. The lungs appear expanded. Bronchovascular markings are prominent in both lungs. There may be some postobstructive atelectasis in the right upper lobe. There are bilateral pleural effusions, moderately large. There is moderate cardiac enlargement. Normal mediastinum and mackenzie. Normal visualized pulmonary arteries. There is atherosclerotic calcification of the aortic arch with tortuosity. There are diffuse degenerative changes of the visualized thoracic spine. Normal visualized ribs, clavicles, and shoulders. There is no demonstrated abnormality of the visualized soft tissue structures of the upper abdomen. RAD/Chest 1 View (Portable) IMPRESSION: Essentially unchanged appearance to bilateral pleural effusions. Electronically Signed: Janel Urias MD at 6:29 EST ,
[2023-08-21 06:00] LABS: Absolute Lymphocyte Count 1.01 X10^3/uL (0.83-4.51); Absolute Neutrophil Count 19.2 X10^3/uL (2.0-7.7); Basophil# 0.04 X10^3/uL; Basophil% 0.2 % (0-1); Eosinophil# 0.06 X10^3/uL; Eosinophils% 0.3 % (0-5); Hematocrit 28.3 % (37-47); Lymphocyte # 1.01 X10^3/ul (0.83-4.51); Lymphocyte % 4.7 % (19-41); Mean Corp Hgb Conc 31.8 g/dL (32-36); Mean Corpuscular Volume 100.7 fL (81-99); Mean Platelet Vol. 10.1 fl (6.2-12.0); Monocyte# 0.89 X10^3/uL; Monocyte% 4.1 % (0-10); NRBC Flagged by Analyzer 0 % (0-5); Neutrophil # 19.16 X10^3/uL (2.7-7.7); Platelet Count 218 K/mm3 (150-450); RBC Distribution Width CV 15.4 % (11.6-14.6); RBC Distribution Width SD 56.7 fl (35.1-43.9); Red Blood Count 2.81 M/mm3 (4.2-5.4); White Blood Count 21.5 K/mm3 (4.4-11.0)
--- NOTE | 2023-08-21 07:09 | PN.CC_ITS ---
Assessment & Plan Assessment/Plan (1) Bilateral pleural effusion: (2) Acute hypoxemic respiratory failure: PLAN: Plan RECOMMENDATIONS: 1. Routine dialysis per nephrology. Appears euvolemic 2. Continue to wean supplemental oxygen to maintain saturations at or above 90%. 3. Completed antibiotic course. Monitor clinically 4. Continue bronchodilators. Wean steroids over the next 9-12 days 5. Encourage incentive spirometer use and mobilize patient as tolerated. 6. Await transfer for CT surgery evaluation. IMPRESSIONS: 1. Acute on chronic hypoxic respiratory failure secondary to fluid overload with bilateral pleural effusions Unclear if patient has an element of trapped lung. The patient has a total of 4 thoracentesis procedures, to each side, with rapid reaccumulation and fluid studies consistent with a transudate. Continue to wean supplemental oxygen as tolerated. The patient is a smoker with some concern of COPD, so the use of steroids and breathing treatments would be appropriate. Chest x-ray shows persistence of right pleural effusion despite 4 thoracentesis procedures. Patient continues to have shunt physiology leading to high oxygen requirements. Conservative measures have not been successful. Patient may need chest tube with fibrinolytic versus VATS procedure. No bed reported available at a tertiary facility at this time. Hopefully 1 will become available soon given the passing of the holiday weekend. 2. End-stage renal disease on hemodialysis Continue ongoing hemodialysis support per nephrology recommendations. Patient has had over 12 L removed over the course of the hospitalization and still has a pleural effusion. Pleural effusion was transudate, but patient is starting to have more hypotension associated with volume removal. Patient does not have significant edema, so it is unclear if fluid overload is the reason for persistence and hypoxia. Nephrology is following. Patient should receive standard dialysis at this point. It does not appear patient has any more volume to remove clinically 3. Anemia of chronic disease/hypertension/CAD/history of tobacco abuse/anxiety Complicates care, management, recovery and prognosis. The patient does have a history of GI bleed in the past, but hemoglobins appear to be at her baseline. Patient's anemia does not appear to be significant to explain p atient's symptoms This note was generated with [employer] dictation software. It may contain incorrect words, spelling, and punctuation that were not noted in checking the note before signing. Subjective Subjective Patient did okay overnight. Patient still requiring high oxygen by Airvo to maintain saturations. Patient has been working on incentive spirometer. No hemodynamic issues overnight. Patient likely having hemodialysis today. No word on transfer to tertiary center. Objective Data Objective Data Morning chest x-ray shows continued collapse of the right lower lobe along with the pleural effusion. Minimal left effusion noted. Vital Signs: Vital Signs Temp Pulse Resp BP Pulse Ox O2 Del Method O2 Flow Rate 36.0 C L 54 L 16 140/51 H 93 Airvo 60 08/21/23 05:00 08/21/23 06:00 08/21/23 06:00 08/21/23 06:00 08/21/23 06:00 08/21/23 06:00 08/21/23 06:00 FiO2 80 08/21/23 06:00 Oxygen Flow Rate (L/min) 60 Oxygen Delivery Method Airvo Weight: 72.1 kg Body Mass Index (BMI) 27.1 Intake & Output: Intake and Output for Last 24 Hours 08/19/23 08/20/23 08/21/23 23:59 23:59 23:59 Intake Total 650 / 650 360 / 360 Output Total 300 / 500 425 / 425 Balance 350 / 150 -65 / -65 Lab / Micro Data Attestation: I reviewed the patient's lab results. 08/21/23 05:45 08/21/23 05:00 Labs: Laboratory Results - last 24 hr 08/21/23 05:00: Sodium 132 L, Potassium 5.2 H, Chloride 99, Carbon Dioxide 22.0, BUN 93 H, Creatinine 5.01 H, Estim Creat Clear Calc 9.67, Est GFR (MDRD) Af Amer 11 L, Est GFR (MDRD) Non-Af 9 L, BUN/Creatinine Ratio 18.6, Glucose 97, Calcium 9.0, Phosphorus 4.6, Albumin 2.6 L 08/21/23 05:45: WBC 21.5 H, RBC 2.81 L, Hgb 9.0 L, Hct 28.3 L, MCV 100.7 H, MCH 32.0, MCHC 31.8 L, RDW Std Deviation 56.7 H, RDW Coeff of Lola 15.4 H, Plt Count 218, MPV 10.1, Immature Gran % (Auto) 1.700 H, Neut % (Auto) 89.0 H, Lymph % (Auto) 4.7 L, [place] % (Auto) 4.1, Eos % (Auto) 0.3, Baso % (Auto) 0.2, Absolute Neuts (auto) 19.2 H, Absolute Lymphs (auto) 1.01, Nucleated RBC % 0 Micro: Microbiology 08/12/23 11:00 Fluid - Thoracentesis Fluid Gram Stain - Final 08/12/23 11:00 Fluid - Thoracentesis Fluid Body Fluid Culture - Final Culture exhibits no growth. 08/12/23 11:00 Fluid - Thoracentesis Fluid Anaerobic Culture - Final No growth in 5 days. 08/07/23 15:10 Fluid - Thoracentesis Fluid Gram Stain - Final 08/07/23 15:10 Fluid - Thoracentesis Fluid Body Fluid Culture - Final No growth aerobically. 08/07/23 15:10 Fluid - Thoracentesis Fluid Anaerobic Culture - Final No growth in 5 days. 08/08/23 10:17 Sputum, Expectorated/Coughed Gram Stain - Final 08/08/23 10:17 Sputum, Expectorated/Coughed Respiratory Culture - Final Presumptive C albicans 08/09/23 04:59 Urine, Clean Catch Streptococcus pneumoniae Antigen (M - Final 08/09/23 04:59 Urine, Clean Catch Legionella Antigen - Final 08/07/23 21:25 Mucosa - Nasopharyngeal Respiratory Panel (PCR) - Final 08/07/23 11:31 Nasal Secretion SARS-CoV-2 & FLU Antigen (Rapid) - Final 08/07/23 11:31 Mucosa - Nasopharyngeal Rapid RSV (DFA) - Final Radiography Diagnostic Testing: Radiology Impression Chest X-Ray 08/21/23 05:55 IMPRESSION: Essentially unchanged appearance to bilateral pleural effusions. Electronically Signed: Janel Urias MD at 6:29 EST , Rhythm Strip Rhythm Strip: Sinus Rhythm Rate: 56 Physical Exam Const alert, oriented x3 and no apparent distress Constitutional Narrative: Resting comfortably on my evaluation. No conversational dyspnea. Airvo in place. General Appearance: cooperative HEENT normocephalic, head/scalp atraumatic and moist oral mucous membranes Eyes PERRL, EOMs intact bilaterally and conjunctivae normal Neck full ROM and supple General: trachea midline Chest inspection of chest normal Resp normal respiratory effort Auscultation: Negative for rales, rhonchi or wheezes Percussion: dullness Mid: right and Lower: right Cardio regular rate, regular rhythm, S1 normal heart sound, S2 normal heart sound, no rub and no gallops Heart Sounds: murmur GI normal to inspection, nondistended, normoactive bowel sounds Extremity General Extremity: Negative for clubbing or edema Skin no rashes or lesions noted Neuro CN's II-XII intact bilaterally, moves all extremities and no focal motor deficits Psych Mood & Affect: flat affect Charges/Coding Visit Charges Inpatient E&M: 21163 Subs Hosp L3
[2023-08-21] MEDS: PureFlow B 2K Dialysis Soln 1 BAG 6 BAG PF (07:48)
[2023-08-21] MEDS: 0.9% Normal Saline 1,000 ML IV.SOLN. 1000 ML OPERA.SITE (07:48)
[2023-08-21] MEDS: 0.9% Saline Lock 10 ML Syringe IV (07:49)
[2023-08-21] MEDS: Epoetin Alfa epbx 10,000 UNITS/ML 10000 UNIT IV (08:24)
--- NOTE | 2023-08-21 09:22 | PCM.PN.HOSP ---
Subjective Subjective No issues overnight, still requiring Airvo Objective Data Objective Data Vital Signs: Vital Signs Temp Pulse Resp BP Pulse Ox O2 Del Method O2 Flow Rate 97.8 F 60 17 132/47 H 94 Airvo 60 08/21/23 07:30 08/21/23 09:15 08/21/23 09:15 08/21/23 09:15 08/21/23 09:15 08/21/23 09:15 08/21/23 09:00 FiO2 92 08/21/23 09:00 Oxygen Flow Rate (L/min) 60 Oxygen Delivery Method Airvo Weight: 158 lb 15.253 oz Body Mass Index (BMI) 27.1 Intake & Output: Intake and Output for Last 24 Hours 08/20/23 08/21/23 08/22/23 03:59 03:59 03:59 Intake Total 650 / 650 360 / 360 Output Total 500 / 500 225 / 225 Balance 150 / 150 135 / 135 Lab / Micro Data 08/21/23 05:45 08/21/23 05:00 Labs: Laboratory Results - last 24 hr 08/21/23 05:00: Sodium 132 L, Potassium 5.2 H, Chloride 99, Carbon Dioxide 22.0, BUN 93 H, Creatinine 5.01 H, Estim Creat Clear Calc 9.67, Est GFR (MDRD) Af Amer 11 L, Est GFR (MDRD) Non-Af 9 L, BUN/Creatinine Ratio 18.6, Glucose 97, Calcium 9.0, Phosphorus 4.6, Albumin 2.6 L 08/21/23 05:45: WBC 21.5 H, RBC 2.81 L, Hgb 9.0 L, Hct 28.3 L, MCV 100.7 H, MCH 32.0, MCHC 31.8 L, RDW Std Deviation 56.7 H, RDW Coeff of Lola 15.4 H, Plt Count 218, MPV 10.1, Immature Gran % (Auto) 1.700 H, Neut % (Auto) 89.0 H, Lymph % (Auto) 4.7 L, [place] % (Auto) 4.1, Eos % (Auto) 0.3, Baso % (Auto) 0.2, Absolute Neuts (auto) 19.2 H, Absolute Lymphs (auto) 1.01, Nucleated RBC % 0 Micro: Microbiology 08/12/23 11:00 Fluid - Thoracentesis Fluid Gram Stain - Final 08/12/23 11:00 Fluid - Thoracentesis Fluid Body Fluid Culture - Final Culture exhibits no growth. 08/12/23 11:00 Fluid - Thoracentesis Fluid Anaerobic Culture - Final No growth in 5 days. 08/07/23 15:10 Fluid - Thoracentesis Fluid Gram Stain - Final 08/07/23 15:10 Fluid - Thoracentesis Fluid Body Fluid Culture - Final No growth aerobically. 08/07/23 15:10 Fluid - Thoracentesis Fluid Anaerobic Culture - Final No growth in 5 days. 08/08/23 10:17 Sputum, Expectorated/Coughed Gram Stain - Final 08/08/23 10:17 Sputum, Expectorated/Coughed Respiratory Culture - Final Presumptive C albicans 08/09/23 04:59 Urine, Clean Catch Streptococcus pneumoniae Antigen (M - Final 08/09/23 04:59 Urine, Clean Catch Legionella Antigen - Final 08/07/23 21:25 Mucosa - Nasopharyngeal Respiratory Panel (PCR) - Final 08/07/23 11:31 Nasal Secretion SARS-CoV-2 & FLU Antigen (Rapid) - Final 08/07/23 11:31 Mucosa - Nasopharyngeal Rapid RSV (DFA) - Final Radiography Diagnostic Testing: Radiology Impression Chest X-Ray 08/21/23 05:55 IMPRESSION: Essentially unchanged appearance to bilateral pleural effusions. Electronically Signed: Janel Urias MD at 6:29 EST Reading Location ID and State: [address] [place] [address] , Service support , Rhythm Strip Rhythm Strip: Sinus Rhythm Rate: 56 Physical Exam Narrative General: Alert, Oriented x3, Cooperative, No apparent distress HEENT: Atraumatic, PERRLA, EOMI, Normocephalic Oral: Moist Mucosa Neck: Supple, No JVD Lungs: Diminished, normal air movement, No rhonchi, no wheeze, No rales Cardiovascular: Regular rate, Regular Rhythm, Normal S1, Normal S2, No murmurs Abdomen: Soft, Non Tender, Non-Distended, No Hepato-splenomegaly Extremities: Edema, Capillary Refill Less than 3 Seconds Skin: No rashes, No breakdown Musculoskeletal: No Tenderness to Palpation of Joints or Extremities Neurological: Cranial nerves II-XII grossly intact, Motor Exam 5/5 strength throughout, Sensory exam intact to light touch and pain Psych/Mental Status: Flat Assessment & Plan Assessment/Plan (1) Acute hypoxemic respiratory failure: PLAN: Plan 1. Acute on chronic hypoxic respiratory failure secondary to volume overload and bilateral pleural effusions/COPD exacerbation ? Continue with Airvo ? Appreciate pulmonology's assistance ? Continue with dialysis as already had multiple thoracentesis these ? Continue with Solu-Medrol, she completed a course of Rocephin ? Discussed the case with the MICU at [facility] they have accepted her in transfer for possible thoracic surgery evaluation 2. End-stage renal disease/anemia of chronic disease ? Stable, continue to monitor hemoglobin ? Continue with dialysis ? Appreciate nephrology's assistance 3. HTN/HLD/CAD ? Echo on this admission with an EF of 60% and no diastolic dysfunction ? Continue with her blood pressure medications ? We will monitor make adjustments as necessary ? Continue with diuresis 4. GERD ? Stable ? Continue with PPI 5. Anxiety/depression ? Stable ? Continue with Remeron and Zoloft DVT: Heparin Charges/Coding Visit Charges Inpatient E&M: 98262 Subs Hosp L2
--- NOTE | 2023-08-21 09:49 | CPS ---
Increased her o2 to 95% per Dr Licea while she is on dialysis
[2023-08-21] MEDS: Heparin 10,000 UNITS/10 ML Vial IV (10:22)
[2023-08-21] MEDS: SEVELAMER CARBONATE 800 MG TABLET PO ×3 (10:46→17:06)
[2023-08-21] MEDS: Cholecalciferol (VIT D3) 25 MCG TABLET (1,000 UNITS) 50 MCG PO (10:46)
[2023-08-21] MEDS: Clopidogrel Bisulfate 75 MG Tablet PO (10:46)
[2023-08-21] MEDS: predniSONE 10 MG Tablet 30 MG PO (10:46)
[2023-08-21] MEDS: NIFEdipine 90 MG Tablet PO ×2 (10:46→21:55)
--- NOTE | 2023-08-21 10:46 | CASEMGMT ---
Insurance review for hospitals In-network with [facility] [employer] insurance if transfer is recommended is as follows:. [facility], [facility], [facility], [facility], [facility], [facility]), and . Alivia Burrell, Discharge Planning Asst.
[2023-08-21] MEDS: guaiFENesin 1,200 MG Tablet 1200 MG PO ×2 (10:47→21:55)
[2023-08-21] MEDS: Carvedilol 25 MG Tablet PO ×2 (10:47→21:54)
[2023-08-21] MEDS: Aspirin E.C. 81 MG Tablet PO (10:47)
[2023-08-21] MEDS: Heparin Injection (Vial) 5,000 UNIT/ML VIAL 5000 UNIT SC ×2 (10:47→21:55)
[2023-08-21] MEDS: Furosemide 40 MG/4 ML Vial IV ×2 (10:47→17:06)
[2023-08-21] MEDS: Polyethylene Glycol 3350 17 GM PACKET PO (10:48)
[2023-08-21] MEDS: Sertraline 50 MG Tablet 25 MG PO (10:48)
[2023-08-21] MEDS: Folic Acid/Vitamin B Comp W-C 1 Capsule 1 CAP PO (10:48)
[2023-08-21] MEDS: Pantoprazole Sodium 40 MG Tablet PO (10:48)
--- NOTE | 2023-08-21 11:53 | PN.RENAL_ITS ---
Subjective Subjective Doing about the same, on high flow NC No edema 146/76 Objective Data Objective Data Vital Signs: Vital Signs Temp Pulse Resp BP Pulse Ox O2 Del Method O2 Flow Rate 97.8 F 65 24 H 146/53 H 92 Airvo 60 08/21/23 07:30 08/21/23 11:00 08/21/23 11:00 08/21/23 11:00 08/21/23 11:00 08/21/23 11:00 08/21/23 11:00 FiO2 95 08/21/23 11:00 Oxygen Flow Rate (L/min) 60 Oxygen Delivery Method Airvo Weight: 71.3 kg Body Mass Index (BMI) 26.8 Intake & Output: Intake and Output for Last 24 Hours 08/19/23 08/20/23 08/21/23 23:59 23:59 23:59 Intake Total 650 / 650 360 / 360 Output Total 300 / 500 425 / 425 750 / 750 Balance 350 / 150 -65 / -65 -750 / -750 Lab / Micro Data Attestation: I reviewed the patient's lab results. 08/21/23 05:45 08/21/23 05:00 Labs: Laboratory Results - last 24 hr 08/21/23 05:00: Sodium 132 L, Potassium 5.2 H, Chloride 99, Carbon Dioxide 22.0, BUN 93 H, Creatinine 5.01 H, Estim Creat Clear Calc 9.67, Est GFR (MDRD) Af Amer 11 L, Est GFR (MDRD) Non-Af 9 L, BUN/Creatinine Ratio 18.6, Glucose 97, Calcium 9.0, Phosphorus 4.6, Albumin 2.6 L 08/21/23 05:45: WBC 21.5 H, RBC 2.81 L, Hgb 9.0 L, Hct 28.3 L, MCV 100.7 H, MCH 32.0, MCHC 31.8 L, RDW Std Deviation 56.7 H, RDW Coeff of Lola 15.4 H, Plt Count 218, MPV 10.1, Immature Gran % (Auto) 1.700 H, Neut % (Auto) 89.0 H, Lymph % (Auto) 4.7 L, Monroe % (Auto) 4.1, Eos % (Auto) 0.3, Baso % (Auto) 0.2, Absolute Neuts (auto) 19.2 H, Absolute Lymphs (auto) 1.01, Nucleated RBC % 0 Micro: Microbiology 08/12/23 11:00 Fluid - Thoracentesis Fluid Gram Stain - Final 08/12/23 11:00 Fluid - Thoracentesis Fluid Body Fluid Culture - Final Culture exhibits no growth. 08/12/23 11:00 Fluid - Thoracentesis Fluid Anaerobic Culture - Final No growth in 5 days. 08/07/23 15:10 Fluid - Thoracentesis Fluid Gram Stain - Final 08/07/23 15:10 Fluid - Thoracentesis Fluid Body Fluid Culture - Final No growth aerobically. 08/07/23 15:10 Fluid - Thoracentesis Fluid Anaerobic Culture - Final No growth in 5 days. 08/08/23 10:17 Sputum, Expectorated/Coughed Gram Stain - Final 08/08/23 10:17 Sputum, Expectorated/Coughed Respiratory Culture - Final Presumptive C albicans 08/09/23 04:59 Urine, Clean Catch Streptococcus pneumoniae Antigen (M - Final 08/09/23 04:59 Urine, Clean Catch Legionella Antigen - Final 08/07/23 21:25 Mucosa - Nasopharyngeal Respiratory Panel (PCR) - Final 08/07/23 11:31 Nasal Secretion SARS-CoV-2 & FLU Antigen (Rapid) - Final 08/07/23 11:31 Mucosa - Nasopharyngeal Rapid RSV (DFA) - Final Radiography Diagnostic Testing: Radiology Impression Chest X-Ray 08/21/23 05:55 IMPRESSION: Essentially unchanged appearance to bilateral pleural effusions. Electronically Signed: Janel Urias MD at 6:29 EST Reading Location ID and State: [address] [place] [address] , Service support , Rhythm Strip Rhythm Strip: Sinus Rhythm Rate: 56 Physical Exam Const alert, oriented x3, no apparent distress and average body habitus HEENT normocephalic Head and Scalp: atraumatic Neck no lymphadenopathy Resp no use of accessory muscles Resp Narrative: diminished BS Auscultation: diminished lung sounds Cardio regular rate GI non-tender Auscultation: normoactive bowel sounds Assessment & Plan Assessment/Plan (1) ESRD (end stage renal disease): PLAN: Had dialysis today, tolerated well, appears euvolemic by exam. Next Tx witll be
[2023-08-21] MEDS: oxyCODONE 5 MG Tablet PO (13:06)
[2023-08-21] MEDS: Mirtazapine 15 MG Tablet 7.5 MG PO (21:55)
[2023-08-21] MEDS: Atorvastatin Calcium 80 MG Tablet PO (21:55)
[2023-08-22] VITALS (30 sets, daily range): BP systolic 111–167; BP diastolic 46–79; PULSE 53–72; RESP 14–24; TEMP 36.2–36.4; O2SAT 88–99; BMI 27.3
[2023-08-22] MEDS: Ipratropium/Albuterol Sulfate 3 ML AMPUL.NEB INHALATION ×3 (07:10→18:55)
[2023-08-22] MEDS: predniSONE 10 MG Tablet 30 MG PO (08:01)
[2023-08-22] MEDS: Aspirin E.C. 81 MG Tablet PO (08:01)
[2023-08-22] MEDS: SEVELAMER CARBONATE 800 MG TABLET PO ×3 (08:02→16:47)
[2023-08-22] MEDS: NIFEdipine 90 MG Tablet PO ×2 (08:02→20:35)
[2023-08-22] MEDS: Cholecalciferol (VIT D3) 25 MCG TABLET (1,000 UNITS) 50 MCG PO (08:02)
[2023-08-22] MEDS: Pantoprazole Sodium 40 MG Tablet PO (08:03)
[2023-08-22] MEDS: Sertraline 50 MG Tablet 25 MG PO (08:03)
[2023-08-22] MEDS: Carvedilol 25 MG Tablet PO ×2 (08:03→20:36)
[2023-08-22] MEDS: Heparin Injection (Vial) 5,000 UNIT/ML VIAL 5000 UNIT SC ×2 (08:04→20:35)
[2023-08-22] MEDS: Polyethylene Glycol 3350 17 GM PACKET PO (08:04)
[2023-08-22] MEDS: Folic Acid/Vitamin B Comp W-C 1 Capsule 1 CAP PO (08:04)
[2023-08-22] MEDS: guaiFENesin 1,200 MG Tablet 1200 MG PO ×2 (08:04→20:36)
[2023-08-22] MEDS: 0.9% Saline Lock 10 ML Syringe IV ×2 (08:10→16:48)
[2023-08-22] MEDS: Furosemide 40 MG/4 ML Vial IV ×2 (08:12→16:48)
[2023-08-22] MEDS: Clopidogrel Bisulfate 75 MG Tablet PO (08:24)
--- NOTE | 2023-08-22 09:08 | PCA ---
called [facility] they said they are still waiting on an icu bed and will let us know when one come available.
--- NOTE | 2023-08-22 09:09 | PCM.PN.HOSP ---
Subjective Subjective No issues overnight Objective Data Objective Data Vital Signs: Vital Signs Temp Pulse Resp BP Pulse Ox O2 Del Method O2 Flow Rate 97.4 F L 63 16 137/53 H 91 Airvo 60 08/22/23 00:00 08/22/23 07:10 08/22/23 07:10 08/22/23 07:00 08/22/23 07:10 08/22/23 07:10 08/22/23 07:10 FiO2 80 08/22/23 07:10 Oxygen Flow Rate (L/min) 60 Oxygen Delivery Method Airvo Weight: 160 lb 0.889 oz Body Mass Index (BMI) 27.3 Intake & Output: Intake and Output for Last 24 Hours 08/21/23 08/22/23 08/23/23 03:59 03:59 03:59 Intake Total 360 / 360 300 / 300 Output Total 225 / 225 900 / 900 Balance 135 / 135 -600 / -600 Lab / Micro Data 08/21/23 05:45 08/21/23 05:00 Micro: Microbiology 08/12/23 11:00 Fluid - Thoracentesis Fluid Gram Stain - Final 08/12/23 11:00 Fluid - Thoracentesis Fluid Body Fluid Culture - Final Culture exhibits no growth. 08/12/23 11:00 Fluid - Thoracentesis Fluid Anaerobic Culture - Final No growth in 5 days. 08/07/23 15:10 Fluid - Thoracentesis Fluid Gram Stain - Final 08/07/23 15:10 Fluid - Thoracentesis Fluid Body Fluid Culture - Final No growth aerobically. 08/07/23 15:10 Fluid - Thoracentesis Fluid Anaerobic Culture - Final No growth in 5 days. 08/08/23 10:17 Sputum, Expectorated/Coughed Gram Stain - Final 08/08/23 10:17 Sputum, Expectorated/Coughed Respiratory Culture - Final Presumptive C albicans 08/09/23 04:59 Urine, Clean Catch Streptococcus pneumoniae Antigen (M - Final 08/09/23 04:59 Urine, Clean Catch Legionella Antigen - Final 08/07/23 21:25 Mucosa - Nasopharyngeal Respiratory Panel (PCR) - Final 08/07/23 11:31 Nasal Secretion SARS-CoV-2 & FLU Antigen (Rapid) - Final 08/07/23 11:31 Mucosa - Nasopharyngeal Rapid RSV (DFA) - Final Rhythm Strip Rhythm Strip: Sinus Rhythm Rate: 56 Physical Exam Narrative General: Alert, Oriented x3, Cooperative, No apparent distress HEENT: Atraumatic, PERRLA, EOMI, Normocephalic Oral: Moist Mucosa Neck: Supple, No JVD Lungs: Diminished, normal air movement, No rhonchi, no wheeze, No rales Cardiovascular: Regular rate, Regular Rhythm, Normal S1, Normal S2, No murmurs Abdomen: Soft, Non Tender, Non-Distended, No Hepato-splenomegaly Extremities: Edema, Capillary Refill Less than 3 Seconds Skin: No rashes, No breakdown Musculoskeletal: No Tenderness to Palpation of Joints or Extremities Neurological: Cranial nerves II-XII grossly intact, Motor Exam 5/5 strength throughout, Sensory exam intact to light touch and pain Psych/Mental Status: Flat Assessment & Plan Assessment/Plan (1) Acute hypoxemic respiratory failure: PLAN: Plan 1. Acute on chronic hypoxic respiratory failure secondary to volume overload and bilateral pleural effusions/COPD exacerbation ? Continue with Airvo ? Appreciate pulmonology's assistance ? Continue with dialysis as already had multiple thoracentesis these ? Continue with Solu-Medrol, she completed a course of Rocephin ? Discussed the case with the MICU at [facility] they have accepted her in transfer for possible thoracic surgery evaluation 2. End-stage renal disease/anemia of chronic disease ? Stable, continue to monitor hemoglobin ? Continue with dialysis ? Appreciate nephrology's assistance 3. HTN/HLD/CAD ? Echo on this admission with an EF of 60% and no diastolic dysfunction ? Continue with her blood pressure medications ? We will monitor make adjustments as necessary ? Continue with diuresis 4. GERD ? Stable ? Continue with PPI 5. Anxiety/depression ? Stable ? Continue with Remeron and Zoloft DVT: Heparin Charges/Coding Visit Charges Inpatient E&M: 30768 Subs Hosp L2
--- NOTE | 2023-08-22 10:19 | PCM.PN.INT ---
Assessment & Plan Assessment/Plan (1) Bilateral pleural effusion: (2) Acute hypoxemic respiratory failure: PLAN: Plan RECOMMENDATIONS: 1. Ongoing dialysis per nephrology recommendations. 2. Continue to wean FiO2 to maintain oxygen saturations at or above 90%. 3. Continue bronchodilators. Wean steroids over the next 9-12 days 4. Encourage incentive spirometer use and mobilize patient as tolerated. 5. Await transfer for CT surgery evaluation. IMPRESSIONS: 1. Acute on chronic hypoxic respiratory failure secondary to fluid overload with bilateral pleural effusions Unclear if patient has an element of trapped lung. The patient has a total of 4 thoracentesis procedures, to each side, with rapid reaccumulation and fluid studies consistent with a transudate. Continue to wean supplemental oxygen as tolerated. The patient is a smoker with some concern of COPD, so the use of steroids and breathing treatments would be appropriate. Chest x-ray shows persistence of right pleural effusion despite 4 thoracentesis procedures. The patient continues to have shunt physiology leading to high oxygen requirements. Conservative measures have not been successful. Accordingly, the patient is awaiting transfer to [facility] for thoracic surgery evaluation. 2. End-stage renal disease on hemodialysis Continue ongoing hemodialysis support per nephrology recommendations. The patient has had a significant amount of fluid removed over the course of the hospitalization and still has a pleural effusion. The pleural effusion was transudate, but patient is starting to have more hypotension associated with volume removal. Nephrology is following. 3. Anemia of chronic disease/hypertension/CAD/history of tobacco abuse/anxiety Complicates care, management, recovery and prognosis. The patient does have a history of GI bleed in the past, but hemoglobins appear to be at her baseline. Continue supportive measures as noted above. This note was generated with [employer] dictation software. It may contain incorrect words, spelling, and punctuation that were not noted in checking the note before signing. Subjective Subjective The patient was seen and examined at the bedside this morning. Events from the last 24 hours have been reviewed. The patient is currently afebrile, hemodynamically stable and maintaining appropriate oxygen saturations on heated high flow oxygen with an FiO2 requirement of 80% and flow rate of 60 L/min. She is still awaiting transfer to [facility]. The patient is documented to be overall net -12.4 L for the hospitalization. Objective Data Objective Data The patient's most recent lab work, culture data and imaging studies have all been personally reviewed. Surface echocardiogram demonstrated an ejection fraction of 60%. Infectious workup has been unrevealing to date. Vital Signs: Vital Signs Temp Pulse Resp BP Pulse Ox O2 Del Method O2 Flow Rate 97.4 F L 63 16 137/53 H 91 Airvo 60 08/22/23 00:00 08/22/23 07:10 08/22/23 07:10 08/22/23 07:00 08/22/23 07:10 08/22/23 07:10 08/22/23 07:10 FiO2 80 08/22/23 07:10 Oxygen Flow Rate (L/min) 60 Oxygen Delivery Method Airvo Weight: 160 lb 0.889 oz Body Mass Index (BMI) 27.3 Intake & Output: Intake and Output for Last 24 Hours 08/20/23 08/21/23 08/22/23 23:59 23:59 23:59 Intake Total 360 / 360 300 / 300 Output Total 425 / 425 750 / 900 150 / 150 Balance -65 / -65 -750 / -600 150 / 150 Lab / Micro Data Attestation: I reviewed the patient's lab results. 08/21/23 05:45 08/21/23 05:00 Labs: Laboratory Results - last 24 hr 08/07/23 15:10: Fluid pH 7.2, Fluid Amylase 29 08/14/23 03:58: WBC 14.6 H, RBC 3.35 L, Hgb 10.4 L, Hct 33.1 L, MCV 98.8, MCH 31.0, MCHC 31.4 L, RDW Std Deviation 54.4 H, RDW Coeff of Lola 15.0 H, Plt Count 291, MPV 9.4, Immature Gran % (Auto) 4.800 H, Neut % (Auto) 84.9 H, Lymph % (Auto) 6.2 L, Graves % (Auto) 3.5, Eos % (Auto) 0.1, Baso % (Auto) 0.5, Absolute Neuts (auto) 12.4 H, Absolute Lymphs (auto) 0.90, Nucleated RBC % 0, Sodium 136, Potassium 5.3 H, Chloride 100, Carbon Dioxide 24.0, Anion Gap 12, BUN 86 H, Creatinine 4.91 H, Estim Creat Clear Calc 9.86, Est GFR (MDRD) Af Amer 11 L, Est GFR (MDRD) Non-Af 9 L, BUN/Creatinine Ratio 17.5, Glucose 106, Calcium 9.0 Micro: Microbiology 08/12/23 11:00 Fluid - Thoracentesis Fluid Gram Stain - Final 08/12/23 11:00 Fluid - Thoracentesis Fluid Body Fluid Culture - Final Culture exhibits no growth. 08/12/23 11:00 Fluid - Thoracentesis Fluid Anaerobic Culture - Final No growth in 5 days. 08/07/23 15:10 Fluid - Thoracentesis Fluid Gram Stain - Final 08/07/23 15:10 Fluid - Thoracentesis Fluid Body Fluid Culture - Final No growth aerobically. 08/07/23 15:10 Fluid - Thoracentesis Fluid Anaerobic Culture - Final No growth in 5 days. 08/08/23 10:17 Sputum, Expectorated/Coughed Gram Stain - Final 08/08/23 10:17 Sputum, Expectorated/Coughed Respiratory Culture - Final Presumptive C albicans 08/09/23 04:59 Urine, Clean Catch Streptococcus pneumoniae Antigen (M - Final 08/09/23 04:59 Urine, Clean Catch Legionella Antigen - Final 08/07/23 21:25 Mucosa - Nasopharyngeal Respiratory Panel (PCR) - Final 08/07/23 11:31 Nasal Secretion SARS-CoV-2 & FLU Antigen (Rapid) - Final 08/07/23 11:31 Mucosa - Nasopharyngeal Rapid RSV (DFA) - Final Radiography Diagnostic Testing: Radiology Impression Chest X-Ray 08/13/23 06:25 IMPRESSION: No interval change Electronically Signed: Raffi August MD at 10:58 EST , Rhythm Strip Rhythm Strip: Sinus Rhythm Rate: 56 Physical Exam Const alert and no apparent distress General Appearance: cooperative HEENT normocephalic and head/scalp atraumatic Eyes PERRL, EOMs intact bilaterally and conjunctivae normal Neck supple General: trachea midline Chest inspection of chest normal Resp normal respiratory effort Auscultation: diminished lung sounds Cardio regular rate and regular rhythm GI normal to inspection, nondistended, normoactive bowel sounds Extremity no clubbing, cyanosis or edema Skin no rashes or lesions noted Neuro CN's II-XII intact bilaterally and no focal motor deficits Psych Mood & Affect: flat affect Charges/Coding Visit Charges Inpatient E&M: 21388 Subs Hosp L2
[2023-08-22] MEDS: oxyCODONE 5 MG Tablet PO (14:06)
[2023-08-22] MEDS: Atorvastatin Calcium 80 MG Tablet PO (20:35)
[2023-08-22] MEDS: Mirtazapine 15 MG Tablet 7.5 MG PO (20:36)
[2023-08-22] MEDS: Mag Hydrox/Al Hydrox/Simeth 30 ML UDC 15 ML PO (20:36)
[2023-08-23] VITALS (43 sets, daily range): BP systolic 96–232; BP diastolic 41–102; PULSE 51–75; RESP 14–25; TEMP 35.7–36.4; O2SAT 90–100; BMI 26.5; BMI 26.4
[2023-08-23] MEDS: 0.9% Saline Lock 10 ML Syringe IV ×3 (03:10→17:33)
[2023-08-23] MEDS: hydrALAZINE 20 MG/ML Vial IV (03:12)
[2023-08-23] MEDS: Ipratropium/Albuterol Sulfate 3 ML AMPUL.NEB INHALATION ×3 (07:25→19:05)
[2023-08-23] MEDS: Ondansetron 4 MG/2 ML Vial IV (07:55)
[2023-08-23] MEDS: Furosemide 40 MG/4 ML Vial IV ×2 (07:56→17:32)
[2023-08-23] MEDS: Heparin Injection (Vial) 5,000 UNIT/ML VIAL 5000 UNIT SC ×2 (07:59→20:35)
[2023-08-23] MEDS: SEVELAMER CARBONATE 800 MG TABLET PO ×2 (08:00→17:32)
[2023-08-23] MEDS: Polyethylene Glycol 3350 17 GM PACKET PO (08:00)
[2023-08-23] MEDS: predniSONE 10 MG Tablet 30 MG PO (08:00)
[2023-08-23] MEDS: Pantoprazole Sodium 40 MG Tablet PO (08:00)
[2023-08-23] MEDS: Clopidogrel Bisulfate 75 MG Tablet PO (08:01)
[2023-08-23] MEDS: guaiFENesin 1,200 MG Tablet 1200 MG PO ×2 (08:01→20:35)
[2023-08-23] MEDS: Folic Acid/Vitamin B Comp W-C 1 Capsule 1 CAP PO (08:01)
[2023-08-23] MEDS: Sertraline 50 MG Tablet 25 MG PO (08:01)
[2023-08-23] MEDS: NIFEdipine 90 MG Tablet PO (08:01)
[2023-08-23] MEDS: Aspirin E.C. 81 MG Tablet PO (08:01)
[2023-08-23] MEDS: Cholecalciferol (VIT D3) 25 MCG TABLET (1,000 UNITS) 50 MCG PO (08:01)
[2023-08-23] MEDS: Carvedilol 25 MG Tablet PO ×2 (08:02→20:35)
[2023-08-23] MEDS: 0.9% Normal Saline 1,000 ML IV.SOLN. 1000 ML OPERA.SITE (08:13)
[2023-08-23] MEDS: PureFlow B 2K Dialysis Soln 1 BAG 6 BAG PF (08:13)
--- NOTE | 2023-08-23 08:51 | PCM.PN.INT ---
Assessment & Plan Assessment/Plan (1) Bilateral pleural effusion: (2) Acute hypoxemic respiratory failure: PLAN: Plan RECOMMENDATIONS: 1. Ongoing dialysis per nephrology recommendations. 2. Continue to wean FiO2 to maintain oxygen saturations at or above 90%. 3. Continue bronchodilators. Wean steroids over the next 9-12 days 4. Encourage incentive spirometer use and mobilize patient as tolerated. 5. Await transfer for CT surgery evaluation. IMPRESSIONS: 1. Acute on chronic hypoxic respiratory failure secondary to fluid overload with bilateral pleural effusions Unclear if patient has an element of trapped lung. The patient has a total of 4 thoracentesis procedures, to each side, with rapid reaccumulation and fluid studies consistent with a transudate. Continue to wean supplemental oxygen as tolerated. The patient is a smoker with some concern of COPD, so the use of steroids and breathing treatments would be appropriate. Chest x-ray shows persistence of right pleural effusion despite 4 thoracentesis procedures. The patient continues to have shunt physiology leading to high oxygen requirements. Conservative measures have not been successful. Accordingly, the patient is awaiting transfer to [facility] for thoracic surgery evaluation. 2. End-stage renal disease on hemodialysis Continue ongoing hemodialysis support per nephrology recommendations. The patient has had a significant amount of fluid removed over the course of the hospitalization and still has a pleural effusion. The pleural effusion was transudate, but patient is starting to have more hypotension associated with volume removal. Nephrology is following. 3. Anemia of chronic disease/hypertension/CAD/history of tobacco abuse/anxiety Complicates care, management, recovery and prognosis. The patient does have a history of GI bleed in the past, but hemoglobins appear to be at her baseline. Continue supportive measures as noted above. This note was generated with [employer] dictation software. It may contain incorrect words, spelling, and punctuation that were not noted in checking the note before signing. Subjective Subjective The patient was seen and examined at the bedside this morning. Events from the last 24 hours have been reviewed. The patient is currently afebrile, hemodynamically stable and maintaining appropriate oxygen saturations on heated high flow with an FiO2 requirement of 85% and flow rate of 60 L/min. The patient is still awaiting transfer to a tertiary care facility for thoracic surgery evaluation. She remains clinically unchanged from a respiratory perspective. Objective Data Objective Data The patient's most recent lab work, culture data and imaging studies have all been personally reviewed. Surface echocardiogram demonstrated an ejection fraction of 60%. Infectious workup has been unrevealing to date. Vital Signs: Vital Signs Temp Pulse Resp BP Pulse Ox O2 Del Method O2 Flow Rate 96.7 F L 58 L 17 120/46 L 97 Airvo 60 08/23/23 07:50 08/23/23 08:44 08/23/23 08:44 08/23/23 08:30 08/23/23 08:44 08/23/23 08:44 08/23/23 07:50 FiO2 85 08/23/23 07:50 Oxygen Flow Rate (L/min) 60 Oxygen Delivery Method Airvo Weight: 155 lb 10.342 oz Body Mass Index (BMI) 26.5 Intake & Output: Intake and Output for Last 24 Hours 08/21/23 08/22/23 08/23/23 23:59 23:59 23:59 Intake Total 800 / 800 Output Total 750 / 900 150 / 150 200 / 200 Balance -750 / -600 650 / 650 -200 / -200 Lab / Micro Data Attestation: I reviewed the patient's lab results. 08/21/23 05:45 08/21/23 05:00 Labs: Laboratory Results - last 24 hr 08/07/23 15:10: Fluid pH 7.2, Fluid Amylase 29 08/14/23 03:58: WBC 14.6 H, RBC 3.35 L, Hgb 10.4 L, Hct 33.1 L, MCV 98.8, MCH 31.0, MCHC 31.4 L, RDW Std Deviation 54.4 H, RDW Coeff of Lola 15.0 H, Plt Count 291, MPV 9.4, Immature Gran % (Auto) 4.800 H, Neut % (Auto) 84.9 H, Lymph % (Auto) 6.2 L, Eddy % (Auto) 3.5, Eos % (Auto) 0.1, Baso % (Auto) 0.5, Absolute Neuts (auto) 12.4 H, Absolute Lymphs (auto) 0.90, Nucleated RBC % 0, Sodium 136, Potassium 5.3 H, Chloride 100, Carbon Dioxide 24.0, Anion Gap 12, BUN 86 H, Creatinine 4.91 H, Estim Creat Clear Calc 9.86, Est GFR (MDRD) Af Amer 11 L, Est GFR (MDRD) Non-Af 9 L, BUN/Creatinine Ratio 17.5, Glucose 106, Calcium 9.0 Micro: Microbiology 08/12/23 11:00 Fluid - Thoracentesis Fluid Gram Stain - Final 08/12/23 11:00 Fluid - Thoracentesis Fluid Body Fluid Culture - Final Culture exhibits no growth. 08/12/23 11:00 Fluid - Thoracentesis Fluid Anaerobic Culture - Final No growth in 5 days. 08/07/23 15:10 Fluid - Thoracentesis Fluid Gram Stain - Final 08/07/23 15:10 Fluid - Thoracentesis Fluid Body Fluid Culture - Final No growth aerobically. 08/07/23 15:10 Fluid - Thoracentesis Fluid Anaerobic Culture - Final No growth in 5 days. 08/08/23 10:17 Sputum, Expectorated/Coughed Gram Stain - Final 08/08/23 10:17 Sputum, Expectorated/Coughed Respiratory Culture - Final Presumptive C albicans 08/09/23 04:59 Urine, Clean Catch Streptococcus pneumoniae Antigen (M - Final 08/09/23 04:59 Urine, Clean Catch Legionella Antigen - Final 08/07/23 21:25 Mucosa - Nasopharyngeal Respiratory Panel (PCR) - Final 08/07/23 11:31 Nasal Secretion SARS-CoV-2 & FLU Antigen (Rapid) - Final 08/07/23 11:31 Mucosa - Nasopharyngeal Rapid RSV (DFA) - Final Radiography Diagnostic Testing: Radiology Impression Chest X-Ray 08/13/23 06:25 IMPRESSION: No interval change Electronically Signed: Raffi August MD at 10:58 EST Reading Location ID and State: [facility] / [place] , Service support , Rhythm Strip Rhythm Strip: Sinus Rhythm Rate: 56 Physical Exam Const alert and no apparent distress General Appearance: cooperative HEENT normocephalic and head/scalp atraumatic Eyes PERRL, EOMs intact bilaterally and conjunctivae normal Neck supple General: trachea midline Chest inspection of chest normal Resp normal respiratory effort Auscultation: diminished lung sounds Cardio regular rate and regular rhythm GI normal to inspection, nondistended, normoactive bowel sounds Extremity no clubbing, cyanosis or edema Skin no rashes or lesions noted Neuro CN's II-XII intact bilaterally and no focal motor deficits Psych Mood & Affect: flat affect Charges/Coding Visit Charges Inpatient E&M: 95484 Subs Hosp L2
--- NOTE | 2023-08-23 09:48 | PCM.PN.REN ---
Subjective Subjective Seen on dialysis. Tolerating treatment well. Objective Data Objective Data Vital Signs: Vital Signs Temp Pulse Resp BP Pulse Ox O2 Del Method O2 Flow Rate 96.7 F L 52 L 15 103/45 L 94 Airvo 60 08/23/23 07:50 08/23/23 09:30 08/23/23 09:30 08/23/23 09:30 08/23/23 09:30 08/23/23 09:30 08/23/23 07:50 FiO2 85 08/23/23 07:50 Oxygen Flow Rate (L/min) 60 Oxygen Delivery Method Airvo Weight: 70.6 kg Body Mass Index (BMI) 26.5 Intake & Output: Intake and Output for Last 24 Hours 08/21/23 08/22/23 08/23/23 23:59 23:59 23:59 Intake Total 800 / 800 Output Total 750 / 900 150 / 150 200 / 200 Balance -750 / -600 650 / 650 -200 / -200 Lab / Micro Data 08/21/23 05:45 08/21/23 05:00 Micro: Microbiology 08/12/23 11:00 Fluid - Thoracentesis Fluid Gram Stain - Final 08/12/23 11:00 Fluid - Thoracentesis Fluid Body Fluid Culture - Final Culture exhibits no growth. 08/12/23 11:00 Fluid - Thoracentesis Fluid Anaerobic Culture - Final No growth in 5 days. 08/07/23 15:10 Fluid - Thoracentesis Fluid Gram Stain - Final 08/07/23 15:10 Fluid - Thoracentesis Fluid Body Fluid Culture - Final No growth aerobically. 08/07/23 15:10 Fluid - Thoracentesis Fluid Anaerobic Culture - Final No growth in 5 days. 08/08/23 10:17 Sputum, Expectorated/Coughed Gram Stain - Final 08/08/23 10:17 Sputum, Expectorated/Coughed Respiratory Culture - Final Presumptive C albicans 08/09/23 04:59 Urine, Clean Catch Streptococcus pneumoniae Antigen (M - Final 08/09/23 04:59 Urine, Clean Catch Legionella Antigen - Final 08/07/23 21:25 Mucosa - Nasopharyngeal Respiratory Panel (PCR) - Final 08/07/23 11:31 Nasal Secretion SARS-CoV-2 & FLU Antigen (Rapid) - Final 08/07/23 11:31 Mucosa - Nasopharyngeal Rapid RSV (DFA) - Final Rhythm Strip Rhythm Strip: Sinus Rhythm Rate: 56 Physical Exam Narrative Alert and oriented S1 S2 RRR LS diminished Abdomen soft No edema Tunneled HD catheter accessed for dialysis Right UA AVF +thrill and bruit Assessment & Plan Assessment/Plan (1) ESRD (end stage renal disease): PLAN: -ESRD on HD TTS outpatient schedule. HD today. Had been attempting for more than 1L UF but due to low bps, cramping UF goal reduced. Hold coreg and nifedipine mornings of dialysis. Dry weight has been lowered. Continue lasix. Serologies; p-ANCA, c-ANCA and SEAN screen are all negative -Anemia of chronic disease; receiving SANTINO with HD today -Waiting transfer to tertiary center. Patient continues to require significant amount of supplemental oxygen. Patient had total 4 thoracentesis. On steroids, breathing treatments. Echo bubble contrast study negative for right to left interatrial shunt, EF 60%
[2023-08-23] MEDS: Epoetin Alfa epbx 10,000 UNITS/ML 10000 UNIT IV (10:32)
[2023-08-23] MEDS: oxyCODONE 5 MG Tablet PO ×2 (11:14→20:40)
[2023-08-23] MEDS: Heparin 10,000 UNITS/10 ML Vial IV (11:21)
--- NOTE | 2023-08-23 16:44 | PN.HOSP_ITS ---
Reason for Visit Reason for Visit: Diagnoses Anemia in other chronic diseases classified elsewhere (08/07/23) Essential (primary) hypertension (08/07/23) Acute pericarditis, unspecified (08/07/23) Pleural effusion, not elsewhere classified (08/07/23) Acute respiratory failure with hypoxia (08/07/23) Gastro-esophageal reflux disease without esophagitis (08/07/23) End stage renal disease (08/07/23) Dependence on renal dialysis (08/07/23) Objective Data Objective Data Vital Signs: Vital Signs Temp Pulse Resp BP Pulse Ox O2 Del Method O2 Flow Rate 97.4 F L 62 20 H 111/75 96 Airvo 60 08/23/23 12:00 08/23/23 15:56 08/23/23 15:56 08/23/23 12:00 08/23/23 15:56 08/23/23 12:00 08/23/23 12:00 FiO2 83 08/23/23 15:56 Oxygen Flow Rate (L/min) 60 Oxygen Delivery Method Airvo Weight: 154 lb 8.705 oz Body Mass Index (BMI) 26.4 Intake & Output: Intake and Output for Last 24 Hours 08/21/23 08/22/23 08/23/23 23:59 23:59 23:59 Intake Total 800 / 800 100 / 100 Output Total 750 / 900 150 / 150 1900 / 1900 Balance -750 / -600 650 / 650 -1800 / -1800 Lab / Micro Data 08/21/23 05:45 08/21/23 05:00 Micro: Microbiology 08/12/23 11:00 Fluid - Thoracentesis Fluid Gram Stain - Final 08/12/23 11:00 Fluid - Thoracentesis Fluid Body Fluid Culture - Final Culture exhibits no growth. 08/12/23 11:00 Fluid - Thoracentesis Fluid Anaerobic Culture - Final No growth in 5 days. 08/07/23 15:10 Fluid - Thoracentesis Fluid Gram Stain - Final 08/07/23 15:10 Fluid - Thoracentesis Fluid Body Fluid Culture - Final No growth aerobically. 08/07/23 15:10 Fluid - Thoracentesis Fluid Anaerobic Culture - Final No growth in 5 days. 08/08/23 10:17 Sputum, Expectorated/Coughed Gram Stain - Final 08/08/23 10:17 Sputum, Expectorated/Coughed Respiratory Culture - Final Presumptive C albicans 08/09/23 04:59 Urine, Clean Catch Streptococcus pneumoniae Antigen (M - Final 08/09/23 04:59 Urine, Clean Catch Legionella Antigen - Final 08/07/23 21:25 Mucosa - Nasopharyngeal Respiratory Panel (PCR) - Final 08/07/23 11:31 Nasal Secretion SARS-CoV-2 & FLU Antigen (Rapid) - Final 08/07/23 11:31 Mucosa - Nasopharyngeal Rapid RSV (DFA) - Final Rhythm Strip Rhythm Strip: Sinus Rhythm Rate: 56 Physical Exam Narrative Seen and examined. Patient is short of breath, dyspnea at rest. Was on 85 to 90% FiO2 Airvo. Tachypneic Undergoing hemodialysis Physical exam General: Alert, Oriented x3, Cooperative HEENT: Atraumatic, PERRLA, EOMI, Normocephalic Oral: Oral mucosa dry no Gingival or Mucosal Lesions/ Ulcerations Neck: Supple, No JVD, Negative Carotid Bruits Chest wall/lungs: Permacath on chest air entry severely diminished worse on the left side. Had thoracocentesis on left side 290 mL on 08/16. Severe hypoxia and tachypnea Cardiovascular: Regular rate, Regular Rhythm, Normal S1, Normal S2, No murmurs Abdomen: Bowel Sounds Present, Soft, Non Tender, Non-Distended : On hemodialysis no renal angle tenderness. No suprapubic tenderness. Extremities: No edema, Capillary Refill Less than 3 Seconds Skin: No rashes, No breakdown Musculoskeletal: No Tenderness to Palpation of Joints or Extremities Neurological: Cranial nerves II-XII grossly intact, DTR 2+/4. No acute focal neurological deficit. Psych/Mental Status: Flat affect Assessment & Plan Assessment/Plan (1) Acute hypoxemic respiratory failure: PLAN: Plan 1. Acute on chronic hypoxic respiratory failure secondary to volume overload and bilateral pleural effusions/COPD exacerbation ? Continue with Airvo. Patient had left-sided thoracocentesis 270 mL drained on 08/17/2023. Continue bronchodilator. Discussed with the telephone service adviser. No bed available in [facility] therefore we will try for another hospital. Patient had multiple thoracocentesis total of 4 with rapid reaccumulation. Fluid consistent with transudate. Patient continues to have a shunt physiology leading to high oxygen requirement. ? Continue with Solu-Medrol, she completed a course of Rocephin ? Patient was accepted in MICU at [facility] for thoracic surgery evaluation. Repeat chest x-ray showedBilateral pleural effusion. Possible p ostobstructive atelectasis and right upper lobe 2. End-stage renal disease/anemia of chronic disease ? Stable, continue to monitor hemoglobin ? Continue with dialysis ? Appreciate nephrology's assistance 3. HTN/HLD/CAD ? Echo on this admission with an EF of 60% and no diastolic dysfunction ? Continue with her blood pressure medications ? We will monitor make adjustments as necessary ? Continue with diuresis 4. GERD ? Stable ? Continue with PPI 5. Anxiety/depression ? Stable ? Continue with Remeron and Zoloft DVT: Heparin Charges/Coding Visit Charges Inpatient E&M: 80321 Subs Hosp L3
[2023-08-23] MEDS: Mirtazapine 15 MG Tablet 7.5 MG PO (20:35)
[2023-08-23] MEDS: Atorvastatin Calcium 80 MG Tablet PO (20:35)
[2023-08-23] MEDS: MELATONIN 3 MG TABLET PO (20:40)
--- NOTE | 2023-08-24 07:23 | DS.PCM_ITS ---
Providers Date of Admission: 08/07/23 Date of Discharge: 08/23/23 Primary Care Physician: Dr. Elvin Becerra MD Consultations 08/07/23 18:02 Consult: Nephrology Routine Consulting Provider: Adrian Vazquez Reason for Consult: esrd on HD EMERGENT Consult: No Notified: Yes Date Notified: 08/07/23 Time Notified: 18:09 Method of Notification: Text 08/11/23 08:15 Consult: Laundry Housekeeping Aide / Pulmonary Medicine Routine Consulting Provider: Pulmonary Medicine chad Belmont Reason for Consult: respiratory failure, pleural effusions EMERGENT Consult: No Notified: Yes Date Notified: 08/11/23 Time Notified: 08:15 Method of Notification: Text Reason For Visit: AHYPOXIC RESP FAILURE Diagnosis Discharge Diagnosis (1) Acute hypoxemic respiratory failure: Status: Acute Code(s): J96.01 - Acute respiratory failure with hypoxia Plan This is a 63-year-old woman with multiple comorbidities was admitted through ER [facility] for shortness of breath associated with dyspnea, cough right-sided pleuritic chest pain and unable to bring up phlegm.She was admitted in the ICU with diagnosis of acute on chronic hypoxic respiratory failure, bilateral pleural effusion more than right along with multiple comorbidities. 1. Acute on chronic hypoxic respiratory failure secondary to volume overload and bilateral pleural effusions/COPD exacerbation ? Continue with Airvo. Patient had left-sided thoracocentesis 270 mL drained on 08/17/2023. Continue bronchodilator. Discussed with the manufacturing quality manager. No bed available in [facility] therefore we will try for another hospital. Patient had multiple thoracocentesis total of 4 with rapid reaccumulation. Fluid consistent with transudate. Patient continues to have a shunt physiology leading to high oxygen requirement. ? Continue with Solu-Medrol, she completed a course of Rocephin ? Patient was accepted in MICU at [facility] for thoracic surgery evaluation. Repeat chest x-ray showedBilateral pleural effusion. Possible postobstructive atelectasis and right upper lobe 2. End-stage renal disease/anemia of chronic disease ? Stable, continue to monitor hemoglobin ? Continue with dialysis ? Appreciate nephrology's assistance 3. HTN/HLD/CAD ? Echo on this admission with an EF of 60% and no diastolic dysfunction ? Continue with her blood pressure medications ? We will monitor make adjustments as necessary ? Continue with diuresis 4. GERD ? Stable ? Continue with PPI 5. Anxiety/depression ? Stable ? Continue with Remeron and Zoloft DVT: Heparin Patient has been waiting in ICU for almost 1 week therefore I called I called [facility] and [facility] but they do not have bed available. The patient was transferred to [facility] at night on 08/24/2023. Medications at Discharge Home Medications cholecalciferol (vitamin D3) 25 mcg (1,000 unit) capsule 50 mcg PO DAILY SUPPLEMENT 10/02/21 aspirin 81 mg tablet,delayed release 81 mg PO DAILY HEART 11/14/22 atorvastatin 80 mg tablet 80 mg PO QHS CHOLESTEROL 11/14/22 carvedilol 25 mg tablet 25 mg PO BID HEART 11/14/22 clopidogrel 75 mg tablet 75 mg PO DAILY BLOOD THINNER 11/14/22 furosemide 80 mg tablet (Lasix) 80 mg PO TUTHSA FLUID 11/14/22 mirtazapine 7.5 mg tablet 7.5 mg PO QHS INSOMNIA 11/14/22 nitroglycerin 0.4 mg sublingual tablet 0.4 mg sublingual DAILY PRN CHEST PAIN 11/14/22 pantoprazole 40 mg tablet,delayed release 40 mg PO DAILY ACID REFLUX 11/14/22 sevelamer carbonate 800 mg tablet 800 mg PO TIDCM PHOSPHATE 11/14/22 vitamin B complex-vitamin C-folic acid 0.8 mg tablet (Mojgan-Kirk) 1 tab PO DAILY SUPPLEMENT 11/14/22 guaifenesin 600 mg tablet, extended release 12 hr (Mucus Relief ER) 1,200 mg (2 x 600 mg) PO Q12H COUGH #20 tabs 11/16/22 acetaminophen 325 mg capsule 650 mg PO BID PRN PAIN 08/07/23 albuterol sulfate 90 mcg/actuation aerosol inhaler (Ventolin HFA) 1 puff inhalation Q4H PRN WHEEZING 08/07/23 furosemide 80 mg tablet 80 mg PO BID FLUID 08/07/23 nifedipine 90 mg tablet,extended release 24 hr 90 mg PO BID BLOOD PRESSURE 08/07/23 sertraline 25 mg tablet 25 mg PO DAILY DEPRESSION 08/07/23 Physical Exam Narrative Please see exam finding on the progress note of 2022 Weight / BMI Weight Weight: 154 lb 8.705 oz Body Mass Index (BMI) 26.4 ABG / Lab / Microbiology Data 08/21/23 05:45 08/21/23 05:00 Microbiology: Microbiology 08/12/23 11:00 Fluid - Thoracentesis Fluid Gram Stain - Final 08/12/23 11:00 Fluid - Thoracentesis Fluid Body Fluid Culture - Final Culture exhibits no growth. 08/12/23 11:00 Fluid - Thoracentesis Fluid Anaerobic Culture - Final No growth in 5 days. 08/07/23 15:10 Fluid - Thoracentesis Fluid Gram Stain - Final 08/07/23 15:10 Fluid - Thoracentesis Fluid Body Fluid Culture - Final No growth aerobically. 08/07/23 15:10 Fluid - Thoracentesis Fluid Anaerobic Culture - Final No growth in 5 days. 08/08/23 10:17 Sputum, Expectorated/Coughed Gram Stain - Final 08/08/23 10:17 Sputum, Expectorated/Coughed Respiratory Culture - Final Presumptive C albicans 08/09/23 04:59 Urine, Clean Catch Streptococcus pneumoniae Antigen (M - Final 08/09/23 04:59 Urine, Clean Catch Legionella Antigen - Final 08/07/23 21:25 Mucosa - Nasopharyngeal Respiratory Panel (PCR) - Final 08/07/23 11:31 Nasal Secretion SARS-CoV-2 & FLU Antigen (Rapid) - Final 08/07/23 11:31 Mucosa - Nasopharyngeal Rapid RSV (DFA) - Final Meaningful Use Info Meaningful Use Diagnoses (Choose all that apply): None applicable Discharge Plan Admission Admit Date/Time: 08/07/23 14:27 Primary Reason for Your Visit: hypoxic respiratory failure Attending Provider: Aden Larry Primary Care Provider: Elvin Becerra Consulting Providers: Chris Licea; Ermias Rosenthal; Kamran Villanueva; Omar Bell; Talia Sparrow NP; Adrian Vazquez; Valentin Sanders; Shayne Ambrose Discharge Orders/Prescriptions Prescriptions: No Action cholecalciferol (vitamin D3) 25 mcg (1,000 unit) capsule 50 mcg PO DAILY atorvastatin 80 mg tablet 80 mg PO QHS carvedilol 25 mg tablet 25 mg PO BID clopidogrel 75 mg tablet 75 mg PO DAILY aspirin 81 mg tablet,delayed release (DR/EC) 81 mg PO DAILY furosemide [Lasix] 80 mg Tablet 80 mg PO TUTHSA Rx Instructions: 1 tab once daily on , , sat 1 tabe twice daily on sun, sun, sun, and sun pantoprazole 40 mg tablet,delayed release (DR/EC) 40 mg PO DAILY Mojgan-Kirk 0.8 mg tablet 1 tab PO DAILY mirtazapine 7.5 mg tablet 7.5 mg PO QHS sevelamer carbonate 800 mg tablet 800 mg PO TIDCM nitroglycerin 0.4 mg tablet, sublingual 0.4 mg sublingual DAILY PRN (Reason: CHEST PAIN ) Rx Instructions: Dissolve 1 tablet under the tongue as needed for chest pain. guaifenesin [Mucus Relief ER] 600 mg tablet extended release 12hr 1,200 mg PO Q12H Qty: 20 0RF furosemide 80 mg tablet 80 mg PO BID Rx Instructions: TAKE ONE TABLET BY MOUTH TWICE DAILY ON SUNDAYS, MONDAYS, WEDNESDAYS, FRIDAYS nifedipine 90 mg tablet extended release 24hr 90 mg PO BID sertraline 25 mg tablet 25 mg PO DAILY acetaminophen 325 mg capsule 650 mg PO BID PRN (Reason: PAIN ) albuterol sulfate [Ventolin HFA] 90 mcg/actuation HFA aerosol inhaler 1 puff inhalation Q4H PRN (Reason: WHEEZING ) Referrals / Follow Up: Elvin Becerra MD [Primary Care Provider] - Disposition Disposition (needs filled in before D/C Order can be placed): DC/Tx to Another Type of HCF
== END 2023-08-23 23:20 | disposition other institution (70) | DRG 640 ==
LOC: ED 13:45 → PCU 16:19 → ICU 08-11 17:14
PROVIDERS: Internal Medicine; Internal Medicine Critical Care Medicine; Internal Medicine Nephrology; Nurse Practitioner Adult Health; Student in an Organized Health Care Education/Training Program; Admitting Provider Internal Medicine; Emergency Provider Emergency Medicine; PCP Family Medicine; Visit Provider Internal Medicine
DX: E87.70 Fluid overload, unspecified (principal); N18.6 End stage renal disease; J96.21 Acute and chronic respiratory failure with hypoxia; I50.33 Acute on chronic diastolic (congestive) heart failure; I31.39 Other pericardial effusion (noninflammatory); E27.49 Other adrenocortical insufficiency; I13.2 Hypertensive heart and chronic kidney disease with heart failure and with stage 5 chronic kidney disease, or end stage renal disease; J44.1 Chronic obstructive pulmonary disease with (acute) exacerbation; J90 Pleural effusion, not elsewhere classified; E27.8 Other specified disorders of adrenal gland; I95.3 Hypotension of hemodialysis; D63.1 Anemia in chronic kidney disease; E11.22 Type 2 diabetes mellitus with diabetic chronic kidney disease; Z99.2 Dependence on renal dialysis; F32.A Depression, unspecified; F17.210 Nicotine dependence, cigarettes, uncomplicated; I25.10 Atherosclerotic heart disease of native coronary artery without angina pectoris; K21.9 Gastro-esophageal reflux disease without esophagitis; E78.5 Hyperlipidemia, unspecified; F41.9 Anxiety disorder, unspecified; E87.5 Hyperkalemia; Z79.82 Long term (current) use of aspirin; Z79.02 Long term (current) use of antithrombotics/antiplatelets; F43.10 Post-traumatic stress disorder, unspecified; Z95.5 Presence of coronary angioplasty implant and graft
CPT/HCPCS: 32555; 36415; 36600; 71045; 71046; 71275; 80048; 80053; 80069; 82042; 82150; 82803; 82945; 82962; 83605; 83615; 83880; 83986; 84156; 84157; 84439; 84443; 85014; 85018; 85025; 85027; 86038; 86225; 86235; 86256; 87070; 87075; 87205; 87428; 87449; 87633; 87807; 88108; 88305; 88313; 88341; 88342; 89050; 90937; 93005; 93306; 93308; 94002; 94003; 94640; 94660; 94668; 94762; 97162; 97166; 97530; 97535; 99252; 99283; 99406; J7030; Q9957; Q9967; A4216; G0257; G0463; J1940; J2405; Q5106

== ENCOUNTER 2023-09-18 11:42 | Inpatient (IN) | payer MEDICARE, MEDICAID, SELFPAY ==
[2023-09-18] VITALS (22 sets, daily range): BP systolic 111–147; BP diastolic 62–102; PULSE 88–140; RESP 16–24; TEMP 36.4–37; O2SAT 93–99; BMI 27.3; BMI 26.5
--- NOTE | 2023-09-18 12:00 | VDLE_ITS ---
Reason For Study: LLE Pain RIGHT LEFT CFV is compressible, spontaneous, competent CFV is compressible, spontaneous, competent, and demonstrates pulsatile venous flow. and demonstrates pulsatile venous flow. Procedure FV is compressible, spontaneous, competent This is a venous duplex using B-mode, color and demonstrates pulsatile venous flow. flow and spectral Doppler. POP V is compressible, spontaneous, competent Exam performed portable in ED. and demonstrates pulsatile venous flow. The exam was diagnostic. T/P Trunk is compressible. A preliminary report was called and/or faxed PTV is compressible. to ED JOHAN Vasquez. LT PerV is compressible. VL/Venous Duplex US, Unilateral Interpretation Summary Deep veins of the left lower extremity are patent and compressible segmentally. There is no evidence of left lower extremity deep vein thrombosis. The left great saphenous vein shraddha ears patent and compressible segmentally. Ordering Physician: MD Azucena Mccann Referring Physician: Azucena Mccann Performed By: Matthias Taylor RVT
--- NOTE | 2023-09-18 12:02 | EDS_ITS ---
HPI History of Present Illness Chief Complaint: Abn Labs Detail of Chief Complaint: Low hemoglobin Informant: patient Narrative Narrative: Patient presents to the emergency department via EMS from dialysis for concern for low hemoglobin. Patient apparently dropped her hemoglobin to 6.5 from around 7.3. Patient states she was recently discharged about a week ago from [facility] where she was treated for fluid on her lungs and heart. Patient was receiving heparin shots at that time. Currently on Plavix. Last evening she felt like her heart was racing. She had a hard time sleeping last night. Somewhat lightheaded today. Apparently was orthostatic at the dialysis center. She was able to finish dialysis today. She denies any blood in her stool or black tarry stools. [facility] Medical History (Updated 09/18/23 @ 13:[address] Azucena Mccann DO) AAA (abdominal aortic aneurysm) Acute hypoxemic respiratory failure Anxiety Asthma Bilateral pleural effusion Congestive heart failure (CHF) Coronary artery disease Depression Diabetes Dialysis patient History of high cholesterol Kidney disease Migraines Myocardial infarct On home oxygen therapy PTSD (post-traumatic stress disorder) Sleep apnea Substance abuse Home Medications cholecalciferol (vitamin D3) 25 mcg (1,000 unit) capsule 50 mcg PO DAILY SUPPLEMENT 10/02/21 [History Last Taken 08/07/23] aspirin 81 mg tablet,delayed release 81 mg PO DAILY HEART 11/14/22 [History Last Taken 08/07/23] atorvastatin 80 mg tablet 80 mg PO QHS CHOLESTEROL 11/14/22 [History Last Taken 08/06/23] carvedilol 25 mg tablet 25 mg PO BID HEART 11/14/22 [History Last Taken 08/07/23] clopidogrel 75 mg tablet 75 mg PO DAILY BLOOD THINNER 11/14/22 [History Last Taken 08/07/23] mirtazapine 7.5 mg tablet 7.5 mg PO QHS INSOMNIA 11/14/22 [History Last Taken 08/06/23] nitroglycerin 0.4 mg sublingual tablet 0.4 mg sublingual DAILY PRN CHEST PAIN 11/14/22 [History Last Taken Unknown] pantoprazole 40 mg tablet,delayed release 40 mg PO DAILY ACID REFLUX 11/14/22 [History Last Taken 08/07/23] sevelamer carbonate 800 mg tablet 800 mg PO TIDCM PHOSPHATE 11/14/22 [History Last Taken 08/06/23] vitamin B complex-vitamin C-folic acid 0.8 mg tablet (Mojgan-Kirk) 1 tab PO DAILY SUPPLEMENT 11/14/22 [History Last Taken 08/07/23] acetaminophen 325 mg capsule 650 mg PO BID PRN PAIN 08/07/23 [History Last Taken 08/06/23] albuterol sulfate 90 mcg/actuation aerosol inhaler (Ventolin HFA) 1 puff inhalation Q4H PRN WHEEZING 08/07/23 [History Last Taken Unknown] nifedipine 90 mg tablet,extended release 24 hr 90 mg PO BID BLOOD PRESSURE 08/07/23 [History Last Taken 08/07/23] sertraline 25 mg tablet 25 mg PO DAILY DEPRESSION 08/07/23 [History Last Taken 08/07/23] torsemide 100 mg tablet 100 mg PO QODAY 09/18/23 [History Last Taken Unknown] Allergy/AdvReac Type Severity Reaction Status Date / Time Latex, Natural Rubber Allergy Rash Verified 09/18/23 11:43 Penicillins Allergy Rash Verified 09/18/23 11:43 Family History Other CAD (coronary artery disease) Heart disease Surgical History H/O tubal ligation History of arteriovenostomy for renal dialysis History of section, classical History of colectomy History of coronary artery stent placement History of ligation of vein History of total hysterectomy Hx of umbilical hernia repair Social History (Updated 08/07/23 @ 11:[address] Torsten Velasquez MD) household members: none Smoking Status: Former smoker substance use type: does not use ROS ROS ED Review of Systems ROS Unobtainable: other Constitutional Constitutional ED: Reports lethargy; Denies chills, fever(s), sweats or weight loss Eyes Eyes: Denies blurry vision, change in vision or diplopia ENT ENT ED: Denies rhinorrhea or sore throat Cardiovascular Cardiovascular: Reports palpitations and racing heartbeat; Denies chest pain or orthopnea Respiratory/Chest Respiratory/Chest: Denies cough, dyspnea, dyspnea on exertion, orthopnea or sputum Gastrointestinal Gastrointestinal: Denies abdominal pain, diarrhea, nausea or vomiting Genitourinary Genitourinary ED: Denies dysuria, hematuria or urinary frequency Musculoskeletal Musculoskeletal: Reports other Details: Left leg redness and swelling ; Denies arthralgias, back pain, myalgias or neck pain Integumentary Denies abscess, Abrasions or rash Neurologic Neurologic: Denies headache(s) or weakness Psychiatric Psychiatric: Denies anxiety, depression or suicidal thoughts Endocrine Endocrinology: Denies polydipsia, polyphagia or polyuria Hematologic/Lymphatic Hematologic/Lymphatic: Denies easy bleeding, easy bruising or lymphadenopathy Allergic/Immunologic Allergic/Immunologic ED: Denies mouth swelling, tongue swelling or urticaria EXAM Physical Exam Const Vital Signs: 09/18/23 11:44 09/18/23 11:49 09/18/23 12:43 Temperature 98.6 F Temperature Source Oral Pulse Rate 127 H 88 Respiratory Rate 22 H 22 H Respiratory Effort Normal Non-Labored Respiratory Pattern Normal Blood Pressure 120/102 H 116/62 Blood Pressure Mean 108 80 Pulse Ox 99 99 Oxygen Delivery Method Nasal Cannula Nasal Cannula Oxygen Flow Rate (L/min) 3 3 Positive well nourished and well developed General Appearance ED: well developed and NAD HEENT Reports TM's clear and moist mucous membranes normocephalic and atraumatic; Negative for trauma or tenderness Tympanic Membrane ED: Yes TM's clear Eyes PERRL and EOMs intact bilaterally General Eye ED: Negative for pale conjunctiva or scleral icterus Neck no lymphadenopathy, supple and no JVD General: Negative for tenderness Chest Wall inspection of chest normal and palpation of chest normal Chest: Negative for tenderness Resp normal respiratory effort and clear to auscultation bilaterally Effort and Inspection: Negative for respiratory distress or pain with movement Auscultation: Negative for rhonchi, wheezes or diminished lung sounds Cardio S1 normal heart sound, S2 normal heart sound and no murmurs; Negative for regular rate or regular rhythm Rate: tachycardic Rhythm: abnormal rhythm Peripheral Pulses: pulses 2+ throughout GI normal to inspection, nondistended, normoactive bowel sounds, soft to palpation, non-tender, non-distended and no masses GI Narrative: Rectal exam performed and patient had brown stool. No rectal masses palpated. Back/Spine no CVA tenderness and no thoracic nor lumbar tenderness Extremity Extremity Narrative: Left leg-patient has diffuse erythema about the left ankle onto the left medial lower extremity. Patient has tenderness over the left ankle on exam. Neurovascularly intact. General Extremety ED: Negative for edema General Extremity: Negative for edema Neuro oriented x3, CN's II-XII intact bilaterally, no sensory deficits noted and gait normal Sensorium / Orientation: awake, alert, oriented to person, oriented to place and oriented to time Motor Exam: strength 5/5 throughout and strength abnormal Psych mental status grossly normal Skin no rashes or lesions noted and no wounds MDM MDM MDM Narrative Medical decision making narrative: Patient presents with tachycardia and anemia. Presents from dialysis. EKG obtained showed atrial fibrillation with a rate of [address] changes. CBC with differential count of 15.5 with hemoglobin 7.0 and platelet count of 309. Patient troponin elevated 124. While in department she received Cardizem 20 mg IV bolus and her heart rate improved into the 90s. She did have a rectal exam that had brown stool that was Hemoccult positive. We held off on anticoagulation. I typed and crossed her for 1 unit packed red cells. Discussed case with hospitalist will evaluate patient for admission. Patient has A-fib RVR new onset with symptomatic anemia. Patient also has what appears to be a cellulitic left lower extremity. Venous Doppler of the extremity was negative for DVT. I suspect her troponin slightly elevated due to strain and renal dialysis. Lab Data Attestation: I reviewed the patient's lab results. Labs: Laboratory Results - last 24 hr 09/18/23 12:04 WBC 15.5 H RBC 2.20 L Hgb 7.0 L Hct 22.2 L MCV 100.9 H MCH 31.8 MCHC 31.5 L RDW Std Deviation 56.8 H RDW Coeff of Lola 15.5 H Plt Count 309 MPV 9.2 Immature Gran % (Auto) 2.700 H Neut % (Auto) 76.5 H Lymph % (Auto) 11.4 L [place] % (Auto) 8.3 Eos % (Auto) 0.5 Baso % (Auto) 0.6 Absolute Neuts (auto) 11.8 H Absolute Lymphs (auto) 1.77 Nucleated RBC % 0 Sodium 136 Potassium 3.1 L Chloride 96 L Carbon Dioxide 33.0 H Anion Gap 7 BUN 26 H Creatinine 2.05 H Estim Creat Clear Calc 26.67 Est GFR (MDRD) Af Amer 31 L Est GFR (MDRD) Non-Af 26 L BUN/Creatinine Ratio 12.7 Glucose 95 Calcium 8.7 Troponin I High Sens 124 H* Blood Type A NEGATIVE Antibody Screen NEGATIVE Crossmatch See Detail Radiography Diagnostic Testing: Clinical Impression(s) from Imaging Studies Chest X-Ray 09/18/23 12:57 IMPRESSION: Stable pleural parenchymal changes at the left lung base with improved aeration of the right lung base. Blunting of the right cusp right ankle with mild right basilar atelectasis. Electronically Signed: Richard Ndiaye MD at 13:28 EST , 1 view chest x-ray obtained interpreted by myself as small bilateral pleural effusions otherwise no acute process. EKG Initial EKG: Attestation: I personally reviewed and interpreted this EKG as follows: Comments: Atrial fibrillation with rapid ventricular response with rate of [address] changes Critical Care Time Critical care time (excluding procedures): 30-74 minutes, Including time spent:, Discussing w/Patient &/or Family/Environmental Attorney, Discussing w/Consultants, Arranging Admission or Transfer, Performing Direct Patient Care at Bedside and - (35 minutes) Discharge Plan Dx/Rx/DC Orders Clinical Impression: Cellulitis of left leg, GI bleed, Anemia, Atrial fibrillation with RVR, Acute hypokalemia, Elevated troponin Disposition Disposition: Acute Care [facility] Discharge Date/Time: 09/18/23 14:34
[2023-09-18 12:21] LABS: Absolute Lymphocyte Count 1.77 X10^3/uL (0.83-4.51); Absolute Neutrophil Count 11.8 X10^3/uL (2.0-7.7); Basophil# 0.09 X10^3/uL; Basophil% 0.6 % (0-1); Eosinophil# 0.08 X10^3/uL; Eosinophils% 0.5 % (0-5); Hematocrit 22.2 % (37-47); Lymphocyte # 1.77 X10^3/ul (0.83-4.51); Lymphocyte % 11.4 % (19-41); Mean Corp Hgb Conc 31.5 g/dL (32-36); Mean Corpuscular Hgb 31.8 pg (27.0-32.0); Mean Corpuscular Volume 100.9 fL (81-99); Mean Platelet Vol. 9.2 fl (6.2-12.0); Monocyte# 1.28 X10^3/uL; Monocyte% 8.3 % (0-10); NRBC Flagged by Analyzer 0 % (0-5); Neutrophil # 11.84 X10^3/uL (2.7-7.7); Neutrophil % 76.5 % (47-70); Platelet Count 309 K/mm3 (150-450); RBC Distribution Width CV 15.5 % (11.6-14.6); RBC Distribution Width SD 56.8 fl (35.1-43.9); White Blood Count 15.5 K/mm3 (4.4-11.0)
[2023-09-18] MEDS: dilTIAZem 25 MG/5 ML Vial 20 MG IV BOLUS (12:40)
[2023-09-18 12:43] LABS: Anion Gap 7 (5-15); BUN 26 mg/dL (7-18); BUN/Creat Ratio 12.7 RATIO (10-20); Calcium,Total 8.7 mg/dL (8.5-10.1); Chloride 96 mmol/L (98-107); Creatinine, Serum 2.05 mg/dL (0.55-1.02); EST Glomerular Filtration Rate 26 mL/min (>60); Est Glom Filt Rate - Afr Amer 31 mL/min (>60); Estimated Creatinine Clearance 26.67 ml/min; Glucose 95 mg/dL (74-106); Potassium 3.1 mmol/L (3.5-5.1); Sodium Level 136 mmol/L (136-145); Troponin-I HS 124 pg/mL (3.0-54.0)
--- NOTE | 2023-09-18 12:57 | RAD_ITS ---
STUDY: X-RAY CHEST REASON FOR EXAM: Female, 63 years old. Tachycardia TECHNIQUE: Single AP portable view of the chest. COMPARISON: Comparison is made with prior study dated August 21, 2023. FINDINGS: EKG electrodes are seen. Stable small left pleural effusion with left basilar infiltration and/or atelectasis. Improved aeration at the right base with blunting of the right costo phrenic angle and right basilar atelectasis. There is mild cardiac enlargement. Normal mediastinum and mackenzie. Normal visualized pulmonary arteries. There is atherosclerotic calcification of the aortic arch with tortuosity. There are diffuse degenerative changes of the visualized thoracic spine. Normal visualized ribs, clavicles, and shoulders. There is no demonstrated abnormality of the visualized soft tissue structures of the upper abdomen. RAD/Chest 1 View (Portable) IMPRESSION: Stable pleural parenchymal changes at the left lung base with improved aeration of the right lung base. Blunting of the right cusp right ankle with mild right basilar atelectasis. Electronically Signed: Richard Ndiaye MD at 13:28 EST ,
--- NOTE | 2023-09-18 13:02 | PCM.HP.STD ---
HPI - General General Date of Admission: 09/18/23 Date of Service: 09/18/23 Chief Complaint: Generalized weakness HPI Narrative BARI LAUGHLIN, is a 63 F with multiple comorbidities including end-stage renal disease on hemodialysis, essential hypertension, coronary artery disease with previous stent placement who presented to the emergency department following her dialysis session this morning with progressive generalized weakness. Patient stated that her symptoms have been ongoing for the past couple of days. She had not noticed any dark stools. Patient was however found to be anemic with hemoglobin of 7.0 her stool guaiac came back positive. In addition patient did complain of significant pain warmth and redness involving the left lower extremity. She was also found to be tachycardic and EKG demonstrated A-fib with RVR. Subsequently admitted to a monitored bed for further management [facility] Medical History (Updated 09/18/23 @ 13:[address] Azucena Mccann, ) AAA (abdominal aortic aneurysm) Acute hypoxemic respiratory failure Anxiety Asthma Bilateral pleural effusion Congestive heart failure (CHF) Coronary artery disease Depression Diabetes Dialysis patient History of high cholesterol Kidney disease Migraines Myocardial infarct On home oxygen therapy PTSD (post-traumatic stress disorder) Sleep apnea Substance abuse Home Medications cholecalciferol (vitamin D3) 25 mcg (1,000 unit) capsule 50 mcg PO DAILY SUPPLEMENT 10/02/21 [History Last Taken 08/07/23] aspirin 81 mg tablet,delayed release 81 mg PO DAILY HEART 11/14/22 [History Last Taken 08/07/23] atorvastatin 80 mg tablet 80 mg PO QHS CHOLESTEROL 11/14/22 [History Last Taken 08/06/23] carvedilol 25 mg tablet 25 mg PO BID HEART 11/14/22 [History Last Taken 08/07/23] clopidogrel 75 mg tablet 75 mg PO DAILY BLOOD THINNER 11/14/22 [History Last Taken 08/07/23] mirtazapine 7.5 mg tablet 7.5 mg PO QHS INSOMNIA 11/14/22 [History Last Taken 08/06/23] nitroglycerin 0.4 mg sublingual tablet 0.4 mg sublingual DAILY PRN CHEST PAIN 11/14/22 [History Last Taken Unknown] pantoprazole 40 mg tablet,delayed release 40 mg PO DAILY ACID REFLUX 11/14/22 [History Last Taken 08/07/23] sevelamer carbonate 800 mg tablet 800 mg PO TIDCM PHOSPHATE 11/14/22 [History Last Taken 08/06/23] vitamin B complex-vitamin C-folic acid 0.8 mg tablet (Mojgan-Kirk) 1 tab PO DAILY SUPPLEMENT 11/14/22 [History Last Taken 08/07/23] acetaminophen 325 mg capsule 650 mg PO BID PRN PAIN 08/07/23 [History Last Taken 08/06/23] albuterol sulfate 90 mcg/actuation aerosol inhaler (Ventolin HFA) 1 puff inhalation Q4H PRN WHEEZING 08/07/23 [History Last Taken Unknown] nifedipine 90 mg tablet,extended release 24 hr 90 mg PO BID BLOOD PRESSURE 08/07/23 [History Last Taken 08/07/23] sertraline 25 mg tablet 25 mg PO DAILY DEPRESSION 08/07/23 [History Last Taken 08/07/23] torsemide 100 mg tablet 100 mg PO QODAY 09/18/23 [History Last Taken Unknown] Allergy/AdvReac Type Severity Reaction Status Date / Time Latex, Natural Rubber Allergy Rash Verified 09/18/23 11:43 Penicillins Allergy Rash Verified 09/18/23 11:43 Family History Other CAD (coronary artery disease) Heart disease Surgical History H/O tubal ligation History of arteriovenostomy for renal dialysis History of section, classical History of colectomy History of coronary artery stent placement History of ligation of vein History of total hysterectomy Hx of umbilical hernia repair Social History (Updated 08/07/23 @ 11:[address] Torsten Velasquez MD) household members: none Smoking Status: Current every day smoker tobacco type: cigarettes substance use type: does not use ROS ROS Narrative GENERAL: Generalized weakness HEENT: denies headache, sinus congestion, or drainage, dysphagia RESPIRATORY: denies cough, sputum production, shortness of breath, dyspnea on exertion CARDIAC: palpitations, GASTROINTESTINAL: denies abdominal pain, nausea, vomiting, melena, GENITOURINARY: denies dysuria, urgency, frequency, heamaturia EXTREMITY: denies swelling MUSCULOSKELETAL: denies current joint pain or tenderness NEUROLOGIC: denies focal numbness, weakness, tingling HEMATOLOGIC: denies easy bruising and/or hemorrhage INTEGUMENT: An area of redness and warmth involving the left lower extremity PSYCHIATRIC: denies suicidal or homicidal ideation Vital Signs Vital Signs Vital Signs: 09/18/23 11:44 09/18/23 11:49 09/18/23 12:43 Temperature 98.6 F Temperature Source Oral Pulse Rate 127 H 88 Respiratory Rate 22 H 22 H Respiratory Effort Normal Non-Labored Respiratory Pattern Normal Blood Pressure 120/102 H 116/62 Blood Pressure Mean 108 80 Pulse Ox 99 99 Oxygen Delivery Method Nasal Cannula Nasal Cannula Oxygen Flow Rate (L/min) 3 3 Weight Weight: 72.3 kg Body Mass Index (BMI) 27.3 Results Lab / Micro Data 09/18/23 12:04 09/18/23 12:04 Labs: Laboratory Results - last 24 hr 09/18/23 12:04: WBC 15.5 H, RBC 2.20 L, Hgb 7.0 L, Hct 22.2 L, MCV 100.9 H, MCH 31.8, MCHC 31.5 L, RDW Std Deviation 56.8 H, RDW Coeff of Lola 15.5 H, Plt Count 309, MPV 9.2, Immature Gran % (Auto) 2.700 H, Neut % (Auto) 76.5 H, Lymph % (Auto) 11.4 L, [place] % (Auto) 8.3, Eos % (Auto) 0.5, Baso % (Auto) 0.6, Absolute Neuts (auto) 11.8 H, Absolute Lymphs (auto) 1.77, Nucleated RBC % 0, Sodium 136, Potassium 3.1 L, Chloride 96 L, Carbon Dioxide 33.0 H, Anion Gap 7, BUN 26 H, Creatinine 2.05 H, Estim Creat Clear Calc 26.67, Est GFR (MDRD) Af Amer 31 L, Est GFR (MDRD) Non-Af 26 L, BUN/Creatinine Ratio 12.7, Glucose 95, Calcium 8.7, Troponin I High Sens 124 H* Micro: Microbiology 09/18/23 12:04 Stool Stool Occult Blood (CAROL) - Final Occult Blood Positive Assessment & Plan Assessment/Plan (1) Atrial fibrillation with RVR: (2) Anemia: (3) Cellulitis of left leg: PLAN: Plan Patient is a 63-year-old lady with multiple comorbidities who was admitted following dialysis with progressive generalized weakness. Patient was found to be in A-fib with RVR, with left lower extremity cellulitis as well as symptomatic anemia admitted to monitored bed for further management 1. Acute symptomatic anemia ? Patient hemoglobin in the emergency department was 7.0. Stool for guaiac came back positive. Patient is on dual antiplatelet therapy with aspirin and Plavix both medications held. Patient was typed and crossmatched and order was given for patient to be transfused with 1 unit PRBC. Patient was started on Protonix drip consult placed to Dr. López with GI for possible endoscopic evaluation 2. Acute GI bleed ? Possibly upper GI bleed management as discussed above 3. New onset A-fib with RVR ? Possibly depressed stated by her Symptomatic anemia. Admitted to monitored bed for continuous telemetry monitoring as part of her management ordered 2D echo and serial cardiac enzymes. Patient currently not a candidate for systemic anticoagulation given her active GI bleed 4. Left lower extremity cellulitis ? Patient is apparently allergic to penicillin she was however started on ceftriaxone and vancomycin 5. Elevated troponin ? Secondary to suspected myocardial injury from patient's anemia as well as A-fib with RVR. Given patient underlying history of coronary artery disease serial cardiac enzymes ordered for monitoring patient placed on continuous telemetry 6. Coronary artery disease ? With previous PCI patient is on guideline directed medical therapy. Her antiplatelet therapy however held given her active GI bleed 7. Hypertension - Blood pressure controlled, home medications continued with dose adjustment as needed 8. End-stage renal disease ? On dialysis nephrology consulted for dialysis orders 9. GERD ? On PPI 10. Depression ? Patient is on SSRI continued 11. Dyslipidemia -Patient is on statin therapy, continued at home dose 12. DVT prophylaxis ? SCDs only given her GI bleed Advance planning; did discuss with the patient and family regarding advanced directives as well as CODE STATUS. Did explain the various scenarios involved ( FULL CODE, DNR CCA, DNR CCA with no intubation, and DNR CC and what each meant) patient elected to remain full code with CPR and intubation if needed. Order was placed. Time spent on discussion 18 minutes. Time spent in the patient's overall evaluation,decision-making process, review of diagnostic data, adjustment of management, discussion with other providers, nursing nursing and ancillary staff involved in patient's care documentation, 75 Minutes Charges/Coding Visit Charges Inpatient E&M: 97928 Init Hosp L3 Procedures Hospitalists Procedures: 05030 Advncd Care Plan addl 30 Min
[2023-09-18] MEDS: Morphine 4 MG/ML Syringe IV (13:07)
[2023-09-18] MEDS: Ondansetron 4 MG/2 ML Vial IV (13:07)
[2023-09-18] MEDS: Potassium Chloride Oral Tablet 20 MEQ 40 MEQ PO (13:08)
[2023-09-18] MEDS: Doxycycline 100 MG in Dextrose 5%-Water (250mL Bag) 250 ML 250 MG IV (13:34)
[2023-09-18 13:37] LABS: Color, Urine Yellow (Yellow); Glucose, Dipstick 100 mg/dl (Normal); Ketone-Dipstick 15 mg/dl (Negative); Leukocyte Esterase-Dipstick Negative /ul (Negative); Nitrite-Dipstick Negative (Negative); Occult Blood-Urine 10 /ul (Negative); Protein-Dipstick 500 mg/dl (Negative); Urine Bilirubin Dipstick Negative (Negative); Urine Clarity Clear (Clear); Urine Urobilinogen Normal (Normal)
[2023-09-18 13:43] LABS: Bacteria RARE /hpf (None Seen); Mucous, Urine 1+ /hpf (<or=2+); Red Blood Cells-Urine 0-5 SEEN /hpf (0-5); Squamous Epithelial Cells - UA 0-5 SEEN /hpf (5-10); White Blood Cells 0-5 SEEN /hpf (0-5)
--- NOTE | 2023-09-18 15:15 | ECHOD_ITS ---
Version 2 Reason For Study: Afib/Flutter Procedure This was a 2D Doppler, Color Flow transthoracic echocardiogram. Exam performed portable in patient room. Left Ventricle Normal LV size. Moderate concentric left ventricular hypertrophy. Left ventricular systolic function is normal. The estimated ejection fraction is 55 %. No regional wall motion abnormalities noted. Right Ventricle Normal RV size. Normal systolic function. Atria The left atrium is moderately enlarged. Normal right atrium. Mitral Valve Normal mitral valve. Tricuspid Valve Normal tricuspid valve. Aortic Valve Trisinus/trileaflet aortic valve. Pulmonic Valve Normal pulmonic valve. Great Vessels Normal aortic root. The pulmonary artery is normal size. Normal inferior vena cava. Pericardium/Pleural No pericardial effusion. MMode/2D Measurements & Calculations LVIDd: 3.8 cm IVSd: 1.7 cm LA dimension: 4.4 cm LVIDs: 2.7 cm LVPWd: 1.6 cm FS: 30.1 % LAV(MOD-bp): 91.7 ml LA A4 area: 26.0 cm2 RA A4 area: 20.7 cm2 LAV(MOD-bp) Indexed: 51.8 ml/m2 LAV(MOD-sp2): 88.9 ml LAV(MOD-sp4): 75.6 ml TAPSE: 2.1 cm Doppler Measurements & Calculations MV E max cielo: 129.3 cm/sec MV V2 max: 142.6 cm/sec Ao V2 max: 117.5 cm/sec MV max P.2 mmHg Ao max P.5 mmHg MV V2 mean: 75.6 cm/sec MV mean P.0 mmHg MV V2 VTI: 17.9 cm LV V1 max: 111.9 cm/sec PA V2 max: 98.5 cm/sec LV V1 max P.1 mmHg ECHO/Echo Complete Interpretation Summary Normal LV size. Left ventricular systolic function is normal. The estimated ejection fraction is 55 %. The left atrium is moderately enlarged. Moderate concentric left ventricular hypertrophy. Ordering Physician: Thomas Muir Referring Physician: Azucena Mccann Performed By: Ben Garduno RCS
[2023-09-18] MEDS: Carvedilol 25 MG Tablet PO ×2 (15:42→20:24)
[2023-09-18] MEDS: Pantoprazole Sodium 40 MG in 0.9% Normal Saline (100mL MB+) 100 ML 330 MG IV ×2 (17:04→20:23)
[2023-09-18] MEDS: 0.9% Saline Lock 10 ML Syringe IV (17:04)
[2023-09-18] MEDS: SEVELAMER CARBONATE 800 MG TABLET PO (17:05)
[2023-09-18 18:48] LABS: Bedside Glucose 128 mg/dL (74-106)
[2023-09-18] MEDS: Diltiazem 125 MG in Dextrose 5%-Water (100mL Bag) 100 ML CONT INF (18:48)
[2023-09-18 18:49] LABS: Hematocrit 25.3 % (37-47); Hemoglobin 8.1 g/dL (12.0-15.0)
[2023-09-18] MEDS: Mirtazapine 15 MG Tablet 7.5 MG PO (20:24)
[2023-09-18] MEDS: Atorvastatin Calcium 80 MG Tablet PO (20:24)
[2023-09-18] MEDS: Insulin Lispro 100 UNIT/ML INSULN.PEN SC (20:28)
[2023-09-18 21:14] LABS: Hematocrit 23.1 % (37-47); Hemoglobin 7.3 g/dL (12.0-15.0)
[2023-09-18] MEDS: Acetaminophen 325 MG Tablet 650 MG PO (22:57)
[2023-09-18] MEDS: MELATONIN 3 MG TABLET PO (22:59)
[2023-09-19] VITALS (15 sets, daily range): BP systolic 115–171; BP diastolic 49–77; PULSE 57–120; RESP 16–19; TEMP 36.1–36.9; O2SAT 79–96
[2023-09-19 00:58] LABS: Bedside Glucose 210 mg/dL (74-106)
--- NOTE | 2023-09-19 01:52 | PCM.HOSP.N ---
Hospitalist Note Patient converted to sinus with bradycardia with drip held. Patient on overlapping cardizem oral regimen.
[2023-09-19 03:25] LABS: Absolute Lymphocyte Count 2.29 X10^3/uL (0.83-4.51); Absolute Neutrophil Count 8.2 X10^3/uL (2.0-7.7); Basophil# 0.07 X10^3/uL; Basophil% 0.6 % (0-1); Eosinophil# 0.07 X10^3/uL; Eosinophils% 0.6 % (0-5); Hematocrit 23.1 % (37-47); Hemoglobin 7.1 g/dL (12.0-15.0); Lymphocyte # 2.29 X10^3/ul (0.83-4.51); Lymphocyte % 18.5 % (19-41); Mean Corp Hgb Conc 30.7 g/dL (32-36); Mean Corpuscular Hgb 31.3 pg (27.0-32.0); Mean Corpuscular Volume 101.8 fL (81-99); Mean Platelet Vol. 8.9 fl (6.2-12.0); Monocyte# 1.53 X10^3/uL; Monocyte% 12.3 % (0-10); NRBC Flagged by Analyzer 0 % (0-5); Neutrophil # 8.19 X10^3/uL (2.7-7.7); Neutrophil % 65.9 % (47-70); POSITIVE DIFFERENTIAL YES; POSITIVE MORPHOLOGY YES; Platelet Count 241 K/mm3 (150-450); RBC Distribution Width CV 17.7 % (11.6-14.6); RBC Distribution Width SD 65.6 fl (35.1-43.9); Red Blood Count 2.27 M/mm3 (4.2-5.4); White Blood Count 12.4 K/mm3 (4.4-11.0)
[2023-09-19 03:27] LABS: Differential Indicated SCAN CRITERIA MET
[2023-09-19 03:45] LABS: Anion Gap 7 (5-15); BUN 44 mg/dL (7-18); BUN/Creat Ratio 13.4 RATIO (10-20); Calcium,Total 9.3 mg/dL (8.5-10.1); Chloride 97 mmol/L (98-107); Creatinine, Serum 3.28 mg/dL (0.55-1.02); EST Glomerular Filtration Rate 15 mL/min (>60); Est Glom Filt Rate - Afr Amer 18 mL/min (>60); Estimated Creatinine Clearance 16.62 ml/min; Glucose 112 mg/dL (74-106); Magnesium 1.7 mg/dL (1.6-2.6); Phosphorus 6.2 mg/dL (2.5-4.9); Potassium 4.6 mmol/L (3.5-5.1); Sodium Level 136 mmol/L (136-145)
[2023-09-19 04:05] LABS: Atypical Lymphocyte 1+ %; Reactive Lymphocyte 2+
[2023-09-19 06:31] LABS: Bedside Glucose 123 mg/dL (74-106)
--- NOTE | 2023-09-19 08:17 | PCM.PN.HOSP ---
Reason for Visit Reason for Visit: Diagnoses Anemia, unspecified (09/18/23) Unspecified atrial fibrillation (09/18/23) Cellulitis of left lower limb (09/18/23) Subjective Subjective Patient is a 63-year-old lady admitted from dialysis with progressive generalized weakness. She was found to be in A-fib with RVR, symptomatic anemia as well as cellulitis involving left lower extremity. Admitted to monitored bed for subsequent management. Patient had been started on Cardizem drip following persistently high heart rates in the 140s. Seen this morning patient is back in sinus rhythm Objective Data Objective Data Vital Signs: Vital Signs Temp Pulse Resp BP Pulse Ox O2 Del Method O2 Flow Rate 97.6 F L 61 16 117/58 L 93 Nasal Cannula 3 09/19/23 04:00 09/19/23 04:00 09/19/23 04:00 09/19/23 04:00 09/19/23 04:00 09/19/23 04:00 09/19/23 04:00 Oxygen Flow Rate (L/min) 3 Oxygen Delivery Method Nasal Cannula Weight: 71.9 kg Body Mass Index (BMI) 26.5 Intake & Output: Intake and Output for Last 24 Hours 09/17/23 09/18/23 09/19/23 23:59 23:59 23:59 Intake Total 876.25 / 886.25 13.75 / 13.75 Output Total 0 / 0 Balance 876.25 / 886.25 13.75 / 13.75 Lab / Micro Data 09/19/23 03:15 09/19/23 03:15 Labs: Laboratory Results - last 24 hr 09/18/23 12:04: WBC 15.5 H, RBC 2.20 L, Hgb 7.0 L, Hct 22.2 L, MCV 100.9 H, MCH 31.8, MCHC 31.5 L, RDW Std Deviation 56.8 H, RDW Coeff of Lola 15.5 H, Plt Count 309, MPV 9.2, Immature Gran % (Auto) 2.700 H, Neut % (Auto) 76.5 H, Lymph % (Auto) 11.4 L, [place] % (Auto) 8.3, Eos % (Auto) 0.5, Baso % (Auto) 0.6, Absolute Neuts (auto) 11.8 H, Absolute Lymphs (auto) 1.77, Nucleated RBC % 0, Sodium 136, Potassium 3.1 L, Chloride 96 L, Carbon Dioxide 33.0 H, Anion Gap 7, BUN 26 H, Creatinine 2.05 H, Estim Creat Clear Calc 26.67, Est GFR (MDRD) Af Amer 31 L, Est GFR (MDRD) Non-Af 26 L, BUN/Creatinine Ratio 12.7, Glucose 95, Calcium 8.7, Troponin I High Sens 124 H*, Blood Type A NEGATIVE, Antibody Screen NEGATIVE, Crossmatch See Detail 09/18/23 13:25: Urine Color Yellow, Urine Clarity Clear, Urine pH 8.0, Ur Specific [place] 1.010, Urine Protein 500 H, Urine Glucose (UA) 100 H, Urine Ketones 15 H, Urine Occult Blood 10 H, Urine Nitrite Negative, Urine Bilirubin Negative, Urine Urobilinogen Normal, Ur Leukocyte Esterase Negative, Urine RBC 0-5 SEEN, Urine WBC 0-5 SEEN, Ur Squamous Epith Cells 0-5 SEEN, Urine Bacteria RARE, Urine Mucus 1+ 09/18/23 18:25: POC Glucose 128 H 09/18/23 18:43: Hgb 8.1 L, Hct 25.3 L 09/18/23 20:27: POC Glucose 210 H 09/18/23 21:05: Hgb 7.3 L, Hct 23.1 L 09/19/23 03:15: WBC 12.4 H, RBC 2.27 L, Hgb 7.1 L, Hct 23.1 L, MCV 101.8 H, MCH 31.3, MCHC 30.7 L, RDW Std Deviation 65.6 H, RDW Coeff of Lola 17.7 H, Plt Count 241, MPV 8.9, Immature Gran % (Auto) 2.100 H, Neut % (Auto) 65.9, Lymph % (Auto) 18.5 L, [place] % (Auto) 12.3 H, Eos % (Auto) 0.6, Baso % (Auto) 0.6, Absolute Neuts (auto) 8.2 H, Absolute Lymphs (auto) 2.29, Nucleated RBC % 0, Diff Path Review May foll, Atypical Lymphocytes 1+, Reactive Lymphocytes 2+, Sodium 136, Potassium 4.6, Chloride 97 L, Carbon Dioxide 32.0, Anion Gap 7, BUN 44 H, Creatinine 3.28 H, Estim Creat Clear Calc 16.62, Est GFR (MDRD) Af Amer 18 L, Est GFR (MDRD) Non-Af 15 L, BUN/Creatinine Ratio 13.4, Glucose 112 H, Calcium 9.3, Phosphorus 6.2 H, Magnesium 1.7 09/19/23 06:10: POC Glucose 123 H Micro: Microbiology 09/18/23 12:04 Stool Stool Occult Blood (CAROL) - Final Occult Blood Positive Radiography Diagnostic Testing: Radiology Impression Venous Doppler Study 09/18/23 12:00 Interpretation Summary Deep veins of the left lower extremity are patent and compressible segmentally. There is no evidence of left lower extremity deep vein thrombosis. The left great saphenous vein appears patent and compressible segmentally. Ordering Physician: MD Azucena Mccann Referring Physician: Azucena Mccann Performed By: Matthias Taylor, [facility] Chest X-Ray 09/18/23 12:57 IMPRESSION: Stable pleural parenchymal changes at the left lung base with improved aeration of the right lung base. Blunting of the right cusp right ankle with mild right basilar atelectasis. Electronically Signed: Richard Ndiaye MD at 13:28 EST , Echocardiogram 09/18/23 15:15 Interpretation Summary Normal LV size. Left ventricular systolic function is normal. The estimated ejection fraction is 55 %. The left atrium is moderately enlarged. Moderate concentric left ventricular hypertrophy. Ordering Physician: Thomas Muir Referring Physician: Azucena Mccann Performed By: Ben Garduno RCS Physical Exam Narrative GENERAL: cooperative HEENT: Atraumatic; normocephalic EYES; Anicteric, Normal Conjunctiva NECK; supple, normal thyroid, RESPIRATORY: Diminished to auscultation CARDIOVASCULAR: Irregularly irregular GI: soft, normoactive bowel sounds, : No Renal angle tenderness; EXTREMITIES: No edema, no clubbing, MUSCULOSKELETAL: no muscle wasting NEURO: Awake; no lateralizing signs. SKIN: No Rash PSYCH; Flat affect Assessment & Plan Assessment/Plan (1) Atrial fibrillation with RVR: (2) Anemia: (3) Cellulitis of left leg: PLAN: Plan Patient is a 63-year-old lady with multiple comorbidities who was admitted following dialysis with progressive generalized weakness. Patient was found to be in A-fib with RVR, with left lower extremity cellulitis as well as symptomatic anemia admitted to monitored bed for further management 1. Acute symptomatic anemia ? Patient hemoglobin in the emergency department was 7.0. Stool for guaiac came back positive. Patient is on dual antiplatelet therapy with aspirin and Plavix both medications held. Patient was typed and crossmatched and order was given for patient to be transfused with 1 unit PRBC. Patient was started on Protonix drip consult placed to Dr. López with GI for possible endoscopic evaluation ? 09/19/2023 patient was transfused 1 unit PRBC hemoglobinSerially monitored did go up to 8.1 following her transfusion, down to 7.1 2. Acute GI bleed ? Possibly upper GI bleed management as discussed above 3. New onset A-fib with RVR ? Possibly depressed stated by her Symptomatic anemia. Admitted to monitored bed for continuous telemetry monitoring as part of her management ordered 2D echo and serial cardiac enzymes. Patient currently not a candidate for systemic anticoagulation given her active GI bleed ? 09/19/2023 patient converted on Cardizem drip which has since been weaned off started on p.o. Cardizem 4. Left lower extremity cellulitis ? Patient is apparently allergic to penicillin she was however started on ceftriaxone and vanc 5. Elevated troponin ? Secondary to suspected myocardial injury from patient's anemia as well as A-fib with RVR. Given patient underlying history of coronary artery disease serial cardiac enzymes ordered for monitoring patient placed on continuous telemetry 6. Coronary artery disease ? With previous PCI patient is on guideline directed medical therapy. Her antiplatelet therapy however held given her active GI bleed 7. Hypertension - Blood pressure controlled, home medications continued with dose adjustment as needed 8. End-stage renal disease ? On dialysis nephrology consulted for dialysis orders 9. GERD ? On PPI 10. Depression ? Patient is on SSRI continued 11. Dyslipidemia -Patient is on statin therapy, continued at home dose 12. DVT prophylaxis ? SCDs only given her GI bleed Time spent in the patient's overall evaluation,decision-making process, review of diagnostic data, adjustment of management, discussion with other providers, nursing nursing and ancillary staff involved in patient's care documentation, 50 Minutes Charges/Coding Visit Charges Inpatient E&M: 23630 [facility] Hosp L3
[2023-09-19 09:07] LABS: Hematocrit 25.5 % (37-47); Hemoglobin 7.8 g/dL (12.0-15.0)
[2023-09-19] MEDS: Carvedilol 25 MG Tablet PO ×2 (09:11→21:38)
[2023-09-19] MEDS: Folic Acid/Vitamin B Comp W-C 1 Capsule 1 CAP PO (09:11)
[2023-09-19] MEDS: Torsemide 100 MG Tablet PO (09:11)
[2023-09-19] MEDS: SEVELAMER CARBONATE 800 MG TABLET PO ×3 (09:12→17:05)
[2023-09-19] MEDS: dilTIAZem CD 120 MG Capsule PO ×2 (09:12→21:38)
[2023-09-19] MEDS: Acetaminophen 325 MG Tablet 650 MG PO ×2 (09:13→21:46)
[2023-09-19] MEDS: Sertraline 50 MG Tablet 25 MG PO (09:13)
[2023-09-19] MEDS: Cholecalciferol (VIT D3) 25 MCG TABLET (1,000 UNITS) 50 MCG PO (09:13)
[2023-09-19] MEDS: Ceftriaxone 1 GM/50 ML BAG IV (09:17)
[2023-09-19] MEDS: Pantoprazole Sodium 40 MG in 0.9% Normal Saline (100mL MB+) 100 ML 330 MG IV ×2 (09:17→21:37)
[2023-09-19] MEDS: traMADol 50 MG Tablet PO (11:36)
[2023-09-19 11:44] LABS: Bedside Glucose 124 mg/dL (74-106)
--- NOTE | 2023-09-19 13:01 | CON.PCM.RE_ITS ---
Assessment & Plan Assessment/Plan (1) ESRD (end stage renal disease): PLAN: Dialysis tomorrow. No acute indications today. Anemia. Hemoglobin was 6.5 yesterday. Received blood transfusion. Tachycardia, better with Cardizem drip. HPI Consult Data Date of Consult: 09/19/23 HPI Narrative Reason for Consultation: ESRD HPI Narrative: BARI LAUGHLIN, is a 63 F who presents To the hospital with severe anemia. History of ESRD, on hemodialysis Sunday, , Sunday. She did receive full dialysis yesterday. She was recently admitted at [facility] with recurrent pleural effusions. Was discharged home about 1.5 weeks ago. She had extensive bruising at dialysis unit yesterday along with low hemoglobin of 6.4 hence she was sent in. Heart rate was also noted to be high almost 150. Received Cardizem drip. [facility] Medical History (Updated 09/18/23 @ 13:[address] Azucena Mccann, ) AAA (abdominal aortic aneurysm) Acute hypoxemic respiratory failure Anxiety Asthma Bilateral pleural effusion Congestive heart failure (CHF) Coronary artery disease Depression Diabetes Dialysis patient History of high cholesterol Kidney disease Migraines Myocardial infarct On home oxygen therapy PTSD (post-traumatic stress disorder) Sleep apnea Substance abuse Home Medications cholecalciferol (vitamin D3) 25 mcg (1,000 unit) capsule 50 mcg PO DAILY SUPPLEMENT 10/02/21 [History Last Taken 08/07/23] aspirin 81 mg tablet,delayed release 81 mg PO DAILY HEART 11/14/22 [History Last Taken 08/07/23] atorvastatin 80 mg tablet 80 mg PO QHS CHOLESTEROL 11/14/22 [History Last Taken 08/06/23] carvedilol 25 mg tablet 25 mg PO BID HEART 11/14/22 [History Last Taken 08/07/23] clopidogrel 75 mg tablet 75 mg PO DAILY BLOOD THINNER 11/14/22 [History Last Ta haylee 08/07/23] mirtazapine 7.5 mg tablet 7.5 mg PO QHS INSOMNIA 11/14/22 [History Last Taken 08/06/23] nitroglycerin 0.4 mg sublingual tablet 0.4 mg sublingual DAILY PRN CHEST PAIN 11/14/22 [History Last Taken Unknown] pantoprazole 40 mg tablet,delayed release 40 mg PO DAILY ACID REFLUX 11/14/22 [History Last Taken 08/07/23] sevelamer carbonate 800 mg tablet 800 mg PO TIDCM PHOSPHATE 11/14/22 [History Last Taken 08/06/23] vitamin B complex-vitamin C-folic acid 0.8 mg tablet (Mojgan-Kirk) 1 tab PO DAILY SUPPLEMENT 11/14/22 [History Last Taken 08/07/23] acetaminophen 325 mg capsule 650 mg PO BID PRN PAIN 08/07/23 [History Last Taken 08/06/23] albuterol sulfate 90 mcg/actuation aerosol inhaler (Ventolin HFA) 1 puff inhalation Q4H PRN WHEEZING 08/07/23 [History Last Taken Unknown] nifedipine 90 mg tablet,extended release 24 hr 90 mg PO BID BLOOD PRESSURE 08/07/23 [History Last Taken 08/07/23] sertraline 25 mg tablet 25 mg PO DAILY DEPRESSION 08/07/23 [History Last Taken 08/07/23] torsemide 100 mg tablet 100 mg PO QODAY 09/18/23 [History Last Taken Unknown] Allergy/AdvReac Type Severity Reaction Status Date / Time Latex, Natural Rubber Allergy Rash Verified 09/18/23 11:43 Penicillins Allergy Rash Verified 09/18/23 11:43 Family History Other CAD (coronary artery disease) Heart disease Surgical History H/O tubal ligation History of arteriovenostomy for renal dialysis History of section, classical History of colectomy History of coronary artery stent placement History of ligation of vein History of total hysterectomy Hx of umbilical hernia repair Social History (Updated 08/07/23 @ 11:[address] Torsten Velasquez MD) household members: none Smoking Status: Former smoker substance use type: does not use ROS ROS Narrative Negative except above Physical Exam Narrative Alert awake oriented x 3 no obvious distress no pallor no icterus no JVD s1s2 no murmurs lungs clear abdomen soft no organomegaly no edema no cyanosis Lab / Micro Data 09/19/23 08:56 09/19/23 03:15 Labs: Laboratory Results - last 24 hr 09/18/23 12:04: Blood Type A NEGATIVE, Antibody Screen NEGATIVE, Crossmatch See Detail 09/18/23 13:25: Urine Color Yellow, Urine Clarity Clear, Urine pH 8.0, Ur Specific Loring 1.010, Urine Protein 500 H, Urine Glucose (UA) 100 H, Urine Ketones 15 H, Urine Occult Blood 10 H, Urine Nitrite Negative, Urine Bilirubin Negative, Urine Urobilinogen Normal, Ur Leukocyte Esterase Negative, Urine RBC 0-5 SEEN, Urine WBC 0-5 SEEN, Ur Squamous Epith Cells 0-5 SEEN, Urine Bacteria RARE, Urine Mucus 1+ 09/18/23 18:25: POC Glucose 128 H 09/18/23 18:43: Hgb 8.1 L, Hct 25.3 L 09/18/23 20:27: POC Glucose 210 H 09/18/23 21:05: Hgb 7.3 L, Hct 23.1 L 09/19/23 03:15: WBC 12.4 H, RBC 2.27 L, Hgb 7.1 L, Hct 23.1 L, MCV 101.8 H, MCH 31.3, MCHC 30.7 L, RDW Std Deviation 65.6 H, RDW Coeff of Lola 17.7 H, Plt Count 241, MPV 8.9, Immature Gran % (Auto) 2.100 H, Neut % (Auto) 65.9, Lymph % (Auto) 18.5 L, [place] % (Auto) 12.3 H, Eos % (Auto) 0.6, Baso % (Auto) 0.6, Absolute Neuts (auto) 8.2 H, Absolute Lymphs (auto) 2.29, Nucleated RBC % 0, Diff Path Review May foll, Atypical Lymphocytes 1+, Reactive Lymphocytes 2+, Sodium 136, Potassium 4.6, Chloride 97 L, Carbon Dioxide 32.0, Anion Gap 7, BUN 44 H, Creatinine 3.28 H, Estim Creat Clear Calc 16.62, Est GFR (MDRD) Af Amer 18 L, Est GFR (MDRD) Non-Af 15 L, BUN/Creatinine Ratio 13.4, Glucose 112 H, Calcium 9.3, Phosphorus 6.2 H, Magnesium 1.7 09/19/23 06:10: POC Glucose 123 H 09/19/23 08:56: Hgb 7.8 L, Hct 25.5 L 09/19/23 11:26: POC Glucose 124 H Micro: Microbiology 09/18/23 12:04 Stool Stool Occult Blood (CAROL) - Final Occult Blood Positive Imagaing Radiology Impression Venous Doppler Study 09/18/23 12:00 Interpretation Summary Deep veins of the left lower extremity are patent and compressible segmentally. There is no evidence of left lower extremity deep vein thrombosis. The left great saphenous vein appears patent and compressible segmentally. Ordering Physician: MD Azucena Mccann Referring Physician: Azucena Mccann Performed By: Matthias Taylor T Chest X-Ray 09/18/23 12:57 IMPRESSION: Stable pleural parenchymal changes at the left lung base with improved aeration of the right lung base. Blunting of the right cusp right ankle with mild right basilar atelectasis. Electronically Signed: Richard Ndiaye MD at 13:28 EST , Echocardiogram 09/18/23 15:15 Interpretation Summary Normal LV size. Left ventricular systolic function is normal. The estimated ejection fraction is 55 %. The left atrium is moderately enlarged. Moderate concentric left ventricular hypertrophy. Ordering Physician: Thomas Muir Referring Physician: Azucena Mccann Performed By: Ben Garduno RCS
--- NOTE | 2023-09-19 13:25 | CASEMGMT ---
Per nursing admission questions patient does not have advance directives and is not interested in documents. Naty Lei [employer]
[2023-09-19 14:35] LABS: Pathologist Review Reviewed
--- NOTE | 2023-09-19 16:00 | CASEMGMT ---
JOHAN HAYES chart review: Patient was admitted 08/07-08/23/23 for hypoxic respiratory failure. See JOHAN HAYES assessment from 08/08/23. Patient was transferred to [facility]. Patient returned to [facility] ED from [facility] for low hgb of 6.5. [facility] and is still currently active. Patient has home oxygen with [employer] at 2lpm continuously. JOHAN HAYES in to discuss needs at discharge with patient. Patient states she was to follow up with PCP on 09/21/23. Patient voiced frustrations of being confined to her house due to oxygen and walker. Patient states she is having trouble getting groceries and food for pets. Patient states she is also unable to pay her bills. JOHAN HAYES discuss resumption of HHC at discharge, patient agreeable. JOHAN HAYES updated patient that SW will be notified of food and bill concerns and assistants for resources. JOHAN HAYES updated SW. CM will continue to follow this patient and plan for a safe dishcarge.
[2023-09-19] MEDS: Albuterol 2.5 MG/3 ML VIAL.NEB. INHALATION (17:23)
[2023-09-19 17:40] LABS: Bedside Glucose 117 mg/dL (74-106)
[2023-09-19] MEDS: Atorvastatin Calcium 80 MG Tablet PO (21:38)
[2023-09-19] MEDS: Mirtazapine 15 MG Tablet 7.5 MG PO (21:42)
[2023-09-19] MEDS: MELATONIN 3 MG TABLET PO (21:46)
[2023-09-20] VITALS (14 sets, daily range): BP systolic 115–220; BP diastolic 53–78; PULSE 48–63; RESP 14–24; TEMP 36.4–36.9; O2SAT 90–99; BMI 26.2; BMI 25.3; BMI 25.4
[2023-09-20] MEDS: Albuterol 2.5 MG/3 ML VIAL.NEB. INHALATION ×2 (03:50→21:49)
[2023-09-20 06:06] LABS: Absolute Lymphocyte Count 1.63 X10^3/uL (0.83-4.51); Absolute Neutrophil Count 11.7 X10^3/uL (2.0-7.7); Basophil# 0.06 X10^3/uL; Basophil% 0.4 % (0-1); Eosinophil# 0.15 X10^3/uL; Hematocrit 24.1 % (37-47); Hemoglobin 7.4 g/dL (12.0-15.0); Lymphocyte # 1.63 X10^3/ul (0.83-4.51); Lymphocyte % 10.8 % (19-41); Mean Corp Hgb Conc 30.7 g/dL (32-36); Mean Corpuscular Hgb 31.4 pg (27.0-32.0); Mean Corpuscular Volume 102.1 fL (81-99); Mean Platelet Vol. 9.1 fl (6.2-12.0); Monocyte# 1.36 X10^3/uL; NRBC Flagged by Analyzer 0 % (0-5); Neutrophil # 11.66 X10^3/uL (2.7-7.7); Neutrophil % 77.1 % (47-70); Platelet Count 252 K/mm3 (150-450); RBC Distribution Width CV 16.5 % (11.6-14.6); RBC Distribution Width SD 61.7 fl (35.1-43.9); Red Blood Count 2.36 M/mm3 (4.2-5.4); White Blood Count 15.1 K/mm3 (4.4-11.0)
[2023-09-20 06:26] LABS: Anion Gap 7 (5-15); BUN 62 mg/dL (7-18); Calcium,Total 9.5 mg/dL (8.5-10.1); Chloride 99 mmol/L (98-107); Creatinine, Serum 4.44 mg/dL (0.55-1.02); EST Glomerular Filtration Rate 11 mL/min (>60); Est Glom Filt Rate - Afr Amer 13 mL/min (>60); Estimated Creatinine Clearance 12.28 ml/min; Glucose 109 mg/dL (74-106); Potassium 4.6 mmol/L (3.5-5.1); Sodium Level 135 mmol/L (136-145)
--- NOTE | 2023-09-20 07:50 | PN.HOSP_ITS ---
Reason for Visit Reason for Visit: Diagnoses Anemia, unspecified (09/18/23) Unspecified atrial fibrillation (09/18/23) Cellulitis of left lower limb (09/18/23) End stage renal disease (09/18/23) Subjective Subjective Patient has receive total of 2 units PRBC blood transfusion. Hemoglobin 7.4 this a.m. Patient heart rate is also relatively well-controlled and is actually bradycardic patient has been started on Cardizem p.o. discontinued however did continue with Coreg Objective Data Objective Data Vital Signs: Vital Signs Temp Pulse Resp BP Pulse Ox O2 Del Method O2 Flow Rate 97.5 F L 48 L 24 H 124/57 H 90 Nasal Cannula 6 09/20/23 03:45 09/20/23 03:50 09/20/23 03:50 09/20/23 03:45 09/20/23 03:50 09/20/23 03:50 09/20/23 03:50 Oxygen Flow Rate (L/min) 6 Oxygen Delivery Method Nasal Cannula Weight: 71.9 kg Body Mass Index (BMI) 26.5 Intake & Output: Intake and Output for Last 24 Hours 09/18/23 09/19/23 09/20/23 23:59 23:59 23:59 Intake Total 876.25 / 886.25 283.75 / 283.75 Output Total 0 / 0 Balance 876.25 / 886.25 283.75 / 283.75 Lab / Micro Data 09/20/23 05:45 09/20/23 05:45 Labs: Laboratory Results - last 24 hr 09/19/23 03:15: Diff Path Review Reviewed 09/19/23 08:56: Hgb 7.8 L, Hct 25.5 L 09/19/23 11:26: POC Glucose 124 H 09/19/23 17:04: POC Glucose 117 H 09/20/23 05:45: WBC 15.1 H, RBC 2.36 L, Hgb 7.4 L, Hct 24.1 L, MCV 102.1 H, MCH 31.4, MCHC 30.7 L, RDW Std Deviation 61.7 H, RDW Coeff of Lola 16.5 H, Plt Count 252, MPV 9.1, Immature Gran % (Auto) 1.700 H, Neut % (Auto) 77.1 H, Lymph % (Auto) 10.8 L, Lipscomb % (Auto) 9.0, Eos % (Auto) 1.0, Baso % (Auto) 0.4, Absolute Neuts (auto) 11.7 H, Absolute Lymphs (auto) 1.63, Nucleated RBC % 0, Sodium 135 L, Potassium 4.6, Chloride 99, Carbon Dioxide 29.0, Anion Gap 7, BUN 62 H, Creatinine 4.44 H, Estim Creat Clear Calc 12.28, Est GFR (MDRD) Af Amer 13 L, Est GFR (MDRD) Non-Af 11 L, BUN/Creatinine Ratio 14.0, Glucose 109 H, Calcium 9.5 Micro: Microbiology 09/18/23 12:04 Stool Stool Occult Blood (CAROL) - Final Occult Blood Positive Physical Exam Narrative GENERAL: cooperative HEENT: Atraumatic; normocephalic EYES; Anicteric, Normal Conjunctiva NECK; supple, normal thyroid, RESPIRATORY: Diminished to auscultation CARDIOVASCULAR: Regular S1-S2 GI: soft, normoactive bowel sounds, : No Renal angle tenderness; EXTREMITIES: No edema, no clubbing, MUSCULOSKELETAL: no muscle wasting NEURO: Awake; no lateralizing signs. SKIN: No Rash PSYCH; Flat affect Assessment & Plan Assessment/Plan (1) Atrial fibrillation with RVR: (2) Anemia: (3) Cellulitis of left leg: PLAN: Plan Patient is a 63-year-old lady with multiple comorbidities who was admitted following dialysis with progressive generalized weakness. Patient was found to be in A-fib with RVR, with left lower extremity cellulitis as well as symptomatic anemia admitted to monitored bed for further management 1. Acute symptomatic anemia ? Patient hemoglobin in the emergency department was 7.0. Stool for guaiac came back positive. Patient is on dual antiplatelet therapy with aspirin and Plavix both medications held. Patient was typed and crossmatched and order was given for patient to be transfused with 1 unit PRBC. Patient was started on Protonix drip consult placed to Dr. López with GI for possible endoscopic evaluation ? 09/19/2023 patient was transfused 1 unit PRBC hemoglobinSerially monitored did go up to 8.1 following her transfusion, down to 7.1 ? 09/20/2023 patient has received total of 2 unit PRBC hemoglobin up to 7.4. Awaiting endoscopic evaluation by GI 2. Acute GI bleed ? Possibly upper GI bleed management as discussed above 3. New onset A-fib with RVR ? Possibly depressed stated by her Symptomatic anemia. Admitted to monitored bed for continuous telemetry monitoring as part of her management ordered 2D echo and serial cardiac enzymes. Patient currently not a candidate for systemic anticoagulation given her active GI bleed ? 09/19/2023 patient converted on Cardizem drip which has since been weaned off started on p.o. Cardizem ? 09/20/2023; patient remains in sinus rhythm given patient being bradycardic Cardizem was discontinued 4. Left lower extremity cellulitis ? Patient is apparently allergic to penicillin she was however started on ceftriaxone and vanc 5. Elevated troponin ? Secondary to suspected myocardial injury from patient's anemia as well as A- fib with RVR. Given patient underlying history of coronary artery disease serial cardiac enzymes ordered for monitoring patient placed on continuous telemetry 6. Coronary artery disease ? With previous PCI patient is on guideline directed medical therapy. Her antiplatelet therapy however held given her active GI bleed 7. Hypertension - Blood pressure controlled, home medications continued with dose adjustment as needed 8. End-stage renal disease ? On dialysis nephrology consulted for dialysis orders 9. GERD ? On PPI 10. Depression ? Patient is on SSRI continued 11. Dyslipidemia -Patient is on statin therapy, continued at home dose 12. DVT prophylaxis ? SCDs only given her GI bleed Time spent in the patient's overall evaluation,decision-making process, review of diagnostic data, adjustment of management, discussion with other providers, nursing nursing and ancillary staff involved in patient's care documentation, 50 Minutes Charges/Coding Visit Charges Inpatient E&M: 49229 [facility] L3
[2023-09-20] MEDS: 0.9% Normal Saline 1,000 ML IV.SOLN. 1000 ML OPERA.SITE (08:22)
[2023-09-20] MEDS: PureFlow B 2K Dialysis Soln 1 BAG 6 BAG PF (08:22)
[2023-09-20] MEDS: Sertraline 50 MG Tablet 25 MG PO (10:03)
[2023-09-20] MEDS: Cholecalciferol (VIT D3) 25 MCG TABLET (1,000 UNITS) 50 MCG PO (10:03)
[2023-09-20] MEDS: Folic Acid/Vitamin B Comp W-C 1 Capsule 1 CAP PO (10:03)
[2023-09-20] MEDS: Carvedilol 25 MG Tablet PO ×2 (11:02→20:55)
[2023-09-20] MEDS: Ceftriaxone 1 GM/50 ML BAG IV (11:55)
--- NOTE | 2023-09-20 12:27 | PCM.PN.REN ---
Subjective Subjective no new events Objective Data Objective Data Vital Signs: Vital Signs Temp Pulse Resp BP Pulse Ox O2 Del Method O2 Flow Rate 97.5 F L 59 L 15 171/63 H 97 Nasal Cannula 6 09/20/23 03:45 09/20/23 11:34 09/20/23 11:34 09/20/23 11:34 09/20/23 11:34 09/20/23 11:34 09/20/23 11:34 Oxygen Flow Rate (L/min) 6 Oxygen Delivery Method Nasal Cannula Weight: 69 kg Body Mass Index (BMI) 25.3 Intake & Output: Intake and Output for Last 24 Hours 09/18/23 09/19/23 09/20/23 23:59 23:59 23:59 Intake Total 876.25 / 886.25 283.75 / 283.75 Output Total 0 / 0 2450 / 2450 Balance 876.25 / 886.25 283.75 / 283.75 -2450 / -2450 Lab / Micro Data 09/20/23 05:45 09/20/23 05:45 Labs: Laboratory Results - last 24 hr 09/19/23 03:15: Diff Path Review Reviewed 09/19/23 17:04: POC Glucose 117 H 09/20/23 05:45: WBC 15.1 H, RBC 2.36 L, Hgb 7.4 L, Hct 24.1 L, MCV 102.1 H, MCH 31.4, MCHC 30.7 L, RDW Std Deviation 61.7 H, RDW Coeff of Lola 16.5 H, Plt Count 252, MPV 9.1, Immature Gran % (Auto) 1.700 H, Neut % (Auto) 77.1 H, Lymph % (Auto) 10.8 L, [place] % (Auto) 9.0, Eos % (Auto) 1.0, Baso % (Auto) 0.4, Absolute Neuts (auto) 11.7 H, Absolute Lymphs (auto) 1.63, Nucleated RBC % 0, Sodium 135 L, Potassium 4.6, Chloride 99, Carbon Dioxide 29.0, Anion Gap 7, BUN 62 H, Creatinine 4.44 H, Estim Creat Clear Calc 12.28, Est GFR (MDRD) Af Amer 13 L, Est GFR (MDRD) Non-Af 11 L, BUN/Creatinine Ratio 14.0, Glucose 109 H, Calcium 9.5 Micro: Microbiology 09/18/23 12:04 Stool Stool Occult Blood (CAROL) - Final Occult Blood Positive Physical Exam Narrative Alert awake oriented x 3 no obvious distress no pallor no icterus no JVD s1s2 no murmurs lungs clear abdomen soft no organomegaly no edema no cyanosis Assessment & Plan Assessment/Plan (1) ESRD (end stage renal disease): PLAN: HD today. see orders. Anemia. s/p PRBC Tachycardia, better with Cardizem drip. now off
[2023-09-20] MEDS: traMADol 50 MG Tablet PO (13:01)
--- NOTE | 2023-09-20 13:37 | CASEMGMT ---
RN FREDDY notified SW patient was expressing concern with paying bills, food, transportation etc. SW went to patient's room. Patient had her lunch tray. Introduced self and role at [facility]. Patient sighed putting her sandwich down in its container, and said, Every time I try and eat someone comes in. SW told patient SW will come back and left the room. Naty PHAM
[2023-09-20] MEDS: SEVELAMER CARBONATE 800 MG TABLET PO (17:03)
[2023-09-20 17:27] LABS: Bedside Glucose 141 mg/dL (74-106)
[2023-09-20] MEDS: Atorvastatin Calcium 80 MG Tablet PO (20:55)
[2023-09-20] MEDS: Mirtazapine 15 MG Tablet 7.5 MG PO (20:55)
[2023-09-20] MEDS: MELATONIN 3 MG TABLET PO (20:55)
[2023-09-20] MEDS: Pantoprazole Sodium 40 MG in 0.9% Normal Saline (100mL MB+) 100 ML 330 MG IV (20:56)
[2023-09-20 22:25] LABS: Bedside Glucose 135 mg/dL (74-106)
[2023-09-21] VITALS (16 sets, daily range): BP systolic 127–171; BP diastolic 45–78; PULSE 52–70; RESP 12–20; TEMP 36.4–37.1; O2SAT 88–98
--- NOTE | 2023-09-21 | GASB_PTH ---
PATHOLOGY RESULTS PATIENT: BARI LAUGHLIN LOC: [facility] U#:[id number] AGE/SX: 63/F ROOM: [facility] RE09/18/[address]: Dr. Thomas Muir MD : 1960 BED: 1 DIS: 09/22/2023 SPEC #: [id number] RECD: 09/21/23 09:39 STATUS: SHANNAN RELee #: [id number] ASHLEY: 09/21/23 00:[address]: Hardeep López DEPT: SURGICAL PATHOLOGY RECD BY: Jose Juan Mcgrath ENTERED: 09/21/23 09:39 SP TYPE: Gastric Bx OTHR DR: MD Dr. Elvin Stiles MD Tissues: Gastric mucous membrane Procedures: Surgery Specimen Level IV Comments: @ Ordering doctor for SUIV edited from to @ by NICK at 09/21/23 0951 @ Submitting doctor edited from to @ by NICK at 09/21/23 0951 HEADER OPERATION: EGD, biopsy PRE-OP DIAGNOSIS: Anemia TISSUE SUBMITTED: Gastric body biopsy MICROSCOPIC DIAGNOSIS Gastric body, biopsy: Mild chronic gastritis. See comment. AM:wayne 09/24/2023 COMMENT The results of immunohistochemistry for Helicobacter pylori will be reported separately ([id number]). MICROSCOPIC DESCRIPTION Slides are reviewed. GROSS DESCRIPTION Received in fixative is one container labeled with the patient's name and designated gastric body biopsy. The specimen consists of two irregular fragments of light aranda soft tissue that in aggregate measure 0.8 x 0.4 x 0.1 cm. The specimen is totally submitted in one cassette. / SJ:wayne 09/21/2023 TC:3 CPT: 34478
[2023-09-21 05:00] LABS: Absolute Lymphocyte Count 2.13 X10^3/uL (0.83-4.51); Absolute Neutrophil Count 8.6 X10^3/uL (2.0-7.7); Basophil# 0.05 X10^3/uL; Basophil% 0.4 % (0-1); Eosinophil# 0.16 X10^3/uL; Eosinophils% 1.3 % (0-5); Hematocrit 22.3 % (37-47); Hemoglobin 6.8 g/dL (12.0-15.0); Lymphocyte # 2.13 X10^3/ul (0.83-4.51); Lymphocyte % 17.2 % (19-41); Mean Corp Hgb Conc 30.5 g/dL (32-36); Mean Corpuscular Hgb 31.1 pg (27.0-32.0); Mean Corpuscular Volume 101.8 fL (81-99); Mean Platelet Vol. 8.9 fl (6.2-12.0); Monocyte# 1.26 X10^3/uL; Monocyte% 10.2 % (0-10); NRBC Flagged by Analyzer 0 % (0-5); Neutrophil % 69.4 % (47-70); Platelet Count 252 K/mm3 (150-450); RBC Distribution Width CV 16.3 % (11.6-14.6); RBC Distribution Width SD 60.5 fl (35.1-43.9); Red Blood Count 2.19 M/mm3 (4.2-5.4); White Blood Count 12.4 K/mm3 (4.4-11.0)
[2023-09-21 05:13] LABS: Anion Gap 6 (5-15); BUN 55 mg/dL (7-18); BUN/Creat Ratio 13.8 RATIO (10-20); Chloride 104 mmol/L (98-107); Creatinine, Serum 3.99 mg/dL (0.55-1.02); EST Glomerular Filtration Rate 12 mL/min (>60); Est Glom Filt Rate - Afr Amer 15 mL/min (>60); Estimated Creatinine Clearance 13.41 ml/min; Glucose 113 mg/dL (74-106); Magnesium 1.7 mg/dL (1.6-2.6); Potassium 4.3 mmol/L (3.5-5.1); Sodium Level 137 mmol/L (136-145)
[2023-09-21 05:24] LABS: Albumin, Serum 2.3 g/dL (3.2-5.0)
[2023-09-21] MEDS: Albuterol 2.5 MG/3 ML VIAL.NEB. INHALATION ×2 (05:27→17:00)
[2023-09-21] MEDS: 0.9% Normal Saline (1000mL) 1,000 ML 15 ML IV (05:57)
--- NOTE | 2023-09-21 06:30 | IMM_PTH ---
PATHOLOGY RESULTS PATIENT: BARI LAUGHLIN LOC: [facility] U#:[id number] AGE/SX: 63/F ROOM: [facility] RE09/18/[address]: Dr. Thomas Muir MD : 1960 BED: 1 DIS: 09/22/2023 SPEC #: [id number] RECD: 09/21/23 09:51 STATUS: SHANNAN RELee #: [id number] ASHLEY: 09/21/23 06:[address]: Hardeep López DEPT: IMMUNOHISTOCHEMISTRY RECD BY: Lupe Whittington ENTERED: 09/21/23 09:52 SP TYPE: IMMUNO OTHR DR: MD Dr. Elvin Stiles MD Tissues: Stomach, NOS Procedures: H Pylori (initial) PHYSICIAN & INSTITUTION [place] [phone] SPECIMEN INFORMATION: Tissue Source: Gastric body Clinical Info: Anemia Specimen Number: [id number] CPT code: 46451 METHODOLOGY: Deparaffinized sections of prefer/formalin-fixed tissue or PAP/DQ stained slides are incubated with monoclonal/polyclonal antibodies/oligonucleotide probes. Localization is made via biotin free immunoperoxidase method. Appropriate controls are performed and reacted as expected. Results on target cell population are indicated in the following table: RESULTS: ANTIBODY / CLONE RESULT H Pylori (polyclonal) negative These tests were developed and their performance characteristics determined by [facility]. They may not have been cleared or approved by the U.S. Food and Drug Administration. The FDA has determined that such clearance or approval is not necessary. The above immunohistochemical/dualISH markers are ordered and reviewed by the Pathologist. INTERPRETATION: Gastric body, biopsy: Negative for Helicobacter pylori organisms. AM:wayne 09/24/2023
[2023-09-21 06:46] LABS: Bedside Glucose 107 mg/dL (74-106)
--- NOTE | 2023-09-21 06:58 | OP.EGD_ITS ---
Patient Name: Beatris Obrien Procedure Date: 09/21/2023 6:20 AM Date of : 1960 Age: 63 Procedure: Upper GI endoscopy Indications: Iron deficiency anemia Providers: Hardeep López DO Medicines: Monitored Anesthesia Care Patient Profile: This is a 63 year old female. Refer to note in patient chart for documentation of history and physical. Patient has symptoms of chronic nausea. Complications: No immediate complications. Procedure: Pre-Anesthesia Assessment: - Prior to the procedure, a History and Physical was performed, and patient medications and allergies were reviewed. The patient is competent. The risks and benefits of the procedure and the sedation options and risks were discussed with the patient. All questions were answered and informed consent was obtained. Patient identification and proposed procedure were verified by the physician in the pre-procedure area. Mental Status Examination: alert and oriented. Airway Examination: normal oropharyngeal airway and neck mobility. Respiratory Examination: clear to auscultation. CV Examination: normal. Prophylactic Antibiotics: The patient does not require prophylactic antibiotics. Prior Anticoagulants: The patient has taken no anticoagulant or antiplatelet agents. ASA Grade Assessment: III - A patient with severe systemic disease. After reviewing the risks and benefits, the patient was deemed in satisfactory condition to undergo the procedure. The anesthesia plan was to use monitored anesthesia care (MAC). Immediately prior to administration of medications, the patient was re-assessed for adequacy to receive sedatives. The heart rate, respiratory rate, oxygen saturations, blood pressure, adequacy of pulmonary ventilation, and response to care were monitored throughout the procedure. The physical status of the patient was re-assessed after the procedure. After obtaining informed consent, the endoscope was passed under direct vision. Throughout the procedure, the patient's blood pressure, pulse, and oxygen saturations were monitored continuously. The Endoscope was introduced through the mouth, and advanced to the second part of duodenum. The upper GI endoscopy was accomplished without difficulty. The patient tolerated the procedure well. Scope In: 6:45:05 AM Scope Out: 6:51:06 AM Total Procedure Duration Time 0 hours 6 minutes 1 second Findings: The examined esophagus was normal. Moderate portal hypertensive gastropathy was found in the cardia, in the gastric fundus, in the gastric body and on the lesser curvature of the stomach. Biopsies were taken with a cold forceps for histology. Verification of patient identification for the specimen was done. Estimated blood loss was minimal. Biopsies were taken with a cold forceps for Helicobacter pylori testing. Verification of patient identification for the specimen was done. Estimated blood loss was minimal. Diffuse prominent gastric folds were found in the gastric body and on the greater curvature of the stomach. No gross lesions were noted in the second portion of the duodenum. Impression: - Normal esophagus. - Portal hypertensive gastropathy. Biopsied. - Enlarged gastric folds. - No gross lesions in the second portion of the duodenum. Recommendation: - [facility]. - Clear liquid diet today. - Continue present medications. - Await pathology results. Procedure Code(s): --- Professional --- 20163, Esophagogastroduodenoscopy, flexible, transoral; with biopsy, single or multiple CPT copyright 2021 [employer]. All rights reserved. The codes documented in this report are preliminary and upon television service engineer review may be revised to meet current compliance requirements. Hardeep López DO 09/21/2023 6:57:14 AM This report has been signed electronically. Number of Addenda: 0 Note Initiated On: 09/21/2023 6:20 AM
--- NOTE | 2023-09-21 06:58 | OP.CCLET_ITS ---
09/21/2023 Elvin Becerra Re : Upper GI endoscopy procedure for Beatris Obrien Dear Hernan This procedure was performed on Thursday, September 21, 2023. My impressions and recommendations are as follows: Impressions : - Normal esophagus. - Portal hypertensive gastropathy. Biopsied. - Enlarged gastric folds. - No gross lesions in the second portion of the duodenum. Recommendations : - [facility]. - Clear liquid diet today. - Continue present medications. - Await pathology results. My findings are described in the full procedure note, which is enclosed. If I can be of further assistance, please feel free to contact me at . Sincerely, Hardeep López, 09/21/2023 6:57:14 AM This report has been signed electronically.
[2023-09-21 07:49] LABS: Hemoglobin A1c 5.4 % (3.8-5.6)
[2023-09-21] MEDS: Pantoprazole Sodium 40 MG in 0.9% Normal Saline (100mL MB+) 100 ML 330 MG IV ×2 (07:52→21:07)
--- NOTE | 2023-09-21 08:54 | PN.HOSP_ITS ---
Reason for Visit Reason for Visit: Diagnoses Anemia, unspecified (09/18/23) Unspecified atrial fibrillation (09/18/23) Cellulitis of left lower limb (09/18/23) End stage renal disease (09/18/23) Subjective Subjective Patient underwent EGD by Dr. López today prior results as below. - Normal esophagus. - Portal hypertensive gastropathy. Biopsied. - Enlarged gastric folds. - No gross lesions in the second portion of the duodenum. Patient hemoglobin down to 6.8 additional ordered for transfusion Objective Data Objective Data Vital Signs: Vital Signs Temp Pulse Resp BP Pulse Ox O2 Del Method O2 Flow Rate 98.7 F 52 L 12 141/54 H 97 Nasal Cannula 2 09/21/23 08:00 09/21/23 08:00 09/21/23 08:00 09/21/23 08:00 09/21/23 08:00 09/21/23 08:00 09/21/23 08:00 Oxygen Flow Rate (L/min) 2 Oxygen Delivery Method Nasal Cannula Weight: 69 kg Body Mass Index (BMI) 25.4 Intake & Output: Intake and Output for Last 24 Hours 09/19/23 09/20/23 09/21/23 23:59 23:59 23:59 Intake Total 283.75 / 283.75 160 / 160 110 / 110 Output Total 7350 / 7350 Balance 283.75 / 283.75 -7190 / -7190 110 / 110 Lab / Micro Data 09/21/23 04:45 09/21/23 04:45 Labs: Laboratory Results - last 24 hr 09/20/23 17:08: POC Glucose 141 H 09/20/23 21:00: POC Glucose 135 H 09/21/23 04:45: WBC 12.4 H, RBC 2.19 L, Hgb 6.8 L, Hct 22.3 L, MCV 101.8 H, MCH 31.1, MCHC 30.5 L, RDW Std Deviation 60.5 H, RDW Coeff of Lola 16.3 H, Plt Count 252, MPV 8.9, Immature Gran % (Auto) 1.500 H, Neut % (Auto) 69.4, Lymph % (Auto) 17.2 L, [place] % (Auto) 10.2 H, Eos % (Auto) 1.3, Baso % (Auto) 0.4, Absolute Neuts (auto) 8.6 H, Absolute Lymphs (auto) 2.13, Nucleated RBC % 0, Sodium 137, Potassium 4.3, Chloride 104, Carbon Dioxide 27.0, Anion Gap 6, BUN 55 H, Creatinine 3.99 H, Estim Creat Clear Calc 13.41, Est GFR (MDRD) Af Amer 15 L, Est GFR (MDRD) Non-Af 12 L, BUN/Creatinine Ratio 13.8, Glucose 113 H, Hemoglobin A1c 5.4, Calcium 9.0, Phosphorus 6.0 H, Magnesium 1.7, Albumin 2.3 L 09/21/23 04:56: POC Glucose 107 H Micro: Microbiology 09/18/23 12:04 Stool Stool Occult Blood (CAROL) - Final Occult Blood Positive Physical Exam Narrative GENERAL: cooperative HEENT: Atraumatic; normocephalic EYES; Anicteric, Normal Conjunctiva NECK; supple, normal thyroid, RESPIRATORY: Diminished to auscultation CARDIOVASCULAR: Regular S1-S2 GI: soft, normoactive bowel sounds, : No Renal angle tenderness; EXTREMITIES: No edema, no clubbing, MUSCULOSKELETAL: no muscle wasting NEURO: Awake; no lateralizing signs. SKIN: No Rash PSYCH; Flat affect Assessment & Plan Assessment/Plan (1) Atrial fibrillation with RVR: (2) Anemia: (3) Cellulitis of left leg: PLAN: Plan Patient is a 63-year-old lady with multiple comorbidities who was admitted following dialysis with progressive generalized weakness. Patient was found to be in A-fib with RVR, with left lower extremity cellulitis as well as symptomatic anemia admitted to monitored bed for further management 1. Acute symptomatic anemia ? Patient hemoglobin in the emergency department was 7.0. Stool for guaiac came back positive. Patient is on dual antiplatelet therapy with aspirin and Plavix both medications held. Patient was typed and crossmatched and order was given for patient to be transfused with 1 unit PRBC. Patient was started on Protonix drip consult placed to Dr. López with GI for possible endoscopic evaluation ? 09/19/2023 patient was transfused 1 unit PRBC hemoglobinSerially monitored did go up to 8.1 following her transfusion, down to 7.1 ? 09/20/2023 patient has received total of 2 unit PRBC hemoglobin up to 7.4. Awaiting endoscopic evaluation by GI ? 09/21/2023;Patient underwent EGD by Dr. López today prior results as below. - Normal esophagus. - Portal hypertensive gastropathy. Biopsied. - Enlarged gastric folds. - No gross lesions in the second portion of the duodenum. Patient hemoglobin down to 6.8 additional ordered for transfusion 2. Acute GI bleed ? Possibly upper GI bleed management as discussed above 3. New onset A-fib with RVR ? Possibly depressed stated by her Symptomatic anemia. Admitted to monitored bed for continuous telemetry monitoring as part of her management ordered 2D echo and serial cardiac enzymes. Patient currently not a candidate for systemic anticoagulation given her active GI bleed ? 09/19/2023 patient converted on Cardizem drip which has since been weaned off started on p.o. Cardizem ? 09/20/2023; patient remains in sinus rhythm given patient being bradycardic Cardizem was discontinued 4. Left lower extremity cellulitis ? Patient is apparently allergic to penicillin she was however started on ceftriaxone and vanc 5. Elevated troponin ? Secondary to suspected myocardial injury from patient's anemia as well as A- fib with RVR. Given patient underlying history of coronary artery disease serial cardiac enzymes ordered for monitoring patient placed on continuous telemetry 6. Coronary artery disease ? With previous PCI patient is on guideline directed medical therapy. Her antiplatelet therapy however held given her active GI bleed 7. Hypertension - Blood pressure controlled, home medications continued with dose adjustment as needed 8. End-stage renal disease ? On dialysis nephrology consulted for dialysis orders 9. GERD ? On PPI 10. Depression ? Patient is on SSRI continued 11. Dyslipidemia -Patient is on statin therapy, continued at home dose 12. DVT prophylaxis ? SCDs only given her GI bleed Time spent in the patient's overall evaluation,decision-making process, review of diagnostic data, adjustment of management, discussion with other providers, nursing nursing and ancillary staff involved in patient's care documentation, 35 Minutes
[2023-09-21] MEDS: Ceftriaxone 1 GM/50 ML BAG IV (09:02)
[2023-09-21] MEDS: SEVELAMER CARBONATE 800 MG TABLET PO ×2 (10:03→16:46)
[2023-09-21] MEDS: Sertraline 50 MG Tablet 25 MG PO (10:03)
[2023-09-21] MEDS: Carvedilol 25 MG Tablet PO ×2 (10:04→21:08)
[2023-09-21] MEDS: Cholecalciferol (VIT D3) 25 MCG TABLET (1,000 UNITS) 50 MCG PO (10:04)
[2023-09-21] MEDS: Torsemide 100 MG Tablet PO (10:04)
[2023-09-21] MEDS: traMADol 50 MG Tablet PO ×2 (10:12→22:59)
--- NOTE | 2023-09-21 11:03 | CASEMGMT ---
Per RN CM patient expressed difficulties with utilities, food, and transportation. SW met with patient. Introduced self and role at [facility]. SW asked patient about her concerns. Patient said she is not having difficulties with utilities she just needs to move. SW asked patient if she would like a list of available apartments in the area, patient said no. SW asked patient about food and transportation. Patient said she has all the resources she needs. SW asked patient if she has heard of [employer]. SW then explained [employer] and how they could help with an aide, equipment, and meals. Patient declined stating she has what she needs she just needs to get to places to get applications. Patient again declined any resources SW offered. Naty Lei [employer]
--- NOTE | 2023-09-21 13:03 | PCM.PN.REN ---
Subjective Subjective Sitting on side of bed, no complaints Objective Data Objective Data Vital Signs: Vital Signs Temp Pulse Resp BP Pulse Ox O2 Del Method O2 Flow Rate 98.6 F 62 16 140/60 H 97 Nasal Cannula 2 09/21/23 12:12 09/21/23 12:12 09/21/23 12:12 09/21/23 12:12 09/21/23 12:12 09/21/23 12:12 09/21/23 12:12 Oxygen Flow Rate (L/min) 2 Oxygen Delivery Method Nasal Cannula Weight: 69 kg Body Mass Index (BMI) 25.4 Intake & Output: Intake and Output for Last 24 Hours 09/19/23 09/20/23 09/21/23 23:59 23:59 23:59 Intake Total 283.75 / 283.75 160 / 160 161 / 161 Output Total 7350 / 7350 2450 / 2450 Balance 283.75 / 283.75 -7190 / -7190 -2289 / -2289 Lab / Micro Data 09/21/23 04:45 09/21/23 04:45 Labs: Laboratory Results - last 24 hr 09/18/23 12:04: Crossmatch See Detail 09/20/23 17:08: POC Glucose 141 H 09/20/23 21:00: POC Glucose 135 H 09/21/23 04:45: WBC 12.4 H, RBC 2.19 L, Hgb 6.8 L, Hct 22.3 L, MCV 101.8 H, MCH 31.1, MCHC 30.5 L, RDW Std Deviation 60.5 H, RDW Coeff of Lola 16.3 H, Plt Count 252, MPV 8.9, Immature Gran % (Auto) 1.500 H, Neut % (Auto) 69.4, Lymph % (Auto) 17.2 L, [place] % (Auto) 10.2 H, Eos % (Auto) 1.3, Baso % (Auto) 0.4, Absolute Neuts (auto) 8.6 H, Absolute Lymphs (auto) 2.13, Nucleated RBC % 0, Sodium 137, Potassium 4.3, Chloride 104, Carbon Dioxide 27.0, Anion Gap 6, BUN 55 H, Creatinine 3.99 H, Estim Creat Clear Calc 13.41, Est GFR (MDRD) Af Amer 15 L, Est GFR (MDRD) Non-Af 12 L, BUN/Creatinine Ratio 13.8, Glucose 113 H, Hemoglobin A1c 5.4, Calcium 9.0, Phosphorus 6.0 H, Magnesium 1.7, Albumin 2.3 L 09/21/23 04:56: POC Glucose 107 H Micro: Microbiology 09/18/23 12:04 Stool Stool Occult Blood (CAROL) - Final Occult Blood Positive Physical Exam Narrative Alert awake oriented x 3 no obvious distress s1s2 no murmurs lungs clear abdomen soft no edema Assessment & Plan Assessment/Plan (1) ESRD (end stage renal disease): PLAN: No acute indication for [employer] today, next HD tomorrow using AVF. hgb 6.8, to get PRBC again. Patient underwent EGD today: normal esophagus, portal gastropathy, biopsied no gross lesions. Tachycardia, Improved, off cardizem gtt. On carvedilol.
[2023-09-21 16:52] LABS: Bedside Glucose 101 mg/dL (74-106)
[2023-09-21] MEDS: MELATONIN 3 MG TABLET PO (21:07)
[2023-09-21] MEDS: Mirtazapine 15 MG Tablet 7.5 MG PO (21:08)
[2023-09-21] MEDS: Atorvastatin Calcium 80 MG Tablet PO (21:08)
[2023-09-21 22:22] LABS: Bedside Glucose 142 mg/dL (74-106)
[2023-09-22] VITALS (16 sets, daily range): BP systolic 152–289; BP diastolic 49–89; PULSE 58–74; RESP 14–20; TEMP 36.3–36.6; O2SAT 93–98; BMI 25.3; BMI 24.8
[2023-09-22 06:51] LABS: Bedside Glucose 95 mg/dL (74-106)
--- NOTE | 2023-09-22 08:55 | PN.HOSP_ITS ---
Reason for Visit Reason for Visit: Diagnoses Anemia, unspecified (09/18/23) Unspecified atrial fibrillation (09/18/23) Cellulitis of left lower limb (09/18/23) End stage renal disease (09/18/23) Subjective Subjective Patient seen currently undergoing dialysis. Hemoglobin up to 8.5 following blood transfusion. Plan is for patient to be discharged with home health Objective Data Objective Data Vital Signs: Vital Signs Temp Pulse Resp BP Pulse Ox O2 Del Method O2 Flow Rate 97.6 F L 63 17 187/72 H 96 Nasal Cannula 4 09/22/23 05:15 09/22/23 08:47 09/22/23 08:47 09/22/23 08:47 09/22/23 08:47 09/22/23 08:47 09/22/23 08:47 Oxygen Flow Rate (L/min) 4 Oxygen Delivery Method Nasal Cannula Weight: 69 kg Body Mass Index (BMI) 25.3 Intake & Output: Intake and Output for Last 24 Hours 09/20/23 09/21/23 09/22/23 23:59 23:59 23:59 Intake Total 160 / 160 271 / 271 1000 / 1000 Output Total 7350 / 7350 4900 / 4900 Balance -7190 / -7190 -4629 / -4629 1000 / 1000 Lab / Micro Data 09/22/23 08:58 09/21/23 04:45 Labs: Laboratory Results - last 24 hr 09/18/23 12:04: Crossmatch See Detail 09/21/23 16:21: POC Glucose 101 09/21/23 21:28: POC Glucose 142 H 09/22/23 06:05: POC Glucose 95 Micro: Microbiology 09/18/23 12:04 Stool Stool Occult Blood (CAROL) - Final Occult Blood Positive Physical Exam Narrative GENERAL: cooperative HEENT: Atraumatic; normocephalic EYES; Anicteric, Normal Conjunctiva NECK; supple, normal thyroid, RESPIRATORY: Diminished to auscultation CARDIOVASCULAR: Regular S1-S2 GI: soft, normoactive bowel sounds, : No Renal angle tenderness; EXTREMITIES: No edema, no clubbing, MUSCULOSKELETAL: no muscle wasting NEURO: Awake; no lateralizing signs. SKIN: No Rash PSYCH; Flat affect Assessment & Plan Assessment/Plan (1) Atrial fibrillation with RVR: (2) Anemia: (3) Cellulitis of left leg: PLAN: Plan Patient is a 63-year-old lady with multiple comorbidities who was admitted following dialysis with progressive generalized weakness. Patient was found to be in A-fib with RVR, with left lower extremity cellulitis as well as symptomatic anemia admitted to monitored bed for further management 1. Acute symptomatic anemia ? Patient hemoglobin in the emergency department was 7.0. Stool for guaiac came back positive. Patient is on dual antiplatelet therapy with aspirin and Plavix both medications held. Patient was typed and crossmatched and order was given for patient to be transfused with 1 unit PRBC. Patient was started on Protonix drip consult placed to Dr. López with GI for possible endoscopic evaluation ? 09/19/2023 patient was transfused 1 unit PRBC hemoglobinSerially monitored did go up to 8.1 following her transfusion, down to 7.1 ? 09/20/2023 patient has received total of 2 unit PRBC hemoglobin up to 7.4. Awaiting endoscopic evaluation by GI ? 09/21/2023;Patient underwent EGD by Dr. López today prior results as below. - Normal esophagus. - Portal hypertensive gastropathy. Biopsied. - Enlarged gastric folds. - No gross lesions in the second portion of the duodenum. Patient hemoglobin down to 6.8 additional ordered for transfusion ? 09/22/2023; patient hemoglobin came up to 8.5 following transfusion 1 unit PRBC 2. Acute GI bleed ? Possibly upper GI bleed management as discussed above 3. New onset A-fib with RVR ? Possibly depressed stated by her Symptomatic anemia. Admitted to monitored bed for continuous telemetry monitoring as part of her management ordered 2D echo and serial cardiac enzymes. Patient currently not a candidate for systemic anticoagulation given her active GI bleed ? 09/19/2023 patient converted on Cardizem drip which has since been weaned off started on p.o. Cardizem ? 09/20/2023; patient remains in sinus rhythm given patient being bradycardic Cardizem was discontinued 4. Left lower extremity cellulitis ? Patient is apparently allergic to penicillin she was however started on ceftriaxone and vanc 5. Elevated troponin ? Secondary to suspected myocardial injury from patient's anemia as well as A- fib with RVR. Given patient underlying history of coronary artery disease serial cardiac enzymes ordered for monitoring patient placed on continuous telemetry 6. Coronary artery disease ? With previous PCI patient is on guideline directed medical therapy. Her antiplatelet therapy however held given her active GI bleed 7. Hypertension - Blood pressure controlled, home medications continued with dose adjustment as needed 8. End-stage renal disease ? On dialysis nephrology consulted for dialysis orders 9. GERD ? On PPI 10. Depression ? Patient is on SSRI continued 11. Dyslipidemia -Patient is on statin therapy, continued at home dose 12. DVT prophylaxis ? SCDs only given her GI bleed Time spent in the patient's overall evaluation,decision-making process, review of diagnostic data, adjustment of management, discussion with other providers, nursing nursing and ancillary staff involved in patient's care documentation, 35 Minutes Charges/Coding Visit Charges Inpatient E&M: 71303 Subs Hosp L2
[2023-09-22 09:02] LABS: Absolute Lymphocyte Count 2.06 X10^3/uL (0.83-4.51); Absolute Neutrophil Count 9.6 X10^3/uL (2.0-7.7); Basophil% 0.8 % (0-1); Eosinophil# 0.14 X10^3/uL; Eosinophils% 1.1 % (0-5); Hemoglobin 8.5 g/dL (12.0-15.0); Lymphocyte # 2.06 X10^3/ul (0.83-4.51); Lymphocyte % 15.5 % (19-41); Mean Corp Hgb Conc 31.5 g/dL (32-36); Mean Corpuscular Hgb 31.1 pg (27.0-32.0); Mean Corpuscular Volume 98.9 fL (81-99); Mean Platelet Vol. 9.1 fl (6.2-12.0); Monocyte# 1.24 X10^3/uL; Monocyte% 9.3 % (0-10); NRBC Flagged by Analyzer 0 % (0-5); Neutrophil % 72.2 % (47-70); Platelet Count 271 K/mm3 (150-450); RBC Distribution Width CV 17.2 % (11.6-14.6); RBC Distribution Width SD 60.2 fl (35.1-43.9); Red Blood Count 2.73 M/mm3 (4.2-5.4); White Blood Count 13.3 K/mm3 (4.4-11.0)
[2023-09-22] MEDS: Carvedilol 25 MG Tablet PO (09:10)
[2023-09-22] MEDS: Folic Acid/Vitamin B Comp W-C 1 Capsule 1 CAP PO (09:10)
[2023-09-22] MEDS: SEVELAMER CARBONATE 800 MG TABLET PO ×2 (09:10→12:29)
[2023-09-22] MEDS: Pantoprazole Sodium 40 MG in 0.9% Normal Saline (100mL MB+) 100 ML 330 MG IV (09:10)
[2023-09-22] MEDS: Cholecalciferol (VIT D3) 25 MCG TABLET (1,000 UNITS) 50 MCG PO (09:11)
[2023-09-22] MEDS: 0.9% Saline Lock 10 ML Syringe IV (09:12)
[2023-09-22] MEDS: Sertraline 50 MG Tablet 25 MG PO (09:12)
--- NOTE | 2023-09-22 09:13 | DS.PCM_ITS ---
Providers Date of Admission: 09/18/23 Date of Discharge: 09/22/23 Primary Care Physician: Dr. Elvin Becerra MD Consultations 09/18/23 15:15 Consult: Gastroenterology Routine Consulting Provider: [facility] Reason for Consult: GI bleed EMERGENT Consult: No MD Notified: Yes Date Notified: 09/18/23 Time Notified: 13:10 Method of Notification: Text Reason For Visit: AFIB WITH RVR, ANEMIA Diagnosis Discharge Diagnosis (1) Atrial fibrillation with RVR: Status: Acute Code(s): I48.91 - Unspecified atrial fibrillation (2) Anemia: Status: Acute Code(s): D64.9 - Anemia, unspecified (3) Cellulitis of left leg: Status: Acute Code(s): L03.116 - Cellulitis of left lower limb Plan Patient is a 63-year-old lady with multiple comorbidities who was admitted following dialysis with progressive generalized weakness. Patient was found to be in A-fib with RVR, with left lower extremity cellulitis as well as symptomatic anemia admitted to monitored bed for further management 1. Acute symptomatic anemia ? Patient hemoglobin in the emergency department was 7.0. Stool for guaiac came back positive. Patient is on dual antiplatelet therapy with aspirin and Plavix both medications held. Patient was typed and crossmatched and order was given for patient to be transfused with 1 unit PRBC. Patient was started on Protonix drip consult placed to Dr. López with GI for possible endoscopic evaluation ? 09/19/2023 patient was transfused 1 unit PRBC hemoglobinSerially monitored did go up to 8.1 following her transfusion, down to 7.1 ? 09/20/2023 patient has received total of 2 unit PRBC hemoglobin up to 7.4. Awaiting endoscopic evaluation by GI ? 09/21/2023;Patient underwent EGD by Dr. López today prior results as below. - Normal esophagus. - Portal hypertensive gastropathy. Biopsied. - Enlarged gastric folds. - No gross lesions in the second portion of the duodenum. Patient hemoglobin down to 6.8 additional ordered for transfusion ? 09/22/2023; patient hemoglobin came up to 8.5 following transfusion 1 unit PRBC. Patient was discharged on iron tablets 2. Acute GI bleed ? Possibly upper GI bleed management as discussed above 3. New onset A-fib with RVR ? Possibly depressed stated by her Symptomatic anemia. Admitted to monitored bed for continuous telemetry monitoring as part of her management ordered 2D echo and serial cardiac enzymes. Patient currently not a candidate for systemic anticoagulation given her active GI bleed ? 09/19/2023 patient converted on Cardizem drip which has since been weaned off started on p.o. Cardizem ? 09/20/2023; patient remains in sinus rhythm given patient being bradycardic Cardizem was discontinued 4. Left lower extremity cellulitis ? Patient is apparently allergic to penicillin she was however started on ceftriaxone and vanc ? Patient was discharged on cefdinir 5. Elevated troponin ? Secondary to suspected myocardial injury from patient's anemia as well as A- fib with RVR. Given patient underlying history of coronary artery disease serial cardiac enzymes ordered for monitoring patient placed on continuous telemetry 6. Coronary artery disease ? With previous PCI patient is on guideline directed medical therapy. Her antiplatelet therapy however held given her active GI bleed ? Patient dual antiplatelet therapy resumed on discharge 7. Hypertension - Blood pressure controlled, home medications continued with dose adjustment as needed 8. End-stage renal disease ? On dialysis nephrology consulted for dialysis orders 9. GERD ? On PPI 10. Depression ? Patient is on SSRI continued 11. Dyslipidemia -Patient is on statin therapy, continued at home dose 12. DVT prophylaxis ? SCDs only given her GI bleed Time spent in the patient's overall evaluation,decision-making process, review of diagnostic data, adjustment of management, discussion with other providers, nursing nursing and ancillary staff involved in patient's care documentation, 35 Minutes Medications at Discharge Home Medications cholecalciferol (vitamin D3) 25 mcg (1,000 unit) capsule 50 mcg PO DAILY SUPPLEMENT 10/02/21 aspirin 81 mg tablet,delayed release 81 mg PO DAILY HEART 11/14/22 atorvastatin 80 mg tablet 80 mg PO QHS CHOLESTEROL 11/14/22 carvedilol 25 mg tablet 25 mg PO BID HEART 11/14/22 clopidogrel 75 mg tablet 75 mg PO DAILY BLOOD THINNER 11/14/22 mirtazapine 7.5 mg tablet 7.5 mg PO QHS INSOMNIA 11/14/22 nitroglycerin 0.4 mg sublingual tablet 0.4 mg sublingual DAILY PRN CHEST PAIN 11/14/22 pantoprazole 40 mg tablet,delayed release 40 mg PO DAILY ACID REFLUX 11/14/22 sevelamer carbonate 800 mg tablet 800 mg PO TIDCM PHOSPHATE 11/14/22 vitamin B complex-vitamin C-folic acid 0.8 mg tablet (Mojgan-Kirk) 1 tab PO DAILY SUPPLEMENT 11/14/22 acetaminophen 325 mg capsule 650 mg PO BID PRN PAIN 08/07/23 albuterol sulfate 90 mcg/actuation aerosol inhaler (Ventolin HFA) 1 puff inhalation Q4H PRN WHEEZING 08/07/23 nifedipine 90 mg tablet,extended release 24 hr 90 mg PO BID BLOOD PRESSURE 08/07/23 sertraline 25 mg tablet 25 mg PO DAILY DEPRESSION 08/07/23 torsemide 100 mg tablet 100 mg PO QODAY diuretic 09/18/23 cefdinir 300 mg capsule 300 mg PO BID #10 caps 09/22/23 hydralazine 25 mg tablet 25 mg PO TID #90 tabs 09/22/23 polysaccharide iron complex 150 mg iron capsule (Ferrex) 150 mg PO DAILY #60 caps 09/22/23 Hospital Course Summary of Care Provided Minutes Spent on Discharge: 35 Physical Exam Narrative GENERAL: cooperative HEENT: Atraumatic; normocephalic EYES; Anicteric, Normal Conjunctiva NECK; supple, normal thyroid, RESPIRATORY: Diminished to auscultation CARDIOVASCULAR: Regular S1-S2 GI: soft, normoactive bowel sounds, : No Renal angle tenderness; EXTREMITIES: No edema, no clubbing, MUSCULOSKELETAL: no muscle wasting NEURO: Awake; no lateralizing signs. SKIN: No Rash PSYCH; Flat affect Weight / BMI Weight Weight: 69 kg Body Mass Index (BMI) 25.3 ABG / Lab / Microbiology Data 09/22/23 08:58 09/22/23 08:58 Laboratory: Laboratory Results - last 24 hr 09/18/23 12:04: Crossmatch See Detail 09/21/23 16:21: POC Glucose 101 09/21/23 21:28: POC Glucose 142 H 09/22/23 06:05: POC Glucose 95 09/22/23 08:58: WBC 13.3 H, RBC 2.73 L, Hgb 8.5 L, Hct 27.0 L, MCV 98.9, MCH 31.1, MCHC 31.5 L, RDW Std Deviation 60.2 H, RDW Coeff of Lola 17.2 H, Plt Count 271, MPV 9.1, Immature Gran % (Auto) 1.100 H, Neut % (Auto) 72.2 H, Lymph % (Auto) 15.5 L, [place] % (Auto) 9.3, Eos % (Auto) 1.1, Baso % (Auto) 0.8, Absolute Neuts (auto) 9.6 H, Absolute Lymphs (auto) 2.06, Nucleated RBC % 0 Microbiology: Microbiology 09/18/23 12:04 Stool Stool Occult Blood (CAROL) - Final Occult Blood Positive D/C Instructions Discharge Diet: Renal Diet Discharge Activity: Return to Normal Activity Call your doctor if you observe: Fever of 101 or Higher, Shortness of breath, Fainting spells and Chest pain Meaningful Use Info Meaningful Use Diagnoses (Choose all that apply): None applicable Discharge Plan Admission Admit Date/Time: 09/18/23 13:03 Attending Provider: Thomas Muir Primary Care Provider: Elvin Becerra Discharge Orders/Prescriptions Prescriptions: New polysaccharide iron complex [Ferrex 150] 150 mg iron Capsule 150 mg PO DAILY Qty: 60 0RF cefdinir 300 mg capsule 300 mg PO BID Qty: 10 0RF hydralazine 25 mg tablet 25 mg PO TID Qty: 90 0RF Continued cholecalciferol (vitamin D3) 25 mcg (1,000 unit) capsule 50 mcg PO DAILY atorvastatin 80 mg tablet 80 mg PO QHS carvedilol 25 mg tablet 25 mg PO BID clopidogrel 75 mg tablet 75 mg PO DAILY aspirin 81 mg tablet,delayed release (DR/EC) 81 mg PO DAILY pantoprazole 40 mg tablet,delayed release (DR/EC) 40 mg PO DAILY [place]irk 0.8 mg tablet 1 tab PO DAILY mirtazapine 7.5 mg tablet 7.5 mg PO QHS sevelamer carbonate 800 mg tablet 800 mg PO TIDCM nitroglycerin 0.4 mg tablet, sublingual 0.4 mg sublingual DAILY PRN (Reason: CHEST PAIN ) Rx Instructions: Dissolve 1 tablet under the tongue as needed for chest pain. torsemide 100 mg tablet 100 mg PO QODAY Patient Comments: Take 1 tablet by mouth every other day. Take once per day on NON dialysis days, Sunday nifedipine 90 mg tablet extended release 24hr 90 mg PO BID sertraline 25 mg tablet 25 mg PO DAILY acetaminophen 325 mg capsule 650 mg PO BID PRN (Reason: PAIN ) albuterol sulfate [Ventolin HFA] 90 mcg/actuation HFA aerosol inhaler 1 puff inhalation Q4H PRN (Reason: WHEEZING ) Referrals / Follow Up: Elvin Becerra MD [Primary Care Provider] - Disposition Disposition (needs filled in before D/C Order can be placed): Home Health Servi ce Charges/Coding Visit Charges Inpatient E&M: 93796 Disch Hosp >30min
[2023-09-22 09:17] LABS: ALB/GLOB Ratio 0.5 RATIO (0.9-2.4); AST(SGOT) 9 U/L (15-37); Alanine Aminotransfer ALT/SGPT 16 U/L (13-56); Albumin, Serum 2.5 g/dL (3.2-5.0); Alkaline Phosphatase 61 U/L (45-117); Anion Gap 9 (5-15); BUN 70 mg/dL (7-18); BUN/Creat Ratio 13.8 RATIO (10-20); Calcium,Total 9.5 mg/dL (8.5-10.1); Chloride 101 mmol/L (98-107); Creatinine, Serum 5.09 mg/dL (0.55-1.02); EST Glomerular Filtration Rate 9 mL/min (>60); Est Glom Filt Rate - Afr Amer 11 mL/min (>60); Estimated Creatinine Clearance 10.51 ml/min; Globulin 4.6 g/dL (2.2-4.2); Glucose 204 mg/dL (74-106); Potassium 4.3 mmol/L (3.5-5.1); Protein, Total 7.1 g/dL (6.4-8.2); Sodium Level 132 mmol/L (136-145)
[2023-09-22] MEDS: PureFlow B 2K Dialysis Soln 1 BAG 6 BAG PF (09:22)
[2023-09-22] MEDS: 0.9% Normal Saline 1,000 ML IV.SOLN. 1000 ML OPERA.SITE (09:22)
[2023-09-22] MEDS: Epoetin Alfa epbx 10,000 UNITS/ML 20000 UNIT IV (09:31)
[2023-09-22] MEDS: Albuterol 2.5 MG/3 ML VIAL.NEB. INHALATION (11:40)
[2023-09-22] MEDS: Ceftriaxone 1 GM/50 ML BAG IV (12:28)
[2023-09-22] MEDS: Iron Polysaccharide Complex 150 MG CAPSULE PO (12:28)
[2023-09-22 12:54] LABS: Bedside Glucose 92 mg/dL (74-106)
== END 2023-09-22 16:20 | disposition home health service (06) | DRG 308 ==
LOC: ED 13:00 → PCU 13:29
PROVIDERS: Anesthesiology; Family Medicine; Internal Medicine Gastroenterology; Admitting Provider Internal Medicine; Emergency Provider Emergency Medicine; PCP Family Medicine; Visit Provider Internal Medicine
PROC: 0DJ08ZZ Inspection of Upper Intestinal Tract, Via Natural or Artificial Opening Endoscopic (ICD-10-PCS; CPT 43235; principal; 2023-09-21 06:25)
DX: I48.91 Unspecified atrial fibrillation (principal); N18.6 End stage renal disease; I13.2 Hypertensive heart and chronic kidney disease with heart failure and with stage 5 chronic kidney disease, or end stage renal disease; K76.6 Portal hypertension; I5A Non-ischemic myocardial injury (non-traumatic); K92.2 Gastrointestinal hemorrhage, unspecified; L03.116 Cellulitis of left lower limb; E11.22 Type 2 diabetes mellitus with diabetic chronic kidney disease; Z99.2 Dependence on renal dialysis; D64.9 Anemia, unspecified; F32.A Depression, unspecified; I25.10 Atherosclerotic heart disease of native coronary artery without angina pectoris; E87.6 Hypokalemia; E78.5 Hyperlipidemia, unspecified; K21.9 Gastro-esophageal reflux disease without esophagitis; Z79.82 Long term (current) use of aspirin; Z66 Do not resuscitate; Z95.5 Presence of coronary angioplasty implant and graft; Z87.891 Personal history of nicotine dependence; Z79.02 Long term (current) use of antithrombotics/antiplatelets
CPT/HCPCS: 36415; 71045; 80048; 80053; 81001; 82040; 82274; 82962; 83036; 83735; 84100; 84484; 85014; 85018; 85025; 86850; 86900; 86901; 86920; 88305; 88342; 90937; 93005; 93306; 93971; 94640; 97802; 99285; J7030; J7040; J7050; P9016; Q9957; A4216; G0257; J2405; Q5106

== ENCOUNTER 2023-09-30 16:50 | Emergency (ER) | payer MEDICARE, MEDICAID, SELFPAY ==
[2023-09-30 16:51] VITALS: BP 152/47; PULSE 70; RESP 18; TEMP 36.3; O2SAT 97
[2023-09-30 16:52] VITALS: BMI 28.6
--- NOTE | 2023-09-30 18:19 | EDS_ITS ---
HPI <LEFTY Ricketts - Last Filed: 09/30/23 21:32> History of Present Illness Chief Complaint: Abscess Narrative Narrative: Patient presenting today with concerns for an abscess to her left buttocks that she has had for the past week and a half. She reports that it is becoming increasingly more uncomfortable. She reports that it has neither grown nor gotten smaller over this timeframe. She denies any fevers or chills. She reports that she did have cellulitis in her left leg and recently completed a course of antibiotics. PMH includes CKD on dialysis, hyperlipidemia, and hypertension. PFSH <LEFTY Ricketts - Last Filed: 09/30/23 21:32> PFSH Medical History AAA (abdominal aortic aneurysm) Acute hypoxemic respiratory failure Anxiety Asthma Bilateral pleural effusion Congestive heart failure (CHF) Coronary artery disease Depression Diabetes Dialysis patient History of high cholesterol Kidney disease Migraines Myocardial infarct On home oxygen therapy PTSD (post-traumatic stress disorder) Sleep apnea Substance abuse Home Medications cholecalciferol (vitamin D3) 25 mcg (1,000 unit) capsule 50 mcg PO DAILY SUPPLEMENT 10/02/21 [History Last Taken 08/07/23] aspirin 81 mg tablet,delayed release 81 mg PO DAILY HEART 11/14/22 [History Last Taken 08/07/23] atorvastatin 80 mg tablet 80 mg PO QHS CHOLESTEROL 11/14/22 [History Last Taken 08/06/23] carvedilol 25 mg tablet 25 mg PO BID HEART 11/14/22 [History Last Taken 08/07] clopidogrel 75 mg tablet 75 mg PO DAILY BLOOD THINNER 11/14/22 [History Last Taken 08/07/23] mirtazapine 7.5 mg tablet 7.5 mg PO QHS INSOMNIA 11/14/22 [History Last Taken 08/06/23] nitroglycerin 0.4 mg sublingual tablet 0.4 mg sublingual DAILY PRN CHEST PAIN 11/14/22 [History Last Taken Unknown] pantoprazole 40 mg tablet,delayed release 40 mg PO DAILY ACID REFLUX 11/14/22 [History Last Taken 08/07/23] sevelamer carbonate 800 mg tablet 800 mg PO TIDCM PHOSPHATE 11/14/22 [History Last Taken 08/06/23] vitamin B complex-vitamin C-folic acid 0.8 mg tablet (Mojgan-Kirk) 1 tab PO DAILY SUPPLEMENT 11/14/22 [History Last Taken 08/07/23] acetaminophen 325 mg capsule 650 mg PO BID PRN PAIN 08/07/23 [History Last Taken 08/06/23] albuterol sulfate 90 mcg/actuation aerosol inhaler (Ventolin HFA) 1 puff inhalation Q4H PRN WHEEZING 08/07/23 [History Last Taken Unknown] nifedipine 90 mg tablet,extended release 24 hr 90 mg PO BID BLOOD PRESSURE 08/07/23 [History Last Taken 08/07/23] sertraline 25 mg tablet 25 mg PO DAILY DEPRESSION 08/07/23 [History Last Taken 08/07/23] torsemide 100 mg tablet 100 mg PO QODAY diuretic 09/18/23 [History Last Taken Unknown] cefdinir 300 mg capsule 300 mg PO BID #10 caps 09/22/23 [Rx Last Taken Unknown] hydralazine 25 mg tablet 25 mg PO TID #90 tabs 09/22/23 [Rx Last Taken Unknown] polysaccharide iron complex 150 mg iron capsule (Ferrex) 150 mg PO DAILY #60 caps 09/22/23 [Rx Last Taken Unknown] cephalexin 250 mg capsule 250 mg PO .once 7 days #7 CAPSULES 09/30/23 [Rx Last Taken Unknown] hydrocodone-acetaminophen 5-325mg 5mg-325mg 1 tab PO Q4H PRN PRN Pain 3 days #10 TABLETS 09/30/23 [Rx Last Taken Unknown] Allergy/AdvReac Type Severity Reaction Status Date / Time Latex, Natural Rubber Allergy Rash Verified 09/30/23 16:51 Penicillins Allergy Rash Verified 09/30/23 16:51 Family History Other CAD (coronary artery disease) Heart disease Surgical History H/O tubal ligation History of arteriovenostomy for renal dialysis History of section, classical History of colectomy History of coronary artery stent placement History of ligation of vein History of total hysterectomy Hx of umbilical hernia repair Social History household members: none Smoking Status: Former smoker substance use type: does not use ROS <LEFTY Ricketts - Last Filed: 09/30/23 21:32> ROS ED Constitutional Constitutional ED: Denies chills or fever(s) Cardiovascular Cardiovascular: Denies chest pain Respiratory/Chest Respiratory/Chest: Denies cough or dyspnea Gastrointestinal Gastrointestinal: Denies abdominal pain, nausea or vomiting Musculoskeletal Musculoskeletal: Denies arthralgias or myalgias Integumentary Reports abscess Neurologic Neurologic: Denies weakness EXAM <LEFTY Ricketts Last Filed: 09/30/23 21:32> Physical Exam Const Vital Signs: 09/30/23 16:51 Temperature 97.4 F L Temperature Source Temporal Pulse Rate 70 Respiratory Rate 18 Blood Pressure 152/47 H Blood Pressure Mean 82 Pulse Ox 97 Oxygen Delivery Method Room Air Positive well nourished, well developed and no apparent distress General Appearance ED: well developed HEENT Reports normocephalic and head/scalp atraumatic Mouth ED: Yes moist mucous membranes normal Eyes PERRL and EOMs intact bilaterally Neck full ROM and supple Chest Wall inspection of chest normal Resp normal respiratory effort and clear to auscultation bilaterally Cardio regular rate and regular rhythm GI soft to palpation, non-tender, non-distended and no masses Back/Spine normal ROM and normal to inspection Extremity normal to inspection and full ROM Neuro oriented x3, CN's II-XII intact bilaterally, moves all extremities, no focal motor deficits and no sensory deficits noted Sensorium / Orientation: awake and alert Psych mental status grossly normal and thought process normal Skin Skin Narrative: 3 cm x 3 cm well-circumscribed cystlike mobile lesion under the skin of the left buttocks. The skin covering the lesion somewhat erythemic but no lymphangitic streaking or warmth. Rashes: No rashes noted <Dr. Kimberly Shields DO - Last Filed: 10/07/23 10:39> Physical Exam Const Vital Signs: 09/30/23 16:51 Temperature 97.4 F L Temperature Source Temporal Pulse Rate 70 Respiratory Rate 18 Blood Pressure 152/47 H Blood Pressure Mean 82 Pulse Ox 97 Oxygen Delivery Method Room Air MDM <LEFTY Ricketts - Last Filed: 09/30/23 21:32> MDM MDM Narrative Medical decision making narrative: Patient presenting today with a lesion to her left buttocks. She is concerned that this could be a abscess. She has a well-circumscribed cystlike lesion.she recently had a cellulitic infection on her left leg and finished antibiotics for this. I do not see any cellulitis to her left lower extremity today. I did attempt to aspirate the lesion but nothing came out. We will cover her with renally dosed Keflex and have encouraged her to follow-up with her PCP. She reports that she has an appointment with him next week. She has been given return instructions and will be discharged home in stable condition. She was given pain medication here and will be given a short course of [place] for her pain. <Dr. Kimberly Shields, DO - Last Filed: 10/07/23 10:39> [facility] Narrative Medical decision making narrative: Patient presenting today with a lesion to her left buttocks. She is concerned that this could be a abscess. She has a well-circumscribed cystlike lesion.she recently had a cellulitic infection on her left leg and finished antibiotics for this. I do not see any cellulitis to her left lower extremity today. I did attempt to aspirate the lesion but nothing came out. We will cover her with renally dosed Keflex and have encouraged her to follow-up with her PCP. She reports that she has an appointment with him next week. She has been given return instructions and will be discharged home in stable condition. She was given pain medication here and will be given a short course of [place] for her pain. I have personally performed a face to face assessment of the patient and have reviewed the GALO Note. I performed a substantive portion of the visit including all aspects of the following. My wong findings include: History is Patient is 63-year-old female with history of end-stage renal disease on hemodialysis (had hemodialysis earlier today but cut it short because of pain) presenting with left buttocks pain and redness. Denies any systemic symptoms. No she has been having to shorten her recent hemodialysis sessions because too painful for her to sit. Patient has a 3 x 3 cm well-circumscribed erythematous indurated mobile lesion on the left gluteal fold. There is no associated lymphangitic streaking. There is no significant fluctuance. It is mildly warm. Bedside ultrasound does not show an obvious fluid collection and a needle aspiration obtained by PA which was negative for any purulence. Patient be started on Keflex and given [place] for pain control. At this time patient does not have any findings concerning for Ginger's gangrene or more severe infectious process. It possibly could be an inflamed/infected lymph node as well but this would be an odd site. Do not think this is an infected sebaceous cyst. Other additions or changes: [None] Procedures <LEFTY Ricketts - Last Filed: 09/30/23 21:32> Other Procedures Procedure(s): Left buttock cyst: ChloraPrep used to clean the area, 1% lidocaine was used to anesthetize the area, I did attempt to then aspirate the lesion but was unsuccessful. Wound was then bandaged. Discharge Plan Triage Chief Complaint: Abscess ED Midlevel Provider: Lorin Elkins ED Provider: Kimberly Shields Dx/Rx/DC Orders Clinical Impression: Pelvic abscess Instructions: ED Abscess Antibiotic Treatment Only Prescriptions: New cephalexin 250 mg capsule 250 mg PO .once 7 Days Qty: 7 0RF hydrocodone-acetaminophen 5-325 mg tablet 1 tab PO Q4H PRN PRN (Reason: Pain) 3 Days Qty: 10 0RF No Action cholecalciferol (vitamin D3) 25 mcg (1,000 unit) capsule 50 mcg PO DAILY atorvastatin 80 mg tablet 80 mg PO QHS carvedilol 25 mg tablet 25 mg PO BID clopidogrel 75 mg tablet 75 mg PO DAILY aspirin 81 mg tablet,delayed release (DR/EC) 81 mg PO DAILY pantoprazole 40 mg tablet,delayed release (DR/EC) 40 mg PO DAILY Mojgan-Kirk 0.8 mg tablet 1 tab PO DAILY mirtazapine 7.5 mg tablet 7.5 mg PO QHS sevelamer carbonate 800 mg tablet 800 mg PO TIDCM nitroglycerin 0.4 mg tablet, sublingual 0.4 mg sublingual DAILY PRN (Reason: CHEST PAIN ) Rx Instructions: Dissolve 1 tablet under the tongue as needed for chest pain. torsemide 100 mg tablet 100 mg PO QODAY Patient Comments: Take 1 tablet by mouth every other day. Take once per day on NON dialysis days, Sunday polysaccharide iron complex [Ferrex 150] 150 mg iron Capsule 150 mg PO DAILY Qty: 60 0RF cefdinir 300 mg capsule 300 mg PO BID Qty: 10 0RF hydralazine 25 mg tablet 25 mg PO TID Qty: 90 0RF nifedipine 90 mg tablet extended release 24hr 90 mg PO BID sertraline 25 mg tablet 25 mg PO DAILY acetaminophen 325 mg capsule 650 mg PO BID PRN (Reason: PAIN ) albuterol sulfate [Ventolin HFA] 90 mcg/actuation HFA aerosol inhaler 1 puff inhalation Q4H PRN (Reason: WHEEZING ) Primary Care Provider: Elvin Becerra Referrals: Elvin Becerra MD [Primary Care Provider] - 3-5 Days Activity Restrictions/Additional Instructions: Follow-up with your PCP and return for any worsening of your symptoms. Disposition Disposition: Home, Self Care Discharge Date/Time: 09/30/23 21:10
[2023-09-30] MEDS: Cephalexin 250 MG Capsule PO (20:01)
[2023-09-30] MEDS: HYDROcodone Bitartrate/Apap 5/325 Tablet PO (20:01)
== END 2023-09-30 21:10 | disposition home or self-care (01) ==
PROVIDERS: Emergency Provider Emergency Medicine; PCP Family Medicine; Visit Provider Emergency Medicine
DX: N73.9 Female pelvic inflammatory disease, unspecified (principal); Z99.2 Dependence on renal dialysis; I13.0 Hypertensive heart and chronic kidney disease with heart failure and stage 1 through stage 4 chronic kidney disease, or unspecified chronic kidney disease; I50.9 Heart failure, unspecified; E11.22 Type 2 diabetes mellitus with diabetic chronic kidney disease; N18.9 Chronic kidney disease, unspecified; Z87.891 Personal history of nicotine dependence; I25.10 Atherosclerotic heart disease of native coronary artery without angina pectoris; E78.00 Pure hypercholesterolemia, unspecified; I25.2 Old myocardial infarction; Z79.899 Other long term (current) drug therapy; Z79.82 Long term (current) use of aspirin; Z79.02 Long term (current) use of antithrombotics/antiplatelets; F32.A Depression, unspecified
CPT/HCPCS: 10160; 10060; 99283

== ENCOUNTER 2023-10-15 09:03 | Outpatient (RCR) | payer MEDICARE, MEDICAID, SELFPAY ==
[2023-10-15 09:19] VITALS: BP 149/61; PULSE 65; RESP 18; TEMP 36.5; BMI 28.3
--- NOTE | 2023-10-15 11:19 | PCM.WC.HP ---
History of Present Illness Date of Service: 10/15/23 Chief Complaint: Painful mass on left buttocks and bilateral elbows History of Wound: Patient is a 63 year old female who has a medical history of CKD on dialysis (fistula in right arm), pre-diabetic, she is on home oxygen, sleep apnea, hyperlipidemia, and hypertension. She quit smoking cigarettes a month ago and is now vaping as she tries to quit nicotine. She recently was in the ED on 09/30/23 for an abscess on her left buttocks. She states that they did an ultrasound in the ED and tried to drain it, unsuccessfully. She states that it is very painful to sit on. She states that she had it for a week or two when she went to the ED. She has also notice firm, tender area on her left elbow around the same time and just noticed an area forming on her right elbow in the past week. She states that she was on an antibiotic after leaving the ED. Her biggest concern is how painful it is to sit, especially during dialysis. She states she has tried sitting on a donut pillow and a regular pillow, but the pressure is so great that she has had to stop dialysis early in the past due to her discomfort. Progress of Wound: Left buttocks, ischial area, with a soft tissue mass that is mobile and firm. It is painful to palpation. No erythema or swelling. She has also has firm area on her left posterior, proximal forearm, near her elbow and a smaller firm area on her right posterior, proximal forearm near her right elbow. These areas are also tender to palpation. [facility] Medical History (Updated 10/15/23 @ 13:56 by Mercedes Truong PAYROLL AUDITOR, PAYROLL AUDITOR-C) AAA (abdominal aortic aneurysm) Acute hypoxemic respiratory failure Anxiety Asthma Bilateral pleural effusion Congestive heart failure (CHF) Coronary artery disease Depression Diabetes Dialysis patient History of high cholesterol Kidney disease Migraines Myocardial infarct On home oxygen therapy PTSD (post-traumatic stress disorder) Sleep apnea Substance abuse Home Medications cholecalciferol (vitamin D3) 25 mcg (1,000 unit) capsule 50 mcg PO DAILY SUPPLEMENT 10/02/21 [History Last Taken 08/07/23] aspirin 81 mg tablet,delayed release 81 mg PO DAILY HEART 11/14/22 [History Last Taken 08/07/23] atorvastatin 80 mg tablet 80 mg PO QHS CHOLESTEROL 11/14/22 [History Last Taken 08/06/23] carvedilol 25 mg tablet 25 mg PO BID HEART 11/14/22 [History Last Taken 08/07/23] clopidogrel 75 mg tablet 75 mg PO DAILY BLOOD THINNER 11/14/22 [History Last Taken 08/07/23] mirtazapine 7.5 mg tablet 7.5 mg PO QHS INSOMNIA 11/14/22 [History Last Taken 08/06/23] nitroglycerin 0.4 mg sublingual tablet 0.4 mg sublingual DAILY PRN CHEST PAIN 11/14/22 [History Last Taken Unknown] pantoprazole 40 mg tablet,delayed release 40 mg PO DAILY ACID REFLUX 11/14/22 [History Last Taken 08/07/23] sevelamer carbonate 800 mg tablet 800 mg PO TIDCM PHOSPHATE 11/14/22 [History Last Taken 08/06/23] vitamin B complex-vitamin C-folic acid 0.8 mg tablet (Mojgan-Kirk) 1 tab PO DAILY SUPPLEMENT 11/14/22 [History Last Taken 08/07/23] acetaminophen 325 mg capsule 650 mg PO BID PRN PAIN 08/07/23 [History Last Taken 08/06/23] albuterol sulfate 90 mcg/actuation aerosol inhaler (Ventolin HFA) 1 puff inhalation Q4H PRN WHEEZING 08/07/23 [History Last Taken Unknown] nifedipine 90 mg tablet,extended release 24 hr 90 mg PO BID BLOOD PRESSURE 08/07/23 [History Last Taken 08/07/23] sertraline 25 mg tablet 25 mg PO DAILY DEPRESSION 08/07/23 [History Last Taken 08/07/23] torsemide 100 mg tablet 100 mg PO QODAY diuretic 09/18/23 [History Last Taken Unknown] cefdinir 300 mg capsule 300 mg PO BID #10 caps 09/22/23 [Rx Last Taken Unknown] hydralazine 25 mg tablet 25 mg PO TID #90 tabs 09/22/23 [Rx Last Taken Unknown] polysaccharide iron complex 150 mg iron capsule (Ferrex) 150 mg PO DAILY #60 caps 09/22/23 [Rx Last Taken Unknown] cephalexin 250 mg capsule 250 mg PO .once 7 days #7 CAPSULES 09/30/23 [Rx Last Taken Unknown] hydrocodone-acetaminophen 5-325mg 5mg-325mg 1 tab PO Q4H PRN PRN Pain 3 days #10 TABLETS 09/30/23 [Rx Last Taken Unknown] Allergy/AdvReac Type Severity Reaction Status Date / Time Latex, Natural Rubber Allergy Rash Verified 09/30/23 16:51 Penicillins Allergy Rash Verified 09/30/23 16:51 Family History Other CAD (coronary artery disease) Heart disease Surgical History H/O tubal ligation History of arteriovenostomy for renal dialysis History of section, classical History of colectomy History of coronary artery stent placement History of ligation of vein History of total hysterectomy Hx of umbilical hernia repair Social History (Updated 10/15/23 @ 13:32 by Mercedes Truong PAYROLL AUDITOR, PAYROLL AUDITOR-C) household members: none Smoking Status: Current every day smoker tobacco type: e-cigarettes substance use type: does not use ROS Constitutional Constitutional: Denies chills or fever(s) Eyes Eyes: Reports none ENT HEENT: Reports none Cardiovascular Cardiovascular: Denies chest pain Respiratory/Chest Respiratory/Chest: Reports dry cough and other Details: home oxygen Gastrointestinal Gastrointestinal: Denies diarrhea or nausea Genitourinary Genitourinary: Reports systems reviewed and no addt'l complaints, except as documented Musculoskeletal Musculoskeletal: Reports joint stiffness Integumentary Integumentary: Reports sores Neurologic Neurologic: Reports systems reviewed and no addt'l complaints, except as documented Psychiatric Psychiatric: Reports as per HPI Endocrine Endocrinology: Reports as per HPI Vital Signs Vital Signs Vital Signs: 10/15/23 09:19 Temperature 97.7 F L Temperature Source Temporal Pulse Rate 65 Respiratory Rate 18 Blood Pressure 149/61 H Blood Pressure Mean 90 Blood Pressure Source Monitor Blood Pressure Position Sitting Blood Pressure Location Left Arm Oxygen Delivery Method Nasal Cannula Weight Weight: 165 lb Body Mass Index (BMI) 28.3 Physical Exam Const alert and oriented x3 General Appearance: cooperative HEENT normocephalic Head and Scalp: atraumatic Eyes General Eye: normal appearance of both eyes Neck full ROM Lymph Lymphatic: no lymphedema noted Resp normal respiratory effort and normal air movement Resp Narrative: Using portable oxygen Effort and Inspection: able to speak in complete sentences Cardio regular rate, S1 normal heart sound and S2 normal heart sound GI normal to inspection, nondistended, normoactive bowel sounds and soft to palpation Back/Spine normal ROM Extremity full ROM, normal capillary refill and no pedal edema Skin Skin Narrative: Left buttock, ischial area, has a firm, very mobile mass that is tender to palpation. There is laxity of the surrounding tissue surrounding the mass. She also has a firm area on her left posterior, proximal forearm, near her elbow and one on her right posterior, proximal forearm, near her right elbow. These areas are palpable, firm and tender. Not as mobile as the one on her left buttock area. No erythema or swelling in any of the areas. Neuro oriented x3 Psych thought process normal and cooperative Debridement Note Debridement Note Post-Debridement Measurements and Additional Note: Post-Debridement Measurements/Treatment - Nurse 1 - General Ulcer Assessment Start: 10/15/23 09:19 Freq: Status: Active Protocol: WC.LOWEXT Activity Type Activity Date Activity User E-sign Co-sign Detail Recorded Client Recorded Date Recorded By Document 10/15/23 09:19 KW Desktop 10/15/23 09:31 KW 10/15/23 09:19 - Today's Visit Information Type of service Initial Visit Arrival Mode Ambulatory Patient Identification Verified (Name & Yes ) Height and Weight Height 5 ft 4 in Weight 165 lb Weight in Pounds 165.0 lbs Weight Measurement Method Estimated by Patient Body Mass Index (BMI) 28.3 BMI Classification Overweight BSA - Fazal 1.80 Vital Signs Temperature (97.8 F-99.1 F) 97.7 F L Temperature Source Temporal Pulse Rate (60-100) 65 Pulse Location Monitor Respiratory Rate (12-18) 18 Respiratory rate source Observation Oxygen Delivery Method Nasal Cannula Blood Pressure (90/60-120/80) 149/61 H Blood Pressure Mean 90 Source Monitor Position Sitting Blood Pressure Location Left Arm History Since Last Visit- (Skip if this is Patient's initial visit) Left Footwear Regular Shoe Right Footwear Regular Shoe Pain Scale: 0-10 Numeric Is Patient Pain Free? Yes Communication Assessment Preferred language [place] [employer] Rep Required No Able to Read Yes Able to Write Yes Communication Tools None Caregiver Communication Skills No Impairment Impairment Right Hearing Abillity Normal Left Hearing Abillity Normal Visual Assistive Devices Glasses Teaching Assessment Preferences Verbal,Written, Demonstration Barriers to Learning None Readiness To Learn Excellent Willingness to Engage in Self Management High Activies Readiness to Engage in Self Management High Activities Anxiety Level Calm Cooperation Cooperative Perception Coherent Interest in Health Problem Asks Questions Education Importance Acknowledges Need Does Patient Smoke tobacco or other Yes substances Smoking Status Current every day smoker Is Patient Diabetic No Functional Assessment Recent Decline in Ability to Perform Denies Any Declines Assistive Device With Patient No Culture/Buddhism/[facility] Cultural/Buddhism Needs that may affect No Treatment Plan Would you allow our hospital policy issue clerk to No meet you for the purpose of spiritual/ emotional support? [facility] to contact place of faith No WC - Nurse 2 - General Ulcer CM Notes Start: 10/15/23 09:19 Freq: Status: Active Protocol: Activity Type Activity Date Activity User E-sign Co-sign Detail Recorded Client Recorded Date Recorded By Document 10/15/23 09:52 Laptop 10/15/23 09:53 10/15/23 09:52 Pain Scale: 0-10 Numeric Is Patient Pain Free? Yes - Nurse 3 - General Ulcer D/C NN Start: 10/15/23 09:19 Freq: Status: Active Protocol: Activity Type Activity Date Activity User E-sign Co-sign Detail Recorded Client Recorded Date Recorded By Document 10/15/23 09:53 Laptop 10/15/23 09:53 10/15/23 09:53 Is Patient Pain Free? Yes - Visit Discharge Discharge Condition Stable Ambulatory Status Ambulatory Transportation Private Auto Medication Reconcilliation completed & Yes provided to patient/care provider Clinical Summary of Care Provided Yes Charges/Coding Visit Charges Office Visits / Consults: [id number] OV L4 Est 30min Assessment/Plan Assessment/Plan (1) Soft tissue mass: CODE(S): M79.89 - Other specified soft tissue disorders (2) Mass of left forearm: CODE(S): R22.32 - Localized swelling, mass and lump, left upper limb (3) Mass of right forearm: CODE(S): R22.31 - Localized swelling, mass and lump, right upper limb (4) End-stage renal disease on hemodialysis: CODE(S): N18.6 - End stage renal disease; Z99.2 - Dependence on renal dialysis (5) Diabetes: CODE(S): E11.9 - Type 2 diabetes mellitus without complications PLAN: Plan Patient evaluated at the wound healing center today. She has no open wounds present. For her painful left buttock mass, will refer her to [facility] for further evaluation of this mass, and for possible excision. She has a difficult time sitting due to the discomfort it causes. She has a hard time sitting in a recliner for the full length of her dialysis. She states she has to be careful how she sits during dialysis or she will have issues with her fistula. Suggested her sitting on a soft pillow (not a donut pillow) to help off load the area, but she states she has tried that and it causes more pain. Recommend shifting positions to get the pressure off the area but she states that is difficult during dialysis. I did suggest that when she sits down to try and pull the area up so there is no pressure on the mass (there is quite a bit of laxity in her skin where the left buttock mass is located). She will follow up in a month.
== END 2023-10-25 23:59 | disposition home or self-care (01) ==
LOC: WC 09:03
PROVIDERS: PCP Family Medicine; Referring Provider Family Medicine; Visit Provider Nurse Practitioner Family
DX: R22.2 Localized swelling, mass and lump, trunk (principal); I13.2 Hypertensive heart and chronic kidney disease with heart failure and with stage 5 chronic kidney disease, or end stage renal disease; N18.6 End stage renal disease; I50.9 Heart failure, unspecified; M79.89 Other specified soft tissue disorders; R73.03 Prediabetes; R22.33 Localized swelling, mass and lump, upper limb, bilateral; E78.00 Pure hypercholesterolemia, unspecified; I25.10 Atherosclerotic heart disease of native coronary artery without angina pectoris; Z99.2 Dependence on renal dialysis; F17.290 Nicotine dependence, other tobacco product, uncomplicated; Z79.02 Long term (current) use of antithrombotics/antiplatelets; Z79.82 Long term (current) use of aspirin; Z99.81 Dependence on supplemental oxygen
CPT/HCPCS: 99214; G0463

== ENCOUNTER → 2023-11-12 | Outpatient (CLI) | payer MEDICARE, MEDICAID, SELFPAY ==
--- NOTE | 2023-11-12 10:38 | US_ITS ---
HISTORY: MASS ON LEFT FOREARM. TECHNIQUE: Routine and color duplex imaging of the left forearm. 32 images. COMPARISON: None. FINDINGS: 1.5 x 4.6 x 5 cm hypoechoic shadowing and lobulated region with some internal flow corresponding to the palpable finding in the left forearm above the elbow. No fluid collection demonstrated. US/Ext Non Vasc Limited/Soft Tiss IMPRESSION: 5 cm solid lesion in the left forearm, corresponding to the palpable finding. Consider correlation with CT or MRI to assess for inflammatory lesion, posttraumatic lesion, or other soft tissue mass. Electronically Signed: Lizette Dunn MD at 9:57 EDT ,
--- NOTE | 2023-11-12 10:38 | US_ITS ---
HISTORY: mass/ lump on left buttocks. TECHNIQUE: Routine and color Doppler imaging of the left buttock. 42 images. COMPARISON: None. FINDINGS: 1.1 x 3.5 x 3.8 cm hypoechoic shadowing solid lesion corresponding to the palpable finding on the left buttock/upper thigh. 5 x 5 x 11 mm adjacent lymph node identified. US/Ext Non Vasc Limited/Soft Tiss IMPRESSION: Nonspecific left buttock soft tissue mass, which may represent inflammatory lesion or other soft tissue mass. Consider correlation CT or MRI to exclude neoplasm. Electronically Signed: Lizette Dunn MD at 15:24 EDT ,
== END | disposition home or self-care (01) ==
LOC: US 10:36
PROVIDERS: PCP Family Medicine; Referring Provider Surgery; Visit Provider Surgery
DX: R22.32 Localized swelling, mass and lump, left upper limb (principal); R22.31 Localized swelling, mass and lump, right upper limb; M79.89 Other specified soft tissue disorders
CPT/HCPCS: 76882

== ENCOUNTER 2023-11-22 17:46 | Emergency (ER) | payer MEDICARE, MEDICAID, SELFPAY ==
[2023-11-22 17:47] VITALS: BP 142/84; PULSE 65; RESP 16; TEMP 36.1; O2SAT 96; BMI 26.6
--- NOTE | 2023-11-22 18:22 | CT_ITS ---
EXAM: CT ANGIOGRAPHY OF THE RIGHT UPPER EXTREMITY WITH INTRAVENOUS CONTRAST CLINICAL INDICATION: pain swelling to fistula TECHNIQUE: Helically acquired angiography images of the right upper extremity with intravenous contrast using angiographic protocol. This CT exam was performed using one or more of the following dose reduction techniques: automated exposure control, adjustment of the mA and/or kV according to patient size, and/or use of iterative reconstruction technique. MIP reconstructed images were created and reviewed. CONTRAST: IV 100mL Isovue-300 COMPARISON: No relevant prior studies available. FINDINGS: VASCULATURE: AORTA: Unremarkable as visualized. No occlusion or significant stenosis. No dissection. RIGHT SUBCLAVIAN ARTERY: No acute findings. No occlusion or significant stenosis. No dissection. RIGHT AXILLARY ARTERY: No acute findings. No occlusion or significant stenosis. No dissection. RIGHT BRACHIAL ARTERY: No acute findings. No occlusion or significant stenosis. No dissection. RIGHT RADIAL ARTERY: No acute findings. No occlusion or significant stenosis. RIGHT ULNAR ARTERY: No acute findings. No occlusion or significant stenosis. UPPER EXTREMITY VEINS: There is dilatation of the axillary vein measuring 1.2 cm. UPPER EXTREMITY: BONES/JOINTS: Unremarkable. No acute fracture. No subluxation. Normal alignment. Preservation of the joint space. No sclerotic or destructive changes. SOFT TISSUES: There is a low-density fluid collection seen within the upper extremity and measures 8.7 x 5.6 x 8.5 cm. There is edema in the overlying subcutaneous tissues. This lesion does not appear to be connected to the vascular structures and may represent a large seroma or hematoma. Further evaluation with ultrasound may be beneficial. CT/CTA Upper Ext W/WO Contrast IMPRESSION: Large low-density collection in the soft tissues of the upper arm which does not appear to be vascular and may represent a large seroma or hematoma. Further evaluation with ultrasound may be beneficial. There is edema in the overlying soft tissues. Electronically Signed: Ishan Howell MD at 20:50 EDT ,
[2023-11-22 18:49] LABS: Absolute Lymphocyte Count 1.58 X10^3/uL (0.83-4.51); Absolute Neutrophil Count 6.8 X10^3/uL (2.0-7.7); Basophil# 0.08 X10^3/uL; Basophil% 0.8 % (0-1); Eosinophil# 0.11 X10^3/uL; Eosinophils% 1.1 % (0-5); Hematocrit 39.1 % (37-47); Lymphocyte # 1.58 X10^3/ul (0.83-4.51); Lymphocyte % 16.4 % (19-41); Mean Corp Hgb Conc 30.7 g/dL (32-36); Mean Corpuscular Hgb 29.5 pg (27.0-32.0); Mean Corpuscular Volume 96.1 fL (81-99); Mean Platelet Vol. 9.1 fl (6.2-12.0); Monocyte# 1.02 X10^3/uL; Monocyte% 10.6 % (0-10); NRBC Flagged by Analyzer 0 % (0-5); Neutrophil # 6.81 X10^3/uL (2.7-7.7); Neutrophil % 70.6 % (47-70); Platelet Count 230 K/mm3 (150-450); RBC Distribution Width CV 17.3 % (11.6-14.6); RBC Distribution Width SD 61.6 fl (35.1-43.9); Red Blood Count 4.07 M/mm3 (4.2-5.4); White Blood Count 9.7 K/mm3 (4.4-11.0)
[2023-11-22] MEDS: Ondansetron 4 MG/2 ML Vial IV (19:11)
[2023-11-22] MEDS: Morphine 4 MG/ML Syringe IV (19:11)
[2023-11-22 19:14] LABS: Anion Gap 8 (5-15); BUN 30 mg/dL (7-18); BUN/Creat Ratio 7.4 RATIO (10-20); Calcium,Total 10.1 mg/dL (8.5-10.1); Chloride 97 mmol/L (98-107); Creatinine, Serum 4.03 mg/dL (0.55-1.02); EST Glomerular Filtration Rate 12 mL/min (>60); Est Glom Filt Rate - Afr Amer 14 mL/min (>60); Glucose 163 mg/dL (74-106); Potassium 3.5 mmol/L (3.5-5.1); Sodium Level 133 mmol/L (136-145)
--- NOTE | 2023-11-22 21:49 | EDS_ITS ---
HPI History of Present Illness Chief Complaint: Upper Extremity Injury [facility] Medical History AAA (abdominal aortic aneurysm) Acute hypoxemic respiratory failure Anxiety Asthma Bilateral pleural effusion Congestive heart failure (CHF) Coronary artery disease Depression Diabetes Dialysis patient History of high cholesterol Kidney disease Migraines Myocardial infarct On home oxygen therapy PTSD (post-traumatic stress disorder) Sleep apnea Substance abuse Home Medications cholecalciferol (vitamin D3) 25 mcg (1,000 unit) capsule 50 mcg PO DAILY SUPPLEMENT 10/02/21 [History Last Taken 08/07/23] aspirin 81 mg tablet,delayed release 81 mg PO DAILY HEART 11/14/22 [History Last Taken 08/07/23] atorvastatin 80 mg tablet 80 mg PO QHS CHOLESTEROL 11/14/22 [History Last Taken 08/06/23] carvedilol 25 mg tablet 25 mg PO BID HEART 11/14/22 [History Last Taken 08/07/23] clopidogrel 75 mg tablet 75 mg PO DAILY BLOOD THINNER 11/14/22 [History Last Taken 08/07/23] nitroglycerin 0.4 mg sublingual tablet 0.4 mg sublingual DAILY PRN CHEST PAIN 11/14/22 [History Last Taken Unknown] pantoprazole 40 mg tablet,delayed release 40 mg PO DAILY ACID REFLUX 11/14/22 [History Last Taken 08/07/23] vitamin B complex-vitamin C-folic acid 0.8 mg tablet (Mojgan-Kirk) 1 tab PO DAILY SUPPLEMENT 11/14/22 [History Last Taken 08/07/23] acetaminophen 325 mg capsule 650 mg PO BID PRN PAIN 08/07/23 [History Last Taken 08/06/23] albuterol sulfate 90 mcg/actuation aerosol inhaler (Ventolin HFA) 1 puff inhalation Q4H PRN WHEEZING 08/07/23 [History Last Taken Unknown] nifedipine 90 mg tablet,extended release 24 hr 90 mg PO BID BLOOD PRESSURE 08/07/23 [History Last Taken 08/07/23] sertraline 25 mg tablet 25 mg PO DAILY DEPRESSION 08/07/23 [History Last Taken 08/07/23] hydralazine 25 mg tablet 25 mg PO TID #90 tabs 09/22/23 [Rx Last Taken Unknown] polysaccharide iron complex 150 mg iron capsule (Ferrex) 150 mg PO DAILY #60 caps 09/22/23 [Rx Last Taken Unknown] hydrocodone-acetaminophen 5-325mg 5mg-325mg 1 tab PO Q4H PRN PRN Pain 3 days #10 TABLETS 09/30/23 [Rx Last Taken Unknown] calcium acetate 667 mg tablet 667 mg PO TID 10/24/23 [History Last Taken Unknown] oxycodone-acetaminophen 5 mg-325 mg tablet 1 tab PO Q6H PRN PRN Pain 3 days #12 TABLETS 11/22/23 [Rx Last Taken Unknown] Allergy/AdvReac Type Severity Reaction Status Date / Time Latex, Natural Rubber Allergy Rash Verified 11/22/23 17:47 Penicillins Allergy Rash Verified 11/22/23 17:47 Family History (Reviewed 10/15/23 @ 13:31 by Mercedes Truong TEXTILE SLITTING MACHINE OPERATOR, TEXTILE SLITTING MACHINE OPERATOR-C) Other CAD (coronary artery disease) Heart disease Surgical History H/O tubal ligation History of arteriovenostomy for renal dialysis History of section, classical History of colectomy History of coronary artery stent placement History of ligation of vein History of total hysterectomy Hx of umbilical hernia repair Social History household members: none Smoking Status: Current every day smoker tobacco type: e-cigarettes substance use type: does not use EXAM Physical Exam Const Vital Signs: 11/22/23 17:47 Temperature 96.9 F L Temperature Source Temporal Pulse Rate 65 Respiratory Rate 16 Blood Pressure 142/84 H Blood Pressure Mean 103 Pulse Ox 96 Oxygen Delivery Method Room Air MDM MDM MDM Narrative Medical decision making narrative: Patient presents with swelling to her right upper arm that occurred during dialysis. Patient states that she states one of the needles may have become dislodged when she moved her arm about 2 hours into dialysis. Patient then had a bunch of fluid apparently that leaked out. Currently she complaining of swelling and pain to the right upper arm. Patient has a normal thrill. She does have some ecchymosis and bruising to the posterior part of the arm with fluid collection that is tender to palpation with ecchymosis and bruising. She is neurovascular intact distally. Discussed case with general surgeon on-call who recommended obtaining a CTA of the upper extremity as we did not have ultrasound available to do an ultrasound of the upper extremity. CTA was read by radiology as fluid collection that may represent large seroma or hematoma but did not feel this was a vascular process. 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 Vazquze who felt based on history most likely this was infiltration from the needle. He recommended elevation and heat to the area. I did give her 4 mg of morphine and 4 mg of Zofran IV here and she had some pain relief with that. I will send her home with a prescription for a few Percocet for pain. She was advised to keep her dialysis appointment in 2 days at the request of her assembler utility buildings. Lab Data Attestation: I reviewed the patient's lab results. Labs: Laboratory Results - last 24 hr 11/22/23 18:40 WBC 9.7 RBC 4.07 L Hgb 12.0 Hct 39.1 MCV 96.1 MCH 29.5 MCHC 30.7 L RDW Std Deviation 61.6 H RDW Coeff of Lola 17.3 H Plt Count 230 MPV 9.1 Immature Gran % (Auto) 0.500 Neut % (Auto) 70.6 H Lymph % (Auto) 16.4 L [place] % (Auto) 10.6 H Eos % (Auto) 1.1 Baso % (Auto) 0.8 Absolute Neuts (auto) 6.8 Absolute Lymphs (auto) 1.58 Nucleated RBC % 0 Sodium 133 L Potassium 3.5 Chloride 97 L Carbon Dioxide 28.0 Anion Gap 8 BUN 30 H Creatinine 4.03 H Estim Creat Clear Calc 13.40 Est GFR (MDRD) Af Amer 14 L Est GFR (MDRD) Non-Af 12 L BUN/Creatinine Ratio 7.4 L Glucose 163 H Calcium 10.1 Radiography Diagnostic Testing: Clinical Impression(s) from Imaging Studies Upper Extremity CTA 11/22/23 18:22 IMPRESSION: Large low-density collection in the soft tissues of the upper arm which does not appear to be vascular and may represent a large seroma or hematoma. Further evaluation with ultrasound may be beneficial. There is edema in the overlying soft tissues. Electronically Signed: Ishan Howell MD at 20:50 EDT , Discharge Plan Triage Chief Complaint: Upper Extremity Injury ED Provider: Azucena Mccann Dx/Rx/DC Orders Clinical Impression: Hematoma, Arm pain, right Instructions: ED Pain, Acute, Uncertain Cause Prescriptions: New oxycodone-acetaminophen [oxycodone-acetaminophen] 5-325 mg tablet 1 tab PO Q6H PRN PRN (Reason: Pain) 3 Days Qty: 12 0RF No Action calcium acetate 667 mg tablet 667 mg PO TID cholecalciferol (vitamin D3) 25 mcg (1,000 unit) capsule 50 mcg PO DAILY atorvastatin 80 mg tablet 80 mg PO QHS carvedilol 25 mg tablet 25 mg PO BID clopidogrel 75 mg tablet 75 mg PO DAILY aspirin 81 mg tablet,delayed release (DR/EC) 81 mg PO DAILY pantoprazole 40 mg tablet,delayed release (DR/EC) 40 mg PO DAILY Mojgan-Kirk 0.8 mg tablet 1 tab PO DAILY nitroglycerin 0.4 mg tablet, sublingual 0.4 mg sublingual DAILY PRN (Reason: CHEST PAIN ) Rx Instructions: Dissolve 1 tablet under the tongue as needed for chest pain. polysaccharide iron complex [Ferrex 150] 150 mg iron Capsule 150 mg PO DAILY Qty: 60 0RF hydralazine 25 mg tablet 25 mg PO TID Qty: 90 0RF hydrocodone-acetaminophen 5-325 mg tablet 1 tab PO Q4H PRN PRN (Reason: Pain) 3 Days Qty: 10 0RF nifedipine 90 mg tablet extended release 24hr 90 mg PO BID sertraline 25 mg tablet 25 mg PO DAILY acetaminophen 325 mg capsule 650 mg PO BID PRN (Reason: PAIN ) albuterol sulfate [Ventolin HFA] 90 mcg/actuation HFA aerosol inhaler 1 puff inhalation Q4H PRN (Reason: WHEEZING ) Primary Care Provider: Elvin Becerra Referrals: Elvin Becerra MD [Primary Care Provider] - Activity Restrictions/Additional Instructions: We suspect you may have infiltration of dialysis fluid from dialysis needle causing the swelling in your arm. Swelling may also potentially be related to bladder hematoma. Keep your appointment with dialysis in 2 days. Use elevation of the arm and warm compresses. Disposition Disposition: Home, Self Care
[2023-11-22 22:11] VITALS: BP 200/69; PULSE 96; RESP 18; TEMP 36.4; O2SAT 95
--- NOTE | 2023-11-22 22:24 | ED.RN ---
Dr. Mccann okay with pt discharge, pt states she has not taken her @ home BP meds and will when she gets home.
== END 2023-11-22 22:25 | disposition home or self-care (01) ==
PROVIDERS: Emergency Provider Emergency Medicine; PCP Family Medicine; Visit Provider Emergency Medicine
DX: S40.021A Contusion of right upper arm, initial encounter (principal); I50.9 Heart failure, unspecified; E11.9 Type 2 diabetes mellitus without complications; M79.601 Pain in right arm; X58.XXXA Exposure to other specified factors, initial encounter; Y92.89 Other specified places as the place of occurrence of the external cause; I25.10 Atherosclerotic heart disease of native coronary artery without angina pectoris; E78.00 Pure hypercholesterolemia, unspecified; I25.2 Old myocardial infarction; Z79.82 Long term (current) use of aspirin; Z79.899 Other long term (current) drug therapy; Z79.02 Long term (current) use of antithrombotics/antiplatelets; F32.A Depression, unspecified; Z98.51 Tubal ligation status; Z99.2 Dependence on renal dialysis; Z90.49 Acquired absence of other specified parts of digestive tract; Z95.5 Presence of coronary angioplasty implant and graft; Z90.710 Acquired absence of both cervix and uterus; F17.290 Nicotine dependence, other tobacco product, uncomplicated
CPT/HCPCS: 73206; 80048; 85025; 96374; 96375; 99283; Q9967; J2405

== ENCOUNTER → 2023-12-24 | Outpatient (CLI) | payer MEDICARE, MEDICAID, SELFPAY ==
--- NOTE | 2023-12-24 09:04 | CT_ITS ---
STUDY: CT ABDOMEN AND PELVIS WITH CONTRAST REASON FOR EXAM: Female, 63 years old. Subcutaneous mass -- include left upper thigh subcutaneous mass RADIATION DOSAGE (If Supplied By Facility): CTDIvol = ( 16.68 ) mGy, DLP = ( 717.57 ) mGycm TECHNIQUE: Transaxial images were obtained from the dome of the diaphragm to the symphysis pubis without oral contrast. IV 100mL Isovue-370 was administered. Sagittal and coronal images were reconstructed. Individualized dose optimization techniques were used for this CT. COMPARISON: Comparison is made with prior study dated April 18, 2019. FINDINGS: New left pleural effusion with left basilar atelectasis and/or scarring. Minimal right pleural effusion with right basilar atelectasis. Coronary artery calcification. Normal liver. Normal gallbladder and extrahepatic biliary system. Normal spleen. Normal pancreas. Persistent 4 cm x 3.3 cm soft tissue mass in the right adrenal gland. Since prior study, punctate calcifications are seen within it. Stable size. 1 cm cyst in the upper pole of the right kidney. 1.9 cm cyst in the inferior lateral aspect of the right kidney. Atrophy of the left kidney. Punctate nonobstructive calculus in the lower pole of the left kidney. Normal visualized stomach. Normal small intestine. Scattered sigmoid diverticulosis. There is non-visualization of the appendix. There is diffuse atherosclerotic calcification of the abdominal aorta and its major visceral vessels. There is evidence of an infrarenal abdominal aortic aneurysm with a transverse dimension of 3.6 cm. There is dense calcification of the distal abdominal aorta with moderate narrowing. Dense calcification of the common iliac arteries bilaterally. Normal inferior vena cava. Normal retroperitoneum. Normal urinary bladder. There is a 3.4 cm x 3.7 cm densely calcified soft tissue density in the medial aspect of the left upper buttock as well as a similar-appearing nodular density containing calcification in the medial aspect of the right buttock measuring 1.5 cm x 3 cm. These may represent sites of injection granulomas. Clinical correlation recommended. Surgical sutures are seen in the mid and lower anterior abdominal wall. In the inferior aspect of the incision overlying the pelvis, there is evidence of a 12 cm x 2.4 cm fluid collection suggestive of postoperative seroma. This is more prominent on the left side of the midline. There are mild degenerative changes of the visualized lumbar spine. CT/Abdomen/Pelvis WITH Contrast IMPRESSION: Postoperative changes in the anterior lower abdominal wall and pelvic wall as described with most likely postoperative seroma. Stable partially calcified nodule in the right adrenal gland. Small bilateral pleural effusions left greater than right with bibasilar atelectasis and/or scarring. Stable aneurysmal dilatation of the distal abdominal aorta with marked degree of calcific plaque and probably occlusion of the distal abdominal aorta and bilateral common iliac arteries. Densely calcified nodules in the posterior medial aspect of the buttocks bilaterally more prominent on the left side. This may represent areas of calcified injection granulomas. Electronically Signed: Richard Ndiaye MD at 14:46 EDT ,
== END | disposition home or self-care (01) ==
PROVIDERS: PCP Family Medicine; Referring Provider Surgery; Visit Provider Surgery
DX: M79.89 Other specified soft tissue disorders (principal)
CPT/HCPCS: 74177; Q9967

== ENCOUNTER 2024-01-08 07:19 | Emergency (ER) | payer MEDICARE, MEDICAID, SELFPAY ==
[2024-01-08] VITALS (7 sets, daily range): BP systolic 167–208; BP diastolic 71–99; PULSE 60–79; RESP 16–26; TEMP 35.9–36.4; O2SAT 95–99; BMI 26.9
--- NOTE | 2024-01-08 07:31 | CT_ITS ---
STUDY: CT BRAIN WITHOUT CONTRAST REASON FOR EXAM: Female, 64 years old. Headache RADIATION DOSAGE (If Supplied By Facility): CTDIvol = ( 44.99 ) mGy, DLP = ( 812.98 ) mGycm TECHNIQUE: Transaxial CT imaging of the brain was performed without administration of intravenous contrast material. Individualized dose optimization techniques were used for this CT. COMPARISON: No relevant priors. FINDINGS: Normal soft tissue structures. Normal calvarium. There is mild cerebral atrophy with widening of the extra-axial spaces and ventricular dilatation. Normal white matter tracts of the cerebral hemispheres. There are small punctate calcifications of the basal ganglia which are seen in the aging brain as a normal variant. Normal brainstem. Normal cerebellum. There is no intracranial hemorrhage. There are no findings of an acute ischemic infarction. Atherosclerotic calcific plaques at the level of the cavernous portions of the internal carotid arteries bilaterally. Normal visualized paranasal sinuses. CT/Brain/Head without Contrast IMPRESSION: Chronic involutional changes of the brain. Electronically Signed: Richard Ndiaye MD at 8:56 EDT ,
--- NOTE | 2024-01-08 07:31 | RAD_ITS ---
STUDY: X-RAY CHEST REASON FOR EXAM: Female, 64 years old. Dyspnea TECHNIQUE: PA and lateral views of the chest. COMPARISON: Comparison is made with prior study dated 2023. FINDINGS: EKG electrodes are seen. Surgical clips are seen in the right axilla. Vascular congestion and mild degree of CHF superimposed on chronic bibasilar pulmonary scarring. Blunting of both costophrenic angles in keeping with the small bilateral pleural effusions. There is mild cardiac enlargement. Normal mediastinum and mackenzie. Normal visualized pulmonary arteries. There is atherosclerotic calcification of the aortic arch with tortuosity. There are degenerative changes of the visualized thoracic spine. There is degenerative osteoarthritis of the bilateral shoulders. There is no demonstrated abnormality of the visualized soft tissue structures of the upper abdomen. RAD/Chest PA and Lateral IMPRESSION: Findings an consistent with a mild degree of CHF superimposed on bibasilar scarring with blunting of both costophrenic angles. Electronically Signed: Richard Ndiaye MD at 8:58 EDT ,
--- NOTE | 2024-01-08 07:32 | EX.ED.DYSGE1 ---
HPI History of Present Illness Chief Complaint: Shortness of Breath Informant: patient Narrative Narrative: Sent over from dialysis center with concerns for high blood pressure dyspnea. Dialysis Saturdays for the past year. She states history of COPD and chronic 2 L of oxygen. Started having dyspnea yesterday today dialysis reporting increased dyspnea and elevated blood pressure for sent here. No leg swelling. Occasional cough with her COPD. No chest pains. No abdominal pain. No vomiting. States slight headache on arrival. She is on Coreg 25 mg twice daily, hydralazine 25 mg 3 times daily. She states 6 days ago at PCPs office her nifedipine 90 mg twice daily was stopped and she is unclear of why. Normal blood pressure 140s to 150s. For blood pressure EMS systolic 190s. On arrival to 8 systolic. She does not take her blood pressure medicines in the morning dialysis until she gets back home. She has not taken it today. [facility] Medical History On home oxygen therapy AAA (abdominal aortic aneurysm) Bilateral pleural effusion Acute hypoxemic respiratory failure Substance abuse Diabetes Dialysis patient Sleep apnea Congestive heart failure (CHF) Myocardial infarct Coronary artery disease Migraines Asthma Kidney disease History of high cholesterol Anxiety Depression PTSD (post-traumatic stress disorder) Home Medications ?Medication ?Instructions ?Recorded ?Last Taken ?Type cholecalciferol (vitamin D3) 25 50 mcg PO DAILY SUPPLEMENT 10/02/21 08/07/23 History mcg (1,000 unit) capsule aspirin 81 mg tablet,delayed 81 mg PO DAILY HEART 11/14/22 08/07/23 History release atorvastatin 80 mg tablet 80 mg PO QHS CHOLESTEROL 11/14/22 08/06/23 History carvedilol 25 mg tablet 25 mg PO BID HEART 11/14/22 08/07/23 History clopidogrel 75 mg tablet 75 mg PO DAILY BLOOD THINNER 11/14/22 08/07/23 History nitroglycerin 0.4 mg sublingual 0.4 mg sublingual DAILY PRN CHEST 11/14/22 Unknown History tablet PAIN pantoprazole 40 mg tablet,delayed 40 mg PO DAILY ACID REFLUX 11/14/22 08/07/23 History release vitamin B complex-vitamin C-folic 1 tab PO DAILY SUPPLEMENT 11/14/22 08/07/23 History acid 0.8 mg tablet (Mojgan-Kirk) acetaminophen 325 mg capsule 650 mg PO BID PRN PAIN 08/07/23 08/06/23 History albuterol sulfate 90 mcg/actuation 1 puff inhalation Q4H PRN WHEEZING 08/07/23 Unknown History aerosol inhaler (Ventolin HFA) nifedipine 90 mg tablet,extended 90 mg PO BID BLOOD PRESSURE 08/07/23 08/07/23 History release 24 hr sertraline 25 mg tablet 25 mg PO DAILY DEPRESSION 08/07/23 08/07/23 History hydralazine 25 mg tablet 25 mg PO TID #90 tabs 09/22/23 Unknown Rx polysaccharide iron complex 150 mg 150 mg PO DAILY #60 caps 09/22/23 Unknown Rx iron capsule (Ferrex) hydrocodone-acetaminophen 5-325mg 1 tab PO Q4H PRN PRN Pain 3 days 09/30/23 Unknown Rx 5mg-325mg #10 TABLETS calcium acetate 667 mg tablet 667 mg PO TID 10/24/23 Unknown History oxycodone-acetaminophen 5 mg-325 1 tab PO Q6H PRN PRN Pain 3 days 11/22/23 Unknown Rx mg tablet #12 TABLETS nifedipine 90 mg tablet,extended 90 mg PO BID #60 tabs 01/08/24 Unknown Rx release Allergy/AdvReac Type Severity Reaction Status Date / Time Latex, Natural Rubber Allergy Rash Verified 01/08/24 07:31 Penicillins Allergy Rash Verified 01/08/24 07:31 Family History (Reviewed 10/15/23 @ 13:31 by Mercedes Trunog MICA MACHINE OPERATOR, MICA MACHINE OPERATOR-C) Other CAD (coronary artery disease) Heart disease Surgical History History of colectomy History of ligation of vein Hx of umbilical hernia repair History of arteriovenostomy for renal dialysis History of total hysterectomy History of coronary artery stent placement H/O tubal ligation History of section, classical Social History household members: none Smoking Status: Former smoker substance use type: does not use ROS ROS ED Constitutional Constitutional ED: Denies chills, fever(s) or sweats Eyes Eyes: Denies change in vision ENT ENT ED: Denies dysphagia or sore throat Cardiovascular Cardiovascular: Denies chest pain, leg edema, palpitations or racing heartbeat Respiratory/Chest Respiratory/Chest: Reports cough and dyspnea; Denies dyspnea on exertion Gastrointestinal Gastrointestinal: Denies abdominal pain, diarrhea, nausea or vomiting Genitourinary Genitourinary ED: Denies dysuria, hematuria or urinary frequency Musculoskeletal Musculoskeletal: Denies back pain, extremity pain or neck pain Integumentary Denies rash or wounds Neurologic Neurologic: Reports headache(s); Denies paresthesias or weakness EXAM Physical Exam Const Vital Signs: 01/08/24 07:19 01/08/24 07:19 01/08/24 07:31 Temperature 96.7 F L Temperature Source Temporal Pulse Rate 79 Respiratory Rate 26 H Respiratory Effort Short of Breath Labored Accessory Muscle Use Respiratory Depth Deep Respiratory Pattern Tachypnea Blood Pressure 208/99 H Blood Pressure Mean 135 Pulse Ox 96 95 Oxygen Delivery Method Nasal Cannula Nasal Cannula Nasal Cannula Oxygen Flow Rate (L/min) 4 4 4 01/08/24 08:19 01/08/24 09:00 01/08/24 10:00 Temperature Temperature Source Pulse Rate 75 67 60 Respiratory Rate 20 H 19 H 16 Respiratory Effort Respiratory Depth Respiratory Pattern Blood Pressure 201/74 H 171/71 H 170/98 H Blood Pressure Mean 116 104 122 Pulse Ox 95 95 98 Oxygen Delivery Method Nasal Cannula Nasal Cannula Room Air Oxygen Flow Rate (L/min) 2 2 01/08/24 11:00 01/08/24 11:45 Temperature 97.6 F L Temperature Source Pulse Rate 64 64 Respiratory Rate 18 18 Respiratory Effort Respiratory Depth Respiratory Pattern Blood Pressure 172/78 H 167/78 H Blood Pressure Mean 109 107 Pulse Ox 98 99 Oxygen Delivery Method Room Air Oxygen Flow Rate (L/min) Positive well nourished and well developed Constitutional Narrative: 2 L nasal cannula General Appearance ED: well developed and NAD HEENT Reports moist mucous membranes normocephalic and atraumatic Eyes EOMs intact bilaterally and conjunctivae normal General Eye ED: Yes normal appearance of both eyes Neck no lymphadenopathy and supple General: Negative for tenderness Chest Wall Chest: Negative for tenderness Resp normal respiratory effort Resp Narrative: Diminished breath sounds at the bases. Effort and Inspection: symmetric chest movement; Negative for respiratory distress Cardio regular rate, regular rhythm and no murmurs Peripheral Pulses: pulses 2+ throughout GI normal to inspection, nondistended, normoactive bowel sounds and non-tender Palpation: Negative for guarding or rebound tenderness present Back/Spine no CVA tenderness and no thoracic nor lumbar tenderness Extremity normal to inspection General Extremety ED: Negative for edema or tenderness General Extremity: Negative for edema Neuro oriented x3 and no sensory deficits noted Sensorium / Orientation: awake and alert Skin no rashes or lesions noted and no wounds MDM MDM MDM Narrative Medical decision making narrative: Interventions / MDM: Differential diagnosis: Accelerated hypertension, end-stage renal disease on dialysis, electrolyte abnormalities Diagnosis considered but do not suspect: Hypertensive emergency however workup negative. Intracranial hemorrhage however CT negative. Pneumonia however chest x-ray negative. My EKG interpretation: Sinus 78, no ST or T wave changes, PAC noted. Electronically was reading a flutter however slight wandering baseline therefore not likely flutter. Imaging independently reviewed and interpreted by myself: 2 view chest x-ray vascular congestion with pleural effusion. Also read by radiology. External documents reviewed: N/A Test considered but not ordered:N/A ED course: Patient in no respiratory distress. Continue 2 L oxygen. Blood pressure 208/99 with slight headache symptoms there is no focal deficits. Labs were drawn EKG with no hyperkalemic changes. She is given initial home regimen of hydralazine and Coreg as she had not taken it this morning. CT brain ordered. Chest x-ray ordered. 0840: Patient returned from CT. Systolic blood pressure 180/140s. Clinically stable, dyspnea improved on her continue 2 L of oxygen. Will give her her nifedipine home dosing of 90 mg. Chest x-ray with vascular congestion. 0930: Labs potassium 3.0 creatinine BUN elevation with her end-stage renal disease. White count was 17. No urine symptoms. Chest x-ray negative for infection. He will 9.7 stable. COVID and influenza negative. 1045: She feels better blood pressure improved down to 170/98 with her medications. We discussed with her dialysis center, she will be able to be transferred back to dialysis to continue her dialysis today. Will refill her nifedipine as it is unclear why her PCP stopped it 8 days ago. She states that she was doing fine with her medications. Re-evaluation: stable Disposition discussed with patient/family/significant other: Patient Case discussed with consulting clinician: N/A This note was generated with [employer] dictation software. It may contain incorrect words, spelling, and punctuation that were not noted in checking the note before signing. Lab Data Attestation: I reviewed the patient's lab results. Labs: Laboratory Results - last 24 hr 01/08/24 07:45 WBC 17.0 H RBC 3.19 L Hgb 9.7 L Hct 30.8 L MCV 96.6 MCH 30.4 MCHC 31.5 L RDW Std Deviation 61.5 H RDW Coeff of Lola 17.6 H Plt Count 206 MPV 9.7 Immature Gran % (Auto) 0.600 Neut % (Auto) 83.0 H Lymph % (Auto) 8.3 L [place] % (Auto) 7.0 Eos % (Auto) 0.7 Baso % (Auto) 0.4 Absolute Neuts (auto) 14.1 H Absolute Lymphs (auto) 1.41 Nucleated RBC % 0 Sodium 136 Potassium 3.0 L Chloride 99 Carbon Dioxide 27.0 Anion Gap 10 BUN 43 H Creatinine 5.12 H Estim Creat Clear Calc 10.46 Est GFR (MDRD) Af Amer 11 L Est GFR (MDRD) Non-Af 9 L BUN/Creatinine Ratio 8.4 L Glucose 155 H Calcium 9.1 Radiography Diagnostic Testing: Clinical Impression(s) from Imaging Studies Brain CT 01/08/24 07:31 IMPRESSION: Chronic involutional changes of the brain. Electronically Signed: Richard Ndiaye MD at 8:56 EDT , Chest X-Ray 01/08/24 07:31 IMPRESSION: Findings an consistent with a mild degree of CHF superimposed on bibasilar scarring with blunting of both costophrenic angles. Electronically Signed: Richard Ndiaye MD at 8:58 EDT , Discharge Plan Triage Chief Complaint: Shortness of Breath ED Provider: Delonte Zafar Dx/Rx/DC Orders Clinical Impression: Elevated blood pressure reading in office with diagnosis of hypertension, ESRD (end stage renal disease), COPD (chronic obstructive pulmonary disease), Pleural effusion Instructions: ED Chronic Kidney Disease (CKD), ED Hypertension, Established Prescriptions: New nifedipine 90 mg tablet extended release 90 mg PO BID Qty: 60 0RF No Action calcium acetate 667 mg tablet 667 mg PO TID cholecalciferol (vitamin D3) 25 mcg (1,000 unit) capsule 50 mcg PO DAILY atorvastatin 80 mg tablet 80 mg PO QHS carvedilol 25 mg tablet 25 mg PO BID clopidogrel 75 mg tablet 75 mg PO DAILY aspirin 81 mg tablet,delayed release (DR/EC) 81 mg PO DAILY pantoprazole 40 mg tablet,delayed release (DR/EC) 40 mg PO DAILY Mojgan-Kirk 0.8 mg tablet 1 tab PO DAILY nitroglycerin 0.4 mg tablet, sublingual 0.4 mg sublingual DAILY PRN (Reason: CHEST PAIN ) Rx Instructions: Dissolve 1 tablet under the tongue as needed for chest pain. polysaccharide iron complex [Ferrex 150] 150 mg iron Capsule 150 mg PO DAILY Qty: 60 0RF hydralazine 25 mg tablet 25 mg PO TID Qty: 90 0RF hydrocodone-acetaminophen 5-325 mg tablet 1 tab PO Q4H PRN PRN (Reason: Pain) 3 Days Qty: 10 0RF nifedipine 90 mg tablet extended release 24hr 90 mg PO BID sertraline 25 mg tablet 25 mg PO DAILY acetaminophen 325 mg capsule 650 mg PO BID PRN (Reason: PAIN ) albuterol sulfate [Ventolin HFA] 90 mcg/actuation HFA aerosol inhaler 1 puff inhalation Q4H PRN (Reason: WHEEZING ) oxycodone-acetaminophen [oxycodone-acetaminophen] 5-325 mg tablet 1 tab PO Q6H PRN PRN (Reason: Pain) 3 Days Qty: 12 0RF Primary Care Provider: Elvin Becerra Referrals: Elvin Becerra MD [Primary Care Provider] - Activity Restrictions/Additional Instructions: Blood pressure improved with your home regimen and restart of your nifedipine. Nifedipine refill sent to your pharmacy. Chest x-ray pleural effusion. You are stable on 2 L oxygen. Your potassium 3.0. COVID and flu negative. you are being discharged back to dialysis center to continue your dialysis today. Print Language: Indian Disposition Disposition: Home, Self Care Discharge Date/Time: 01/08/24 11:46
[2024-01-08 07:55] LABS: Absolute Lymphocyte Count 1.41 X10^3/uL (0.83-4.51); Absolute Neutrophil Count 14.1 X10^3/uL (2.0-7.7); Basophil# 0.07 X10^3/uL; Basophil% 0.4 % (0-1); Eosinophil# 0.12 X10^3/uL; Eosinophils% 0.7 % (0-5); Hematocrit 30.8 % (37-47); Hemoglobin 9.7 g/dL (12.0-15.0); Lymphocyte # 1.41 X10^3/ul (0.83-4.51); Lymphocyte % 8.3 % (19-41); Mean Corp Hgb Conc 31.5 g/dL (32-36); Mean Corpuscular Hgb 30.4 pg (27.0-32.0); Mean Corpuscular Volume 96.6 fL (81-99); Mean Platelet Vol. 9.7 fl (6.2-12.0); Monocyte# 1.19 X10^3/uL; NRBC Flagged by Analyzer 0 % (0-5); Neutrophil # 14.11 X10^3/uL (2.7-7.7); Platelet Count 206 K/mm3 (150-450); RBC Distribution Width CV 17.6 % (11.6-14.6); RBC Distribution Width SD 61.5 fl (35.1-43.9); Red Blood Count 3.19 M/mm3 (4.2-5.4)
[2024-01-08] MEDS: Carvedilol 25 MG Tablet PO (08:02)
[2024-01-08] MEDS: hydrALAZINE 50 MG Tablet 25 MG PO (08:02)
[2024-01-08 08:10] LABS: Anion Gap 10 (5-15); BUN 43 mg/dL (7-18); BUN/Creat Ratio 8.4 RATIO (10-20); Calcium,Total 9.1 mg/dL (8.5-10.1); Chloride 99 mmol/L (98-107); Creatinine, Serum 5.12 mg/dL (0.55-1.02); EST Glomerular Filtration Rate 9 mL/min (>60); Est Glom Filt Rate - Afr Amer 11 mL/min (>60); Estimated Creatinine Clearance 10.46 ml/min; Glucose 155 mg/dL (74-106); Sodium Level 136 mmol/L (136-145)
[2024-01-08] MEDS: NIFEdipine 90 MG Tablet PO (09:14)
== END 2024-01-08 11:46 | disposition home or self-care (01) ==
PROVIDERS: Emergency Provider Emergency Medicine; PCP Family Medicine; Visit Provider Emergency Medicine
DX: J90 Pleural effusion, not elsewhere classified (principal); I13.2 Hypertensive heart and chronic kidney disease with heart failure and with stage 5 chronic kidney disease, or end stage renal disease; N18.6 End stage renal disease; I50.9 Heart failure, unspecified; J44.9 Chronic obstructive pulmonary disease, unspecified; E11.22 Type 2 diabetes mellitus with diabetic chronic kidney disease; Z99.2 Dependence on renal dialysis; Z87.891 Personal history of nicotine dependence; R03.0 Elevated blood-pressure reading, without diagnosis of hypertension; Z99.81 Dependence on supplemental oxygen; I25.10 Atherosclerotic heart disease of native coronary artery without angina pectoris; I25.2 Old myocardial infarction; E78.00 Pure hypercholesterolemia, unspecified; Z79.82 Long term (current) use of aspirin; Z79.899 Other long term (current) drug therapy; Z79.02 Long term (current) use of antithrombotics/antiplatelets; F32.A Depression, unspecified; F41.9 Anxiety disorder, unspecified; Z90.49 Acquired absence of other specified parts of digestive tract; Z90.710 Acquired absence of both cervix and uterus; Z95.5 Presence of coronary angioplasty implant and graft; Z98.51 Tubal ligation status
CPT/HCPCS: 70450; 71046; 80048; 85025; 87631; 93005; 99283; A4216

== ENCOUNTER 2024-06-02 14:27 | Emergency (ER) | payer MEDICARE, MEDICAID, SELFPAY ==
[2024-06-02] VITALS (8 sets, daily range): BP systolic 107–156; BP diastolic 65–88; PULSE 56–58; RESP 16–24; TEMP 36.4–36.6; O2SAT 91–99; BMI 29.7
--- NOTE | 2024-06-02 14:45 | ED.RN ---
[facility] REC[facility] CONSULTANT bedside
--- NOTE | 2024-06-02 14:48 | EKG12_ITS ---
Test Reason : SOB Blood Pressure : / mmHG Vent. Rate : 055 BPM Atrial Rate : 055 BPM P-R Int : 190 ms QRS Dur : 096 ms QT Int : 480 ms P-R-T Axes : 039 090 -19 degrees QTc Int : 459 ms Sinus bradycardia Rightward axis Nonspecific ST and T wave abnormality Abnormal ECG Confirmed by Jason Birch ([id number]), newspaper copy editor DON JEFFREY ([id number]) on 06/04/2024 6:29:59 AM Referred By: Confirmed By:Jason Birch
[2024-06-02 15:08] LABS: Absolute Neutrophil Count 7.5 X10^3/uL (2.0-7.7); Basophil# 0.05 X10^3/uL; Basophil% 0.5 % (0-1); Eosinophils% 1.1 % (0-5); Hematocrit 32.6 % (37-47); Hemoglobin 10.1 g/dL (12.0-15.0); Lymphocyte % 9.7 % (19-41); Mean Corpuscular Hgb 32.2 pg (27.0-32.0); Mean Corpuscular Volume 103.8 fL (81-99); Mean Platelet Vol. 9.9 fl (6.2-12.0); Monocyte# 0.75 X10^3/uL; Monocyte% 8.1 % (0-10); NRBC Flagged by Analyzer 0 % (0-5); Neutrophil # 7.45 X10^3/uL (2.7-7.7); Neutrophil % 80.2 % (47-70); Platelet Count 141 K/mm3 (150-450); RBC Distribution Width CV 15.7 % (11.6-14.6); RBC Distribution Width SD 59.9 fl (35.1-43.9); Red Blood Count 3.14 M/mm3 (4.2-5.4); White Blood Count 9.3 K/mm3 (4.4-11.0)
[2024-06-02 15:25] LABS: ALB/GLOB Ratio 0.9 RATIO (0.9-2.4); AST(SGOT) 15 U/L (15-37); Alanine Aminotransfer ALT/SGPT 24 U/L (13-56); Albumin, Serum 3.4 g/dL (3.2-5.0); Alkaline Phosphatase 96 U/L (45-117); Anion Gap 10 (5-15); BUN 54 mg/dL (7-18); BUN/Creat Ratio 10.7 RATIO (10-20); Calcium,Total 9.4 mg/dL (8.5-10.1); Chloride 96 mmol/L (98-107); Creatinine, Serum 5.04 mg/dL (0.55-1.02); EST Glomerular Filtration Rate 9 mL/min (>60); Est Glom Filt Rate - Afr Amer 11 mL/min (>60); Estimated Creatinine Clearance 11.14 ml/min; Globulin 3.6 g/dL (2.2-4.2); Glucose 131 mg/dL (74-106); Potassium 4.7 mmol/L (3.5-5.1); Sodium Level 134 mmol/L (136-145)
--- NOTE | 2024-06-02 15:39 | EDS_ITS ---
<Statement entered by Wyatt Ward DO - 06/04/24 06:36> Patient was seen and examined with Nurse yousuf Cowart All components of the history and physical confirmed and agreed. History of present illness and physical exam: Patient is a 64-year-old female with past medical history of end-stage renal disease on dialysis Tuesdays, , and Saturdays. Patient states that she has not missed any recent dialysis treatments. Patient states that she does have a history of CHF, hypertension, lipidemia, GERD who presented to the emergency department with a chief complaint of worsening shortness of breath over the past 2 to 3 days now. States that she feels like she is holding onto fluid. She states that she is feels like she is not getting taken enough fluid off during her treatments. States that she has had to have thoracentesis in the past. Patient did state that she had a pericardial effusion in the past as well. Patient denies any recent sick contacts. Review of systems: Agree with above Physical exam: Agree with above MDM Patient is a 64-year-old female who presented to the emergency department with a chief complaint of dyspnea on exertion and concern for having too much fluid on her. Patient will have a workup performed here on the differential diagnose includes but not limited to CHF exacerbation, pneumonia, upper respiratory infection second viral etiology. Once workup is obtained reviewed she will be reevaluated. Patient CBC reviewed showed no evidence leukocytosis white blood count normal at 9.3, hemoglobin stable 10.1, platelet count was notably 141, sodium normal at 134, potassium normal at 4.7, creatinine was noted be 5.04 but she has end- stage renal disease on dialysis. AST and ALT were 1524 respectively. Patient's x-ray of her chest was reviewed and independently interpreted by myself as well as radiology which showed interstitial prominence mild cardiomegaly noted. Patient's troponin was noted to be 43 normal. Patient was ambulated here in the emergency department and her oxygen saturation stayed above 90%. She was able to walk and talk the entire time without any shortness of breath. Patient states that she does have dialysis tomorrow she was encouraged to go to dialysis. She was given 40 mg of IV Lasix prior to discharge. She is encouraged to follow-up with primary care physician outpatient setting. She is encouraged return with worsening symptoms or other concerns. All question concerns answered she is discharged home in stable condition. Final impression: Shortness of breath Disposition: Patient will be discharged home in stable condition Supervising attending attestation: Wyatt BARBER History of Present Illness Chief Complaint: Shortness of Breath Narrative Narrative: Patient is a 64-year-old female with history of end-stage renal disease and is on hemodialysis Tuesdays and Saturdays. Patient has not missed any recent dialysis treatments. Patient also with history of CHF, hypertension hyperlipidemia, GERD who presents to the [facility] apartment for 2 to 3 days of worsening shortness of breath. Patient states she feels like she is holding onto fluid. She believes that she is not getting enough taken off during her dialysis treatments. She does have history of pericardial effusion, and she is here for evaluation. Denies any specific chest pain, [place] any nausea or vomiting. [facility] Medical History (Updated 06/02/24 @ 17:23 by BRIT Nelson) Osteoporosis On home oxygen therapy AAA (abdominal aortic aneurysm) Bilateral pleural effusion Acute hypoxemic respiratory failure Substance abuse Diabetes Dialysis patient Sleep apnea Congestive heart failure (CHF) Myocardial infarct Coronary artery disease Migraines Asthma Kidney disease History of high cholesterol Anxiety Depression PTSD (post-traumatic stress disorder) Home Medications ?Medication ?Instructions ?Recorded ?Last Taken ?Type cholecalciferol (vitamin D3) 25 50 mcg PO DAILY SUPPLEMENT 10/02/21 08/07/23 History mcg (1,000 unit) capsule aspirin 81 mg tablet,delayed 81 mg PO DAILY HEART 11/14/22 08/07/23 History release atorvastatin 80 mg tablet 80 mg PO QHS CHOLESTEROL 11/14/22 08/06/23 History carvedilol 25 mg tablet 25 mg PO BID HEART 11/14/22 08/07/23 History clopidogrel 75 mg tablet 75 mg PO DAILY BLOOD THINNER 11/14/22 08/07/23 History nitroglycerin 0.4 mg sublingual 0.4 mg sublingual DAILY PRN CHEST 11/14/22 Unknown History tablet PAIN pantoprazole 40 mg tablet,delayed 40 mg PO DAILY ACID REFLUX 11/14/22 08/07/23 History release vitamin B complex-vitamin C-folic 1 tab PO DAILY SUPPLEMENT 11/14/22 08/07/23 History acid 0.8 mg tablet (Mojgan-Kirk) acetaminophen 325 mg capsule 650 mg PO BID PRN PAIN 08/07/23 08/06/23 History nifedipine 90 mg tablet,extended 90 mg PO BID BLOOD PRESSURE 08/07/23 08/07/23 History release 24 hr sertraline 25 mg tablet 25 mg PO DAILY DEPRESSION 08/07/23 08/07/23 History hydralazine 25 mg tablet 25 mg PO TID #90 tabs 09/22/23 Unknown Rx polysaccharide iron complex 150 mg 150 mg PO DAILY #60 caps 09/22/23 Unknown Rx iron capsule (Ferrex) hydrocodone-acetaminophen 5-325mg 1 tab PO Q4H PRN PRN Pain 3 days 09/30/23 Unknown Rx 5mg-325mg #10 TABLETS calcium acetate 667 mg tablet 667 mg PO TID 10/24/23 Unknown History oxycodone-acetaminophen 5 mg-325 1 tab PO Q6H PRN PRN Pain 3 days 11/22/23 Unknown Rx mg tablet #12 TABLETS nifedipine 90 mg tablet,extended 90 mg PO BID #60 tabs 01/08/24 Unknown Rx release carvedilol 12.5 mg tablet mg PO 06/02/24 Unknown History furosemide 80 mg tablet mg PO 06/02/24 Unknown History Allergy/AdvReac Type Severity Reaction Status Date / Time Latex, Natural Rubber Allergy Rash Verified 06/02/24 14:36 Penicillins Allergy Rash Verified 06/02/24 14:36 Family History (Reviewed 10/15/23 @ 13:31 by Mercedes Truong UNDERGROUND ELECTRICIAN, UNDERGROUND ELECTRICIAN-C) Other CAD (coronary artery disease) Heart disease Surgical History History of colectomy History of ligation of vein Hx of umbilical hernia repair History of arteriovenostomy for renal dialysis History of total hysterectomy History of coronary artery stent placement H/O tubal ligation History of section, classical Social History household members: none Smoking Status: Former smoker substance use type: does not use ROS ROS ED ROS Narrative Constitutional: Negative for fever, chills, weight loss, weakness Eyes: Negative for vision loss, vision change, double vision ENT: Negative for any sore throat, ear pain, congestion Cardiovascular: Negative for any chest pain, tightness, palpitations Respiratory: Negative for any cough, sputum production, hemoptysis, orthopnea. Positive dyspnea, dyspnea on exertion Gastrointestinal: Negative for any abdominal pain, nausea, vomiting, diarrhea, constipation, blood in stool, blood in vomit : Negative for any urinary frequency, dysuria, retention, blood in urine Muscle skeletal: Negative for any neck pain, back pain Neurological: Negative for any headache, syncope, dizziness Skin: Negative for any rashes, itching, abrasions, lacerations Psychiatric: Negative for any depression, anxiety, stress, suicidal ideation, homicidal ideation Hematologic: Negative for any excessive bruising, easy bleeding EXAM Physical Exam Narrative Exam Narrative: Vital signs reviewed. Patient speaking complete sentences, patient's vital signs are stable. HEET: Head normocephalic atraumatic, TMs clear bilaterally. Posterior pharynx is clear, moist mucous membranes. Nares clear bilaterally. Neck: Supple with no lymphadenopathy or tenderness. No signs of meningismus. Cardiac: Regular rate and rhythm no murmurs gallops or rubs, equal peripheral pulses bilaterally. Respiratory: Lungs clear to auscultation bilaterally. No chest tenderness. Abdomen: Soft, nontender, nondistended. No abdominal bruit or pulsatile masses. No hepatosplenomegaly Extremities: +2 pitting edema to bilateral lower extremities, left lateral leg does appear to be slightly ecchymosis secondary to injury. No signs of gross trauma or deformity. Active full range of motion of all extremities. Neuro: Cranial nerves II through XII intact, no focal neurological deficits. Skin: Clean dry and intact with no rash, purpura, petechiae, vesicles or pustules. Backs/flank: No CVA tenderness, no midline spinal tenderness, no deformity. Psych: Normal mood and affect. No SI, HI or acute psychosis. Const Vital Signs: 06/02/24 14:31 06/02/24 14:35 06/02/24 14:38 Temperature 97.8 F 97.8 F Temperature Source Oral Oral Pulse Rate 56 L 56 L Respiratory Rate 22 H 22 H Respiratory Effort Normal Short of Breath Labored Blood Pressure 131/81 H 131/81 H Blood Pressure Mean 97 97 Pulse Ox 99 98 Oxygen Delivery Method Room Air Room Air Room Air 06/02/24 15:35 Temperature 97.8 F Temperature Source Oral Pulse Rate 56 L Respiratory Rate 24 H Respiratory Effort Blood Pressure 119/65 Blood Pressure Mean 83 Pulse Ox 96 Oxygen Delivery Method Room Air Positive well nourished and well developed General Appearance ED: well developed MDM MDM Lab Data Labs: Laboratory Results - last 24 hr 06/02/24 14:53 WBC 9.3 RBC 3.14 L Hgb 10.1 L Hct 32.6 L MCV 103.8 H MCH 32.2 H MCHC 31.0 L RDW Std Deviation 59.9 H RDW Coeff of Lola 15.7 H Plt Count 141 L MPV 9.9 Immature Gran % (Auto) 0.400 Neut % (Auto) 80.2 H Lymph % (Auto) 9.7 L [place] % (Auto) 8.1 Eos % (Auto) 1.1 Baso % (Auto) 0.5 Absolute Neuts (auto) 7.5 Absolute Lymphs (auto) 0.90 Nucleated RBC % 0 Sodium 134 L Potassium 4.7 Chloride 96 L Carbon Dioxide 28.0 Anion Gap 10 BUN 54 H Creatinine 5.04 H Estim Creat Clear Calc 11.14 Est GFR (MDRD) Af Amer 11 L Est GFR (MDRD) Non-Af 9 L BUN/Creatinine Ratio 10.7 Glucose 131 H Calcium 9.4 Total Bilirubin 0.50 AST 15 ALT 24 Alkaline Phosphatase 96 Total Protein 7.0 Albumin 3.4 Globulin 3.6 Albumin/Globulin Ratio 0.9 Radiography Diagnostic Testing: Clinical Impression(s) from Imaging Studies Chest X-Ray 06/02/24 15:55 IMPRESSION: Interstitial prominence. Mild cardiomegaly. Electronically Signed: Eros Nance DO at 16:13 EDT Reading Location ID and State: [address] [place] [address] Tel [phone], Service support , Treatment and Re-Evaluation :: Differential diagnosis includes however is not limited to: Pleural effusion, ACS, VA, fluid overload, CHF, pericardial effusion Patient appears to be in no obvious distress vital signs are stable, nontoxic- appearing. Presenting to the emergency department for multiple days of worsening shortness of breath is intermittent. Secondary the patient's dialysis, she feels that she is fluid overloaded. Patient did receive x-ray of the chest 2 view, interpreted by ER physician, this does show interstitial prominence, mild cardiomegaly, patient's laboratory values show a chronic anemia with a hemoglobin 10.1, patient's chemistries show a creatinine of 5.0 however this is chronic for the patient and she does receive dialysis tomorrow. Patient's blood glucose 131 with a troponin that is -43. I did ambulate the patient around the department, patient did not drop below 91%, patient was speaking the entire time. At this time, I do believe the patient is stable for discharge, she will go to dialysis tomorrow, I will provide her with 40 mg of IV Lasix prior to discharge. She instructed follow-up outpatient. She is happy with the plan of care, instructed return for any worsening symptoms. Discharge Plan Triage Chief Complaint: Shortness of Breath ED Midlevel Provider: Supa Baumann ED Provider: Wyatt Ward Dx/Rx/DC Orders Clinical Impression: Chronic dyspnea, Renal failure, chronic Prescriptions: No Action calcium acetate 667 mg tablet 667 mg PO TID cholecalciferol (vitamin D3) 25 mcg (1,000 unit) capsule 50 mcg PO DAILY atorvastatin 80 mg tablet 80 mg PO QHS carvedilol 25 mg tablet 25 mg PO BID clopidogrel 75 mg tablet 75 mg PO DAILY aspirin 81 mg tablet,delayed release (DR/EC) 81 mg PO DAILY pantoprazole 40 mg tablet,delayed release (DR/EC) 40 mg PO DAILY Mojgan-Krik 0.8 mg tablet 1 tab PO DAILY nitroglycerin 0.4 mg tablet, sublingual 0.4 mg sublingual DAILY PRN (Reason: CHEST PAIN ) Rx Instructions: Dissolve 1 tablet under the tongue as needed for chest pain. polysaccharide iron complex [Ferrex 150] 150 mg iron Capsule 150 mg PO DAILY Qty: 60 0RF hydralazine 25 mg tablet 25 mg PO TID Qty: 90 0RF hydrocodone-acetaminophen 5-325 mg tablet 1 tab PO Q4H PRN PRN (Reason: Pain) 3 Days Qty: 10 0RF nifedipine 90 mg tablet extended release 24hr 90 mg PO BID sertraline 25 mg tablet 25 mg PO DAILY acetaminophen 325 mg capsule 650 mg PO BID PRN (Reason: PAIN ) carvedilol 12.5 mg tablet PO furosemide 80 mg tablet PO oxycodone-acetaminophen [oxycodone-acetaminophen] 5-325 mg tablet 1 tab PO Q6H PRN PRN (Reason: Pain) 3 Days Qty: 12 0RF nifedipine 90 mg tablet extended release 90 mg PO BID Qty: 60 0RF Primary Care Provider: Elvin Becerra Referrals: Elvin Becerra MD [Primary Care Provider] - Activity Restrictions/Additional Instructions: Please continue taking your Lasix, gave you 40 mg IV prior to discharge. Elevate your feet. Make sure you go to your dialysis tomorrow. Print Language: Serbian Disposition Disposition: Home, Self Care
--- NOTE | 2024-06-02 15:55 | RAD_ITS ---
INDICATION: SOB EXAMINATION/TECHNIQUE: X-RAY - XR Chest 2 Views COMPARISON: January 08, 2024 FINDINGS: LINES/DEVICES: None. LUNGS: No consolidation, edema or effusion. Interstitial prominence. No pneumothorax. MEDIASTINUM AND CARDIOVASCULAR STRUCTURES: Cardiac silhouette is slightly enlarged. Calcified aortic arch. Central airways and mediastinal contour are unremarkable. BONES AND SOFT TISSUES: Degenerative vertebral changes. RAD/Chest PA and Lateral IMPRESSION: Interstitial prominence. Mild cardiomegaly. Electronically Signed: Eros Nance DO at 16:13 EDT ,
[2024-06-02] MEDS: Ondansetron 4 MG/2 ML Vial IV (16:30)
[2024-06-02 17:11] LABS: Troponin-I HS 43 pg/mL (3.0-54.0)
[2024-06-02] MEDS: Furosemide 40 MG/4 ML Vial IV (17:35)
== END 2024-06-02 17:50 | disposition home or self-care (01) ==
PROVIDERS: Nurse Practitioner; Emergency Provider Emergency Medicine; PCP Family Medicine; Visit Provider Emergency Medicine
DX: R06.00 Dyspnea, unspecified (principal); I13.2 Hypertensive heart and chronic kidney disease with heart failure and with stage 5 chronic kidney disease, or end stage renal disease; N18.6 End stage renal disease; I50.9 Heart failure, unspecified; E11.22 Type 2 diabetes mellitus with diabetic chronic kidney disease; Z87.891 Personal history of nicotine dependence; I25.10 Atherosclerotic heart disease of native coronary artery without angina pectoris; E78.00 Pure hypercholesterolemia, unspecified; Z99.2 Dependence on renal dialysis; I25.2 Old myocardial infarction; Z79.82 Long term (current) use of aspirin; Z79.899 Other long term (current) drug therapy; Z79.02 Long term (current) use of antithrombotics/antiplatelets; F32.A Depression, unspecified; F41.9 Anxiety disorder, unspecified; Z90.49 Acquired absence of other specified parts of digestive tract; Z90.710 Acquired absence of both cervix and uterus; Z95.5 Presence of coronary angioplasty implant and graft; Z98.51 Tubal ligation status
CPT/HCPCS: 71046; 80053; 84484; 85025; 93005; 96374; 96375; 99283; J1940; J2405

== ENCOUNTER 2024-09-29 12:52 | Inpatient (IN) | payer MEDICARE, MEDICAID, SELFPAY ==
[2024-09-29] VITALS (8 sets, daily range): BP systolic 108–158; BP diastolic 44–99; PULSE 70–82; RESP 17–28; TEMP 36.6–37.2; O2SAT 95–99; BMI 28.3; BMI 28.1
--- NOTE | 2024-09-29 13:02 | EKG12_ITS ---
Test Reason : Blood Pressure : */* mmHG Vent. Rate : 85 BPM Atrial Rate : 85 BPM P-R Int : 196 ms QRS Dur : 100 ms QT Int : 396 ms P-R-T Axes : 41 48 53 degrees QTcB Int : 471 ms Normal sinus rhythm Incomplete right bundle branch block Nonspecific ST and T wave abnormality Abnormal ECG Confirmed by ISABELLA LENNON, ANDREA ([id number]), assistant film editor DON JEFFREY ([id number]) on 09/30/2024 8:55:28 AM Referred By: Raven Wylie Confirmed By: ANDREA MASON MD
--- NOTE | 2024-09-29 13:07 | ED.VIS.DYS ---
HPI <Dr. Torsten Velasquez MD - Last Filed: 09/30/24 09:17> History of Present Illness Chief Complaint: Shortness of Breath Detail of Chief Complaint: Shortness of breath and I need fluid taken off me Informant: patient Onset/Context/Timing Onset: Days Context: gradual Timing: Continuous and Waxes and wanes Quality: Positive for Dyspnea on exertion, Orthopnea and Wheezing; Negative for PND Current Severity: Moderate Maximum Severity: Severe Worsened by: Exertion and Lying flat Relieved by: Nothing Associated Symptoms cough; Negative for rhinorrhea, post nasal drip, ear pain, fever, sore throat, subjective, chills, sweats, clear sputum, white sputum, yellow sputum or green sputum Chest Pain: Positive for None Narrative Narrative: Patient is a 64-year-old woman. She is on hemodialysis. Fistula is right upper extremity. Patient states her left leg is chronically red and swollen due to veins that were removed for the fistula. She denies history of PE or DVT. She denies fever, chills night sweats. She sleeps in a hospital bed and it is at 60 to 75 degrees angulation. She denies chest discomfort of any type. She does have a slight cough. Cough is nonproductive. She does endorse wheezing. She believes she needs more fluid taken off and dialysis only removed 2 L on Sunday. She reports compliance with dialysis, medication and diet. Patient denies abdominal pain, nausea, vomiting or diarrhea. Patient denies constipation. Patient denies black or maroon-colored stool. PE Risk Factors: Positive for Recent immobilization; Negative for Cancer, OCP + Smoking + > 35, Prior DVT or PE, Recent surgery or Recent travel Prior similar symptoms: Yes (Fluid overload and COPD per old records) Recent Illness/Hospitalization: Yes (Most recent visit was May for chronic dyspnea. Prior to that she was s) [facility] <Dr. Torsten Velasquez MD - Last Filed: 09/30/24 09:17> [facility] Medical History Osteoporosis On home oxygen therapy AAA (abdominal aortic aneurysm) Bilateral pleural effusion Acute hypoxemic respiratory failure Substance abuse Diabetes Dialysis patient Sleep apnea Congestive heart failure (CHF) Myocardial infarct Coronary artery disease Migraines Asthma Kidney disease History of high cholesterol Anxiety Depression PTSD (post-traumatic stress disorder) Home Medications ?Medication ?Instructions ?Recorded ?Last Taken ?Type cholecalciferol (vitamin D3) 25 25 mcg PO DAILY SUPPLEMENT 10/02/21 09/28/24 History mcg (1,000 unit) capsule aspirin 81 mg tablet,delayed 81 mg PO DAILY HEART 11/14/22 09/28/24 History release atorvastatin 80 mg tablet 80 mg PO QHS CHOLESTEROL 11/14/22 09/28/24 History clopidogrel 75 mg tablet 75 mg PO DAILY BLOOD THINNER 11/14/22 09/28/24 History nitroglycerin 0.4 mg sublingual 0.4 mg sublingual DAILY PRN CHEST 11/14/22 Unknown History tablet PAIN pantoprazole 40 mg tablet,delayed 40 mg PO DAILY ACID REFLUX 11/14/22 09/28/24 History release vitamin B complex-vitamin C-folic 1 tab PO DAILY SUPPLEMENT 11/14/22 09/28/24 History acid 0.8 mg tablet (Mojgan-Kirk) acetaminophen 325 mg capsule 650 mg PO BID PRN PAIN 08/07/23 09/28/24 History sertraline 25 mg tablet 25 mg PO DAILY DEPRESSION 08/07/23 09/28/24 History calcium acetate 667 mg tablet 667 mg PO TID 10/24/23 09/28/24 History carvedilol 12.5 mg tablet 25 mg PO Q12H 06/02/24 09/28/24 History furosemide 80 mg tablet 80 mg PO Q12H 06/02/24 09/28/24 History albuterol sulfate 2.5 mg/3 mL 2.5 mg continuous nebulization Q6H 09/29/24 09/29/24 History (0.083 %) solution for nebulization PRN wheezing sulfamethoxazole 400 1 tab PO BID 09/29/24 09/28/24 History mg-trimethoprim 80 mg tablet Allergy/AdvReac Type Severity Reaction Status Date / Time Latex, Natural Rubber Allergy Rash Verified 06/02/24 14:36 Penicillins Allergy Rash Verified 06/02/24 14:36 Family History Other CAD (coronary artery disease) Heart disease Surgical History History of colectomy History of ligation of vein Hx of umbilical hernia repair History of arteriovenostomy for renal dialysis History of total hysterectomy History of coronary artery stent placement H/O tubal ligation History of section, classical Social History household members: none Smoking Status: Former smoker substance use type: does not use ROS <Dr. Torsten Velasquez MD - Last Filed: 09/30/24 09:17> ROS ED Constitutional Constitutional ED: Denies chills, fever(s), sweats or weight loss Eyes Eyes: Denies blurry vision ENT ENT ED: Denies ear pain, rhinorrhea or sore throat Cardiovascular Cardiovascular: Reports orthopnea, palpitations and racing heartbeat; Denies chest pain or paroxysmal nocturnal dyspnea Respiratory/Chest Respiratory/Chest: Reports cough, dyspnea, dyspnea on exertion and orthopnea; Denies paroxysmal nocturnal dyspnea or sputum Gastrointestinal Gastrointestinal: Denies abdominal pain, diarrhea, melena, nausea or vomiting Musculoskeletal Musculoskeletal: Denies arthralgias, back pain or myalgias Integumentary Reports rash Neurologic Neurologic: Denies headache(s) or paresthesias Psychiatric Psychiatric: Reports anxiety; Denies depression Endocrine Endocrinology: Denies cold intolerance or heat intolerance Hematologic/Lymphatic Hematologic/Lymphatic: Reports easy bruising EXAM <Dr. Torsten Velasquez MD - Last Filed: 09/30/24 09:17> Physical Exam Const Vital Signs: 09/29/24 12:55 09/29/24 13:25 09/29/24 13:50 Temperature 98 F Temperature Source Oral Pulse Rate 75 76 Respiratory Rate 21 H 21 H Respiratory Effort Short of Breath Blood Pressure 158/75 H Blood Pressure Mean 102 Pulse Ox 98 Oxygen Delivery Method Nasal Cannula Oxygen Flow Rate (L/min) 2 09/29/24 14:55 09/29/24 16:06 09/29/24 17:00 Temperature 98.2 F Temperature Source Pulse Rate 80 82 79 Respiratory Rate 19 H 17 22 H Respiratory Effort Blood Pressure 143/89 H 137/99 H 120/73 Blood Pressure Mean 107 111 88 Pulse Ox 97 97 95 Oxygen Delivery Method Oxygen Flow Rate (L/min) 09/29/24 18:00 Temperature Temperature Source Pulse Rate 77 Respiratory Rate 18 Respiratory Effort Blood Pressure 108/44 L Blood Pressure Mean 65 Pulse Ox 99 Oxygen Delivery Method Nasal Cannula Oxygen Flow Rate (L/min) 2 Patient is tachypneic, hypoxic and blood pressure is elevated. Patient appears in moderate distress then vitals would indicate. Positive well nourished and well developed General Appearance ED: well developed; Negative for NAD HEENT Reports moist mucous membranes HEENT Narrative: Head is atraumatic normocephalic. Ears normal. Nares patent. Posterior pharynx not erythematous. Uvula midline. No deviation with protrusion. Eyes PERRL and EOMs intact bilaterally General Eye ED: Negative for pale conjunctiva or scleral icterus Neck no lymphadenopathy, supple, no meningeal signs and no JVD Resp No normal respiratory effort and No clear to auscultation bilaterally Resp Narrative: There is decreased air movement with increased expiratory phase and high-pitched wheezing noted on expiration. Patient has bibasilar rales as well. Auscultation: wheezes expiratory wheezes and throughout Cardio regular rate, regular rhythm, S1 normal heart sound, S2 normal heart sound and no murmurs GI non-tender, non-distended and no masses Auscultation: normoactive bowel sounds Palpation: soft Back/Spine no CVA tenderness Extremity Negative for normal to inspection Extremity Narrative: Patient has edema swelling of left leg, which patient reports to be chronic. She has erythema and bruising noted of both legs. Neuro oriented x3 and CN's II-XII intact bilaterally [place] Coma Scale: document GCS findings Spontaneous Obeys Commands Oriented 15 Sensorium / Orientation: alert Skin Skin Narrative: Multiple bruises noted. Fistula right upper extremity. There is a thrill appreciated. <Dr. Wyatt Ward, DO - Last Filed: 09/29/24 17:57> Physical Exam Const Vital Signs: 09/29/24 12:55 09/29/24 13:25 09/29/24 13:50 Temperature 98 F Temperature Source Oral Pulse Rate 75 76 Respiratory Rate 21 H 21 H Respiratory Effort Short of Breath Blood Pressure 158/75 H Blood Pressure Mean 102 Pulse Ox 98 Oxygen Delivery Method Nasal Cannula Oxygen Flow Rate (L/min) 2 09/29/24 14:55 09/29/24 16:06 09/29/24 17:00 Temperature 98.2 F Temperature Source Pulse Rate 80 82 79 Respiratory Rate 19 H 17 22 H Respiratory Effort Blood Pressure 143/89 H 137/99 H 120/73 Blood Pressure Mean 107 111 88 Pulse Ox 97 97 95 Oxygen Delivery Method Oxygen Flow Rate (L/min) 02/03/25 18:00 Temperature Temperature Source Pulse Rate 77 Respiratory Rate 18 Respiratory Effort Blood Pressure 108/44 L Blood Pressure Mean 65 Pulse Ox 99 Oxygen Delivery Method Nasal Cannula Oxygen Flow Rate (L/min) 2 Neuro [place] Coma Scale: document GCS findings 15 MDM <Dr. Torsten Velasquez MD - Last Filed: 09/30/24 09:17> [facility] MDM Narrative Medical decision making narrative: Differential diagnosis includes COPD exacerbation, fluid overload, pneumonia. Prior records were reviewed. Will obtain EKG, chest x-ray and appropriate blood work to assess for worsening anemia since she appears pale, white count and differential to assess for infection. Chest x-ray to determine the patient has evidence of pneumonia, his fluid overload did and determine if she has pleural effusion (S). History & Record Review Additional record(s) reviewed:: Prior outpatient record (Record from outside facility for COPD exacerbation December 2023. Multiple images performed as outpatient in September.), Prior ED visit (ER visit authored by Dr. Ward June 02, 2024.) and Prior labs (Pelvic abscess.) Lab Data Attestation: I reviewed the patient's lab results. Lab results narrative: White count is normal. Patient has mild macrocytic anemia. Electrolyte panel Veals mild hyponatremia and mild hyperkalemia. CO2 and anion gap are normal. BUN and creatinine are 58 and 4.74 which is acceptable for someone on hemodialysis. Lactate is normal. Troponin is slightly elevated. Rapid antigen for COVID, RSV and influenza are all negative. Prior troponin was normal at 43. This could represent cardiac ischemia. Will order repeat troponin if not already ordered. Labs: Laboratory Results - last 24 hr 09/29/24 09/29/24 13:33 15:40 WBC 10.9 RBC 3.52 L Hgb 11.6 L Hct 36.9 L MCV 104.8 H MCH 33.0 H MCHC 31.4 L RDW Std Deviation 60.9 H RDW Coeff of Lola 16.2 H Plt Count TNP MPV 9.6 Immature Gran % (Auto) 0.500 Neut % (Auto) 78.9 H Lymph % (Auto) 8.6 L Wilkes % (Auto) 11.0 H Eos % (Auto) 0.4 Baso % (Auto) 0.6 Absolute Neuts (auto) 8.6 H Absolute Lymphs (auto) 0.94 Nucleated RBC % 0 Platelet Estimate ADEQUATE Sodium 131 L Potassium 5.6 H Chloride 94 L Carbon Dioxide 25.0 Anion Gap 12 BUN 58 H Creatinine 4.74 H Estim Creat Clear Calc 11.56 Est GFR (MDRD) Af Amer 12 L Est GFR (MDRD) Non-Af 10 L BUN/Creatinine Ratio 12.2 Glucose 113 H Lactic Acid 1.8 Calcium 9.6 Total Bilirubin 0.70 AST 24 ALT 27 Alkaline Phosphatase 92 Troponin I High Sens 75 H 68 H Total Protein 7.7 Albumin 3.4 Globulin 4.3 H Albumin/Globulin Ratio 0.8 L Radiography Chest X-Ray - ED: 1 View and Read by ED Physician (There is evidence of cardiomegaly. Lungs appear clear. There is no pleural effusion. There is no cephalization. Osseous structures are unremarkable.) Diagnostic Testing: Clinical Impression(s) from Imaging Studies Chest X-Ray 09/29/24 13:20 IMPRESSION: Cardiomegaly. The lungs are clear. Reading Location: [place] [id number] EKG Initial EKG: Attestation: I personally reviewed and interpreted this EKG as follows: Interpretation: Sinus Rhythm (Rate is 85. Patient has an RR prime in V1 and V2 suggestive of a incomplete right bundle branch block. RI interval is 196 ms. QRS duration 100 ms. QT durations are 96 ms. [place] is normal.) Treatment and Re-Evaluation :: Patient is presently receiving an aerosol treatment. On 5 L by mask she has a saturation of 88%. She will require admission. First troponin was elevated. Second was ordered. Disposition to be made after second troponin determine [facility]. The afternoon physician was made aware of patient. He will need to contact hospitalist once the second troponin has resulted. <Dr. Wyatt Ward, DO - Last Filed: 09/29/24 17:57> [facility] Narrative Medical decision making narrative: Differential diagnosis includes COPD exacerbation, fluid overload, pneumonia. Prior records were reviewed. Will obtain EKG, chest x-ray and appropriate blood work to assess for worsening anemia since she appears pale, white count and differential to assess for infection. Chest x-ray to determine the patient has evidence of pneumonia, his fluid overload did and determine if she has pleural effusion (S). Addendum Patient's case signed out to me to follow-up on delta troponin. Patient's delta troponin was reviewed and was noted to be 68 is downtrending. Will discuss case with hospitalist for admission. Patient's case was discussed with hospitalist for admission for COPD exacerbation, hypoxia. Patient notified is agreeable to plan all questions were answered. Lab Data Labs: Laboratory Results - last 24 hr 09/29/24 09/29/24 13:33 15:40 WBC 10.9 RBC 3.52 L Hgb 11.6 L Hct 36.9 L MCV 104.8 H MCH 33.0 H MCHC 31.4 L RDW Std Deviation 60.9 H RDW Coeff of Lola 16.2 H Plt Count TNP MPV 9.6 Immature Gran % (Auto) 0.500 Neut % (Auto) 78.9 H Lymph % (Auto) 8.6 L Wilkes % (Auto) 11.0 H Eos % (Auto) 0.4 Baso % (Auto) 0.6 Absolute Neuts (auto) 8.6 H Absolute Lymphs (auto) 0.94 Nucleated RBC % 0 Platelet Estimate ADEQUATE Sodium 131 L Potassium 5.6 H Chloride 94 L Carbon Dioxide 25.0 Anion Gap 12 BUN 58 H Creatinine 4.74 H Estim Creat Clear Calc 11.56 Est GFR (MDRD) Af Amer 12 L Est GFR (MDRD) Non-Af 10 L BUN/Creatinine Ratio 12.2 Glucose 113 H Lactic Acid 1.8 Calcium 9.6 Total Bilirubin 0.70 AST 24 ALT 27 Alkaline Phosphatase 92 Troponin I High Sens 75 H 68 H Total Protein 7.7 Albumin 3.4 Globulin 4.3 H Albumin/Globulin Ratio 0.8 L Radiography Diagnostic Testing: Clinical Impression(s) from Imaging Studies Chest X-Ray 09/29/24 13:20 IMPRESSION: Cardiomegaly. The lungs are clear. Reading Location: [facility] Discharge Plan Dx/Rx/DC Orders Clinical Impression: Acute dyspnea, HLD (hyperlipidemia), End-stage renal disease on hemodialysis, Anemia, HTN (hypertension), Acute bronchospasm, Acute and chronic respiratory failure with hypoxia, Elevated troponin I level Disposition Disposition: Acute Care Hospital [facility] Discharge Date/Time: 09/29/24 19:58
--- NOTE | 2024-09-29 13:20 | RAD_ITS ---
EXAM: CHEST 1 VIEW (PORTABLE) CLINICAL HISTORY: Shortness of breath and nausea. Renal dialysis this past Sunday. COMPARISON: Comparison is made with prior study dated June 02, 2024. TECHNIQUE: Portable chest radiograph was obtained. FINDINGS: EKG electrodes are seen. Moderate cardiomegaly. The lungs are clear. Mild blunting of the left costophrenic angle. Calcification of the aortic arch. Degenerative changes of the visualized dorsal spine. RAD/Chest 1 View (Portable) IMPRESSION: Cardiomegaly. The lungs are clear. Reading Location: [place] [address]
[2024-09-29] MEDS: Albuterol 2.5 MG/3 ML VIAL.NEB. INHALATION ×3 (13:23→13:24)
[2024-09-29] MEDS: Ipratropium/Albuterol Sulfate 3 ML AMPUL.NEB INHALATION (13:23)
[2024-09-29 13:53] LABS: Absolute Lymphocyte Count 0.94 X10^3/uL (0.83-4.51); Absolute Neutrophil Count 8.6 X10^3/uL (2.0-7.7); Basophil# 0.07 X10^3/uL; Basophil% 0.6 % (0-1); Eosinophil# 0.04 X10^3/uL; Eosinophils% 0.4 % (0-5); Hematocrit 36.9 % (37-47); Hemoglobin 11.6 g/dL (12.0-15.0); Lymphocyte # 0.94 X10^3/ul (0.83-4.51); Lymphocyte % 8.6 % (19-41); Mean Corp Hgb Conc 31.4 g/dL (32-36); Mean Corpuscular Volume 104.8 fL (81-99); Mean Platelet Vol. 9.6 fl (6.2-12.0); NRBC Flagged by Analyzer 0 % (0-5); Neutrophil # 8.57 X10^3/uL (2.7-7.7); Neutrophil % 78.9 % (47-70); POSITIVE COUNT YES; RBC Distribution Width CV 16.2 % (11.6-14.6); RBC Distribution Width SD 60.9 fl (35.1-43.9); Red Blood Count 3.52 M/mm3 (4.2-5.4); White Blood Count 10.9 K/mm3 (4.4-11.0)
[2024-09-29 14:19] LABS: ALB/GLOB Ratio 0.8 RATIO (0.9-2.4); AST(SGOT) 24 U/L (15-37); Alanine Aminotransfer ALT/SGPT 27 U/L (13-56); Albumin, Serum 3.4 g/dL (3.2-5.0); Alkaline Phosphatase 92 U/L (45-117); Anion Gap 12 (5-15); BUN 58 mg/dL (7-18); BUN/Creat Ratio 12.2 RATIO (10-20); Calcium,Total 9.6 mg/dL (8.5-10.1); Chloride 94 mmol/L (98-107); Creatinine, Serum 4.74 mg/dL (0.55-1.02); EST Glomerular Filtration Rate 10 mL/min (>60); Est Glom Filt Rate - Afr Amer 12 mL/min (>60); Estimated Creatinine Clearance 11.56 ml/min; Globulin 4.3 g/dL (2.2-4.2); Glucose 113 mg/dL (74-106); Potassium 5.6 mmol/L (3.5-5.1); Protein, Total 7.7 g/dL (6.4-8.2); Sodium Level 131 mmol/L (136-145); Troponin-I HS 75 pg/mL (3.0-54.0)
[2024-09-29 14:20] LABS: Lactic Acid 1.8 mmol/L (0.4-1.9)
[2024-09-29 14:28] LABS: Differential Indicated SCAN CRITERIA MET
[2024-09-29 14:29] LABS: Platelet Estimate ADEQUATE (ADEQ)
[2024-09-29 16:12] LABS: Troponin-I HS 68 pg/mL (3.0-54.0)
--- NOTE | 2024-09-29 19:09 | PCM.HP.STD ---
HPI - General General Date of Admission: 09/29/24 Date of Service: 09/29/24 Chief Complaint: SOB, leg swelling HPI Narrative BARI LAUGHLIN, is a 64 F with a history of end-stage renal disease on hemodialysis, GERD, depression, COPD w/ chronic hypoxic resp failure on 2 L home O2, coronary artery disease who presented [facility] ED ED with several days of increasing shortness of breath and nonproductive cough. In the ED chest x-ray with cardiomegaly but lungs otherwise clear, somewhat hypertensive but otherwise vitally stable, patient given a DuoNeb and did feel somewhat improved. There was a verbal report that at 1 point she dropped down to 88% I do not see where this was documented. Given patient's increased shortness of breath and feeling generally unwell hospitalist contacted for admission. Patient evaluated at bedside and reports increasing shortness of breath over the past several days and she thinks may be some fluid retention as she does have swelling in her legs that she does get this intermittently. Additionally has a cough which she thinks has been somewhat worse over the past couple days and has some chronic tingling in her legs. Also notes that bilateral lower extremities both are little bit more red since they have had increasing swelling. Also some nausea without abdominal pain or diarrhea. Denies fevers or chills or sick contact. Has had some decreased urine output over the past couple days as well [facility] Medical History Osteoporosis On home oxygen therapy AAA (abdominal aortic aneurysm) Bilateral pleural effusion Acute hypoxemic respiratory failure Substance abuse Diabetes Dialysis patient Sleep apnea Congestive heart failure (CHF) Myocardial infarct Coronary artery disease Migraines Asthma Kidney disease History of high cholesterol Anxiety Depression PTSD (post-traumatic stress disorder) Home Medications ?Medication ?Instructions ?Recorded ?Last Taken ?Type cholecalciferol (vitamin D3) 25 25 mcg PO DAILY SUPPLEMENT 10/02/21 09/28/24 History mcg (1,000 unit) capsule aspirin 81 mg tablet,delayed 81 mg PO DAILY HEART 11/14/22 09/28/24 History release atorvastatin 80 mg tablet 80 mg PO QHS CHOLESTEROL 11/14/22 09/28/24 History clopidogrel 75 mg tablet 75 mg PO DAILY BLOOD THINNER 11/14/22 09/28/24 History nitroglycerin 0.4 mg sublingual 0.4 mg sublingual DAILY PRN CHEST 11/14/22 Unknown History tablet PAIN pantoprazole 40 mg tablet,delayed 40 mg PO DAILY ACID REFLUX 11/14/22 09/28/24 History release vitamin B complex-vitamin C-folic 1 tab PO DAILY SUPPLEMENT 11/14/22 09/28/24 History acid 0.8 mg tablet (Mojgan-Kirk) acetaminophen 325 mg capsule 650 mg PO BID PRN PAIN 08/07/23 09/28/24 History sertraline 25 mg tablet 25 mg PO DAILY DEPRESSION 08/07/23 09/28/24 History calcium acetate 667 mg tablet 667 mg PO TID 10/24/23 09/28/24 History carvedilol 12.5 mg tablet 25 mg PO Q12H 06/02/24 09/28/24 History furosemide 80 mg tablet 80 mg PO Q12H 06/02/24 09/28/24 History albuterol sulfate 2.5 mg/3 mL 2.5 mg continuous nebulization Q6H 09/29/24 09/29/24 History (0.083 %) solution for nebulization PRN wheezing sulfamethoxazole 400 1 tab PO BID 09/29/24 09/28/24 History mg-trimethoprim 80 mg tablet Allergy/AdvReac Type Severity Reaction Status Date / Time Latex, Natural Rubber Allergy Rash Verified 06/02/24 14:36 Penicillins Allergy Rash Verified 06/02/24 14:36 Family History Other CAD (coronary artery disease) Heart disease Surgical History History of colectomy History of ligation of vein Hx of umbilical hernia repair History of arteriovenostomy for renal dialysis History of total hysterectomy History of coronary artery stent placement H/O tubal ligation History of section, classical Social History household members: none Smoking Status: Former smoker substance use type: does not use ROS ROS Narrative General: Denies fever/chills HENT: Did not endorse sore throat EYES: Denies changes in vision Resp: Does have cough possibly worse over the past several days with worsening shortness of breath over several days Cardiac: Denies chest pain GI: Denies abdominal pain, denies changes in bowel, has had some nausea : Possibly some decreased urination Extremity: Increased swelling in lower extremities intermittently been worse over the past couple of days MSK: Denies weakness Neuro: Has some chronic tingling in her legs Heme: Denies any bleeding or bruising Skin: Reports some increased redness in bilateral lower extremities along with the swelling Psychiatric: No complaints voiced Vital Signs Vital Signs Vital Signs: 09/29/24 12:55 09/29/24 13:25 09/29/24 13:50 Temperature 98 F Temperature Source Oral Pulse Rate 75 76 Respiratory Rate 21 H 21 H Respiratory Effort Short of Breath Blood Pressure 158/75 H Blood Pressure Mean 102 Pulse Ox 98 Oxygen Delivery Method Nasal Cannula Oxygen Flow Rate (L/min) 2 09/29/24 14:55 09/29/24 16:06 09/29/24 17:00 Temperature 98.2 F Temperature Source Pulse Rate 80 82 79 Respiratory Rate 19 H 17 22 H Respiratory Effort Blood Pressure 143/89 H 137/99 H 120/73 Blood Pressure Mean 107 111 88 Pulse Ox 97 97 95 Oxygen Delivery Method Oxygen Flow Rate (L/min) 09/29/24 18:00 Temperature Temperature Source Pulse Rate 77 Respiratory Rate 18 Respiratory Effort Blood Pressure 108/44 L Blood Pressure Mean 65 Pulse Ox 99 Oxygen Delivery Method Nasal Cannula Oxygen Flow Rate (L/min) 2 Weight Weight: 74.752 kg Body Mass Index (BMI) 28.3 Physical Exam Narrative General: Resting comfortably but does wake up and answer questions HEENT: Atraumatic, normocephalic Eyes: Anicteric, normal conjunctiva, extraocular movements grossly intact Neck: Supple Respiratory: Diffuse wheezing Cardiovascular: Regular rate GI: Soft, nontender, nondistended Extremities: 1-2+ bilateral lower extremity edema Musculoskeletal: Moving all extremities Neuro: No overt focal neurological deficits Skin: Does have some redness on bilateral lower extremities Psych: Cooperative Results Lab / Micro Data 09/29/24 13:33 09/29/24 13:33 Labs: Laboratory Results - last 24 hr 09/29/24 13:33: WBC 10.9, RBC 3.52 L, Hgb 11.6 L, Hct 36.9 L, MCV 104.8 H, MCH 33.0 H, MCHC 31.4 L, RDW Std Deviation 60.9 H, RDW Coeff of Lola 16.2 H, Plt Count TNP, MPV 9.6, Immature Gran % (Auto) 0.500, Neut % (Auto) 78.9 H, Lymph % (Auto) 8.6 L, [place] % (Auto) 11.0 H, Eos % (Auto) 0.4, Baso % (Auto) 0.6, Absolute Neuts (auto) 8.6 H, Absolute Lymphs (auto) 0.94, Nucleated RBC % 0, Platelet Estimate ADEQUATE, Sodium 131 L, Potassium 5.6 H, Chloride 94 L, Carbon Dioxide 25.0, Anion Gap 12, BUN 58 H, Creatinine 4.74 H, Estim Creat Clear Calc 11.56, Est GFR (MDRD) Af Amer 12 L, Est GFR (MDRD) Non-Af 10 L, BUN/Creatinine Ratio 12.2, Glucose 113 H, Lactic Acid 1.8, Calcium 9.6, Total Bilirubin 0.70, AST 24, ALT 27, Alkaline Phosphatase 92, Troponin I High Sens 75 H, Total Protein 7.7, Albumin 3.4, Globulin 4.3 H, Albumin/Globulin Ratio 0.8 L 09/29/24 15:40: Troponin I High Sens 68 H Micro: Microbiology 09/29/24 13:33 Mucosa - Nose SARS-CoV-2, Influenza & RSV (PCR) - Final Imaging Radiology Impression Chest X-Ray 09/29/24 13:20 IMPRESSION: Cardiomegaly. The lungs are clear. Reading Location: [facility] Assessment & Plan Assessment/Plan (1) COPD exacerbation: PLAN: Plan # Increased shortness of breath on chronic hypoxic respiratory failure on home O2 secondary to COPD exacerbation -Admit to floor, continuous O2 monitoring -Chest x-ray: Without discrete infiltrate COVID negative, obtain respiratory panel, sputum culture if able -O2 in place, presently saturating well on 2 L home O2 -IV methylprednisone -Scheduled DuoNebs -Albuterol prn -Incentive spirometer -Mucinex #Hyperkalemia -Mild -Changing patient's diuretics to IV -Renal diet -Will give Kayexalate -Will need to clarify with patient on Bactrim when able as this may be contributing to her hyperkalemia -EKG reviewed #Elevated Trop -Patient with initial troponin of 75 which down trended to 68 -May be secondary to her hypoxia in the setting of end-stage renal disease as it was verbally reported she did drop down to 88% at some point -Patient has no cardiac related complaints #ESRD on HD -Consult nephrology -Renal diet -Daily weights, I's and O's #Depression/anxiety -Continue home medications #Hx CAD -Continue aspirin, statin, BB #GERD -Continue PPI #DVT ppx: Heparin subcu Raven Wylie MD Charges/Coding Visit Charges Inpatient E&M: 53993 Init Hosp L2
[2024-09-29] MEDS: Sodium Polystyrene Sulfonate 15 GM/60 ML UDC 30 GM PO (23:18)
[2024-09-29] MEDS: Heparin Injection (Vial) 5,000 UNIT/ML VIAL 5000 UNIT SC (23:19)
[2024-09-29] MEDS: Furosemide 100 MG/10 ML Vial 80 MG IV (23:19)
[2024-09-29] MEDS: Carvedilol 25 MG Tablet PO (23:19)
[2024-09-29] MEDS: guaiFENesin 1,200 MG Tablet 1200 MG PO (23:20)
[2024-09-29] MEDS: Atorvastatin Calcium 80 MG Tablet PO (23:20)
[2024-09-30] VITALS (16 sets, daily range): BP systolic 142–254; BP diastolic 80–147; PULSE 68–94; RESP 14–24; TEMP 36.1–36.9; O2SAT 96–97; BMI 27.8; BMI 26.7
[2024-09-30] MEDS: Acetaminophen 325 MG Tablet 650 MG PO (00:08)
[2024-09-30] MEDS: MELATONIN 3 MG TABLET PO ×2 (00:08→20:03)
[2024-09-30] MEDS: Heparin Injection (Vial) 5,000 UNIT/ML VIAL 5000 UNIT SC ×3 (05:09→20:03)
[2024-09-30] MEDS: 0.9% Saline Lock 10 ML Syringe IV ×3 (05:09→20:03)
[2024-09-30] MEDS: Ipratropium/Albuterol Sulfate 3 ML AMPUL.NEB INHALATION ×3 (05:29→20:50)
[2024-09-30 07:28] LABS: Absolute Lymphocyte Count 0.45 X10^3/uL (0.83-4.51); Absolute Neutrophil Count 7.2 X10^3/uL (2.0-7.7); Basophil# 0.05 X10^3/uL; Basophil% 0.6 % (0-1); Hematocrit 39.9 % (37-47); Hemoglobin 11.4 g/dL (12.0-15.0); Lymphocyte # 0.45 X10^3/ul (0.83-4.51); Lymphocyte % 5.6 % (19-41); Mean Corp Hgb Conc 28.6 g/dL (32-36); Mean Corpuscular Hgb 33.1 pg (27.0-32.0); Mean Platelet Vol. 9.6 fl (6.2-12.0); Monocyte# 0.24 X10^3/uL; NRBC Flagged by Analyzer 0 % (0-5); Neutrophil # 7.22 X10^3/uL (2.7-7.7); Neutrophil % 90.2 % (47-70); POSITIVE DIFFERENTIAL YES; POSITIVE MORPHOLOGY YES; Platelet Count 163 K/mm3 (150-450); RBC Distribution Width CV 16.5 % (11.6-14.6); RBC Distribution Width SD 70.3 fl (35.1-43.9); Red Blood Count 3.44 M/mm3 (4.2-5.4)
[2024-09-30 07:29] LABS: Differential Indicated SCAN CRITERIA MET
[2024-09-30] MEDS: Furosemide 100 MG/10 ML Vial 80 MG IV (08:10)
[2024-09-30] MEDS: Pantoprazole Sodium 40 MG Tablet PO (08:11)
[2024-09-30] MEDS: Smz/Tmp Ds Tablet 0.5 TABLET PO ×2 (08:11→17:59)
[2024-09-30] MEDS: Carvedilol 25 MG Tablet PO ×2 (08:11→20:02)
[2024-09-30] MEDS: Folic Acid/Vitamin B Comp W-C 1 Capsule 1 CAP PO (08:11)
[2024-09-30] MEDS: guaiFENesin 1,200 MG Tablet 1200 MG PO ×2 (08:11→20:02)
[2024-09-30] MEDS: Clopidogrel Bisulfate 75 MG Tablet PO (08:11)
[2024-09-30] MEDS: Aspirin E.C. 81 MG Tablet PO (08:11)
[2024-09-30] MEDS: Sertraline 50 MG Tablet 25 MG PO (08:12)
[2024-09-30] MEDS: Calcium Acetate 667 MG Capsule PO ×3 (08:12→17:59)
[2024-09-30] MEDS: Cholecalciferol (VIT D3) 25 MCG TABLET (1,000 UNITS) PO (08:12)
[2024-09-30 08:46] LABS: Acanthocytes RARE; Anisocytosis 3+; Differential Comment SCANNED; Macrocytosis 3+; Platelet Estimate ADEQUATE (ADEQ); Polychromasia 1+
[2024-09-30 08:47] LABS: Schistocytes RARE; Target Cells 1+
--- NOTE | 2024-09-30 09:59 | CASEMGMT ---
SW spoke with patient as she triggered SDOH for transportation. Patient stated she does utilize [facility] for transportation to dialysis. Patient does not like to use her insurance for transport as they are unreliable. Patient has a vehicle, but it needs work done on it and she does not have the money to pay for it. SW provided patient with information on [employer] transportation assistance and car repair assistance. Naty Lei [employer]
[2024-09-30 10:56] LABS: Anion Gap 15 (5-15); BUN 65 mg/dL (7-18); BUN/Creat Ratio 12.1 RATIO (10-20); Calcium,Total 8.8 mg/dL (8.5-10.1); Chloride 93 mmol/L (98-107); Creatinine, Serum 5.36 mg/dL (0.55-1.02); EST Glomerular Filtration Rate 9 mL/min (>60); Est Glom Filt Rate - Afr Amer 10 mL/min (>60); Estimated Creatinine Clearance 10.18 ml/min; Glucose 151 mg/dL (74-106); Magnesium 2.1 mg/dL (1.6-2.6); Potassium 4.9 mmol/L (3.5-5.1); Sodium Level 131 mmol/L (136-145)
--- NOTE | 2024-09-30 11:00 | CASEMGMT ---
JOHAN HAYES Face to Face with patient for initial transition planning/care coordination assessment. JOHAN HAYES introduced self and role at [facility]. Patient lying in bed, alert and oriented. Patient willing to participate in assessment and is able to answer all questions appropriately. Care providers, pharmacy, and demographics verified. Strata: 3 PCP: [facility] Specialists: Jacoby Rosenthal, auto winder; Cindy, branch logistics supervisor; Vascular at [facility] Preferred Pharmacy: [email or web address] Pres[facility] Benefit: yes Living Will/HPOA: none LNOK: aunt Living Arrangements: Patient lives in a first floor apartment with 3 steps and railing to enter the home. Patient states she is independent. Transportation: [employer], insurance. Patient states she cancelled her last appts as she could not get a ride. DME/HHC: Patient has shower chair, BSC, cane, rollator, nebulizer, and home oxygen through [employer]. Patient has been to [facility] in the past. Patient has CM Lili through Waiver program. JOHAN HAYES inquired if patient has looked into the waiver asssited living. Patient states she doesn't know anything about that. RN FREDDY updated SW. Patient states she is tired and does not want to discuss discharge needs at this time. JOHAN HAYES informed patient the CM will follow-up with patient later. Patient states he has no further needs or concerns at this time. CM to follow for discharge planning needs that may arise. Disposition Plan: TBD, anticipate HHC at discharge. CM will continue to monitor and plan for a safe discharge. Swathi JENSEN, RN, CM
--- NOTE | 2024-09-30 11:18 | CASEMGMT ---
Per RN CM patient was open to assisted living waiver referral. SW made a referral via [facility]'s website. Naty PHAM
--- NOTE | 2024-09-30 13:25 | PN_ITS ---
Subjective Subjective Patient seen and examined. She has no active complaints. She was drowsy but would wake up to communicate. She denied any cough, chest pain, palpitations, dizziness, nausea, vomiting or any other symptoms. Review of systems is otherwise negative. Objective Data Objective Data Vital Signs: Vital Signs Temp Pulse Resp BP Pulse Ox O2 Del Method O2 Flow Rate 97.8 F 91 17 163/88 H 97 Nasal Cannula 2 09/30/24 08:00 09/30/24 08:00 09/30/24 08:00 09/30/24 08:00 09/30/24 08:43 09/30/24 09:58 09/30/24 09:58 Oxygen Flow Rate (L/min) 2 Oxygen Delivery Method Nasal Cannula Weight: 163 lb 5.8 oz Body Mass Index (BMI) 27.8 Intake & Output: Intake and Output for Last 24 Hours 09/28/24 09/29/24 09/30/24 23:59 23:59 23:59 Intake Total 740 / 740 Balance 740 / 740 Lab / Micro Data 09/30/24 06:15 09/30/24 06:15 Labs: Laboratory Results - last 24 hr 09/29/24 13:33: WBC 10.9, RBC 3.52 L, Hgb 11.6 L, Hct 36.9 L, MCV 104.8 H, MCH 33.0 H, MCHC 31.4 L, RDW Std Deviation 60.9 H, RDW Coeff of Lola 16.2 H, Plt Count TNP, MPV 9.6, Immature Gran % (Auto) 0.500, Neut % (Auto) 78.9 H, Lymph % (Auto) 8.6 L, [place] % (Auto) 11.0 H, Eos % (Auto) 0.4, Baso % (Auto) 0.6, A bsolute Neuts (auto) 8.6 H, Absolute Lymphs (auto) 0.94, Nucleated RBC % 0, Platelet Estimate ADEQUATE, Sodium 131 L, Potassium 5.6 H, Chloride 94 L, Carbon Dioxide 25.0, Anion Gap 12, BUN 58 H, Creatinine 4.74 H, Estim Creat Clear Calc 11.56, Est GFR (MDRD) Af Amer 12 L, Est GFR (MDRD) Non-Af 10 L, BUN/Creatinine Ratio 12.2, Glucose 113 H, Lactic Acid 1.8, Calcium 9.6, Total Bilirubin 0.70, AST 24, ALT 27, Alkaline Phosphatase 92, Troponin I High Sens 75 H, Total Protein 7.7, Albumin 3.4, Globulin 4.3 H, Albumin/Globulin Ratio 0.8 L 09/29/24 15:40: Troponin I High Sens 68 H 09/30/24 06:15: WBC 8.0, RBC 3.44 L, Hgb 11.4 L, Hct 39.9, MCV 116.0 H D, MCH 33.1 H, MCHC 28.6 L D, RDW Std Deviation 70.3 H, RDW Coeff of Lola 16.5 H, Plt Count 163, MPV 9.6, Immature Gran % (Auto) 0.600, Neut % (Auto) 90.2 H, Lymph % (Auto) 5.6 L, [place] % (Auto) 3.0, Eos % (Auto) 0.0, Baso % (Auto) 0.6, Absolute Neuts (auto) 7.2, Absolute Lymphs (auto) 0.45 L, Nucleated RBC % 0, Differential Comment SCANNED, Platelet Estimate ADEQUATE, Polychromasia 1+, Anisocytosis 3+, Macrocytosis 3+, Target Cells 1+, Acanthocytes (Spur) RARE, Schistocytes RARE, S odium 131 L, Potassium 4.9, Chloride 93 L, Carbon Dioxide 23.0, Anion Gap 15, B UN 65 H, Creatinine 5.36 H, Estim Creat Clear Calc 10.18, Est GFR (MDRD) Af Amer 10 L, Est GFR (MDRD) Non-Af 9 L, BUN/Creatinine Ratio 12.1, Glucose 151 H, Calcium 8.8, Magnesium 2.1 Micro: Microbiology 09/30/24 00:18 Sputum, Expectorated/Coughed Gram Stain - Final 09/29/24 23:15 Mucosa - Nasopharyngeal Respiratory Panel (PCR) - Final 09/29/24 13:33 Mucosa - Nose SARS-CoV-2, Influenza & RSV (PCR) - Final Radiography Diagnostic Testing: Radiology Impression Chest X-Ray 09/29/24 13:20 IMPRESSION: Cardiomegaly. The lungs are clear. Reading Location: [id number] Physical Exam Const alert and oriented x3 Orientation / Consciousness: lethargic HEENT normocephalic, head/scalp atraumatic, moist oral mucous membranes and oropharynx normal Eyes PERRL and EOMs intact bilaterally Neck no lymphadenopathy and supple Lymph Lymphatic: no lymphadenopathy noted and no lymphedema noted Resp Resp Narrative: diminished breath sounds bibasally, no wheezes or crackles. On 2L of oxygen by nasal canula Cardio regular rate, regular rhythm, S1 normal heart sound, S2 normal heart sound and no murmurs GI normal to inspection, nondistended, normoactive bowel sounds, soft to palpation, non-tender and non-distended Extremity normal capillary refill, no clubbing, cyanosis or edema and no calf tenderness General Extremity: no tenderness to palpation of joints or extremities Skin General Skin Exam: no breakdown Neuro CN's II-XII intact bilaterally, no focal motor deficits and no sensory deficits noted Motor Exam: strength 5/5 throughout and general weakness Psych thought process normal, cooperative and affect normal Appearance: appropriate Assessment & Plan Assessment/Plan (1) COPD exacerbation: PLAN: Plan #Hypoxia due to acute COPD exacerbation * On 2 L of oxygen which is her baseline. Admitted with a complaint of shortness of breath and wheezing. * On IV Solu-Medrol. Breathing treatments bronchodilators. * Titrate oxygen to maintain saturation above 90%. * #ESRD on hemodialysis: Nephrology consulted. Management as per nephrology. On Lasix 80 mg twice daily. Will switch to p.o. Lasix. #Hyperkalemia: He was given Kayexalate. There were no acute EKG changes. Will monitor. Resolved. Potassium is 4.9. #Elevated troponins * Initial troponin was 75 but subsequently trended downwards. Likely due to decreased clearance from her ESRD as well as demand ischemia from hypoxia. She did not have * She did not have any chest pain. I will monitor. #Depression and anxiety: On sertraline #History of CAD: S/p aspirin and statin as well as carvedilol #GERD: PPI DVT prophylaxis: Heparin Charges/Coding Visit Charges Inpatient E&M: 88277 Subs Hosp L2
--- NOTE | 2024-09-30 13:29 | CON.PCM.RE_ITS ---
Assessment & Plan Assessment/Plan (1) ESRD (end stage renal disease): PLAN: On hemodialysis Sunday, , Sunday schedule. Will arrange for dialysis today. 3 hours. 2 L as tolerated fluid removal. HPI Consult Data Date of Consult: 09/30/24 HPI Narrative Reason for Consultation: ESRD HPI Narrative: BARI LAUGHLIN, is a 64 F who presents to hospital with Shortness of breath. Nephrology on consultation in view of ESRD. On hemodialysis Sunday, , Sunday. Last dialysis was Sunday, uneventful. Presented with shortness of breath, dry nonproductive cough. Chest x-ray is relatively clear. [facility] Medical History Osteoporosis On home oxygen therapy AAA (abdominal aortic aneurysm) Bilateral pleural effusion Acute hypoxemic respiratory failure Substance abuse Diabetes Dialysis patient Sleep apnea Congestive heart failure (CHF) Myocardial infarct Coronary artery disease Migraines Asthma Kidney disease History of high cholesterol Anxiety Depression PTSD (post-traumatic stress disorder) Home Medications ?Medication ?Instructions ?Recorded ?Last Taken ?Type cholecalciferol (vitamin D3) 25 25 mcg PO DAILY SUPPLE MENT 10/02/21 09/28/24 History mcg (1,000 unit) capsule aspirin 81 mg tablet,delayed 81 mg PO DAILY HEART 10/2609/28/24 History release atorvastatin 80 mg tablet 80 mg PO QHS CHOLESTEROL 09/28/24 History clopidogrel 75 mg tablet 75 mg PO DAILY BLOOD THINNER 11/14/22 09/28/24 History nitroglycerin 0.4 mg sublingual 0.4 mg sublingual ELLEN Y PRN CHEST 11/14/22 Unknown History tablet PAIN pantoprazole 40 mg tablet,delayed 40 mg PO DAILY ACID REFLUX 11/14/22 09/28/24 History release vitamin B complex-vitamin C-folic 1 tab PO DAILY SUPPL EMENT 11/14/22 09/28/24 History acid 0.8 mg tablet (Mojgan-Kirk) acetaminophen 325 mg capsule 650 mg PO BID PRN PAIN 09/28/24 History sertraline 25 mg tablet 25 mg PO DAILY DEPRESSION 09/28/24 History calcium acetate 667 mg tablet 667 mg PO TID 10/24/23 0 09/28/24 History carvedilol 12.5 mg tablet 25 mg PO Q12H 06/02/2409/28 History furosemide 80 mg tablet 80 mg PO Q12H 06/02/2409/28 History albuterol sulfate 2.5 mg/3 mL 2.5 mg continuous nebuli zation Q6H 09/29/24 09/29/24 History (0.083 %) solution for nebulization PRN wheezing sulfamethoxazole 400 1 tab PO BID 09/29/24 History mg-trimethoprim 80 mg tablet Allergy/AdvReac Type Severity Reaction Status Date / Time Latex, Natural Rubber Allergy Rash Verified 06/02/24 14:36 Penicillins Allergy Rash Verified 06/02/24 14:36 Family History (Reviewed 10/15/23 @ 13:31 by Mercedes Truong INTELLIGENCE CONSULTANT, INTELLIGENCE CONSULTANT-C) Other CAD (coronary artery disease) Heart disease Surgical History History of colectomy History of ligation of vein Hx of umbilical hernia repair History of arteriovenostomy for renal dialysis History of total hysterectomy History of coronary artery stent placement H/O tubal ligation History of section, classical Social History household members: none Smoking Status: Former smoker substance use type: does not use ROS ROS Narrative Negative except above Physical Exam Narrative Alert awake oriented x 3 no obvious distress no pallor no icterus no JVD s1s2 no murmurs lungs clear abdomen soft no organomegaly no edema no cyanosis Lab / Micro Data 09/30/24 06:15 09/30/24 06:15 Labs: Laboratory Results - last 24 hr 09/29/24 13:33: WBC 10.9, RBC 3.52 L, Hgb 11.6 L, Hct 36.9 L, MCV 104.8 H, MCH 33.0 H, MCHC 31.4 L, RDW Std Deviation 60.9 H, RDW Coeff of Lola 16.2 H, Plt Count TNP, MPV 9.6, Immature Gran % (Auto) 0.500, Neut % (Auto) 78.9 H, Lymph % (Auto) 8.6 L, [place] % (Auto) 11.0 H, Eos % (Auto) 0.4, Baso % (Auto) 0.6, A bsolute Neuts (auto) 8.6 H, Absolute Lymphs (auto) 0.94, Nucleated RBC % 0, Platelet Estimate ADEQUATE, Sodium 131 L, Potassium 5.6 H, Chloride 94 L, Carbon Dioxide 25.0, Anion Gap 12, BUN 58 H, Creatinine 4.74 H, Estim Creat Clear Calc 11.56, Est GFR (MDRD) Af Amer 12 L, Est GFR (MDRD) Non-Af 10 L, BUN/Creatinine Ratio 12.2, Glucose 113 H, Lactic Acid 1.8, Calcium 9.6, Total Bilirubin 0.70, AST 24, ALT 27, Alkaline Phosphatase 92, Troponin I High Sens 75 H, Total Protein 7.7, Albumin 3.4, Globulin 4.3 H, Albumin/Globulin Ratio 0.8 L 09/29/24 15:40: Troponin I High Sens 68 H 09/30/24 06:15: WBC 8.0, RBC 3.44 L, Hgb 11.4 L, Hct 39.9, MCV 116.0 H D, MCH 33.1 H, MCHC 28.6 L D, RDW Std Deviation 70.3 H, RDW Coeff of Lola 16.5 H, Plt Count 163, MPV 9.6, Immature Gran % (Auto) 0.600, Neut % (Auto) 90.2 H, Lymph % (Auto) 5.6 L, [place] % (Auto) 3.0, Eos % (Auto) 0.0, Baso % (Auto) 0.6, Absolute Neuts (auto) 7.2, Absolute Lymphs (auto) 0.45 L, Nucleated RBC % 0, Differential Comment SCANNED, Platelet Estimate ADEQUATE, Polychromasia 1+, Anisocytosis 3+, Macrocytosis 3+, Target Cells 1+, Acanthocytes (Spur) RARE, Schistocytes RARE, S odium 131 L, Potassium 4.9, Chloride 93 L, Carbon Dioxide 23.0, Anion Gap 15, B UN 65 H, Creatinine 5.36 H, Estim Creat Clear Calc 10.18, Est GFR (MDRD) Af Amer 10 L, Est GFR (MDRD) Non-Af 9 L, BUN/Creatinine Ratio 12.1, Glucose 151 H, Calcium 8.8, Magnesium 2.1 Micro: Microbiology 09/30/24 00:18 Sputum, Expectorated/Coughed Gram Stain - Final 09/29/24 23:15 Mucosa - Nasopharyngeal Respiratory Panel (PCR) - Final 09/29/24 13:33 Mucosa - Nose SARS-CoV-2, Influenza & RSV (PCR) - Final Imaging Radiology Impression Chest X-Ray 09/29/24 13:20 IMPRESSION: Cardiomegaly. The lungs are clear. Reading Location: [facility]
[2024-09-30] MEDS: 0.9% Normal Saline 1,000 ML IV.SOLN. 1000 ML OPERA.SITE (16:52)
[2024-09-30] MEDS: PureFlow B 2K Dialysis Soln 1 BAG 6 BAG PF (16:52)
[2024-09-30] MEDS: Furosemide 80 MG Tablet PO (17:59)
[2024-09-30] MEDS: Atorvastatin Calcium 80 MG Tablet PO (20:03)
[2024-10-01] VITALS (8 sets, daily range): BP systolic 117–145; BP diastolic 73–81; PULSE 78–91; RESP 18–20; TEMP 36.2–36.6; O2SAT 93–99; BMI 27.3
[2024-10-01] MEDS: Furosemide 80 MG Tablet PO ×2 (01:11→12:55)
[2024-10-01] MEDS: Heparin Injection (Vial) 5,000 UNIT/ML VIAL 5000 UNIT SC ×3 (05:20→19:46)
[2024-10-01] MEDS: 0.9% Saline Lock 10 ML Syringe IV ×2 (05:21→14:50)
[2024-10-01 06:46] LABS: Absolute Lymphocyte Count 0.49 X10^3/uL (0.83-4.51); Absolute Neutrophil Count 5.4 X10^3/uL (2.0-7.7); Basophil# 0.01 X10^3/uL; Basophil% 0.2 % (0-1); Hematocrit 32.1 % (37-47); Hemoglobin 10.2 g/dL (12.0-15.0); Lymphocyte # 0.49 X10^3/ul (0.83-4.51); Lymphocyte % 7.9 % (19-41); Mean Corp Hgb Conc 31.8 g/dL (32-36); Mean Corpuscular Hgb 33.3 pg (27.0-32.0); Mean Corpuscular Volume 104.9 fL (81-99); Mean Platelet Vol. 9.8 fl (6.2-12.0); Monocyte# 0.29 X10^3/uL; Monocyte% 4.7 % (0-10); NRBC Flagged by Analyzer 0 % (0-5); Neutrophil # 5.36 X10^3/uL (2.7-7.7); Neutrophil % 86.7 % (47-70); POSITIVE DIFFERENTIAL YES; Platelet Count 153 K/mm3 (150-450); RBC Distribution Width SD 61.5 fl (35.1-43.9); Red Blood Count 3.06 M/mm3 (4.2-5.4); White Blood Count 6.2 K/mm3 (4.4-11.0)
[2024-10-01] MEDS: Ipratropium/Albuterol Sulfate 3 ML AMPUL.NEB INHALATION ×3 (07:09→20:07)
[2024-10-01 07:10] LABS: Anion Gap 14 (5-15); BUN 52 mg/dL (7-18); Calcium,Total 9.4 mg/dL (8.5-10.1); Chloride 93 mmol/L (98-107); Creatinine, Serum 4.34 mg/dL (0.55-1.02); EST Glomerular Filtration Rate 11 mL/min (>60); Est Glom Filt Rate - Afr Amer 13 mL/min (>60); Estimated Creatinine Clearance 12.46 ml/min; Glucose 158 mg/dL (74-106); Potassium 4.4 mmol/L (3.5-5.1); Sodium Level 130 mmol/L (136-145)
[2024-10-01] MEDS: Carvedilol 25 MG Tablet PO ×2 (09:20→19:46)
[2024-10-01] MEDS: guaiFENesin 1,200 MG Tablet 1200 MG PO ×2 (09:20→19:46)
[2024-10-01] MEDS: Aspirin E.C. 81 MG Tablet PO (09:20)
[2024-10-01] MEDS: Calcium Acetate 667 MG Capsule PO ×3 (09:20→17:43)
[2024-10-01] MEDS: Sertraline 50 MG Tablet 25 MG PO (09:21)
[2024-10-01] MEDS: Folic Acid/Vitamin B Comp W-C 1 Capsule 1 CAP PO (09:21)
[2024-10-01] MEDS: Smz/Tmp Ds Tablet 0.5 TABLET PO ×2 (09:21→17:43)
[2024-10-01] MEDS: Clopidogrel Bisulfate 75 MG Tablet PO (09:21)
[2024-10-01] MEDS: Cholecalciferol (VIT D3) 25 MCG TABLET (1,000 UNITS) PO (09:21)
[2024-10-01] MEDS: Pantoprazole Sodium 40 MG Tablet PO (09:21)
--- NOTE | 2024-10-01 10:50 | PN_ITS ---
Subjective Subjective Patient seen and examined. She complained of feeling tired and wanted to go back to bed. She denied any shortness of breath, cough, chest pain, fever, chills or any other symptoms. Review of systems is otherwise negative. She is on 2L of oxygen. She feels her breathing has improved a bit. Objective Data Objective Data Vital Signs: Vital Signs Temp Pulse Resp BP Pulse Ox O2 Del Method O2 Flow Rate 97.9 F 83 18 129/79 H 97 Nasal Cannula 2 10/01/24 09:17 10/01/24 09:17 10/01/24 09:17 10/01/24 09:17 10/01/24 09:17 10/01/24 09:17 10/01/24 09:17 Oxygen Flow Rate (L/min) 2 Oxygen Delivery Method Nasal Cannula Weight: 160 lb 4.417 oz Body Mass Index (BMI) 27.3 Intake & Output: Intake and Output for Last 24 Hours 09/29/24 09/30/24 10/01/24 23:59 23:59 23:59 Intake Total 860 / 860 Output Total 6080 / 6080 Balance -5220 / -5220 Lab / Micro Data 10/01/24 06:06 10/01/24 06:06 Labs: Laboratory Results - last 24 hr 09/30/24 06:15: Sodium 131 L, Potassium 4.9, Chloride 93 L, Carbon Dioxide 23.0, Anion Gap 15, BUN 65 H, Creatinine 5.36 H, Estim Creat Clear Calc 10.18, Est GFR (MDRD) Af Amer 10 L, Est GFR (MDRD) Non-Af 9 L, BUN/Creatinine Ratio 12.1, G lucose 151 H, Calcium 8.8, Magnesium 2.1 10/01/24 06:06: WBC 6.2, RBC 3.06 L, Hgb 10.2 L, Hct 32.1 L, MCV 104.9 H D, MCH 33.3 H, MCHC 31.8 L D, RDW Std Deviation 61.5 H, RDW Coeff of Olla 16.0 H, Plt Count 153, MPV 9.8, Immature Gran % (Auto) 0.500, Neut % (Auto) 86.7 H, Lymph % (Auto) 7.9 L, [place] % (Auto) 4.7, Eos % (Auto) 0.0, Baso % (Auto) 0.2, Absolute Neuts (auto) 5.4, Absolute Lymphs (auto) 0.49 L, Nucleated RBC % 0, Sodium 130 L , Potassium 4.4, Chloride 93 L, Carbon Dioxide 23.0, Anion Gap 14, BUN 52 H, C reatinine 4.34 H, Estim Creat Clear Calc 12.46, Est GFR (MDRD) Af Amer 13 L, Est GFR (MDRD) Non-Af 11 L, BUN/Creatinine Ratio 12.0, Glucose 158 H, Calcium 9.4 Micro: Microbiology 09/30/24 00:18 Sputum, Expectorated/Coughed Gram Stain - Final 09/29/24 23:15 Mucosa - Nasopharyngeal Respiratory Panel (PCR) - Final 09/29/24 13:33 Mucosa - Nose SARS-CoV-2, Influenza & RSV (PCR) - Final Physical Exam Const alert and oriented x3 General Appearance: cooperative HEENT normocephalic, head/scalp atraumatic, moist oral mucous membranes and oropharynx normal Eyes PERRL and EOMs intact bilaterally Neck no lymphadenopathy and supple Lymph Lymphatic: no lymphadenopathy noted and no lymphedema noted Resp Resp Narrative: diminished breath sounds bibasally, no wheezes or crackles. On 2L of oxygen by nasal canula Cardio regular rate, regular rhythm, S1 normal heart sound, S2 normal heart sound and no murmurs GI normal to inspection, nondistended, normoactive bowel sounds, soft to palpation, non-tender and non-distended Extremity normal capillary refill, no clubbing, cyanosis or edema and no calf tenderness General Extremity: no tenderness to palpation of joints or extremities Skin General Skin Exam: no breakdown Neuro CN's II-XII intact bilaterally, no focal motor deficits and no sensory deficits noted Motor Exam: strength 5/5 throughout and general weakness Psych thought process normal, cooperative and affect normal Appearance: appropriate Assessment & Plan Assessment/Plan (1) COPD exacerbation: PLAN: Plan #Hypoxia due to acute COPD exacerbation * remains on 2 L of oxygen which is her baseline. Admitted with a complaint of shortness of breath and wheezing. * On IV Solu-Medrol. Breathing treatments bronchodilators. * Titrate oxygen to maintain saturation above 90%. * #ESRD on hemodialysis: Nephrology on board. Management as per nephrology. On PO Lasix 80 mg twice daily. #Hyponatremia: Sodium is 130. # Chronic hyponatremia. Will monitor. #Hyperkalemia: resolved. #Elevated troponins * Initial troponin was 75 but subsequently trended downwards. Likely due to decreased clearance from her ESRD as well as demand ischemia from hypoxia. * She did not have any chest pain. * will get 2D echo. Her last echo was in August 2023 which showed EF of 55% moderate concentric left ventricular hypertrophy with no regional motion abnormalities noted. #Depression and anxiety: On sertraline #History of CAD: S/p aspirin and statin as well as carvedilol #GERD: PPI DVT prophylaxis: Heparin Disposition: anticipate dc by tomorrow Charges/Coding Visit Charges Inpatient E&M: 04754 Subs Hosp L2
--- NOTE | 2024-10-01 10:57 | ECHOD_ITS ---
Reason For Study: SHORTNESS OF BREATH Procedure This was a 2D Doppler, Color Flow transthoracic echocardiogram. Exam performed portable in patient room. Left Ventricle Normal LV size. Mild concentric left ventricular hypertrophy. The left ventricular ejection fraction is 30 %. There is moderate global hypokinesis of the left ventricle. Right Ventricle Normal RV size. Normal systolic function. Atria Normal left atrium. Normal right atrium. Hypermobile atrial septum. Mitral Valve There is moderate to severe mitral annular calcification. Mild (1+) eccentric mitral valve insufficiency. Tricuspid Valve Normal tricuspid valve. Mild to moderate (1-2+) tricuspid valve insufficiency. Pulmonary artery systolic pressure is 30 mmHg. Aortic Valve Trisinus/trileaflet aortic valve. Mild focal aortic valve calcification. Pulmonic Valve Normal pulmonic valve. Great Vessels Normal aortic root. The pulmonary artery is normal size. The inferior vena cava is dilated. No collapse of the inferior vena cava. Pericardium/Pleural No pericardial effusion. MMode/2D Measurements & Calculations LVIDd: 5.4 cm IVSd: 1.3 cm LVOT diam: 2.0 cm LVIDs: 4.3 cm LVPWd: 1.2 cm LVOT area: 3.2 cm2 RVDd: 4.6 cm FS: 19.6 % _ asc Aorta Diam: 3.3 cm LAV(MOD-bp): 80.2 ml LVAd ap4: 33.3 cm2 LAV(MOD-bp) Indexed: 45.1 ml/m2 LVLd ap4: 8.5 cm LAV(MOD-sp2): 91.7 ml EDV(MOD- sp4): 106.8 ml LAV(MOD-sp4): 66.2 ml EDV(sp4- el): 110.3 ml LVAs ap4: 26.4 cm2 LVLs ap4: 7.7 cm ESV(MOD- sp4): 74.7 ml ESV(sp4- el): 76.5 ml EF(MOD- sp4): 30.1 % EF(sp4- el): 30.6 % _ LVAd ap2: 35.6 cm2 SV(MOD-sp4): 32.1 ml SV(MOD- sp2): 40.0 ml LVLd ap2: 8.8 cm SI(MOD-sp4): 18.1 ml/m2 SI(MOD- sp2): 22.5 ml/m2 EDV(MOD-sp2): 119.1 ml EDV(sp2-el): 121.6 ml LVAs ap2: 27.4 cm2 LVLs ap2: 7.8 cm ESV(MOD-sp2): 79.1 ml ESV(sp2-el): 82.0 ml EF(MOD-sp2): 33.6 % _ SV(sp4-el): 33.8 ml Ao sinus diam: 3.[address] Junction: 2.3 cm _ LA dimension(2D): 4.4 cm LA A4 area: 22.1 cm2 RA A4 area: 19.9 cm2 _ TAPSE: 1.3 cm Time Measurements MV dec time: 0.15 sec Doppler Measurements & Calculations MV E max edgardo: 121.9 cm/sec Lat Peak E' Edgardo: 7.5 cm/sec Med Peak E' Edgardo: 4.1 cm/sec MV A max edgardo: 91.3 cm/sec E/E' lat: 16.3 E/E' med: 29.9 MV E/A: 1.3 _ MV dec slope: 819.5 cm/sec2 Ao V2 max: 147.8 cm/sec LV V1 max: 87.9 cm/sec Ao max P.7 mmHg LV V1 max P.1 mmHg Ao V2 mean: 93.8 cm/sec LV V1 mean P.5 mmHg Ao mean P.0 mmHg LV V1 mean: 57.2 cm/sec Ao V2 VTI: 26.0 cm LV V1 VTI: 17.0 cm AV (velocity ratio): 0.65 GRISEL(I,D): 2.1 cm2 GRISEL(V,D): 1.9 cm2 _ SV(LVOT): 53.8 ml PA V2 max: 66.7 cm/sec TR max edgardo: 254.8 cm/sec TR max P.0 mmHg ECHO/Echo Complete Interpretation Summary Hypermobile atrial septum. The left ventricular ejection fraction is 30 %. Normal LV size. Mild concentric left ventricular hypertrophy. Mild (1+) eccentric mitral valve insufficiency. Mild to moderate (1-2+) tricuspid valve insufficiency. Compared to previous study, the left ventricular systolic function has worsened .. Ordering Physician: Ana Luisa Rosa Referring Physician: Raven Wylie Performed By: Yuridia Fiore RDCS
--- NOTE | 2024-10-01 16:16 | PN.RENAL_ITS ---
Subjective Subjective no new events Objective Data Objective Data Vital Signs: Vital Signs Temp Pulse Resp BP Pulse Ox O2 Del Method O2 Flow Rate 97.5 F L 78 18 117/73 96 Nasal Cannula 2 10/01/24 14:59 10/01/24 14:59 10/01/24 14:59 10/01/24 14:59 10/01/24 14:59 10/01/24 15:19 10/01/24 15:19 Oxygen Flow Rate (L/min) 2 Oxygen Delivery Method Nasal Cannula Weight: 72.7 kg Body Mass Index (BMI) 27.3 Intake & Output: Intake and Output for Last 24 Hours 09/29/24 09/30/24 10/01/24 23:59 23:59 23:59 Intake Total 860 / 860 Output Total 6080 / 6080 Balance -5220 / -5220 Lab / Micro Data 10/01/24 06:06 10/01/24 06:06 Labs: Laboratory Results - last 24 hr 10/01/24 06:06: WBC 6.2, RBC 3.06 L, Hgb 10.2 L, Hct 32.1 L, MCV 104.9 H D, MCH 33.3 H, MCHC 31.8 L D, RDW Std Deviation 61.5 H, RDW Coeff of Lola 16.0 H, Plt Count 153, MPV 9.8, Immature Gran % (Auto) 0.500, Neut % (Auto) 86.7 H, Lymph % (Auto) 7.9 L, [place] % (Auto) 4.7, Eos % (Auto) 0.0, Baso % (Auto) 0.2, Absolute Neuts (auto) 5.4, Absolute Lymphs (auto) 0.49 L, Nucleated RBC % 0, Sodium 130 L , Potassium 4.4, Chloride 93 L, Carbon Dioxide 23.0, Anion Gap 14, BUN 52 H, C reatinine 4.34 H, Estim Creat Clear Calc 12.46, Est GFR (MDRD) Af Amer 13 L, Est GFR (MDRD) Non-Af 11 L, BUN/Creatinine Ratio 12.0, Glucose 158 H, Calcium 9.4 Micro: Microbiology 09/30/24 00:18 Sputum, Expectorated/Coughed Gram Stain - Final 09/29/24 23:15 Mucosa - Nasopharyngeal Respiratory Panel (PCR) - Final 09/29/24 13:33 Mucosa - Nose SARS-CoV-2, Influenza & RSV (PCR) - Final Physical Exam Narrative Alert awake oriented x 3 no obvious distress no pallor no icterus no JVD s1s2 no murmurs lungs clear abdomen soft no organomegaly no edema no cyanosis Assessment & Plan Assessment/Plan (1) ESRD (end stage renal disease): PLAN: On hemodialysis Sunday, , Sunday schedule.
[2024-10-01] MEDS: Atorvastatin Calcium 80 MG Tablet PO (19:46)
[2024-10-01] MEDS: MELATONIN 3 MG TABLET PO (23:56)
[2024-10-02] VITALS (17 sets, daily range): BP systolic 94–203; BP diastolic 61–89; PULSE 60–82; RESP 16–20; TEMP 36–36.9; O2SAT 95–100; BMI 28.3; BMI 27.1
[2024-10-02] MEDS: Albuterol 2.5 MG/3 ML VIAL.NEB. INHALATION ×2 (00:26→23:25)
[2024-10-02] MEDS: Furosemide 80 MG Tablet PO ×2 (00:45→14:23)
[2024-10-02] MEDS: 0.9% Saline Lock 10 ML Syringe IV ×4 (04:13→22:32)
[2024-10-02] MEDS: Acetaminophen 325 MG Tablet 650 MG PO (04:13)
[2024-10-02] MEDS: Heparin Injection (Vial) 5,000 UNIT/ML VIAL 5000 UNIT SC ×3 (04:13→22:32)
[2024-10-02] MEDS: Ipratropium/Albuterol Sulfate 3 ML AMPUL.NEB INHALATION ×3 (06:56→20:01)
[2024-10-02 07:45] LABS: Absolute Lymphocyte Count 0.33 X10^3/uL (0.83-4.51); Hematocrit 32.2 % (37-47); Hemoglobin 10.4 g/dL (12.0-15.0); Lymphocyte # 0.33 X10^3/ul (0.83-4.51); Lymphocyte % 4.9 % (19-41); Mean Corp Hgb Conc 32.3 g/dL (32-36); Mean Corpuscular Hgb 33.1 pg (27.0-32.0); Mean Corpuscular Volume 102.5 fL (81-99); Mean Platelet Vol. 9.8 fl (6.2-12.0); Monocyte% 4.5 % (0-10); NRBC Flagged by Analyzer 0.4 % (0-5); Neutrophil # 6.02 X10^3/uL (2.7-7.7); Neutrophil % 89.9 % (47-70); Platelet Count 150 K/mm3 (150-450); RBC Distribution Width CV 15.7 % (11.6-14.6); RBC Distribution Width SD 57.2 fl (35.1-43.9); Red Blood Count 3.14 M/mm3 (4.2-5.4); White Blood Count 6.7 K/mm3 (4.4-11.0)
[2024-10-02 07:51] LABS: Anion Gap 17 (5-15); BUN 81 mg/dL (7-18); BUN/Creat Ratio 14.3 RATIO (10-20); Calcium,Total 9.1 mg/dL (8.5-10.1); Chloride 91 mmol/L (98-107); Creatinine, Serum 5.67 mg/dL (0.55-1.02); EST Glomerular Filtration Rate 8 mL/min (>60); Est Glom Filt Rate - Afr Amer 10 mL/min (>60); Estimated Creatinine Clearance 9.69 ml/min; Glucose 166 mg/dL (74-106); Potassium 5.4 mmol/L (3.5-5.1); Sodium Level 128 mmol/L (136-145)
[2024-10-02] MEDS: 0.9% Normal Saline 1,000 ML IV.SOLN. 1000 ML OPERA.SITE (08:17)
[2024-10-02] MEDS: Heparin 10,000 UNITS/10 ML Vial 2000 UNITS IV (08:17)
[2024-10-02] MEDS: PureFlow B 2K Dialysis Soln 1 BAG 6 BAG PF (08:17)
--- NOTE | 2024-10-02 09:23 | CT_ITS ---
EXAM: CT Abdomen and Pelvis Without Intravenous Contrast CLINICAL INDICATION: TECHNIQUE: Axial computed tomography images of the abdomen and pelvis without intravenous contrast. This CT exam was performed using one or more of the following dose reduction techniques: automated exposure control, adjustment of the mA and/or kV according to patient size, and/or use of iterative reconstruction technique. COMPARISON: CT Abdomen Pelvis dated 12/24/2023 FINDINGS: LUNG BASES: Unremarkable. No mass. No consolidation. MEDIASTINUM: Punctate calcification in the distal esophagus. ABDOMEN: LIVER: Unremarkable. GALLBLADDER AND BILE DUCTS: Unremarkable. No calcified stones. No ductal dilation. PANCREAS: Unremarkable. No ductal dilation. SPLEEN: Unremarkable. No splenomegaly. ADRENALS: Re-demonstration of the hypodense lesion of the right adrenal gland measuring up to 3.5 cm with punctate calcification, likely an adenoma. KIDNEYS AND URETERS: Bilateral renal pelvic calculi, largest measuring up to 3 mm without obstruction. 1.8 cm right renal cyst. STOMACH AND BOWEL: Fecal retention in the colon consistent with constipation. No obstruction. No mucosal thickening. PELVIS: APPENDIX: No findings to suggest acute appendicitis. BLADDER: Unremarkable. No stones. REPRODUCTIVE: Unremarkable as visualized. ABDOMEN and PELVIS: INTRAPERITONEAL SPACE: Unremarkable. No free air. No significant fluid collection. BONES/JOINTS: No acute fracture. No dislocation. SOFT TISSUES: Unremarkable. VASCULATURE: Scattered calcified atherosclerotic disease of aorta. Calcified atherosclerotic disease of the infrarenal aorta measuring up to 3.7 cm. No abdominal aortic aneurysm. LYMPH NODES: Unremarkable. No enlarged lymph nodes. CT/Abdomen/Pelvis without Cont IMPRESSION: 1. Re-demonstration of the hypodense lesion of the right adrenal gland measuri ng up to 3.5 cm with punctate calcification, likely an adenoma. 2. Calcified atherosclerotic disease of the infrarenal aorta measuring up to 3 .7 cm. 3. Fecal retention in the colon consistent with constipation. 4. Bilateral renal pelvic calculi, largest measuring up to 3 mm without obstru ction. Reading Location[facility]
[2024-10-02] MEDS: Smz/Tmp Ds Tablet 0.5 TABLET PO ×2 (12:04→18:28)
[2024-10-02] MEDS: Calcium Acetate 667 MG Capsule PO ×3 (12:05→18:29)
[2024-10-02] MEDS: Carvedilol 25 MG Tablet PO ×2 (12:05→22:32)
[2024-10-02] MEDS: Aspirin E.C. 81 MG Tablet PO (12:05)
[2024-10-02] MEDS: Pantoprazole Sodium 40 MG Tablet PO (12:06)
[2024-10-02] MEDS: Cholecalciferol (VIT D3) 25 MCG TABLET (1,000 UNITS) PO (12:06)
[2024-10-02] MEDS: Folic Acid/Vitamin B Comp W-C 1 Capsule 1 CAP PO (12:06)
[2024-10-02] MEDS: Clopidogrel Bisulfate 75 MG Tablet PO (12:06)
[2024-10-02] MEDS: Sertraline 50 MG Tablet 25 MG PO (12:06)
[2024-10-02] MEDS: guaiFENesin 1,200 MG Tablet 1200 MG PO ×2 (12:06→22:32)
--- NOTE | 2024-10-02 13:44 | PN_ITS ---
Subjective Subjective Patient seen and examined. She complained of abdominal pain. I had hoped to discharge patient today but patient says she is in severe abdominal pain so cannot go. She was getting dialysis at time of review. She denies any nausea or vomiting. Review of systems otherwise negative. She remains on her baseline 2 L of oxygen. Objective Data Objective Data Vital Signs: Vital Signs Temp Pulse Resp BP Pulse Ox O2 Del Method O2 Flow Rate 97.5 F L 82 16 147/89 H 100 Nasal Cannula 2 10/02/24 11:59 10/02/24 11:59 10/02/24 11:59 10/02/24 11:59 10/02/24 11:59 10/02/24 11:59 10/02/24 11:59 Oxygen Flow Rate (L/min) 2 Oxygen Delivery Method Nasal Cannula Weight: 159 lb 2.78 oz Body Mass Index (BMI) 27.1 Intake & Output: Intake and Output for Last 24 Hours 09/30/24 10/01/24 10/02/24 23:59 23:59 23:59 Intake Total 860 / 860 Output Total 6080 / 6080 2520 / 2520 Balance -5220 / -5220 -2520 / -2520 Lab / Micro Data 10/02/24 06:42 10/02/24 06:42 Labs: Laboratory Results - last 24 hr 10/02/24 06:42: WBC 6.7, RBC 3.14 L, Hgb 10.4 L, Hct 32.2 L, MCV 102.5 H, MCH 33.1 H, MCHC 32.3, RDW Std Deviation 57.2 H, RDW Coeff of Lola 15.7 H, Plt Count 150, MPV 9.8, Immature Gran % (Auto) 0.700, Neut % (Auto) 89.9 H, Lymph % (Auto) 4.9 L, [place] % (Auto) 4.5, Eos % (Auto) 0.0, Baso % (Auto) 0.0, Absolute Neuts (auto) 6.0, Absolute Lymphs (auto) 0.33 L, Nucleated RBC % 0.4, Sodium 128 L, P otassium 5.4 H, Chloride 91 L, Carbon Dioxide 20.0 L, Anion Gap 17 H, BUN 81 H, Creatinine 5.67 H, Estim Creat Clear Calc 9.69, Est GFR (MDRD) Af Amer 10 L, Est GFR (MDRD) Non-Af 8 L, BUN/Creatinine Ratio 14.3, Glucose 166 H, Calcium 9.1 Micro: Microbiology 09/30/24 00:18 Sputum, Expectorated/Coughed Gram Stain - Final 09/30/24 00:18 Sputum, Expectorated/Coughed Respiratory Culture - Final Mixed normal respiratory tarsha. No Streptococcus pneumoniae, beta-hemolytic Streptococcus or Staphylococcus aureus isolated. 09/29/24 23:15 Mucosa - Nasopharyngeal Respiratory Panel (PCR) - Final 09/29/24 13:33 Mucosa - Nose SARS-CoV-2, Influenza & RSV (PCR) - Final Radiography Diagnostic Testing: Radiology Impression Echocardiogram 10/01/24 10:57 Interpretation Summary Hypermobile atrial septum. The left ventricular ejection fraction is 30 %. Normal LV size. Mild concentric left ventricular hypertrophy. Mild (1+) eccentric mitral valve insufficiency. Mild to moderate (1-2+) tricuspid valve insufficiency. Compared to previous study, the left ventricular systolic function has worsened.. Ordering Physician: Ana Luisa Rosa Referring Physician: Raven Wylie Performed By: Yuridia Fiore RDCS Abdomen/Pelvis CT 10/02/24 09:23 IMPRESSION: 1. Re-demonstration of the hypodense lesion of the right adrenal gland measuring up to 3.5 cm with punctate calcification, likely an adenoma. 2. Calcified atherosclerotic disease of the infrarenal aorta measuring up to 3.7 cm. 3. Fecal retention in the colon consistent with constipation. 4. Bilateral renal pelvic calculi, largest measuring up to 3 mm without obstruction. Reading Location: [facility] Physical Exam Const alert and oriented x3 Constitutional Narrative: in mild distress due to abdominal pain General Appearance: cooperative HEENT normocephalic, head/scalp atraumatic, moist oral mucous membranes and oropharynx normal Eyes PERRL and EOMs intact bilaterally Neck no lymphadenopathy and supple Lymph Lymphatic: no lymphadenopathy noted and no lymphedema noted Resp Resp Narrative: diminished breath sounds bibasally, no wheezes or crackles. On 2L of oxygen by nasal canula Cardio regular rate, regular rhythm, S1 normal heart sound, S2 normal heart sound and no murmurs GI normal to inspection, nondistended, normoactive bowel sounds, soft to palpation, non-tender and non-distended Extremity normal capillary refill, no clubbing, cyanosis or edema and no calf tenderness General Extremity: no tenderness to palpation of joints or extremities Skin General Skin Exam: no breakdown Neuro CN's II-XII intact bilaterally, no focal motor deficits and no sensory deficits noted Motor Exam: strength 5/5 throughout and general weakness Psych thought process normal, cooperative and affect normal Appearance: appropriate Assessment & Plan Assessment/Plan (1) COPD exacerbation: PLAN: Plan #Hypoxia due to acute COPD exacerbation * remains on 2 L of oxygen which is her baseline. Admitted with a complaint of shortness of breath and wheezing. * On IV Solu-Medrol. Breathing treatments bronchodilators. * Titrate oxygen to maintain saturation above 90%. * #ESRD on hemodialysis: Nephrology on board. Management as per nephrology. On PO Lasix 80 mg twice daily. #Hyponatremia: Sodium is 128. Does have chronic hyponatremia. Dialysis today should help. Will monitor. #Hyperkalemia: Potassium is 5.4 today. Due for dialysis today. This should help the hyperkalemia #Anion gap metabolic acidosis. * Bicarb is 20 and anion gap is 17. This is likely due to uremia as BUN is 81. * She is due for dialysis today and that should help with the anion gap metabolic acidosis. * #Abdominal pain likely due to constipation * Patient complained of severe abdominal pain today. She had mild pain in her right lower quadrant. CT of the abdomen and pelvis done showed redemonstration of hypodense lesion of the right adrenal gland measuring up to 3.5 cm with punctate calcification, likely an adenoma and fecal retention in the colon consistent with constipation as well as bilateral renal pelvic calculi with the largest measuring about 3 mm without obstruction and calcified atherosclerotic disease in the infrarenal aorta measuring up to 3.7 cm * Will give tapwater enema to see if will help with constipation. P.o. Tylenol and p.o. oxycodone as needed for pain #Elevated troponins * Initial troponin was 75 but subsequently trended downwards. Likely due to decreased clearance from her ESRD as well as demand ischemia from hypoxia. * She did not have any chest pain. * will get 2D echo. Her last echo was in August 2023 which showed EF of 55% moderate concentric left ventricular hypertrophy with no regional motion abnormalities noted. * No further workup needed as she has remained stable. #Depression and anxiety: On sertraline #History of CAD: S/p aspirin and statin as well as carvedilol #GERD: PPI DVT prophylaxis: Heparin Disposition: anticipate dc tomorrow. Patient does not want to go home today because of the abdominal pain due to constipation. Charges/Coding Visit Charges Inpatient E&M: 67516 Subs Hosp L2
[2024-10-02] MEDS: HYDROcodone Bitartrate/Apap 5/325 Tablet PO (18:51)
--- NOTE | 2024-10-02 19:09 | PCM.PN.REN ---
Subjective Subjective no new events Objective Data Objective Data Vital Signs: Vital Signs Temp Pulse Resp BP Pulse Ox O2 Del Method O2 Flow Rate 98.3 F 72 18 111/61 98 Nasal Cannula 2 10/02/24 14:36 10/02/24 14:36 10/02/24 14:36 10/02/24 14:36 10/02/24 14:36 10/02/24 14:51 10/02/24 14:51 Oxygen Flow Rate (L/min) 2 Oxygen Delivery Method Nasal Cannula Weight: 72.2 kg Body Mass Index (BMI) 27.1 Intake & Output: Intake and Output for Last 24 Hours 09/30/24 10/01/24 10/02/24 23:59 23:59 23:59 Intake Total 860 / 860 Output Total 6080 / 6080 2520 / 2520 Balance -5220 / -5220 -2520 / -2520 Lab / Micro Data 10/02/24 06:42 10/02/24 06:42 Labs: Laboratory Results - last 24 hr 10/02/24 06:42: WBC 6.7, RBC 3.14 L, Hgb 10.4 L, Hct 32.2 L, MCV 102.5 H, MCH 33.1 H, MCHC 32.3, RDW Std Deviation 57.2 H, RDW Coeff of Lola 15.7 H, Plt Count 150, MPV 9.8, Immature Gran % (Auto) 0.700, Neut % (Auto) 89.9 H, Lymph % (Auto) 4.9 L, Humphreys % (Auto) 4.5, Eos % (Auto) 0.0, Baso % (Auto) 0.0, Absolute Neuts (auto) 6.0, Absolute Lymphs (auto) 0.33 L, Nucleated RBC % 0.4, Sodium 128 L, Potassium 5.4 H, Chloride 91 L, Carbon Dioxide 20.0 L, Anion Gap 17 H, BUN 81 H, Creatinine 5.67 H, Estim Creat Clear Calc 9.69, Est GFR (MDRD) Af Amer 10 L, Est GFR (MDRD) Non-Af 8 L, BUN/Creatinine Ratio 14.3, Glucose 166 H, Calcium 9.1 Micro: Microbiology 09/30/24 00:18 Sputum, Expectorated/Coughed Gram Stain - Final 09/30/24 00:18 Sputum, Expectorated/Coughed Respiratory Culture - Final Mixed normal respiratory tarsha. No Streptococcus pneumoniae, beta-hemolytic Streptococcus or Staphylococcus aureus isolated. 09/29/24 23:15 Mucosa - Nasopharyngeal Respiratory Panel (PCR) - Final 09/29/24 13:33 Mucosa - Nose SARS-CoV-2, Influenza & RSV (PCR) - Final Radiography Diagnostic Testing: Radiology Impression Abdomen/Pelvis CT 10/02/24 09:23 IMPRESSION: 1. Re-demonstration of the hypodense lesion of the right adrenal gland measuring up to 3.5 cm with punctate calcification, likely an adenoma. 2. Calcified atherosclerotic disease of the infrarenal aorta measuring up to 3.7 cm. 3. Fecal retention in the colon consistent with constipation. 4. Bilateral renal pelvic calculi, largest measuring up to 3 mm without obstruction. Reading Location: [facility] Physical Exam Narrative Alert awake oriented x 3 no obvious distress no pallor no icterus no JVD s1s2 no murmurs lungs clear abdomen soft no organomegaly no edema no cyanosis Assessment & Plan Assessment/Plan (1) ESRD (end stage renal disease): PLAN: On hemodialysis Sunday, , Sunday schedule. HD today . see orders
[2024-10-02] MEDS: Atorvastatin Calcium 80 MG Tablet PO (22:32)
[2024-10-03] VITALS (17 sets, daily range): BP systolic 114–211; BP diastolic 73–105; PULSE 57–85; RESP 16–24; TEMP 36.1–36.8; O2SAT 97–100; BMI 27.4; BMI 26.7
[2024-10-03] MEDS: Acetaminophen 325 MG Tablet 650 MG PO ×3 (00:07→23:37)
[2024-10-03] MEDS: Furosemide 80 MG Tablet PO ×2 (01:06→16:05)
[2024-10-03] MEDS: Mag Hydrox/Al Hydrox/Simeth 30 ML UDC PO ×2 (01:06→05:57)
[2024-10-03] MEDS: Lidocaine 2% Viscous15 ML UDC 15 ML PO (01:06)
[2024-10-03] MEDS: Heparin Injection (Vial) 5,000 UNIT/ML VIAL 5000 UNIT SC ×3 (05:57→21:00)
[2024-10-03] MEDS: 0.9% Saline Lock 10 ML Syringe IV ×2 (06:08→16:06)
[2024-10-03] MEDS: Ipratropium/Albuterol Sulfate 3 ML AMPUL.NEB INHALATION ×3 (06:41→19:28)
[2024-10-03 07:12] LABS: Absolute Lymphocyte Count 0.26 X10^3/uL (0.83-4.51); Absolute Neutrophil Count 7.1 X10^3/uL (2.0-7.7); Basophil# 0.01 X10^3/uL; Basophil% 0.1 % (0-1); Hematocrit 32.7 % (37-47); Hemoglobin 10.8 g/dL (12.0-15.0); Lymphocyte # 0.26 X10^3/ul (0.83-4.51); Lymphocyte % 3.4 % (19-41); Mean Corpuscular Hgb 34.3 pg (27.0-32.0); Mean Corpuscular Volume 103.8 fL (81-99); Mean Platelet Vol. 9.6 fl (6.2-12.0); Monocyte# 0.31 X10^3/uL; NRBC Flagged by Analyzer 0.3 % (0-5); Neutrophil # 7.08 X10^3/uL (2.7-7.7); Neutrophil % 91.5 % (47-70); POSITIVE DIFFERENTIAL YES; Platelet Count 142 K/mm3 (150-450); RBC Distribution Width CV 15.9 % (11.6-14.6); RBC Distribution Width SD 58.9 fl (35.1-43.9); Red Blood Count 3.15 M/mm3 (4.2-5.4); White Blood Count 7.7 K/mm3 (4.4-11.0)
[2024-10-03 08:06] LABS: Anion Gap 16 (5-15); BUN 63 mg/dL (7-18); BUN/Creat Ratio 14.4 RATIO (10-20); Calcium,Total 9.5 mg/dL (8.5-10.1); Chloride 93 mmol/L (98-107); Creatinine, Serum 4.37 mg/dL (0.55-1.02); EST Glomerular Filtration Rate 11 mL/min (>60); Est Glom Filt Rate - Afr Amer 13 mL/min (>60); Glucose 154 mg/dL (74-106); Potassium 5.5 mmol/L (3.5-5.1); Sodium Level 127 mmol/L (136-145)
[2024-10-03] MEDS: Smz/Tmp Ds Tablet 0.5 TABLET PO ×2 (09:25→17:27)
[2024-10-03] MEDS: Carvedilol 25 MG Tablet PO ×2 (09:26→21:01)
[2024-10-03] MEDS: guaiFENesin 1,200 MG Tablet 1200 MG PO ×2 (09:26→21:00)
[2024-10-03] MEDS: Calcium Acetate 667 MG Capsule PO ×3 (09:26→17:27)
[2024-10-03] MEDS: Aspirin E.C. 81 MG Tablet PO (09:26)
[2024-10-03] MEDS: Clopidogrel Bisulfate 75 MG Tablet PO (09:26)
[2024-10-03] MEDS: Folic Acid/Vitamin B Comp W-C 1 Capsule 1 CAP PO (09:26)
[2024-10-03] MEDS: Pantoprazole Sodium 40 MG Tablet PO (09:27)
[2024-10-03] MEDS: Sertraline 50 MG Tablet 25 MG PO (09:27)
[2024-10-03] MEDS: Cholecalciferol (VIT D3) 25 MCG TABLET (1,000 UNITS) PO (09:27)
--- NOTE | 2024-10-03 10:58 | PCM.PN.REN ---
Subjective Subjective Sitting on side of bed, complaining of difficulty time breathing. Patient feels she has extra fluid on. Patient asking for fluid removal today with dialysis. Objective Data Objective Data Vital Signs: Vital Signs Temp Pulse Resp BP Pulse Ox O2 Del Method O2 Flow Rate 97.5 F L 69 18 120/73 97 Nasal Cannula 2 10/03/24 09:37 10/03/24 09:37 10/03/24 09:37 10/03/24 09:37 10/03/24 09:37 10/03/24 09:37 10/03/24 09:37 Oxygen Flow Rate (L/min) 2 Oxygen Delivery Method Nasal Cannula Weight: 73 kg Body Mass Index (BMI) 27.4 Intake & Output: Intake and Output for Last 24 Hours 10/01/24 10/02/24 10/03/24 23:59 23:59 23:59 Intake Total 300 / 300 180 / 180 Output Total 2520 / 2520 Balance -2220 / -2220 180 / 180 Lab / Micro Data 10/03/24 07:02 10/03/24 07:02 Labs: Laboratory Results - last 24 hr 10/03/24 07:02: WBC 7.7, RBC 3.15 L, Hgb 10.8 L, Hct 32.7 L, MCV 103.8 H, MCH 34.3 H, MCHC 33.0, RDW Std Deviation 58.9 H, RDW Coeff of Lola 15.9 H, Plt Count 142 L, MPV 9.6, Immature Gran % (Auto) 1.000 H, Neut % (Auto) 91.5 H, Lymph % (Auto) 3.4 L, Mccone % (Auto) 4.0, Eos % (Auto) 0.0, Baso % (Auto) 0.1, Absolute Neuts (auto) 7.1, Absolute Lymphs (auto) 0.26 L, Nucleated RBC % 0.3, Sodium 127 L, Potassium 5.5 H, Chloride 93 L, Carbon Dioxide 18.0 L, Anion Gap 16 H, BUN 63 H, Creatinine 4.37 H, Estim Creat Clear Calc 12.40, Est GFR (MDRD) Af Amer 13 L, Est GFR (MDRD) Non-Af 11 L, BUN/Creatinine Ratio 14.4, Glucose 154 H, Calcium 9.5 Micro: Microbiology 09/30/24 00:18 Sputum, Expectorated/Coughed Gram Stain - Final 09/30/24 00:18 Sputum, Expectorated/Coughed Respiratory Culture - Final Mixed normal respiratory tarsha. No Streptococcus pneumoniae, beta-hemolytic Streptococcus or Staphylococcus aureus isolated. 09/29/24 23:15 Mucosa - Nasopharyngeal Respiratory Panel (PCR) - Final 09/29/24 13:33 Mucosa - Nose SARS-CoV-2, Influenza & RSV (PCR) - Final Radiography Diagnostic Testing: Radiology Impression Abdomen/Pelvis CT 10/02/24 09:23 IMPRESSION: 1. Re-demonstration of the hypodense lesion of the right adrenal gland measuring up to 3.5 cm with punctate calcification, likely an adenoma. 2. Calcified atherosclerotic disease of the infrarenal aorta measuring up to 3.7 cm. 3. Fecal retention in the colon consistent with constipation. 4. Bilateral renal pelvic calculi, largest measuring up to 3 mm without obstruction. Reading Location: [facility] Physical Exam Narrative Alert awake oriented x 3 s1s2 no murmurs Very diminished breath sounds, expiratory wheezing with rhonchi abdomen soft, nontender Trace edema bilateral lower leg AV fistula positive thrill and bruit Assessment & Plan Assessment/Plan (1) ESRD (end stage renal disease): PLAN: On hemodialysis Sunday, , Sunday schedule. Outpatient EDW 68.7 kg. Current weight around 73 kg. Patient requesting for dialysis with fluid removal today as she is complaining of shortness of breath with difficulty breathing. On O2 per nasal cannula. Will plan for sequential treatment around 2 hours and attempt 2 to 3 L fluid removal as patient/blood pressure tolerates. Next HD session will be tomorrow with fluid removal again as patient/blood pressure will tolerate.
--- NOTE | 2024-10-03 11:56 | PN_ITS ---
Subjective Subjective Patient seen and examined. She was complaining of feeling short of breath. She states she did not have enough fluid taken off yesterday. Says she was over her dry weight by about 5 L but she had not had to be taken off. She therefore wants to have dialysis again today. She did have dialysis yesterday but says she wants another session today. She is on 2 L of oxygen. She did have a bowel movement yesterday which helped a bit with the abdominal pain. However she did require GI cocktail 2. Review of systems otherwise negative. Objective Data Objective Data Vital Signs: Vital Signs Temp Pulse Resp BP Pulse Ox O2 Del Method O2 Flow Rate 97.5 F L 69 18 120/73 97 Nasal Cannula 2 10/03/24 09:37 10/03/24 09:37 10/03/24 09:37 10/03/24 09:37 10/03/24 09:37 10/03/24 09:37 10/03/24 09:37 Oxygen Flow Rate (L/min) 2 Oxygen Delivery Method Nasal Cannula Weight: 160 lb 14.999 oz Body Mass Index (BMI) 27.4 Intake & Output: Intake and Output for Last 24 Hours 10/01/24 10/02/24 10/03/24 23:59 23:59 23:59 Intake Total 300 / 300 180 / 180 Output Total 2520 / 2520 Balance -2220 / -2220 180 / 180 Lab / Micro Data 10/03/24 07:02 10/03/24 07:02 Labs: Laboratory Results - last 24 hr 10/03/24 07:02: WBC 7.7, RBC 3.15 L, Hgb 10.8 L, Hct 32.7 L, MCV 103.8 H, MCH 34.3 H, MCHC 33.0, RDW Std Deviation 58.9 H, RDW Coeff of Lola 15.9 H, Plt Count 142 L, MPV 9.6, Immature Gran % (Auto) 1.000 H, Neut % (Auto) 91.5 H, Lymph % (Auto) 3.4 L, [place] % (Auto) 4.0, Eos % (Auto) 0.0, Baso % (Auto) 0.1, Absolute Neuts (auto) 7.1, Absolute Lymphs (auto) 0.26 L, Nucleated RBC % 0.3, Sodium 127 L, Potassium 5.5 H, Chloride 93 L, Carbon Dioxide 18.0 L, Anion Gap 16 H, BUN 63 H, Creatinine 4.37 H, Estim Creat Clear Calc 12.40, Est GFR (MDRD) Af Amer 13 L, Est GFR (MDRD) Non-Af 11 L, BUN/Creatinine Ratio 14.4, Glucose 154 H, Calcium 9.5 Micro: Microbiology 09/30/24 00:18 Sputum, Expectorated/Coughed Gram Stain - Final 09/30/24 00:18 Sputum, Expectorated/Coughed Respiratory Culture - Final Mixed normal respiratory tarsha. No Streptococcus pneumoniae, beta-hemolytic Streptococcus or Staphylococcus aureus isolated. 09/29/24 23:15 Mucosa - Nasopharyngeal Respiratory Panel (PCR) - Final 09/29/24 13:33 Mucosa - Nose SARS-CoV-2, Influenza & RSV (PCR) - Final Radiography Diagnostic Testing: Radiology Impression Abdomen/Pelvis CT 10/02/24 09:23 IMPRESSION: 1. Re-demonstration of the hypodense lesion of the right adrenal gland measuring up to 3.5 cm with punctate calcification, likely an adenoma. 2. Calcified atherosclerotic disease of the infrarenal aorta measuring up to 3.7 cm. 3. Fecal retention in the colon consistent with constipation. 4. Bilateral renal pelvic calculi, largest measuring up to 3 mm without obstruction. Reading Location: [facility] Physical Exam Const alert and oriented x3 Constitutional Narrative: i General Appearance: cooperative Orientation / Consciousness: lethargic HEENT normocephalic, head/scalp atraumatic, moist oral mucous membranes and oropharynx normal Eyes PERRL and EOMs intact bilaterally Neck no lymphadenopathy and supple Lymph Lymphatic: no lymphadenopathy noted and no lymphedema noted Resp Resp Narrative: diminished breath sounds bibasally, no wheezes or crackles. Still On 2L of oxygen by nasal canula Cardio regular rate, regular rhythm, S1 normal heart sound, S2 normal heart sound and no murmurs GI normal to inspection, nondistended, normoactive bowel sounds, soft to palpation, non-tender and non-distended Extremity normal capillary refill, no clubbing, cyanosis or edema and no calf tenderness General Extremity: no tenderness to palpation of joints or extremities Skin General Skin Exam: no breakdown Neuro CN's II-XII intact bilaterally, no focal motor deficits and no sensory deficits noted Motor Exam: strength 5/5 throughout and general weakness Psych thought process normal, cooperative and affect normal Appearance: appropriate Assessment & Plan Assessment/Plan (1) COPD exacerbation: PLAN: Plan #Hypoxia due to acute COPD exacerbation * remains on 2 L of oxygen which is her baseline. Admitted with a complaint of shortness of breath and wheezing. * On IV Solu-Medrol. Breathing treatments bronchodilators. * Titrate oxygen to maintain saturation above 90%. * #ESRD on hemodialysis: * Nephrology on board. Management as per nephrology. On PO Lasix 80 mg twice daily. * she had dialysis yesterday and is asking to have dialysis again today as she does not feel she had enough fluid taken off. She says she only had 2L taken off when she was 5L over her dry weight. * will defer to nephrology about whether she shd have dialysis again today * Sodium is 127 and potassium is 5.5. #Hyponatremia: Sodium is 127. Does have chronic hyponatremia. Dialysis today should help. Will monitor. #Hyperkalemia: Potassium is 5.4 today. Due for dialysis today. This should help the hyperkalemia #Anion gap metabolic acidosis. * Bicarb is 20 and anion gap is 16. This is likely due to uremia * Management as per nephrology. * #Abdominal pain likely due to constipation * abdominal pain has largely improved and resolved. . CT of the abdomen and pelvis done showed redemonstration of hypodense lesion of the right adrenal gland measuring up to 3.5 cm with punctate calcification, likely an adenoma and fecal retention in the colon consistent with constipation as well as bilateral renal pelvic calculi with the largest measuring about 3 mm without obstruction and calcified atherosclerotic disease in the infrarenal aorta measuring up to 3.7 cm * she had large bowel movement with tap water enema * she also had GI cocktail overnight and this also helped. * P.o. Tylenol and p.o. oxycodone as needed for pain #Elevated troponins * Initial troponin was 75 but subsequently trended downwards. Likely due to decreased clearance from her ESRD as well as demand ischemia from hypoxia. * She did not have any chest pain. * will get 2D echo. Her last echo was in August 2023 which showed EF of 55% moderate concentric left ventricular hypertrophy with no regional motion abnormalities noted. * No further workup needed as she has remained stable. #Depression and anxiety: On sertraline #History of CAD: S/p aspirin and statin as well as carvedilol #GERD: PPI DVT prophylaxis: Heparin Disposition:patient refusing to go home today until she gets dialysis again Charges/Coding Visit Charges Inpatient E&M: 65555 Subs Hosp L2
[2024-10-03] MEDS: 0.9% Normal Saline 1,000 ML IV.SOLN. 1000 ML OPERA.SITE (13:28)
--- NOTE | 2024-10-03 14:18 | CHAPLAIN ---
Type of Pastoral Visit _x__ Initial Visit ___ Follow-up Visit ___ On-call Visit ___ General Patient Visit ___ Spiritual Assessment ___ Family Conference ___ Bereavement ___ Rapid Response ___ Code Blue ___ Other (describe below) Pastoral Care Referral From _x__ Patient ___ Family ___ Nurse ___ Physician ___ Car Cleaner ___ Lime Burner ___ Other (describe below) Sacrament/Intervention ___ Active listening ___ Anointing ___ Jainism ___ Bereavement ___ Communion ___ Marci exploration ___ ___ Life review _x__ Prayer ___ Reconciliation ___ Sacrament of Sick _x__ Supportive presence ___ Wedding ___ Other (describe below) Pastoral Comments patient just started her dialysis procedure; pt is having anxiety and concerned about breathing; pt also receiving a breathing treatment and makes it more difficult for her to speak; pt declares the same but welcomes presence and prayer; nurse welcomes this title attorney to offer calming presence and prayer as well; pt is grateful to support of this title attorney; pt appears to have more calm after the visit was made
--- NOTE | 2024-10-03 15:29 | NURSING ---
Pt pulling old tape from fistula site and gave self a skin tear. skin tear to RAJIV 1.2cmx1.8cm. area cleaned, adaptic applied covered with non stick pad then wrapped with kerlex. Primary RN Sammie roldan.
--- NOTE | 2024-10-03 16:01 | CASEMGMT ---
Social Work Pt to discharge Sunday from [facility] to [facility]. Pt has Dialysis at 1230. Pt does not have transportation. [facility] [place] [facility] ([phone]) and arranged for Transportation. Confirmation Number [id number] Pt to be ready and waiting at the [facility] Main Entrance at 11:30 and will be picked up and transported to [facility]. Pt will be picked up at [facility] at 3:45 and taken to her home. Pt updated and agreeable. Nursing updated to have pt at Main Entrance no later than 11:30. Physician notified of discharge time tomorrow. DAMIAN Robles
--- NOTE | 2024-10-03 16:25 | CASEMGMT ---
Per hospitalist patient is ready for discharge. JOHAN HAYES in to discuss discharge today. Patient states she does not have her keys and is unable to discharge home today. Patient states she was going to have [facility] pick her up at 0600 in the morning to take her to HD. RN FREDDY updated Hospitalist, hospitalist states she will not discharge patient without seeing her prior to discharge. RN CM update patient that hospitalist is not agreeable to plan. JOHAN HAYES called [facility] to see if patient could have a later chair time for Sunday, per [facility] patient can arrive at 1230 and would be done at 1545 for pickup. RN FREDDY updated patient and requested to call [facility] to transport. RN FREDDY called [facility] and they are not able to provide transport for that time. JOHAN HAYES updated SW to schedule through patient's insurance. RN FREDDY asked patient if she had portable tank for at discharge, patient states no. RN FREDDY called Manpreet with [facility] to provide tank from stock. JOHAN HAYES discussed if patient would need HHC at discharge. Patient states she can't think straight and asked for CM to follow-up in the morning. Patient had no further questions or concerns. Green sheet placed on chart for increase in oxygen if needed.
[2024-10-03] MEDS: Atorvastatin Calcium 80 MG Tablet PO (21:00)
[2024-10-03] MEDS: MELATONIN 3 MG TABLET PO (22:38)
[2024-10-04] VITALS (17 sets, daily range): BP systolic 116–255; BP diastolic 66–102; PULSE 58–73; RESP 16–24; TEMP 37.1; O2SAT 96–100; BMI 26.7; BMI 25.6
[2024-10-04] MEDS: Albuterol 2.5 MG/3 ML VIAL.NEB. INHALATION (02:22)
[2024-10-04] MEDS: Furosemide 80 MG Tablet PO ×2 (02:35→15:41)
[2024-10-04 06:04] LABS: Absolute Lymphocyte Count 0.27 X10^3/uL (0.83-4.51); Absolute Neutrophil Count 8.1 X10^3/uL (2.0-7.7); Basophil# 0.01 X10^3/uL; Basophil% 0.1 % (0-1); Hematocrit 34.2 % (37-47); Hemoglobin 11.3 g/dL (12.0-15.0); Lymphocyte # 0.27 X10^3/ul (0.83-4.51); Lymphocyte % 3.1 % (19-41); Mean Platelet Vol. 9.9 fl (6.2-12.0); Monocyte# 0.33 X10^3/uL; Monocyte% 3.8 % (0-10); NRBC Flagged by Analyzer 0.3 % (0-5); Neutrophil # 8.06 X10^3/uL (2.7-7.7); Neutrophil % 92.1 % (47-70); POSITIVE DIFFERENTIAL YES; Platelet Count 149 K/mm3 (150-450); RBC Distribution Width CV 15.8 % (11.6-14.6); RBC Distribution Width SD 57.6 fl (35.1-43.9); Red Blood Count 3.32 M/mm3 (4.2-5.4); White Blood Count 8.8 K/mm3 (4.4-11.0)
[2024-10-04] MEDS: Heparin Injection (Vial) 5,000 UNIT/ML VIAL 5000 UNIT SC (07:01)
[2024-10-04 07:45] LABS: Anion Gap 15 (5-15); BUN 84 mg/dL (7-18); BUN/Creat Ratio 16.5 RATIO (10-20); Calcium,Total 9.2 mg/dL (8.5-10.1); Chloride 91 mmol/L (98-107); Creatinine, Serum 5.08 mg/dL (0.55-1.02); EST Glomerular Filtration Rate 9 mL/min (>60); Est Glom Filt Rate - Afr Amer 11 mL/min (>60); Estimated Creatinine Clearance 10.53 ml/min; Glucose 141 mg/dL (74-106); Potassium 6.4 mmol/L (3.5-5.1); Sodium Level 125 mmol/L (136-145)
[2024-10-04] MEDS: Sodium Polystyrene Sulfonate 15 GM/60 ML UDC 30 GM PO (08:06)
[2024-10-04] MEDS: Ipratropium/Albuterol Sulfate 3 ML AMPUL.NEB INHALATION (08:14)
--- NOTE | 2024-10-04 09:53 | CASEMGMT ---
Addendum entered by Jonathon Urias 10/04/24 10:07: Dr. Rosa states that she spoke to Dr Vazquez and that they plan to dialyze the pt here at [facility] prior to DC today. SW updated and aware regarding transportation needs. Original Note: This RN CM was notified to f/u with the pt this morning about HHC. At this time, the pt states that she would like HHC. Pt denies wanting to review a list of local in-network HHC agencies and that she prefers [facility] HH. TC to [facility] and referral made for SN, PT, and OT. CM to f/u on Sunday regarding referral process. Pt OK with this plan and is aware that DC is planned for today no later than 1130am. Dr. Rosa updated.
[2024-10-04] MEDS: Smz/Tmp Ds Tablet 0.5 TABLET PO (10:25)
[2024-10-04] MEDS: Aspirin E.C. 81 MG Tablet PO (10:25)
[2024-10-04] MEDS: Calcium Acetate 667 MG Capsule PO (10:26)
[2024-10-04] MEDS: Carvedilol 25 MG Tablet PO (10:26)
[2024-10-04] MEDS: Clopidogrel Bisulfate 75 MG Tablet PO (10:26)
[2024-10-04] MEDS: Folic Acid/Vitamin B Comp W-C 1 Capsule 1 CAP PO (10:26)
[2024-10-04] MEDS: guaiFENesin 1,200 MG Tablet 1200 MG PO (10:26)
[2024-10-04] MEDS: Cholecalciferol (VIT D3) 25 MCG TABLET (1,000 UNITS) PO (10:26)
[2024-10-04] MEDS: Pantoprazole Sodium 40 MG Tablet PO (10:26)
[2024-10-04] MEDS: Sertraline 50 MG Tablet 25 MG PO (10:27)
--- NOTE | 2024-10-04 11:15 | CASEMGMT ---
Addendum entered by Cheryl Oakes 10/04/24 13:39: Social Work- SW updated pt and bedside nurse on 3:30 discharge time. Pt reports that she understands that they will not wait for her and will let the nurse know when they call her 10 minutes away. Bedside nurse understanding pt needs to be at main entrance at 3:30. DAMIAN Gandhi Original Note: Social Work- SW received notice from physician that pt will be receiving dialysis prior to discharge; pt will not discharge at 11:30. SW notified charge nurse. NIXON collaborated with bedside nurse. NIXON called provide a ride and changed transport time to 3:30PM, as pt is reported to be ready by 3. NIXON called [facility] to confirm appointment had been canceled. [facility] reported that no one had reached out and thanked NIXON for the update. Plan: Pt to be at the main entrance at 3:30 PM sharp for discharge home. [id number] will call pt when they are 10 minutes away. Pt will resumes dialysis with [facility] at next regularly scheduled visit. DAMIAN Gandhi
[2024-10-04] MEDS: 0.9% Normal Saline 1,000 ML IV.SOLN. 1000 ML OPERA.SITE (11:30)
[2024-10-04] MEDS: PureFlow B 2K Dialysis Soln 1 BAG 6 BAG PF (11:31)
[2024-10-04] MEDS: Heparin 10,000 UNITS/10 ML Vial 2000 UNITS IV (11:31)
[2024-10-04] MEDS: 0.9% Saline Lock 10 ML Syringe IV ×2 (11:31→15:43)
--- NOTE | 2024-10-04 14:40 | DS.PCM_ITS ---
Providers Date of Admission: 09/29/24 Date of Discharge: 10/04/24 Primary Care Physician: Dr. Elvin Becerra MD Consultations 09/29/24 21:37 Consult: Nephrology Routine Consulting Provider: Adrian Vazquez Reason for Consult: esrd on HD EMERGENT Consult: No MD Notified: Yes Date Notified: 09/29/24 Time Notified: 22:55 Method of Notification: Answering Service Reason For Visit: INCREASING SOB Diagnosis Discharge Diagnosis (1) COPD exacerbation: Status: Chronic Code(s): J44.1 - Chronic obstructive pulmonary disease with (acute) exacerbation Plan #Hypoxia due to acute COPD exacerbation * remains on 2 L of oxygen which is her baseline. Admitted with a complaint of shortness of breath and wheezing. * On IV Solu-Medrol. Breathing treatments bronchodilators. * Titrate oxygen to maintain saturation above 90%. * #ESRD on hemodialysis: * Nephrology on board. Management as per nephrology. On PO Lasix 80 mg twice daily. * she had dialysis yesterday and is asking to have dialysis again today as she does not feel she had enough fluid taken off. She says she only had 2L taken off when she was 5L over her dry weight. * will defer to nephrology about whether she shd have dialysis again today * Sodium is 127 and potassium is 5.5. #Hyponatremia: Sodium is 127. Does have chronic hyponatremia. Dialysis today should help. Will monitor. #Hyperkalemia: Potassium is 5.4 today. Due for dialysis today. This should help the hyperkalemia #Anion gap metabolic acidosis. * Bicarb is 20 and anion gap is 16. This is likely due to uremia * Management as per nephrology. * #Abdominal pain likely due to constipation * abdominal pain has largely improved and resolved. . CT of the abdomen and pelvis done showed redemonstration of hypodense lesion of the right adrenal gland measuring up to 3.5 cm with punctate calcification, likely an adenoma and fecal retention in the colon consistent with constipation as well as bilateral renal pelvic calculi with the largest measuring about 3 mm without obstruction and calcified atherosclerotic disease in the infrarenal aorta measuring up to 3.7 cm * she had large bowel movement with tap water enema * she also had GI cocktail overnight and this also helped. * P.o. Tylenol and p.o. oxycodone as needed for pain #Elevated troponins * Initial troponin was 75 but subsequently trended downwards. Likely due to decreased clearance from her ESRD as well as demand ischemia from hypoxia. * She did not have any chest pain. * will get 2D echo. Her last echo was in August 2023 which showed EF of 55% moderate concentric left ventricular hypertrophy with no regional motion abnormalities noted. * No further workup needed as she has remained stable. #Depression and anxiety: On sertraline #History of CAD: S/p aspirin and statin as well as carvedilol #GERD: PPI DVT prophylaxis: Heparin Disposition:patient refusing to go home today until she gets dialysis again Medications at Discharge Home Medications cholecalciferol (vitamin D3) 25 mcg (1,000 unit) capsule 25 mcg PO DAILY SUPPLEMENT 10/02/21 aspirin 81 mg tablet,delayed release 81 mg PO DAILY HEART 11/14/22 atorvastatin 80 mg tablet 80 mg PO QHS CHOLESTEROL 11/14/22 clopidogrel 75 mg tablet 75 mg PO DAILY BLOOD THINNER 11/14/22 nitroglycerin 0.4 mg sublingual tablet 0.4 mg sublingual DAILY PRN CHEST PAIN 11/14/22 pantoprazole 40 mg tablet,delayed release 40 mg PO DAILY ACID REFLUX 11/14/22 vitamin B complex-vitamin C-folic acid 0.8 mg tablet (Mojgan-Kirk) 1 tab PO DAILY SUPPLEMENT 11/14/22 acetaminophen 325 mg capsule 650 mg PO BID PRN PAIN 08/07/23 sertraline 25 mg tablet 25 mg PO DAILY DEPRESSION 08/07/23 calcium acetate 667 mg tablet 667 mg PO TID 10/24/23 carvedilol 12.5 mg tablet 25 mg PO Q12H 06/02/24 furosemide 80 mg tablet 80 mg PO Q12H 06/02/24 albuterol sulfate 2.5 mg/3 mL (0.083 %) solution for nebulization 2.5 mg continuous nebulization Q6H PRN wheezing 09/29/24 sulfamethoxazole 400 mg-trimethoprim 80 mg tablet 1 tab PO BID 09/29/24 prednisone 20 mg tablet 40 mg (2 x 20 mg) PO DAILY #10 tabs 10/04/24 Hospital Course Operations None Procedures Dialysis Summary of Care Provided Minutes Spent on Discharge: 55 Hospital Course: Patient is a 64-year-old female with past medical history as outlined including ESRD on hemodialysis and chronic hypoxic respiratory failure due to COPD, on 2 L of oxygen. She was admitted through the ED on 09/29/2024 with a complaint of shortness of breath and leg swelling. She also had a cough which was nonproductive. Her symptoms have been going on for several days. CXR showed cardiomegaly. She was hypoxic on admission and went down to 88%. She said her shortness of breath had been going on for several days and she had associated lower extremity edema. She was admitted and managed for hypoxia in the setting of chronic respiratory failure due to acute COPD exacerbation. She was diuresed with IV Lasix and given breathing treatments bronchodilators. Nephrology was consulted on account of her needing dialysis. Hospitalist course was complicated by hyponatremia and hyperkalemia which is likely due to the kidney disease needing dialysis. She also complained of abdominal pain which was thought to be due to constipation. She has CT of the abdomen and pelvis which showed redemonstration of hypodense lesion of the right adrenal gland measuring up to 3.5 cm with punctate calcification, likely an adenoma and fecal retention in the colon consistent with constipation as well as bilateral renal pelvic calculi with the largest measuring about 3 mm without obstruction and calcified atherosclerotic disease in the infrarenal aorta measuring up to 3.7 cm. She was given a tap water enema which helped with constipation and she did much better after a bowel movement. GI cocktail also helped. Plan was for patient to be discharged on 10/03/2024 but she did not want to be discharged home on that day. She was therefore to be discharged early on 10/04/2024 for her to get dialysis on outpatient basis. However, on 10.04.2024, she was hyperkalemic with potassium of 6.4. She was given a dose of kayexalate 30mg x 1 and I spoke to the front facer about dialyzing here prior to discharge. Nephrology was in agreement with this. She was therefore dialyzed on 10/04/2024. She was subsequently discharged home with p.o. prednisone 40 mg daily for 5 days. She is follow-up with her primary care doctor within 1 to 2 weeks and also follow-up with nephrology within 1 week. Patient seen and examined. She complained of shortness of breath due to fluid overload. Review of systems otherwise negative. Labs and vitals reviewed. Home medication reviewed and reconciled. Physical Exam Const alert and oriented x3 Constitutional Narrative: i General Appearance: cooperative and comfortable Orientation / Consciousness: lethargic HEENT normocephalic, head/scalp atraumatic, hearing grossly normal bilaterally, moist oral mucous membranes and oropharynx normal Eyes PERRL, EOMs intact bilaterally and conjunctivae normal Neck no lymphadenopathy and supple Lymph Lymphatic: no lymphadenopathy noted and no lymphedema noted Resp Resp Narrative: diminished breath sounds bibasally, no wheezes or crackles. Still On 2L of oxygen by nasal canula Cardio regular rate, regular rhythm, S1 normal heart sound, S2 normal heart sound and no murmurs GI normal to inspection, nondistended, normoactive bowel sounds, soft to palpation, non-tender and non-distended Extremity normal to inspection, full ROM, normal capillary refill, no clubbing, cyanosis or edema and no calf tenderness General Extremity: no tenderness to palpation of joints or extremities Skin no rashes or lesions noted General Skin Exam: no breakdown Neuro oriented x3, CN's II-XII intact bilaterally, moves all extremities, no focal motor deficits and no sensory deficits noted Sensorium / Orientation: awake Motor Exam: strength 5/5 throughout and general weakness Psych thought process normal, cooperative and affect normal Appearance: appropriate Weight / BMI Weight Weight: 149 lb 14.629 oz Body Mass Index (BMI) 25.6 ABG / Lab / Microbiology Data 10/04/24 05:18 10/04/24 05:18 Laboratory: Laboratory Results - last 24 hr 10/04/24 05:18: WBC 8.8, RBC 3.32 L, Hgb 11.3 L, Hct 34.2 L, MCV 103.0 H, MCH 34.0 H, MCHC 33.0, RDW Std Deviation 57.6 H, RDW Coeff of Lola 15.8 H, Plt Count 149 L, MPV 9.9, Immature Gran % (Auto) 0.900, Neut % (Auto) 92.1 H, Lymph % (Auto) 3.1 L, Brewster % (Auto) 3.8, Eos % (Auto) 0.0, Baso % (Auto) 0.1, Absolute Neuts (auto) 8.1 H, Absolute Lymphs (auto) 0.27 L, Nucleated RBC % 0.3, Sodium 125 L, Potassium 6.4 H*, Chloride 91 L, Carbon Dioxide 19.0 L, Anion Gap 15, BUN 84 H, Creatinine 5.08 H, Estim Creat Clear Calc 10.53, Est GFR (MDRD) Af Amer 11 L, Est GFR (MDRD) Non-Af 9 L, BUN/Creatinine Ratio 16.5, Glucose 141 H, Calcium 9.2 Microbiology: Microbiology 09/30/24 00:18 Sputum, Expectorated/Coughed Gram Stain - Final 09/30/24 00:18 Sputum, Expectorated/Coughed Respiratory Culture - Final Mixed normal respiratory tarsha. No Streptococcus pneumoniae, beta-hemolytic Streptococcus or Staphylococcus aureus isolated. 09/29/24 23:15 Mucosa - Nasopharyngeal Respiratory Panel (PCR) - Final 09/29/24 13:33 Mucosa - Nose SARS-CoV-2, Influenza & RSV (PCR) - Final D/C Instructions Discharge Diet: Low fat / Low cholesterol Discharge Activity: Return to Normal Activity Weight Bearing Status: Weight bearing as tolerated Call your doctor if you observe: Fever of 101 or Higher, Shortness of breath, Dizziness, Swelling in the ankles, Chest pain and Increased palpitations (irregular heartbeat) DC O2, CPAP, BIPAP Needs RN Home O2 Qualification: Home O2 Qualification: Is the patient on home oxygen Yes 10/04/24 15:04 Home O2 Qualification: AT REST 1-Pulse Ox at rest 100 10/04/24 15:04 1- Oxygen flow rate at rest 2 10/04/24 15:04 Home O2 Qualification: WITH AMBULATION 1- Pulse Ox with ambulation 99 10/04/24 15:04 1- Oxygen Flow Rate with 2 10/04/24 15:04 ambulation Home O2 Discharge instructions: Yes Type of respiratory needs?: Oxygen (2) Oxygen frequency: Continuous Continuous oxygen liters per minute: 2 DC home with Oxygen: Yes Home O2 MD Review: I have reviewed the oxygen testing, and the patient qualifies for home oxygen equipment and portability. The patient is mobile in the home and the community. Meaningful Use Info Meaningful Use Meaningful Use Diagnoses (Choose all that apply): None applicable Ischemic Stroke Statin Dosing Therapy Reference: STATIN DOSE THERAPY REFERENCE: * Patients > 75 years receive moderate or high dose statin therapy. * Patients 75 years or YOUNGER should receive HIGH intensity statin dose unless contraindicated. You will be required to document reason for non-treatment if statin daily dose does not meet guidelines. HIGH DOSE STATIN THERAPY DAILY Atorvastatin > than or = to 40 mg Rosuvastatin > than or = to 20 mg Amlodipine + Atorvastatin > than or = to 2.5/40 mg Ezetimibe + Simvastatin 10/80 mg Simvastatin 80mg Discharge Plan Admission Admit Date/Time: 09/29/24 19:09 Primary Reason for Your Visit: influenza infection Attending Provider: Ana Luisa Rosa Primary Care Provider: Elvin Becerra Consulting Providers: Adrian Vazquez; Raven Wylie Instructions Patient Instructions: COPD Meds Discharge Orders/Prescriptions Prescriptions: New prednisone 20 mg tablet 40 mg PO DAILY Qty: 10 0RF Continued calcium acetate 667 mg tablet 667 mg PO TID cholecalciferol (vitamin D3) 25 mcg (1,000 unit) capsule 25 mcg PO DAILY atorvastatin 80 mg tablet 80 mg PO QHS clopidogrel 75 mg tablet 75 mg PO DAILY aspirin 81 mg tablet,delayed release (DR/EC) 81 mg PO DAILY pantoprazole 40 mg tablet,delayed release (DR/EC) 40 mg PO DAILY Mojgan-Kirk 0.8 mg tablet 1 tab PO DAILY nitroglycerin 0.4 mg tablet, sublingual 0.4 mg sublingual DAILY PRN (Reason: CHEST PAIN ) Rx Instructions: Dissolve 1 tablet under the tongue as needed for chest pain. sertraline 25 mg tablet 25 mg PO DAILY acetaminophen 325 mg capsule 650 mg PO BID PRN (Reason: PAIN ) carvedilol 12.5 mg tablet 25 mg PO Q12H furosemide 80 mg tablet 80 mg PO Q12H albuterol sulfate 2.5 mg /3 mL (0.083 %) solution for nebulization 2.5 mg continuous nebulization Q6H PRN (Reason: wheezing) sulfamethoxazole-trimethoprim 400-80 mg tablet 1 tab PO BID Referrals / Follow Up: Adrian Vazquez MD [Med Staff - Consulting] - Within 1 Week Elvin Becerra MD [Primary Care Provider] - Within 2 Weeks Disposition Disposition (needs filled in before D/C Order can be placed): Home, Self Care Charges/Coding Visit Charges Inpatient E&M: 12955 Disch Hosp >30min
--- NOTE | 2024-10-06 11:25 | CASEMGMT ---
Christina from [facility] calls this RN CM and states that they are able to accept the pt for SOC on Sunday. TC to the pt at this time, no answer. VM left with update.
== END 2024-10-04 16:38 | disposition home or self-care (01) | DRG 190 ==
LOC: ED 15:25 → PCU 19:16
PROVIDERS: Admitting Provider Internal Medicine; Emergency Provider Emergency Medicine; PCP Family Medicine; Referring Provider Internal Medicine; Visit Provider Student in an Organized Health Care Education/Training Program
DX: J44.1 Chronic obstructive pulmonary disease with (acute) exacerbation (principal); N18.6 End stage renal disease; I50.21 Acute systolic (congestive) heart failure; I13.2 Hypertensive heart and chronic kidney disease with heart failure and with stage 5 chronic kidney disease, or end stage renal disease; E87.20 Acidosis, unspecified; I24.89 Other forms of acute ischemic heart disease; E87.1 Hypo-osmolality and hyponatremia; J96.11 Chronic respiratory failure with hypoxia; D63.8 Anemia in other chronic diseases classified elsewhere; E11.22 Type 2 diabetes mellitus with diabetic chronic kidney disease; I70.0 Atherosclerosis of aorta; F32.A Depression, unspecified; I50.9 Heart failure, unspecified; I25.10 Atherosclerotic heart disease of native coronary artery without angina pectoris; E87.5 Hyperkalemia; Z99.2 Dependence on renal dialysis; E78.5 Hyperlipidemia, unspecified; K21.9 Gastro-esophageal reflux disease without esophagitis; F41.9 Anxiety disorder, unspecified; I25.2 Old myocardial infarction; Z95.5 Presence of coronary angioplasty implant and graft; Z11.52 Encounter for screening for COVID-19; R79.89 Other specified abnormal findings of blood chemistry; Z87.891 Personal history of nicotine dependence; Z79.82 Long term (current) use of aspirin; Z88.1 Allergy status to other antibiotic agents; Z91.040 Latex allergy status; D44.11 Neoplasm of uncertain behavior of right adrenal gland; Z79.899 Other long term (current) drug therapy
CPT/HCPCS: 36415; 71045; 74176; 80048; 80053; 83605; 83735; 84484; 85025; 87070; 87205; 87631; 87633; 90937; 93005; 93306; 94640; 94668; 97162; 97166; 97530; 97535; 97802; 99285; A4216; G0257; J1940

== ENCOUNTER 2024-10-05 14:37 | Emergency (ER) | payer MEDICARE, MEDICAID, SELFPAY ==
[2024-10-05] VITALS (8 sets, daily range): BP systolic 116–161; BP diastolic 61–119; PULSE 78–84; RESP 17–30; TEMP 36.6–36.8; O2SAT 87–97; BMI 27.1
--- NOTE | 2024-10-05 15:19 | EX.ED.DYSGE1 ---
HPI <LEFTY Ricketts - Last Filed: 10/05/24 21:08> History of Present Illness Chief Complaint: Shortness of Breath Narrative Narrative: Patient presenting today with nausea, dry heaving, and right-sided abdominal pain that she has had since . She was recently admitted here to the hospital from 09/29/2024 to 10/04/2024 due to COPD exacerbation and hypoxia. She is on 2 L O2 chronically. She does have a history of CKD and last had dialysis yesterday. She was complaining of right-sided abdominal pain here in the hospital and did have a CT scan of the abdomen and pelvis performed on 10/02/2024, this did show fecal retention within the rectum and she was given a enema and was able to have a large bowel movement. Patient reports that her pain was minimally improved by that. She reports that her last bowel movement was yesterday. She denies history of abdominal surgery. She has had dry heaving but denies fevers, chills, vomiting, and urinary symptoms. She reports that her shortness of breath has improved since being admitted and being on steroids. PFS <LEFTY Ricketts - Last Filed: 10/05/24 21:08> [facility] Medical History Osteoporosis On home oxygen therapy AAA (abdominal aortic aneurysm) Bilateral pleural effusion Acute hypoxemic respiratory failure Substance abuse Diabetes Dialysis patient Sleep apnea Congestive heart failure (CHF) Myocardial infarct Coronary artery disease Migraines Asthma Kidney disease History of high cholesterol Anxiety Depression PTSD (post-traumatic stress disorder) Medical History no medical history Home Medications ?Medication ?Instructions ?Recorded ?Last Taken ?Type cholecalciferol (vitamin D3) 25 25 mcg PO DAILY SUPPLEMENT 10/02/21 09/28/24 History mcg (1,000 unit) capsule aspirin 81 mg tablet,delayed 81 mg PO DAILY HEART 11/14/22 09/28/24 History release atorvastatin 80 mg tablet 80 mg PO QHS CHOLESTEROL 11/14/22 09/28/24 History clopidogrel 75 mg tablet 75 mg PO DAILY BLOOD THINNER 11/14/22 09/28/24 History nitroglycerin 0.4 mg sublingual 0.4 mg sublingual DAILY PRN CHEST 11/14/22 Unknown History tablet PAIN pantoprazole 40 mg tablet,delayed 40 mg PO DAILY ACID REFLUX 11/14/22 09/28/24 History release vitamin B complex-vitamin C-folic 1 tab PO DAILY SUPPLEMENT 11/14/22 09/28/24 History acid 0.8 mg tablet (Mojgan-Kirk) acetaminophen 325 mg capsule 650 mg PO BID PRN PAIN 08/07/23 09/28/24 History sertraline 25 mg tablet 25 mg PO DAILY DEPRESSION 08/07/23 09/28/24 History calcium acetate 667 mg tablet 667 mg PO TID 10/24/23 09/28/24 History carvedilol 12.5 mg tablet 25 mg PO Q12H 06/02/24 09/28/24 History furosemide 80 mg tablet 80 mg PO Q12H 06/02/24 09/28/24 History albuterol sulfate 2.5 mg/3 mL 2.5 mg continuous nebulization Q6H 09/29/24 09/29/24 History (0.083 %) solution for nebulization PRN wheezing sulfamethoxazole 400 1 tab PO BID 09/29/24 09/28/24 History mg-trimethoprim 80 mg tablet prednisone 20 mg tablet 40 mg (2 x 20 mg) PO DAILY #10 tabs 10/04/24 Unknown Rx metoclopramide HCl 10 mg tablet 10 mg PO Q6H PRN nausea and 10/05/24 Unknown Rx (Reglan) vomiting 3 days #12 tabs oxycodone 5 mg tablet 5 mg PO Q6H PRN pain 3 days #12 10/05/24 Unknown Rx tabs Allergy/AdvReac Type Severity Reaction Status Date / Time Latex, Natural Rubber Allergy Rash Verified 10/05/24 14:39 Penicillins Allergy Rash Verified 10/05/24 14:39 Family History Other CAD (coronary artery disease) Heart disease Surgical History History of colectomy History of ligation of vein Hx of umbilical hernia repair History of arteriovenostomy for renal dialysis History of total hysterectomy History of coronary artery stent placement H/O tubal ligation History of section, classical Surgical History no surgical history Social History household members: none Smoking Status: Former smoker substance use type: does not use ROS <LEFTY Ricketts - Last Filed: 10/05/24 21:08> ROS ED Constitutional Constitutional ED: Denies chills or fever(s) Cardiovascular Cardiovascular: Denies chest pain Respiratory/Chest Respiratory/Chest: Reports cough; Denies dyspnea or wheezing Gastrointestinal Gastrointestinal: Reports abdominal pain and nausea; Denies constipation, diarrhea or vomiting Genitourinary Genitourinary ED: Denies dysuria, hematuria or urinary urgency Musculoskeletal Musculoskeletal: Denies arthralgias or myalgias Integumentary Denies rash Neurologic Neurologic: Denies weakness EXAM <LEFTY Ricketts - Last Filed: 10/05/24 21:08> Physical Exam Const Vital Signs: 10/05/24 14:39 10/05/24 14:45 10/05/24 14:45 Temperature 98 F 98 F Temperature Source Oral Oral Pulse Rate 81 83 Respiratory Rate 29 H 25 H Respiratory Effort Respiratory Depth Respiratory Pattern Blood Pressure 149/99 H 161/119 H Blood Pressure Mean 115 133 Pulse Ox 96 95 95 Oxygen Delivery Method Nasal Cannula Nasal Cannula Nasal Cannula Oxygen Flow Rate (L/min) 4 4 4 10/05/24 15:09 10/05/24 15:45 10/05/24 16:00 Temperature 98 F 98 F Temperature Source Oral Oral Pulse Rate 78 78 Respiratory Rate 17 19 H Respiratory Effort Short of Breath Labored Respiratory Depth Shallow Respiratory Pattern Tachypnea Blood Pressure 133/80 H 133/80 H Blood Pressure Mean 97 97 Pulse Ox 96 96 Oxygen Delivery Method Nasal Cannula Nasal Cannula Oxygen Flow Rate (L/min) 10/05/24 17:00 10/05/24 18:00 10/05/24 18:41 Temperature 98.2 F 98.1 F 98.1 F Temperature Source Oral Oral Pulse Rate 79 81 81 Respiratory Rate 23 H 30 H 30 H Respiratory Effort Respiratory Depth Respiratory Pattern Blood Pressure 116/61 146/88 H 146/88 H Blood Pressure Mean 79 107 107 Pulse Ox 97 96 96 Oxygen Delivery Method Nasal Cannula Nasal Cannula Oxygen Flow Rate (L/min) 3 4 10/05/24 19:00 Temperature Temperature Source Pulse Rate 84 Respiratory Rate 19 H Respiratory Effort Respiratory Depth Respiratory Pattern Blood Pressure Blood Pressure Mean Pulse Ox 97 Oxygen Delivery Method Nasal Cannula Oxygen Flow Rate (L/min) 4 Positive well nourished, well developed and no apparent distress General Appearance ED: well developed HEENT Reports normocephalic and head/scalp atraumatic Mouth ED: Yes moist mucous membranes normal Eyes PERRL and EOMs intact bilaterally Neck full ROM and supple Chest Wall inspection of chest normal Resp normal respiratory effort and clear to auscultation bilaterally Resp Narrative: Faint expiratory wheezes and coarse breath sounds to the bilateral lung carr. Cardio regular rate and regular rhythm GI soft to palpation, non-tender, non-distended and no masses GI Narrative: Right sided abdominal pain to palpation, no rigidity or guarding, slight bruising to the right lower quadrant from heparin injections that patient reports has been there for several days. Back/Spine normal ROM and normal to inspection Extremity normal to inspection and full ROM Neuro oriented x3, CN's II-XII intact bilaterally, moves all extremities, no focal motor deficits and no sensory deficits noted Sensorium / Orientation: awake and alert Psych mental status grossly normal and thought process normal Skin no rashes or lesions noted and no wounds <Reggie Quintanilla MD - Last Filed: 10/05/24 23:09> Physical Exam Const Vital Signs: 10/05/24 14:39 10/05/24 14:45 10/05/24 14:45 Temperature 98 F 98 F Temperature Source Oral Oral Pulse Rate 81 83 Respiratory Rate 29 H 25 H Respiratory Effort Respiratory Depth Respiratory Pattern Blood Pressure 149/99 H 161/119 H Blood Pressure Mean 115 133 Pulse Ox 96 95 95 Oxygen Delivery Method Nasal Cannula Nasal Cannula Nasal Cannula Oxygen Flow Rate (L/min) 4 4 4 10/05/24 15:09 10/05/24 15:45 10/05/24 16:00 Temperature 98 F 98 F Temperature Source Oral Oral Pulse Rate 78 78 Respiratory Rate 17 19 H Respiratory Effort Short of Breath Labored Respiratory Depth Shallow Respiratory Pattern Tachypnea Blood Pressure 133/80 H 133/80 H Blood Pressure Mean 97 97 Pulse Ox 96 96 Oxygen Delivery Method Nasal Cannula Nasal Cannula Oxygen Flow Rate (L/min) 10/05/24 17:00 10/05/24 18:00 10/05/24 18:41 Temperature 98.2 F 98.1 F 98.1 F Temperature Source Oral Oral Pulse Rate 79 81 81 Respiratory Rate 23 H 30 H 30 H Respiratory Effort Respiratory Depth Respiratory Pattern Blood Pressure 116/61 146/88 H 146/88 H Blood Pressure Mean 79 107 107 Pulse Ox 97 96 96 Oxygen Delivery Method Nasal Cannula Nasal Cannula Oxygen Flow Rate (L/min) 3 4 10/05/24 19:00 Temperature Temperature Source Pulse Rate 84 Respiratory Rate 19 H Respiratory Effort Respiratory Depth Respiratory Pattern Blood Pressure Blood Pressure Mean Pulse Ox 97 Oxygen Delivery Method Nasal Cannula Oxygen Flow Rate (L/min) 4 [facility] <LEFTY Ricketts - Last Filed: 10/05/24 21:08> [facility] Narrative Medical decision making narrative: Patient presenting today with nausea, dry heaving, and right-sided abdominal pain she has had since 10/02/2024. She has no reported shortness of breath but patient reports that respiratory symptoms have improved since being admitted. She is denying shortness of breath and chest pain. She did have a CT scan of the abdomen and pelvis here in the hospital that showed-a right adrenal gland lesion measuring up to 3.5 cm that has been seen on previous imaging, fecal retention in the colon consistent with constipation, bilateral renal pelvic calculi. She was given an enema in the hospital which she reports gave minimal improvement of her pain. Because her pain is not getting any better, she presents again today for evaluation. Labs obtained, she has a WBC of 14.2 which is new, sodium 138, kidneys appear near baseline given her CKD history. Bilirubin slightly elevated at 1.2, lipase unremarkable, UA shows 1+ bacteria but is contaminated with squamous cells, no nitrites. She does not have urinary symptoms to indicate UTI. She was given IV morphine and Zofran here. CT scan of the abdomen and pelvis with IV contrast was obtained, this shows a right lower abdominal wall rectus sheath hematoma, she also has a infrarenal aortic aneurysm measuring 3.7 cm. Patient reports that she is aware of this aneurysm, I did recommend that she have this followed by her PCP. She has a stable appearing right adrenal lesion that was seen on her previous CT. There is heterogeneous hypoenhancement of the kidneys bilaterally which may be an artifact from severe vascular disease, radiologist recommends correlating for renal infarct versus pyelonephritis. She does not have any urinary symptoms or UTI to suggest pyelo. On reexamination she did report improvement of her pain. I will give her a short course of oxycodone for pain, she can also take Tylenol as needed. Recommended she follow-up with her PCP. She has dialysis again on Sunday. She will be discharged home in stable condition. Lab Data Attestation: I reviewed the patient's lab results. Labs: Laboratory Results - last 24 hr 10/05/24 10/05/24 15:20 16:55 WBC 14.2 H RBC 3.36 L Hgb 11.5 L Hct 35.5 L MCV 105.7 H MCH 34.2 H MCHC 32.4 RDW Std Deviation 62.8 H RDW Coeff of Lola 16.2 H Plt Count 182 MPV 9.8 Immature Gran % (Auto) 0.800 Neut % (Auto) 91.4 H Lymph % (Auto) 3.7 L Flagler % (Auto) 4.0 Eos % (Auto) 0.0 Baso % (Auto) 0.1 Absolute Neuts (auto) 13.0 H Absolute Lymphs (auto) 0.53 L Nucleated RBC % 0.6 Sodium 130 L Potassium 4.6 Chloride 93 L Carbon Dioxide 23.0 Anion Gap 14 BUN 70 H Creatinine 4.79 H Estim Creat Clear Calc 11.21 Est GFR (MDRD) Af Amer 12 L Est GFR (MDRD) Non-Af 10 L BUN/Creatinine Ratio 14.6 Glucose 128 H Calcium 9.0 Total Bilirubin 1.20 H AST 41 H ALT 52 Alkaline Phosphatase 120 H Total Protein 7.4 Albumin 3.8 Globulin 3.6 Albumin/Globulin Ratio 1.1 Lipase 44 L Urine Color Straw Urine Clarity Sl. Cloudy Urine pH 5.0 Ur Specific [place] 1.020 Urine Protein 500 H Urine Glucose (UA) 50 H Urine Ketones Negative Urine Occult Blood 10 H Urine Nitrite Negative Urine Bilirubin 1 H Urine Urobilinogen Normal Ur Leukocyte Esterase 25 H Urine RBC 5-10 SEEN Urine WBC 5-10 SEEN Ur Squamous Epith Cells 10-25 SEEN Amorphous Sediment 1+ URATE Urine Bacteria 1+ Hyaline Casts 0-5 SEEN Urine Mucus 0 SEEN Radiography Diagnostic Testing: Clinical Impression(s) from Imaging Studies Abdomen/Pelvis CT 10/05/24 16:05 IMPRESSION: 1. Right lower abdominal wall rectus sheath hematoma. No active extravasation identified. Note is made of a chronic fluid collection along the left anterior abdominal wall, possibly due to a chronic postoperative seroma or remote hematoma. 2. Heterogeneous hypoenhancement of the kidneys bilaterally, greater on the right than the left. This may be an artifact from a severe vascular disease causing delayed flow, as images were obtained during arterial phase imaging. Other differential considerations include renal infarction or pyelonephritis. Correlation with the renal laboratory values recommended. 3. 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 4. Infrarenal aortic aneurysm measuring 3.7 cm with extensive mural thrombus present. 5. Stable appearance of a chronic right adrenal lesion measuring Reading [facility] <Reggie Quintanilla MD - Last Filed: 10/05/24 23:09> [facility] History & Record Review Discussion w/independent historian: Patient Lab Data Labs: Laboratory Results - last 24 hr 10/05/24 10/05/24 15:20 16:55 WBC 14.2 H RBC 3.36 L Hgb 11.5 L Hct 35.5 L MCV 105.7 H MCH 34.2 H MCHC 32.4 RDW Std Deviation 62.8 H RDW Coeff of Lola 16.2 H Plt Count 182 MPV 9.8 Immature Gran % (Auto) 0.800 Neut % (Auto) 91.4 H Lymph % (Auto) 3.7 L Flagler % (Auto) 4.0 Eos % (Auto) 0.0 Baso % (Auto) 0.1 Absolute Neuts (auto) 13.0 H Absolute Lymphs (auto) 0.53 L Nucleated RBC % 0.6 Sodium 130 L Potassium 4.6 Chloride 93 L Carbon Dioxide 23.0 Anion Gap 14 BUN 70 H Creatinine 4.79 H Estim Creat Clear Calc 11.21 Est GFR (MDRD) Af Amer 12 L Est GFR (MDRD) Non-Af 10 L BUN/Creatinine Ratio 14.6 Glucose 128 H Calcium 9.0 Total Bilirubin 1.20 H AST 41 H ALT 52 Alkaline Phosphatase 120 H Total Protein 7.4 Albumin 3.8 Globulin 3.6 Albumin/Globulin Ratio 1.1 Lipase 44 L Urine Color Straw Urine Clarity Sl. Cloudy Urine pH 5.0 Ur Specific Chelsea 1.020 Urine Protein 500 H Urine Glucose (UA) 50 H Urine Ketones Negative Urine Occult Blood 10 H Urine Nitrite Negative Urine Bilirubin 1 H Urine Urobilinogen Normal Ur Leukocyte Esterase 25 H Urine RBC 5-10 SEEN Urine WBC 5-10 SEEN Ur Squamous Epith Cells 10-25 SEEN Amorphous Sediment 1+ URATE Urine Bacteria 1+ Hyaline Casts 0-5 SEEN Urine Mucus 0 SEEN Radiography Diagnostic Testing: Clinical Impression(s) from Imaging Studies Abdomen/Pelvis CT 10/05/24 16:05 IMPRESSION: 1. Right lower abdominal wall rectus sheath hematoma. No active extravasation identified. Note is made of a chronic fluid collection along the left anterior abdominal wall, possibly due to a chronic postoperative seroma or remote hematoma. 2. Heterogeneous hypoenhancement of the kidneys bilaterally, greater on the right than the left. This may be an artifact from a severe vascular disease causing delayed flow, as images were obtained during arterial phase imaging. Other differential considerations include renal infarction or pyelonephritis. Correlation with the renal laboratory values recommended. 3. 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 4. Infrarenal aortic aneurysm measuring 3.7 cm with extensive mural thrombus present. 5. Stable appearance of a chronic right adrenal lesion measuring Reading [facility] Treatment and Re-Evaluation :: Dr. Quintanilla: I have personally performed a face to face assessment of the patient and have reviewed the GALO Note. I performed a substantive portion of the visit including all aspects of the following. My wong findings include: History is patient with past medical history of COPD, recently released from the hospital is actually here now for shortness of breath but for lower abdominal pain. She states that while she was in the hospital, she had enemas which improved her constipation, but she was having problems with right lower quadrant abdominal pain throughout her hospital stay. Exam is afebrile. Vital signs noted. Nontoxic-appearing. Positive tenderness to palpation right lower quadrant of abdomen. Medical Decision Making: Check labs. Check CT. Positive rectal sheath hematoma. Patient does not take blood thinners but does have end-stage renal disease. There is no extravasation noted on the CT report. I do not feel she is having active hemorrhage. She will be discharged with analgesia. Return instructions reviewed. Disposition is discharged home in stable condition. Other additions or changes: [None] Discharge Plan Triage Chief Complaint: Shortness of Breath ED Midlevel Provider: Lorin Elkins ED Provider: Reggie Quintanilla Dx/Rx/DC Orders Clinical Impression: Abdominal pain, Nausea, Hematoma of rectus sheath Instructions: Abdominal Pain, ED Hematoma Prescriptions: New metoclopramide HCl [Reglan] 10 mg tablet 10 mg PO Q6H PRN (Reason: nausea and vomiting) 3 Days Qty: 12 0RF oxycodone 5 mg tablet 5 mg PO Q6H PRN (Reason: pain) 3 Days Qty: 12 0RF No Action calcium acetate 667 mg tablet 667 mg PO TID cholecalciferol (vitamin D3) 25 mcg (1,000 unit) capsule 25 mcg PO DAILY atorvastatin 80 mg tablet 80 mg PO QHS clopidogrel 75 mg tablet 75 mg PO DAILY aspirin 81 mg tablet,delayed release (DR/EC) 81 mg PO DAILY pantoprazole 40 mg tablet,delayed release (DR/EC) 40 mg PO DAILY Mojgan-Kirk 0.8 mg tablet 1 tab PO DAILY nitroglycerin 0.4 mg tablet, sublingual 0.4 mg sublingual DAILY PRN (Reason: CHEST PAIN ) Rx Instructions: Dissolve 1 tablet under the tongue as needed for chest pain. sertraline 25 mg tablet 25 mg PO DAILY acetaminophen 325 mg capsule 650 mg PO BID PRN (Reason: PAIN ) carvedilol 12.5 mg tablet 25 mg PO Q12H furosemide 80 mg tablet 80 mg PO Q12H albuterol sulfate 2.5 mg /3 mL (0.083 %) solution for nebulization 2.5 mg continuous nebulization Q6H PRN (Reason: wheezing) sulfamethoxazole-trimethoprim 400-80 mg tablet 1 tab PO BID prednisone 20 mg tablet 40 mg PO DAILY Qty: 10 0RF Primary Care Provider: Elvin Becerra Referrals: Elvin Becerra MD [Primary Care Provider] - 5-7 Days Activity Restrictions/Additional Instructions: Your CT scan showed a rectus sheath hematoma on the right side, this is likely causing your pain. You also have a infrarenal abdominal aortic aneurysm measuring 3.7 cm. Please have this followed by your PCP. Return for any worsening of your symptoms. Print Language: Romansh Disposition Disposition: Home, Self Care Discharge Date/Time: 10/05/24 21:31
[2024-10-05] MEDS: Ondansetron 4 MG/2 ML Vial IV (15:38)
[2024-10-05] MEDS: Morphine 2 MG/ML Syringe IV ×2 (15:39→18:46)
[2024-10-05 15:40] LABS: Absolute Lymphocyte Count 0.53 X10^3/uL (0.83-4.51); Basophil# 0.01 X10^3/uL; Basophil% 0.1 % (0-1); Hematocrit 35.5 % (37-47); Hemoglobin 11.5 g/dL (12.0-15.0); Lymphocyte # 0.53 X10^3/ul (0.83-4.51); Lymphocyte % 3.7 % (19-41); Mean Corp Hgb Conc 32.4 g/dL (32-36); Mean Corpuscular Hgb 34.2 pg (27.0-32.0); Mean Corpuscular Volume 105.7 fL (81-99); Mean Platelet Vol. 9.8 fl (6.2-12.0); Monocyte# 0.57 X10^3/uL; NRBC Flagged by Analyzer 0.6 % (0-5); Neutrophil # 12.95 X10^3/uL (2.7-7.7); Neutrophil % 91.4 % (47-70); POSITIVE DIFFERENTIAL YES; Platelet Count 182 K/mm3 (150-450); RBC Distribution Width CV 16.2 % (11.6-14.6); RBC Distribution Width SD 62.8 fl (35.1-43.9); Red Blood Count 3.36 M/mm3 (4.2-5.4); White Blood Count 14.2 K/mm3 (4.4-11.0)
[2024-10-05 15:53] LABS: ALB/GLOB Ratio 1.1 RATIO (0.9-2.4); AST(SGOT) 41 U/L (15-37); Alanine Aminotransfer ALT/SGPT 52 U/L (13-56); Albumin, Serum 3.8 g/dL (3.2-5.0); Alkaline Phosphatase 120 U/L (45-117); Anion Gap 14 (5-15); BUN 70 mg/dL (7-18); BUN/Creat Ratio 14.6 RATIO (10-20); Chloride 93 mmol/L (98-107); Creatinine, Serum 4.79 mg/dL (0.55-1.02); EST Glomerular Filtration Rate 10 mL/min (>60); Est Glom Filt Rate - Afr Amer 12 mL/min (>60); Estimated Creatinine Clearance 11.21 ml/min; Globulin 3.6 g/dL (2.2-4.2); Glucose 128 mg/dL (74-106); Lipase 44 U/L (73-393); Potassium 4.6 mmol/L (3.5-5.1); Protein, Total 7.4 g/dL (6.4-8.2); Sodium Level 130 mmol/L (136-145)
--- NOTE | 2024-10-05 16:05 | CT_ITS ---
PROCEDURE: ABDOMEN/PELVIS W IV CONT ONLY REASON FOR EXAM: Right lower quadrant pain TECHNIQUE: Abdomen and pelvis CT with intravenous contrast. Multiplanar reconstructions performed. COMPARISON: 10/02/2024; 12/24/2023; 04/18/2019 FINDINGS: Lower chest: Unremarkable. Liver: Unremarkable. Biliary/gallbladder: Unremarkable. Pancreas: Unremarkable. Spleen: Unremarkable. Adrenal glands: There is a right adrenal lesion again noted measuring 3.8 cm with coarse calcifications, which appear stable in size over multiple prior exams. Kidneys: Hypoenhancement palpable right kidney is present. There are patchy areas of heterogeneous enhancement in the left kidney. A couple of punctate nonobstructive renal calculi are present bilaterally. Gastrointestinal/peritoneum: There is a diastasis of the rectus sheath at the lower anterior polyp wall containing multiple loops of bowel protruding ventrally. There are no dilated loops of bowel or abnormal bowel wall thickening.Postoperative changes are present of a partial colonic resection at the level of the rectum.The appendix is not discretely visualized.No free air or free fluid. Vascular: Foraminal aortic aneurysm is present measuring 3.7 cm. Prominent mural thrombus is present with occlusion of the aortic bifurcation and common iliac arteries bilaterally. There is distal reconstitution of the external iliac arteries via paraspinal vein deep pelvic collaterals. There are severe scattered atherosclerotic calcifications. The renal arteries are significantly diminutive in size bilaterally. Lymph nodes: No enlarged lymph nodes by CT size criteria. Pelvic organs: Unremarkable. Bladder: Unremarkable. Bones: Unremarkable. Soft tissues: The right inferior rectus sheath is asymmetrically enlarged compared to the contralateral side measuring a proximally 3 cm in diameter, likely due to the presence of a hematoma. No active extravasation is identified. An anterior abdominal wall fluid collection is again noted with rim calcifications. The collection measures 7.1 x 2.9 cm. Mild body wall edema is present at hips. CT/Abdomen/Pelvis W IV Cont ONLY IMPRESSION: 1. Right lower abdominal wall rectus sheath hematoma. No active extravasation identified. Note is made of a chronic fluid collection along the left anterior abdominal wall, possibly due to a chronic po stoperative seroma or remote hematoma. 2. Heterogeneous hypoenhancement of the kidneys bilaterally, greater on the rig ht than the left. This may be an artifact from a severe vascular disease causing delayed flow, as images were obtained during ar terial phase imaging. Other differential considerations include renal infarction or pyelonephritis. Correlation with th e renal laboratory values recommended. 3. 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 4. Infrarenal aortic aneurysm measuring 3.7 cm with extensive mural thrombus pr esent. 5. Stable appearance of a chronic right adrenal lesion measuring Reading [facility]
[2024-10-05 17:15] LABS: Mucous, Urine 0 SEEN /hpf (<or=2+)
[2024-10-05 17:20] LABS: Color, Urine Straw (Yellow); Glucose, Dipstick 50 mg/dl (Normal); Ketone-Dipstick Negative (Negative); Leukocyte Esterase-Dipstick 25 /ul (Negative); Nitrite-Dipstick Negative (Negative); Occult Blood-Urine 10 /ul (Negative); Protein-Dipstick 500 mg/dl (Negative); Urine Clarity Sl. Cloudy (Clear); Urine Urobilinogen Normal (Normal)
[2024-10-05 17:22] LABS: Urine Bilirubin Dipstick 1 mg/dL (Negative)
[2024-10-05 17:39] LABS: Bacteria 1+ /hpf (None Seen)
[2024-10-05 17:40] LABS: Amorphous Sediment 1+ URATE; Red Blood Cells-Urine 5-10 SEEN /hpf (0-5)
[2024-10-05 17:41] LABS: Hyaline Cast 0-5 SEEN /lpf (0-5); Squamous Epithelial Cells - UA 10-25 SEEN /hpf (5-10); White Blood Cells 5-10 SEEN /hpf (0-5)
--- NOTE | 2024-10-05 19:34 | ED.RN ---
called aunt for ride, unable.
== END 2024-10-05 21:31 | disposition home or self-care (01) ==
PROVIDERS: Physician Assistant; Emergency Provider Emergency Medicine; PCP Family Medicine; Visit Provider Emergency Medicine
DX: R10.9 Unspecified abdominal pain (principal); I50.9 Heart failure, unspecified; J44.9 Chronic obstructive pulmonary disease, unspecified; E11.22 Type 2 diabetes mellitus with diabetic chronic kidney disease; Z87.891 Personal history of nicotine dependence; N18.9 Chronic kidney disease, unspecified; Z90.710 Acquired absence of both cervix and uterus; E78.00 Pure hypercholesterolemia, unspecified; I25.10 Atherosclerotic heart disease of native coronary artery without angina pectoris; M79.81 Nontraumatic hematoma of soft tissue; R11.0 Nausea; I25.2 Old myocardial infarction; Z99.81 Dependence on supplemental oxygen; Z99.2 Dependence on renal dialysis; Z79.82 Long term (current) use of aspirin; Z79.899 Other long term (current) drug therapy; Z79.02 Long term (current) use of antithrombotics/antiplatelets; F41.8 Other specified anxiety disorders; Z90.49 Acquired absence of other specified parts of digestive tract; Z95.5 Presence of coronary angioplasty implant and graft
CPT/HCPCS: 96374; 96375; 96376; 99285; 74177; 80053; 81001; 83690; 85025; Q9967; A4216; J2405

== ENCOUNTER 2024-10-06 21:44 | Inpatient (IN) | payer MEDICARE, MEDICAID, SELFPAY ==
[2024-10-06 21:45] VITALS: BP 126/72; PULSE 74; RESP 15; TEMP 36.4; O2SAT 96; BMI 28.3
[2024-10-06 21:55] VITALS: O2SAT 96
--- NOTE | 2024-10-06 22:04 | EKG12_ITS ---
Test Reason : SOB Blood Pressure : */* mmHG Vent. Rate : 73 BPM Atrial Rate : 73 BPM P-R Int : 198 ms QRS Dur : 116 ms QT Int : 426 ms P-R-T Axes : 75 52 122 degrees QTcB Int : 469 ms Normal sinus rhythm Possible Left atrial enlargement ST & T wave abnormality, consider lateral ischemia Abnormal ECG Confirmed by Jason Birch ([id number]), newspaper or periodical editor DON JEFFREY ([id number]) on 10/07/2024 10:01:40 AM Referred By: Confirmed By: Jason Birch
--- NOTE | 2024-10-06 22:11 | EX.ED.DYSGE1 ---
HPI History of Present Illness Chief Complaint: Shortness of Breath Narrative Narrative: Patient is a 64-year-old female with past medical history of AAA, substance abuse, CHF, asthma on 2 L nasal cannula chronically, depression, PTSD who presented to the emerged part with a chief complaint of cough and shortness of breath. Patient states that she has not been feeling well recently and was significantly short of breath therefore she called EMS to have her brought here further evaluation management. Patient states that she was recently in the hospital and was just like go. States that if she tries to walk any distance she becomes extremely short of breath. [facility] Medical History Osteoporosis On home oxygen therapy AAA (abdominal aortic aneurysm) Bilateral pleural effusion Acute hypoxemic respiratory failure Substance abuse Diabetes Dialysis patient Sleep apnea Congestive heart failure (CHF) Myocardial infarct Coronary artery disease Migraines Asthma Kidney disease History of high cholesterol Anxiety Depression PTSD (post-traumatic stress disorder) Home Medications ?Medication ?Instructions ?Recorded ?Last Taken ?Type cholecalciferol (vitamin D3) 25 25 mcg PO DAILY SUPPLEMENT 10/02/21 09/28/24 History mcg (1,000 unit) capsule aspirin 81 mg tablet,delayed 81 mg PO DAILY HEART 11/14/22 09/28/24 History release atorvastatin 80 mg tablet 80 mg PO QHS CHOLESTEROL 11/14/22 09/28/24 History clopidogrel 75 mg tablet 75 mg PO DAILY BLOOD THINNER 11/14/22 09/28/24 History nitroglycerin 0.4 mg sublingual 0.4 mg sublingual DAILY PRN CHEST 11/14/22 Unknown History tablet PAIN pantoprazole 40 mg tablet,delayed 40 mg PO DAILY ACID REFLUX 11/14/22 09/28/24 History release vitamin B complex-vitamin C-folic 1 tab PO DAILY SUPPLEMENT 11/14/22 09/28/24 History acid 0.8 mg tablet (Mojgan-Kirk) acetaminophen 325 mg capsule 650 mg PO BID PRN PAIN 08/07/23 09/28/24 History sertraline 25 mg tablet 25 mg PO DAILY DEPRESSION 08/07/23 09/28/24 History calcium acetate 667 mg tablet 667 mg PO TID 10/24/23 09/28/24 History carvedilol 12.5 mg tablet 25 mg PO Q12H 06/02/24 09/28/24 History furosemide 80 mg tablet 80 mg PO Q12H 06/02/24 09/28/24 History albuterol sulfate 2.5 mg/3 mL 2.5 mg continuous nebulization Q6H 09/29/24 09/29/24 History (0.083 %) solution for nebulization PRN wheezing sulfamethoxazole 400 1 tab PO BID 09/29/24 09/28/24 History mg-trimethoprim 80 mg tablet prednisone 20 mg tablet 40 mg (2 x 20 mg) PO DAILY #10 tabs 10/04/24 Unknown Rx metoclopramide HCl 10 mg tablet 10 mg PO Q6H PRN nausea and 10/05/24 Unknown Rx (Reglan) vomiting 3 days #12 tabs oxycodone 5 mg tablet 5 mg PO Q6H PRN pain 3 days #12 10/05/24 Unknown Rx tabs sucroferric oxyhydroxide 500 mg 1,500 mg PO TID 10/06/24 Unknown History chewable tablet (Velphoro) Allergy/AdvReac Type Severity Reaction Status Date / Time Latex, Natural Rubber Allergy Rash Verified 10/06/24 21:45 Penicillins Allergy Rash Verified 10/06/24 21:45 Family History Other CAD (coronary artery disease) Heart disease Surgical History History of colectomy History of ligation of vein Hx of umbilical hernia repair History of arteriovenostomy for renal dialysis History of total hysterectomy History of coronary artery stent placement H/O tubal ligation History of section, classical Social History household members: none Smoking Status: Former smoker substance use type: does not use ROS ROS ED ROS Narrative Constitutional: Denies fevers, chills, headaches Eyes: Denies change in vision double vision blurry vision Cardiovascular: Denies chest pain or palpitations Respiratory: Complains of shortness of breath as well as dry cough Abdomen: Denies abdominal pain nausea vomit diarrhea : Denies any urinary symptoms Neurological: Denies numbness, weakness, tingling Musculoskeletal: Denies back pain Skin: Denies rashes or lesions EXAM Physical Exam Narrative Exam Narrative: General: Patient was lying in bed rest comfortably did not appear to be acute distress Head: Atraumatic, normocephalic Eyes: PERRL bilateral, EOMI bilaterally, no conjunctival injection noted Neck: Soft, supple, trachea midline Cardiovascular: Regular in rhythm no murmurs gallops rubs noted Respiratory: Diminished breath sounds bilaterally Abdomen: Soft, nondistended, nontender to palpation Extremities: 1+ pedal edema noted bilaterally, +4/5 strength noted in the bilateral lower extremities Neurological: Patient following commands knew that she was at [facility] years 2024 Skin: Warm, dry, patient has scattered ecchymosis noted throughout her body Const Vital Signs: 10/06/24 21:45 10/06/24 21:55 10/06/24 22:35 Temperature 97.6 F L Temperature Source Oral Pulse Rate 74 69 Respiratory Rate 15 20 H Respiratory Effort Short of Breath Respiratory Depth Shallow Respiratory Pattern Normal Blood Pressure 126/72 H Blood Pressure Mean 90 Pulse Ox 96 Oxygen Delivery Method Nasal Cannula Nasal Cannula Oxygen Flow Rate (L/min) 3 3.5 10/06/24 22:35 10/06/24 23:45 10/07/24 01:00 Temperature Temperature Source Pulse Rate 81 85 Respiratory Rate 17 17 Respiratory Effort Respiratory Depth Respiratory Pattern Blood Pressure 151/112 H 129/82 H Blood Pressure Mean 125 97 Pulse Ox 97 93 93 Oxygen Delivery Method Nasal Cannula Nasal Cannula Nasal Cannula Oxygen Flow Rate (L/min) 3 3.5 2 MDM MDM MDM Narrative Medical decision making narrative: Patient is a 64-year-old female who presented to the emerged part with chief complaint of cough and shortness of breath. On the differential diagnose includes but not limited to CHF exacerbation, pneumonia, upper respiratory infection secondary to viral etiology, asthma exacerbation. Once workup is obtained reviewed she will be reevaluated. Patient was given 3 DuoNebs and Solu-Medrol. Patient's discharge summary from September 2024 was reviewed which at that point time she was admitted for shortness of breath and wheezing with asthma exacerbation. She had a metabolic acidosis at that point time underwent dialysis during her stay and is on Lasix 80 mg twice daily. Patient CBC was significant for leukocytosis of 15,000, hemoglobin 11.3, platelet count was noted be 139. Patient's INR was only 1.2, PT 15.9, sodium was noted to be low indicating hyponatremia at 128, potassium was elevated to 5.4, creatinine elevated at 5.83 however she is on dialysis Sunday, AST ALT were 75 and 79 respectively. Patient's lipase normal at 142. Patient's urinalysis reviewed and showed no evidence of infection. Patient chest x-ray reviewed by myself and by radiology showed cardiomegaly and mild prominence of the pulmonary system no significant change. Patient is EKG reviewed and independently turbid myself showed sinus rhythm with a rate of [address] depressions noted in the lateral leads however this was compared to EKG from 09/29/2024 and was largely unchanged. Patient's echocardiogram from 10/01/2024 reviewed and showed ejection fraction of 30%. Patient's anion gap was elevated at 16, glucose of 129. The anion gap is likely secondary to her uremia needing dialysis. Patient was ambulated here in the emergency department and became hypoxic to 88% while on her baseline oxygen requirement. At this point time patient will require admission to the hospital for further evaluation management of her acute on chronic hypoxic respiratory failure likely in the setting of CHF exacerbation. Patient does not make urine therefore we will she will require dialysis for fluid removal. Discussed case with hospitalist who accept the patient for admission. Patient be given hyperkalemia cocktail as well as Bumex. Dr. Velasquez will accept patient for admission. Patient was notified is agreeable this plan all course concerns answered. Lab Data Labs: Laboratory Results - last 24 hr 10/06/24 10/06/24 22:18 23:20 WBC 15.9 H RBC 3.32 L Hgb 11.3 L Hct 33.7 L MCV 101.5 H MCH 34.0 H MCHC 33.5 RDW Std Deviation 59.8 H RDW Coeff of Lola 16.4 H Plt Count 139 L MPV 9.9 Immature Gran % (Auto) 1.600 H Neut % (Auto) 88.3 H Lymph % (Auto) 4.3 L [place] % (Auto) 5.7 Eos % (Auto) 0.0 Baso % (Auto) 0.1 Absolute Neuts (auto) 14.0 H Absolute Lymphs (auto) 0.68 L Nucleated RBC % 1.9 PT 15.9 H INR 1.2 APTT 30.5 Sodium 128 L Potassium 5.4 H Chloride 89 L Carbon Dioxide 22.0 Anion Gap 16 H BUN 88 H Creatinine 5.83 H Estim Creat Clear Calc 9.41 Est GFR (MDRD) Af Amer 9 L Est GFR (MDRD) Non-Af 8 L BUN/Creatinine Ratio 15.1 Glucose 129 H Lactic Acid 1.4 Calcium 9.2 Total Bilirubin 1.30 H AST 75 H ALT 79 H Alkaline Phosphatase 112 B-Natriuretic Peptide > 5000.0 H Total Protein 7.0 Albumin 3.6 Globulin 3.4 Albumin/Globulin Ratio 1.1 Lipase 142 Urine Color Yellow Urine Clarity Cloudy Urine pH 5.0 Ur Specific Carver 1.020 Urine Protein 500 H Urine Glucose (UA) Normal Urine Ketones Negative Urine Occult Blood 25 H Urine Nitrite Negative Urine Bilirubin 1 H Urine Urobilinogen Normal Ur Leukocyte Esterase Negative Urine RBC 0 SEEN Urine WBC 0 SEEN Ur Squamous Epith Cells 0 SEEN Amorphous Sediment 2+ Urine Bacteria 2+ Urine Mucus 0 SEEN Radiography Diagnostic Testing: Clinical Impression(s) from Imaging Studies Chest X-Ray 10/06/24 23:00 IMPRESSION: Cardiomegaly and mild prominence of the pulmonary interstitium. No significant change. Reading Location: [facility] Discharge Plan Triage Chief Complaint: Shortness of Breath ED Provider: Wyatt Ward Dx/Rx/DC Orders Clinical Impression: Acute and chronic respiratory failure with hypoxia, ESRD (end stage renal disease), CHF exacerbation, Hyperkalemia Prescriptions: No Action calcium acetate 667 mg tablet 667 mg PO TID cholecalciferol (vitamin D3) 25 mcg (1,000 unit) capsule 25 mcg PO DAILY atorvastatin 80 mg tablet 80 mg PO QHS clopidogrel 75 mg tablet 75 mg PO DAILY aspirin 81 mg tablet,delayed release (DR/EC) 81 mg PO DAILY pantoprazole 40 mg tablet,delayed release (DR/EC) 40 mg PO DAILY Mojgan-Kirk 0.8 mg tablet 1 tab PO DAILY nitroglycerin 0.4 mg tablet, sublingual 0.4 mg sublingual DAILY PRN (Reason: CHEST PAIN ) Rx Instructions: Dissolve 1 tablet under the tongue as needed for chest pain. sertraline 25 mg tablet 25 mg PO DAILY acetaminophen 325 mg capsule 650 mg PO BID PRN (Reason: PAIN ) carvedilol 12.5 mg tablet 25 mg PO Q12H furosemide 80 mg tablet 80 mg PO Q12H albuterol sulfate 2.5 mg /3 mL (0.083 %) solution for nebulization 2.5 mg continuous nebulization Q6H PRN (Reason: wheezing) sulfamethoxazole-trimethoprim 400-80 mg tablet 1 tab PO BID prednisone 20 mg tablet 40 mg PO DAILY Qty: 10 0RF metoclopramide HCl [Reglan] 10 mg tablet 10 mg PO Q6H PRN (Reason: nausea and vomiting) 3 Days Qty: 12 0RF oxycodone 5 mg tablet 5 mg PO Q6H PRN (Reason: pain) 3 Days Qty: 12 0RF Velphoro 500 mg tablet,chewable 1,500 mg PO TID Primary Care Provider: Elvin Becerra Referrals: Elvin Becerra MD [Primary Care Provider] - Print Language: Upper Sorbian Disposition Disposition: Acute Care Hospital [facility]
[2024-10-06 22:26] LABS: Absolute Lymphocyte Count 0.68 X10^3/uL (0.83-4.51); Basophil# 0.02 X10^3/uL; Basophil% 0.1 % (0-1); Hematocrit 33.7 % (37-47); Hemoglobin 11.3 g/dL (12.0-15.0); Lymphocyte # 0.68 X10^3/ul (0.83-4.51); Lymphocyte % 4.3 % (19-41); Mean Corp Hgb Conc 33.5 g/dL (32-36); Mean Corpuscular Volume 101.5 fL (81-99); Mean Platelet Vol. 9.9 fl (6.2-12.0); Monocyte% 5.7 % (0-10); NRBC Flagged by Analyzer 1.9 % (0-5); Neutrophil # 14.04 X10^3/uL (2.7-7.7); Neutrophil % 88.3 % (47-70); Platelet Count 139 K/mm3 (150-450); RBC Distribution Width CV 16.4 % (11.6-14.6); RBC Distribution Width SD 59.8 fl (35.1-43.9); Red Blood Count 3.32 M/mm3 (4.2-5.4); White Blood Count 15.9 K/mm3 (4.4-11.0)
[2024-10-06] MEDS: MethylPREDNISolone 125 MG/2 ML Vial IV (22:27)
[2024-10-06] MEDS: 0.9% Normal Saline (1000mL) 1,000 ML 999 ML IV (22:27)
[2024-10-06 22:35] VITALS: PULSE 69; RESP 20; O2SAT 96; O2SAT 97
[2024-10-06 22:35] LABS: International Normalized Ratio 1.2; Prothrombin Time (Protime)PT. 15.9 SECONDS (11.7-14.9)
[2024-10-06] MEDS: Ipratropium/Albuterol Sulfate 3 ML AMPUL.NEB INHALATION ×3 (22:35→22:36)
[2024-10-06 22:40] LABS: Partial Thromboplast Time 30.5 Seconds (24.1-36.2)
[2024-10-06 22:42] LABS: ALB/GLOB Ratio 1.1 RATIO (0.9-2.4); AST(SGOT) 75 U/L (15-37); Alanine Aminotransfer ALT/SGPT 79 U/L (13-56); Albumin, Serum 3.6 g/dL (3.2-5.0); Alkaline Phosphatase 112 U/L (45-117); Anion Gap 16 (5-15); BUN 88 mg/dL (7-18); BUN/Creat Ratio 15.1 RATIO (10-20); Calcium,Total 9.2 mg/dL (8.5-10.1); Chloride 89 mmol/L (98-107); Creatinine, Serum 5.83 mg/dL (0.55-1.02); EST Glomerular Filtration Rate 8 mL/min (>60); Est Glom Filt Rate - Afr Amer 9 mL/min (>60); Estimated Creatinine Clearance 9.41 ml/min; Globulin 3.4 g/dL (2.2-4.2); Glucose 129 mg/dL (74-106); Lipase 142 U/L (73-393); Potassium 5.4 mmol/L (3.5-5.1); Sodium Level 128 mmol/L (136-145)
[2024-10-06 22:48] LABS: Lactic Acid 1.4 mmol/L (0.4-1.9)
--- NOTE | 2024-10-06 23:00 | RAD_ITS ---
PROCEDURE: CHEST PA AND LATERAL REASON FOR EXAM: Shortness of breath. TECHNIQUE: Frontal and lateral views of the chest. COMPARISON: 09/29/2024. FINDINGS: Cardiomegaly is stable. Pulmonary vasculature is mildly prominent. No consolidation, pleural effusion, or pneumothorax is present. There are surgical clips along the right upper arm medially. RAD/Chest PA and Lateral IMPRESSION: Cardiomegaly and mild prominence of the pulmonary interstitium. No significant change. Reading Location: [facility]
[2024-10-06 23:35] LABS: Mucous, Urine 0 SEEN /hpf (<or=2+); Squamous Epithelial Cells - UA 0 SEEN /hpf (5-10); White Blood Cells 0 SEEN /hpf (0-5)
[2024-10-06 23:39] LABS: Color, Urine Yellow (Yellow); Glucose, Dipstick Normal (Normal); Ketone-Dipstick Negative (Negative); Leukocyte Esterase-Dipstick Negative /ul (Negative); Nitrite-Dipstick Negative (Negative); Occult Blood-Urine 25 /ul (Negative); Protein-Dipstick 500 mg/dl (Negative); Urine Clarity Cloudy (Clear); Urine Urobilinogen Normal (Normal)
[2024-10-06 23:45] VITALS: BP 151/112; PULSE 81; RESP 17; O2SAT 93
[2024-10-06 23:48] LABS: Amorphous Sediment 2+; Bacteria 2+ /hpf (None Seen); Red Blood Cells-Urine 0 SEEN /hpf (0-5); Urine Bilirubin Dipstick 1 mg/dL (Negative)
[2024-10-06 23:50] LABS: BNP,B-Type NATRIURETIC PEPTIDE > 5000.0 pg/mL (0-100)
[2024-10-07] VITALS (24 sets, daily range): BP systolic 107–260; BP diastolic 67–126; PULSE 72–86; RESP 12–20; TEMP 36–36.8; O2SAT 84–100; BMI 29.1; BMI 29.2
--- NOTE | 2024-10-07 01:03 | PCM.HP.STD ---
[facility] - General General Date of Admission: 10/07/24 Date of Service: 10/07/24 Chief Complaint: SOB and Wheezing. [facility] Narrative BARI OBRIEN, is a 64 F with a past medical history of essential hypertension; on carvedilol and furosemide with patient claiming to no longer be able to make urine, hyperlipidemia; on atorvastatin, overweight; with BMI of 28.3 this admission, history of Prediabetes, ESRD on HD (), CAD; s/p IN with subsequent stent on baby aspirin and clopidogrel, history of CHF, chronic hypoxic respiratory failure; on 2L NC, history of AAA, history of tobacco abuse; with subsequent asthma/COPD; on as needed albuterol, remote history of migraine headaches, history of substance abuse; with cannabis a few times per week, history of colectomy, history of umbilical hernia; s/p repair, history of atrial vein ostomy for renal dialysis, history of total hysterectomy, remote history of tubal ligation, remote history of classical , depression with anxiety and PTSD; on sertraline, GERD; on pantoprazole, osteoporosis, OA; on as needed oxycodone every 6 hours and recent admission here from September 29, 2024 to October 04, 2024 for treatment of hypoxia and cough with increasing ~1-2+ lower extremity edema with Hyperkalemia of 5.6 mmol/L present on admission patient ultimately diagnosed with AE COPD causing mildly elevated troponin due to acute cardiac strain with last echo in August 2023 which showed LVEF ~55% with moderate concentric LVH and no regional wall motion abnormalities who presents to [facility] ER complaining of shortness of breath and wheezing. Ms. Obrien reports her symptoms began approximately 1 day prior to admission with a gradual-onset of dyspnea on exertion that progressed to shortness of breath at rest. She also admits to wheezing and dry cough very similar to her previous admission so she decided to come in for further evaluation and treatment. She denies associated fever, chills, changes in vision, chest pain, palpitations, abdominal pain, nausea, vomiting, diarrhea, constipation, dysuria, headache, paresthesias, focal neurologic weakness, back pain or rash. In the ER she was diagnosed with AE COPD complicated by clinical evidence of [id number] respiratory insufficiency requiring 3.5L NC compounded by laboratory evidence of Hyponatremia of 128 mmol/L and Hyperkalemia of 5.4 mmol/L present on admission with BNP greater than 5,000 pg/mL and CXR positive for cardiomegaly and mild prominence of the pulmonary interstitium with no significant change due to suspected volume overload due to recent significant decline in urinary output and spite of loop diuretic and she was then admitted to the PCU for ongoing care for stay that is expected to extend beyond 2 midnights. [facility] Medical History Osteoporosis On home oxygen therapy AAA (abdominal aortic aneurysm) Bilateral pleural effusion Acute hypoxemic respiratory failure Substance abuse Diabetes Dialysis patient Sleep apnea Congestive heart failure (CHF) Myocardial infarct Coronary artery disease Migraines Asthma Kidney disease History of high cholesterol Anxiety Depression PTSD (post-traumatic stress disorder) Home Medications ?Medication ?Instructions ?Recorded ?Last Taken ?Type cholecalciferol (vitamin D3) 25 25 mcg PO DAILY SUPPLEMENT 10/02/21 09/28/24 History mcg (1,000 unit) capsule aspirin 81 mg tablet,delayed 81 mg PO DAILY HEART 11/14/22 09/28/24 History release atorvastatin 80 mg tablet 80 mg PO QHS CHOLESTEROL 11/14/22 09/28/24 History clopidogrel 75 mg tablet 75 mg PO DAILY BLOOD THINNER 11/14/22 09/28/24 History nitroglycerin 0.4 mg sublingual 0.4 mg sublingual DAILY PRN CHEST 11/14/22 Unknown History tablet PAIN pantoprazole 40 mg tablet,delayed 40 mg PO DAILY ACID REFLUX 11/14/22 09/28/24 History release vitamin B complex-vitamin C-folic 1 tab PO DAILY SUPPLEMENT 11/14/22 09/28/24 History acid 0.8 mg tablet (Mojgan-Kirk) acetaminophen 325 mg capsule 650 mg PO BID PRN PAIN 08/07/23 09/28/24 History sertraline 25 mg tablet 25 mg PO DAILY DEPRESSION 08/07/23 09/28/24 History calcium acetate 667 mg tablet 667 mg PO TID 10/24/23 09/28/24 History carvedilol 12.5 mg tablet 25 mg PO Q12H 06/02/24 09/28/24 History furosemide 80 mg tablet 80 mg PO Q12H 06/02/24 09/28/24 History albuterol sulfate 2.5 mg/3 mL 2.5 mg continuous nebulization Q6H 09/29/24 09/29/24 History (0.083 %) solution for nebulization PRN wheezing sulfamethoxazole 400 1 tab PO BID 09/29/24 09/28/24 History mg-trimethoprim 80 mg tablet prednisone 20 mg tablet 40 mg (2 x 20 mg) PO DAILY #10 tabs 10/04/24 Unknown Rx metoclopramide HCl 10 mg tablet 10 mg PO Q6H PRN nausea and 10/05/24 Unknown Rx (Reglan) vomiting 3 days #12 tabs oxycodone 5 mg tablet 5 mg PO Q6H PRN pain 3 days #12 10/05/24 Unknown Rx tabs sucroferric oxyhydroxide 500 mg 1,500 mg PO TID 10/06/24 Unknown History chewable tablet (Velphoro) Allergy/AdvReac Type Severity Reaction Status Date / Time Latex, Natural Rubber Allergy Rash Verified 10/06/24 21:45 Penicillins Allergy Rash Verified 10/06/24 21:45 Family History Other CAD (coronary artery disease) Heart disease Surgical History History of colectomy History of ligation of vein Hx of umbilical hernia repair History of arteriovenostomy for renal dialysis History of total hysterectomy History of coronary artery stent placement H/O tubal ligation History of section, classical Social History household members: none Smoking Status: Former smoker substance use type: does not use ROS ROS Narrative Review of Systems: Constitutional: Patient denies fever or chills. Eyes: Patient denies changes in vision or discharge from eyes. ENT: Patient denies runny nose, sore throat or ear pain. Resp: Patient admits to shortness of breath, dry cough and wheezing as per HPI. CV: Patient admits to ~1+ bilateral lower extremity edema but she denies chest pain, palpitations or heart racing. GI: Patient denies abdominal pain, nausea, vomiting, diarrhea or constipation. : Patient admits to significantly decreased urinary output in spite of taking furosemide as per HPI. She denies dysuria, hematuria or urinary frequency. MSK: Patient denies arthralgias or myalgias. Skin: Patient denies rash, abscess, wounds or jaundice. Psych: Patient denies symptoms of uncontrolled depression or anxiety. Neuro: Patient denies headache, paresthesias or focal neurologic deficits. Allergy: Patient denies lip swelling, tongue swelling or urticaria. Hematology: Patient denies easy bleeding or easy bruisability. Endocrinology: Patient denies polyuria, polydipsia or polyphagia. 14 point review of systems otherwise negative except for positives noted above in HPI. Vital Signs Vital Signs Vital Signs: 10/06/24 21:45 10/06/24 21:55 10/06/24 22:35 Temperature 97.6 F L Temperature Source Oral Pulse Rate 74 69 Respiratory Rate 15 20 H Respiratory Effort Short of Breath Respiratory Depth Shallow Respiratory Pattern Normal Blood Pressure 126/72 H Blood Pressure Mean 90 Pulse Ox 96 Oxygen Delivery Method Nasal Cannula Nasal Cannula Oxygen Flow Rate (L/min) 3 3.5 10/06/24 22:35 10/06/24 23:45 10/07/24 01:00 Temperature Temperature Source Pulse Rate 81 85 Respiratory Rate 17 17 Respiratory Effort Respiratory Depth Respiratory Pattern Blood Pressure 151/112 H 129/82 H Blood Pressure Mean 125 97 Pulse Ox 97 93 93 Oxygen Delivery Method Nasal Cannula Nasal Cannula Nasal Cannula Oxygen Flow Rate (L/min) 3 3.5 2 Weight Weight: 165 lb 2.02 oz Body Mass Index (BMI) 28.3 Physical Exam Const alert, oriented x3 and average body habitus Constitutional Narrative: Mild distress noted with patient chronically ill in appearance. General Appearance: cooperative HEENT normocephalic, head/scalp atraumatic, hearing grossly normal bilaterally and moist oral mucous membranes Eyes PERRL, EOMs intact bilaterally and conjunctivae normal Neck no lymphadenopathy and supple Resp Resp Narrative: Diminished breath sounds throughout with scattered wheezes. Auscultation: wheezes Cardio regular rate and regular rhythm GI normal to inspection, nondistended, normoactive bowel sounds, soft to palpation, non-tender and non-distended Extremity Extremity Narrative: ~1+ bilateral lower extremity pitting edema. +4/5 strength noted in bilateral lower extremities. Skin Skin Narrative: Patient has no evidence of rash, abscess, wounds or jaundice. Neuro oriented x3, CN's II-XII intact bilaterally, moves all extremities and no focal motor deficits Sensorium / Orientation: awake, alert, oriented to person, oriented to place and oriented to time Speech: speech normal Psych affect normal Results Medical Records Data Attestation: I reviewed the patient's medical records Lab / Micro Data Attestation: I reviewed the patient's lab results. 10/07/24 03:23 10/07/24 03:23 Labs: Laboratory Results - last 24 hr 10/06/24 22:18: WBC 15.9 H, RBC 3.32 L, Hgb 11.3 L, Hct 33.7 L, MCV 101.5 H, MCH 34.0 H, MCHC 33.5, RDW Std Deviation 59.8 H, RDW Coeff of Lola 16.4 H, Plt Count 139 L, MPV 9.9, Immature Gran % (Auto) 1.600 H, Neut % (Auto) 88.3 H, Lymph % (Auto) 4.3 L, [place] % (Auto) 5.7, Eos % (Auto) 0.0, Baso % (Auto) 0.1, Absolute Neuts (auto) 14.0 H, Absolute Lymphs (auto) 0.68 L, Nucleated RBC % 1.9, PT 15.9 H, INR 1.2, APTT 30.5, Sodium 128 L, Potassium 5.4 H, Chloride 89 L, Carbon Dioxide 22.0, Anion Gap 16 H, BUN 88 H, Creatinine 5.83 H, Estim Creat Clear Calc 9.41, Est GFR (MDRD) Af Amer 9 L, Est GFR (MDRD) Non-Af 8 L, BUN/Creatinine Ratio 15.1, Glucose 129 H, Lactic Acid 1.4, Calcium 9.2, Total Bilirubin 1.30 H, AST 75 H, ALT 79 H, Alkaline Phosphatase 112, B-Natriuretic Peptide > 5000.0 H, Total Protein 7.0, Albumin 3.6, Globulin 3.4, Albumin/Globulin Ratio 1.1, Lipase 142 10/06/24 23:20: Urine Color Yellow, Urine Clarity Cloudy, Urine pH 5.0, Ur Specific [place] 1.020, Urine Protein 500 H, Urine Glucose (UA) Normal, Urine Ketones Negative, Urine Occult Blood 25 H, Urine Nitrite Negative, Urine Bilirubin 1 H, Urine Urobilinogen Normal, Ur Leukocyte Esterase Negative, Urine RBC 0 SEEN, Urine WBC 0 SEEN, Ur Squamous Epith Cells 0 SEEN, Amorphous Sediment 2+, Urine Bacteria 2+, Urine Mucus 0 SEEN Imaging Radiology Impression Chest X-Ray 10/06/24 23:00 IMPRESSION: Cardiomegaly and mild prominence of the pulmonary interstitium. No significant change. Reading Location: [facility] Assessment & Plan Assessment/Plan (1) COPD exacerbation: (2) CHF exacerbation: QUALIFIERS: Heart failure type: unspecified Qualified Code(s): I50.9 - Heart failure, unspecified (3) Hyperkalemia: (4) Hyponatremia: (5) Respiratory insufficiency: (6) Essential hypertension: (7) ESRD (end stage renal disease) on dialysis: (8) Decreased urination: PLAN: Plan 1. AE Asthma/COPD - Admit to PCU. Continue IV Solu-Medrol and add empiric IV doxycycline. Continue scheduled and as needed nebulizers. 2. AE chronic CHF with preserved LVEF; evidenced by elevated BNP greater than 5,000 pg/mL and ~1+ bilateral lower extremity pitting edema complicating #1 - Give bumetanide IV in an effort to increase UOP. Follow strict I's and O's. Recheck echocardiogram to evaluate LVEF since it has been over 1 year since her previous most recent study. 3. Mogya-[id number] respiratory insufficiency attributable to #1 & #2 - Wean additional supplemental oxygen as possible. 4. Hyponatremia of 128 mmol/L compounding #1 - #3 - Give NS IVF at KVO plus diuresis with bumetanide and effort to dilute urine. Check serum and urine osmolality. Recheck level daily to follow trend. 5. Hyperkalemia of 5.4 mmol/L present on admission in the setting of known ESRD on HD with recent sharp decrease in urinary output in spite of taking Lasix adding to the medical complexity of #1 - #4 - Patient treated with IV insulin and IV dextrose plus IV bumetanide and calcium gluconate IV. Recheck level daily to follow trend. 6. Recent admission here from September 29, 2024 to October 04, 2024 for treatment of hypoxia and cough with increasing ~1-2+ lower extremity edema with Hyperkalemia of 5.6 mmol/L present on admission patient ultimately diagnosed with AE COPD causing mildly elevated troponin due to acute cardiac strain with last echo in August 2023 which showed LVEF ~55% with moderate concentric LVH and no regional wall motion abnormalities - Noted with similar pattern noted this admission suggesting possible indiscretion with fluid intake. 7. Essential Hypertension; on carvedilol and furosemide with patient claiming to no longer be able to make urine - Resume carvedilol as previous plus start on IV bumetanide in an effort to stimulate increased UOP. Give hydralazine IV as needed for systolic blood pressure greater than 160 mmHg. 8. Hyperlipidemia; on atorvastatin - Maintain statin as previous. 9. Overweight; with BMI of 28.3 this admission - Weight loss will be recommended. Check TSH. 10. History of Prediabetes - Check hemoglobin A1c this admission to objectively confirm diabetic status. 11. CAD; s/p IN with subsequent stent on baby aspirin and clopidogrel - Resume baby aspirin and complete p.o. previous. Serialize troponin. 12. History of AAA - Apparently stable. Check abdominal ultrasound to reassess status. 13. Remote history of migraine headaches - Noted with no recent complaints of headache. 14. History of substance abuse; with cannabis a few times per week - Cannabis Cessation will be strongly encouraged. 15. History of colectomy - Noted. 16. History of umbilical hernia; s/p repair - Noted. 17. History of atrial vein ostomy for renal dialysis - Noted. 18. History of total hysterectomy - Noted. 19. Remote history of tubal ligation and classical - Noted for the sake of completeness. 20. Depression with anxiety and PTSD; on sertraline - Continue sertraline as previous. Give below-dose Xanax as needed for breakthrough symptoms. 21. GERD; on pantoprazole - Maintain PPI. 22. Osteoporosis - Stable. 23. OA; on as needed oxycodone every 6 hours - Resume oxycodone as needed for severe (level 6-10/10) pain. 24. DVT prophylaxis - Heparin 5,000 units SQ twice daily plus SCDs. Total time: Approximately (but not less than) 75 minutes. Charges/Coding Visit Charges Inpatient E&M: 52032 Init Hosp L3
[2024-10-07] MEDS: Bumetanide 1 MG/4 ML Vial IV (02:12)
[2024-10-07] MEDS: Insulin Lispro 10 UNIT in Syringe 0 ML 6 UNIT IV (02:18)
[2024-10-07] MEDS: Dextrose 10%-Water 250 ML 999 ML IV (02:40)
[2024-10-07] MEDS: Calcium Gluconate IV 2 GM in 0.9% Normal Saline (100mL Bag) 100 ML IV (03:04)
[2024-10-07 03:37] LABS: Absolute Lymphocyte Count 0.27 X10^3/uL (0.83-4.51); Absolute Neutrophil Count 14.6 X10^3/uL (2.0-7.7); Basophil# 0.04 X10^3/uL; Basophil% 0.3 % (0-1); Hematocrit 33.9 % (37-47); Lymphocyte # 0.27 X10^3/ul (0.83-4.51); Lymphocyte % 1.7 % (19-41); Mean Corp Hgb Conc 32.4 g/dL (32-36); Mean Corpuscular Hgb 34.4 pg (27.0-32.0); Mean Corpuscular Volume 105.9 fL (81-99); Mean Platelet Vol. 10.1 fl (6.2-12.0); Monocyte# 0.46 X10^3/uL; NRBC Flagged by Analyzer 0.8 % (0-5); Neutrophil # 14.57 X10^3/uL (2.7-7.7); POSITIVE DIFFERENTIAL YES; Platelet Count 138 K/mm3 (150-450); RBC Distribution Width CV 16.8 % (11.6-14.6); RBC Distribution Width SD 63.9 fl (35.1-43.9); White Blood Count 15.5 K/mm3 (4.4-11.0)
[2024-10-07 04:06] LABS: ALB/GLOB Ratio 0.9 RATIO (0.9-2.4); AST(SGOT) 73 U/L (15-37); Alanine Aminotransfer ALT/SGPT 79 U/L (13-56); Albumin, Serum 3.4 g/dL (3.2-5.0); Alkaline Phosphatase 108 U/L (45-117); Anion Gap 18 (5-15); BUN 90 mg/dL (7-18); BUN/Creat Ratio 15.4 RATIO (10-20); Calcium,Total 8.8 mg/dL (8.5-10.1); Chloride 90 mmol/L (98-107); Creatinine, Serum 5.84 mg/dL (0.55-1.02); EST Glomerular Filtration Rate 8 mL/min (>60); Est Glom Filt Rate - Afr Amer 9 mL/min (>60); Estimated Creatinine Clearance 8.82 ml/min; Globulin 3.7 g/dL (2.2-4.2); Glucose 181 mg/dL (74-106); Magnesium 2.5 mg/dL (1.6-2.6); Phosphorus 8.5 mg/dL (2.5-4.9); Potassium 5.3 mmol/L (3.5-5.1); Protein, Total 7.1 g/dL (6.4-8.2); Sodium Level 125 mmol/L (136-145); Troponin-I HS 209 pg/mL (3.0-54.0)
[2024-10-07 04:32] LABS: Osmolality, Serum 305 mOsm/KG (280-301)
[2024-10-07 04:32] LABS: Osmolality, Urine 318 mOsm/KG
[2024-10-07] MEDS: 0.9% Normal Saline (1000mL) 1,000 ML 30 ML IV (04:54)
[2024-10-07] MEDS: Bumetanide 1 MG/4 ML Vial 2 MG IV ×3 (04:54→22:04)
[2024-10-07] MEDS: 0.9% Saline Lock 10 ML Syringe IV ×3 (04:55→21:38)
[2024-10-07 06:01] LABS: Blood Gas Specimen Type VEN; O2 Delivery Device Cannula; SITE VENOUS; VBG BASE EXCESS -8 mmol/L (-1.0-3.5); VBG Bicarbonate 19 mmol/L (22-26); VBG PO2 35 mmHg (25-40); VBG SO2 60 % (50-70); VBG TCO2 20 mmol/L (23-33); VBG pCO2 39.1 mmHg (41-51); VBG pH 7.29 (7.32-7.42)
--- NOTE | 2024-10-07 06:50 | CPS ---
Pt declined I.S. & PEP therapy, says not to bring into her room.
[2024-10-07] MEDS: Albuterol 2.5 MG/3 ML VIAL.NEB. INHALATION ×3 (07:22→19:16)
[2024-10-07] MEDS: Heparin 10,000 UNITS/10 ML Vial 3000 UNITS IV (09:07)
[2024-10-07] MEDS: PureFlow B 2K Dialysis Soln 1 BAG 6 BAG PF (09:08)
[2024-10-07] MEDS: 0.9% Normal Saline 1,000 ML IV.SOLN. 1000 ML OPERA.SITE (09:08)
--- NOTE | 2024-10-07 10:00 | CASEMGMT ---
JOHAN HAYES chart review: Patient was admitted 09/29-10/04/24 for COPD exacerbation. See assessment from 09/30/24. Patient was discharged to home with [facility] setup. Patient returned to [facility] ED on 10/05 and 10/06 and was admitted for acute exacerbation of asthma, COPD, and CHF. Patient returned prior to follow-up appts and [facility] start of care. JOHAN HAYES in to patient room to discuss needs at discharge. FREDDY Pearson from [facility] at bedside discussing [facility]. Patient states she is not agreeable to Assisted Living as she does not want to pay for assisted living expenses. JOHAN HAYES discuss with patient limitations for caring for herself and benefit of SNF for rehab. Patient voiced concern regarding her cats being fed. Lili offered to call patient's friend Vesna if she could help feed patient's cats. Patient states she would be agreeable to SNF, JOHAN HAYES provided patient with list. Lili states that she called Vesna and she is agreeable to feed patient's cats, patient voiced appreciation. JOHAN HAYES requested patient to review list and provided preferences. Patient voiced understanding and had no further questions or concerns. JOHAN HAYES updated SW regarding request for SNF.
--- NOTE | 2024-10-07 10:21 | CASEMGMT ---
Discharge Planning A list of?SNF providers including quality and resource use data and consistent with the patient's preferred geographic region, medical needs, and insurance network was created in [employer] Guide.? This list was provided to the RN FREDDY. Alivia Burrell, Discharge Planning Asst.
[2024-10-07 10:32] LABS: Hemoglobin A1c 6.5 % (3.8-5.6)
--- NOTE | 2024-10-07 11:00 | CASEMGMT ---
RN CM updated by danyell that patient has chosen SNF facilities. RN CM to patient's room. 1st choice is [facility], [address] RN FREDDY updated SW.
--- NOTE | 2024-10-07 12:03 | CASEMGMT ---
Addendum entered by Alivia Burrell 10/07/24 12:09: Avenue declined d/t no bed availability. SW updated. Alivia Burrell DC Planning Asst. Original Note: Referral sent to [facility] [place]. Alivia Burrell DC Planning Asst.
--- NOTE | 2024-10-07 12:14 | CASEMGMT ---
Per RN CM patient is agreeable to SNF. Patient normally gets transported to dialysis by [facility]. NIXON called [facility] and inquired if they are able to transport patient to dialysis if patient goes to a senior living. NIXON spoke with Michelle. Michelle said patient's transport is currently paid for by [facility]. [facility] will not cover transport if patient goes to a facility. Michelle did say that if patient goes to a facility the facility can call [facility] and set up transport. [facility] would more than likely set it up with them. Michelle even said if the facility has questions they can call [facility] and they can walk them through the process of calling [facility]. NIXON thanked Michelle. Naty Lei [employer]
--- NOTE | 2024-10-07 12:43 | PCM.CONS.R ---
Assessment & Plan Assessment/Plan (1) ESRD (end stage renal disease) on dialysis: (2) COPD exacerbation: (3) Hyperkalemia: PLAN: Plan ESRD on hemodialysis Sunday at [facility], EDW 68.7. Last dialysis was Sunday in hospital setting. Patient tolerated dialysis today over 4 hours on 2K bath with 3.5 L fluid removal. Patient reports breathing has improved. Likely plan next dialysis for with fluid removal as patient can tolerate. Patient has history of anemia of chronic disease, hemoglobin is 11.0. No need for SANTINO with dialysis today. Will monitor hemoglobin trends. For acute exacerbation COPD she is receiving IV steroids, oral antibiotics and breathing treatments. Also attempt to remove fluid with dialysis as patient can tolerate. Further orders forthcoming as hospitalization evolves. HPI Consult Data Date of Consult: 10/07/24 HPI Narrative HPI Narrative: BARI LAUGHLIN, is a 64 F who presented to the emergency room with complaints of shortness of breath, admitted for acute exacerbation COPD, asthma, and acute on chronic respiratory insufficiency. Nephrology consulted as patient has history of ESRD and is on hemodialysis. Patient last dialyzed Sunday in the hospital as she was admitted for acute exacerbation COPD last week. Patient underwent hemodialysis today and tolerated 3.5 L fluid removal. Denied any cramping with HD today. Denies any recent fevers at home. [facility] Medical History Osteoporosis On home oxygen therapy AAA (abdominal aortic aneurysm) Bilateral pleural effusion Acute hypoxemic respiratory failure Substance abuse Diabetes Dialysis patient Sleep apnea Congestive heart failure (CHF) Myocardial infarct Coronary artery disease Migraines Asthma Kidney disease History of high cholesterol Anxiety Depression PTSD (post-traumatic stress disorder) Home Medications ?Medication ?Instructions ?Recorded ?Last Taken ?Type cholecalciferol (vitamin D3) 25 25 mcg PO DAILY SUPPLEMENT 10/02/21 09/28/24 History mcg (1,000 unit) capsule aspirin 81 mg tablet,delayed 81 mg PO DAILY HEART 11/14/22 09/28/24 History release atorvastatin 80 mg tablet 80 mg PO QHS CHOLESTEROL 11/14/22 09/28/24 History clopidogrel 75 mg tablet 75 mg PO DAILY BLOOD THINNER 11/14/22 09/28/24 History nitroglycerin 0.4 mg sublingual 0.4 mg sublingual DAILY PRN CHEST 11/14/22 Unknown History tablet PAIN pantoprazole 40 mg tablet,delayed 40 mg PO DAILY ACID REFLUX 11/14/22 09/28/24 History release vitamin B complex-vitamin C-folic 1 tab PO DAILY SUPPLEMENT 11/14/22 09/28/24 History acid 0.8 mg tablet (Mojgan-Kirk) acetaminophen 325 mg capsule 650 mg PO BID PRN PAIN 08/07/23 09/28/24 History sertraline 25 mg tablet 25 mg PO DAILY DEPRESSION 08/07/23 09/28/24 History calcium acetate 667 mg tablet 667 mg PO TID 10/24/23 09/28/24 History carvedilol 12.5 mg tablet 25 mg PO Q12H 06/02/24 09/28/24 History furosemide 80 mg tablet 80 mg PO Q12H 06/02/24 09/28/24 History albuterol sulfate 2.5 mg/3 mL 2.5 mg continuous nebulization Q6H 09/29/24 09/29/24 History (0.083 %) solution for nebulization PRN wheezing sulfamethoxazole 400 1 tab PO BID 09/29/24 09/28/24 History mg-trimethoprim 80 mg tablet prednisone 20 mg tablet 40 mg (2 x 20 mg) PO DAILY #10 tabs 10/04/24 Unknown Rx metoclopramide HCl 10 mg tablet 10 mg PO Q6H PRN nausea and 10/05/24 Unknown Rx (Reglan) vomiting 3 days #12 tabs oxycodone 5 mg tablet 5 mg PO Q6H PRN pain 3 days #12 10/05/24 Unknown Rx tabs sucroferric oxyhydroxide 500 mg 1,500 mg PO TID 10/06/24 Unknown History chewable tablet (Velphoro) Allergy/AdvReac Type Severity Reaction Status Date / Time Latex, Natural Rubber Allergy Rash Verified 10/06/24 21:45 Penicillins Allergy Rash Verified 10/06/24 21:45 Family History Other CAD (coronary artery disease) Heart disease Surgical History History of colectomy History of ligation of vein Hx of umbilical hernia repair History of arteriovenostomy for renal dialysis History of total hysterectomy History of coronary artery stent placement H/O tubal ligation History of section, classical Social History household members: none Smoking Status: Former smoker substance use type: does not use ROS ROS Narrative as in HPI Physical Exam Narrative Alert and oriented x 3, no apparent distress S1, S2, RRR Diminished breath sounds with coarse productive cough Abdomen soft, nontender AV fistula right forearm positive thrill and bruit Trace edema bilateral LE Lab / Micro Data 10/07/24 03:23 10/07/24 03:23 Labs: Laboratory Results - last 24 hr 10/06/24 22:18: WBC 15.9 H, RBC 3.32 L, Hgb 11.3 L, Hct 33.7 L, MCV 101.5 H, MCH 34.0 H, MCHC 33.5, RDW Std Deviation 59.8 H, RDW Coeff of Lola 16.4 H, Plt Count 139 L, MPV 9.9, Immature Gran % (Auto) 1.600 H, Neut % (Auto) 88.3 H, Lymph % (Auto) 4.3 L, Worth % (Auto) 5.7, Eos % (Auto) 0.0, Baso % (Auto) 0.1, Absolute Neuts (auto) 14.0 H, Absolute Lymphs (auto) 0.68 L, Nucleated RBC % 1.9, PT 15.9 H, INR 1.2, APTT 30.5, Sodium 128 L, Potassium 5.4 H, Chloride 89 L, Carbon Dioxide 22.0, Anion Gap 16 H, BUN 88 H, Creatinine 5.83 H, Estim Creat Clear Calc 9.41, Est GFR (MDRD) Af Amer 9 L, Est GFR (MDRD) Non-Af 8 L, BUN/Creatinine Ratio 15.1, Glucose 129 H, Lactic Acid 1.4, Calcium 9.2, Total Bilirubin 1.30 H, AST 75 H, ALT 79 H, Alkaline Phosphatase 112, B-Natriuretic Peptide > 5000.0 H, Total Protein 7.0, Albumin 3.6, Globulin 3.4, Albumin/Globulin Ratio 1.1, Lipase 142 10/06/24 23:20: Urine Color Yellow, Urine Clarity Cloudy, Urine pH 5.0, Ur Specific Lenora 1.020, Urine Protein 500 H, Urine Glucose (UA) Normal, Urine Ketones Negative, Urine Occult Blood 25 H, Urine Nitrite Negative, Urine Bilirubin 1 H, Urine Urobilinogen Normal, Ur Leukocyte Esterase Negative, Urine RBC 0 SEEN, Urine WBC 0 SEEN, Ur Squamous Epith Cells 0 SEEN, Amorphous Sediment 2+, Urine Bacteria 2+, Urine Mucus 0 SEEN, Urine Osmolality 318 10/07/24 03:23: WBC 15.5 H, RBC 3.20 L, Hgb 11.0 L, Hct 33.9 L, MCV 105.9 H, MCH 34.4 H, MCHC 32.4, RDW Std Deviation 63.9 H, RDW Coeff of Lola 16.8 H, Plt Count 138 L, MPV 10.1, Immature Gran % (Auto) 1.000 H, Neut % (Auto) 94.0 H, Lymph % (Auto) 1.7 L, Worth % (Auto) 3.0, Eos % (Auto) 0.0, Baso % (Auto) 0.3, Absolute Neuts (auto) 14.6 H, Absolute Lymphs (auto) 0.27 L, Nucleated RBC % 0.8, Sodium 125 L, Potassium 5.3 H, Chloride 90 L, Carbon Dioxide 16.0 L, Anion Gap 18 H, BUN 90 H, Creatinine 5.84 H, Estim Creat Clear Calc 8.82, Est GFR (MDRD) Af Amer 9 L, Est GFR (MDRD) Non-Af 8 L, BUN/Creatinine Ratio 15.4, Glucose 181 H, Hemoglobin A1c 6.5 H, Serum Osmolality 305 H, Calcium 8.8, Phosphorus 8.5 H, Magnesium 2.5, Total Bilirubin 1.20 H, AST 73 H, ALT 79 H, Alkaline Phosphatase 108, Troponin I High Sens 209 H*, Total Protein 7.1, Albumin 3.4, Globulin 3.7, Albumin/Globulin Ratio 0.9, TSH 7.170 H ABG Data ABG results: ABG 10/07/24 05:58 Specimen Type SORAYA Sample Site VENOUS O2 % 3.0 VBG pH 7.29 L VBG pO2 35 VBG HCO3 19 L VBG Total CO2 20 L VBG O2 Sat (Calc) 60 VBG Base Excess -8 L POC Mix VBG pCO2 Pt Tmp 39.1 L O2 Delivery Device Cannula Imaging Radiology Impression Chest X-Ray 10/06/24 23:00 IMPRESSION: Cardiomegaly and mild prominence of the pulmonary interstitium. No significant change. Reading Location: [facility]
[2024-10-07] MEDS: Heparin Injection (Vial) 5,000 UNIT/ML VIAL 5000 UNIT SC ×2 (12:58→22:01)
[2024-10-07] MEDS: Doxycycline 100 MG in 0.9% Normal Saline (250mL Bag) 250 ML 250 MG IV ×2 (12:58→22:19)
[2024-10-07] MEDS: Clopidogrel Bisulfate 75 MG Tablet PO (12:59)
[2024-10-07] MEDS: Folic Acid/Vitamin B Comp W-C 1 Capsule 1 CAP PO (12:59)
[2024-10-07] MEDS: Aspirin E.C. 81 MG Tablet PO (12:59)
[2024-10-07] MEDS: Carvedilol 25 MG Tablet PO ×2 (12:59→21:38)
[2024-10-07] MEDS: Cholecalciferol (VIT D3) 25 MCG TABLET (1,000 UNITS) PO (13:00)
[2024-10-07] MEDS: Sertraline 50 MG Tablet 25 MG PO (13:00)
[2024-10-07] MEDS: Pantoprazole Sodium 40 MG Tablet PO (13:00)
[2024-10-07] MEDS: MethylPREDNISolone 125 MG/2 ML Vial 60 MG IV ×2 (13:00→21:40)
[2024-10-07] MEDS: Calcium Acetate 667 MG Capsule PO ×2 (13:02→16:30)
--- NOTE | 2024-10-07 13:07 | CHAPLAIN ---
Type of Pastoral Visit _x__ Initial Visit ___ Follow-up Visit ___ On-call Visit ___ General Patient Visit ___ Spiritual Assessment ___ Family Conference ___ Bereavement ___ Rapid Response ___ Code Blue ___ Other (describe below) Pastoral Care Referral From _x__ Patient ___ Family ___ Nurse ___ Physician ___ Senior Instrumentation Engineer ___ Electronic Organ Mechanic ___ Other (describe below) Sacrament/Intervention _x__ Active listening ___ Anointing ___ Yazidi ___ Bereavement ___ Communion _x__ Marci exploration ___ ___ Life review _x__ Prayer ___ Reconciliation ___ Sacrament of Sick _x__ Supportive presence ___ Wedding ___ Other (describe below) Pastoral Comments patient is getting dialysis; pt was just seen last week in a previous admission; immediately the patient talks about her return, how glad she is to see the electrical service technician, and expresses her marci in God; pt is talkative about her experiences and 'knowing that God takes care of me just has he has in the past'; pt expresses her ideas of marci and life; pt welcomes prayer and presence
[2024-10-07] MEDS: Acetaminophen 325 MG Tablet 650 MG PO (13:17)
--- NOTE | 2024-10-07 15:07 | CASEMGMT ---
Referral sent to [facility]. They declined d/t med costs. SW updated. Alivia Burrell DC Planning Asst.
--- NOTE | 2024-10-07 15:15 | CASEMGMT ---
SW spoke with patient and let her know [facility] is full and [facility] is not able to take her. Patient looked through the list and said [facility] would [facility] her next choice as she wants to stay in [place]. NIXON told patient SW will work on a referral. NIXON told patient that SW will likely follow up with her tomorrow. Naty PHAM
--- NOTE | 2024-10-07 15:16 | CASEMGMT ---
Addendum entered by Alivia Burrell 10/08/24 09:59: [facility] has accepted. Precert cannot be started at this time as pt has not been eval'd by therapy yet. Alivia Burrell DC Planning Asst. Original Note: Referral sent to [facility]. Alivia Burrell DC Planning Asst.
--- NOTE | 2024-10-07 15:46 | CASEMGMT ---
SW spoke with patient as she triggered SDOH for transportation and utilities. SW spoke with patient regarding same issues last week. Patient stated she still has the resources. Naty PHAM
--- NOTE | 2024-10-07 20:45 | PCM.HOSP.N ---
Hospitalist Note Patient was seen and examined briefly today, she underwent dialysis today, she is currently medically stable on 2 L of oxygen. According to case management, patient will need placement in a snf facility, it appears that the patient is noncompliant with her medications at home. Patient will be seen by PT and OT.
[2024-10-07] MEDS: Atorvastatin Calcium 80 MG Tablet PO (21:38)
[2024-10-08] VITALS (7 sets, daily range): BP systolic 106–130; BP diastolic 74–80; PULSE 56–86; RESP 15–20; TEMP 36.1–36.7; O2SAT 94–100
[2024-10-08] MEDS: Phenol/Sodium Phenolate 180ML 3 SPRAY MUCOUS MEM ×3 (03:05→22:37)
[2024-10-08] MEDS: Albuterol 2.5 MG/3 ML VIAL.NEB. INHALATION ×3 (06:49→19:55)
[2024-10-08] MEDS: Aspirin E.C. 81 MG Tablet PO (08:20)
[2024-10-08] MEDS: Calcium Acetate 667 MG Capsule PO ×3 (08:20→16:34)
[2024-10-08] MEDS: Sertraline 50 MG Tablet 25 MG PO (08:24)
[2024-10-08] MEDS: Pantoprazole Sodium 40 MG Tablet PO (08:24)
[2024-10-08] MEDS: Heparin Injection (Vial) 5,000 UNIT/ML VIAL 5000 UNIT SC ×2 (08:24→22:51)
[2024-10-08] MEDS: Folic Acid/Vitamin B Comp W-C 1 Capsule 1 CAP PO (08:25)
[2024-10-08] MEDS: Clopidogrel Bisulfate 75 MG Tablet PO (08:25)
[2024-10-08] MEDS: Cholecalciferol (VIT D3) 25 MCG TABLET (1,000 UNITS) PO (08:25)
[2024-10-08] MEDS: Carvedilol 25 MG Tablet PO ×2 (08:29→22:53)
[2024-10-08] MEDS: Acetaminophen 325 MG Tablet 650 MG PO (08:39)
[2024-10-08] MEDS: Bumetanide 1 MG/4 ML Vial 2 MG IV ×2 (08:40→22:51)
[2024-10-08] MEDS: MethylPREDNISolone 125 MG/2 ML Vial 60 MG IV ×2 (08:41→22:52)
[2024-10-08] MEDS: Doxycycline 100 MG in 0.9% Normal Saline (250mL Bag) 250 ML 250 MG IV ×2 (09:56→22:52)
--- NOTE | 2024-10-08 10:37 | CASEMGMT ---
NIXON let patient know that [facility] is able to take her and they can take her back and forth to dialysis. NIXON told patient she may go tomorrow or [place]. Patient was going to try and find someone to take her friend to her home to get her clothes. Plan: d/c to [facility] pending insurance approval. Naty Lei WIRELESS SALES CONSULTANT ANKIT
--- NOTE | 2024-10-08 12:39 | CASEMGMT ---
[facility]dates [facility] with request for precert to be submitted. Alivia Burrell DC Planning Asst.
[2024-10-08] MEDS: NYSTATIN 500,000 UNIT/5 ML UDC 500000 UNIT PO ×3 (14:44→22:51)
--- NOTE | 2024-10-08 17:50 | PN.RENAL_ITS ---
Subjective Subjective no new events Objective Data Objective Data Vital Signs: Vital Signs Temp Pulse Resp BP Pulse Ox O2 Del Method O2 Flow Rate 97.6 F L 75 18 117/74 100 Nasal Cannula 4 10/08/24 14:39 10/08/24 14:39 10/08/24 14:39 10/08/24 14:39 10/08/24 14:39 10/08/24 14:39 10/08/24 14:39 Oxygen Flow Rate (L/min) 4 Oxygen Delivery Method Nasal Cannula Weight: 72.2 kg Body Mass Index (BMI) 29.2 Intake & Output: Intake and Output for Last 24 Hours 10/06/24 10/07/24 10/08/24 23:59 23:59 23:59 Intake Total 2385 / 2385 620 / 620 Output Total 3500 / 3500 0 / 0 Balance -1115 / -1115 620 / 620 Lab / Micro Data 10/07/24 03:23 10/07/24 03:23 Micro: Microbiology 10/06/24 23:20 Urine, Random Urine Culture - Preliminary Gram positive organism Physical Exam Narrative Alert and oriented x 3, no apparent distress S1, S2, RRR Diminished breath sounds with coarse productive cough Abdomen soft, nontender AV fistula right forearm positive thrill and bruit Trace edema bilateral LE Assessment & Plan Assessment/Plan (1) ESRD (end stage renal disease) on dialysis: (2) COPD exacerbation: (3) Hyperkalemia: PLAN: Plan ESRD on hemodialysis Sunday at [facility] [place], EDW 68.7. Likely plan next dialysis for with fluid removal as patient can tolerate. Patient has history of anemia of chronic disease, hemoglobin is 11.0. No need for SANTINO with dialysis today. Will monitor hemoglobin trends. For acute exacerbation COPD she is receiving IV steroids, oral antibiotics and breathing treatments. Also attempt to remove fluid with dialysis as patient can tolerate.
--- NOTE | 2024-10-08 19:22 | PN.HOSP_ITS ---
Reason for Visit Reason for Visit: Diagnoses Hyperkalemia (10/07/24) Chronic obstructive pulmonary disease with (acute) exacerbation (10/07/24) End stage renal disease (10/07/24) Dependence on renal dialysis (10/07/24) Subjective Subjective Patient was seen and examined today, she will have dialysis tomorrow, we are awaiting approval for her to go to a skilled facility for short-term inpatient rehab services. Objective Data Objective Data Vital Signs: Vital Signs Temp Pulse Resp BP Pulse Ox O2 Del Method O2 Flow Rate 97.6 F L 75 18 117/74 100 Nasal Cannula 4 10/08/24 14:39 10/08/24 14:39 10/08/24 14:39 10/08/24 14:39 10/08/24 14:39 10/08/24 14:39 10/08/24 14:39 Oxygen Flow Rate (L/min) 4 Oxygen Delivery Method Nasal Cannula Weight: 72.2 kg Body Mass Index (BMI) 29.2 Intake & Output: Intake and Output for Last 24 Hours 10/06/24 10/07/24 10/08/24 23:59 23:59 23:59 Intake Total 2385 / 2385 1860 / 1860 Output Total 3500 / 3500 0 / 0 Balance -1115 / -1115 1860 / 1860 Lab / Micro Data 10/07/24 03:23 10/07/24 03:23 Micro: Microbiology 10/06/24 23:20 Urine, Random Urine Culture - Preliminary Gram positive organism Physical Exam Const alert and no apparent distress Constitutional Narrative: Patient appears older than her stated age General Appearance: cooperative, well kempt and well developed Orientation / Consciousness: awake, oriented to person and oriented to place HEENT normocephalic, head/scalp atraumatic and moist oral mucous membranes Eyes PERRL, EOMs intact bilaterally and conjunctivae normal Neck supple, no JVD, thyroid normal and no carotid bruits General: trachea midline Resp normal respiratory effort, no retractions and no use of accessory muscles Resp Narrative: Breath sounds are distant bilaterally Auscultation: Negative for rales, rhonchi or wheezes Cardio regular rate, regular rhythm, no murmurs, no rub and no gallops GI normal to inspection, nondistended, normoactive bowel sounds, soft to palpation, non-tender and non-distended Extremity no clubbing, cyanosis or edema Skin no rashes or lesions noted General Skin Exam: no breakdown Neuro CN's II-XII intact bilaterally, no focal motor deficits and no sensory deficits noted Sensorium / Orientation: awake, alert, oriented to person and oriented to place Speech: speech normal Psych affect normal Assessment & Plan Assessment/Plan (1) ESRD (end stage renal disease) on dialysis: PLAN: Plan 1. Exacerbation of COPD-continue IV Solu-Medrol, I will convert the patient over to oral doxycycline, continue nebulizer treatments #2 acute exacerbation of chronic CHF with preserved ejection fraction-continue dialysis #3 chronic hypoxic respiratory failure-continue to monitor patient's pulse ox and give supplemental oxygen #4 end-stage renal disease requiring chronic dialysis-patient will be dialyzed tomorrow #5 noncompliance with current medical care-patient does not feel she can take care of herself at home, we are awaiting approval for admission to a long-term facility for short-term rehab services. Total clinical time spent by myself addressing patient's medical issues, reviewing all of her data, and collaborating with patient's care team: 35-minute Charges/Coding Visit Charges Inpatient E&M: 77409 Subs Hosp L2
[2024-10-08] MEDS: oxyCODONE 5 MG Tablet PO (19:43)
[2024-10-08] MEDS: Atorvastatin Calcium 80 MG Tablet PO (22:53)
[2024-10-09] VITALS (17 sets, daily range): BP systolic 99–263; BP diastolic 56–108; PULSE 50–65; RESP 18–22; TEMP 35.9–36.8; O2SAT 91–100; BMI 31.8; BMI 31.4
[2024-10-09] MEDS: Phenol/Sodium Phenolate 180ML 3 SPRAY MUCOUS MEM ×4 (03:38→23:09)
[2024-10-09] MEDS: Albuterol 2.5 MG/3 ML VIAL.NEB. INHALATION ×2 (07:35→20:39)
[2024-10-09] MEDS: Heparin 10,000 UNITS/10 ML Vial 3000 UNITS IV (08:11)
[2024-10-09] MEDS: 0.9% Normal Saline 1,000 ML IV.SOLN. 1000 ML OPERA.SITE (08:11)
[2024-10-09] MEDS: PureFlow B 2K Dialysis Soln 1 BAG 6 BAG PF (08:12)
--- NOTE | 2024-10-09 09:09 | NURSING ---
Temp taken in groin
[2024-10-09] MEDS: oxyCODONE 5 MG Tablet PO ×2 (09:53→21:11)
[2024-10-09] MEDS: Aspirin E.C. 81 MG Tablet PO (09:55)
[2024-10-09] MEDS: NYSTATIN 500,000 UNIT/5 ML UDC 500000 UNIT PO ×3 (09:55→23:00)
[2024-10-09] MEDS: Clopidogrel Bisulfate 75 MG Tablet PO (09:56)
[2024-10-09] MEDS: Sertraline 50 MG Tablet 25 MG PO (09:56)
[2024-10-09] MEDS: Folic Acid/Vitamin B Comp W-C 1 Capsule 1 CAP PO (09:56)
[2024-10-09] MEDS: Pantoprazole Sodium 40 MG Tablet PO (09:56)
[2024-10-09] MEDS: Cholecalciferol (VIT D3) 25 MCG TABLET (1,000 UNITS) PO (09:56)
--- NOTE | 2024-10-09 10:52 | PCM.PN.REN ---
Subjective Subjective Seen on dialysis today, tolerating treatment well. No overnight events. Reports breathing has improved Objective Data Objective Data Vital Signs: Vital Signs Temp Pulse Resp BP Pulse Ox O2 Del Method O2 Flow Rate 97.7 F L 52 L 20 H 112/56 L 99 Nasal Cannula 3.5 10/09/24 09:09 10/09/24 10:30 10/09/24 10:30 10/09/24 10:30 10/09/24 10:30 10/09/24 10:30 10/09/24 10:30 Oxygen Flow Rate (L/min) 3.5 Oxygen Delivery Method Nasal Cannula Weight: 78.902 kg Body Mass Index (BMI) 31.8 Intake & Output: Intake and Output for Last 24 Hours 10/07/24 10/08/24 10/09/24 23:59 23:59 23:59 Intake Total 2385 / 2385 0 / 2120 Output Total 3500 / 3500 0 / 0 0 / 0 Balance -1115 / -1115 2119 / 2119 0 / 0 Lab / Micro Data 10/07/24 03:23 10/07/24 03:23 Micro: Microbiology 10/06/24 23:28 Blood Culture (Wb) - Chest Blood Culture - Preliminary No growth in 48 hours. 10/06/24 22:32 Blood Culture (Wb) - Chest Blood Culture - Preliminary No growth in 48 hours. 10/06/24 23:20 Urine, Random Urine Culture - Preliminary Enterococcus faecium Physical Exam Narrative Alert and oriented x 3, no apparent distress S1, S2, RRR Diminished breath sounds with coarse productive cough Abdomen soft, nontender AV fistula right forearm positive thrill and bruit Trace edema bilateral LE Assessment & Plan Assessment/Plan (1) ESRD (end stage renal disease) on dialysis: (2) COPD exacerbation: (3) Hyperkalemia: PLAN: Plan ESRD on hemodialysis Sunday at [facility] kidney [place], EDW 68.7. Undergoing dialysis today and attempting around 3.5 L fluid removal. Patient has history of anemia of chronic disease, last hemoglobin 11.0. No need for SANTINO with dialysis today. Will monitor hemoglobin trends. For acute exacerbation COPD she is receiving IV steroids, oral antibiotics and breathing treatments. Also attempt to remove fluid with dialysis as patient can tolerate. Discharge planning in progress to [facility] for therapy.
[2024-10-09] MEDS: Doxycycline 100 MG in 0.9% Normal Saline (250mL Bag) 250 ML 250 MG IV (12:26)
[2024-10-09] MEDS: Bumetanide 1 MG/4 ML Vial 2 MG IV ×2 (12:27→22:58)
[2024-10-09] MEDS: Heparin Injection (Vial) 5,000 UNIT/ML VIAL 5000 UNIT SC ×2 (12:27→22:59)
[2024-10-09] MEDS: MethylPREDNISolone 125 MG/2 ML Vial 60 MG IV ×2 (12:27→22:59)
[2024-10-09] MEDS: Calcium Acetate 667 MG Capsule PO ×2 (12:28→17:04)
--- NOTE | 2024-10-09 16:58 | PN.HOSP_ITS ---
Reason for Visit Reason for Visit: Diagnoses Hyperkalemia (10/07/24) Chronic obstructive pulmonary disease with (acute) exacerbation (10/07/24) End stage renal disease (10/07/24) Dependence on renal dialysis (10/07/24) Subjective Subjective Patient was seen and examined today, she appears sleepy but she appears in no distress. Patient underwent dialysis today. Objective Data Objective Data Vital Signs: Vital Signs Temp Pulse Resp BP Pulse Ox O2 Del Method O2 Flow Rate 97.7 F L 58 L 20 H 120/81 H 99 Nasal Cannula 3.5 10/09/24 09:09 10/09/24 14:30 10/09/24 11:32 10/09/24 14:30 10/09/24 14:30 10/09/24 14:30 10/09/24 14:30 Oxygen Flow Rate (L/min) 3.5 Oxygen Delivery Method Nasal Cannula Weight: 77.927 kg Body Mass Index (BMI) 31.4 Intake & Output: Intake and Output for Last 24 Hours 10/07/24 10/08/24 10/09/24 23:59 23:59 23:59 Intake Total 2385 / 2385 2120 / 2120 460 / 460 Output Total 3500 / 3500 0 / 0 3250 / 3250 Balance -1115 / -1115 2120 / 2120 -2790 / -2790 Lab / Micro Data 10/07/24 03:23 10/07/24 03:23 Micro: Microbiology 10/06/24 23:28 Blood Culture (Wb) - Chest Blood Culture - Preliminary No growth in 48 hours. 10/06/24 22:32 Blood Culture (Wb) - Chest Blood Culture - Preliminary No growth in 48 hours. 10/06/24 23:20 Urine, Random Urine Culture - Preliminary Enterococcus faecium Physical Exam Narrative Patient is sleepy but does awaken to verbal and tactile stimulation Constitutional Narrative: Patient appears older than her stated age General Appearance: cooperative, well kempt and well developed Orientation / Consciousness: Patient is lethargic but does awaken to verbal and tactile stimulation HEENT normocephalic, head/scalp atraumatic and moist oral mucous membranes Eyes PERRL, EOMs intact bilaterally and conjunctivae normal Neck supple, no JVD, thyroid normal and no carotid bruits General: trachea midline Resp normal respiratory effort, no retractions and no use of accessory muscles Resp Narrative: Breath sounds are distant bilaterally Auscultation: Negative for rales, rhonchi or wheezes Cardio regular rate, regular rhythm, no murmurs, no rub and no gallops GI normal to inspection, nondistended, normoactive bowel sounds, soft to palpation, non-tender and non-distended Extremity no clubbing, cyanosis or edema Skin no rashes or lesions noted General Skin Exam: no breakdown Neuro CN's II-XII intact bilaterally, no focal motor deficits and no sensory deficits noted Sensorium / Orientation: Patient is lethargic Psych Lethargic, in no distress Assessment & Plan Assessment/Plan (1) COPD exacerbation: (2) ESRD (end stage renal disease) on dialysis: PLAN: Plan 1. Exacerbation of COPD-continue IV Solu-Medrol, I do not feel the patient needs doxycycline at this point and I have discontinued #2 acute exacerbation of chronic CHF with preserved ejection fraction-continue dialysis #3 chronic hypoxic respiratory failure-continue to monitor patient's pulse ox and give supplemental oxygen #4 end-stage renal disease requiring chronic dialysis-patient will be dialyzed tomorrow #5 noncompliance with current medical care-patient does not feel she can take care of herself at home, we are awaiting approval for admission to a custodial facility for short-term rehab services. Total clinical time spent by myself addressing patient's medical issues, reviewing all of her data, and collaborating with patient's care team: 35-minute Charges/Coding Visit Charges Inpatient E&M: 41299 Subs Hosp L2
[2024-10-09] MEDS: Atorvastatin Calcium 80 MG Tablet PO (23:00)
[2024-10-09] MEDS: 0.9% Saline Lock 10 ML Syringe IV (23:09)
[2024-10-10] VITALS (12 sets, daily range): BP systolic 119–143; BP diastolic 69–85; PULSE 55–88; RESP 14–20; TEMP 35.6–36.6; O2SAT 92–100; BMI 31.4
[2024-10-10] MEDS: Albuterol 2.5 MG/3 ML VIAL.NEB. INHALATION ×6 (03:30→23:23)
--- NOTE | 2024-10-10 09:37 | CASEMGMT ---
Updates sent to [facility]. Precert remains pending. Alivia Burrell DC Planning Asst.
[2024-10-10] MEDS: Pantoprazole Sodium 40 MG Tablet PO (10:03)
[2024-10-10] MEDS: Aspirin E.C. 81 MG Tablet PO (10:04)
[2024-10-10] MEDS: Calcium Acetate 667 MG Capsule PO ×3 (10:04→17:35)
[2024-10-10] MEDS: Bumetanide 1 MG/4 ML Vial 2 MG IV ×2 (10:04→23:01)
[2024-10-10] MEDS: Folic Acid/Vitamin B Comp W-C 1 Capsule 1 CAP PO (10:05)
[2024-10-10] MEDS: Heparin Injection (Vial) 5,000 UNIT/ML VIAL 5000 UNIT SC ×2 (10:05→23:02)
[2024-10-10] MEDS: NYSTATIN 500,000 UNIT/5 ML UDC 500000 UNIT PO ×4 (10:05→23:02)
[2024-10-10] MEDS: Carvedilol 25 MG Tablet PO ×2 (10:05→23:04)
[2024-10-10] MEDS: Clopidogrel Bisulfate 75 MG Tablet PO (10:05)
[2024-10-10] MEDS: Cholecalciferol (VIT D3) 25 MCG TABLET (1,000 UNITS) PO (10:06)
[2024-10-10] MEDS: Sertraline 50 MG Tablet 25 MG PO (10:06)
[2024-10-10] MEDS: MethylPREDNISolone 125 MG/2 ML Vial 60 MG IV ×2 (10:06→23:03)
--- NOTE | 2024-10-10 10:07 | PN.RENAL_ITS ---
Subjective Subjective Patient is resting in bed. No overnight events. No complaints. Hopeful to be discharged to ECF today. Objective Data Objective Data Vital Signs: Vital Signs Temp Pulse Resp BP Pulse Ox O2 Del Method O2 Flow Rate 97.6 F L 68 16 143/73 H 100 Nasal Cannula 2 10/10/24 09:59 10/10/24 09:59 10/10/24 09:59 10/10/24 09:59 10/10/24 09:59 10/10/24 09:59 10/10/24 09:59 Oxygen Flow Rate (L/min) 2 Oxygen Delivery Method Nasal Cannula Weight: 77.92 kg Body Mass Index (BMI) 31.4 Intake & Output: Intake and Output for Last 24 Hours 10/08/24 10/09/24 10/10/24 23:59 23:59 23:59 Intake Total 2120 / 2120 910 / 910 Output Total 0 / 0 3250 / 3250 Balance 2120 / 2120 -2340 / -2340 Lab / Micro Data 10/07/24 03:23 10/07/24 03:23 Micro: Microbiology 10/06/24 23:20 Urine, Random Urine Culture - Final Vancomycin Resist. E. faecium 10/06/24 23:28 Blood Culture (Wb) - Chest Blood Culture - Preliminary No growth in 48 hours. 10/06/24 22:32 Blood Culture (Wb) - Chest Blood Culture - Preliminary No growth in 48 hours. Physical Exam Narrative Alert and oriented x 3, no apparent distress S1, S2, RRR Diminished breath sounds with coarse productive cough Abdomen soft, nontender AV fistula right forearm positive thrill and bruit Trace edema bilateral LE Assessment & Plan Assessment/Plan (1) ESRD (end stage renal disease) on dialysis: (2) COPD exacerbation: (3) Hyperkalemia: PLAN: Plan - ESRD on hemodialysis Sunday at [facility] kidney [place], EDW 68.7. Patient tolerated dialysis yesterday with around 3.2 L fluid removal. No acute indication for GELATIN [employer] today. Next dialysis tomorrow. Patient has history of anemia of chronic disease, last hemoglobin 11.0. No need for SANTINO with dialysis. Will monitor hemoglobin trends. Acute exacerbation COPD she is receiving IV steroids, oral antibiotics and breathing treatments. Also attempt to remove fluid with dialysis as patient can tolerate. Discharge planning in progress to ECF for therapy.
[2024-10-10] MEDS: BENZOCAINE/MENTHOL 1 LOZENGE MUCOUS MEM (13:58)
[2024-10-10] MEDS: Acetaminophen 325 MG Tablet 650 MG PO (13:58)
[2024-10-10] MEDS: oxyCODONE 5 MG Tablet PO (13:58)
--- NOTE | 2024-10-10 18:49 | PN.HOSP_ITS ---
Reason for Visit Reason for Visit: Diagnoses Hyperkalemia (10/07/24) Chronic obstructive pulmonary disease with (acute) exacerbation (10/07/24) End stage renal disease (10/07/24) Dependence on renal dialysis (10/07/24) Subjective Subjective Patient was seen and examined today, she does not appear in any distress, she had a brief choking episode while eating and complained of swallowing difficulties so she was seen by speech therapy, speech therapy does not feel she needs further testing at this time but would recommend she see a GI doctor as an outpatient for possible EGD due to her history of GERD. We are awaiting approval for her to be placed in a extended care facility we have not received permission from her insurance carrier as of today. Objective Data Objective Data Vital Signs: Vital Signs Temp Pulse Resp BP Pulse Ox O2 Del Method O2 Flow Rate 97.8 F 71 18 139/85 H 92 Nasal Cannula 2 10/10/24 17:27 10/10/24 17:27 10/10/24 17:27 10/10/24 17:27 10/10/24 17:27 10/10/24 17:27 10/10/24 17:27 Oxygen Flow Rate (L/min) 2 Oxygen Delivery Method Nasal Cannula Weight: 77.92 kg Body Mass Index (BMI) 31.4 Intake & Output: Intake and Output for Last 24 Hours 10/08/24 10/09/24 10/10/24 23:59 23:59 23:59 Intake Total 0 / 2120 910 / 910 600 / 600 Output Total 0 / 0 3250 / 3250 Balance 2120 / 2120 -2340 / -2340 600 / 600 Lab / Micro Data 10/07/24 03:23 10/07/24 03:23 Micro: Microbiology 10/06/24 23:20 Urine, Random Urine Culture - Final Vancomycin Resist. E. faecium 10/06/24 23:28 Blood Culture (Wb) - Chest Blood Culture - Preliminary No growth in 48 hours. 10/06/24 22:32 Blood Culture (Wb) - Chest Blood Culture - Preliminary No growth in 48 hours. Physical Exam Narrative Patient is sleepy but does awaken to verbal and tactile stimulation Constitutional Narrative: Patient appears older than her stated age General Appearance: cooperative, well kempt and well developed Orientation / Consciousness: Patient is lethargic but does awaken to verbal and tactile stimulation HEENT normocephalic, head/scalp atraumatic and moist oral mucous membranes Eyes PERRL, EOMs intact bilaterally and conjunctivae normal Neck supple, no JVD, thyroid normal and no carotid bruits General: trachea midline Resp normal respiratory effort, no retractions and no use of accessory muscles Resp Narrative: Breath sounds are distant bilaterally Auscultation: Negative for rales, rhonchi or wheezes Cardio regular rate, regular rhythm, no murmurs, no rub and no gallops GI normal to inspection, nondistended, normoactive bowel sounds, soft to palpation, non-tender and non-distended Extremity no clubbing, cyanosis or edema Skin no rashes or lesions noted General Skin Exam: no breakdown Neuro CN's II-XII intact bilaterally, no focal motor deficits and no sensory deficits noted Sensorium / Orientation: Patient is lethargic Psych Lethargic, in no distress Assessment & Plan Assessment/Plan (1) ESRD (end stage renal disease) on dialysis: (2) COPD exacerbation: PLAN: Plan 1. Exacerbation of COPD-continue IV Solu-Medrol #2 acute exacerbation of chronic CHF with preserved ejection fraction-continue dialysis #3 chronic hypoxic respiratory failure-continue to monitor patient's pulse ox and give supplemental oxygen #4 end-stage renal disease requiring chronic dialysis-patient will be dialyzed tomorrow #5 noncompliance with current medical care-patient does not feel she can take care of herself at home, we are awaiting approval for admission to a residential facility for short-term rehab services. #6 acute on chronic debility-we are awaiting approval for the patient to go to skilled care facility Total clinical time spent by myself addressing patient's medical issues, reviewing all of her data, and collaborating with patient's care team: 35-minute Charges/Coding Visit Charges Inpatient E&M: 18531 Subs Hosp L2
[2024-10-10] MEDS: Atorvastatin Calcium 80 MG Tablet PO (23:02)
[2024-10-10] MEDS: 0.9% Saline Lock 10 ML Syringe IV (23:04)
[2024-10-11] VITALS (13 sets, daily range): BP systolic 95–205; BP diastolic 48–106; PULSE 47–58; RESP 14–24; TEMP 36.3–36.4; O2SAT 94–100; BMI 31.2; BMI 30.4
[2024-10-11] MEDS: Albuterol 2.5 MG/3 ML VIAL.NEB. INHALATION ×2 (02:54→07:26)
[2024-10-11] MEDS: Magnesium Hydroxide 30 ML UDC PO (06:11)
--- NOTE | 2024-10-11 08:35 | CASEMGMT ---
Social Work Divine responded in [facility] that precert was obtained. SW updated the green sheet. PAS/RR has already been completed w/results. SW texted physician to let her know. SW spoke w/pt in room, pt is about to start dialysis. SW let pt know that insurance did approve her to go to the long term, and that she will likey go later today. Pt states understanding. SW also updated bedside RN. SW remains available, green sheet is on chart for staff to follow for discharge this weekend. SAM Garza
[2024-10-11] MEDS: Aspirin E.C. 81 MG Tablet PO (08:55)
[2024-10-11] MEDS: Calcium Acetate 667 MG Capsule PO ×2 (08:55→13:20)
--- NOTE | 2024-10-11 10:29 | TREXTCAR_ITS ---
Diet Diet Order/Speech Therapy: 10/07/24 13:37 Diet: Renal - General Food consistency:: Easy to Chew Liquid Consistency:: Regular/Thin Dietary Modifications:: Phosphorus Restricted Diet Comments: Direct supervision. FULLY ALERT for meals, Sit upright, No black pepper. DC O2, CPAP, BIPAP needs Home O2 Discharge instructions: Yes Type of respiratory needs?: Oxygen Oxygen frequency: Continuous Continuous oxygen liters per minute: 2 L Wound(s) right elbow: Wound Type: Abrasion RLE: Wound Type: Abrasion Therapies Weight Bearing: Full weight bearing Physical Therapy: Eval and Treat Occupational Therapy: Eval and Treat Speech Therapy: Eval and Treat Problem/Diagnosis (1) ESRD (end stage renal disease) on dialysis: Status: Acute Code(s): N18.6 - End stage renal disease; Z99.2 - Dependence on renal dialysis (2) COPD exacerbation: Status: Chronic Code(s): J44.1 - Chronic obstructive pulmonary disease with (acute) exacerbation (3) Pleuritic pain: Status: Acute Code(s): R07.81 - Pleurodynia Plan 1. Exacerbation of COPD-continue IV Solu-Medrol #2 acute exacerbation of chronic CHF with preserved ejection fraction-continue dialysis #3 chronic hypoxic respiratory failure-continue to monitor patient's pulse ox and give supplemental oxygen #4 end-stage renal disease requiring chronic dialysis-patient will be dialyzed tomorrow #5 noncompliance with current medical care-patient does not feel she can take care of herself at home, we are awaiting approval for admission to a detention facility for short-term rehab services. #6 acute on chronic debility-we are awaiting approval for the patient to go to skilled care facility Total clinical time spent by myself addressing patient's medical issues, reviewing all of her data, and collaborating with patient's care team: 35-minute Allergies/Procedures Done in Hospital Allergies Latex, Natural Rubber Allergy (Verified 10/06/24 21:45) Rash Penicillins Allergy (Verified 10/06/24 21:45) Rash Procedures: Dialysis Type of Care/Length of Stay Estimated LOS: Convalescent Care Less Than 30 days Type of Care Needed: Skilled Rehab Potential: Good Prognosis: Good Additional Orders/Day of Discharge H&P will serve as current which was dated: 10/07/24 Day of Discharge: 10/11/24 Dietary and Speech Recommendations Dietitian Recommendations/Changes: Continue renal general diet with phosphorus restriction; no black pepper. Will consult [employer] d/t pt coughing while eating. Will monitor weight as available. Reviewed and approved by Lawanda Franco RD, LD. Discharge Plan Admission Admit Date/Time: 10/07/24 02:32 Primary Reason for Your Visit: Debility, exacerbation of COPD Attending Provider: Shayne Ambrose Primary Care Provider: Elvin Becerra Consulting Providers: Adrian Vazquez; Thomas Scott Discharge Orders/Prescriptions Prescriptions: New nystatin 100,000 unit/mL Suspension 500,000 unit PO 4X/DAY Qty: 0 0RF Rx Instructions: take a total of 28 doses then DC albuterol sulfate 2.5 mg /3 mL (0.083 %) Solution For Nebulization 2.5 mg inhalation 4X/DAY Qty: 0 0RF oxycodone 5 mg Tablet 5 mg PO Q6H PRN PRN (Reason: Pain Score 6-10) 2 Days Qty: 8 0RF Sore Throat (benzocaine-menth) 15-3.6 mg Lozenge 1 irvin mucous membrane Q4H PRN (Reason: mouth/throat sore) Qty: 0 0RF prednisone 20 mg tablet 20 mg PO DAILY Qty: 7 0RF Rx Instructions: Take for 7 days starting 10/11/2024 then discontinue Continued calcium acetate 667 mg tablet 667 mg PO TID cholecalciferol (vitamin D3) 25 mcg (1,000 unit) capsule 25 mcg PO DAILY atorvastatin 80 mg tablet 80 mg PO QHS clopidogrel 75 mg tablet 75 mg PO DAILY aspirin 81 mg tablet,delayed release (DR/EC) 81 mg PO DAILY pantoprazole 40 mg tablet,delayed release (DR/EC) 40 mg PO DAILY Mojgan-Kirk 0.8 mg tablet 1 tab PO DAILY nitroglycerin 0.4 mg tablet, sublingual 0.4 mg sublingual DAILY PRN (Reason: CHEST PAIN ) Rx Instructions: Dissolve 1 tablet under the tongue as needed for chest pain. sertraline 25 mg tablet 25 mg PO DAILY acetaminophen 325 mg capsule 650 mg PO BID PRN (Reason: PAIN ) carvedilol 12.5 mg tablet 25 mg PO Q12H metoclopramide HCl [Reglan] 10 mg tablet 10 mg PO Q6H PRN (Reason: nausea and vomiting) 3 Days Qty: 12 0RF Velphoro 500 mg tablet,chewable 1,500 mg PO TID Changed albuterol sulfate 2.5 mg /3 mL (0.083 %) solution for nebulization 2.5 mg continuous nebulization Q2H PRN (Reason: wheezing) Qty: 1 0RF furosemide 80 mg tablet 80 mg PO BID Qty: 1 0RF Discontinued sulfamethoxazole-trimethoprim 400-80 mg tablet 1 tab PO BID prednisone 20 mg tablet 40 mg PO DAILY Qty: 10 0RF oxycodone 5 mg tablet 5 mg PO Q6H PRN (Reason: pain) 3 Days Qty: 12 0RF Referrals / Follow Up: Elvin Becerra MD [Primary Care Provider] - Disposition Disposition (needs filled in before D/C Order can be placed): Long Term Facility
[2024-10-11] MEDS: 0.9% Normal Saline 1,000 ML IV.SOLN. 1000 ML OPERA.SITE (10:33)
[2024-10-11] MEDS: PureFlow B 2K Dialysis Soln 1 BAG 6 BAG PF (10:33)
[2024-10-11] MEDS: 0.9% Saline Lock 10 ML Syringe IV (10:33)
--- NOTE | 2024-10-11 11:21 | PCM.DC.SUM ---
Providers Date of Admission: 10/07/24 Date of Discharge: 10/11/24 Primary Care Physician: Dr. Elvin Becerra MD Consultations 10/07/24 03:37 Consult: Nephrology Routine Consulting Provider: Adrian Vazquez Reason for Consult: ESRD on HD EMERGENT Consult: No MD Notified: Yes Date Notified: 10/07/24 Time Notified: 03:42 Method of Notification: Answering Service Reason For Visit: AE ASTHMA/COPD, AE CHF, RESPIRATORY INSUFFICIENCY, Diagnosis Discharge Diagnosis (1) ESRD (end stage renal disease) on dialysis: Status: Acute Code(s): N18.6 - End stage renal disease; Z99.2 - Dependence on renal dialysis (2) COPD exacerbation: Status: Chronic Code(s): J44.1 - Chronic obstructive pulmonary disease with (acute) exacerbation (3) Pleuritic pain: Status: Acute Code(s): R07.81 - Pleurodynia Plan 1. Exacerbation of COPD-continue IV Solu-Medrol #2 acute exacerbation of chronic CHF with preserved ejection fraction-continue dialysis #3 chronic hypoxic respiratory failure-continue to monitor patient's pulse ox and give supplemental oxygen #4 end-stage renal disease requiring chronic dialysis-patient will be dialyzed tomorrow #5 noncompliance with current medical care-patient does not feel she can take care of herself at home, we are awaiting approval for admission to a [facility] facility for short-term rehab services. #6 acute on chronic debility-we are awaiting approval for the patient to go to skilled care facility Total clinical time spent by myself addressing patient's medical issues, reviewing all of her data, and collaborating with patient's care team: 35-minute Medications at Discharge Home Medications cholecalciferol (vitamin D3) 25 mcg (1,000 unit) capsule 25 mcg PO DAILY SUPPLEMENT 10/02/21 aspirin 81 mg tablet,delayed release 81 mg PO DAILY HEART 11/14/22 atorvastatin 80 mg tablet 80 mg PO QHS CHOLESTEROL 11/14/22 clopidogrel 75 mg tablet 75 mg PO DAILY BLOOD THINNER 11/14/22 nitroglycerin 0.4 mg sublingual tablet 0.4 mg sublingual DAILY PRN CHEST PAIN 11/14/22 pantoprazole 40 mg tablet,delayed release 40 mg PO DAILY ACID REFLUX 11/14/22 vitamin B complex-vitamin C-folic acid 0.8 mg tablet (Mojgan-Kirk) 1 tab PO DAILY SUPPLEMENT 11/14/22 acetaminophen 325 mg capsule 650 mg PO BID PRN PAIN 08/07/23 sertraline 25 mg tablet 25 mg PO DAILY DEPRESSION 08/07/23 calcium acetate 667 mg tablet 667 mg PO TID 10/24/23 carvedilol 12.5 mg tablet 25 mg PO Q12H 06/02/24 metoclopramide HCl 10 mg tablet (Reglan) 10 mg PO Q6H PRN nausea and vomiting 3 days #12 tabs 10/05/24 sucroferric oxyhydroxide 500 mg chewable tablet (Velphoro) 1,500 mg PO TID 10/06/24 albuterol sulfate 2.5 mg/3 mL (0.083 %) solution for nebulization 2.5 mg (3 mL) continuous nebulization Q2H PRN wheezing #1 mL 10/11/24 albuterol sulfate 2.5 mg/3 mL (0.083 %) solution for nebulization 2.5 mg (3 mL) inhalation 4X/DAY #0 mL 10/11/24 benzocaine 15 mg-menthol 3.6 mg lozenges (Sore Throat (benzocaine with menthol)) 1 irvin mucous membrane Q4H PRN mouth/throat sore #0 ea 10/11/24 furosemide 80 mg tablet 80 mg PO BID #1 TAB 10/11/24 nystatin 100,000 unit/mL oral suspension 500,000 unit (5 mL) PO 4X/DAY #0 mL 10/11/24 oxycodone 5 mg tablet 5 mg PO Q6H PRN PRN Pain Score 6-10 2 days #8 tabs 10/11/24 prednisone 20 mg tablet 20 mg PO DAILY #7 tabs 10/11/24 Hospital Course Operations None Procedures Dialysis Summary of Care Provided Minutes Spent on Discharge: 31 Hospital Course: This 64-year-old white female was seen in the emergency room at [facility] with complaints of increased shortness of breath. She stated that she was unable to perform ADLs at home. Patient was ambulated in the emergency room and became hypoxic to 88% while on her baseline oxygen requirement of 2 L. Labs showed an elevated white blood cell count of 15.9, sodium was 128 and potassium was 5.4. Creatinine was 5.83. Chest x-ray showed mild prominence of the pulmonary system. Patient was admitted to PCU for exacerbation of COPD and acute exacerbation of chronic CHF with preserved ejection fraction, patient was dialyzed and aerosol treatments were given to the patient as well as IV Solu-Medrol. Patient consented to go to a [facility] facility for skilled care. On 10/11/2024, patient was seen and examined:Patient is sleepy but does awaken to verbal and tactile stimulation Constitutional Narrative: Patient appears older than her stated age General Appearance: cooperative, well kempt and well developed Orientation / Consciousness: Patient is lethargic but does awaken to verbal and tactile stimulation HEENT normocephalic, head/scalp atraumatic and moist oral mucous membranes Eyes PERRL, EOMs intact bilaterally and conjunctivae normal Neck supple, no JVD, thyroid normal and no carotid bruits General: trachea midline Resp normal respiratory effort, no retractions and no use of accessory muscles Resp Narrative: Breath sounds are distant bilaterally Auscultation: Negative for rales, rhonchi or wheezes Cardio regular rate, regular rhythm, no murmurs, no rub and no gallops GI normal to inspection, nondistended, normoactive bowel sounds, soft to palpation, non-tender and non-distended Extremity no clubbing, cyanosis or edema Skin no rashes or lesions noted General Skin Exam: no breakdown Neuro CN's II-XII intact bilaterally, no focal motor deficits and no sensory deficits noted Sensorium / Orientation: Patient is lethargic Psych Lethargic, in no distress Patient was transferred to skilled facility ([facility]) on 10/11/2024 in stable condition Weight / BMI Weight Weight: 75.6 kg Body Mass Index (BMI) 30.4 ABG / Lab / Microbiology Data 10/07/24 03:23 10/07/24 03:23 Microbiology: Microbiology 10/06/24 23:20 Urine, Random Urine Culture - Final Vancomycin Resist. E. faecium 10/06/24 23:28 Blood Culture (Wb) - Chest Blood Culture - Preliminary No growth in 48 hours. 10/06/24 22:32 Blood Culture (Wb) - Chest Blood Culture - Preliminary No growth in 48 hours. D/C Instructions DC O2, CPAP, BIPAP Needs Home O2 Discharge instructions: Yes Type of respiratory needs?: Oxygen Oxygen frequency: Continuous Continuous oxygen liters per minute: 2 L DC home with Oxygen: Yes Home O2 MD Review: I have reviewed the oxygen testing, and the patient qualifies for home oxygen equipment and portability. The patient is mobile in the home and the community. Meaningful Use Info Meaningful Use Meaningful Use Diagnoses (Choose all that apply): None applicable Ischemic Stroke Statin Dosing Therapy Reference: STATIN DOSE THERAPY REFERENCE: * Patients > 75 years receive moderate or high dose statin therapy. * Patients 75 years or YOUNGER should receive HIGH intensity statin dose unless contraindicated. You will be required to document reason for non-treatment if statin daily dose does not meet guidelines. HIGH DOSE STATIN THERAPY DAILY Atorvastatin > than or = to 40 mg Rosuvastatin > than or = to 20 mg Amlodipine + Atorvastatin > than or = to 2.5/40 mg Ezetimibe + Simvastatin 10/80 mg Simvastatin 80mg Discharge Plan Admission Admit Date/Time: 10/07/24 02:32 Primary Reason for Your Visit: Debility, exacerbation of COPD Attending Provider: Shayne Ambrose Primary Care Provider: Elvin Becerra Consulting Providers: Adrian Vazquez; Thomas Scott Discharge Orders/Prescriptions Prescriptions: New nystatin 100,000 unit/mL Suspension 500,000 unit PO 4X/DAY Qty: 0 0RF Rx Instructions: take a total of 28 doses then DC albuterol sulfate 2.5 mg /3 mL (0.083 %) Solution For Nebulization 2.5 mg inhalation 4X/DAY Qty: 0 0RF oxycodone 5 mg Tablet 5 mg PO Q6H PRN PRN (Reason: Pain Score 6-10) 2 Days Qty: 8 0RF Sore Throat (benzocaine-menth) 15-3.6 mg Lozenge 1 irvin mucous membrane Q4H PRN (Reason: mouth/throat sore) Qty: 0 0RF prednisone 20 mg tablet 20 mg PO DAILY Qty: 7 0RF Rx Instructions: Take for 7 days starting 10/11/2024 then discontinue Continued calcium acetate 667 mg tablet 667 mg PO TID cholecalciferol (vitamin D3) 25 mcg (1,000 unit) capsule 25 mcg PO DAILY atorvastatin 80 mg tablet 80 mg PO QHS clopidogrel 75 mg tablet 75 mg PO DAILY aspirin 81 mg tablet,delayed release (DR/EC) 81 mg PO DAILY pantoprazole 40 mg tablet,delayed release (DR/EC) 40 mg PO DAILY Mojgan-Kirk 0.8 mg tablet 1 tab PO DAILY nitroglycerin 0.4 mg tablet, sublingual 0.4 mg sublingual DAILY PRN (Reason: CHEST PAIN ) Rx Instructions: Dissolve 1 tablet under the tongue as needed for chest pain. sertraline 25 mg tablet 25 mg PO DAILY acetaminophen 325 mg capsule 650 mg PO BID PRN (Reason: PAIN ) carvedilol 12.5 mg tablet 25 mg PO Q12H metoclopramide HCl [Reglan] 10 mg tablet 10 mg PO Q6H PRN (Reason: nausea and vomiting) 3 Days Qty: 12 0RF Velphoro 500 mg tablet,chewable 1,500 mg PO TID Changed albuterol sulfate 2.5 mg /3 mL (0.083 %) solution for nebulization 2.5 mg continuous nebulization Q2H PRN (Reason: wheezing) Qty: 1 0RF furosemide 80 mg tablet 80 mg PO BID Qty: 1 0RF Discontinued sulfamethoxazole-trimethoprim 400-80 mg tablet 1 tab PO BID prednisone 20 mg tablet 40 mg PO DAILY Qty: 10 0RF oxycodone 5 mg tablet 5 mg PO Q6H PRN (Reason: pain) 3 Days Qty: 12 0RF Referrals / Follow Up: Elvin Becerra MD [Primary Care Provider] - Disposition Disposition (needs filled in before D/C Order can be placed): Long-Term Facility Charges/Coding Visit Charges Inpatient E&M: 70756 Disch Hosp >30min
[2024-10-11] MEDS: NYSTATIN 500,000 UNIT/5 ML UDC 500000 UNIT PO ×2 (11:29→15:38)
[2024-10-11] MEDS: Lactulose 20 GM/30 ML UDC 30 GM PO (13:16)
[2024-10-11] MEDS: Cholecalciferol (VIT D3) 25 MCG TABLET (1,000 UNITS) PO (13:19)
[2024-10-11] MEDS: Clopidogrel Bisulfate 75 MG Tablet PO (13:19)
[2024-10-11] MEDS: Pantoprazole Sodium 40 MG Tablet PO (13:19)
[2024-10-11] MEDS: Sertraline 50 MG Tablet 25 MG PO (13:20)
[2024-10-11] MEDS: Folic Acid/Vitamin B Comp W-C 1 Capsule 1 CAP PO (13:21)
--- NOTE | 2024-10-11 13:34 | NURSING ---
[facility]
== END 2024-10-11 17:45 | disposition skilled nursing facility (03) | DRG 291 ==
LOC: ED 10-07 01:30 → PCU 10-07 04:02
PROVIDERS: Admitting Provider Internal Medicine; Emergency Provider Emergency Medicine; PCP Family Medicine; Visit Provider Internal Medicine
DX: I13.2 Hypertensive heart and chronic kidney disease with heart failure and with stage 5 chronic kidney disease, or end stage renal disease (principal); N18.6 End stage renal disease; I50.33 Acute on chronic diastolic (congestive) heart failure; J44.1 Chronic obstructive pulmonary disease with (acute) exacerbation; I24.89 Other forms of acute ischemic heart disease; E87.1 Hypo-osmolality and hyponatremia; D63.1 Anemia in chronic kidney disease; E11.22 Type 2 diabetes mellitus with diabetic chronic kidney disease; K21.9 Gastro-esophageal reflux disease without esophagitis; F41.8 Other specified anxiety disorders; I25.10 Atherosclerotic heart disease of native coronary artery without angina pectoris; Z99.2 Dependence on renal dialysis; E78.00 Pure hypercholesterolemia, unspecified; E87.5 Hyperkalemia; I25.2 Old myocardial infarction; M19.90 Unspecified osteoarthritis, unspecified site; M79.81 Nontraumatic hematoma of soft tissue; R11.0 Nausea; Z90.710 Acquired absence of both cervix and uterus; Z79.82 Long term (current) use of aspirin; Z79.891 Long term (current) use of opiate analgesic; Z79.02 Long term (current) use of antithrombotics/antiplatelets; Z87.891 Personal history of nicotine dependence; F43.10 Post-traumatic stress disorder, unspecified; Z95.5 Presence of coronary angioplasty implant and graft; R07.81 Pleurodynia; Z79.899 Other long term (current) drug therapy; E66.3 Overweight; Z68.28 Body mass index [BMI] 28.0-28.9, adult; Z90.49 Acquired absence of other specified parts of digestive tract; Z98.51 Tubal ligation status; R06.89 Other abnormalities of breathing; Z91.148 Patient's other noncompliance with medication regimen for other reason; R13.10 Dysphagia, unspecified; R53.81 Other malaise; R79.89 Other specified abnormal findings of blood chemistry; R10.9 Unspecified abdominal pain; Z99.81 Dependence on supplemental oxygen
CPT/HCPCS: 71046; 74177; 80053; 81001; 82803; 83036; 83605; 83690; 83735; 83880; 83930; 83935; 84100; 84443; 84484; 85025; 85610; 85730; 87040; 87077; 87086; 87088; 87186; 90937; 92610; 93005; 94640; 96374; 96375; 96376; 97162; 97166; 97802; 99252; 99285; Q9967; A4216; G0257; G0463; J0612; J2405

== ENCOUNTER 2024-10-24 13:05 | Emergency (ER) | payer MEDICARE, MEDICAID, SELFPAY ==
[2024-10-24 13:17] VITALS: BP 116/62; PULSE 79; RESP 18; TEMP 36.2; O2SAT 91; BMI 31.9
[2024-10-24 13:28] VITALS: O2SAT 96
--- NOTE | 2024-10-24 14:11 | ED.RN ---
Dr. Ward requesting more information regarding why patient was sent to ED. dialysis nurse, Eulalia upset having to give report again to this RN due to her already calling report. Eulalia states I already gave report to Pepper, did she not give you report? RN states No, she did I am looking for clarification. Eulalia states I had accessed her fistula and noticed it had infiltrated. Rn state how did you know it infiltrated? Eulalia states there was blood around the site. I tried to access more proximal but unable to feel a thrill. do you have any more questions. Rn asked ifEulalia would hold for Dr. Ward.
--- NOTE | 2024-10-24 14:18 | EX.ED.DYSGE1 ---
HPI History of Present Illness Chief Complaint: Shortness of Breath Narrative Narrative: Patient is a 64-year-old female with a past medical history of COPD, CHF, end-stage renal disease on dialysis Sunday, hypertension, hyperlipidemia, AAA, diabetes who presented to the emergency department via EMS from the dialysis center with concern for a fistula issue. Running to the patient she states that she was getting dialysis and had bleeding noted from the site and they were unable to recannulate her and was concerned for filtration therefore they sent her here for the valuation management. Patient states that she did not complete her full course of dialysis. [facility] Medical History VRE (vancomycin resistant enterococcus) culture positive Decreased urination Hyponatremia COPD exacerbation Hyperkalemia CHF exacerbation Acute and chronic respiratory failure with hypoxia Anemia Pleuritic pain End-stage renal disease on hemodialysis ESRD (end stage renal disease) HLD (hyperlipidemia) HTN (hypertension) Osteoporosis On home oxygen therapy AAA (abdominal aortic aneurysm) Bilateral pleural effusion Acute hypoxemic respiratory failure Substance abuse Diabetes Dialysis patient Sleep apnea Congestive heart failure (CHF) Myocardial infarct Coronary artery disease Migraines Asthma Kidney disease History of high cholesterol Anxiety Depression PTSD (post-traumatic stress disorder) Home Medications ?Medication ?Instructions ?Recorded ?Last Taken ?Type cholecalciferol (vitamin D3) 25 25 mcg PO DAILY SUPPLEMENT 10/02/21 09/28/24 History mcg (1,000 unit) capsule aspirin 81 mg tablet,delayed 81 mg PO DAILY HEART 11/14/22 09/28/24 History release atorvastatin 80 mg tablet 80 mg PO QHS CHOLESTEROL 11/14/22 09/28/24 History clopidogrel 75 mg tablet 75 mg PO DAILY BLOOD THINNER 11/14/22 09/28/24 History nitroglycerin 0.4 mg sublingual 0.4 mg sublingual DAILY PRN CHEST 11/14/22 Unknown History tablet PAIN pantoprazole 40 mg tablet,delayed 40 mg PO DAILY ACID REFLUX 11/14/22 09/28/24 History release vitamin B complex-vitamin C-folic 1 tab PO DAILY SUPPLEMENT 11/14/22 09/28/24 History acid 0.8 mg tablet (Mojgan-Kirk) acetaminophen 325 mg capsule 650 mg PO BID PRN PAIN 08/07/23 09/28/24 History sertraline 25 mg tablet 25 mg PO DAILY DEPRESSION 08/07/23 09/28/24 History calcium acetate 667 mg tablet 667 mg PO TID 10/24/23 09/28/24 History carvedilol 12.5 mg tablet 25 mg PO Q12H 06/02/24 09/28/24 History metoclopramide HCl 10 mg tablet 10 mg PO Q6H PRN nausea and 10/05/24 Unknown Rx (Reglan) vomiting 3 days #12 tabs sucroferric oxyhydroxide 500 mg 1,500 mg PO TID 10/06/24 Unknown History chewable tablet (Velphoro) albuterol sulfate 2.5 mg/3 mL 2.5 mg (3 mL) continuous 10/11/24 09/29/24 Rx (0.083 %) solution for nebulization nebulization Q2H PRN wheezing #1 mL benzocaine 15 mg-menthol 3.6 mg 1 irvin mucous membrane Q4H PRN 10/11/24 Unknown Rx lozenges (Sore Throat (benzocaine mouth/throat sore #0 ea with menthol)) furosemide 80 mg tablet 80 mg PO BID #1 TAB 10/11/24 09/28/24 Rx nystatin 100,000 unit/mL oral 500,000 unit (5 mL) PO 4X/DAY #0 mL 10/11/24 Unknown Rx suspension sulfamethoxazole 400 1 tab PO BID 10/24/24 Unknown History mg-trimethoprim 80 mg tablet Allergy/AdvReac Type Severity Reaction Status Date / Time Latex, Natural Rubber Allergy Rash Verified 10/06/24 21:45 Penicillins Allergy Rash Verified 10/06/24 21:45 Family History Other CAD (coronary artery disease) Heart disease Surgical History History of colectomy History of ligation of vein Hx of umbilical hernia repair History of arteriovenostomy for renal dialysis History of total hysterectomy History of coronary artery stent placement H/O tubal ligation History of section, classical Social History household members: none Smoking Status: Former smoker substance use type: does not use ROS ROS ED ROS Narrative Constitutional: Denies fevers, chills, headaches, lightness, dizziness Eyes: Denies change in vision double vision blurry vision Cardiovascular: Denies chest pain Respiratory: Complaint shortness of breath but states that she chronically short of breath and is at her baseline oxygen requirement Abdomen: Denies nausea vomit diarrhea : Denies urinary symptoms Neurological: Denies numbness, weakness, tingling Musculoskeletal: Denies back pain Skin: Denies any new rashes or lesions EXAM Physical Exam Narrative Exam Narrative: General: Patient was lying in bed rest comfortably did not appear to be acute distress Head: Atraumatic, normocephalic Eyes: PERRL bilaterally, EOMI bilateral, no conjunctival injection noted Neck: Soft, supple, trachea midline Cardiovascular: Regular rate and rhythm Respiratory: Clear to auscultation bilaterally Abdomen: Soft, nondistended, nontender to palpation Extremities: +5/5 strength noted in the bilateral upper and lower extremities, patient has palpable thrill noted in her antecubital fossa and proximally all the way up to the of proximal humerus. Neurological: Patient following commands knew that she was at [facility] year is 2024 Skin: Patient has scattered ecchymosis throughout her extremities Const Vital Signs: 10/24/24 13:17 10/24/24 13:28 Temperature 97.1 F L Temperature Source Temporal Pulse Rate 79 Respiratory Rate 18 Respiratory Effort Normal Respiratory Depth Shallow Respiratory Pattern Normal Blood Pressure 116/62 Blood Pressure Mean 80 Pulse Ox 91 Oxygen Delivery Method Nasal Cannula Oxygen Flow Rate (L/min) 2 MDM MDM MDM Narrative Medical decision making narrative: Patient is a 64-year-old female who presented to the emergency department with chief complaint of a bleeding fistula and not able to recannulate the patient for her full dialysis treatment. On exam once again the patient does not have any active bleeding I do have a palpable thrill noted from her antecubital fossa all the way up to almost her proximal humerus near her armpit. I do feel the thrill above where they attempted to cannulate her this afternoon. I called and discussed with the dialysis center and they state that she was moving around a lot during her session attempting to feed herself and the 1 line became dislodged and they were unable to feel a thrill after this therefore they were concerned and sent her here for the valuation management. I discussed with them and we are not able to provide dialysis in the hospital here this weekend patient seems to be at her baseline. They are able to finish her dialysis session tomorrow. Once again I advised them that I do feel a thrill here in the emergency department and above where they attempted to cannulate her despite them saying that they could not. The patient was discharged back to her facility with instructions to go to dialysis tomorrow and return if worsening symptoms or any concerns. Patient is agreeable this plan all question concerns answered she was discharged home in stable condition. Discharge Plan Triage Chief Complaint: Shortness of Breath ED Provider: Wyatt Ward Dx/Rx/DC Orders Clinical Impression: Dialysis AV fistula malfunction Prescriptions: No Action calcium acetate 667 mg tablet 667 mg PO TID cholecalciferol (vitamin D3) 25 mcg (1,000 unit) capsule 25 mcg PO DAILY atorvastatin 80 mg tablet 80 mg PO QHS clopidogrel 75 mg tablet 75 mg PO DAILY aspirin 81 mg tablet,delayed release (DR/EC) 81 mg PO DAILY pantoprazole 40 mg tablet,delayed release (DR/EC) 40 mg PO DAILY Mojgan-Kirk 0.8 mg tablet 1 tab PO DAILY nitroglycerin 0.4 mg tablet, sublingual 0.4 mg sublingual DAILY PRN (Reason: CHEST PAIN ) Rx Instructions: Dissolve 1 tablet under the tongue as needed for chest pain. sertraline 25 mg tablet 25 mg PO DAILY acetaminophen 325 mg capsule 650 mg PO BID PRN (Reason: PAIN ) carvedilol 12.5 mg tablet 25 mg PO Q12H sulfamethoxazole-trimethoprim 400-80 mg tablet 1 tab PO BID metoclopramide HCl [Reglan] 10 mg tablet 10 mg PO Q6H PRN (Reason: nausea and vomiting) 3 Days Qty: 12 0RF Velphoro 500 mg tablet,chewable 1,500 mg PO TID nystatin 100,000 unit/mL Suspension 500,000 unit PO 4X/DAY Qty: 0 0RF Rx Instructions: take a total of 28 doses then DC Sore Throat (benzocaine-menth) 15-3.6 mg Lozenge 1 irvin mucous membrane Q4H PRN (Reason: mouth/throat sore) Qty: 0 0RF albuterol sulfate 2.5 mg /3 mL (0.083 %) solution for nebulization 2.5 mg continuous nebulization Q2H PRN (Reason: wheezing) Qty: 1 0RF furosemide 80 mg tablet 80 mg PO BID Qty: 1 0RF Primary Care Provider: Elvin Becerra Referrals: Elvin Becerra MD [Primary Care Provider] - Activity Restrictions/Additional Instructions: Here in the emergency department we are able to fill the palpable thrill from your fistula this appears to be working adequately. You should go to dialysis tomorrow they are aware that you will need dialysis tomorrow as I discussed this plan with him and the facility is agreeable with this plan. He should return with worsening symptoms or concerns. Print Language: Czech Disposition Disposition: Home, Self Care
== END 2024-10-24 14:41 | disposition home or self-care (01) ==
LOC: ED 14:24
PROVIDERS: Emergency Provider Emergency Medicine; PCP Family Medicine; Visit Provider Emergency Medicine
DX: R06.02 Shortness of breath (principal); I13.2 Hypertensive heart and chronic kidney disease with heart failure and with stage 5 chronic kidney disease, or end stage renal disease; N18.6 End stage renal disease; I50.9 Heart failure, unspecified; J44.9 Chronic obstructive pulmonary disease, unspecified; E11.22 Type 2 diabetes mellitus with diabetic chronic kidney disease; Z99.2 Dependence on renal dialysis; E78.00 Pure hypercholesterolemia, unspecified; Z87.891 Personal history of nicotine dependence; I25.10 Atherosclerotic heart disease of native coronary artery without angina pectoris; Z90.710 Acquired absence of both cervix and uterus; I25.2 Old myocardial infarction; Z79.82 Long term (current) use of aspirin; Z79.899 Other long term (current) drug therapy; Z79.02 Long term (current) use of antithrombotics/antiplatelets; F41.9 Anxiety disorder, unspecified; F32.A Depression, unspecified; Z90.49 Acquired absence of other specified parts of digestive tract; Z95.5 Presence of coronary angioplasty implant and graft; Z98.51 Tubal ligation status; T82.590A Other mechanical complication of surgically created arteriovenous fistula, initial encounter
CPT/HCPCS: 99284

== ENCOUNTER 2024-10-25 15:13 | Emergency (ER) | payer MEDICARE, MEDICAID, SELFPAY ==
[2024-10-25 15:18] VITALS: BP 116/62; PULSE 55; RESP 16; TEMP 36.7; O2SAT 100; BMI 32.8
--- NOTE | 2024-10-25 15:40 | EX.ED.DYSGE1 ---
HPI History of Present Illness Chief Complaint: General Illness Informant: patient Onset/Context/Timing Onset: Today Context: Gradual Onset Timing: Continuous Quality: Short of breath Location: Chest Worsened by: Exertion, laying flat Relieved by: Nothing Narrative Narrative: Patient presents with shortness of breath that became worse today. Patient states she missed her dialysis appointment today. Patient states she only had a partial dialysis on Sunday. Patient states she is 10 L over her dry weight. Patient states her breathing is worse when she lays flat and worse with any exertion. Patient states she is on home oxygen at 2 L/min. Patient denies any fevers or chills. Patient admits to an episode of nausea and vomiting. Patient admits to chronic pain in her legs from neuropathy. [facility] Medical History VRE (vancomycin resistant enterococcus) culture positive Decreased urination Hyponatremia COPD exacerbation Hyperkalemia CHF exacerbation Acute and chronic respiratory failure with hypoxia Anemia Pleuritic pain End-stage renal disease on hemodialysis ESRD (end stage renal disease) HLD (hyperlipidemia) HTN (hypertension) Osteoporosis On home oxygen therapy AAA (abdominal aortic aneurysm) Bilateral pleural effusion Acute hypoxemic respiratory failure Substance abuse Diabetes Dialysis patient Sleep apnea Congestive heart failure (CHF) Myocardial infarct Coronary artery disease Migraines Asthma Kidney disease History of high cholesterol Anxiety Depression PTSD (post-traumatic stress disorder) Home Medications ?Medication ?Instructions ?Recorded ?Last Taken ?Type cholecalciferol (vitamin D3) 25 25 mcg PO DAILY SUPPLEMENT 10/02/21 09/28/24 History mcg (1,000 unit) capsule aspirin 81 mg tablet,delayed 81 mg PO DAILY HEART 11/14/22 09/28/24 History release atorvastatin 80 mg tablet 80 mg PO QHS CHOLESTEROL 11/14/22 09/28/24 History clopidogrel 75 mg tablet 75 mg PO DAILY BLOOD THINNER 11/14/22 09/28/24 History nitroglycerin 0.4 mg sublingual 0.4 mg sublingual DAILY PRN CHEST 11/14/22 Unknown History tablet PAIN pantoprazole 40 mg tablet,delayed 40 mg PO DAILY ACID REFLUX 11/14/22 09/28/24 History release vitamin B complex-vitamin C-folic 1 tab PO DAILY SUPPLEMENT 11/14/22 09/28/24 History acid 0.8 mg tablet (Mojgan-Kirk) acetaminophen 325 mg capsule 650 mg PO BID PRN PAIN 08/07/23 09/28/24 History sertraline 25 mg tablet 25 mg PO DAILY DEPRESSION 08/07/23 09/28/24 History carvedilol 12.5 mg tablet 25 mg PO .TUTHSASU 06/02/24 09/28/24 History metoclopramide HCl 10 mg tablet 10 mg PO Q6H PRN nausea and 10/05/24 Unknown Rx (Reglan) vomiting 3 days #12 tabs sucroferric oxyhydroxide 500 mg 1,500 mg PO TID 10/06/24 Unknown History chewable tablet (Velphoro) albuterol sulfate 2.5 mg/3 mL 2.5 mg (3 mL) continuous 10/11/24 09/29/24 Rx (0.083 %) solution for nebulization nebulization Q2H PRN wheezing #1 mL benzocaine 15 mg-menthol 3.6 mg 1 irvin mucous membrane Q4H PRN 10/11/24 Unknown Rx lozenges (Sore Throat (benzocaine mouth/throat sore #0 ea with menthol)) furosemide 80 mg tablet 80 mg PO BID #1 TAB 10/11/24 09/28/24 Rx nystatin 100,000 unit/mL oral 500,000 unit (5 mL) PO 4X/DAY #0 mL 10/11/24 Unknown Rx suspension carvedilol 25 mg tablet 25 mg PO QHS 10/25/24 Unknown History gabapentin 300 mg capsule 300 mg PO QHS 10/25/24 Unknown History sennosides 8.6 mg capsule (senna) 8.6 mg PO BID 10/25/24 Unknown History Allergy/AdvReac Type Severity Reaction Status Date / Time Latex, Natural Rubber Allergy Rash Verified 10/06/24 21:45 Penicillins Allergy Rash Verified 10/06/24 21:45 Family History Other CAD (coronary artery disease) Heart disease Surgical History History of colectomy History of ligation of vein Hx of umbilical hernia repair History of arteriovenostomy for renal dialysis History of total hysterectomy History of coronary artery stent placement H/O tubal ligation History of section, classical Social History household members: none Smoking Status: Former smoker substance use type: does not use ROS ROS ED Constitutional Constitutional ED: Denies chills or fever(s) Eyes Eyes: Denies blurry vision or change in vision ENT ENT ED: Denies rhinorrhea or sore throat Cardiovascular Cardiovascular: Reports chest pain; Denies palpitations Respiratory/Chest Respiratory/Chest: Reports cough and dyspnea Gastrointestinal Gastrointestinal: Reports nausea and vomiting Genitourinary Genitourinary ED: Denies dysuria or hematuria Musculoskeletal Musculoskeletal: Reports back pain and neck pain Integumentary Denies abscess or rash Neurologic Neurologic: Denies headache(s) or weakness Allergic/Immunologic Allergic/Immunologic ED: Denies mouth swelling or urticaria EXAM Physical Exam Const Vital Signs: 10/25/24 15:18 10/25/24 15:22 10/25/24 17:57 Temperature 98.0 F Temperature Source Oral Pulse Rate 55 L 54 L Respiratory Rate 16 18 Respiratory Effort Normal Non-Labored Respiratory Pattern Normal Blood Pressure 116/62 115/67 Blood Pressure Mean 80 83 Pulse Ox 100 100 Oxygen Delivery Method Nasal Cannula Nasal Cannula Oxygen Flow Rate (L/min) 4 4 10/25/24 18:26 Temperature 97.8 F Temperature Source Pulse Rate 56 L Respiratory Rate 18 Respiratory Effort Respiratory Pattern Blood Pressure 121/77 H Blood Pressure Mean 91 Pulse Ox 100 Oxygen Delivery Method Oxygen Flow Rate (L/min) Positive well nourished and well developed Constitutional Narrative: BMI is 32.8. General Appearance ED: well developed and NAD HEENT Reports moist mucous membranes Neck supple and no JVD Resp normal respiratory effort Auscultation: diminished lung sounds diffuse Cardio regular rate Palpation: palpable S4 GI non-tender and non-distended Palpation: soft Extremity General Extremety ED: Yes edema; Negative for tenderness General Extremity: edema Neuro oriented x3, CN's II-XII intact bilaterally and no sensory deficits noted Sensorium / Orientation: alert Motor Exam: strength 5/5 throughout Psych mental status grossly normal MDM MDM MDM Narrative Medical decision making narrative: Differential diagnosis includes acute on chronic kidney disease, congestive heart failure, cardiac dysrhythmia, and electrolyte abnormality. EKG will be obtained to assess for cardiac dysrhythmia and cardiac ischemia. Chest x-ray will be obtained to assess for congestive heart failure and pneumonia. CBC will be obtained to assess for leukocytosis and anemia. Basic metabolic profile will be obtained to assess for electrolyte abnormality and renal function. Lab Data Attestation: I reviewed the patient's lab results. Lab results narrative: CBC was reviewed. There is a mild anemia with a hemoglobin of 9.1 and hematocrit of 29.5. Platelets were slightly low at 103. Basic metabolic profile was reviewed. BUN was 65 and creatinine was 3.95. These are improved from previous results. Labs: Laboratory Results - last 24 hr 10/25/24 16:11 WBC 5.4 RBC 2.67 L Hgb 9.1 L Hct 29.5 L MCV 110.5 H MCH 34.1 H MCHC 30.8 L RDW Std Deviation 70.1 H RDW Coeff of Lola 17.2 H Plt Count 103 L MPV 9.6 Immature Gran % (Auto) 1.300 H Neut % (Auto) 82.0 H Lymph % (Auto) 6.6 L [place] % (Auto) 8.9 Eos % (Auto) 0.6 Baso % (Auto) 0.6 Absolute Neuts (auto) 4.5 Absolute Lymphs (auto) 0.36 L Nucleated RBC % 0 Differential Comment SEE COMMENT Platelet Estimate SLT DEC RBC Morphology N CHROM Hypochromasia 1+ Anisocytosis 1+ Macrocytosis 1+ Sodium 136 Potassium 4.4 Chloride Direct 94 L Carbon Dioxide 28.9 Anion Gap 14 BUN 65 H Creatinine 3.95 H Estim Creat Clear Calc 13.50 L Est GFR (MDRD) Non-Af 12 L BUN/Creatinine Ratio 16.5 Glucose 142 H Calcium 9.6 Radiography Chest X-Ray - ED: 2 View, Read by ED Physician, Read by Radiologist and Left Effusion (Versus possible atelectasis versus possible infiltrate) Diagnostic Testing: Clinical Impression(s) from Imaging Studies Chest X-Ray 10/25/24 16:52 IMPRESSION: 1. Cardiomegaly with pulmonary vascular congestion. 2. Left basilar opacity which may represent atelectasis, airspace disease, and/or pleural effusion [facility] and lateral chest x-ray was obtained. There are 2 views. On my independent interpretation, lung carr show left basilar atelectasis versus infiltrate versus effusion. There is normal cardiac silhouette. Bony thorax is normal. Radiologist also interpreted the x-ray and agrees. EKG Initial EKG: Attestation: I personally reviewed and interpreted this EKG as follows: Interpretation: Sinus Bradycardia (56) and Non-Specific ST Changes Comments: EKG was obtained. On my independent interpretation, it showed a sinus bradycardia with a rate of 56. [place] interval, QRS interval, and QTc intervals were all normal. [place] was normal. There are no acute ST or T wave changes. Prior EKG tracings: available for review Prior: Unchanged (10/07/2024) Treatment and Re-Evaluation :: Patient was given a dose of morphine and Zofran. Patient was also requesting a dose of her normal gabapentin. When I asked the patient the dose of her gabapentin, she stated it was 800 mg. This was given. Patient was advised of her findings. Patient is afebrile here. Patient has normal white blood cell count. I do not feel the patient is a pneumonia. It is more likely to be atelectasis and effusion given her history of renal disease. Patient was advised that she is stable for discharge home and can follow-up with her dialysis on Sunday as scheduled. Patient was instructed to return if worse in any way. Patient understood and was agreeable with plan. All questions were answered. Discharge Plan Triage Chief Complaint: General Illness ED Provider: Amrit Puente Dx/Rx/DC Orders Clinical Impression: Chronic kidney disease, Neuropathy Instructions: ED Chronic Kidney Disease (CKD) Prescriptions: No Action cholecalciferol (vitamin D3) 25 mcg (1,000 unit) capsule 25 mcg PO DAILY atorvastatin 80 mg tablet 80 mg PO QHS clopidogrel 75 mg tablet 75 mg PO DAILY aspirin 81 mg tablet,delayed release (DR/EC) 81 mg PO DAILY pantoprazole 40 mg tablet,delayed release (DR/EC) 40 mg PO DAILY Mojgan-Kirk 0.8 mg tablet 1 tab PO DAILY nitroglycerin 0.4 mg tablet, sublingual 0.4 mg sublingual DAILY PRN (Reason: CHEST PAIN ) Rx Instructions: Dissolve 1 tablet under the tongue as needed for chest pain. sertraline 25 mg tablet 25 mg PO DAILY acetaminophen 325 mg capsule 650 mg PO BID PRN (Reason: PAIN ) carvedilol 12.5 mg tablet 25 mg PO .TUTHSASU Rx Instructions: IN THE MORNINGS OF TUTHSASU metoclopramide HCl [Reglan] 10 mg tablet 10 mg PO Q6H PRN (Reason: nausea and vomiting) 3 Days Qty: 12 0RF Velphoro 500 mg tablet,chewable 1,500 mg PO TID nystatin 100,000 unit/mL Suspension 500,000 unit PO 4X/DAY Qty: 0 0RF Patient Comments: END DATE 11/07/24 Rx Instructions: take a total of 28 doses then DC Sore Throat (benzocaine-menth) 15-3.6 mg Lozenge 1 irvin mucous membrane Q4H PRN (Reason: mouth/throat sore) Qty: 0 0RF albuterol sulfate 2.5 mg /3 mL (0.083 %) solution for nebulization 2.5 mg continuous nebulization Q2H PRN (Reason: wheezing) Qty: 1 0RF furosemide 80 mg tablet 80 mg PO BID Qty: 1 0RF carvedilol 25 mg tablet 25 mg PO QHS Rx Instructions: must administer with a meal/food gabapentin 300 mg capsule 300 mg PO QHS senna 8.6 mg capsule 8.6 mg PO BID Primary Care Provider: Elvin Becerra Referrals: Elvin Becerra MD [Primary Care Provider] - 5-7 Days Activity Restrictions/Additional Instructions: Follow-up with your scheduled dialysis on Sunday. Print Language: Wolof Disposition Disposition: Home, Self Care Discharge Date/Time: 10/25/24 21:17
--- NOTE | 2024-10-25 15:50 | EKG12_ITS ---
Test Reason : general Blood Pressure : */* mmHG Vent. Rate : 56 BPM Atrial Rate : 56 BPM P-R Int : 196 ms QRS Dur : 110 ms QT Int : 446 ms P-R-T Axes : 64 63 253 degrees QTcB Int : 430 ms Sinus bradycardia Nonspecific ST abnormality Abnormal QRS-T angle, consider primary T wave abnormality Abnormal ECG Confirmed by Jason Birch ([id number]), book editor BENNY WATKINS ([id number]) on 10/27/2024 7:04:47 AM Referred By: Confirmed By: Jason Birch
[2024-10-25 16:24] LABS: Absolute Lymphocyte Count 0.36 X10^3/uL (0.83-4.51); Absolute Neutrophil Count 4.5 X10^3/uL (2.0-7.7); Basophil# 0.03 X10^3/uL; Basophil% 0.6 % (0-1); Eosinophil# 0.03 X10^3/uL; Eosinophils% 0.6 % (0-5); Hematocrit 29.5 % (37-47); Hemoglobin 9.1 g/dL (12.0-15.0); Lymphocyte # 0.36 X10^3/ul (0.83-4.51); Lymphocyte % 6.6 % (19-41); Mean Corp Hgb Conc 30.8 g/dL (32-36); Mean Corpuscular Hgb 34.1 pg (27.0-32.0); Mean Corpuscular Volume 110.5 fL (81-99); Mean Platelet Vol. 9.6 fl (6.2-12.0); Monocyte# 0.48 X10^3/uL; Monocyte% 8.9 % (0-10); NRBC Flagged by Analyzer 0 % (0-5); Neutrophil # 4.45 X10^3/uL (2.7-7.7); POSITIVE DIFFERENTIAL YES; POSITIVE MORPHOLOGY YES; Platelet Count 103 K/mm3 (150-450); RBC Distribution Width CV 17.2 % (11.6-14.6); RBC Distribution Width SD 70.1 fl (35.1-43.9); Red Blood Count 2.67 M/mm3 (4.2-5.4); White Blood Count 5.4 K/mm3 (4.4-11.0)
[2024-10-25] MEDS: Ondansetron 4 MG/2 ML Vial IV (16:40)
[2024-10-25] MEDS: Morphine 4 MG/ML Syringe IV (16:41)
[2024-10-25 16:44] LABS: Anion Gap 14 (5-15); BUN 65 mg/dL (4-19); BUN/Creat Ratio 16.5 RATIO (10-20); Calcium 9.6 mg/dL (7.6-11.0); Carbon Dioxide 28.9 mmol/L (22.0-29.0); Chloride 94 mmol/L (96-108); Creatinine, Serum 3.95 mg/dL (0.70-1.20); EST Glomerular Filtration Rate 12 (>60); Glucose 142 mg/dL (70-99); Potassium 4.4 mmol/L (3.3-5.1); Sodium Level 136 mmol/L (133-145)
--- NOTE | 2024-10-25 16:52 | RAD_ITS ---
PROCEDURE: CHEST PA AND LATERAL REASON FOR EXAM: Dyspnea TECHNIQUE: Frontal and lateral views of the chest. COMPARISON: 10/07/2024 FINDINGS: Heart size is moderately enlarged. There are atherosclerotic calcifications of the thoracic aorta. Pulmonary vasculature is congested. Left basilar opacity. Degenerative changes are identified within the thoracic spine. RAD/Chest PA and Lateral IMPRESSION: 1. Cardiomegaly with pulmonary vascular congestion. 2. Left basilar opacity which may represent atelectasis, airspace disease, and /or pleural effusion Reading Location: [facility]
[2024-10-25 16:59] LABS: Differential Indicated SCAN CRITERIA MET
[2024-10-25 17:09] LABS: Anisocytosis 1+; Hypochromasia 1+; Macrocytosis 1+; Platelet Estimate SLT DEC (ADEQ); Red Cell Morphology N CHROM NORMAL (NORM C&C)
[2024-10-25] MEDS: Gabapentin 800 MG Tablet PO (17:56)
[2024-10-25 17:57] VITALS: BP 115/67; PULSE 54; RESP 18; O2SAT 100
[2024-10-25 18:26] VITALS: BP 121/77; PULSE 56; RESP 18; TEMP 36.6; O2SAT 100
--- NOTE | 2024-10-25 18:45 | ED.RN ---
attempted to call nurse report to facility with no answer.
--- NOTE | 2024-10-25 21:15 | ED.RN ---
attempted to call nurse report to [facility] with no answer. Phone kept ringing without an option to leave a voicemail.
== END 2024-10-25 21:17 | disposition home or self-care (01) ==
PROVIDERS: Emergency Provider Emergency Medicine; PCP Family Medicine; Visit Provider Emergency Medicine
DX: R06.02 Shortness of breath (principal); I13.2 Hypertensive heart and chronic kidney disease with heart failure and with stage 5 chronic kidney disease, or end stage renal disease; N18.6 End stage renal disease; I50.9 Heart failure, unspecified; J44.9 Chronic obstructive pulmonary disease, unspecified; E11.40 Type 2 diabetes mellitus with diabetic neuropathy, unspecified; E11.22 Type 2 diabetes mellitus with diabetic chronic kidney disease; E78.00 Pure hypercholesterolemia, unspecified; R11.2 Nausea with vomiting, unspecified; Z90.710 Acquired absence of both cervix and uterus; Z87.891 Personal history of nicotine dependence; I25.10 Atherosclerotic heart disease of native coronary artery without angina pectoris; Z99.2 Dependence on renal dialysis; Z79.82 Long term (current) use of aspirin; Z79.899 Other long term (current) drug therapy; Z79.02 Long term (current) use of antithrombotics/antiplatelets; I25.2 Old myocardial infarction; F41.9 Anxiety disorder, unspecified; F32.A Depression, unspecified; Z95.5 Presence of coronary angioplasty implant and graft; Z90.49 Acquired absence of other specified parts of digestive tract; Z98.51 Tubal ligation status
CPT/HCPCS: 71046; 80048; 85025; 93005; 96374; 96375; 99285; A4216; J2405

== ENCOUNTER 2024-10-25 22:57 | Emergency (ER) | payer MEDICARE, MEDICAID, SELFPAY ==
[2024-10-25 22:58] VITALS: BP 109/70; PULSE 53; RESP 16; TEMP 36.2; O2SAT 92; BMI 34.0
--- NOTE | 2024-10-25 23:30 | EKG12_ITS ---
Test Reason : Blood Pressure : */* mmHG Vent. Rate : 53 BPM Atrial Rate : 53 BPM P-R Int : 190 ms QRS Dur : 102 ms QT Int : 448 ms P-R-T Axes : 53 60 210 degrees QTcB Int : [address] & T wave abnormality, consider inferolateral ischemia Abnormal ECG Confirmed by Jason Birch ([id number]), technical writer and editor DON JEFFREY ([id number]) on 10/27/2024 6:54:20 AM Referred By: Confirmed By: Jason Birch
--- NOTE | 2024-10-25 23:32 | ED.VIS.DYS ---
HPI History of Present Illness Chief Complaint: Shortness of Breath Informant: patient and EMS Narrative Narrative: 64-year-old [facility]. Apparently she was seen here earlier for the same, but we do not have dialysis here this weekend and it is Sunday night, she was deemed stable enough to wait until her next scheduled dialysis on Sunday, and the [facility] staff disagree and sent her back. Apparently she is a Sunday dialysis patient, she accidentally pulled the dialysis needles out of her fistula yesterday on Sunday and did not finish dialysis, so they sent her in today to hopefully get a make up dialysis session. At this time, I am not able to get the patient to answer any questions due to somnolence. Nursing states that 5 minutes or less before I entered the room, she was repeatedly asking them for sandwich. [facility] Medical History VRE (vancomycin resistant enterococcus) culture positive Decreased urination Hyponatremia COPD exacerbation Hyperkalemia CHF exacerbation Acute and chronic respiratory failure with hypoxia Anemia Pleuritic pain End-stage renal disease on hemodialysis ESRD (end stage renal disease) HLD (hyperlipidemia) HTN (hypertension) Osteoporosis On home oxygen therapy AAA (abdominal aortic aneurysm) Bilateral pleural effusion Acute hypoxemic respiratory failure Substance abuse Diabetes Dialysis patient Sleep apnea Congestive heart failure (CHF) Myocardial infarct Coronary artery disease Migraines Asthma Kidney disease History of high cholesterol Anxiety Depression PTSD (post-traumatic stress disorder) Home Medications ?Medication ?Instructions ?Recorded ?Last Taken ?Type cholecalciferol (vitamin D3) 25 25 mcg PO DAILY SUPPLEMENT 10/02/21 09/28/24 History mcg (1,000 unit) capsule aspirin 81 mg tablet,delayed 81 mg PO DAILY HEART 11/14/22 09/28/24 History release atorvastatin 80 mg tablet 80 mg PO QHS CHOLESTEROL 11/14/22 09/28/24 History clopidogrel 75 mg tablet 75 mg PO DAILY BLOOD THINNER 11/14/22 09/28/24 History nitroglycerin 0.4 mg sublingual 0.4 mg sublingual DAILY PRN CHEST 11/14/22 Unknown History tablet PAIN pantoprazole 40 mg tablet,delayed 40 mg PO DAILY ACID REFLUX 11/14/22 09/28/24 History release vitamin B complex-vitamin C-folic 1 tab PO DAILY SUPPLEMENT 11/14/22 09/28/24 History acid 0.8 mg tablet (Mojgan-Kirk) acetaminophen 325 mg capsule 650 mg PO BID PRN PAIN 08/07/23 09/28/24 History sertraline 25 mg tablet 25 mg PO DAILY DEPRESSION 08/07/23 09/28/24 History carvedilol 12.5 mg tablet 25 mg PO .TUTHSASU 06/02/24 09/28/24 History metoclopramide HCl 10 mg tablet 10 mg PO Q6H PRN nausea and 10/05/24 Unknown Rx (Reglan) vomiting 3 days #12 tabs sucroferric oxyhydroxide 500 mg 1,500 mg PO TID 10/06/24 Unknown History chewable tablet (Velphoro) albuterol sulfate 2.5 mg/3 mL 2.5 mg (3 mL) continuous 10/11/24 09/29/24 Rx (0.083 %) solution for nebulization nebulization Q2H PRN wheezing #1 mL benzocaine 15 mg-menthol 3.6 mg 1 irvin mucous membrane Q4H PRN 10/11/24 Unknown Rx lozenges (Sore Throat (benzocaine mouth/throat sore #0 ea with menthol)) furosemide 80 mg tablet 80 mg PO BID #1 TAB 10/11/24 09/28/24 Rx nystatin 100,000 unit/mL oral 500,000 unit (5 mL) PO 4X/DAY #0 mL 10/11/24 Unknown Rx suspension carvedilol 25 mg tablet 25 mg PO QHS 10/25/24 Unknown History gabapentin 300 mg capsule 300 mg PO QHS 10/25/24 Unknown History sennosides 8.6 mg capsule (senna) 8.6 mg PO BID 10/25/24 Unknown History Allergy/AdvReac Type Severity Reaction Status Date / Time Latex, Natural Rubber Allergy Rash Verified 10/06/24 21:45 Penicillins Allergy Rash Verified 10/06/24 21:45 Family History Other CAD (coronary artery disease) Heart disease Surgical History History of colectomy History of ligation of vein Hx of umbilical hernia repair History of arteriovenostomy for renal dialysis History of total hysterectomy History of coronary artery stent placement H/O tubal ligation History of section, classical Social History household members: none Smoking Status: Former smoker substance use type: does not use ROS ROS ED Review of Systems ROS Unobtainable: due to mental status EXAM Physical Exam Const Vital Signs: 10/25/24 22:58 10/25/24 22:58 10/26/24 00:58 Temperature 97.2 F L Temperature Source Temporal Pulse Rate 53 L 55 L Respiratory Rate 16 20 H Respiratory Effort Normal Non-Labored Respiratory Depth Normal Respiratory Pattern Normal Blood Pressure 109/70 118/63 Blood Pressure Mean 83 81 Pulse Ox 92 93 Oxygen Delivery Method Nasal Cannula Room Air Nasal Cannula Oxygen Flow Rate (L/min) 2 10/26/24 02:00 10/26/24 04:00 10/26/24 04:00 Temperature Temperature Source Pulse Rate 57 L Respiratory Rate 19 H Respiratory Effort Respiratory Depth Respiratory Pattern Blood Pressure 119/62 Blood Pressure Mean 81 Pulse Ox 93 87 92 Oxygen Delivery Method Nasal Cannula Nasal Cannula Nasal Cannula Oxygen Flow Rate (L/min) 2 2 3 10/26/24 04:10 Temperature Temperature Source Pulse Rate 65 Respiratory Rate Respiratory Effort Respiratory Depth Respiratory Pattern Blood Pressure 119/57 L Blood Pressure Mean 77 Pulse Ox Oxygen Delivery Method Oxygen Flow Rate (L/min) Positive well nourished and well developed Constitutional Narrative: somnolent, difficult to arouse; waxes and wanes; at one point opens eyes to voice, but subsequently, will not respond to light stim. Good spontaneous respirations. General Appearance ED: well developed HEENT Reports moist mucous membranes normocephalic and atraumatic Eyes PERRL and EOMs intact bilaterally Neck full ROM, supple, no meningeal signs and no JVD Chest Wall Chest Narrative: Ecchymotic chest wall no crepitance Resp normal respiratory effort Resp Narrative: Diffuse expiratory wheezes, no rales or rhonchi Cardio regular rate and regular rhythm GI non-tender and non-distended Auscultation: normoactive bowel sounds Palpation: soft Back/Spine no CVA tenderness General Back: other FROM Extremity General Extremety ED: Yes edema; Negative for pulses abnormal or tenderness General Extremity: edema bilateral upper extremity moderate and lower extremity Details: moderate; Negative for pulses abnormal Neuro CN's II-XII intact bilaterally and no sensory deficits noted Neuro Narrative: Localizes to painful stimuli all 4 extremities. Lethargic. Sensorium / Orientation: awake and alert Motor Exam: general weakness Skin no wounds MDM MDM MDM Narrative Medical decision making narrative: Patient is somnolent; I obtained repeat chest x-ray, which shows some minor bibasilar opacities, these are nonspecific, they may represent fluid overload but she is in no respiratory distress and she is not coughing. Her vital signs are normal while on the 2 L of oxygen that she came with. I did a ABG, respiratory was only able to get a venous specimen, but her pH is 7.27, which is mildly acidotic but does not represent a significant amount of hypercarbia to suggest that is why she is somnolent. Her EKG shows sinus rhythm in the 50s, there is no acute injury pattern, her troponins are similar, the initial 1 was 215 and the second 1 was 220. After speaking with the physician who saw her earlier before he went off shift, he gave her a gabapentin at the patient's request several hours ago, and asked how much she took and she told him 800 mg which is what she was given here. Seems according to her medication list that she is only on 300 mg. This could explain her somnolence. Unfortunately we do not have the ability to dialyze the patient here at this time nor this next day in the hospital. Most of the nearest hospitals have no available beds right now, of the ones that would be able to do dialysis. I observed her for a little while and repeated her VBG to reassess whether she was becoming more hypercarbic or not without ventilatory assistance. She is not. Her pCO2 went down and her pH went up, closer to normal/neutral. I discussed all this with Dr. Vazquez. He agrees that if I cannot find a place for her to get transferred to for dialysis, it would be reasonable to watch her here in the ER until Sunday morning when he could arrange for her to be transferred to the local [facility] dialysis center first thing. He also agrees that the patient does not need emergent dialysis. I reviewed her labs from earlier in the day, she is not hyperkalemic and I do not think I need to repeat those emergently right now. I discussed with FLY SETTER covering for Dr. Nunez at [facility], they accept the patient. Awaiting bed availability for transfer and will continue to monitor the patient. Her third troponin is lower. History & Record Review Additional record(s) reviewed:: Prior ED visit Lab Data Attestation: I reviewed the patient's lab results. Labs: Laboratory Results - last 24 hr 10/25/24 10/26/24 10/26/24 23:38 01:46 04:29 Troponin T High Sens 215 H* Troponin T Hi Sens 2 Hr 220 H* Troponin T Hi Sens 2Hr Delta 5 Troponin T Hi Sens 4Hr 209 H* Troponin T Hi Sens 4Hr Delta 6 ABG Data ABG results: ABG 10/25/24 10/26/24 23:55 03:04 Specimen Type SORAYA SORAYA Sample Site Not entered Not entered O2 % 2.0 2.0 VBG pH 7.27 L 7.33 VBG pO2 30 35 VBG HCO3 36 H 35 H VBG Total CO2 38 H 37 H VBG O2 Sat (Calc) 45 L 60 VBG Base Excess 9 H 9 H POC Mix VBG pCO2 Pt Tmp 77.6 H* 66.6 H O2 Delivery Device Cannula Cannula Crit Call To/Read Back Yes Blood Gas Notified Whom horacio Blood Gas Notified Time 23:57:27 Radiography Diagnostic Testing: Clinical Impression(s) from Imaging Studies Chest X-Ray 10/25/24 23:59 IMPRESSION: MILD BIBASILAR AIRSPACE OPACITIES, NONSPECIFIC AND COULD BE DUE TO ATELECTASIS, PNEUMONIA, OR EDEMA. TRACE LEFT PLEURAL EFFUSION. CARDIOMEGALY. Reading Location: [id number] Rhythm Strip Rhythm Strip: Sinus Rhythm Rate: 55 Ectopy: None EKG Initial EKG: Attestation: I personally reviewed and interpreted this EKG as follows: Interpretation: Sinus Rhythm, No Acute Injury Pattern and Non-Specific ST Changes Management Discussion w/another healthcare provider: Face Hardener (nephrology Dr. Noriega) Discharge Plan Triage Chief Complaint: Shortness of Breath ED Provider: Fabio Cherry Dx/Rx/DC Orders Clinical Impression: Somnolence, ESRD (end stage renal disease) on dialysis, Edema of extremity, Pulmonary edema Prescriptions: No Action cholecalciferol (vitamin D3) 25 mcg (1,000 unit) capsule 25 mcg PO DAILY atorvastatin 80 mg tablet 80 mg PO QHS clopidogrel 75 mg tablet 75 mg PO DAILY aspirin 81 mg tablet,delayed release (DR/EC) 81 mg PO DAILY pantoprazole 40 mg tablet,delayed release (DR/EC) 40 mg PO DAILY Mojgan-Kirk 0.8 mg tablet 1 tab PO DAILY nitroglycerin 0.4 mg tablet, sublingual 0.4 mg sublingual DAILY PRN (Reason: CHEST PAIN ) Rx Instructions: Dissolve 1 tablet under the tongue as needed for chest pain. sertraline 25 mg tablet 25 mg PO DAILY acetaminophen 325 mg capsule 650 mg PO BID PRN (Reason: PAIN ) carvedilol 12.5 mg tablet 25 mg PO .TUTHSASU Rx Instructions: IN THE MORNINGS OF TUTHSASU metoclopramide HCl [Reglan] 10 mg tablet 10 mg PO Q6H PRN (Reason: nausea and vomiting) 3 Days Qty: 12 0RF Velphoro 500 mg tablet,chewable 1,500 mg PO TID nystatin 100,000 unit/mL Suspension 500,000 unit PO 4X/DAY Qty: 0 0RF Patient Comments: END DATE 11/07/24 Rx Instructions: take a total of 28 doses then DC Sore Throat (benzocaine-menth) 15-3.6 mg Lozenge 1 irvin mucous membrane Q4H PRN (Reason: mouth/throat sore) Qty: 0 0RF albuterol sulfate 2.5 mg /3 mL (0.083 %) solution for nebulization 2.5 mg continuous nebulization Q2H PRN (Reason: wheezing) Qty: 1 0RF furosemide 80 mg tablet 80 mg PO BID Qty: 1 0RF carvedilol 25 mg tablet 25 mg PO QHS Rx Instructions: must administer with a meal/food gabapentin 300 mg capsule 300 mg PO QHS senna 8.6 mg capsule 8.6 mg PO BID Primary Care Provider: Elvin Becerra Referrals: Elvin Becerra MD [Primary Care Provider] - Print Language: Citizen Of [place] Disposition Disposition: Acute Care Hospital Discharge Location: [facility]
[2024-10-25 23:59] LABS: Blood Gas Specimen Type VEN; O2 Delivery Device Cannula; SITE Not entered; VBG BASE EXCESS 9 mmol/L (-1.0-3.5); VBG Bicarbonate 36 mmol/L (22-26); VBG PO2 30 mmHg (25-40); VBG SO2 45 % (50-70); VBG TCO2 38 mmol/L (23-33); VBG pCO2 77.6 mmHg (41-51); VBG pH 7.27 (7.32-7.42)
--- NOTE | 2024-10-25 23:59 | RAD_ITS ---
PROCEDURE: CHEST 1 VIEW (PORTABLE) REASON FOR EXAM: Dyspnea. TECHNIQUE: Frontal view of the chest. COMPARISON: 10/25/2024 at 1656 hours. FINDINGS: Cardiomegaly. Hyperinflated lungs. Bibasilar airspace opacities, right worse than left, similar to previous. Trace left pleural effusion. No pneumothorax. Calcified aortic knob. No acute osseous or upper abdominal abnormality. RAD/Chest 1 View (Portable) IMPRESSION: MILD BIBASILAR AIRSPACE OPACITIES, NONSPECIFIC AND COULD BE DUE TO ATELECTASIS, PNEUMONIA, OR EDEMA. TRACE LEFT PLEURAL EFFUSION. CARDIOMEGALY. Reading Location: [id number]
[2024-10-26 00:24] LABS: Troponin T High Sensitivity 215 ng/L (<=14)
[2024-10-26 00:58] VITALS: BP 118/63; PULSE 55; RESP 20; O2SAT 93
[2024-10-26 02:00] VITALS: BP 119/62; PULSE 57; RESP 19; O2SAT 93
[2024-10-26 02:24] LABS: TROPONIN VARIANCE 2 HR 5; Troponin T High Sens 2 HR 220 ng/L (<=14)
[2024-10-26 03:08] LABS: Blood Gas Specimen Type VEN; O2 Delivery Device Cannula; SITE Not entered; VBG BASE EXCESS 9 mmol/L (-1.0-3.5); VBG Bicarbonate 35 mmol/L (22-26); VBG PO2 35 mmHg (25-40); VBG SO2 60 % (50-70); VBG TCO2 37 mmol/L (23-33); VBG pCO2 66.6 mmHg (41-51); VBG pH 7.33 (7.32-7.42)
[2024-10-26 04:00] VITALS: O2SAT 87; O2SAT 92
[2024-10-26 04:10] VITALS: BP 119/57; PULSE 65
[2024-10-26 04:53] LABS: TROPONIN VARIANCE 4 HR 6; Troponin T High Sens 4 HR 209 ng/L (<=14)
--- NOTE | 2024-10-26 05:33 | ED.RN ---
CALLED [facility], ASKED IF [facility] HAD DIALYSIS AVAILABLE. EUGENE Fischer THE TRANSFER C[facility] SAID THEY DID HAVE SERVICES. FAXED FACE SHEET, WAITING CALL BACK TO BEGIN CASE.
[2024-10-26 06:00] VITALS: BP 108/68; PULSE 72; RESP 20; O2SAT 93
[2024-10-26 07:44] LABS: Bedside Glucose 102 mg/dL (74-106)
[2024-10-26 07:51] VITALS: BP 107/59; PULSE 65; RESP 18; TEMP 36.6; O2SAT 98
== END 2024-10-26 08:31 | disposition short-term general hospital (02) ==
PROVIDERS: Emergency Provider Emergency Medicine; PCP Family Medicine; Visit Provider Emergency Medicine
DX: R06.02 Shortness of breath (principal); I13.2 Hypertensive heart and chronic kidney disease with heart failure and with stage 5 chronic kidney disease, or end stage renal disease; N18.6 End stage renal disease; I50.9 Heart failure, unspecified; J44.9 Chronic obstructive pulmonary disease, unspecified; E11.22 Type 2 diabetes mellitus with diabetic chronic kidney disease; Z90.710 Acquired absence of both cervix and uterus; Z99.2 Dependence on renal dialysis; I25.10 Atherosclerotic heart disease of native coronary artery without angina pectoris; E78.00 Pure hypercholesterolemia, unspecified; Z87.891 Personal history of nicotine dependence; J81.1 Chronic pulmonary edema; I25.2 Old myocardial infarction; Z79.82 Long term (current) use of aspirin; Z79.899 Other long term (current) drug therapy; Z79.02 Long term (current) use of antithrombotics/antiplatelets; F41.9 Anxiety disorder, unspecified; F32.A Depression, unspecified; Z90.49 Acquired absence of other specified parts of digestive tract; Z95.5 Presence of coronary angioplasty implant and graft; Z98.51 Tubal ligation status
CPT/HCPCS: 71045; 82803; 82962; 84484; 93005; 99285; A4216

== ENCOUNTER 2024-11-17 15:52 | Emergency (ER) | payer MEDICARE, MEDICAID, SELFPAY ==
[2024-11-17 15:53] VITALS: BP 102/44; PULSE 65; RESP 20; TEMP 36.6; O2SAT 90; BMI 31.4
--- NOTE | 2024-11-17 16:05 | EKG12_ITS ---
Test Reason : Blood Pressure : */* mmHG Vent. Rate : 78 BPM Atrial Rate : 78 BPM P-R Int : 220 ms QRS Dur : 108 ms QT Int : 470 ms P-R-T Axes : 26 72 102 degrees QTcB Int : 535 ms Sinus rhythm with 1st degree A-V block ST depression, consider subendocardial injury Prolonged QT Abnormal ECG Confirmed by ISABELLA LENNON, ANDREA ([id number]), editor continuity and script DON JEFFREY ([id number]) on 11/19/2024 8:17:13 AM Referred By: Reggie Quintanilla Confirmed By: ANDREA MASON MD
--- NOTE | 2024-11-17 16:06 | EDS_ITS ---
HPI HPI - GI History of Present Illness Chief Complaint: Abd Pain Narrative Narrative: 64-year-old female past medical history of diabetes, end-stage renal disease, on dialysis, was at dialysis today and approximately 2 hours ago developed epigastric pain. She states she was able to complete her dialysis or maybe had about 10 minutes left when they brought her to the emergency department because of the epigastric pain. She vomited 3 or 4 times and is now dry heaving. She is describing sharp, stabbing pain in the epigastrium. No recent fevers or chills. She states that the pain is so severe that it is affecting her concentration and she cannot recall if she has had any abdominal surgeries. Of note, she states that she was recently released from [facility] where she had her esophagus dilated approximately 1 week ago. [facility] Medical History VRE (vancomycin resistant enterococcus) culture positive Decreased urination Hyponatremia COPD exacerbation Hyperkalemia CHF exacerbation Acute and chronic respiratory failure with hypoxia Anemia Pleuritic pain End-stage renal disease on hemodialysis ESRD (end stage renal disease) HLD (hyperlipidemia) HTN (hypertension) Osteoporosis On home oxygen therapy AAA (abdominal aortic aneurysm) Bilateral pleural effusion Acute hypoxemic respiratory failure Substance abuse Diabetes Dialysis patient Sleep apnea Congestive heart failure (CHF) Myocardial infarct Coronary artery disease Migraines Asthma Kidney disease History of high cholesterol Anxiety Depression PTSD (post-traumatic stress disorder) Home Medications ?Medication ?Instructions ?Recorded ?Last Taken ?Type cholecalciferol (vitamin D3) 25 25 mcg PO DAILY SUPPLE MENT 10/02/21 09/28/24 History mcg (1,000 unit) capsule aspirin 81 mg tablet,delayed 81 mg PO DAILY HEART 10/2609/28/24 History release atorvastatin 80 mg tablet 80 mg PO QHS CHOLESTEROL 09/28/24 History clopidogrel 75 mg tablet 75 mg PO DAILY BLOOD THINNER 11/14/22 09/28/24 History nitroglycerin 0.4 mg sublingual 0.4 mg sublingual ELLEN Y PRN CHEST 11/14/22 Unknown History tablet PAIN pantoprazole 40 mg tablet,delayed 40 mg PO BID ACID RE FLUX 11/14/22 09/28/24 History release vitamin B complex-vitamin C-folic 1 tab PO DAILY SUPPL EMENT 11/14/22 09/28/24 History acid 0.8 mg tablet (Mojgan-Kirk) sertraline 25 mg tablet 25 mg PO DAILY DEPRESSION 09/28/24 History carvedilol 12.5 mg tablet 25 mg PO TUTHSA 06/02/2410/21 History metoclopramide HCl 10 mg tablet 10 mg PO Q6H PRN nause a and 10/05/24 Unknown Rx (Reglan) vomiting 3 days #12 tabs sucroferric oxyhydroxide 500 mg 1,500 mg PO TID Unknown History chewable tablet (Velphoro) albuterol sulfate 2.5 mg/3 mL 2.5 mg (3 mL) continuous 10/11/24 09/29/24 Rx (0.083 %) solution for nebulization nebulization Q2H P RN wheezing #1 mL benzocaine 15 mg-menthol 3.6 mg 1 irvin mucous membrane Q4H PRN 10/11/24 Unknown Rx lozenges (Sore Throat (benzocaine mouth/throat sore #0 ea with menthol)) furosemide 80 mg tablet 80 mg PO BID #1 TAB 10/11/24 09/28/24 Rx nystatin 100,000 unit/mL oral 500,000 unit (5 mL) PO 4 X/DAY #0 mL 10/11/24 Unknown Rx suspension carvedilol 25 mg tablet 25 mg PO QHS 10/25/24 Unknow n History acetaminophen 500 mg capsule 1,000 mg PO Q6H PRN fever or pain 11/17/24 Unknown History amiodarone 200 mg tablet 200 mg PO DAILY 11/17/24 Unk nown History gabapentin 100 mg capsule 200 mg PO QHS 11/17/24 Unkno wn History metoprolol succinate 25 mg 25 mg PO DAILY 11/17/24 Unk nown History tablet,extended release 24 hr ondansetron HCl 8 mg tablet 8 mg PO Q8H PRN PRN nausea /vomiting 11/17/24 Unknown History oxycodone 5 mg tablet 5 mg PO 4X/DAY PRN PRN pain 11/17/24 Unknown History sucralfate 1 gram tablet 1 g PO BID 11/17/24 Unknown History Allergy/AdvReac Type Severity Reaction Status Date / Time Latex, Natural Rubber Allergy Rash Verified 10/06/24 21:45 Penicillins Allergy Rash Verified 10/06/24 21:45 Family History Other CAD (coronary artery disease) Heart disease Surgical History History of colectomy History of ligation of vein Hx of umbilical hernia repair History of arteriovenostomy for renal dialysis History of total hysterectomy History of coronary artery stent placement H/O tubal ligation History of section, classical Social History household members: none Smoking Status: Former smoker substance use type: does not use ROS ROS ED ROS Narrative Review of systems positive for nausea, vomiting, and dry heaving, no hematemesis. No fevers or chills. Positive epigastric abdominal pain described as sharp and stabbing. No exacerbating or alleviating factors. Denies other symptoms. EXAM Physical Exam Narrative Exam Narrative: Afebrile. Vital signs noted. Nontoxic-appearing. Cardiovascular examination reveals a regular rate and rhythm. Lungs are clear to auscultation bilaterally. The abdomen is soft with tenderness to palpation in the epigastrium, no crepitance. No guarding or rebound. Positive bowel sounds. Neurological examination is nonfocal and nonlateralizing. Continually moaning in between speaking full sentences and answering questions. Const Vital Signs: 11/17/24 15:53 11/17/24 18:07 11/17/24 20:00 Temperature 97.8 F Temperature Source Oral Pulse Rate 65 66 64 Respiratory Rate 20 H 16 18 Blood Pressure 102/44 L 144/63 H 114/68 Blood Pressure Mean 63 90 83 Pulse Ox 90 99 97 Oxygen Delivery Method Nasal Cannula Room Air Nasal Cannula Oxygen Flow Rate (L/min) 2 2 11/17/24 20:00 Temperature 98.0 F Temperature Source Pulse Rate 64 Respiratory Rate 18 Blood Pressure 114/68 Blood Pressure Mean 83 Pulse Ox 97 Oxygen Delivery Method Oxygen Flow Rate (L/min) MDM MDM MDM Narrative Medical decision making narrative: The differential diagnosis includes but not limited to pancreatitis versus esophageal perforation versus bowel obstruction versus gastritis. I have very low suspicion for any electrolyte disturbance as she completed/nearly completed dialysis prior to arrival. As she finished dialysis, I am hesitant to bolus her a full liter, but she is not tachycardic currently. She was administered morphine and ondansetron for analgesia. I do feel CT imaging is indicated to help rule out obstruction. CBC, CMP, and lipase were also obtained. EKG obtained interpreted by myself independently as sinus rhythm with first-degree AV block at [address] changes. She does have mild ST depression diffusely. I reviewed her laboratory work and she has slight elevation of her white count at 11.9 with hemoglobin 8.8, but stable. Platelet count 239. Potassium low at 2.9 with CO2 of 28.6, BUN 20 and creatinine 1.91 consistent with end-stage renal disease, glucose 175 with a normal anion gap of 15. Lipase normal at 30. Patient continued to have pain, she was given additional dose of morphine. I did receive a call from the radiologist who mentioned that there was moderate portal venous gas. In review of the radiology report, it states no evidence of ischemic bowel. However, given the patient's sudden onset of pain, and continued pain, the concern is for ischemic bowel. I discussed patient with Dr. Shaun Schneider, who did review the CT imaging and there is definitely concern for ischemic bowel. He has seen and evaluated the patient in the ED. Given the complexity of the patient's recent admission, and comorbidities, he was able to discuss the patient with the [facility] and she was accepted as an ED to ED transfer to the service of Dr. Maldonado with general surgery. He also discussed the patient with the ED physician. Patient will be transported via ambulance to the ED [facility]. Ciprofloxacin and Flagyl were started and lactate added. Lactate was reviewed and is normal at 1.6. Disposition is transferred in guarded condition. History & Record Review Discussion w/independent historian: Patient Additional record(s) reviewed:: Prior inpatient record (At [facility], patient had ICU stay with sepsis and was on pressors and became encephalopathic, ID was consulted as well.) Lab Data Attestation: I reviewed the patient's lab results. Labs: Laboratory Results - last 24 hr 11/17/24 11/17/24 16:03 19:39 WBC 11.9 H RBC 2.51 L Hgb 8.8 L Hct 27.8 L MCV 110.8 H MCH 35.1 H MCHC 31.7 L RDW Std Deviation 81.1 H RDW Coeff of Lola 20.0 H Plt Count 239 MPV 9.6 Immature Gran % (Auto) 0.700 Neut % (Auto) 76.8 H Lymph % (Auto) 13.5 L [place] % (Auto) 7.8 Eos % (Auto) 0.6 Baso % (Auto) 0.6 Absolute Neuts (auto) 9.2 H Absolute Lymphs (auto) 1.61 Nucleated RBC % 0 Platelet Estimate A Polychromasia 1+ Anisocytosis 1+ Sodium 138 Potassium 2.9 L Chloride 94 L Carbon Dioxide 28.6 Anion Gap 15 BUN 20 H Creatinine 1.91 H Estim Creat Clear Calc 26.91 L Est GFR (MDRD) Non-Af 29 L BUN/Creatinine Ratio 10.3 Glucose 175 H Lactic Acid 1.6 Calcium 8.5 Phosphorus 2.1 L Total Bilirubin 0.55 AST 28 ALT 19 Alkaline Phosphatase 106 H Total Protein 6.7 Albumin 3.7 Globulin 3.0 Albumin/Globulin Ratio 1.2 Lipase 30 Radiography Diagnostic Testing: Clinical Impression(s) from Imaging Studies Abdomen/Pelvis CT 11/17/24 17:40 IMPRESSION: Moderate amount of portal venous gas, with extension into the left portal vein. No evidence of ischemic bowel. Findings may be secondary to recent reported bowel dilatation. 3.8cm infrarenal aortic ectasia with severe atherosclerotic calcification. Stable 3.7 cm partially calcified right adrenal lesion. Findings communicated with Dr. Quintanilla on 11/17/2024 at 6:35 p.m. Reading [facility] [place] [facility] [place] Discussion w/another healthcare provider: [employer] (Dr. Schneider) Discharge Plan Triage Chief Complaint: Abd Pain ED Provider: Reggie Quintanilla Dx/Rx/DC Orders Clinical Impression: Ischemia, bowel, ESRD (end stage renal disease) on dialysis, Nausea & vomiting, Hypokalemia Prescriptions: No Action cholecalciferol (vitamin D3) 25 mcg (1,000 unit) capsule 25 mcg PO DAILY atorvastatin 80 mg tablet 80 mg PO QHS clopidogrel 75 mg tablet 75 mg PO DAILY aspirin 81 mg tablet,delayed release (DR/EC) 81 mg PO DAILY pantoprazole 40 mg tablet,delayed release (DR/EC) 40 mg PO BID Mojgan-Kirk 0.8 mg tablet 1 tab PO DAILY nitroglycerin 0.4 mg tablet, sublingual 0.4 mg sublingual DAILY PRN (Reason: CHEST PAIN ) Rx Instructions: Dissolve 1 tablet under the tongue as needed for chest pain. sertraline 25 mg tablet 25 mg PO DAILY carvedilol 12.5 mg tablet 25 mg PO TUTHSA Rx Instructions: IN THE MORNINGS OF HSASU gabapentin 100 mg capsule 200 mg PO QHS amiodarone 200 mg tablet 200 mg PO DAILY metoprolol succinate 25 mg tablet extended release 24 hr 25 mg PO DAILY acetaminophen 500 mg capsule 1,000 mg PO Q6H PRN (Reason: fever or pain) oxycodone 5 mg tablet 5 mg PO 4X/DAY PRN PRN (Reason: pain) ondansetron HCl 8 mg tablet 8 mg PO Q8H PRN PRN (Reason: nausea/vomiting) sucralfate 1 gram tablet 1 g PO BID metoclopramide HCl [Reglan] 10 mg tablet 10 mg PO Q6H PRN (Reason: nausea and vomiting) 3 Days Qty: 12 0RF Velphoro 500 mg tablet,chewable 1,500 mg PO TID nystatin 100,000 unit/mL Suspension 500,000 unit PO 4X/DAY Qty: 0 0RF Rx Instructions: take a total of 28 doses then DC Sore Throat (benzocaine-menth) 15-3.6 mg Lozenge 1 irvin mucous membrane Q4H PRN (Reason: mouth/throat sore) Qty: 0 0RF albuterol sulfate 2.5 mg /3 mL (0.083 %) solution for nebulization 2.5 mg continuous nebulization Q2H PRN (Reason: wheezing) Qty: 1 0RF furosemide 80 mg tablet 80 mg PO BID Qty: 1 0RF carvedilol 25 mg tablet 25 mg PO QHS Rx Instructions: must administer with a meal/food Primary Care Provider: Elvin Becerra Referrals: Elvin Becerra MD [Primary Care Provider] - Print Language: Greek Disposition Disposition: Acute Care Hospital Discharge Location: [facility] Discharge Date/Time: 11/17/24 22:05
[2024-11-17] MEDS: Ondansetron 4 MG/2 ML Vial IV ×2 (16:20→18:50)
[2024-11-17] MEDS: Morphine 4 MG/ML Syringe IV ×2 (16:20→19:38)
[2024-11-17 16:43] LABS: Absolute Lymphocyte Count 1.61 X10^3/uL (0.83-4.51); Absolute Neutrophil Count 9.2 X10^3/uL (2.0-7.7); Basophil# 0.07 X10^3/uL; Basophil% 0.6 % (0-1); Eosinophil# 0.07 X10^3/uL; Eosinophils% 0.6 % (0-5); Hematocrit 27.8 % (37-47); Hemoglobin 8.8 g/dL (12.0-15.0); Lymphocyte # 1.61 X10^3/ul (0.83-4.51); Lymphocyte % 13.5 % (19-41); Mean Corp Hgb Conc 31.7 g/dL (32-36); Mean Corpuscular Hgb 35.1 pg (27.0-32.0); Mean Corpuscular Volume 110.8 fL (81-99); Mean Platelet Vol. 9.6 fl (6.2-12.0); Monocyte# 0.93 X10^3/uL; Monocyte% 7.8 % (0-10); NRBC Flagged by Analyzer 0 % (0-5); Neutrophil # 9.15 X10^3/uL (2.7-7.7); Neutrophil % 76.8 % (47-70); POSITIVE MORPHOLOGY YES; Platelet Count 239 K/mm3 (150-450); RBC Distribution Width SD 81.1 fl (35.1-43.9); Red Blood Count 2.51 M/mm3 (4.2-5.4); White Blood Count 11.9 K/mm3 (4.4-11.0)
[2024-11-17 16:53] LABS: Differential Indicated SCAN CRITERIA MET
[2024-11-17 17:07] LABS: Lipase 30 U/L (13-75)
[2024-11-17 17:12] LABS: ALB/GLOB Ratio 1.2 RATIO (0.9-2.4); AST(SGOT) 28 U/L (<=31); Alanine Aminotransfer ALT/SGPT 19 U/L (<=34); Albumin, Serum 3.7 g/dL (3.4-4.8); Alkaline Phosphatase 106 U/L (35-104); Anion Gap 15 (5-15); BUN 20 mg/dL (4-19); BUN/Creat Ratio 10.3 RATIO (10-20); Calcium,Total 8.5 mg/dL (7.6-11.0); Carbon Dioxide 28.6 mmol/L (21.0-32.0); Chloride 94 mmol/L (98-108); Creatinine, Serum 1.91 mg/dL (0.70-1.20); EST Glomerular Filtration Rate 29 (>60); Estimated Creatinine Clearance 26.91 ml/min (50-250); Glucose 175 mg/dL (70-99); Potassium 2.9 mmol/L (3.3-5.1); Protein, Total 6.7 g/dL (5.9-8.4); Sodium Level 138 mmol/L (133-145); Total Bilirubin 0.55 mg/dL (0.00-1.30)
[2024-11-17 17:15] LABS: Anisocytosis 1+; Platelet Estimate A (ADEQ); Polychromasia 1+
--- NOTE | 2024-11-17 17:40 | CT_ITS ---
PROCEDURE: ABDOMEN/PELVIS W IV CONT ONLY 11/17/2024 REASON FOR EXAM: PAIN TECHNIQUE: Abdomen CT without and with intravenous contrast. Coronal and Sagittal reconstruction series were provided. PATIENT PREPARATION: Per protocol ORAL CONTRAST TYPE: None. AMOUNT: mL CONTRAST: Omnipaque 350 VOLUME: 100mL Gauge IV One or more dose reduction techniques were used (e.g., Automated exposure control, adjustment of the mA and/or kV according to patient size, use of iterative reconstruction technique. COMPARISON: CT abdomen and pelvis 10/05/2024 and 10/02/2024 FINDINGS: Lung bases: Small loculated bilateral pleural effusions. Bibasilar atelectasis. Moderate cardiomegaly. Severe coronary artery calcifications. Liver: Homogeneous attenuation. No focal lesion. Gallbladder: No ductal dilation. No cholelithiasis or significant gallbladder wall thickening. Spleen: No splenomegaly. Scattered calcified granulomas. Pancreas: Normal size without evidence of mass surrounding inflammation or ductal dilation. Adrenals: Stable 3.7 cm partially calcified right adrenal lesion. Left adrenal gland is unremarkable. Kidneys: Sexsf-combjpc-rbad-left renal atrophy. Delayed right nephrogram. Stable cystic lesions in the right kidney, the largest in the interpolar region measures 12 mm. 5 mm right upper pole calcification. Bladder: Urinary bladder is unremarkable. Reproductive Organs: No pelvic mass. Bowel: Stomach is unremarkable. No bowel dilation or significant wall thickening. Moderate colonic stool. Appendix: Appendicolith without evidence of appendicitis. Lymph nodes: No suspicious lymph node enlargement. Vasculature: 3.8 cm ectasia infrarenal aorta with severe diffuse atherosclerotic calcification throughout the abdominal aorta and iliac arteries. Additionally, there is large amount of noncalcified plaque of the infrarenal aorta with significant luminal narrowing. Moderate amount of gas is noted within the portal vein (series 2, image 43) and within the portal venous system in the left hepatic lobe (series 2, image 36). Peritoneum / Retroperitoneum: No pneumoperitoneum. No ascites. Bones: Degenerative changes of the spine. Diffuse osteopenia. CT/Abdomen/Pelvis W IV Cont ONLY IMPRESSION: Moderate amount of portal venous gas, with extension into the left portal vein. No evidence of ischemic bowel. Findings may be secondary to recent reported bowel dilatation. 3.8cm infrarenal aortic ectasia with severe atherosclerotic calcification. Stable 3.7 cm partially calcified right adrenal lesion. Findings communicated with Dr. Quintanilla on 11/17/2024 at 6:35 p.m. Reading Location: [place]
[2024-11-17 18:07] VITALS: BP 144/63; PULSE 66; RESP 16; O2SAT 99
--- NOTE | 2024-11-17 19:40 | ED.RN ---
This RN attempted to complete the patient's medication list. However, patient is poor historian and denied knowing the medications that she is on.
[2024-11-17 20:00] VITALS: BP 114/68; PULSE 64; RESP 18; TEMP 36.7; O2SAT 97
--- NOTE | 2024-11-17 20:03 | CON.PCM.SX_ITS ---
Assessment & Plan Assessment/Plan (1) Pneumatosis intestinalis: PLAN: The patient has CT scan which revealed pneumatosis intestinalis of the small intestine that is in the hernia. She also has portal venous gas. Her abdomen is soft and tender. The hernia is reducible. After reviewing the CT scan it appears that the loop of bowel with pneumatosis and the air that is in the venous system are coming from the small bowel that is within the hernia. I called [facility] to try to get her transferred ER to ER as this patient is very complicated and has high acuity. I believe she needs a higher acuity center given the fact that she has ischemia on top of her heart conditions and she was unable to receive a heart cath and her ejection fraction is 37% and she has a AAA with diminutive flow with heavy calcification of vessels as well as renal failure and diabetes. We were able to contact [facility] and they accepted her for an ER to ER transfer and we are trying to get her moved as soon as possible and we will push the images to [facility]. Shaun Schneider MD Pager: [facility] [address] [place] [address], [address] [place] [address] Office: HPI Consult Data Date of Consult: 11/17/24 HPI Narrative HPI Narrative: BARI LAUGHLIN, is a 64 F who presents with abdominal pain from dialysis. The patient started having sudden acute onset abdominal pain according to her. She is a very poor historian. She does not remember her hospitalization but looking through clinic think it appears that she was recently admitted to [facility]. During that hospitalization she was put in the ICU after an CARDIOVASCULAR SPECIALIST was called and she was placed on pressors. Intensive care was consulted. She also had cardiology consulted who attempted a cardiac cath and was unable to be successful due to access issues. Apparently she also had infectious disease on board for sepsis. Patient is currently on Plavix and aspirin due to heart stents. The patient also has a AAA with a very small amount of flow and heavy calcifications in all of her vessels [facility] Medical History VRE (vancomycin resistant enterococcus) culture positive Decreased urination Hyponatremia COPD exacerbation Hyperkalemia CHF exacerbation Acute and chronic respiratory failure with hypoxia Anemia Pleuritic pain End-stage renal disease on hemodialysis ESRD (end stage renal disease) HLD (hyperlipidemia) HTN (hypertension) Osteoporosis On home oxygen therapy AAA (abdominal aortic aneurysm) Bilateral pleural effusion Acute hypoxemic respiratory failure Substance abuse Diabetes Dialysis patient Sleep apnea Congestive heart failure (CHF) Myocardial infarct Coronary artery disease Migraines Asthma Kidney disease History of high cholesterol Anxiety Depression PTSD (post-traumatic stress disorder) Home Medications ?Medication ?Instructions ?Recorded ?Last Taken ?Type cholecalciferol (vitamin D3) 25 25 mcg PO DAILY SUPPLE MENT 10/02/21 09/28/24 History mcg (1,000 unit) capsule aspirin 81 mg tablet,delayed 81 mg PO DAILY HEART 10/2609/28/24 History release atorvastatin 80 mg tablet 80 mg PO QHS CHOLESTEROL 09/28/24 History clopidogrel 75 mg tablet 75 mg PO DAILY BLOOD THINNER 11/14/22 09/28/24 History nitroglycerin 0.4 mg sublingual 0.4 mg sublingual ELLEN Y PRN CHEST 11/14/22 Unknown History tablet PAIN pantoprazole 40 mg tablet,delayed 40 mg PO BID ACID RE FLUX 11/14/22 09/28/24 History release vitamin B complex-vitamin C-folic 1 tab PO DAILY SUPPL EMENT 11/14/22 09/28/24 History acid 0.8 mg tablet (Mojgan-Kirk) sertraline 25 mg tablet 25 mg PO DAILY DEPRESSION 09/28/24 History carvedilol 12.5 mg tablet 25 mg PO TUTHSA 06/02/2410/21 History metoclopramide HCl 10 mg tablet 10 mg PO Q6H PRN nause a and 10/05/24 Unknown Rx (Reglan) vomiting 3 days #12 tabs sucroferric oxyhydroxide 500 mg 1,500 mg PO TID Unknown History chewable tablet (Velphoro) albuterol sulfate 2.5 mg/3 mL 2.5 mg (3 mL) continuous 10/11/24 09/29/24 Rx (0.083 %) solution for nebulization nebulization Q2H P RN wheezing #1 mL benzocaine 15 mg-menthol 3.6 mg 1 irvin mucous membrane Q4H PRN 10/11/24 Unknown Rx lozenges (Sore Throat (benzocaine mouth/throat sore #0 ea with menthol)) furosemide 80 mg tablet 80 mg PO BID #1 TAB 10/11/24 09/28/24 Rx nystatin 100,000 unit/mL oral 500,000 unit (5 mL) PO 4 X/DAY #0 mL 10/11/24 Unknown Rx suspension carvedilol 25 mg tablet 25 mg PO QHS 10/25/24 Unknow n History acetaminophen 500 mg capsule 1,000 mg PO Q6H PRN fever or pain 11/17/24 Unknown History amiodarone 200 mg tablet 200 mg PO DAILY 11/17/24 Unk nown History gabapentin 100 mg capsule 200 mg PO QHS 11/17/24 Unkno wn History metoprolol succinate 25 mg 25 mg PO DAILY 11/17/24 Unk nown History tablet,extended release 24 hr ondansetron HCl 8 mg tablet 8 mg PO Q8H PRN PRN nausea /vomiting 11/17/24 Unknown History oxycodone 5 mg tablet 5 mg PO 4X/DAY PRN PRN pain 11/17/24 Unknown History sucralfate 1 gram tablet 1 g PO BID 11/17/24 Unknown History Allergy/AdvReac Type Severity Reaction Status Date / Time Latex, Natural Rubber Allergy Rash Verified 10/06/24 21:45 Penicillins Allergy Rash Verified 10/06/24 21:45 Family History Other CAD (coronary artery disease) Heart disease Surgical History History of colectomy History of ligation of vein Hx of umbilical hernia repair History of arteriovenostomy for renal dialysis History of total hysterectomy History of coronary artery stent placement H/O tubal ligation History of section, classical Social History household members: none Smoking Status: Former smoker substance use type: does not use ROS Review of Systems ROS Unobtainable: due to mental status Physical Exam Const alert General Appearance: ill appearing HEENT normocephalic Eyes PERRL Lymph Lymphatic: no lymphadenopathy noted Chest inspection of chest normal Resp normal respiratory effort Cardio Rate: regular rate Rhythm: regular rhythm GI soft to palpation Palpation: tender and hernia Extremity normal to inspection Lab / Micro Data 11/17/24 16:03 11/17/24 16:03 Labs: Laboratory Results - last 24 hr 11/17/24 16:03: WBC 11.9 H, RBC 2.51 L, Hgb 8.8 L, Hct 27.8 L, MCV 110.8 H, MCH 35.1 H, MCHC 31.7 L, RDW Std Deviation 81.1 H, RDW Coeff of Lola 20.0 H, Plt Count 239, MPV 9.6, Immature Gran % (Auto) 0.700, Neut % (Auto) 76.8 H, Lymph % (Auto) 13.5 L, [place] % (Auto) 7.8, Eos % (Auto) 0.6, Baso % (Auto) 0.6, Absolute Neuts (auto) 9.2 H, Absolute Lymphs (auto) 1.61, Nucleated RBC % 0, Platelet Estimate A, Polychromasia 1+, Anisocytosis 1+, Sodium 138, Potassium 2.9 L, C hloride 94 L, Carbon Dioxide 28.6, Anion Gap 15, BUN 20 H, Creatinine 1.91 H, E stim Creat Clear Calc 26.91 L, Est GFR (MDRD) Non-Af 29 L, BUN/Creatinine Ratio 10.3, Glucose 175 H, Calcium 8.5, Total Bilirubin 0.55, AST 28, ALT 19, Alkaline Phosphatase 106 H, Total Protein 6.7, Albumin 3.7, Globulin 3.0, Albumin/Globulin Ratio 1.2, Lipase 30 Imaging Radiology Impression Abdomen/Pelvis CT 11/17/24 17:40 IMPRESSION: Moderate amount of portal venous gas, with extension into the left portal vein. No evidence of ischemic bowel. Findings may be secondary to recent reported bowel dilatation. 3.8cm infrarenal aortic ectasia with severe atherosclerotic calcification. Stable 3.7 cm partially calcified right adrenal lesion. Findings communicated with Dr. Quintanilla on 11/17/2024 at 6:35 p.m. Reading Location[facility]
[2024-11-17 20:27] LABS: Lactic Acid 1.6 mmol/L (0.0-2.0)
[2024-11-17 20:28] LABS: Phosphorus 2.1 mg/dL (2.7-4.5)
[2024-11-17] MEDS: metroNIDAZOLE 500 MG/100 ML BAG 100 MG IV (20:37)
[2024-11-17] MEDS: Ciprofloxacin 400 MG/200 ML BAG 200 MG IV (21:13)
--- NOTE | 2024-11-17 21:35 | ED.RN ---
This RN updated Alivia at [facility] on the patient's current treatment and plan to transfer the patient to [facility] at this time.
== END 2024-11-17 22:05 | disposition short-term general hospital (02) ==
PROVIDERS: Emergency Provider Emergency Medicine; PCP Family Medicine; Referring Provider Emergency Medicine; Visit Provider Emergency Medicine
DX: R10.13 Epigastric pain (principal); I13.2 Hypertensive heart and chronic kidney disease with heart failure and with stage 5 chronic kidney disease, or end stage renal disease; N18.6 End stage renal disease; I50.9 Heart failure, unspecified; J44.9 Chronic obstructive pulmonary disease, unspecified; E11.22 Type 2 diabetes mellitus with diabetic chronic kidney disease; Z79.82 Long term (current) use of aspirin; Z90.710 Acquired absence of both cervix and uterus; E78.00 Pure hypercholesterolemia, unspecified; R11.2 Nausea with vomiting, unspecified; I25.10 Atherosclerotic heart disease of native coronary artery without angina pectoris; E87.6 Hypokalemia; Z87.891 Personal history of nicotine dependence; Z99.2 Dependence on renal dialysis; Z79.02 Long term (current) use of antithrombotics/antiplatelets; I25.2 Old myocardial infarction; Z79.899 Other long term (current) drug therapy; F41.9 Anxiety disorder, unspecified; F32.A Depression, unspecified; Z90.49 Acquired absence of other specified parts of digestive tract; Z95.5 Presence of coronary angioplasty implant and graft; Z98.51 Tubal ligation status; K55.9 Vascular disorder of intestine, unspecified
CPT/HCPCS: 74177; 80053; 83605; 83690; 84100; 85025; 93005; 96365; 96368; 96375; 96376; 99285; Q9967; A4216; J2405

== ENCOUNTER 2024-12-03 23:45 | Emergency (ER) | payer MEDICARE, MEDICAID, SELFPAY ==
[2024-12-03 23:46] VITALS: BP 101/69; PULSE 81; RESP 20; TEMP 37; O2SAT 100; BMI 32.3
[2024-12-03 23:51] VITALS: BP 101/69; PULSE 79; RESP 20; TEMP 37; O2SAT 100
--- NOTE | 2024-12-04 00:21 | CT_ITS ---
PROCEDURE: ABDOMEN/PEL W ORAL CONT ONLY 12/04/2024 REASON FOR EXAM: ABD PAIN S/P RESECTION TECHNIQUE: Abdomen and pelvis CT without intravenous contrast. Noncontrast technique limits evaluation of the abdominal and pelvic viscera. Coronal and Sagittal reconstruction series were provided. One or more dose reduction techniques were used (e.g., Automated exposure control, adjustment of the mA and/or kV according to patient size, use of iterative reconstruction technique). PATIENT PREPARATION: Per protocol ORAL CONTRAST TYPE: Gastrografin COMPARISON: CT abdomen and pelvis dated November 17 2024 FINDINGS: Lung bases: Small pleural effusion bilaterally with associated compressive atelectasis. Liver: The liver measures 15.6 cm in craniocaudal dimension. Hyperdense material seen along the inferior right hepatic lobe possibly representing hemorrhage could be related to recent surgical resection. Gallbladder: Status post cholecystectomy Spleen: Unremarkable Pancreas: No main pancreatic ductal dilation. Adrenals: There is a partially calcified mass within the right adrenal gland measuring approximately 3.3 x 3.8 cm, raising concern for malignancy. The left adrenal gland is unremarkable. Kidneys: Kidneys are atrophic bilaterally. Several punctate nonobstructing calculi within the bilateral renal pelvises. Bladder: Decompressed Reproductive Organs: Status post hysterectomy. Bowel: Postsurgical changes of a recent bowel resection. No small bowel or large bowel obstruction or dilation. Appendix: Unremarkable Lymph nodes: No lymphadenopathy. Vasculature: Saccular infrarenal aneurysmal dilation measuring approximately 3.1 x 3.3 cm. Peritoneum / Retroperitoneum: Unremarkable Abdominal wall: Large ventral wall hernia sac containing bowel fluid and mesenteric fat. Bones: No aggressive osseous lesions. No acute fractures. CT/Abdomen/Pel W ORAL Cont Only IMPRESSION: *Hyperdense material along the inferior aspect of the right hepatic lobe, could be related to blood products recent bowel resection. Recommend further evaluation with CTA as clinically indicated. *Large ventral wall hernia sac containing bowel, fluid, and mesenteric fat. *Saccular infrarenal aneurysmal dilation measuring up to 3.3 cm. *Several punctate nonobstructing calculi within the bilateral renal pelvis sees . *Partially calcified mass within the right adrenal gland, raising concern for m alignancy. *Small pleural effusions bilaterally with associated compressive atelectasis. Discussed with Dr. Rand at 2:41am SIGNALMAN on 12/04/24 Reading Location: [id number]
[2024-12-04 00:32] LABS: Absolute Lymphocyte Count 1.37 X10^3/uL (0.83-4.51); Absolute Neutrophil Count 11.6 X10^3/uL (2.0-7.7); Basophil# 0.03 X10^3/uL; Basophil% 0.2 % (0-1); Eosinophil# 0.01 X10^3/uL; Eosinophils% 0.1 % (0-5); Hematocrit 30.6 % (37-47); Hemoglobin 9.7 g/dL (12.0-15.0); Lymphocyte # 1.37 X10^3/ul (0.83-4.51); Lymphocyte % 9.6 % (19-41); Mean Corp Hgb Conc 31.7 g/dL (32-36); Mean Corpuscular Hgb 31.1 pg (27.0-32.0); Mean Corpuscular Volume 98.1 fL (81-99); Mean Platelet Vol. 9.9 fl (6.2-12.0); Monocyte% 7.7 % (0-10); NRBC Flagged by Analyzer 0 % (0-5); Neutrophil # 11.57 X10^3/uL (2.7-7.7); Neutrophil % 81.5 % (47-70); POSITIVE MORPHOLOGY YES; Platelet Count 224 K/mm3 (150-450); RBC Distribution Width CV 21.4 % (11.6-14.6); RBC Distribution Width SD 75.3 fl (35.1-43.9); Red Blood Count 3.12 M/mm3 (4.2-5.4); White Blood Count 14.2 K/mm3 (4.4-11.0)
[2024-12-04] MEDS: Morphine 4 MG/ML Syringe IV (00:33)
[2024-12-04] MEDS: Ondansetron 4 MG/2 ML Vial IV (00:33)
[2024-12-04 00:38] LABS: Differential Indicated SCAN CRITERIA MET
[2024-12-04 00:50] LABS: Lipase 17 U/L (13-75)
[2024-12-04 00:51] VITALS: BP 90/54; PULSE 65; RESP 21; TEMP 36.3; O2SAT 100
[2024-12-04 01:04] LABS: AST(SGOT) 24 U/L (<=31); Alanine Aminotransfer ALT/SGPT 9 U/L (<=34); Albumin, Serum 2.6 g/dL (3.4-4.8); Alkaline Phosphatase 95 U/L (35-104); Anion Gap 13 (5-15); BUN 25 mg/dL (4-19); BUN/Creat Ratio 11.3 RATIO (10-20); Bilirubin, Direct 0.48 mg/dL (0.00-0.30); Calcium,Total 7.9 mg/dL (7.6-11.0); Carbon Dioxide 28.9 mmol/L (21.0-32.0); Chloride 93 mmol/L (98-108); EST Glomerular Filtration Rate 24 (>60); Estimated Creatinine Clearance 23.71 ml/min (50-250); Glucose 96 mg/dL (70-99); Potassium 4.2 mmol/L (3.3-5.1); Protein, Total 5.7 g/dL (5.9-8.4); Sodium Level 135 mmol/L (133-145); Total Bilirubin 0.86 mg/dL (0.00-1.30)
[2024-12-04 01:43] LABS: Anisocytosis 2+; Differential Comment SCANNED; Hypochromasia 1+; Microcytosis 1+; Stomatocyte RARE
[2024-12-04 01:45] VITALS: PULSE 70; RESP 20; O2SAT 100
[2024-12-04 03:00] VITALS: BP 97/56
--- NOTE | 2024-12-04 03:00 | RAD_ITS ---
PROCEDURE: CHEST 1 VIEW (PORTABLE) 12/04/2024 REASON FOR EXAM: COUGH TECHNIQUE: Frontal view of the chest. COMPARISON: Chest radiograph dated October 25, 2024 FINDINGS: Hardware: None Heart: Cardiomediastinal silhouette is enlarged. Mild central vascular congestion. Lungs: Streaky opacities within bilateral lung bases, likely representing atelectasis or pneumonitis. Bones: No aggressive osseous lesions. No acute fractures. Other: None RAD/Chest 1 View (Portable) IMPRESSION: *Streaky opacities within bilateral lung bases, likely representing atelectasis or pneumonitis. *Cardiomegaly. Reading Location: [id number]
--- NOTE | 2024-12-04 03:37 | CT_ITS ---
PROCEDURE: CTA ABD/PELVIS W/WO CONTRAST 12/04/2024 REASON FOR EXAM: ABDOMINAL PAIN STATUS POST RESECTION TECHNIQUE: CTA imaging of the abdomen and pelvis with intravenous contrast. Coronal and Sagittal reconstruction series were provided. 3D, 3D post processing, 3D reconstructions, Maximum intensity projection (MIPs) Volume rendering and Shaded surface rendering was provided. CONTRAST: Isovue 370 VOLUME: 100 mL 18 gauge IV One or more dose reduction techniques were used (e.g., Automated exposure control, adjustment of the mA and/or kV according to patient size, use of iterative reconstruction technique). RADIATION DOSE SUMMARY: CTDlvol: 19.9 mGy DLP: 1048.8 mGycm COMPARISON: None available FINDINGS: Aorta: There is an aneurysmal dilation of the infrarenal abdominal wall measuring up to 3.5 by 3.4 cm. Iliac Arteries: Calcified and noncalcified atherosclerotic plaque within the abdominal aorta and iliac arteries. Celiac: Calcified atherosclerotic plaque within the proximal celiac artery resulting in moderate stenosis. SMA: Calcified atherosclerotic plaque within the proximal SMA resulting in moderate stenosis. FARHAN : Unremarkable Right Renal: Patent Left Renal: Patent Lung bases: Small pleural effusion bilaterally with associated compressive atelectasis. Liver: The liver measures 15.6 cm in craniocaudal dimension. Hyperdense material seen along the inferior right hepatic lobe possibly representing hemorrhage could be related to recent surgical resection. Gallbladder: Status post cholecystectomy Spleen: Unremarkable Pancreas: No main pancreatic ductal dilation. Adrenals: There is a partially calcified mass within the right adrenal gland measuring approximately 3.3 x 3.8 cm, raising concern for malignancy. The left adrenal gland is unremarkable. Kidneys: Kidneys are atrophic bilaterally. Several punctate nonobstructing calculi within the bilateral renal pelvises. Bladder: Decompressed Reproductive Organs: Status post hysterectomy. Bowel: Postsurgical changes of a recent bowel resection. No small bowel or large bowel obstruction or dilation. Appendix: Unremarkable Lymph nodes: No lymphadenopathy. Vasculature: Saccular infrarenal aneurysmal dilation measuring approximately 3.1 x 3.3 cm. Peritoneum / Retroperitoneum: Unremarkable Abdominal wall: Large ventral wall hernia sac containing bowel fluid and mesenteric fat. Bones: No aggressive osseous lesions. No acute fractures. CT/CTA Abd/Pelvis W/WO Contrast IMPRESSION: *No evidence of active contrast extravasation to suggest active bleeding. Hyper dense material along the inferior aspect of the right hepatic lobe, could be related to blood products recent bowel resection. Large ventral wall hernia sac containing bowel, fluid, and mesenteric fat. *Saccular infrarenal aneurysmal dilation measuring up to 3.3 cm. *Several punctate nonobstructing calculi within the bilateral renal pelvis sees . *Partially calcified mass within the right adrenal gland, raising concern for m alignancy. *Small pleural effusions bilaterally with associated compressive atelectasis. *Postsurgical changes with a ventral laparotomy. Reading Location: [id number]
--- NOTE | 2024-12-04 04:48 | EX.ED.DYSGE1 ---
HPI History of Present Illness Chief Complaint: Abd Pain Informant: patient, EMS and SNF Narrative Narrative: Patient is a 64-year-old female with end-stage renal disease on dialysis Sunday and Sunday. Which she states she received /Sunday. She also has a history of hypertension hyperlipidemia COPD and congestive heart failure and requires oxygen at baseline. She had a colectomy at an outside hospital roughly 1 week ago. Patient states that after returning to her [facility] she began developing coughing spells that are productive of sputum. She states that with the increased coughing there is increased abdominal pain and secondary to the symptoms she was sent in for evaluation [facility] Medical History VRE (vancomycin resistant enterococcus) culture positive Decreased urination Hyponatremia COPD exacerbation Hyperkalemia CHF exacerbation Acute and chronic respiratory failure with hypoxia Anemia Pleuritic pain End-stage renal disease on hemodialysis ESRD (end stage renal disease) HLD (hyperlipidemia) HTN (hypertension) Osteoporosis On home oxygen therapy AAA (abdominal aortic aneurysm) Bilateral pleural effusion Acute hypoxemic respiratory failure Substance abuse Diabetes Dialysis patient Sleep apnea Congestive heart failure (CHF) Myocardial infarct Coronary artery disease Migraines Asthma Kidney disease History of high cholesterol Anxiety Depression PTSD (post-traumatic stress disorder) Home Medications ?Medication ?Instructions ?Recorded ?Last Taken ?Type cholecalciferol (vitamin D3) 25 25 mcg PO DAILY SUPPLEMENT 10/02/21 09/28/24 History mcg (1,000 unit) capsule aspirin 81 mg tablet,delayed 81 mg PO DAILY HEART 11/14/22 09/28/24 History release atorvastatin 80 mg tablet 80 mg PO QHS CHOLESTEROL 11/14/22 09/28/24 History nitroglycerin 0.4 mg sublingual 0.4 mg sublingual DAILY PRN CHEST 11/14/22 Unknown History tablet PAIN pantoprazole 40 mg tablet,delayed 40 mg PO BID ACID REFLUX 11/14/22 09/28/24 History release vitamin B complex-vitamin C-folic 1 tab PO DAILY SUPPLEMENT 11/14/22 09/28/24 History acid 0.8 mg tablet (Mojgan-Kirk) sertraline 25 mg tablet 25 mg PO DAILY DEPRESSION 08/07/23 09/28/24 History carvedilol 12.5 mg tablet 25 mg PO TUTHSA 06/02/24 09/28/24 History metoclopramide HCl 10 mg tablet 10 mg PO Q6H PRN nausea and 10/05/24 Unknown Rx (Reglan) vomiting 3 days #12 tabs sucroferric oxyhydroxide 500 mg 1,500 mg PO TID 10/06/24 Unknown History chewable tablet (Velphoro) albuterol sulfate 2.5 mg/3 mL 2.5 mg (3 mL) continuous 10/11/24 09/29/24 Rx (0.083 %) solution for nebulization nebulization Q2H PRN wheezing #1 mL benzocaine 15 mg-menthol 3.6 mg 1 irvin mucous membrane Q4H PRN 10/11/24 Unknown Rx lozenges (Sore Throat (benzocaine mouth/throat sore #0 ea with menthol)) furosemide 80 mg tablet 80 mg PO BID #1 TAB 10/11/24 09/28/24 Rx carvedilol 25 mg tablet 25 mg PO QHS 10/25/24 Unknown History acetaminophen 500 mg capsule 1,000 mg PO Q6H PRN fever or pain 11/17/24 Unknown History amiodarone 200 mg tablet 200 mg PO DAILY 11/17/24 Unknown History gabapentin 100 mg capsule 200 mg PO QHS 11/17/24 Unknown History metoprolol succinate 25 mg 37.5 mg PO DAILY 11/17/24 Unknown History tablet,extended release 24 hr ondansetron HCl 8 mg tablet 8 mg PO Q8H PRN PRN nausea/vomiting 11/17/24 Unknown History oxycodone 5 mg tablet 5 mg PO 4X/DAY PRN PRN pain 11/17/24 Unknown History sucralfate 1 gram tablet 1 g PO BID 11/17/24 Unknown History apixaban 2.5 mg tablet 2.5 mg PO BID 12/04/24 Unknown History cyanocobalamin (vitamin B-12) 100 100 mcg PO DAILY 12/04/24 Unknown History mcg tablet (Vitamin B-12) doxycycline hyclate 100 mg capsule 100 mg PO DAILY 12/04/24 Unknown History folic acid 1 mg tablet 1,000 mcg PO DAILY 12/04/24 Unknown History midodrine .ROUTE 12/04/24 Unknown History omeprazole 20 mg capsule,delayed 20 mg PO DAILY 12/04/24 Unknown History release sennosides 8.6 mg tablet 8.6 mg PO BID 12/04/24 Unknown History (Black-Draught Lax-Senna) Allergy/AdvReac Type Severity Reaction Status Date / Time Latex, Natural Rubber Allergy Rash Verified 12/03/24 23:51 Penicillins Allergy Rash Verified 12/03/24 23:51 Family History Other CAD (coronary artery disease) Heart disease Surgical History History of colectomy History of ligation of vein Hx of umbilical hernia repair History of arteriovenostomy for renal dialysis History of total hysterectomy History of coronary artery stent placement H/O tubal ligation History of section, classical Social History household members: none Smoking Status: Former smoker substance use type: does not use ROS ROS ED Constitutional Constitutional ED: Denies chills or fever(s) Eyes Eyes: Denies blurry vision or change in vision ENT ENT ED: Reports rhinorrhea; Denies sore throat Cardiovascular Cardiovascular: Denies chest pain Respiratory/Chest Respiratory/Chest: Reports cough; Denies dyspnea Gastrointestinal Gastrointestinal: Reports abdominal pain; Denies constipation, diarrhea, nausea or vomiting Musculoskeletal Musculoskeletal: Denies myalgias Integumentary Denies rash Neurologic Neurologic: Denies headache(s) Hematologic/Lymphatic Hematologic/Lymphatic: Reports easy bleeding and easy bruising Allergic/Immunologic Allergic/Immunologic ED: Denies mouth swelling or tongue swelling EXAM Physical Exam Const Vital Signs: 12/03/24 23:46 12/03/24 23:51 12/04/24 00:51 Temperature 98.6 F 98.6 F 97.4 F L Temperature Source Oral Oral Oral Pulse Rate 81 79 65 Respiratory Rate 20 H 20 H 21 H Blood Pressure 101/69 101/69 90/54 L Blood Pressure Mean 79 79 66 Pulse Ox 100 100 100 Oxygen Delivery Method Nasal Cannula Nasal Cannula Nasal Cannula Oxygen Flow Rate (L/min) 3 3 3 12/04/24 01:45 12/04/24 03:00 12/04/24 05:00 Temperature Temperature Source Pulse Rate 70 66 Respiratory Rate 20 H 19 H Blood Pressure 97/56 L 97/65 Blood Pressure Mean 69 75 Pulse Ox 100 100 Oxygen Delivery Method Nasal Cannula Nasal Cannula Oxygen Flow Rate (L/min) 3 3 12/04/24 05:27 Temperature 98 F Temperature Source Pulse Rate 66 Respiratory Rate 19 H Blood Pressure 97/65 Blood Pressure Mean 75 Pulse Ox 100 Oxygen Delivery Method Oxygen Flow Rate (L/min) Positive well nourished, well developed and obese General Appearance ED: well developed Nutritional Appearance: obese HEENT Reports dry mucous membranes HEENT Narrative: No tongue or lip swelling no oral lesions no airway edema or compromise Mucous membranes are dry and tacky There is cobblestoning noted in the posterior pharynx consistent with sinus drainage; no secondary changes to suggest infection Mouth ED: Yes dry mucous membranes Mouth: dry mucous membranes Eyes PERRL and EOMs intact bilaterally General Eye ED: Negative for scleral icterus Neck supple and no JVD Neck Narrative: No nuchal rigidity or meningeal signs Resp normal respiratory effort Resp Narrative: Breath sounds are diminished throughout with faint expiratory wheeze and rhonchi in the bilateral bases consistent with history of COPD but no signs of respiratory distress Cardio regular rate and regular rhythm GI GI Narrative: Abdomen is soft and nondistended with hypoactive bowel sounds. There is a surgical wound in the center held together with rhonda that is overall clean dry and intact without secondary findings to suggest infection. There is a SONIA drain in the right upper quadrant draining sanguinous fluid. No pulsatile mass. No peritoneal signs. No fluid wave. Extremity Extremity Narrative: +1 pitting edema to the bilateral lower extremities that is equal and symmetric per patient Neuro oriented x3 and CN's II-XII intact bilaterally Sensorium / Orientation: alert Psych Psych Narrative: Patient has a flat affect Skin Skin Narrative: Skin turgor is increased MDM MDM MDM Narrative Medical decision making narrative: Patient arrived to the ER in no acute respiratory distress satting 100% on her normal 3 L. She reported abdominal pain status post colon resection and therefore there is concern for anastomotic leak secondary infection such as diverticulitis or intestinal abscess or small bowel obstruction. However she is also had congestion and cough so there is concern for viral infection such as COVID influenza or RSV. Patient could also have potential pneumonia. She did report that her abdominal pain worsens with coughing indicating this is most likely musculoskeletal. However in order to rule out pneumonia or above abdominal pathology a CT scan with oral contrast was performed as well as a chest x-ray. Chest x-ray showed atelectasis without obvious infiltrate. CT scan of the abdomen pelvis with contrast did not show any type of anastomotic leak. The radiologist did note a mixed hypodense mass in the right upper quadrant concerning for potential bleed. Secondary to this he requested a CTA which was performed. This revealed postsurgical changes without obvious signs of acute bleeding or infection. The patient did test positive for COVID which explains her congestion and cough. However at this time she does not have acute blood loss anemia she is not showing signs of postoperative infection or obstruction or postoperative complications such as intestinal anastomosis leak. Secondary to the use of IV contrast nephrology was contacted. They state that as she had dialysis on Sunday and is scheduled for Sunday that 1 day in between after contrast administration is not sufficient enough to administer emergent dialysis session. Therefore at this time postoperative complications have been excluded based on her labs and imaging and with the COVID she is not in acute respiratory distress as she is stable at her baseline oxygen value and therefore can return to the [facility] for continued care History & Record Review Discussion w/independent historian: Patient Lab Data Attestation: I reviewed the patient's lab results. Labs: Laboratory Results - last 24 hr 12/04/24 12/04/24 00:00 06:24 WBC 14.2 H RBC 3.12 L Hgb 9.7 L Hct 30.6 L MCV 98.1 MCH 31.1 MCHC 31.7 L RDW Std Deviation 75.3 H RDW Coeff of Lola 21.4 H Plt Count 224 MPV 9.9 Immature Gran % (Auto) 0.900 Neut % (Auto) 81.5 H Lymph % (Auto) 9.6 L Waller % (Auto) 7.7 Eos % (Auto) 0.1 Baso % (Auto) 0.2 Absolute Neuts (auto) 11.6 H Absolute Lymphs (auto) 1.37 Nucleated RBC % 0 Differential Comment SCANNED Hypochromasia 1+ Anisocytosis 2+ Microcytosis 1+ Stomatocytes RARE Sodium 135 Potassium 4.2 Chloride 93 L Carbon Dioxide 28.9 Anion Gap 13 BUN 25 H Creatinine 2.20 H Estim Creat Clear Calc 23.71 L Est GFR (MDRD) Non-Af 24 L BUN/Creatinine Ratio 11.3 Glucose 96 Calcium 7.9 Total Bilirubin 0.86 Direct Bilirubin 0.48 H AST 24 ALT 9 Alkaline Phosphatase 95 Total Protein 5.7 L Albumin 2.6 L Globulin 3.0 Lipase 17 POC Glucose 78 Radiography Diagnostic Testing: Clinical Impression(s) from Imaging Studies Abdomen CT 12/04/24 00:21 IMPRESSION: *Hyperdense material along the inferior aspect of the right hepatic lobe, could be related to blood products recent bowel resection. Recommend further evaluation with CTA as clinically indicated. *Large ventral wall hernia sac containing bowel, fluid, and mesenteric fat. *Saccular infrarenal aneurysmal dilation measuring up to 3.3 cm. *Several punctate nonobstructing calculi within the bilateral renal pelvis sees. *Partially calcified mass within the right adrenal gland, raising concern for malignancy. *Small pleural effusions bilaterally with associated compressive atelectasis. Discussed with Dr. Rand at 2:41am [employer] HAND on 12/04/24 Reading Location: [facility] Chest X-Ray 12/04/24 03:00 IMPRESSION: *Streaky opacities within bilateral lung bases, likely representing atelectasis or pneumonitis. *Cardiomegaly. Reading Location: [facility] Abdomen/Pelvis CTA 12/04/24 03:37 IMPRESSION: *No evidence of active contrast extravasation to suggest active bleeding. Hyperdense material along the inferior aspect of the right hepatic lobe, could be related to blood products recent bowel resection. Large ventral wall hernia sac containing bowel, fluid, and mesenteric fat. *Saccular infrarenal aneurysmal dilation measuring up to 3.3 cm. *Several punctate nonobstructing calculi within the bilateral renal pelvis sees. *Partially calcified mass within the right adrenal gland, raising concern for malignancy. *Small pleural effusions bilaterally with associated compressive atelectasis. *Postsurgical changes with a ventral laparotomy. Reading Location: [facility] Chest x-ray as interpreted by the emergency medicine physician reveals hazy opacities in the bilateral lung bases consistent with atelectasis Discharge Plan Triage Chief Complaint: Abd Pain ED Provider: Po Rand Dx/Rx/DC Orders Clinical Impression: COVID-19, ESRD (end stage renal disease) on dialysis, Acute postoperative abdominal pain, Essential hypertension, COPD (chronic obstructive pulmonary disease), Congestive heart failure Instructions: Coronavirus Disease 2019 (COVID-19): Caring for Yourself or Others, Pain Management After Surgery Prescriptions: No Action cholecalciferol (vitamin D3) 25 mcg (1,000 unit) capsule 25 mcg PO DAILY atorvastatin 80 mg tablet 80 mg PO QHS aspirin 81 mg tablet,delayed release (DR/EC) 81 mg PO DAILY pantoprazole 40 mg tablet,delayed release (DR/EC) 40 mg PO BID Mojgan-Kirk 0.8 mg tablet 1 tab PO DAILY nitroglycerin 0.4 mg tablet, sublingual 0.4 mg sublingual DAILY PRN (Reason: CHEST PAIN ) Rx Instructions: Dissolve 1 tablet under the tongue as needed for chest pain. sertraline 25 mg tablet 25 mg PO DAILY carvedilol 12.5 mg tablet 25 mg PO TUTHSA Rx Instructions: IN THE MORNINGS OF gabapentin 100 mg capsule 200 mg PO QHS amiodarone 200 mg tablet 200 mg PO DAILY metoprolol succinate 25 mg tablet extended release 24 hr 37.5 mg PO DAILY acetaminophen 500 mg capsule 1,000 mg PO Q6H PRN (Reason: fever or pain) oxycodone 5 mg tablet 5 mg PO 4X/DAY PRN PRN (Reason: pain) ondansetron HCl 8 mg tablet 8 mg PO Q8H PRN PRN (Reason: nausea/vomiting) sucralfate 1 gram tablet 1 g PO BID apixaban 2.5 mg tablet 2.5 mg PO BID doxycycline hyclate 100 mg capsule 100 mg PO DAILY Rx Instructions: stop 12/07/24 folic acid 1 mg tablet 1,000 mcg PO DAILY midodrine .ROUTE omeprazole 20 mg capsule,delayed release(DR/EC) 20 mg PO DAILY sennosides [Black-Draught Lax-Senna] 8.6 mg tablet 8.6 mg PO BID cyanocobalamin (vitamin B-12) [Vitamin B-12] 100 mcg tablet 100 mcg PO DAILY metoclopramide HCl [Reglan] 10 mg tablet 10 mg PO Q6H PRN (Reason: nausea and vomiting) 3 Days Qty: 12 0RF Velphoro 500 mg tablet,chewable 1,500 mg PO TID Sore Throat (benzocaine-menth) 15-3.6 mg Lozenge 1 irvin mucous membrane Q4H PRN (Reason: mouth/throat sore) Qty: 0 0RF albuterol sulfate 2.5 mg /3 mL (0.083 %) solution for nebulization 2.5 mg continuous nebulization Q2H PRN (Reason: wheezing) Qty: 1 0RF furosemide 80 mg tablet 80 mg PO BID Qty: 1 0RF carvedilol 25 mg tablet 25 mg PO QHS Rx Instructions: must administer with a meal/food Primary Care Provider: Supa Montes De Oca Referrals: Supa Montes De Oca MD [Primary Care Provider] - Activity Restrictions/Additional Instructions: The CT scan of the abdomen and pelvis shows that there is no leak from your recent surgery or signs of active bleeding or secondary infection. You tested positive for COVID which will be the reason for your cough and congestion. Based on your exam and workup I feel your pain is related to increased muscle spasm and tension from your coughing spells. Continue your home medication as directed by your doctor and return to the ER should you have any further concerns Print Language: Swedish Disposition Disposition: Home, Self Care
[2024-12-04 05:00] VITALS: BP 97/65; PULSE 66; RESP 19; O2SAT 100
[2024-12-04 05:27] VITALS: BP 97/65; PULSE 66; RESP 19; TEMP 36.6; O2SAT 100
--- NOTE | 2024-12-04 05:30 | ED.RN ---
report called to [facility].
[2024-12-04 06:42] LABS: Bedside Glucose 78 mg/dL (74-106)
== END 2024-12-04 07:53 | disposition home or self-care (01) ==
PROVIDERS: Emergency Provider Emergency Medicine; PCP Family Medicine; Visit Provider Emergency Medicine
DX: U07.1 COVID-19 (principal); I13.2 Hypertensive heart and chronic kidney disease with heart failure and with stage 5 chronic kidney disease, or end stage renal disease; N18.6 End stage renal disease; I50.9 Heart failure, unspecified; J44.9 Chronic obstructive pulmonary disease, unspecified; E11.22 Type 2 diabetes mellitus with diabetic chronic kidney disease; G89.18 Other acute postprocedural pain; E78.00 Pure hypercholesterolemia, unspecified; Z90.710 Acquired absence of both cervix and uterus; I25.10 Atherosclerotic heart disease of native coronary artery without angina pectoris; Z99.2 Dependence on renal dialysis; Z87.891 Personal history of nicotine dependence; Z90.49 Acquired absence of other specified parts of digestive tract; Z99.81 Dependence on supplemental oxygen; Z79.82 Long term (current) use of aspirin; Z79.899 Other long term (current) drug therapy; I25.2 Old myocardial infarction; F43.10 Post-traumatic stress disorder, unspecified; F41.9 Anxiety disorder, unspecified; F32.A Depression, unspecified; Z95.5 Presence of coronary angioplasty implant and graft; Z98.51 Tubal ligation status
CPT/HCPCS: 71045; 74174; 74176; 80048; 80076; 82962; 83690; 85025; 87631; 96374; 96375; 99285; Q9967; A4216; J2405